=== PATIENT | female | born 1940 | race Caucasian/White ===

== ENCOUNTER 2016-06-10 13:27 | Inpatient (IN) | payer OTHER ==
[~2016-06-10] VITALS: Ht 160 cm; Wt 81.5 kg
[~2016-06-10 13:27] MED LIST: ALBUTEROL; BENAZEPRIL; CALC1TAB80 PO; GABA300C PO; GLYBURIDE; IBUP800T25 PO; LORATADINE; MULT1TAB59 PO; PHEN100C PO; SIMVASTATIN; SITA1TAB7 PO; ZOC10 PO
[2016-06-10 13:30] VITALS: Ht 160 cm; Wt 81.5 kg
--- NOTE | 2016-06-10 16:20 | RADRPT ---
PROCEDURE: XR Ankle. CLINICAL INDICATION: Left ankle pain TECHNIQUE: 3 views of the left ankle were performed. COMPARISON: None. FINDINGS: There is no evidence of acute fracture. There is diffuse soft tissue swelling. There is a plantar calcaneal enthesophyte. There are vascular calcifications. IMPRESSION: No radiographic evidence of acute osseous abnormality noting diffuse soft tissue swelling. RPTAT: [facility] .Gene Mason MD, MD Date Time Electronically viewed and signed by .Gene Mason MD, on 06/10/2016 16:20 .K/
--- NOTE | 2016-06-10 16:23 | RADRPT ---
PROCEDURE: XR right and left feet CLINICAL INDICATION: Bilateral foot pain TECHNIQUE: 3 views of the right foot and 3 views of the left foot were obtained. COMPARISON: No prior studies are available for comparison. FINDINGS: Right foot: There is erosive change of the third distal phalanx concerning for osteomyelitis. There is no evidence of acute fracture. There is a hallux valgus deformity with moderate degenerative ch anges at the first metatarsophalangeal joint and adjacent medial soft tissue swelling with a chronic -appearing capsular/soft tissue ossification. There are mild degenerative changes at the tarsometat arsal joints. There are vascular calcifications. There is a plantar calcaneal enthesophyte. Left foot: There is erosive change of the second distal phalanx concerning for osteomyelitis. There is no evidence of acute fracture. There is a hallux valgus deformity with moderate degenerative bobbi nges at the first metatarsophalangeal joint. There are mild degenerative changes at the tarsometata rsal joints. There are vascular calcifications. There is a plantar calcaneal enthesophyte. IMPRESSION: 1. Erosive changes are seen involving the right third distal phalanx and the left second distal phal anx, concerning for osteomyelitis, to be correlated clinically. If clinically indicated MRI may pro vide additional detail. 2. Hallux valgus deformities with moderate degenerative changes at the metatarsophalangeal joints bi laterally noting adjacent soft tissue swelling. 3. Diffuse soft tissue swelling and vascular calcifications bilaterally. RPTAT: [facility] .Gene Mason MD, Date Time Electronically viewed and signed by .Gene Mason MD, on 06/10/2016 16:23 .K/
[2016-06-10] MEDS ORDERED: ACETAMINOPHEN 325 MG TAB PO ONE (17:00)
[2016-06-10] MEDS ORDERED: IBUPROFEN 200 MG TAB PO ONE (17:00)
--- NOTE | 2016-06-10 17:02 | ERD ---
ER Documentation Chief Complaint Date/Time DATE: 06/10/16 TIME: 16:59 Chief Complaint BILATERAL TOE NON HEALING WOUND.Pt DIABETIC HPI This pleasant 75-year-old [place]bourgish-speaking female presented to emergency department today with draining left foot third phalanx ulcer/hammertoe. Right foot presents with nondraining ulcer, hammertoe, second phalanx, patient is a diabetic, history of foot ulcers in the past. Patient is brought in by her daughter who is upset, states that she works 7 days a week to make sure patient has all medication. 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 Patient is able to ambulate but reports pain. Currently has purulent discharge draining from the left toe ulcer. Right toe ulcer is dry. Chart reviewed demonstrates that patient has had a history of cellulitis in 2013. She has history of dementia, does not like hospitals, admits that foot wound has been present for approximately 6 months. She has borderline tachycardia and is afebrile at this time. Septic workup initiated. ROS All systems reviewed and are negative except as per history of present illness. Medications Home Meds Reported Medications Ibuprofen* (Ibuprofen*) 800 Mg Tablet, 800 MG PO Q8 Y 09/06/10 Sitagliptin Phos-Metformin Hcl (Janumet) 1 Tab Tablet, 2 TAB PO DAILY 09/06/10 Calcium Carbonate/Vitamin D3 (Oysco 500+D Tablet) 1 Tab Tablet, 2 TAB PO BID 09/06/10 Simvastatin (Simvastatin) 10 Mg Tablet, 10 MG PO HS 09/06/10 Gabapentin* (Neurontin*) 300 Mg Capsule, 300 MG PO TID 09/05/10 Multivitamins* (Multivitamins*) 1 Tab Tablet, 1 TAB PO DAILY 09/05/10 Phenytoin* Sodium Extended (Dilantin*) 100 Mg Capsule, 100 MG PO HS 09/05/10 [Albuterol] No Conflict Check 02/13/09 [Loratadine] No Conflict Check 02/13/09 [Benazepril] No Conflict Check 02/13/09 [Simvastatin] No Conflict Check 02/13/09 [Glyburide] No Conflict Check 02/13/09 Allergies Allergies: Coded Allergies: No Known Drug Allergies (Verified Allergy, Mild, 06/10/16) No Known Drug Allergy (Verified Allergy, Mild, 06/10/16) PMhx/Soc History of Surgery: Yes (BACK SURGERY) Anesthesia Reaction: No Hx Neurological Disorder: Yes (EPILEPSY) Hx Respiratory Disorders: No Hx Cardiac Disorders: Yes (HIGH CHOL) Hx Psychiatric Problems: No Hx Miscellaneous Medical Probl: Yes (DM , DEMENTIA ) Hx Alcohol Use: No Hx Substance Use: No Hx Tobacco Use: No Smoking Status: Never smoker Physical Exam Vitals Vital Signs Date Time Temp Pulse Resp B/P Pulse Ox O2 Delivery O2 Flow Rate FiO2 06/10/16 13:30 99.3 101 18 137/71 98 Tachycardic at 101. Afebrile at 99.3 Physical Exam Const: No acute distress Head: Atraumatic Eyes: Normal Conjunctiva, PERRLA, EOMI ENT: Normal External Ears, Nose and Mouth, mucous membranes moist Neck: Full range of motion..~ No meningismus. Resp: Chest rise and fall symmetrically, diminished posterior bases, no rales wheezes or rhonchi Cardio: Tachycardia regular, no murmurs Abd: Soft, non tender, non distended. Normal bowel sounds Skin: Nonhealing draining ulcer on left foot third phalanx, nonhealing nondraining ulcer on right foot second phalanx Back: No midline or flank tenderness Ext: Lower Extremity - bilateral: Skin: Nonhealing ulcer, draining purulent discharge noted to left foot third phalanx hammertoe, nonhealing dry ulcer right foot second phalanx hammertoe Compartments: Soft Motor: Stiff joint movement. Patient able to flex and extend ankles. Able to ambulate Sensation: Diminished sensation to feet, diabetic neuropathy Bones: Left foot presents with bunion, deformed toes, ulcers draining from third phalanx, hammertoes noted, right foot degenerative changes noted, dry scabbed ulcer at tip of hammertoe second phalanx Joints: No effusion or laxity Pulses/Perfusion: 2+ DP Neur: Awake and alert Psych: Normal Mood and Affect Result Diagram: 06/10/16 1655 06/10/161654 Results 24 hrs Laboratory Tests Test 06/10/16 16:45 06/10/16 16:55 06/10/16 17:00 06/10/16 17:45 Erythrocyte Sedimentation Rate 40mm/Hr Urine Color LT. YELLOW Urine Clarity CLOUDY Urine pH 6.0 Urine Specific [place] 1.010 Urine Ketones NEGATIVE Urine Nitrite POSITIVE Urine Bilirubin NEGATIVE Urine Urobilinogen 0.2 E.U./dL Urine Leukocyte Esterase 1+ Urine Microscopic RBC 2-5/HPF Urine Microscopic WBC 25-50/HPF Urine Squamous Epithelial Cells FEW Urine Bacteria MANY Urine Hemoglobin 2+ Urine Glucose >=1000% Urine Total Protein NEGATIVE White Blood Count 4.710^3/ul Red Blood Count 4.1610^6/ul Hemoglobin 12.8g/dl Hematocrit 37.3% Mean Corpuscular Volume 89.7fl Mean Corpuscular Hemoglobin 30.8pg Mean Corpuscular Hemoglobin Concent 34.3g/dl Red Cell Distribution Width 12.2% Platelet Count 64154^3/UL Mean Platelet Volume 9.9fl Neutrophils % 53.8% Lymphocytes % 37.3% Monocytes % 6.6% Eosinophils % 1.7% Basophils % 0.4% Nucleated Red Blood Cells % 0.0/100WBC Neutrophils # 2.510^3/ul Lymphocytes # 1.810^3/ul Monocytes # 0.310^3/ul Eosinophils # 0.110^3/ul Basophils # 0.010^3/ul Nucleated Red Blood Cells # 0.010^3/ul Prothrombin Time 11.9Sec Prothrombin Time Ratio 0.9 INR International Normalized Ratio 0.88 Activated Partial Thromboplast Time 27.2Sec Sodium Level 137mmol/L Potassium Level 4.7mmol/L Chloride Level 102mmol/L Carbon Dioxide Level 27mmol/L Anion Gap 13 Blood Urea Nitrogen 15mg/dl Creatinine 0.82mg/dl Glucose Level 367mg/dl Calcium Level 9.4mg/dl Total Bilirubin 0.0mg/dl Direct Bilirubin 0.00mg/dl Indirect Bilirubin 0.0mg/dl Aspartate Amino Transf (AST/SGOT) 21IU/L Alanine Aminotransferase (ALT/SGPT) 24IU/L Alkaline Phosphatase 146IU/L Total Protein 8.0g/dl Albumin 4.3g/dl Globulin 3.70g/dl Albumin/Globulin Ratio 1.16 Troponin I < 0.012ng/ml Lactic Acid Level 2.0mmol/L Test 06/10/16 19:45 Lactic Acid Level 2.9mmol/L Current Medications Medications (Trade) Dose Ordered Sig/Shavon Route PRN Reason Start Time Stop Time Status Last Admin Dose Admin Acetaminophen (Tylenol Tab) 650 mg ONCE ONCE PO 06/10/16 17:00 06/10/16 17:00 DC Ibuprofen 400 mg 400 mg ONCE ONCE PO 06/10/16 17:00 06/10/16 17:08 DC 06/10/16 17:16 Vancomycin HCl 250 ml @ 125 mls/hr ONCE ONCE IVPB 06/10/16 19:00 06/10/16 20:59 DC 06/10/16 19:25 Piperacillin Sod/ Tazobactam Sod 100 ml @ 200 mls/hr ONCE STAT IVPB 06/10/16 18:58 06/10/16 19:27 DC 06/10/16 19:10 Sodium Chloride 1,000 ml @ 1,000 mls/hr Q1H ONCE IV 06/10/16 20:00 06/10/16 20:59 DC 06/10/16 20:06 Vancomycin HCl (Vancocin) 250 ml @ 125 mls/hr ONCE IVPB 06/10/16 20:00 06/10/16 21:59 Ondansetron HCl (Zofran Inj) 4 mg BRIDGE ORDER PRN IV NAUSEA AND/OR VOMITING 06/10/16 20:30 06/11/16 20:29 Acetaminophen (Tylenol Tab) 650 mg ER BRIDGE PRN PO MILD PAIN/FEVER 06/10/16 20:30 06/11/16 20:29 Interpretation text CBC shows no evidence of hemorrhage or infection Chemistry shows no evidence of significant electrolyte abnormalities or renal insufficiency Liver function tests shows no evidence of acute biliary or hepatic dysfunction Coagulation study showed no concerning coagulpathy Lipase shows no evidence of acute pancreatitis Cardiac biomarkers show no evidence of acute myocardial injury or coronary ischemia Lactic acid 2.0 first draw Urinalysis positive for nitrates, bacteria, microscopic hematuria, findings consistent with urinary tract infection Departure Diagnosis: Primary Impression: Acute osteomyelitis of phalanx of foot Laterality: left Qualified Code: M86.172 - Acute osteomyelitis of phalanx of foot, left Additional Impressions: Poorly controlled diabetes mellitus Urinary tract infection Condition: Fair Comments As discussed with Dr. Cross, patient will be admitted for antibiotic treatment of osteomyelitis. There is practitioner orders 1 L of normal saline and 1 g of Vanco prior to going to floor. Patient discharged from emergency care, transferred to floor care. MOISES PALOMINO Jun 10, 2016 17:02
[2016-06-10 17:15] LABS: ADD SCAN DIFF NO
[2016-06-10 17:17] LABS: BASOPHILS % 0.4 % (0.0-2.0); EOSINOPHILS # 0.1 10^3/ul (0.0-0.5); EOSINOPHILS % 1.7 % (0.0-7.0); HEMATOCRIT 37.3 % (37.0-47.0); HEMOGLOBIN 12.8 g/dl (12.0-16.0); LYMPHOCYTES # 1.8 10^3/ul (0.8-2.9); LYMPHOCYTES % 37.3 % (15.0-51.0); MEAN CORPUSCULAR HEMOGLOBIN 30.8 pg (29.0-33.0); MEAN CORPUSCULAR HGB CONC 34.3 g/dl (32.0-37.0); MEAN CORPUSCULAR VOLUME 89.7 fl (82.0-101.0); MEAN PLATELET VOLUME 9.9 fl (7.4-10.4); MONOCYTE # 0.3 10^3/ul (0.3-0.9); MONOCYTES % 6.6 % (0.0-11.0); NEUTROPHIL # 2.5 10^3/ul (1.6-7.5); NEUTROPHILS % 53.8 % (39.0-77.0); PLATELET COUNT 229 10^3/UL (140-415); RED BLOOD COUNT 4.16 10^6/ul (4.20-5.40); RED CELL DISTRIBUTION WIDTH 12.2 % (11.5-14.5); WHITE BLOOD COUNT 4.7 10^3/ul (4.8-10.8)
[2016-06-10 17:30] LABS: ALBUMIN 4.3 g/dl (3.3-4.9); ALBUMIN/GLOBULIN RATIO 1.16; CALCIUM 9.4 mg/dl (8.4-10.2); CREATININE 0.82 mg/dl (0.44-1.00); POTASSIUM 4.7 mmol/L (3.5-5.1)
[2016-06-10 17:31] LABS: INR 0.88; PROTIME 11.9 Sec (12.2-14.2); PT RATIO 0.9
[2016-06-10 17:42] LABS: ADD UMIC YES; URINE BILIRUBIN (Dip) NEGATIVE (NEGATIVE); URINE BLOOD (Dip) 2+ (NEGATIVE); URINE COLOR LT. YELLOW (YELLOW); URINE GLUCOSE (Dip) >=1000 % (NEGATIVE); URINE KETONES (Dip) NEGATIVE (NEGATIVE); URINE LEUKOCYTE ESTERASE (Dip) 1+ (NEGATIVE); URINE NITRITE (Dip) POSITIVE (NEGATIVE); URINE TOTAL PROTEIN (Dip) NEGATIVE (NEGATIVE); URINE UROBILINOGEN (Dip) 0.2 E.U./dL (0.1-1.0)
[2016-06-10 18:08] LABS: PARTIAL THROMBOPLASTIN TIME 27.2 Sec (25.0-35.0)
[2016-06-10 18:12] LABS: BACTERIA,URINE MANY; SQUAMOUS EPITHELIAL CELL,UR FEW
[2016-06-10] MEDS ORDERED: PIPER-TAZO 3.375 GM IV (PMX) 100 ML IVPB STA (18:58)
[2016-06-10] MEDS ORDERED: VANCOMYCIN 1 GM (PMX) 250 ML IVPB ONE (19:00)
[2016-06-10] MEDS ORDERED: VANCOMYCIN 1 GM (PMX) 250 ML IVPB SCH (20:00)
[2016-06-10] MEDS ORDERED: SOD CHLORIDE 0.9% 1,000 ML IV ONE (20:00)
[2016-06-10] MEDS ORDERED: ONDANSETRON 4 MG INJ IV PRN ×2 (20:30→23:00)
[2016-06-10] MEDS ORDERED: ACETAMINOPHEN 325 MG TAB PO PRN ×2 (20:30→23:00)
[2016-06-10 21:30] VITALS: BP 183/73; RESP 16
[2016-06-10] MEDS ORDERED: VANCOMYCIN IV PER PHARMACY XX SCH (23:00)
[2016-06-10] MEDS ORDERED: morphine 4 MG/ML VIAL IV PRN (23:00)
[2016-06-10] MEDS ORDERED: hydrALAzine 20 MG INJ IV PRN (23:00)
[2016-06-10] MEDS ORDERED: GLUCAGON 1 MG INJ IM PRN (23:30)
[2016-06-10] MEDS ORDERED: GLUCOSE GEL 15 GRAM TUBE BUCCAL PRN (23:30)
[2016-06-10] MEDS ORDERED: GLUCOSE GEL 15 GRAM TUBE PO PRN ×2 (23:30)
[2016-06-10] MEDS ORDERED: DEXTROSE 50% 50 ML SYRINGE IV PRN ×2 (23:30)
[2016-06-11 01:01] VITALS: BP 132/60; RESP 16
[2016-06-11] MEDS ORDERED: INSULIN GLARGINE [LANtus] 3 ML PEN SC STA (02:31)
[2016-06-11] MEDS ORDERED: INSULIN ASPART [NOVOLOG] 3 ML PEN SC STA (02:31)
[2016-06-11] MEDS: ACCU-CHEK XX SCH (02:31)
[2016-06-11 05:00] LABS: ADD SCAN DIFF NO
[2016-06-11 05:24] LABS: ALBUMIN 3.1 g/dl (3.3-4.9); CALCIUM 8.1 mg/dl (8.4-10.2); CREATININE 0.6 mg/dl (0.44-1.00); MAGNESIUM 1.6 mg/dl (1.7-2.5); PHOSPHORUS 3.5 mg/dl (2.5-4.9); POTASSIUM 4.1 mmol/L (3.5-5.1); TOTAL PROTEIN 6.2 g/dl (6.1-8.1)
[2016-06-11 07:15] LABS: BASOPHILS % 0.5 % (0.0-2.0); EOSINOPHILS # 0.1 10^3/ul (0.0-0.5); EOSINOPHILS % 1.7 % (0.0-7.0); HEMATOCRIT 32.8 % (37.0-47.0); HEMOGLOBIN 11.3 g/dl (12.0-16.0); LYMPHOCYTES # 1.5 10^3/ul (0.8-2.9); LYMPHOCYTES % 36.4 % (15.0-51.0); MEAN CORPUSCULAR HEMOGLOBIN 30.8 pg (29.0-33.0); MEAN CORPUSCULAR HGB CONC 34.5 g/dl (32.0-37.0); MEAN CORPUSCULAR VOLUME 89.4 fl (82.0-101.0); MEAN PLATELET VOLUME 9.4 fl (7.4-10.4); MONOCYTE # 0.3 10^3/ul (0.3-0.9); MONOCYTES % 7.9 % (0.0-11.0); NEUTROPHIL # 2.2 10^3/ul (1.6-7.5); NEUTROPHILS % 53.5 % (39.0-77.0); PLATELET COUNT 201 10^3/UL (140-415); RED BLOOD COUNT 3.67 10^6/ul (4.20-5.40)
[2016-06-11 07:22] VITALS: BP 138/65; RESP 18
[2016-06-11] MEDS ORDERED: INSULIN GLARGINE [LANtus] 3 ML PEN SC SCH ×2 (08:00→21:00)
[2016-06-11] MEDS: CEFEPIME 1GM/50 ML (PMX) 50 ML IVPB SCH ×2 (08:21→21:05)
[2016-06-11] MEDS: GABAPENTIN 300 MG CAP PO SCH ×3 (08:21→21:05)
--- NOTE | 2016-06-11 08:22 | HP ---
DATE OF ADMISSION: 06/10/2016 TIME SEEN: 2300 CHIEF COMPLAINT: Right and left foot toe swelling and ongoing infection. HISTORY OF PRESENT ILLNESS: The patient is a 75-year-old female with a history of diabetes, dementi a, seizure, and dyslipidemia who was brought to the ER with her daughter for worsening bilateral toe wound and swelling. The patient had been having this problem for a long time now, and daughter sta rich recently it has gotten worse and that she is upset that the caretakers have not been notifying h er about the worsening condition of the wound. When she presented to the ER, the patient had purule nt discharge draining from the left 3rd toe, but her other ulcer/swelling on her right second toe whatley s been dry. She had a foot x-ray and it was read as erosive change involving the right 3rd distal p halanx and the left 2nd distal phalanx concerning for osteomyelitis. Also noted was diffuse soft ti ssue swelling and vascular calcification bilaterally. She initially presented with a blood pressure of 137/71, heart rate 101, respiratory rate 18, temperature 99.3, oxygen saturation 98% on room air . Blood pressure has been as high as 183/73 while she was in the ER. Laboratory values show a WBC of 4.7, initial blood glucose of 367, alkaline phosphatase 146. Otherwise, CBC and CMP are within a cceptable range. The patient was started on vancomycin and Zosyn while she was in the ER. REVIEW OF SYSTEMS: A 12-point review of systems was performed, negative except as mentioned in the HPI. PAST MEDICAL HISTORY: As per HPI. PAST SURGICAL HISTORY: , hysterectomy and back surgery. SOCIAL HISTORY: No history of tobacco, alcohol or illicit drug use. ALLERGIES: NO KNOWN DRUG ALLERGIES. HOME MEDICATIONS: 1. Zocor. 2. Gabapentin. 3. Ibuprofen. 4. Dilantin. 5. Calcium. 6. Vitamin D. 7. Janumet. 8. Multivitamin. PHYSICAL EXAMINATION: VITAL SIGNS: Blood pressure 132/60, heart rate 82, respiratory rate 16, temperature 98.2, oxygen sa turation 97%. GENERAL: The patient lying in bed, no acute distress, not fully oriented. She was sleepy, arousabl e with verbal commands. HEENT: No obvious head deformity. Pupils are reactive to light. Extraocular muscles intact. CARDIOVASCULAR: Regular rate and rhythm with no extra sounds. LUNGS: Clear anteriorly. ABDOMEN: Soft, nontender, nondistended. No grimaces noted on palpation. There are positive bowel sounds. EXTREMITIES: There is a ____ draining ulcer on the left 3rd toe/phalanx and also another ulcer on t he right 2nd phalanx/toe. LABORATORY DATA: Pertinent positives as mentioned in HPI. IMAGING: Foot x-ray with results as mentioned in the HPI. IMPRESSION: 1. Right 3rd phalanx and left 2nd phalanx osteomyelitis. 2. Diabetes with hyperglycemia. 3. Lactic acidosis. 4. History of hypertension. 5. History of seizure disorder. 6. History of dyslipidemia. 7. Dementia. PLAN: She will be placed on broad-spectrum antibiotic. We will follow up on the culture results. We will place an ID consult. ER already consulted Dr. Yanez, the orthopedic surgeon, and we will foll ow up his recommendations. We will provide pain medication as needed. She will be on insulin with adjustment as needed for her diabetes/hyperglycemia. Further workup and management per clinical course. Dictated By: YANNICK COTTRELL/LEI Conf#: [id number] DID#: [id number]
[2016-06-11] MEDS: HEPARIN 5,000 UNIT/0.5 ML VIAL SC SCH ×2 (08:29→21:42)
[2016-06-11] MEDS: INSULIN ASPART [NOVOLOG] 3 ML PEN SC SCH ×4 (08:29→21:43)
[2016-06-11] MEDS ORDERED: MULTIVITAMINS THERAPEUTIC TAB PO SCH (09:00)
[2016-06-11] MEDS ORDERED: CALCIUM/VITAMIN D (500/200) TAB PO SCH (09:00)
[2016-06-11] MEDS: VANCOMYCIN 1.5 GM in SOD CHLORIDE 0.9% 250 ML IVPB SCH (09:04)
[2016-06-11] MEDS: SOD CHLORIDE 0.45% 1,000 ML IV SCH (16:47)
[2016-06-11] MEDS ORDERED: MAGNESIUM SULFATE 2 GM/50 ML 50 ML IVPB ONE (17:00)
[2016-06-11 17:09] LABS: CHOL/HDL RATIO 3.8 RATIO
--- NOTE | 2016-06-11 19:50 | CONS ---
DATE OF ADMISSION: 06/10/2016 DATE OF CONSULTATION: 06/11/2016 TYPE OF CONSULTATION: Orthopedic surgery. HISTORY OF PRESENT ILLNESS: The patient is a 75-year-old female with a known history of diabetes, s eizure disorder and dementia and dyslipidemia who was admitted on 06/10/2016 when she was brought in to the emergency room complaining of chronic ulceration involving left 2nd toe and right 3rd toe. A ccording to the available history, this ulceration has been present for some time and has been cover ed with scab. However, the family member discovered some drainage from under the scab over the tip of the left 2nd toe, and the patient was admitted. At the time of the admission, she was showing a low-grade temperature of 99.3. However, there was n o leukocytosis with a WBC count of 4.7. My examination revealed a 75-year-old female who was not in any acute distress. The tip of the righ t 3rd toe was covered with dry scab without any visible ulceration at this time, and there was no di scharge. The tip of the left 2nd toe was also covered with scab. However, I was not able to detect any active drainage at the time of my examination. There were no signs of acute cellulitis or ongo ing acute pyogenic process. There were no signs of any ischemia involving both lower extremities at this time. The tibialis posterior was palpable frankly over both lower extremities, and popliteal artery was palpable bilaterally. X-rays of both feet were available for my review, and they show partial destruction of the distal ti p of distal phalanx of the right 3rd toe and left 2nd toe. MRI scan has been ordered, but the outco me is not available for my review yet. DIAGNOSTIC IMPRESSION: Chronic ulceration over the tip of the 3rd toe of the right foot and the tip of the 2nd toe of the left foot with possible osteomyelitis of the distal phalanx of the involved e ach toe. RECOMMENDATIONS FOR MANAGEMENT: Consult Podiatry for further followup including possible followup a s an outpatient in [facility]. Dictated By: OSCAR BURNETT/LEI Conf#: [id number] DID#: [id number]
[2016-06-11 20:00] VITALS: BP 147/67; RESP 20
[2016-06-11] MEDS ORDERED: NON-FORMULARY/PATIENT OWN MED (Simvastatin 10 MG) PO SCH (21:00)
[2016-06-11] MEDS ORDERED: PHENYTOIN 100 MG CAP PO SCH (21:00)
[2016-06-11] MEDS: CALCIUM/VITAMIN D (500/200) TAB PO SCH (21:06)
[2016-06-11] MEDS: PHENYTOIN 100 MG CAP PO SCH (21:06)
[2016-06-11] MEDS: ATORVASTATIN 10 MG TAB PO SCH (21:06)
[2016-06-12] MEDS: ACCU-CHEK XX SCH (02:28)
--- NOTE | 2016-06-12 02:37 | RADRPT ---
PROCEDURE: MR Foot. CLINICAL INDICATION: Left second toe and second metatarsal pain. TECHNIQUE: Noncontrast MRI of the left midfoot to forefoot, with axial, sagittal and coronal image s. T1-weighted, STIR sequences were employed. COMPARISON: Foot x-ray dated 06/10/2016 is not available for comparison at the time of this interpr etation. FINDINGS: There are no fractures or dislocations. There are no stress fractures. Hallux valgus and bunion wi th degenerative changes of the first metatarsal phalangeal joint. Bipartite tibial sesamoid. The r emaining articular surfaces are unremarkable. The visualized portions of the midfoot are normal. Question soft tissue defect at the plantar aspect of the left second toe with decrease T1-weighted s ignal in the distal phalanx, which can be seen in association with osteomyelitis. Differential consi derations include magnetic susceptibility artifact in the distal toe. The Lisfranc ligament is identified and is unremarkable. The remaining visualized ligamentous struc tures are unremarkable. All visualized flexor and extensor mechanism tendons are normal. There is no muscular atrophy. There are no abnormal fluid collections. IMPRESSION: 1. Question osteomyelitis of the distal phalanx of the left second toe. 2. Question soft tissue defect at the plantar aspect of the left second toe. 3. No acute process identified in the second metatarsal. 4. Hallux valgus and bunion. 5. Otherwise, no acute process identified in the left forefoot. RPTAT: [facility] Physician Janay Date Time Electronically viewed and signed by Physician Janay on 06/12/2016 02:37 RS/
--- NOTE | 2016-06-12 02:53 | RADRPT ---
PROCEDURE: MR Foot. CLINICAL INDICATION: Right third toe pain TECHNIQUE: Noncontrast MRI of the right midfoot to forefoot, with axial, sagittal and coronal images . T1-weighted, STIR sequences were employed. COMPARISON: Foot x-ray dated 06/10/2016. FINDINGS: There are no fractures or dislocations. There are no stress fractures. Hallux valgus and bunion with degenerative changes of the first metatarsal phalangeal joint. The remaining articular surfaces are unremarkable. The visualized portions of the midfoot are normal. Question soft tissue defect at the plantar aspect of the right third toe with decreased T1-weighted signal in the distal phalanx, which can be seen in association with osteomyelitis. Differential cons iderations include magnetic susceptibility artifact in the distal toe. The Lisfranc ligament is identified and is unremarkable. The remaining visualized ligamentous struct ures are unremarkable. All visualized flexor and extensor mechanism tendons are normal. There is no muscular atrophy. There are no abnormal fluid collections. IMPRESSION: 1. Question osteomyelitis of the distal phalanx of the right third toe. 2. Question soft tissue defect at the plantar aspect of the right third toe. 3. Hallux valgus and bunion. 4. Otherwise, no acute process identified in the right forefoot. RPTAT: [facility] Physician Janay Date Time Electronically viewed and signed by Physician Janay on 06/12/2016 02:53 RS/
[2016-06-12] MEDS: SOD CHLORIDE 0.45% 1,000 ML IV SCH ×2 (05:20→17:25)
[2016-06-12] MEDS: PANTOPRAZOLE (EC) 40 MG TAB PO SCH (05:26)
[2016-06-12 06:04] LABS: ADD SCAN DIFF NO
[2016-06-12 06:13] LABS: BASOPHILS % 0.2 % (0.0-2.0); EOSINOPHILS # 0.1 10^3/ul (0.0-0.5); EOSINOPHILS % 1.9 % (0.0-7.0); HEMATOCRIT 35.8 % (37.0-47.0); HEMOGLOBIN 11.9 g/dl (12.0-16.0); LYMPHOCYTES # 1.7 10^3/ul (0.8-2.9); LYMPHOCYTES % 40.4 % (15.0-51.0); MEAN CORPUSCULAR HEMOGLOBIN 29.6 pg (29.0-33.0); MEAN CORPUSCULAR HGB CONC 33.2 g/dl (32.0-37.0); MEAN CORPUSCULAR VOLUME 89.1 fl (82.0-101.0); MEAN PLATELET VOLUME 9.7 fl (7.4-10.4); MONOCYTE # 0.4 10^3/ul (0.3-0.9); MONOCYTES % 8.9 % (0.0-11.0); NEUTROPHILS % 48.4 % (39.0-77.0); PLATELET COUNT 206 10^3/UL (140-415); RED BLOOD COUNT 4.02 10^6/ul (4.20-5.40); RED CELL DISTRIBUTION WIDTH 12.1 % (11.5-14.5); WHITE BLOOD COUNT 4.2 10^3/ul (4.8-10.8)
[2016-06-12 06:22] LABS: POTASSIUM 4.3 mmol/L (3.5-5.1)
[2016-06-12 06:24] LABS: CREATININE 0.62 mg/dl (0.44-1.00)
[2016-06-12 07:19] VITALS: BP 128/61; RESP 18
--- NOTE | 2016-06-12 08:05 | PN ---
DATE: 06/11/2016 SUBJECTIVE: No acute events overnight. The patient presently off the floor at MRI scan. OBJECTIVE VITAL SIGNS: Stable. Physical exam unable to be performed presently because the patient is off the floor at MRI scan right now. LABORATORY DATA: CBC is normal. Hemoglobin A1c is 11.0. Basic metabolic panel was normal except s ugar is 318 on BMP, magnesium is 1.6, phosphorus 3.5. LFTs are normal. UA shows 1+ leukocyte jonathan ase positive. The urine culture shows gram-negative rods greater than 100,000. There is no bug iden tified yet. The ankle and foot x-rays have been mentioned before. ASSESSMENT AND PLAN: A 75-year-old female coming in with right 3rd phalanx and 2nd left phalanx ost eomyelitis as well as history of diabetes and also some lactic acidosis which is resolving, history of hypertension, seizures. 1. Osteomyelitis of the right 3rd phalanx and left 2nd phalanx of the feet, so we will go ahead and put the patient on broad spectrum antibiotics, get podiatry orthopedic surgery consult. Apparently Dr. Yanez was paged in the ER to come see the patient. Also get a podiatry consult as well. We will follow up MRI results of both feet to see the extent of the osteomyelitis in the toes that are menti oned. Check TSH, A1c, lipid panel, IV fluids, pain control medications as well. Check CBC and basic metabolic panel in the morning as well. 2. History of type 2 diabetes. Again, put her on sliding scale insulin, also the Lantus insulin as well and monitor sugars very carefully. 3. Essential hypertension. Blood pressure is presently stable. Continue hydralazine p.r.n. systol ic greater than 160. 4. History of seizure activity. Again no signs of any seizures. Continue Dilantin. 5. High cholesterol, follow up lipid panel. Continue Lipitor. 6. Gastrointestinal prophylaxis, PPI. 7. Deep venous thrombosis prophylaxis. Heparin subcutaneously. Consider PT consult as well. Dictated By: REBECA URBANO/LEI Conf#: [id number] DID#: [id number]
[2016-06-12] MEDS: INSULIN ASPART [NOVOLOG] 3 ML PEN SC SCH ×6 (08:17→21:12)
[2016-06-12] MEDS: HEPARIN 5,000 UNIT/0.5 ML VIAL SC SCH ×2 (08:19→21:12)
[2016-06-12] MEDS: CEFEPIME 1GM/50 ML (PMX) 50 ML IVPB SCH ×2 (08:21→20:50)
[2016-06-12] MEDS: CALCIUM/VITAMIN D (500/200) TAB PO SCH ×2 (08:21→20:49)
[2016-06-12] MEDS: VANCOMYCIN 1.5 GM in SOD CHLORIDE 0.9% 250 ML IVPB SCH (08:21)
[2016-06-12] MEDS: GABAPENTIN 300 MG CAP PO SCH ×3 (08:21→20:49)
[2016-06-12] MEDS: MULTIVITAMINS THERAPEUTIC TAB PO SCH (08:21)
--- NOTE | 2016-06-12 14:30 | PN ---
Date/Time of Note Date/Time of Note DATE: 06/12/16 TIME: 14:17 Assessment/Plan VTE Prophylaxis VTE Prophylaxis Intervention: heparin Lines/Catheters IV Catheter Type (from Nrsg): Peripheral IV Assessment/Plan Assessment/Plan 75-year-old female coming in with right 3rd phalanx and 2nd left phalanx osteomyelitis as well as history of diabetes and also some lactic acidosis which is resolving, history of hypertension, seizures. 1. Osteomyelitis of the right 3rd phalanx and left 2nd phalanx of the feet, 2. Type 2 diabetes A1C 11.0: Suboptimal inhouse control 3. Essential hypertension: fairly good control 4. Chronic Seizure d/o 5. Dyslipidemia 6. Ecoli UTI PLAN: * Continue current abx * Podiatry and ID consult * Titrate insulin for better control * resume home NOAH i * Gastrointestinal prophylaxis, PPI. * Deep venous thrombosis prophylaxis. Heparin subcutaneously * PRN pain control/ antiemetics/ antipyretics/ supportive care Exam/Review of Systems Vital Signs Vitals Vital Signs Date Time Temp Pulse Resp B/P Pulse Ox O2 Delivery O2 Flow Rate FiO2 06/12/16 07:19 98.5 75 18 128/61 98 Intake and Output 06/11/16 06/11/16 06/12/16 15:00 23:00 07:00 Intake Total 250 ml 1250 ml 900 ml Output Total 4 ml Balance 250 ml 1246 ml 900 ml Results Result Diagram: 06/12/16 0500 06/12/16 0500 Results 24 hrs Laboratory Tests Test 06/11/16 16:49 06/11/16 16:50 06/11/16 21:09 06/12/16 02:25 Bedside Glucose 197 267 H 212 Triglycerides Level 231 H Cholesterol Level 187 LDL Cholesterol, Calculated 93 HDL Cholesterol 48 Cholesterol/HDL Ratio 3.8 Test 06/12/16 05:00 06/12/16 07:39 06/12/16 11:42 White Blood Count 4.2 L Red Blood Count 4.02 L Hemoglobin 11.9 L Hematocrit 35.8 L Mean Corpuscular Volume 89.1 Mean Corpuscular Hemoglobin 29.6 Mean Corpuscular Hemoglobin Concent 33.2 Red Cell Distribution Width 12.1 Platelet Count 206 Mean Platelet Volume 9.7 Neutrophils % 48.4 Lymphocytes % 40.4 Monocytes % 8.9 Eosinophils % 1.9 Basophils % 0.2 Nucleated Red Blood Cells % 0.0 Neutrophils # 2.0 Lymphocytes # 1.7 Monocytes # 0.4 Eosinophils # 0.1 Basophils # 0.0 Nucleated Red Blood Cells # 0.0 Sodium Level 137 Potassium Level 4.3 Chloride Level 101 Carbon Dioxide Level 28 Anion Gap 12 Blood Urea Nitrogen 14 Creatinine 0.62 Glucose Level 247 H Calcium Level 10.0 Bedside Glucose 234 H 256 H Medications Medications Current Medications Hydralazine HCl (Apresoline) 10 mg Q4H PRN IV ELEVATED BLOOD PRESSURE; Start at 23:00 Morphine Sulfate (morphine) 3 mg Q4H PRN IV PAIN; Start 06/10/16 at 23:00 Acetaminophen (Tylenol Tab) 650 mg Q6H PRN PO PAIN AND OR ELEVATED TEMP; Start 06/10/16 at 23:00 Ondansetron HCl (Zofran Inj) 4 mg Q6H PRN IV NAUSEA AND/OR VOMITING; Start at 23:00 Heparin Sodium (Porcine) 5000 unit 5,000 unit Q12 SC Last administered on 08:19; Admin Dose 5,000 UNIT; Start 06/11/16 at 09:00 Cefepime HCl (Maxipime 1gm/50 ml (Pmx)) 50 ml @ 100 mls/hr Q12 IVPB Last administered on 06/12/16 08:21; Admin Dose 100 MLS/HR; Start 06/11/16 at 09:00 Atorvastatin Calcium (Lipitor) 10 mg HS PO Last administered on 06/11/16 21:06 ; Admin Dose 10 MG; Start 06/11/16 at 21:00 Diagnostic Test (Pha) (Accu-Chek) 1 ea 02 XX Last administered on 06/12/16 02: 28; Admin Dose 1 EA; Start 06/11/16 at 02:00 Miscellaneous Information 1 ea NOTE XX ; Start 06/10/16 at 23:30 Glucose (Glutose) 15 gm Q15M PRN PO DECREASED GLUCOSE; Start 06/10/16 at 23:30 Glucose (Glutose) 22.5 gm Q15M PRN PO DECREASED GLUCOSE; Start 06/10/16 at 23: 30 Dextrose (D50w Syringe) 25 ml Q15M PRN IV DECREASED GLUCOSE; Start 06/10/16 at 23:30 Dextrose (D50w Syringe) 50 ml Q15M PRN IV DECREASED GLUCOSE; Start 06/10/16 at 23:30 Glucagon (Glucagen) 1 mg Q15M PRN IM DECREASED GLUCOSE; Start 06/10/16 at 23:30 Glucose 15 gm 15 gm Q15M PRN BUCCAL DECREASED GLUCOSE; Start 06/10/16 at 23:30 Vancomycin HCl/ Sodium Chloride (Vancocin/NS) 250 ml @ 83.333 mls/ hr Q24H IVPB Last administered on 06/12/16 08:21; Admin Dose 83.333 MLS/HR; Start at 08:00 Insulin Glargine (Lantus) 15 unit QHS SC Last administered on 06/11/16 21:43; Admin Dose 15 UNIT; Start 06/11/16 at 21:00 Calcium/Vitamin D (Oyster Shell/ Vit-D (500/200)) 2 tab BID PO Last administered on 06/12/16 08:21; Admin Dose 2 TAB; Start 06/11/16 at 21:00 Gabapentin (Neurontin) 300 mg TID PO Last administered on 06/12/16 12:18; Admin Dose 300 MG; Start 06/11/16 at 21:00 Multivitamins Therapeutic (Theragran) 1 tab DAILY PO Last administered on 08:21; Admin Dose 1 TAB; Start 06/12/16 at 09:00 Phenytoin 100 mg 100 mg HS PO Last administered on 06/11/16 21:06; Admin Dose 100 MG; Start 06/11/16 at 21:00 Sodium Chloride (1/2 NS) 1,000 ml @ 75 mls/hr [id number] IV Last administered on 06/11/16 16:47; Admin Dose 75 MLS/HR; Start 06/11/16 at 16:00 Pantoprazole (Protonix Tab) 40 mg DAILY@06 PO Last administered on 06/12/16 05 :26; Admin Dose 40 MG; Start 06/12/16 at 06:00 Procedures Procedures PROCEDURE: MR Foot. CLINICAL INDICATION: Right third toe pain TECHNIQUE: Noncontrast MRI of the right midfoot to forefoot, with axial, sagittal and coronal images. T1-weighted, STIR sequences were employed. COMPARISON: Foot x-ray dated 06/10/2016. FINDINGS: There are no fractures or dislocations. There are no stress fractures. Hallux valgus and bunion with degenerative changes of the first metatarsal phalangeal joint. The remaining articular surfaces are unremarkable. The visualized portions of the midfoot are normal. Question soft tissue defect at the plantar aspect of the right third toe with decreased T1-weighted signal in the distal phalanx, which can be seen in association with osteomyelitis. Differential considerations include magnetic susceptibility artifact in the distal toe. The Lisfranc ligament is identified and is unremarkable. The remaining visualized ligamentous structures are unremarkable. All visualized flexor and extensor mechanism tendons are normal. There is no muscular atrophy. There are no abnormal fluid collections. IMPRESSION: 1. Question osteomyelitis of the distal phalanx of the right third toe. 2. Question soft tissue defect at the plantar aspect of the right third toe. 3. Hallux valgus and bunion. 4. Otherwise, no acute process identified in the right forefoot. RPTAT: [facility] Physician Janay Date Time Electronically viewed and signed by Physician Janay on 06/12/2016 02:53 RS/ CC: YANNICK WINSTON MD PROCEDURE: MR Foot. CLINICAL INDICATION: Left second toe and second metatarsal pain. TECHNIQUE: Noncontrast MRI of the left midfoot to forefoot, with axial, sagittal and coronal images. T1-weighted, STIR sequences were employed. COMPARISON: Foot x-ray dated 06/10/2016 is not available for comparison at the time of this interpretation. FINDINGS: There are no fractures or dislocations. There are no stress fractures. Hallux valgus and bunion with degenerative changes of the first metatarsal phalangeal joint. Bipartite tibial sesamoid. The remaining articular surfaces are unremarkable. The visualized portions of the midfoot are normal. Question soft tissue defect at the plantar aspect of the left second toe with decrease T1-weighted signal in the distal phalanx, which can be seen in association with osteomyelitis. Differential considerations include magnetic susceptibility artifact in the distal toe. The Lisfranc ligament is identified and is unremarkable. The remaining visualized ligamentous structures are unremarkable. All visualized flexor and extensor mechanism tendons are normal. There is no muscular atrophy. There are no abnormal fluid collections. IMPRESSION: 1. Question osteomyelitis of the distal phalanx of the left second toe. 2. Question soft tissue defect at the plantar aspect of the left second toe. 3. No acute process identified in the second metatarsal. 4. Hallux valgus and bunion. 5. Otherwise, no acute process identified in the left forefoot. RPTAT: [facility] Physician Janay Date Time Electronically viewed and signed by Physician Janay on 06/12/2016 02:37 RS/ CC: YANNICK WINSTON MD, BOLATITO M. Jun 12, 2016 14:29
[2016-06-12] MEDS ORDERED: DIPHENHYDRAMINE 50 MG INJ IV PRN (17:00)
[2016-06-12] MEDS ORDERED: SILVER SULFADIAZINE 1% 25 GM CR TOP ONE (17:00)
[2016-06-12] MEDS ORDERED: VANCOMYCIN IV PER PHARMACY XX SCH (18:30)
[2016-06-12] MEDS: DIPHENHYDRAMINE 25 MG CAP PO PRN (18:47)
--- NOTE | 2016-06-12 19:17 | CONS ---
DATE OF ADMISSION: 06/10/2016 DATE OF CONSULTATION: 06/12/2016 REFERRING PHYSICIAN: Dr. Kevan Penn REASON FOR CONSULTATION: Bilateral foot ulcerations. HISTORY OF PRESENT ILLNESS: This is a 75-year-old female with diabetes, nonhealing wounds to bilate ral feet. Had been on oral antibiotic with no significant improvement. The patient admitted and fu rther workup including foot x-ray as well as MRI concerning for osteomyelitis. The patient was init iated on IV antibiotics. PAST MEDICAL HISTORY: Diabetes, dementia, history of seizure disorder, diabetes type 2. PAST SURGICAL HISTORY: 1. . 2. Hysterectomy. 3. Back surgery. SOCIAL HISTORY: Denies any tobacco, alcohol use. ALLERGIES: NONE. MEDICATIONS: 1. Zocor. 2. Gabapentin. 3. Ibuprofen. 4. Dilantin. 5. Calcium. 6. Vitamin D. 7. Janumet. 6. Multivitamin. PHYSICAL EXAMINATION: VITAL SIGNS: Temperature 98.5, pulse is 75, respiratory rate 18, blood pressure is 128/61, pulse ox is 98%. GENERAL: The patient is alert, oriented, in no acute distress. HEENT: Head is normocephalic, atraumatic. NECK: Trachea is midline. EXTREMITIES: The patient with bilateral feet hallux valgus deformity, hammertoe deformity. There i s ulceration with an unstageable eschar to the left second toe. Pain with palpation. Right third t oe, ulceration distal aspect with seropurulent drainage. Skin is dry. No palpable pedal pulses. T here is a 2+ popliteal pulse bilaterally. SKIN: Warm. NEUROLOGIC: 5/5 dorsiflexion, plantarflexion bilateral ankles. LABORATORIES: WBC 4.2, hemoglobin 11.9, hematocrit 35.8, platelets 206. Sodium 137, potassium 4.3, chloride 101, BUN 14, creatinine 0.62, glucose 247. Blood cultures no growth. Urine culture E. co li. Arterial tests pending. MRI left foot, questionable osteomyelitis, distal phalanx, left second toe, and questionable osteomyelitis of distal phalanx of the right third toe. Foot x-ray reveals e rosive changes of the right third distal phalanx and left second distal phalanx. ASSESSMENT: 1. Diabetic foot ulceration, left second toe, right third toe. 2. Cellulitis. 3. Osteomyelitis. 4. Diabetes type 2. 5. Peripheral arterial disease. PLAN: The patient seen and evaluated. Culture was not obtained due to eschars being dry. Recommen d debridement. Consent obtained. Performed at bedside. Excisional debridement of skin, subcutaneo us tissue, left second toe and right third toe. Obtained cultures of both. Both were irrigated and recommend daily application of Silvadene. Recommend vascular consultation. Dr. San consulted. A rterial noninvasive exam ordered and await his recommendations. The patient likely to require parti al amputation of toes if no improvement with infection. Recommend tight glycemic control. Dictated By: JOVANNA SIMMONS/LEI Conf#: [id number] DID#: [id number]
--- NOTE | 2016-06-12 20:07 | CONS ---
DATE OF ADMISSION: 06/10/2016 DATE OF CONSULTATION: 06/12/2016 TYPE OF CONSULTATION: Infectious disease. REASON FOR CONSULTATION: Antibiotic management. HISTORY OF PRESENT ILLNESS: Louise Pacheco is a 75-year-old female who comes in with right and left foot toe swelling and infection. Her past problems include: 1. Adult-onset diabetes mellitus. 2. Senile dementia. 3. Seizures. 4. Dyslipidemia. 5. Status post . 6. Status post hysterectomy. 7. History of back surgery. Acutely, the patient comes in with worsening bilateral toe wounds and swelling. The patient had pur ulent discharge in the emergency room draining from the left third toe, but her other ulcer on the r ight second toe has been dry. An x-ray of the foot showed erosive changes involving the right third distal phalanx and the left second distal phalanx "concerning" for osteomyelitis. Also noted was d iffuse soft tissue swelling and vascular calcifications bilaterally. She initially presented with a blood pressure 137/71. Blood pressure has been as high as 183/73 in the ER. On admission, her whi te count was 4.7, H and H 12.8 and 37.3, platelet count 229,000. On the , white count was 4.2 a nd her BUN and creatinine 14/0.62. Urine is positive for nitrite, 1+ leukocyte esterase, 2+ hemoglo bin, also she had 25 to 50 white cells per high-power field. An MRI of the right foot, questionable osteomyelitis of the distal phalanx of the right third toe, questionable soft tissue defect on the plantar aspect of the right third toe. On the left foot, questionable osteomyelitis of the distal p halanx of the left second toe and questionable soft tissue defect at the plantar aspect of the left second toe. No acute process identified in the second metatarsal. Otherwise no acute process ident ified in the left forefoot. Her ankle x-ray: No radiographic evidence of acute osseous abnormality , noting diffuse soft tissue swelling. MICROBIOLOGY: Her urine is growing E. coli sensitive to cefazolin and cefotaxime. She is currently on vancomycin and cefepime, so she is well covered. She may need a PICC line and 6 weeks of antibiotic therapy. Wound cultures were done by Dr. Lee. I will dictate my findings to the hospitalist and to Dr. Lee. Dictated By: KT BROWNING MD, JD/LEI Conf#: [id number] DID#: [id number] CC: YANNICK WINSTON MD;*End*
[2016-06-12] MEDS: PHENYTOIN 100 MG CAP PO SCH (20:49)
[2016-06-12] MEDS: ATORVASTATIN 10 MG TAB PO SCH (20:49)
[2016-06-12] MEDS ORDERED: CEFEPIME 1GM/50 ML (PMX) 50 ML IVPB SCH (21:00)
[2016-06-12] MEDS ORDERED: INSULIN GLARGINE [LANtus] 3 ML PEN SC SCH (21:00)
[2016-06-12 21:02] VITALS: BP 137/60; RESP 19
[2016-06-12] MEDS ORDERED: INSULIN ASPART [NOVOLOG] 3 ML PEN SC ONE (21:30)
--- NOTE | 2016-06-12 23:51 | CONS ---
Date/Time of Note Date/Time of Note DATE: 06/12/16 TIME: 23:51 Assessment/Plan Assessment/Plan Problems: (1) Non-pressure chronic ulcer of other part of right foot limited to breakdown of skin (2) Non-pressure chronic ulcer of other part of left foot with fat layer exposed (3) Peripheral vascular disease (4) Poorly controlled diabetes mellitus Status: Acute (5) Acute osteomyelitis of phalanx of foot Status: Acute Qualifiers: Qualified Code: M86.172 - Acute osteomyelitis of phalanx of foot, left (6) PAD (peripheral artery disease) Additional Assessment/Plan Patient has been seen by another internal control specialist who has done cultures at bedside. Pending culture results. Continue IV antibiotics. Patient will be seen in house. Consultation Date/Type/Reason Admit Date/Time Jun 10, 2016 at 20:31 Date of Consultation: Jun 12, 2016 Type of Consultation: Foot and ankle surgery Reason for Consultation Evaluation of open wound of left third and right second toes. Hx of Present Illness Thank you very much for involving me in the care of this patient. As you very well know this is a 75-year-old female with a history of diabetes and dementia, dementia, seizure disorder, dyslipidemia who was brought into the emergency room with her daughter for worsening bilateral toe open wound and swelling. Patient reports significant pain. Patient apparently has caretakers who have not taking care of this situation sooner. Apparently, when patient presented to the emergency room, she had purulent drainage from the left third toe. Patient reports no fever, chills, nausea or vomiting. Constitutional: improved, no complaints Eyes: no complaints ENT: no complaints Respiratory: no complaints Cardiovascular: no complaints Gastrointestinal: no complaints Genitourinary: no complaints Past Medical History Medical History: diabetes, high cholesterol, hypertension Past Surgical History Past Surgical Hx: noncontributory Family History Significant Family History: no pertinent family hx Social History Alcohol Use: none Smoking Status: Never smoker Drug Use: none Exam/Review of Systems Vital Signs Vitals Vital Signs Date Time Temp Pulse Resp B/P Pulse Ox O2 Delivery O2 Flow Rate FiO2 06/12/16 21:02 98.2 84 19 137/60 97 Intake and Output 06/11/16 06/11/16 06/12/16 15:00 23:00 07:00 Intake Total 250 ml 1250 ml 900 ml Output Total 4 ml Balance 250 ml 1246 ml 900 ml Exam Patient is in no acute distress laying supine in bed. Left third toe ulcer present on the distal aspect; tender to palpation. Edema present with mild erythema. Right second toe is similar ulceration at the distal aspect. Edema present and tender to palpation. Palpable pulses but weak bilaterally. Sensation is decreased to sharp dull vibratory and temperature stimuli. Labs and imaging reviewed. Results Result Diagram: 06/12/16 0500 06/12/16 2130 Results 24 hrs Laboratory Tests Test 06/12/16 02:25 06/12/16 05:00 06/12/16 07:39 06/12/16 11:42 Bedside Glucose 212 234 H 256 H White Blood Count 4.2 L Red Blood Count 4.02 L Hemoglobin 11.9 L Hematocrit 35.8 L Mean Corpuscular Volume 89.1 Mean Corpuscular Hemoglobin 29.6 Mean Corpuscular Hemoglobin Concent 33.2 Red Cell Distribution Width 12.1 Platelet Count 206 Mean Platelet Volume 9.7 Neutrophils % 48.4 Lymphocytes % 40.4 Monocytes % 8.9 Eosinophils % 1.9 Basophils % 0.2 Nucleated Red Blood Cells % 0.0 Neutrophils # 2.0 Lymphocytes # 1.7 Monocytes # 0.4 Eosinophils # 0.1 Basophils # 0.0 Nucleated Red Blood Cells # 0.0 Sodium Level 137 Potassium Level 4.3 Chloride Level 101 Carbon Dioxide Level 28 Anion Gap 12 Blood Urea Nitrogen 14 Creatinine 0.62 Glucose Level 247 H Calcium Level 10.0 Test 06/12/16 16:49 06/12/16 20:52 06/12/16 21:30 06/12/16 21:41 Bedside Glucose 243 H 402 *H 306 H Glucose Level 311 H Medications Medications Current Medications Hydralazine HCl (Apresoline) 10 mg Q4H PRN IV ELEVATED BLOOD PRESSURE; Start at 23:00 Morphine Sulfate (morphine) 3 mg Q4H PRN IV PAIN; Start 06/10/16 at 23:00 Acetaminophen (Tylenol Tab) 650 mg Q6H PRN PO PAIN AND OR ELEVATED TEMP; Start 06/10/16 at 23:00 Ondansetron HCl (Zofran Inj) 4 mg Q6H PRN IV NAUSEA AND/OR VOMITING; Start at 23:00 Heparin Sodium (Porcine) 5000 unit 5,000 unit Q12 SC Last administered on 21:12; Admin Dose 5,000 UNIT; Start 06/11/16 at 09:00 Cefepime HCl (Maxipime 1gm/50 ml (Pmx)) 50 ml @ 100 mls/hr Q12 IVPB Last administered on 06/12/16 20:50; Admin Dose 100 MLS/HR; Start 06/11/16 at 09:00 Atorvastatin Calcium (Lipitor) 10 mg HS PO Last administered on 06/12/16 20:49 ; Admin Dose 10 MG; Start 06/11/16 at 21:00 Diagnostic Test (Pha) (Accu-Chek) 1 ea 02 XX Last administered on 06/12/16 02: 28; Admin Dose 1 EA; Start 06/11/16 at 02:00 Miscellaneous Information 1 ea NOTE XX ; Start 06/10/16 at 23:30 Glucose (Glutose) 15 gm Q15M PRN PO DECREASED GLUCOSE; Start 06/10/16 at 23:30 Glucose (Glutose) 22.5 gm Q15M PRN PO DECREASED GLUCOSE; Start 06/10/16 at 23: 30 Dextrose (D50w Syringe) 25 ml Q15M PRN IV DECREASED GLUCOSE; Start 06/10/16 at 23:30 Dextrose (D50w Syringe) 50 ml Q15M PRN IV DECREASED GLUCOSE; Start 06/10/16 at 23:30 Glucagon (Glucagen) 1 mg Q15M PRN IM DECREASED GLUCOSE; Start 06/10/16 at 23:30 Glucose 15 gm 15 gm Q15M PRN BUCCAL DECREASED GLUCOSE; Start 06/10/16 at 23:30 Vancomycin HCl/ Sodium Chloride (Vancocin/NS) 250 ml @ 83.333 mls/ hr Q24H IVPB Last administered on 06/12/16 08:21; Admin Dose 83.333 MLS/HR; Start at 08:00 Calcium/Vitamin D (Oyster Shell/ Vit-D (500/200)) 2 tab BID PO Last administered on 06/12/16 20:49; Admin Dose 2 TAB; Start 06/11/16 at 21:00 Gabapentin (Neurontin) 300 mg TID PO Last administered on 06/12/16 20:49; Admin Dose 300 MG; Start 06/11/16 at 21:00 Multivitamins Therapeutic (Theragran) 1 tab DAILY PO Last administered on 08:21; Admin Dose 1 TAB; Start 06/12/16 at 09:00 Phenytoin 100 mg 100 mg HS PO Last administered on 06/12/16 20:49; Admin Dose 100 MG; Start 06/11/16 at 21:00 Sodium Chloride (1/2 NS) 1,000 ml @ 75 mls/hr [id number] IV Last administered on 06/12/16 17:25; Admin Dose 75 MLS/HR; Start 06/11/16 at 16:00 Pantoprazole (Protonix Tab) 40 mg DAILY@06 PO Last administered on 06/12/16 05 :26; Admin Dose 40 MG; Start 06/12/16 at 06:00 Insulin Glargine (Lantus) 20 unit QHS SC Last administered on 06/12/16 21:50; Admin Dose 20 UNIT; Start 06/12/16 at 21:00 Benazepril HCl (Lotensin) 20 mg DAILY PO ; Start 06/13/16 at 09:00 Diphenhydramine HCl (Benadryl) 25 mg Q6H PRN PO ITCHING Last administered on 18:47; Admin Dose 25 MG; Start 06/12/16 at 17:30 Acetaminophen (Tylenol Tab) 650 mg DAILY PO ; Start 06/13/16 at 09:00 Diphenhydramine HCl (Benadryl) 25 mg DAILY PO ; Start 06/13/16 at 09:00 Tramadol HCl (Ultram) 50 mg Q6H PRN PO PAIN LEVEL 1-5; Start 06/12/16 at 18:30 HARI CHERRY DPM Jun 12, 2016 23:51
[2016-06-13] MEDS ORDERED: ACCU-CHEK XX SCH (02:00)
[2016-06-13] MEDS: ACCU-CHEK XX SCH (02:28)
[2016-06-13 05:57] LABS: ADD SCAN DIFF NO
[2016-06-13] MEDS: PANTOPRAZOLE (EC) 40 MG TAB PO SCH (05:57)
[2016-06-13 06:33] LABS: BASOPHILS % 0.2 % (0.0-2.0); EOSINOPHILS % 0.3 % (0.0-7.0); HEMOGLOBIN 12.2 g/dl (12.0-16.0); LYMPHOCYTES # 1.2 10^3/ul (0.8-2.9); LYMPHOCYTES % 19.8 % (15.0-51.0); MEAN CORPUSCULAR HEMOGLOBIN 30.2 pg (29.0-33.0); MEAN CORPUSCULAR HGB CONC 33.9 g/dl (32.0-37.0); MEAN CORPUSCULAR VOLUME 89.1 fl (82.0-101.0); MEAN PLATELET VOLUME 9.5 fl (7.4-10.4); MONOCYTE # 0.4 10^3/ul (0.3-0.9); MONOCYTES % 5.9 % (0.0-11.0); NEUTROPHIL # 4.5 10^3/ul (1.6-7.5); NEUTROPHILS % 73.6 % (39.0-77.0); PLATELET COUNT 215 10^3/UL (140-415); RED BLOOD COUNT 4.04 10^6/ul (4.20-5.40); WHITE BLOOD COUNT 6.1 10^3/ul (4.8-10.8)
[2016-06-13 06:46] LABS: CALCIUM 9.7 mg/dl (8.4-10.2); CREATININE 0.62 mg/dl (0.44-1.00); POTASSIUM 4.5 mmol/L (3.5-5.1)
[2016-06-13] MEDS: SOD CHLORIDE 0.45% 1,000 ML IV SCH ×2 (08:00→17:54)
[2016-06-13] MEDS: INSULIN ASPART [NOVOLOG] 3 ML PEN SC SCH ×8 (08:14→21:32)
--- NOTE | 2016-06-13 08:20 | CONS ---
Date/Time of Note Date/Time of Note DATE: 06/13/16 TIME: 08:16 Assessment/Plan Assessment/Plan Problems: (1) PAD (peripheral artery disease) (2) Urinary tract infection Status: Acute (3) Poorly controlled diabetes mellitus Status: Acute (4) Acute osteomyelitis of phalanx of foot Status: Acute Qualifiers: Qualified Code: M86.172 - Acute osteomyelitis of phalanx of foot, left Additional Assessment/Plan PAD CLI with ulcer in limb patient has dry wound at this time r/o osteo Abx pt will need leg angiogram during her treatment. Will need revascularization. will be arranged out pt. d/w patient in detail her daughter is giving and she wants to be home. If Podiatry is fine and pt has no osteo on MRI can be d/c with abx and plan for angio out pt will be arranged by my office. Consultation Date/Type/Reason Admit Date/Time Jun 10, 2016 at 20:31 Date of Consultation: Jun 13, 2016 Type of Consultation: Endovascular Interventionalist Reason for Consultation PAD Hx of Present Illness Patient is 75 year old F with PMH of HTN, HLD, DM, CAD, Arthristis, who came in to ER brought in by araseli with left second toe ulcer. dry, painful. r/o osteo on abx Constitutional: no complaints Eyes: no complaints Past Medical History Medical History: angina, coronary artery disease Social History Smoking Status: Never smoker Exam/Review of Systems Vital Signs Vitals Vital Signs Date Time Temp Pulse Resp B/P Pulse Ox O2 Delivery O2 Flow Rate FiO2 06/12/16 21:02 98.2 84 19 137/60 97 Intake and Output 06/12/16 06/12/16 06/13/16 15:00 23:00 07:00 Intake Total 300 ml 830 ml 675 ml Balance 300 ml 830 ml 675 ml Exam Constitutional: alert, oriented, well developed Head: normocephalic Eyes: nl conjunctiva ENMT: nl external ears & nose Neck: non-tender, supple Respiratory: clear to auscultation Cardiovascular: regular rate and rhythm Results Result Diagram: 06/13/16 0510 06/13/16 0540 Results 24 hrs Laboratory Tests Test 06/12/16 11:42 06/12/16 16:49 06/12/16 20:52 06/12/16 21:30 Bedside Glucose 256 H 243 H 402 *H Glucose Level 311 H Test 06/12/16 21:41 06/13/16 02:10 06/13/16 05:10 06/13/16 05:40 Bedside Glucose 306 H 139 White Blood Count 6.1 # Red Blood Count 4.04 L Hemoglobin 12.2 Hematocrit 36.0 L Mean Corpuscular Volume 89.1 Mean Corpuscular Hemoglobin 30.2 Mean Corpuscular Hemoglobin Concent 33.9 Red Cell Distribution Width 12.0 Platelet Count 215 Mean Platelet Volume 9.5 Neutrophils % 73.6 Lymphocytes % 19.8 Monocytes % 5.9 Eosinophils % 0.3 Basophils % 0.2 Nucleated Red Blood Cells % 0.0 Neutrophils # 4.5 Lymphocytes # 1.2 Monocytes # 0.4 Eosinophils # 0.0 Basophils # 0.0 Nucleated Red Blood Cells # 0.0 Sodium Level 139 Potassium Level 4.5 Chloride Level 101 Carbon Dioxide Level 29 Anion Gap 14 Blood Urea Nitrogen 15 Creatinine 0.62 Glucose Level 169 # Calcium Level 9.7 Test 06/13/16 07:43 Bedside Glucose 257 H Medications Medications Current Medications Hydralazine HCl (Apresoline) 10 mg Q4H PRN IV ELEVATED BLOOD PRESSURE; Start at 23:00 Morphine Sulfate (morphine) 3 mg Q4H PRN IV PAIN; Start 06/10/16 at 23:00 Acetaminophen (Tylenol Tab) 650 mg Q6H PRN PO PAIN AND OR ELEVATED TEMP; Start 06/10/16 at 23:00 Ondansetron HCl (Zofran Inj) 4 mg Q6H PRN IV NAUSEA AND/OR VOMITING; Start at 23:00 Heparin Sodium (Porcine) 5000 unit 5,000 unit Q12 SC Last administered on 21:12; Admin Dose 5,000 UNIT; Start 06/11/16 at 09:00 Cefepime HCl (Maxipime 1gm/50 ml (Pmx)) 50 ml @ 100 mls/hr Q12 IVPB Last administered on 06/12/16 20:50; Admin Dose 100 MLS/HR; Start 06/11/16 at 09:00 Atorvastatin Calcium (Lipitor) 10 mg HS PO Last administered on 06/12/16 20:49 ; Admin Dose 10 MG; Start 06/11/16 at 21:00 Diagnostic Test (Pha) (Accu-Chek) 1 ea 02 XX Last administered on 06/13/16 02: 28; Admin Dose 1 EA; Start 06/11/16 at 02:00 Miscellaneous Information 1 ea NOTE XX ; Start 06/10/16 at 23:30 Glucose (Glutose) 15 gm Q15M PRN PO DECREASED GLUCOSE; Start 06/10/16 at 23:30 Glucose (Glutose) 22.5 gm Q15M PRN PO DECREASED GLUCOSE; Start 06/10/16 at 23: 30 Dextrose (D50w Syringe) 25 ml Q15M PRN IV DECREASED GLUCOSE; Start 06/10/16 at 23:30 Dextrose (D50w Syringe) 50 ml Q15M PRN IV DECREASED GLUCOSE; Start 06/10/16 at 23:30 Glucagon (Glucagen) 1 mg Q15M PRN IM DECREASED GLUCOSE; Start 06/10/16 at 23:30 Glucose 15 gm 15 gm Q15M PRN BUCCAL DECREASED GLUCOSE; Start 06/10/16 at 23:30 Vancomycin HCl/ Sodium Chloride (Vancocin/NS) 250 ml @ 83.333 mls/ hr Q24H IVPB Last administered on 06/12/16 08:21; Admin Dose 83.333 MLS/HR; Start at 08:00 Calcium/Vitamin D (Oyster Shell/ Vit-D (500/200)) 2 tab BID PO Last administered on 06/12/16 20:49; Admin Dose 2 TAB; Start 06/11/16 at 21:00 Gabapentin (Neurontin) 300 mg TID PO Last administered on 06/12/16 20:49; Admin Dose 300 MG; Start 06/11/16 at 21:00 Multivitamins Therapeutic (Theragran) 1 tab DAILY PO Last administered on 08:21; Admin Dose 1 TAB; Start 06/12/16 at 09:00 Phenytoin 100 mg 100 mg HS PO Last administered on 06/12/16 20:49; Admin Dose 100 MG; Start 06/11/16 at 21:00 Sodium Chloride (1/2 NS) 1,000 ml @ 75 mls/hr [id number] IV Last administered on 06/12/16 17:25; Admin Dose 75 MLS/HR; Start 06/11/16 at 16:00 Pantoprazole (Protonix Tab) 40 mg DAILY@06 PO Last administered on 06/13/16 05 :57; Admin Dose 40 MG; Start 06/12/16 at 06:00 Benazepril HCl (Lotensin) 20 mg DAILY PO ; Start 06/13/16 at 09:00 Diphenhydramine HCl (Benadryl) 25 mg Q6H PRN PO ITCHING Last administered on 18:47; Admin Dose 25 MG; Start 06/12/16 at 17:30 Acetaminophen (Tylenol Tab) 650 mg DAILY PO ; Start 06/13/16 at 09:00 Diphenhydramine HCl (Benadryl) 25 mg DAILY PO ; Start 06/13/16 at 09:00 Tramadol HCl (Ultram) 50 mg Q6H PRN PO PAIN LEVEL 1-5; Start 06/12/16 at 18:30 Insulin Glargine (Lantus) 25 unit QHS SC ; Start 06/13/16 at 21:00 FLORINDA GOMEZ MD Jun 13, 2016 08:20
[2016-06-13] MEDS: DIPHENHYDRAMINE 25 MG CAP PO SCH (08:22)
[2016-06-13 08:23] VITALS: BP 121/56; RESP 16
[2016-06-13] MEDS: CALCIUM/VITAMIN D (500/200) TAB PO SCH ×2 (08:23→21:17)
[2016-06-13] MEDS: GABAPENTIN 300 MG CAP PO SCH ×3 (08:23→21:17)
[2016-06-13] MEDS: BENAZEPRIL 20 MG TAB PO SCH (08:24)
[2016-06-13] MEDS: MULTIVITAMINS THERAPEUTIC TAB PO SCH (08:25)
[2016-06-13] MEDS: CEFEPIME 1GM/50 ML (PMX) 50 ML IVPB SCH (08:25)
[2016-06-13] MEDS: VANCOMYCIN 1.5 GM in SOD CHLORIDE 0.9% 250 ML IVPB SCH (08:25)
[2016-06-13] MEDS: ACETAMINOPHEN 325 MG TAB PO SCH (08:25)
[2016-06-13] MEDS: HEPARIN 5,000 UNIT/0.5 ML VIAL SC SCH ×2 (08:34→21:29)
--- NOTE | 2016-06-13 09:49 | RADRPT ---
PROCEDURE: Bilateral lower extremity arterial ultrasound CLINICAL INDICATION: Lower extremity pain and claudication TECHNIQUE: Brody-scale and color images with doppler of the lower extremities were obtained COMPARISON: None available FINDINGS: Antegrade flow is noted in all visulaized arteries of the lower extremities. Monophasic wave forms a re identified in the bilateral posterior tibial and dorsalis pedis arteries. Biphasic and triphasic waveforms are seen in the remainder of the visualized arteries. Scattered calcified atherosclerosis is seen throughout both lower extremities. Rt POCKET CLOSER 71 cm/s Rt Profunda 81 cm/s Rt Prox SFA 64 cm/s Rt Mid SFA 77 cm/s Rt Dist SFA 50 cm/s Rt Aric 62 cm/s Rt Post Tibial 83 cm/s Rt Dorsalis Pedis 38 cm/s Rt BETHANIE not performed Lt POCKET CLOSER 82 cm/s Lt Profunda 75 cm/s Lt Prox SFA 85 cm/s Lt Mid SFA 81 cm/s Lt Dist SFA 53 cm/s Lt Aric 56 cm/s Lt Post Tibial 24 cm/s Lt Dorsalis Pedis 40 cm/s Lt BETHANIE not performed IMPRESSION: Monophasic waveforms in the bilateral posterior tibial and dorsalis pedis arteries, possibly indicat ing inflow disease into the lower legs. Scattered calcified atherosclerosis throughout both lower extremities. If further characterization of the arterial vasculature is needed CTA should be considered. RPTAT: AA .Johnny Reece MD, Date Time Electronically viewed and signed by .Johnny Reece MD, MD on 06/13/2016 09:48 .P/
--- NOTE | 2016-06-13 17:33 | PN ---
DATE: 06/13/2016 SUBJECTIVE: No acute changes. The patient is alert, sitting comfortably in bed. No fevers. WBC 6.1, no shift, no bands. BUN 15, creatinine 0.62. MICROBIOLOGY: Urine culture on admission grew E. coli. Left and right foot wound cultures growing preliminary Staphylococcus aureus. ANTIMICROBIALS: The patient is on: 1. IV vancomycin. 2. Cefepime. PHYSICAL EXAMINATION: GENERAL: Well-developed elderly woman who is alert, in no distress. HEENT: Head atraumatic, normocephalic. Sclerae anicteric. Buccal mucosa pink. NECK: Supple. Trachea midline. CHEST: Rise symmetrical. Breath sounds diminished to bases. HEART: S1, S2. ABDOMEN: Soft. Bowel tones present. EXTREMITIES: No cyanosis. The patient has necrotic wounds on her toes bilaterally. ASSESSMENT: 1. Bilateral foot cellulitis with questionable osteomyelitis of the left 2nd toe and right 3rd toe with wound cultures growing Staphylococcus aureus preliminary. 2. Urinary tract infection. 3. Diabetes. 4. Peripheral arterial disease. PLAN: The patient remains stable. She is being followed by Podiatry. Final cultures are pending. We are going to change cefepime to Rocephin. Continue vancomycin for now. Will discuss with Podia try if patient needs to be on long-term antibiotics for osteomyelitis. Dictated By: JOSELITO AGARWAL OYSTER CULTIVATOR for [facility] Conf#: [id number] DID#: [id number]
[2016-06-13] MEDS: CEFTRIAXONE 1 GM/50 ML (PMX) 50 ML IVPB SCH (17:55)
--- NOTE | 2016-06-13 18:35 | PN ---
Date/Time of Note Date/Time of Note DATE: 06/13/16 TIME: 18:25 Assessment/Plan VTE Prophylaxis VTE Prophylaxis Intervention: heparin Lines/Catheters [facility] Peripheral IV Urinary Cath still in place: No Assessment/Plan Chief Complaint/Hosp Course 1. Osteomyelitis of the right 3rd phalanx and left 2nd phalanx of the feet. cont on abx 2. Type 2 diabetes A1C 11.0: cont on insulin regimen and adjust as needed 3. Essential hypertension: provide with antihypertensives and adjust as needed 4. Chronic Seizure d/o. cont on dilantin 5. Dyslipidemia. on antihypertensives and adjust as needed 6. Ecoli UTI. cont on abx DISPO/PLAN: cont abx. Await podiatry input should need for further surgical intervention and for abx course. Discussed plan of care with Dr. Penn Problems: Subjective 24 Hr Interval Summary Free Text/Dictation comfortable at present. no s/s of distress Exam/Review of Systems Vital Signs Vitals Vital Signs Date Time Temp Pulse Resp B/P Pulse Ox O2 Delivery O2 Flow Rate FiO2 06/13/16 08:23 95.8 80 16 121/56 97 Intake and Output 06/12/16 06/12/16 06/13/16 15:00 23:00 07:00 Intake Total 300 ml 830 ml 675 ml Balance 300 ml 830 ml 675 ml Exam Constitutional: alert, oriented Psych: nl mood/affect Head: normocephalic Neck: non-tender, supple, No jvd Respiratory: clear to auscultation, normal air movement Cardiovascular: regular rate and rhythm Gastrointestinal: non-tender, soft Neurological: TRACING LATHE SET UP OPERATOR II-XII intact, nl mental status, nl speech Skin: other (wound RLE and LLE) Results Result Diagram: 06/13/16 0510 06/13/16 0540 Results 24 hrs Laboratory Tests Test 06/12/16 20:52 06/12/16 21:30 06/12/16 21:41 06/13/16 02:10 Bedside Glucose 402 *H 306 H 139 Glucose Level 311 H Test 06/13/16 05:10 06/13/16 05:40 06/13/16 07:43 06/13/16 12:08 White Blood Count 6.1 # Red Blood Count 4.04 L Hemoglobin 12.2 Hematocrit 36.0 L Mean Corpuscular Volume 89.1 Mean Corpuscular Hemoglobin 30.2 Mean Corpuscular Hemoglobin Concent 33.9 Red Cell Distribution Width 12.0 Platelet Count 215 Mean Platelet Volume 9.5 Neutrophils % 73.6 Lymphocytes % 19.8 Monocytes % 5.9 Eosinophils % 0.3 Basophils % 0.2 Nucleated Red Blood Cells % 0.0 Neutrophils # 4.5 Lymphocytes # 1.2 Monocytes # 0.4 Eosinophils # 0.0 Basophils # 0.0 Nucleated Red Blood Cells # 0.0 Sodium Level 139 Potassium Level 4.5 Chloride Level 101 Carbon Dioxide Level 29 Anion Gap 14 Blood Urea Nitrogen 15 Creatinine 0.62 Glucose Level 169 # Calcium Level 9.7 Bedside Glucose 257 H 266 H Test 06/13/16 17:31 Bedside Glucose 252 H Medications Medications Current Medications Hydralazine HCl (Apresoline) 10 mg Q4H PRN IV ELEVATED BLOOD PRESSURE; Start at 23:00 Morphine Sulfate (morphine) 3 mg Q4H PRN IV PAIN; Start 06/10/16 at 23:00 Acetaminophen (Tylenol Tab) 650 mg Q6H PRN PO PAIN AND OR ELEVATED TEMP; Start 06/10/16 at 23:00 Ondansetron HCl (Zofran Inj) 4 mg Q6H PRN IV NAUSEA AND/OR VOMITING; Start at 23:00 Heparin Sodium (Porcine) (Heparin (5000 Units/0.5 ml)) 5,000 unit Q12 SC Last administered on 06/13/16 08:34; Admin Dose 5,000 UNIT; Start 06/11/16 at 09:00 Atorvastatin Calcium (Lipitor) 10 mg HS PO Last administered on 06/12/16 20:49 ; Admin Dose 10 MG; Start 06/11/16 at 21:00 Diagnostic Test (Pha) (Accu-Chek) 1 ea 02 XX Last administered on 06/13/16 02: 28; Admin Dose 1 EA; Start 06/11/16 at 02:00 Miscellaneous Information 1 ea NOTE XX ; Start 06/10/16 at 23:30 Glucose (Glutose) 15 gm Q15M PRN PO DECREASED GLUCOSE; Start 06/10/16 at 23:30 Glucose (Glutose) 22.5 gm Q15M PRN PO DECREASED GLUCOSE; Start 06/10/16 at 23: 30 Dextrose (D50w Syringe) 25 ml Q15M PRN IV DECREASED GLUCOSE; Start 06/10/16 at 23:30 Dextrose (D50w Syringe) 50 ml Q15M PRN IV DECREASED GLUCOSE; Start 06/10/16 at 23:30 Glucagon (Glucagen) 1 mg Q15M PRN IM DECREASED GLUCOSE; Start 06/10/16 at 23:30 Glucose 15 gm 15 gm Q15M PRN BUCCAL DECREASED GLUCOSE; Start 06/10/16 at 23:30 Vancomycin HCl/ Sodium Chloride (Vancocin/NS) 250 ml @ 83.333 mls/ hr Q24H IVPB Last administered on 06/13/16 08:25; Admin Dose 83.333 MLS/HR; Start at 08:00 Calcium/Vitamin D (Oyster Shell/ Vit-D (500/200)) 2 tab BID PO Last administered on 06/13/16 08:23; Admin Dose 2 TAB; Start 06/11/16 at 21:00 Gabapentin (Neurontin) 300 mg TID PO Last administered on 06/13/16 12:11; Admin Dose 300 MG; Start 06/11/16 at 21:00 Multivitamins Therapeutic (Theragran) 1 tab DAILY PO Last administered on 08:25; Admin Dose 1 TAB; Start 06/12/16 at 09:00 Phenytoin 100 mg 100 mg HS PO Last administered on 06/12/16 20:49; Admin Dose 100 MG; Start 06/11/16 at 21:00 Sodium Chloride (1/2 NS) 1,000 ml @ 75 mls/hr [id number] IV Last administered on 06/13/16 17:54; Admin Dose 75 MLS/HR; Start 06/11/16 at 16:00 Pantoprazole (Protonix Tab) 40 mg DAILY@06 PO Last administered on 06/13/16 05 :57; Admin Dose 40 MG; Start 06/12/16 at 06:00 Benazepril HCl (Lotensin) 20 mg DAILY PO Last administered on 06/13/16 08:24; Admin Dose 20 MG; Start 06/13/16 at 09:00 Diphenhydramine HCl (Benadryl) 25 mg Q6H PRN PO ITCHING Last administered on 18:47; Admin Dose 25 MG; Start 06/12/16 at 17:30 Acetaminophen (Tylenol Tab) 650 mg DAILY PO Last administered on 06/13/16 08: 25; Admin Dose 650 MG; Start 06/13/16 at 09:00 Diphenhydramine HCl (Benadryl) 25 mg DAILY PO Last administered on 06/13/16 08 :22; Admin Dose 25 MG; Start 06/13/16 at 09:00 Tramadol HCl (Ultram) 50 mg Q6H PRN PO PAIN LEVEL 1-5; Start 06/12/16 at 18:30 Insulin Glargine (Lantus) 25 unit QHS SC ; Start 06/13/16 at 21:00 Miscellaneous Information VANCO TROUGH @ 0,700 ON... ONCE ONCE XX ; Start at 07:00; Stop 06/14/16 at 07:01 Ceftriaxone Sodium (Rocephin) 50 ml @ 100 mls/hr Q24H IVPB Last administered on 06/13/16 17:55; Admin Dose 100 MLS/HR; Start 06/13/16 at 17:30 ARCENIO SHELBY Jun 13, 2016 18:34
[2016-06-13 19:35] VITALS: BP 132/60; RESP 16
--- NOTE | 2016-06-13 20:54 | RADRPT ---
Echocardiogram Report Patient Name: CORNELIUS JONAS Gender: Female Date: 1940 Study Date: 13-Jun-2016 Licensed Pharmacist: Anila Grove [facility] Location: 623 Ref. Physician: MAXIMINO SAN Quality: Good Procedures: Transthoracic echocardiogram with complete 2D, M-Mode, and doppler examination. Indications: Pre-op. 2D/M Mode Doppler Measurement Value Normal Ranges Measurement Value Normal Ranges LVIDd 2D 3.8 3.5 - 5.6 cm AV Peak Carter 1.3 m/sec LVIDs 2D 1.9 2.1 - 4.1 cm AV Peak PG 7.0 mmHg FS 2D 49.6 % LVOT Peak Carter 0.9 m/sec LVPWd 2D 0.9 0.6 - 1.1 cm LVOT Peak PG 3.0 mmHg IVSd 2D 0.8 0.6 - 1.1 cm MV E Peak Carter 0.5 m/sec IVS/LVPW 2D 0.9 MV A Peak Carter 0.9 m/sec AoR Diam 2D 2.9 2.0 - 3.7 cm MV E/A 0.6 LA/Ao 2D 1 0 - 1 MV Decel Time 130 msec EDV 2D 57.1 cm3 MV E/A 0.6 ESV 2D 7.3 cm3 LA Dimen 2D 4.0 2.3 - 4.0 cm Findings Left Ventricle: Normal left ventricular systolic function. Normal left ventricular cavity size. Ejection fraction is visually estimated at 65 %. Tissue Doppler/Mitral Doppler indices are consistent with impaired relaxation (Stage I diastolic dysfunction). Right Ventricle: Normal right ventricular size. Normal right ventricular systolic function. Left Atrium: There is mild enlargement of left atrium. Right Atrium: The right atrium is normal in size. Mitral Valve: Normal appearance and function of the mitral valve with trace physiologic regurgitation. Aortic Valve: Normal appearance of the aortic valve. No significant aortic stenosis or insufficiency. Tricuspid Valve: Normal appearance of the tricuspid valve. Unable to obtain RVSP due to minimal presence of tricuspid regurgitation. Pulmonic Valve: Normal pulmonic valve appearance. No evidence of pulmonic regurgitation. Pericardium: Normal pericardium with no significant pericardial effusion. Aorta: Normal aortic root. IVC: Normal size and normal respiratory collapse consistent with normal right atrial pressure. Conclusions Normal left ventricular systolic function. Normal left ventricular cavity size. Ejection fraction is visually estimated at 65 %. Tissue Doppler/Mitral Doppler indices are consistent with impaired relaxation (Stage I diastolic dysfunction). Normal appearance and function of the mitral valve with trace physiologic regurgitation. Normal appearance of the aortic valve. No significant aortic stenosis or insufficiency. Normal appearance of the tricuspid valve. Unable to obtain RVSP due to minimal presence of tricuspid regurgitation. Electronically Signed By: Maximino San 13-Jun-2016 20:53:54 -0700 Patient Name: CORNELIUS JONAS Study Date: 13-Jun-[id number]
[2016-06-13] MEDS: PHENYTOIN 100 MG CAP PO SCH (21:17)
[2016-06-13] MEDS: ATORVASTATIN 10 MG TAB PO SCH (21:17)
[2016-06-13] MEDS: INSULIN GLARGINE [LANtus] 3 ML PEN SC SCH (21:21)
[2016-06-14] MEDS: ACCU-CHEK XX SCH (02:58)
[2016-06-14] MEDS: PANTOPRAZOLE (EC) 40 MG TAB PO SCH (05:41)
[2016-06-14] MEDS: traMADol 50 MG TAB PO PRN ×2 (05:41→20:57)
[2016-06-14 07:27] LABS: ADD SCAN DIFF NO
[2016-06-14 07:37] LABS: BASOPHILS % 0.2 % (0.0-2.0); EOSINOPHILS # 0.1 10^3/ul (0.0-0.5); EOSINOPHILS % 1.8 % (0.0-7.0); HEMATOCRIT 32.5 % (37.0-47.0); HEMOGLOBIN 11.1 g/dl (12.0-16.0); LYMPHOCYTES # 1.8 10^3/ul (0.8-2.9); LYMPHOCYTES % 40.3 % (15.0-51.0); MEAN CORPUSCULAR HEMOGLOBIN 30.7 pg (29.0-33.0); MEAN CORPUSCULAR HGB CONC 34.2 g/dl (32.0-37.0); MEAN CORPUSCULAR VOLUME 89.8 fl (82.0-101.0); MEAN PLATELET VOLUME 9.7 fl (7.4-10.4); MONOCYTE # 0.4 10^3/ul (0.3-0.9); MONOCYTES % 8.5 % (0.0-11.0); NEUTROPHIL # 2.1 10^3/ul (1.6-7.5); NEUTROPHILS % 48.7 % (39.0-77.0); PLATELET COUNT 202 10^3/UL (140-415); RED BLOOD COUNT 3.62 10^6/ul (4.20-5.40); RED CELL DISTRIBUTION WIDTH 12.1 % (11.5-14.5); WHITE BLOOD COUNT 4.4 10^3/ul (4.8-10.8)
[2016-06-14 07:39] VITALS: BP 133/60; RESP 19
[2016-06-14] MEDS: INSULIN ASPART [NOVOLOG] 3 ML PEN SC SCH ×8 (07:48→21:07)
[2016-06-14 07:49] LABS: POTASSIUM 4.1 mmol/L (3.5-5.1)
[2016-06-14 07:52] LABS: CREATININE 0.63 mg/dl (0.44-1.00)
[2016-06-14 07:53] LABS: CALCIUM 9.4 mg/dl (8.4-10.2)
[2016-06-14] MEDS: VANCOMYCIN 1.5 GM in SOD CHLORIDE 0.9% 250 ML IVPB SCH ×2 (08:00→10:00)
[2016-06-14] MEDS: GABAPENTIN 300 MG CAP PO SCH ×3 (09:03→20:57)
[2016-06-14] MEDS: ACETAMINOPHEN 325 MG TAB PO SCH (09:03)
[2016-06-14] MEDS: DIPHENHYDRAMINE 25 MG CAP PO SCH (09:03)
[2016-06-14] MEDS: MULTIVITAMINS THERAPEUTIC TAB PO SCH (09:03)
[2016-06-14] MEDS: SOD CHLORIDE 0.45% 1,000 ML IV SCH (09:04)
[2016-06-14] MEDS: CALCIUM/VITAMIN D (500/200) TAB PO SCH ×2 (09:04→20:57)
[2016-06-14] MEDS: BENAZEPRIL 20 MG TAB PO SCH (09:04)
[2016-06-14] MEDS: HEPARIN 5,000 UNIT/0.5 ML VIAL SC SCH ×2 (09:08→21:01)
--- NOTE | 2016-06-14 14:31 | PN ---
Date/Time of Note Date/Time of Note DATE: 06/14/16 TIME: 14:29 Assessment/Plan VTE Prophylaxis VTE Prophylaxis Intervention: heparin Lines/Catheters IV [facility]from [facility] Peripheral IV Urinary Cath still in place: No Assessment/Plan Assessment/Plan 1. Osteomyelitis of the right 3rd phalanx and left 2nd phalanx of the feet. cont on abx 2. Type 2 diabetes A1C 11.0: cont on insulin regimen and adjust as needed 3. Essential hypertension: provide with antihypertensives and adjust as needed 4. Chronic Seizure d/o. cont on dilantin 5. Dyslipidemia. on antihypertensives and adjust as needed 6. Ecoli UTI. cont on abx DISPO/PLAN: cont abx. Await podiatry input should need for further surgical intervention and for abx course. Subjective 24 Hr Interval Summary Free Text/Dictation c/o minimal pain on her toes with ulcer Exam/Review of Systems Vital Signs Vitals Vital Signs Date Time Temp Pulse Resp B/P Pulse Ox O2 Delivery O2 Flow Rate FiO2 06/14/16 07:39 98.1 77 19 133/60 96 Intake and Output 06/13/16 06/13/16 06/14/16 15:00 23:00 07:00 Intake Total 350 ml 1585 ml 1025 ml Balance 350 ml 1585 ml 1025 ml Exam GENERAL: The patient lying in bed, no acute distress, not fully oriented. She was sleepy, arousable with verbal commands. HEENT: No obvious head deformity. Pupils are reactive to light. Extraocular muscles intact. CARDIOVASCULAR: Regular rate and rhythm with no extra sounds. LUNGS: Clear anteriorly. ABDOMEN: Soft, nontender, nondistended. No grimaces noted on palpation. There are positive bowel sounds. EXTREMITIES: ulcer on the left 3rd toe/phalanx and also another ulcer on the right 2nd phalanx/toe. Results Result Diagram: 06/14/16 0645 06/14/16 0645 Results 24 hrs Laboratory Tests Test 06/13/16 17:31 06/13/16 21:16 06/14/16 02:11 06/14/16 06:45 Bedside Glucose 252 H 131 178 White Blood Count 4.4 #L Red Blood Count 3.62 L Hemoglobin 11.1 L Hematocrit 32.5 L Mean Corpuscular Volume 89.8 Mean Corpuscular Hemoglobin 30.7 Mean Corpuscular Hemoglobin Concent 34.2 Red Cell Distribution Width 12.1 Platelet Count 202 Mean Platelet Volume 9.7 Neutrophils % 48.7 Lymphocytes % 40.3 Monocytes % 8.5 Eosinophils % 1.8 Basophils % 0.2 Nucleated Red Blood Cells % 0.0 Neutrophils # 2.1 Lymphocytes # 1.8 Monocytes # 0.4 Eosinophils # 0.1 Basophils # 0.0 Nucleated Red Blood Cells # 0.0 Sodium Level 137 Potassium Level 4.1 Chloride Level 101 Carbon Dioxide Level 27 Anion Gap 13 Blood Urea Nitrogen 17 Creatinine 0.63 Glucose Level 199 Calcium Level 9.4 Vancomycin Level Trough 9.1 L Test 06/14/16 07:42 06/14/16 12:13 Bedside Glucose 182 272 H Medications Medications Current Medications Hydralazine HCl (Apresoline) 10 mg Q4H PRN IV ELEVATED BLOOD PRESSURE; Start at 23:00 Morphine Sulfate (morphine) 3 mg Q4H PRN IV PAIN; Start 06/10/16 at 23:00 Acetaminophen (Tylenol Tab) 650 mg Q6H PRN PO PAIN AND OR ELEVATED TEMP; Start 06/10/16 at 23:00 Ondansetron HCl (Zofran Inj) 4 mg Q6H PRN IV NAUSEA AND/OR VOMITING; Start at 23:00 Heparin Sodium (Porcine) (Heparin (5000 Units/0.5 ml)) 5,000 unit Q12 SC Last administered on 06/14/16 09:08; Admin Dose 5,000 UNIT; Start 06/11/16 at 09:00 Atorvastatin Calcium (Lipitor) 10 mg HS PO Last administered on 06/13/16 21:17 ; Admin Dose 10 MG; Start 06/11/16 at 21:00 Diagnostic Test (Pha) (Accu-Chek) 1 ea 02 XX Last administered on 06/14/16 02: 58; Admin Dose 1 EA; Start 06/11/16 at 02:00 Miscellaneous Information 1 ea NOTE XX ; Start 06/10/16 at 23:30 Glucose (Glutose) 15 gm Q15M PRN PO DECREASED GLUCOSE; Start 06/10/16 at 23:30 Glucose (Glutose) 22.5 gm Q15M PRN PO DECREASED GLUCOSE; Start 06/10/16 at 23: 30 Dextrose (D50w Syringe) 25 ml Q15M PRN IV DECREASED GLUCOSE; Start 06/10/16 at 23:30 Dextrose (D50w Syringe) 50 ml Q15M PRN IV DECREASED GLUCOSE; Start 06/10/16 at 23:30 Glucagon (Glucagen) 1 mg Q15M PRN IM DECREASED GLUCOSE; Start 06/10/16 at 23:30 Glucose (Glutose) 15 gm Q15M PRN BUCCAL DECREASED GLUCOSE; Start 06/10/16 at 23 :30 Calcium/Vitamin D (Oyster Shell/ Vit-D (500/200)) 2 tab BID PO Last administered on 06/14/16 09:04; Admin Dose 2 TAB; Start 06/11/16 at 21:00 Gabapentin (Neurontin) 300 mg TID PO Last administered on 06/14/16 12:29; Admin Dose 300 MG; Start 06/11/16 at 21:00 Multivitamins Therapeutic (Theragran) 1 tab DAILY PO Last administered on 09:03; Admin Dose 1 TAB; Start 06/12/16 at 09:00 Phenytoin 100 mg 100 mg HS PO Last administered on 06/13/16 21:17; Admin Dose 100 MG; Start 06/11/16 at 21:00 Sodium Chloride (1/2 NS) 1,000 ml @ 75 mls/hr [id number] IV Last administered on 06/14/16 09:04; Admin Dose 75 MLS/HR; Start 06/11/16 at 16:00 Pantoprazole (Protonix Tab) 40 mg DAILY@06 PO Last administered on 06/14/16 05 :41; Admin Dose 40 MG; Start 06/12/16 at 06:00 Benazepril HCl (Lotensin) 20 mg DAILY PO Last administered on 06/14/16 09:04; Admin Dose 20 MG; Start 06/13/16 at 09:00 Diphenhydramine HCl (Benadryl) 25 mg Q6H PRN PO ITCHING Last administered on 18:47; Admin Dose 25 MG; Start 06/12/16 at 17:30 Acetaminophen (Tylenol Tab) 650 mg DAILY PO Last administered on 06/14/16 09: 03; Admin Dose 650 MG; Start 06/13/16 at 09:00 Diphenhydramine HCl (Benadryl) 25 mg DAILY PO Last administered on 06/14/16 09 :03; Admin Dose 25 MG; Start 06/13/16 at 09:00 Tramadol HCl (Ultram) 50 mg Q6H PRN PO PAIN LEVEL 1-5 Last administered on 06/14 05:41; Admin Dose 50 MG; Start 06/12/16 at 18:30 Insulin Glargine 25 unit 25 unit QHS SC Last administered on 06/13/16 21:21; Admin Dose 25 UNIT; Start 06/13/16 at 21:00 Ceftriaxone Sodium 50 ml @ 100 mls/hr Q24H IVPB Last administered on 17:55; Admin Dose 100 MLS/HR; Start 06/13/16 at 17:30 Vancomycin HCl (Vancocin) 250 ml @ 125 mls/hr Q12H IVPB ; Start 06/15/16 at 02: 00 YANNICK WINSTON MD Jun 14, 2016 14:31
--- NOTE | 2016-06-14 15:08 | CONS ---
Date/Time of Note Date/Time of Note DATE: 06/14/16 TIME: 15:05 Assessment/Plan Assessment/Plan Chief Complaint/Hosp Course SUBJECTIVE: No acute changes. The patient is alert, no fevers. MICROBIOLOGY: Urine culture on admission grew E. coli. Left and right foot wound cultures growing MRSA. ANTIMICROBIALS: The patient is on: 1. IV vancomycin. 2. Rocephin PHYSICAL EXAMINATION: GENERAL: Well-developed elderly woman who is alert, in no distress. HEENT: Head atraumatic, normocephalic. Sclerae anicteric. Buccal mucosa pink. NECK: Supple. Trachea midline. CHEST: Rise symmetrical. Breath sounds diminished to bases. HEART: S1, S2. ABDOMEN: Soft. Bowel tones present. EXTREMITIES: No cyanosis. The patient has necrotic wounds on her toes bilaterally. ASSESSMENT: 1. Bilateral foot cellulitis with questionable osteomyelitis of the left 2nd toe and right 3rd toe with wound cultures growing Staphylococcus aureus preliminary. 2. Urinary tract infection. 3. Diabetes. 4. Peripheral arterial disease. PLAN: The patient remains stable. Continue abx, f/u vascular/podiatry rec-s. Patient will to be on long-term antibiotics if she has osteomyelitis. MARLEE RN Problems: Consultation Date/Type/Reason Admit Date/Time Jun 10, 2016 at 20:31 Initial Consult Date 06/13/16 Type of Consultation: id Exam/Review of Systems Vital Signs Vitals Vital Signs Date Time Temp Pulse Resp B/P Pulse Ox O2 Delivery O2 Flow Rate FiO2 06/14/16 07:39 98.1 77 19 133/60 96 Intake and Output 06/13/16 06/13/16 06/14/16 15:00 23:00 07:00 Intake Total 350 ml 1585 ml 1025 ml Balance 350 ml 1585 ml 1025 ml Results Result Diagram: 06/14/16 0645 06/14/16 0645 Results 24 hrs Laboratory Tests Test 06/13/16 17:31 06/13/16 21:16 06/14/16 02:11 06/14/16 06:45 Bedside Glucose 252 H 131 178 White Blood Count 4.4 #L Red Blood Count 3.62 L Hemoglobin 11.1 L Hematocrit 32.5 L Mean Corpuscular Volume 89.8 Mean Corpuscular Hemoglobin 30.7 Mean Corpuscular Hemoglobin Concent 34.2 Red Cell Distribution Width 12.1 Platelet Count 202 Mean Platelet Volume 9.7 Neutrophils % 48.7 Lymphocytes % 40.3 Monocytes % 8.5 Eosinophils % 1.8 Basophils % 0.2 Nucleated Red Blood Cells % 0.0 Neutrophils # 2.1 Lymphocytes # 1.8 Monocytes # 0.4 Eosinophils # 0.1 Basophils # 0.0 Nucleated Red Blood Cells # 0.0 Sodium Level 137 Potassium Level 4.1 Chloride Level 101 Carbon Dioxide Level 27 Anion Gap 13 Blood Urea Nitrogen 17 Creatinine 0.63 Glucose Level 199 Calcium Level 9.4 Vancomycin Level Trough 9.1 L Test 06/14/16 07:42 06/14/16 12:13 Bedside Glucose 182 272 H Medications Medications Current Medications Hydralazine HCl (Apresoline) 10 mg Q4H PRN IV ELEVATED BLOOD PRESSURE; Start at 23:00 Morphine Sulfate (morphine) 3 mg Q4H PRN IV PAIN; Start 06/10/16 at 23:00 Acetaminophen (Tylenol Tab) 650 mg Q6H PRN PO PAIN AND OR ELEVATED TEMP; Start 06/10/16 at 23:00 Ondansetron HCl (Zofran Inj) 4 mg Q6H PRN IV NAUSEA AND/OR VOMITING; Start at 23:00 Heparin Sodium (Porcine) (Heparin (5000 Units/0.5 ml)) 5,000 unit Q12 SC Last administered on 06/14/16 09:08; Admin Dose 5,000 UNIT; Start 06/11/16 at 09:00 Atorvastatin Calcium (Lipitor) 10 mg HS PO Last administered on 06/13/16 21:17 ; Admin Dose 10 MG; Start 06/11/16 at 21:00 Diagnostic Test (Pha) (Accu-Chek) 1 ea 02 XX Last administered on 06/14/16 02: 58; Admin Dose 1 EA; Start 06/11/16 at 02:00 Miscellaneous Information 1 ea NOTE XX ; Start 06/10/16 at 23:30 Glucose (Glutose) 15 gm Q15M PRN PO DECREASED GLUCOSE; Start 06/10/16 at 23:30 Glucose (Glutose) 22.5 gm Q15M PRN PO DECREASED GLUCOSE; Start 06/10/16 at 23: 30 Dextrose (D50w Syringe) 25 ml Q15M PRN IV DECREASED GLUCOSE; Start 06/10/16 at 23:30 Dextrose (D50w Syringe) 50 ml Q15M PRN IV DECREASED GLUCOSE; Start 06/10/16 at 23:30 Glucagon (Glucagen) 1 mg Q15M PRN IM DECREASED GLUCOSE; Start 06/10/16 at 23:30 Glucose (Glutose) 15 gm Q15M PRN BUCCAL DECREASED GLUCOSE; Start 06/10/16 at 23 :30 Calcium/Vitamin D (Oyster Shell/ Vit-D (500/200)) 2 tab BID PO Last administered on 06/14/16 09:04; Admin Dose 2 TAB; Start 06/11/16 at 21:00 Gabapentin (Neurontin) 300 mg TID PO Last administered on 06/14/16 12:29; Admin Dose 300 MG; Start 06/11/16 at 21:00 Multivitamins Therapeutic (Theragran) 1 tab DAILY PO Last administered on 09:03; Admin Dose 1 TAB; Start 06/12/16 at 09:00 Phenytoin 100 mg 100 mg HS PO Last administered on 06/13/16 21:17; Admin Dose 100 MG; Start 06/11/16 at 21:00 Sodium Chloride (1/2 NS) 1,000 ml @ 75 mls/hr [id number] IV Last administered on 06/14/16 09:04; Admin Dose 75 MLS/HR; Start 06/11/16 at 16:00 Pantoprazole (Protonix Tab) 40 mg DAILY@06 PO Last administered on 06/14/16 05 :41; Admin Dose 40 MG; Start 06/12/16 at 06:00 Benazepril HCl (Lotensin) 20 mg DAILY PO Last administered on 06/14/16 09:04; Admin Dose 20 MG; Start 06/13/16 at 09:00 Diphenhydramine HCl (Benadryl) 25 mg Q6H PRN PO ITCHING Last administered on 18:47; Admin Dose 25 MG; Start 06/12/16 at 17:30 Acetaminophen (Tylenol Tab) 650 mg DAILY PO Last administered on 06/14/16 09: 03; Admin Dose 650 MG; Start 06/13/16 at 09:00 Diphenhydramine HCl (Benadryl) 25 mg DAILY PO Last administered on 06/14/16 09 :03; Admin Dose 25 MG; Start 06/13/16 at 09:00 Tramadol HCl (Ultram) 50 mg Q6H PRN PO PAIN LEVEL 1-5 Last administered on 06/14 05:41; Admin Dose 50 MG; Start 06/12/16 at 18:30 Insulin Glargine 25 unit 25 unit QHS SC Last administered on 06/13/16 21:21; Admin Dose 25 UNIT; Start 06/13/16 at 21:00 Ceftriaxone Sodium 50 ml @ 100 mls/hr Q24H IVPB Last administered on 17:55; Admin Dose 100 MLS/HR; Start 06/13/16 at 17:30 Vancomycin HCl (Vancocin) 250 ml @ 125 mls/hr Q12H IVPB ; Start 06/15/16 at 02: 00 JOSELITO AGARWAL NP Jun 14, 2016 15:08
[2016-06-14] MEDS: CEFTRIAXONE 1 GM/50 ML (PMX) 50 ML IVPB SCH (17:40)
[2016-06-14 19:41] VITALS: BP 129/60; RESP 20
--- NOTE | 2016-06-14 20:22 | CONS ---
Date/Time of Note Date/Time of Note DATE: 06/14/16 TIME: 20:21 Consult Date/Type/Reason Admit Date/Time Jun 10, 2016 at 20:31 Initial Consult Date 06/13/16 Type of Consultation: Endovascular Intervention Objective Vital Signs Date Time Temp Pulse Resp B/P Pulse Ox O2 Delivery O2 Flow Rate FiO2 06/14/16 19:41 98.2 80 20 129/60 99 Intake and Output 06/13/16 06/13/16 06/14/16 15:00 23:00 07:00 Intake Total 350 ml 1585 ml 1025 ml Balance 350 ml 1585 ml 1025 ml Results/Medications Result Diagram: 06/14/16 0645 06/14/16 0645 Results 24 hrs Laboratory Tests Test 06/13/16 21:16 06/14/16 02:11 06/14/16 06:45 06/14/16 07:42 Bedside Glucose 131 178 182 White Blood Count 4.4 #L Red Blood Count 3.62 L Hemoglobin 11.1 L Hematocrit 32.5 L Mean Corpuscular Volume 89.8 Mean Corpuscular Hemoglobin 30.7 Mean Corpuscular Hemoglobin Concent 34.2 Red Cell Distribution Width 12.1 Platelet Count 202 Mean Platelet Volume 9.7 Neutrophils % 48.7 Lymphocytes % 40.3 Monocytes % 8.5 Eosinophils % 1.8 Basophils % 0.2 Nucleated Red Blood Cells % 0.0 Neutrophils # 2.1 Lymphocytes # 1.8 Monocytes # 0.4 Eosinophils # 0.1 Basophils # 0.0 Nucleated Red Blood Cells # 0.0 Sodium Level 137 Potassium Level 4.1 Chloride Level 101 Carbon Dioxide Level 27 Anion Gap 13 Blood Urea Nitrogen 17 Creatinine 0.63 Glucose Level 199 Calcium Level 9.4 Vancomycin Level Trough 9.1 L Test 06/14/16 12:13 06/14/16 17:31 Bedside Glucose 272 H 102 Medications Current Medications Hydralazine HCl (Apresoline) 10 mg Q4H PRN IV ELEVATED BLOOD PRESSURE; Start at 23:00 Morphine Sulfate (morphine) 3 mg Q4H PRN IV PAIN; Start 06/10/16 at 23:00 Acetaminophen (Tylenol Tab) 650 mg Q6H PRN PO PAIN AND OR ELEVATED TEMP; Start 06/10/16 at 23:00 Ondansetron HCl (Zofran Inj) 4 mg Q6H PRN IV NAUSEA AND/OR VOMITING; Start at 23:00 Heparin Sodium (Porcine) (Heparin (5000 Units/0.5 ml)) 5,000 unit Q12 SC Last administered on 06/14/16 09:08; Admin Dose 5,000 UNIT; Start 06/11/16 at 09:00 Atorvastatin Calcium (Lipitor) 10 mg HS PO Last administered on 06/13/16 21:17 ; Admin Dose 10 MG; Start 06/11/16 at 21:00 Diagnostic Test (Pha) (Accu-Chek) 1 ea 02 XX Last administered on 06/14/16 02: 58; Admin Dose 1 EA; Start 06/11/16 at 02:00 Miscellaneous Information 1 ea NOTE XX ; Start 06/10/16 at 23:30 Glucose (Glutose) 15 gm Q15M PRN PO DECREASED GLUCOSE; Start 06/10/16 at 23:30 Glucose (Glutose) 22.5 gm Q15M PRN PO DECREASED GLUCOSE; Start 06/10/16 at 23: 30 Dextrose (D50w Syringe) 25 ml Q15M PRN IV DECREASED GLUCOSE; Start 06/10/16 at 23:30 Dextrose (D50w Syringe) 50 ml Q15M PRN IV DECREASED GLUCOSE; Start 06/10/16 at 23:30 Glucagon (Glucagen) 1 mg Q15M PRN IM DECREASED GLUCOSE; Start 06/10/16 at 23:30 Glucose (Glutose) 15 gm Q15M PRN BUCCAL DECREASED GLUCOSE; Start 06/10/16 at 23 :30 Calcium/Vitamin D (Oyster Shell/ Vit-D (500/200)) 2 tab BID PO Last administered on 06/14/16 09:04; Admin Dose 2 TAB; Start 06/11/16 at 21:00 Gabapentin (Neurontin) 300 mg TID PO Last administered on 06/14/16 12:29; Admin Dose 300 MG; Start 06/11/16 at 21:00 Multivitamins Therapeutic (Theragran) 1 tab DAILY PO Last administered on 09:03; Admin Dose 1 TAB; Start 06/12/16 at 09:00 Phenytoin 100 mg 100 mg HS PO Last administered on 06/13/16 21:17; Admin Dose 100 MG; Start 06/11/16 at 21:00 Sodium Chloride (1/2 NS) 1,000 ml @ 75 mls/hr [id number] IV Last administered on 06/14/16 09:04; Admin Dose 75 MLS/HR; Start 06/11/16 at 16:00 Pantoprazole (Protonix Tab) 40 mg DAILY@06 PO Last administered on 06/14/16 05 :41; Admin Dose 40 MG; Start 06/12/16 at 06:00 Benazepril HCl (Lotensin) 20 mg DAILY PO Last administered on 06/14/16 09:04; Admin Dose 20 MG; Start 06/13/16 at 09:00 Diphenhydramine HCl (Benadryl) 25 mg Q6H PRN PO ITCHING Last administered on 18:47; Admin Dose 25 MG; Start 06/12/16 at 17:30 Acetaminophen (Tylenol Tab) 650 mg DAILY PO Last administered on 06/14/16 09: 03; Admin Dose 650 MG; Start 06/13/16 at 09:00 Diphenhydramine HCl (Benadryl) 25 mg DAILY PO Last administered on 06/14/16 09 :03; Admin Dose 25 MG; Start 06/13/16 at 09:00 Tramadol HCl (Ultram) 50 mg Q6H PRN PO PAIN LEVEL 1-5 Last administered on 06/14 05:41; Admin Dose 50 MG; Start 06/12/16 at 18:30 Insulin Glargine 25 unit 25 unit QHS SC Last administered on 06/13/16 21:21; Admin Dose 25 UNIT; Start 06/13/16 at 21:00 Ceftriaxone Sodium 50 ml @ 100 mls/hr Q24H IVPB Last administered on 17:40; Admin Dose 100 MLS/HR; Start 06/13/16 at 17:30 Vancomycin HCl (Vancocin) 250 ml @ 125 mls/hr Q12H IVPB ; Start 06/15/16 at 02: 00 Assessment/Plan Chief Complaint/Hosp Course Patient is 75 year old F with PMH of HTN, HLD, DM, CAD, Arthristis, who came in to ER brought in by araseli with left second toe ulcer. dry, painful. r/o osteo on abx Problems: Additional Assessment/Plan Pt with PAD osteo abx plan for out pt angiogram of her leg. d/w family will /fu d/w podiatry FLORINDA GOMEZ MD Jun 14, 2016 20:22
[2016-06-14] MEDS: PHENYTOIN 100 MG CAP PO SCH (20:57)
[2016-06-14] MEDS: ATORVASTATIN 10 MG TAB PO SCH (20:57)
[2016-06-14] MEDS: INSULIN GLARGINE [LANtus] 3 ML PEN SC SCH (21:01)
[2016-06-15] MEDS: ACCU-CHEK XX SCH (02:10)
[2016-06-15] MEDS: VANCOMYCIN 1 GM in NS 250 ML IVPB SCH ×2 (02:12→14:56)
[2016-06-15] MEDS: PANTOPRAZOLE (EC) 40 MG TAB PO SCH (05:41)
[2016-06-15 06:23] LABS: ADD SCAN DIFF NO
[2016-06-15 06:38] LABS: CALCIUM 9.8 mg/dl (8.4-10.2); CREATININE 0.57 mg/dl (0.44-1.00); POTASSIUM 4.3 mmol/L (3.5-5.1)
[2016-06-15 06:41] LABS: BASOPHILS % 0.8 % (0.0-2.0); EOSINOPHILS # 0.1 10^3/ul (0.0-0.5); EOSINOPHILS % 1.8 % (0.0-7.0); HEMATOCRIT 35.8 % (37.0-47.0); HEMOGLOBIN 11.8 g/dl (12.0-16.0); MEAN CORPUSCULAR HEMOGLOBIN 29.9 pg (29.0-33.0); MEAN CORPUSCULAR VOLUME 90.6 fl (82.0-101.0); MEAN PLATELET VOLUME 9.5 fl (7.4-10.4); MONOCYTE # 0.3 10^3/ul (0.3-0.9); MONOCYTES % 7.5 % (0.0-11.0); NEUTROPHIL # 1.6 10^3/ul (1.6-7.5); NEUTROPHILS % 40.6 % (39.0-77.0); PLATELET COUNT 198 10^3/UL (140-415); RED BLOOD COUNT 3.95 10^6/ul (4.20-5.40); RED CELL DISTRIBUTION WIDTH 12.4 % (11.5-14.5)
[2016-06-15] MEDS: SOD CHLORIDE 0.45% 1,000 ML IV SCH ×3 (06:59→13:20)
[2016-06-15 07:38] VITALS: BP 126/58; RESP 16
[2016-06-15] MEDS: INSULIN ASPART [NOVOLOG] 3 ML PEN SC SCH ×8 (08:15→21:36)
[2016-06-15] MEDS: GABAPENTIN 300 MG CAP PO SCH ×3 (08:30→20:56)
[2016-06-15] MEDS: DIPHENHYDRAMINE 25 MG CAP PO SCH (08:30)
[2016-06-15] MEDS: MULTIVITAMINS THERAPEUTIC TAB PO SCH (08:30)
[2016-06-15] MEDS: CALCIUM/VITAMIN D (500/200) TAB PO SCH ×2 (08:30→20:56)
[2016-06-15] MEDS: ACETAMINOPHEN 325 MG TAB PO SCH (08:30)
[2016-06-15] MEDS: BENAZEPRIL 20 MG TAB PO SCH (08:30)
[2016-06-15] MEDS: HEPARIN 5,000 UNIT/0.5 ML VIAL SC SCH ×2 (08:38→20:58)
--- NOTE | 2016-06-15 13:40 | PN ---
Date/Time of Note Date/Time of Note DATE: 06/15/16 TIME: 13:38 Assessment/Plan VTE Prophylaxis VTE Prophylaxis Intervention: heparin Lines/Catheters IV C[facility]ter Type [facility]from [facility] Peripheral IV Urinary Cath still in place: No Assessment/Plan Chief Complaint/Hosp Course Assessment/Plan 1. Osteomyelitis of the right 3rd phalanx and left 2nd phalanx of the feet. cont on abx IV, f/u ID and podiatry rec's. 2. Type 2 diabetes A1C 11.0: cont on insulin regimen and adjust as needed 3. Essential hypertension: provide with antihypertensives and adjust as needed 4. Chronic Seizure d/o. cont on dilantin 5. Dyslipidemia. on antihypertensives and adjust as needed 6. Ecoli UTI. cont on abx DISPO/PLAN: cont abx. Await podiatry input should need for further surgical intervention and for abx course. Problems: Subjective 24 Hr Interval Summary Free Text/Dictation No acute events overnight. Per nursing, able to ambulate today. Exam/Review of Systems Vital Signs Vitals Vital Signs Date Time Temp Pulse Resp B/P Pulse Ox O2 Delivery O2 Flow Rate FiO2 06/15/16 07:38 98.0 71 16 126/58 97 Intake and Output 06/14/16 06/14/16 06/15/16 15:00 23:00 07:00 Intake Total 1010 ml 1315 ml Balance 1010 ml 1315 ml Exam GENERAL: The patient lying in bed, no acute distress, not fully oriented. She was sleepy, arousable with verbal commands. HEENT: No obvious head deformity. Pupils are reactive to light. Extraocular muscles intact. CARDIOVASCULAR: Regular rate and rhythm with no extra sounds. LUNGS: Clear anteriorly. ABDOMEN: Soft, nontender, nondistended. No grimaces noted on palpation. There are positive bowel sounds. EXTREMITIES: ulcer on the left 3rd toe/phalanx and also another ulcer on the right 2nd phalanx/toe. Results Result Diagram: 06/15/16 0601 06/15/16 0611 Results 24 hrs Laboratory Tests Test 06/14/16 17:31 06/14/16 20:55 06/15/16 02:10 06/15/16 06:01 Bedside Glucose 102 166 130 White Blood Count 4.0 L Red Blood Count 3.95 L Hemoglobin 11.8 L Hematocrit 35.8 L Mean Corpuscular Volume 90.6 Mean Corpuscular Hemoglobin 29.9 Mean Corpuscular Hemoglobin Concent 33.0 Red Cell Distribution Width 12.4 Platelet Count 198 Mean Platelet Volume 9.5 Neutrophils % 40.6 Lymphocytes % 49.0 Monocytes % 7.5 Eosinophils % 1.8 Basophils % 0.8 Nucleated Red Blood Cells % 0.0 Neutrophils # 1.6 Lymphocytes # 2.0 Monocytes # 0.3 Eosinophils # 0.1 Basophils # 0.0 Nucleated Red Blood Cells # 0.0 Test 06/15/16 06:11 06/15/16 08:12 06/15/16 12:10 Sodium Level 137 Potassium Level 4.3 Chloride Level 104 Carbon Dioxide Level 28 Anion Gap 9 Blood Urea Nitrogen 17 Creatinine 0.57 Glucose Level 129 # Calcium Level 9.8 Bedside Glucose 134 202 Medications Medications Current Medications Hydralazine HCl (Apresoline) 10 mg Q4H PRN IV ELEVATED BLOOD PRESSURE; Start at 23:00 Morphine Sulfate (morphine) 3 mg Q4H PRN IV PAIN; Start 06/10/16 at 23:00 Acetaminophen (Tylenol Tab) 650 mg Q6H PRN PO PAIN AND OR ELEVATED TEMP; Start 06/10/16 at 23:00 Ondansetron HCl (Zofran Inj) 4 mg Q6H PRN IV NAUSEA AND/OR VOMITING; Start at 23:00 Heparin Sodium (Porcine) (Heparin (5000 Units/0.5 ml)) 5,000 unit Q12 SC Last administered on 06/15/16 08:38; Admin Dose 5,000 UNIT; Start 06/11/16 at 09:00 Atorvastatin Calcium (Lipitor) 10 mg HS PO Last administered on 06/14/16 20:57 ; Admin Dose 10 MG; Start 06/11/16 at 21:00 Diagnostic Test (Pha) (Accu-Chek) 1 ea 02 XX Last administered on 06/15/16 02: 10; Admin Dose 1 EA; Start 06/11/16 at 02:00 Miscellaneous Information 1 ea NOTE XX ; Start 06/10/16 at 23:30 Glucose (Glutose) 15 gm Q15M PRN PO DECREASED GLUCOSE; Start 06/10/16 at 23:30 Glucose (Glutose) 22.5 gm Q15M PRN PO DECREASED GLUCOSE; Start 06/10/16 at 23: 30 Dextrose (D50w Syringe) 25 ml Q15M PRN IV DECREASED GLUCOSE; Start 06/10/16 at 23:30 Dextrose (D50w Syringe) 50 ml Q15M PRN IV DECREASED GLUCOSE; Start 06/10/16 at 23:30 Glucagon (Glucagen) 1 mg Q15M PRN IM DECREASED GLUCOSE; Start 06/10/16 at 23:30 Glucose (Glutose) 15 gm Q15M PRN BUCCAL DECREASED GLUCOSE; Start 06/10/16 at 23 :30 Calcium/Vitamin D (Oyster Shell/ Vit-D (500/200)) 2 tab BID PO Last administered on 06/15/16 08:30; Admin Dose 2 TAB; Start 06/11/16 at 21:00 Gabapentin (Neurontin) 300 mg TID PO Last administered on 06/15/16 08:30; Admin Dose 300 MG; Start 06/11/16 at 21:00 Multivitamins Therapeutic (Theragran) 1 tab DAILY PO Last administered on 08:30; Admin Dose 1 TAB; Start 06/12/16 at 09:00 Phenytoin 100 mg 100 mg HS PO Last administered on 06/14/16 20:57; Admin Dose 100 MG; Start 06/11/16 at 21:00 Sodium Chloride (1/2 NS) 1,000 ml @ 75 mls/hr [id number] IV Last administered on 06/15/16 06:59; Admin Dose 75 MLS/HR; Start 06/11/16 at 16:00 Pantoprazole (Protonix Tab) 40 mg DAILY@06 PO Last administered on 06/15/16 05 :41; Admin Dose 40 MG; Start 06/12/16 at 06:00 Benazepril HCl (Lotensin) 20 mg DAILY PO Last administered on 06/15/16 08:30; Admin Dose 20 MG; Start 06/13/16 at 09:00 Diphenhydramine HCl (Benadryl) 25 mg Q6H PRN PO ITCHING Last administered on 18:47; Admin Dose 25 MG; Start 06/12/16 at 17:30 Acetaminophen (Tylenol Tab) 650 mg DAILY PO Last administered on 06/15/16 08: 30; Admin Dose 650 MG; Start 06/13/16 at 09:00 Diphenhydramine HCl (Benadryl) 25 mg DAILY PO Last administered on 06/15/16 08 :30; Admin Dose 25 MG; Start 06/13/16 at 09:00 Tramadol HCl (Ultram) 50 mg Q6H PRN PO PAIN LEVEL 1-5 Last administered on 06/14 20:57; Admin Dose 50 MG; Start 06/12/16 at 18:30 Insulin Glargine 25 unit 25 unit QHS SC Last administered on 06/14/16 21:01; Admin Dose 25 UNIT; Start 06/13/16 at 21:00 Ceftriaxone Sodium 50 ml @ 100 mls/hr Q24H IVPB Last administered on 17:40; Admin Dose 100 MLS/HR; Start 06/13/16 at 17:30 Vancomycin HCl (Vancocin) 250 ml @ 125 mls/hr Q12H IVPB Last administered on 02:12; Admin Dose 125 MLS/HR; Start 06/15/16 at 02:00 Miscellaneous Information (*Rx Drug Level Order Reminder*) VANCOMYCIN TROUGH LEVEL... ONCE ONCE XX ; Start 06/16/16 at 13:00; Stop 06/16/16 at 13:01 REBECA FARLEY Jun 15, 2016 13:40
--- NOTE | 2016-06-15 15:12 | PN ---
DATE: 06/15/2016 INFECTIOUS DISEASE PROGRESS NOTE SUBJECTIVE: No events overnight. The patient is awake, looks comfortable, denies pain, no fevers. WBC 4, no shift, no bands. BUN 17, creatinine 0.57. MICROBIOLOGY: Wound culture growing MRSA. ANTIMICROBIALS: The patient is on: 1. Vancomycin. 2. Rocephin. PHYSICAL EXAMINATION: GENERAL: Well-developed, elderly woman who is alert, in no distress. HEENT: Head atraumatic, normocephalic. Sclerae anicteric. Buccal mucosa pink. NECK: Supple. CHEST: Rise symmetrical. Breath sounds diminished to bases. HEART: S1, S2. ABDOMEN: Soft, bowel tones present. EXTREMITIES: Bilateral gangrenous toes. ASSESSMENT: 1. Bilateral foot cellulitis with questionable osteomyelitis of left 2nd and right third toe, wound cultures growing methicillin-resistant Staphylococcus aureus. 2. Status post urinary tract infection. 3. Peripheral vascular disease. 4. Diabetes. PLAN: The patient remains stable. We are going to continue her on current antimicrobials. Possibl e angiogram per vascular team. Follow podiatry recommendations. If the patient has osteomyelitis s he will need to be on IV vancomycin for 6 weeks. Dictated By: JOSELITO AGARWAL [employer] O[employer]ATOR for [employer] Conf#: [id number] DID#: [id number]
[2016-06-15] MEDS: CEFTRIAXONE 1 GM/50 ML (PMX) 50 ML IVPB SCH (17:33)
--- NOTE | 2016-06-15 18:53 | CONS ---
Date/Time of Note Date/Time of Note DATE: 06/15/16 TIME: 18:51 Consult Date/Type/Reason Admit Date/Time Jun 10, 2016 at 20:31 Initial Consult Date 06/13/16 Type of Consultation: Endovascular Intervention Objective Vital Signs Date Time Temp Pulse Resp B/P Pulse Ox O2 Delivery O2 Flow Rate FiO2 06/15/16 07:38 98.0 71 16 126/58 97 Intake and Output 06/14/16 06/14/16 06/15/16 15:00 23:00 07:00 Intake Total 1010 ml 1315 ml Balance 1010 ml 1315 ml Results/Medications Result Diagram: 06/15/16 0601 06/15/16 0611 Results 24 hrs Laboratory Tests Test 06/14/16 20:55 06/15/16 02:10 06/15/16 06:01 06/15/16 06:11 Bedside Glucose 166 130 White Blood Count 4.0 L Red Blood Count 3.95 L Hemoglobin 11.8 L Hematocrit 35.8 L Mean Corpuscular Volume 90.6 Mean Corpuscular Hemoglobin 29.9 Mean Corpuscular Hemoglobin Concent 33.0 Red Cell Distribution Width 12.4 Platelet Count 198 Mean Platelet Volume 9.5 Neutrophils % 40.6 Lymphocytes % 49.0 Monocytes % 7.5 Eosinophils % 1.8 Basophils % 0.8 Nucleated Red Blood Cells % 0.0 Neutrophils # 1.6 Lymphocytes # 2.0 Monocytes # 0.3 Eosinophils # 0.1 Basophils # 0.0 Nucleated Red Blood Cells # 0.0 Sodium Level 137 Potassium Level 4.3 Chloride Level 104 Carbon Dioxide Level 28 Anion Gap 9 Blood Urea Nitrogen 17 Creatinine 0.57 Glucose Level 129 # Calcium Level 9.8 Test 06/15/16 08:12 06/15/16 12:10 06/15/16 17:11 Bedside Glucose 134 202 136 Medications Current Medications Hydralazine HCl (Apresoline) 10 mg Q4H PRN IV ELEVATED BLOOD PRESSURE; Start at 23:00 Morphine Sulfate (morphine) 3 mg Q4H PRN IV PAIN; Start 06/10/16 at 23:00 Acetaminophen (Tylenol Tab) 650 mg Q6H PRN PO PAIN AND OR ELEVATED TEMP; Start 06/10/16 at 23:00 Ondansetron HCl (Zofran Inj) 4 mg Q6H PRN IV NAUSEA AND/OR VOMITING; Start at 23:00 Heparin Sodium (Porcine) (Heparin (5000 Units/0.5 ml)) 5,000 unit Q12 SC Last administered on 06/15/16 08:38; Admin Dose 5,000 UNIT; Start 06/11/16 at 09:00 Atorvastatin Calcium (Lipitor) 10 mg HS PO Last administered on 06/14/16 20:57 ; Admin Dose 10 MG; Start 06/11/16 at 21:00 Diagnostic Test (Pha) (Accu-Chek) 1 ea 02 XX Last administered on 06/15/16 02: 10; Admin Dose 1 EA; Start 06/11/16 at 02:00 Miscellaneous Information 1 ea NOTE XX ; Start 06/10/16 at 23:30 Glucose (Glutose) 15 gm Q15M PRN PO DECREASED GLUCOSE; Start 06/10/16 at 23:30 Glucose (Glutose) 22.5 gm Q15M PRN PO DECREASED GLUCOSE; Start 06/10/16 at 23: 30 Dextrose (D50w Syringe) 25 ml Q15M PRN IV DECREASED GLUCOSE; Start 06/10/16 at 23:30 Dextrose (D50w Syringe) 50 ml Q15M PRN IV DECREASED GLUCOSE; Start 06/10/16 at 23:30 Glucagon (Glucagen) 1 mg Q15M PRN IM DECREASED GLUCOSE; Start 06/10/16 at 23:30 Glucose (Glutose) 15 gm Q15M PRN BUCCAL DECREASED GLUCOSE; Start 06/10/16 at 23 :30 Calcium/Vitamin D (Oyster Shell/ Vit-D (500/200)) 2 tab BID PO Last administered on 06/15/16 08:30; Admin Dose 2 TAB; Start 06/11/16 at 21:00 Gabapentin (Neurontin) 300 mg TID PO Last administered on 06/15/16 14:56; Admin Dose 300 MG; Start 06/11/16 at 21:00 Multivitamins Therapeutic (Theragran) 1 tab DAILY PO Last administered on 08:30; Admin Dose 1 TAB; Start 06/12/16 at 09:00 Phenytoin 100 mg 100 mg HS PO Last administered on 06/14/16 20:57; Admin Dose 100 MG; Start 06/11/16 at 21:00 Sodium Chloride (1/2 NS) 1,000 ml @ 75 mls/hr [id number] IV Last administered on 06/15/16 06:59; Admin Dose 75 MLS/HR; Start 06/11/16 at 16:00 Pantoprazole (Protonix Tab) 40 mg DAILY@06 PO Last administered on 06/15/16 05 :41; Admin Dose 40 MG; Start 06/12/16 at 06:00 Benazepril HCl (Lotensin) 20 mg DAILY PO Last administered on 06/15/16 08:30; Admin Dose 20 MG; Start 06/13/16 at 09:00 Diphenhydramine HCl (Benadryl) 25 mg Q6H PRN PO ITCHING Last administered on 18:47; Admin Dose 25 MG; Start 06/12/16 at 17:30 Acetaminophen (Tylenol Tab) 650 mg DAILY PO Last administered on 06/15/16 08: 30; Admin Dose 650 MG; Start 06/13/16 at 09:00 Diphenhydramine HCl (Benadryl) 25 mg DAILY PO Last administered on 06/15/16 08 :30; Admin Dose 25 MG; Start 06/13/16 at 09:00 Tramadol HCl (Ultram) 50 mg Q6H PRN PO PAIN LEVEL 1-5 Last administered on 06/14 20:57; Admin Dose 50 MG; Start 06/12/16 at 18:30 Insulin Glargine 25 unit 25 unit QHS SC Last administered on 06/14/16 21:01; Admin Dose 25 UNIT; Start 06/13/16 at 21:00 Ceftriaxone Sodium 50 ml @ 100 mls/hr Q24H IVPB Last administered on 17:33; Admin Dose 100 MLS/HR; Start 06/13/16 at 17:30 Vancomycin HCl (Vancocin) 250 ml @ 125 mls/hr Q12H IVPB Last administered on 14:56; Admin Dose 125 MLS/HR; Start 06/15/16 at 02:00 Miscellaneous Information (*Rx Drug Level Order Reminder*) VANCOMYCIN TROUGH LEVEL... ONCE ONCE XX ; Start 06/16/16 at 13:00; Stop 06/16/16 at 13:01 Assessment/Plan Chief Complaint/Hosp Course Patient is 75 year old F with PMH of HTN, HLD, DM, CAD, Arthristis, who came in to ER brought in by araseli with left second toe ulcer. dry, painful. r/o osteo on abx Problems: Additional Assessment/Plan PAD Likely osteo but pt clinically looks fine pt will need abx out pt leg angio will be scheduled pt can be d/c home unless there is a procedure schedule by podiatry. will /.FLORINDA Krause MD Jun 15, 2016 18:53
[2016-06-15 19:43] VITALS: BP 139/89; RESP 20
[2016-06-15] MEDS: PHENYTOIN 100 MG CAP PO SCH (20:56)
[2016-06-15] MEDS: ATORVASTATIN 10 MG TAB PO SCH (20:56)
[2016-06-15] MEDS: INSULIN GLARGINE [LANtus] 3 ML PEN SC SCH (20:59)
[2016-06-16] MEDS: VANCOMYCIN 1 GM in NS 250 ML IVPB SCH ×2 (01:59→15:35)
[2016-06-16] MEDS: ACCU-CHEK XX SCH (02:01)
[2016-06-16] MEDS: SOD CHLORIDE 0.45% 1,000 ML IV SCH ×3 (03:38→20:52)
[2016-06-16 05:24] LABS: ADD SCAN DIFF NO
[2016-06-16 05:35] LABS: BASOPHILS % 0.5 % (0.0-2.0); EOSINOPHILS # 0.1 10^3/ul (0.0-0.5); EOSINOPHILS % 2.2 % (0.0-7.0); HEMATOCRIT 33.4 % (37.0-47.0); HEMOGLOBIN 11.2 g/dl (12.0-16.0); LYMPHOCYTES # 1.6 10^3/ul (0.8-2.9); LYMPHOCYTES % 43.5 % (15.0-51.0); MEAN CORPUSCULAR HEMOGLOBIN 30.2 pg (29.0-33.0); MEAN CORPUSCULAR HGB CONC 33.5 g/dl (32.0-37.0); MEAN PLATELET VOLUME 9.7 fl (7.4-10.4); MONOCYTE # 0.3 10^3/ul (0.3-0.9); MONOCYTES % 9.2 % (0.0-11.0); NEUTROPHIL # 1.6 10^3/ul (1.6-7.5); NEUTROPHILS % 44.1 % (39.0-77.0); PLATELET COUNT 186 10^3/UL (140-415); RED BLOOD COUNT 3.71 10^6/ul (4.20-5.40); RED CELL DISTRIBUTION WIDTH 12.2 % (11.5-14.5); WHITE BLOOD COUNT 3.7 10^3/ul (4.8-10.8)
[2016-06-16 05:42] LABS: POTASSIUM 4.1 mmol/L (3.5-5.1)
[2016-06-16 05:44] LABS: CREATININE 0.64 mg/dl (0.44-1.00)
[2016-06-16 05:45] LABS: CALCIUM 9.1 mg/dl (8.4-10.2)
[2016-06-16] MEDS: PANTOPRAZOLE (EC) 40 MG TAB PO SCH (06:06)
[2016-06-16] MEDS: traMADol 50 MG TAB PO PRN (06:06)
[2016-06-16] MEDS: MULTIVITAMINS THERAPEUTIC TAB PO SCH (08:11)
[2016-06-16] MEDS: CALCIUM/VITAMIN D (500/200) TAB PO SCH ×2 (08:11→20:53)
[2016-06-16] MEDS: GABAPENTIN 300 MG CAP PO SCH ×3 (08:12→20:53)
[2016-06-16] MEDS: BENAZEPRIL 20 MG TAB PO SCH (08:13)
[2016-06-16] MEDS: HEPARIN 5,000 UNIT/0.5 ML VIAL SC SCH ×2 (08:20→20:59)
[2016-06-16] MEDS: INSULIN ASPART [NOVOLOG] 3 ML PEN SC SCH ×8 (08:21→21:01)
--- NOTE | 2016-06-16 08:41 | PN ---
Date/Time of Note Date/Time of Note DATE: 06/16/16 TIME: 08:39 Assessment/Plan VTE Prophylaxis VTE Prophylaxis Intervention: heparin Lines/Catheters IV [facility] Type (from [facility] Peripheral IV Urinary Cath still in place: No Assessment/Plan Chief Complaint/Hosp Course Assessment/Plan 1. Osteomyelitis of the right 3rd phalanx and left 2nd phalanx of the feet. cont on abx IV, f/u ID and podiatry rec's - trying to determine the length of tx and if any debridement needs to be performed during this admission. Podiatry stated they will re-evaluate today to help determine this. 2. Type 2 diabetes A1C 11.0: cont on insulin regimen and adjust as needed 3. Essential hypertension: provide with antihypertensives and adjust as needed 4. Chronic Seizure d/o. cont on dilantin 5. Dyslipidemia. on antihypertensives and adjust as needed 6. Ecoli UTI. cont on abx DISPO/PLAN: cont abx. Await podiatry input should need for further surgical intervention and for abx course. Will likely need outpt angiogram per vascular surgery team. Problems: Subjective 24 Hr Interval Summary Free Text/Dictation No acute events overnight. Exam/Review of Systems Vital Signs Vitals Vital Signs Date Time Temp Pulse Resp B/P Pulse Ox O2 Delivery O2 Flow Rate FiO2 06/15/16 19:43 98.5 90 20 139/89 97 Intake and Output 06/15/16 06/15/16 06/16/16 15:00 23:00 07:00 Intake Total 2530 ml 890 ml Balance 2530 ml 890 ml Exam GENERAL: The patient lying in bed, no acute distress HEENT: No obvious head deformity. Pupils are reactive to light. Extraocular muscles intact. CARDIOVASCULAR: Regular rate and rhythm with no extra sounds. LUNGS: Clear anteriorly. ABDOMEN: Soft, nontender, nondistended. No grimaces noted on palpation. There are positive bowel sounds. EXTREMITIES: ulcer on the left 3rd toe/phalanx and also another ulcer on the right 2nd phalanx/toe. Results Result Diagram: 06/16/16 0445 06/16/16 0445 Results 24 hrs Laboratory Tests Test 06/15/16 12:10 06/15/16 17:11 06/15/16 20:54 06/16/16 02:01 Bedside Glucose 202 136 277 H 129 Test 06/16/16 04:45 06/16/16 08:07 White Blood Count 3.7 L Red Blood Count 3.71 L Hemoglobin 11.2 L Hematocrit 33.4 L Mean Corpuscular Volume 90.0 Mean Corpuscular Hemoglobin 30.2 Mean Corpuscular Hemoglobin Concent 33.5 Red Cell Distribution Width 12.2 Platelet Count 186 Mean Platelet Volume 9.7 Neutrophils % 44.1 Lymphocytes % 43.5 Monocytes % 9.2 Eosinophils % 2.2 Basophils % 0.5 Nucleated Red Blood Cells % 0.0 Neutrophils # 1.6 Lymphocytes # 1.6 Monocytes # 0.3 Eosinophils # 0.1 Basophils # 0.0 Nucleated Red Blood Cells # 0.0 Sodium Level 141 Potassium Level 4.1 Chloride Level 106 Carbon Dioxide Level 29 Anion Gap 10 Blood Urea Nitrogen 17 Creatinine 0.64 Glucose Level 80 # Calcium Level 9.1 Bedside Glucose 155 Medications Medications Current Medications Hydralazine HCl (Apresoline) 10 mg Q4H PRN IV ELEVATED BLOOD PRESSURE; Start at 23:00 Morphine Sulfate (morphine) 3 mg Q4H PRN IV PAIN; Start 06/10/16 at 23:00 Acetaminophen (Tylenol Tab) 650 mg Q6H PRN PO PAIN AND OR ELEVATED TEMP; Start 06/10/16 at 23:00 Ondansetron HCl (Zofran Inj) 4 mg Q6H PRN IV NAUSEA AND/OR VOMITING; Start at 23:00 Heparin Sodium (Porcine) (Heparin (5000 Units/0.5 ml)) 5,000 unit Q12 SC Last administered on 06/16/16 08:20; Admin Dose 5,000 UNIT; Start 06/11/16 at 09:00 Atorvastatin Calcium (Lipitor) 10 mg HS PO Last administered on 06/15/16 20:56 ; Admin Dose 10 MG; Start 06/11/16 at 21:00 Diagnostic Test (Pha) (Accu-Chek) 1 ea 02 XX Last administered on 06/16/16 02: 01; Admin Dose 1 EA; Start 06/11/16 at 02:00 Miscellaneous Information 1 ea NOTE XX ; Start 06/10/16 at 23:30 Glucose (Glutose) 15 gm Q15M PRN PO DECREASED GLUCOSE; Start 06/10/16 at 23:30 Glucose (Glutose) 22.5 gm Q15M PRN PO DECREASED GLUCOSE; Start 06/10/16 at 23: 30 Dextrose (D50w Syringe) 25 ml Q15M PRN IV DECREASED GLUCOSE; Start 06/10/16 at 23:30 Dextrose (D50w Syringe) 50 ml Q15M PRN IV DECREASED GLUCOSE; Start 06/10/16 at 23:30 Glucagon (Glucagen) 1 mg Q15M PRN IM DECREASED GLUCOSE; Start 06/10/16 at 23:30 Glucose (Glutose) 15 gm Q15M PRN BUCCAL DECREASED GLUCOSE; Start 06/10/16 at 23 :30 Calcium/Vitamin D (Oyster Shell/ Vit-D (500/200)) 2 tab BID PO Last administered on 06/16/16 08:11; Admin Dose 2 TAB; Start 06/11/16 at 21:00 Gabapentin (Neurontin) 300 mg TID PO Last administered on 06/16/16 08:12; Admin Dose 300 MG; Start 06/11/16 at 21:00 Multivitamins Therapeutic (Theragran) 1 tab DAILY PO Last administered on 08:11; Admin Dose 1 TAB; Start 06/12/16 at 09:00 Phenytoin 100 mg 100 mg HS PO Last administered on 06/15/16 20:56; Admin Dose 100 MG; Start 06/11/16 at 21:00 Sodium Chloride (1/2 NS) 1,000 ml @ 75 mls/hr [id number] IV Last administered on 06/16/16 03:38; Admin Dose 75 MLS/HR; Start 06/11/16 at 16:00 Pantoprazole (Protonix Tab) 40 mg DAILY@06 PO Last administered on 06/16/16 06 :06; Admin Dose 40 MG; Start 06/12/16 at 06:00 Benazepril HCl (Lotensin) 20 mg DAILY PO Last administered on 06/16/16 08:13; Admin Dose 20 MG; Start 06/13/16 at 09:00 Diphenhydramine HCl (Benadryl) 25 mg Q6H PRN PO ITCHING Last administered on 18:47; Admin Dose 25 MG; Start 06/12/16 at 17:30 Acetaminophen (Tylenol Tab) 650 mg DAILY PO Last administered on 06/15/16 08: 30; Admin Dose 650 MG; Start 06/13/16 at 09:00 Diphenhydramine HCl (Benadryl) 25 mg DAILY PO Last administered on 06/15/16 08 :30; Admin Dose 25 MG; Start 06/13/16 at 09:00 Tramadol HCl (Ultram) 50 mg Q6H PRN PO PAIN LEVEL 1-5 Last administered on 06/16 06:06; Admin Dose 50 MG; Start 06/12/16 at 18:30 Insulin Glargine 25 unit 25 unit QHS SC Last administered on 06/15/16 20:59; Admin Dose 25 UNIT; Start 06/13/16 at 21:00 Ceftriaxone Sodium 50 ml @ 100 mls/hr Q24H IVPB Last administered on 17:33; Admin Dose 100 MLS/HR; Start 06/13/16 at 17:30 Vancomycin HCl (Vancocin) 250 ml @ 125 mls/hr Q12H IVPB Last administered on 01:59; Admin Dose 125 MLS/HR; Start 06/15/16 at 02:00 Miscellaneous Information (*Rx Drug Level Order Reminder*) VANCOMYCIN TROUGH LEVEL... ONCE ONCE XX ; Start 06/16/16 at 13:00; Stop 06/16/16 at 13:01 REBECA FARLEY Jun 16, 2016 08:41
[2016-06-16 08:52] VITALS: BP 147/67; RESP 18
--- NOTE | 2016-06-16 11:39 | PN ---
Date/Time of Note Date/Time of Note DATE: 06/16/16 TIME: 11:35 Assessment/Plan Lines/Catheters IV Catheter Type (from [facility]): Peripheral IV Ortega in Place (from Nrs): No Assessment/Plan Problems: (1) Urinary tract infection Status: Acute (2) Poorly controlled diabetes mellitus Status: Acute (3) Acute osteomyelitis of phalanx of foot Status: Acute Qualifiers: Laterality: left Qualified Code: M86.172 - Acute osteomyelitis of phalanx of foot, left (4) PAD (peripheral artery disease) (5) Peripheral vascular disease (6) Non-pressure chronic ulcer of other part of right foot limited to breakdown of skin (7) Non-pressure chronic ulcer of other part of left foot with fat layer exposed Assessment/Plan Patient will most likely require lower extremity arterial intervention to increase blood flow to both feet prior to any surgical management. Surgery for the foot will be delayed until arterial revascularization is achieved. Patient will require IV antibiotics for the next 6-12 weeks under infectious disease specialist. Patient can be followed up at the amputation prevention center as an outpatient basis. Patient may be discharged and followed up at the [facility]. Dressing change daily to both feet with silver Silvadene ointment to the wounds. Postop shoe can be dispensed. Weightbearing to tolerance is allowed. Subjective 24 Hr Interval Summary Patient was seen at bedside. Patient is in no acute distress. Patient reports no new adverse events. Patient denies fever, chills, nausea or vomiting. Patient denies pain. Patient denies recent trauma. Patient reports bandages are being changed as directed. Patient does not report any new problems. Constitutional: no complaints Pain Control: well controlled Exam/Review of Systems Vital Signs Vitals Vital Signs Date Time Temp Pulse Resp B/P Pulse Ox O2 Delivery O2 Flow Rate FiO2 06/16/16 08:52 97.9 59 18 147/67 97 Intake and Output 06/15/16 06/15/16 06/16/16 15:00 23:00 07:00 Intake Total 2530 ml 890 ml Balance 2530 ml 890 ml Exam Free Text/Dictation The patient is laying supine in bed in no acute distress. Bandages are C/D/I; removed for examination. Open wound present left third toe and right second toes. Distal wounds are dry with no active drainage of pus or bleeding. Wound appears to have improved. There is no erythema present. Tenderness to palpation noted. Pedal pulses weakly palpable bilaterally. Edema is reduced since last visit. Protective sensation is diminished to sharp, dull, vibratory and temperature stimuli. Deep tendon reflexes are normal bilaterally. Muscle power is 5/5 bilateral lower extremity. No calf atrophy noted on exam. Labs reviewed: MRSA from bilateral wound cultures. MRI is positive for high intensity signal at the distal aspect of the corresponding toes. Results Result Diagram: 06/16/16 0445 06/16/16 0445 HARI CHERRY DPM Jun 16, 2016 11:39
[2016-06-16] MEDS: ACETAMINOPHEN 325 MG TAB PO SCH (15:01)
[2016-06-16] MEDS: DIPHENHYDRAMINE 25 MG CAP PO SCH (15:09)
--- NOTE | 2016-06-16 15:29 | CONS ---
Date/Time of Note Date/Time of Note DATE: 06/16/16 TIME: 15:27 Assessment/Plan Assessment/Plan Chief Complaint/Hosp Course SUBJECTIVE: No acute changes, no fevers. MICROBIOLOGY: Urine culture on admission grew E. coli. Left and right foot wound cultures growing MRSA. ANTIMICROBIALS: The patient is on: 1. IV vancomycin. 2. Rocephin PHYSICAL EXAMINATION: GENERAL: Well-developed elderly woman who is alert, in no distress. HEENT: Head atraumatic, normocephalic. Sclerae anicteric. Buccal mucosa pink. NECK: Supple. Trachea midline. CHEST: Rise symmetrical. Breath sounds diminished to bases. HEART: S1, S2. ABDOMEN: Soft. Bowel tones present. EXTREMITIES: No cyanosis. The patient has necrotic wounds on her toes bilaterally. ASSESSMENT: 1. Bilateral foot cellulitis with osteomyelitis of the left 2nd toe and right 3rd toe with wound cultures growing Staphylococcus aureus preliminary. 2. Urinary tract infection. 3. Diabetes. 4. Peripheral arterial disease. PLAN: The patient remains stable. Needs 6-8 weeks IV Vancomycin as per podiatry rec-s, consider PICC, dc Cally WHALEN RN Problems: Consultation Date/Type/Reason Admit Date/Time Jun 10, 2016 at 20:31 Initial Consult Date 06/13/16 Type of Consultation: ID Exam/Review of Systems Vital Signs Vitals Vital Signs Date Time Temp Pulse Resp B/P Pulse Ox O2 Delivery O2 Flow Rate FiO2 06/16/16 08:52 97.9 59 18 147/67 97 Intake and Output 06/15/16 06/15/16 06/16/16 15:00 23:00 07:00 Intake Total 2530 ml 890 ml Balance 2530 ml 890 ml Results Result Diagram: 06/16/16 0445 06/16/16 0445 Results 24 hrs Laboratory Tests Test 06/15/16 17:11 06/15/16 20:54 06/16/16 02:01 06/16/16 04:45 Bedside Glucose 136 277 H 129 White Blood Count 3.7 L Red Blood Count 3.71 L Hemoglobin 11.2 L Hematocrit 33.4 L Mean Corpuscular Volume 90.0 Mean Corpuscular Hemoglobin 30.2 Mean Corpuscular Hemoglobin Concent 33.5 Red Cell Distribution Width 12.2 Platelet Count 186 Mean Platelet Volume 9.7 Neutrophils % 44.1 Lymphocytes % 43.5 Monocytes % 9.2 Eosinophils % 2.2 Basophils % 0.5 Nucleated Red Blood Cells % 0.0 Neutrophils # 1.6 Lymphocytes # 1.6 Monocytes # 0.3 Eosinophils # 0.1 Basophils # 0.0 Nucleated Red Blood Cells # 0.0 Sodium Level 141 Potassium Level 4.1 Chloride Level 106 Carbon Dioxide Level 29 Anion Gap 10 Blood Urea Nitrogen 17 Creatinine 0.64 Glucose Level 80 # Calcium Level 9.1 Test 06/16/16 08:07 06/16/16 12:01 06/16/16 13:20 Bedside Glucose 155 231 H Vancomycin Level Trough 10.6 Medications Medications Current Medications Hydralazine HCl (Apresoline) 10 mg Q4H PRN IV ELEVATED BLOOD PRESSURE; Start at 23:00 Morphine Sulfate (morphine) 3 mg Q4H PRN IV PAIN; Start 06/10/16 at 23:00 Acetaminophen (Tylenol Tab) 650 mg Q6H PRN PO PAIN AND OR ELEVATED TEMP; Start 06/10/16 at 23:00 Ondansetron HCl (Zofran Inj) 4 mg Q6H PRN IV NAUSEA AND/OR VOMITING; Start at 23:00 Heparin Sodium (Porcine) (Heparin (5000 Units/0.5 ml)) 5,000 unit Q12 SC Last administered on 06/16/16 08:20; Admin Dose 5,000 UNIT; Start 06/11/16 at 09:00 Atorvastatin Calcium (Lipitor) 10 mg HS PO Last administered on 06/15/16 20:56 ; Admin Dose 10 MG; Start 06/11/16 at 21:00 Diagnostic Test (Pha) (Accu-Chek) 1 ea 02 XX Last administered on 06/16/16 02: 01; Admin Dose 1 EA; Start 06/11/16 at 02:00 Miscellaneous Information 1 ea NOTE XX ; Start 06/10/16 at 23:30 Glucose (Glutose) 15 gm Q15M PRN PO DECREASED GLUCOSE; Start 06/10/16 at 23:30 Glucose (Glutose) 22.5 gm Q15M PRN PO DECREASED GLUCOSE; Start 06/10/16 at 23: 30 Dextrose (D50w Syringe) 25 ml Q15M PRN IV DECREASED GLUCOSE; Start 06/10/16 at 23:30 Dextrose (D50w Syringe) 50 ml Q15M PRN IV DECREASED GLUCOSE; Start 06/10/16 at 23:30 Glucagon (Glucagen) 1 mg Q15M PRN IM DECREASED GLUCOSE; Start 06/10/16 at 23:30 Glucose (Glutose) 15 gm Q15M PRN BUCCAL DECREASED GLUCOSE; Start 06/10/16 at 23 :30 Calcium/Vitamin D (Oyster Shell/ Vit-D (500/200)) 2 tab BID PO Last administered on 06/16/16 08:11; Admin Dose 2 TAB; Start 06/11/16 at 21:00 Gabapentin (Neurontin) 300 mg TID PO Last administered on 06/16/16 15:09; Admin Dose 300 MG; Start 06/11/16 at 21:00 Multivitamins Therapeutic (Theragran) 1 tab DAILY PO Last administered on 08:11; Admin Dose 1 TAB; Start 06/12/16 at 09:00 Phenytoin 100 mg 100 mg HS PO Last administered on 06/15/16 20:56; Admin Dose 100 MG; Start 06/11/16 at 21:00 Sodium Chloride (1/2 NS) 1,000 ml @ 75 mls/hr [id number] IV Last administered on 06/16/16 03:38; Admin Dose 75 MLS/HR; Start 06/11/16 at 16:00 Pantoprazole (Protonix Tab) 40 mg DAILY@06 PO Last administered on 06/16/16 06 :06; Admin Dose 40 MG; Start 06/12/16 at 06:00 Benazepril HCl (Lotensin) 20 mg DAILY PO Last administered on 06/16/16 08:13; Admin Dose 20 MG; Start 06/13/16 at 09:00 Diphenhydramine HCl (Benadryl) 25 mg Q6H PRN PO ITCHING Last administered on 18:47; Admin Dose 25 MG; Start 06/12/16 at 17:30 Acetaminophen (Tylenol Tab) 650 mg DAILY PO Last administered on 06/15/16 08: 30; Admin Dose 650 MG; Start 06/13/16 at 09:00 Diphenhydramine HCl (Benadryl) 25 mg DAILY PO Last administered on 06/16/16 15 :09; Admin Dose 25 MG; Start 06/13/16 at 09:00 Tramadol HCl (Ultram) 50 mg Q6H PRN PO PAIN LEVEL 1-5 Last administered on 06/16 06:06; Admin Dose 50 MG; Start 06/12/16 at 18:30 Insulin Glargine 25 unit 25 unit QHS SC Last administered on 06/15/16 20:59; Admin Dose 25 UNIT; Start 06/13/16 at 21:00 Ceftriaxone Sodium 50 ml @ 100 mls/hr Q24H IVPB Last administered on 17:33; Admin Dose 100 MLS/HR; Start 06/13/16 at 17:30 Vancomycin HCl (Vancocin) 250 ml @ 125 mls/hr Q12H IVPB Last administered on 01:59; Admin Dose 125 MLS/HR; Start 06/15/16 at 02:00 JOSELITO AGARWAL NP Jun 16, 2016 15:29
[2016-06-16] MEDS: CEFTRIAXONE 1 GM/50 ML (PMX) 50 ML IVPB SCH (17:52)
[2016-06-16 20:53] VITALS: BP 134/62; RESP 20
[2016-06-16] MEDS: PHENYTOIN 100 MG CAP PO SCH (20:54)
[2016-06-16] MEDS: ATORVASTATIN 10 MG TAB PO SCH (20:54)
[2016-06-16] MEDS: INSULIN GLARGINE [LANtus] 3 ML PEN SC SCH (21:00)
[2016-06-17] MEDS: VANCOMYCIN 1 GM in NS 250 ML IVPB SCH (02:22)
[2016-06-17] MEDS: ACCU-CHEK XX SCH (02:25)
[2016-06-17] MEDS: SOD CHLORIDE 0.45% 1,000 ML IV SCH ×3 (05:20→19:00)
[2016-06-17] MEDS: PANTOPRAZOLE (EC) 40 MG TAB PO SCH (06:21)
[2016-06-17 06:27] LABS: ADD SCAN DIFF NO
[2016-06-17 06:32] LABS: BASOPHILS % 0.3 % (0.0-2.0); EOSINOPHILS # 0.1 10^3/ul (0.0-0.5); EOSINOPHILS % 2.7 % (0.0-7.0); HEMATOCRIT 32.3 % (37.0-47.0); HEMOGLOBIN 11.1 g/dl (12.0-16.0); LYMPHOCYTES # 1.5 10^3/ul (0.8-2.9); LYMPHOCYTES % 40.8 % (15.0-51.0); MEAN CORPUSCULAR HEMOGLOBIN 31.1 pg (29.0-33.0); MEAN CORPUSCULAR HGB CONC 34.4 g/dl (32.0-37.0); MEAN CORPUSCULAR VOLUME 90.5 fl (82.0-101.0); MEAN PLATELET VOLUME 9.8 fl (7.4-10.4); MONOCYTE # 0.4 10^3/ul (0.3-0.9); MONOCYTES % 11.6 % (0.0-11.0); NEUTROPHIL # 1.6 10^3/ul (1.6-7.5); NEUTROPHILS % 44.3 % (39.0-77.0); PLATELET COUNT 187 10^3/UL (140-415); RED BLOOD COUNT 3.57 10^6/ul (4.20-5.40); RED CELL DISTRIBUTION WIDTH 12.2 % (11.5-14.5); WHITE BLOOD COUNT 3.7 10^3/ul (4.8-10.8)
[2016-06-17 07:00] LABS: CALCIUM 8.9 mg/dl (8.4-10.2); CREATININE 0.63 mg/dl (0.44-1.00)
[2016-06-17 07:35] VITALS: BP 111/59; RESP 18
[2016-06-17] MEDS: INSULIN ASPART [NOVOLOG] 3 ML PEN SC SCH ×8 (08:15→21:09)
[2016-06-17] MEDS: GABAPENTIN 300 MG CAP PO SCH ×3 (08:29→20:51)
[2016-06-17] MEDS: CALCIUM/VITAMIN D (500/200) TAB PO SCH ×2 (08:30→22:34)
[2016-06-17] MEDS: MULTIVITAMINS THERAPEUTIC TAB PO SCH (08:30)
[2016-06-17] MEDS: BENAZEPRIL 20 MG TAB PO SCH (08:30)
[2016-06-17] MEDS: HEPARIN 5,000 UNIT/0.5 ML VIAL SC SCH ×2 (08:40→21:01)
[2016-06-17] MEDS: ACETAMINOPHEN 325 MG TAB PO SCH (09:00)
--- NOTE | 2016-06-17 11:06 | CONS ---
DATE OF ADMISSION: 06/10/2016 DATE OF CONSULTATION: 06/17/2016 TYPE OF CONSULTATION: Vascular surgery Dear Doctors: Ms. Pacheco is a 75-year-old female with history of diabetes who presented to [facility] with bilateral lower extremity gangrene of the left second toe and right third toe. The tomas ent had originally presented with swelling and drainage from her left third toe, which has been micah ged with antibiotics. At the moment, the patient's daughter is at the bedside and she mentions that she denies any shortness of breath, chest pain, nausea, vomiting, fever or chills. The patient gaffney s have tenderness in the areas of the toe gangrene and has had this for some time. Unfortunately, t he patient does have some a component of dementia and her daughter is mainly her decision maker and answering the questions. REVIEW OF SYSTEMS: A 12-point review performed and negative except what was mentioned in the HPI. PAST MEDICAL HISTORY: Entails diabetes, hypertension, dementia, seizures, dyslipidemia, bilateral l ower extremity atherosclerosis and previous diabetic foot ulcers. PAST SURGICAL HISTORY: , hysterectomy and back surgery. SOCIAL HISTORY: Denies tobacco, alcohol or illicit drug use. ALLERGIES: NO KNOWN DRUG ALLERGIES. PHYSICAL EXAMINATION: GENERAL: Alert, oriented x2, no apparent distress. HEENT: Normocephalic, atraumatic. EOMI. Mucosa moist. NECK: Supple. No carotid bruit. PULMONARY: Clear to auscultation bilaterally. No crackles. CARDIOVASCULAR: S1, S2 present. No murmurs. ABDOMEN: Soft, nontender, nondistended. Bowel sounds positive. Truncal obesity. EXTREMITIES: Right lower extremity palpable femoral pulse, nonpalpable pedal pulse. Motor, sensory intact. Capillary refill 3 seconds. There is third toe gangrene at the tip. Tender upon palpatio n and dependent rubor. Left lower extremity palpable femoral pulse, nonpalpable pedal pulse. Motor, sensory intact. Capil maia refill 3 seconds. There is left second toe gangrene. No drainage; however, tender upon palpat ion and dependent rubor. ASSESSMENT AND PLAN: Bilateral lower extremity atherosclerosis and gangrene: It seems the patient has significant tissue loss and suggestion of osteomyelitis. At the moment, the patient did have no ninvasive vascular studies that identified patient having monophasic flow, which significance of inf rapopliteal disease is there. Would recommend for the patient to undergo angiogram and likely inter vention. We will plan to obtain bilateral lower extremity vein mapping in order to evaluate her pos sible options if needed. Optimize vascular status (BP meds, diet, nutrition, exercise, sugar control, antiplatelets). Discussed the findings, plan and management with the patient and the patient's daughter and will farhat n to have the patient place a PICC line for treatment of the osteomyelitis. However, the patient wi ll require further increased perfusion to the lower extremities. We will plan to schedule the patie nt for angio coming up this week. Thank you for allowing us to partake in the care of your patient. Please call with any questions. Dictated By: NANCI RANDOLPH/LEI Conf#: [id number] DID#: [id number]
--- NOTE | 2016-06-17 12:24 | PN ---
Date/Time of Note Date/Time of Note DATE: 06/17/16 TIME: 12:22 Assessment/Plan VTE Prophylaxis VTE Prophylaxis Intervention: LMWH Lines/Catheters IV [facility]ter Type (from [facility]): Peripheral IV Central line still needed: Yes Urinary Cath still in place: No Assessment/Plan Problems: (1) Poorly controlled diabetes mellitus Status: Acute Comment: In a controlled setting with a controlled diet controlled administration medications her blood sugar control is excellent. This does not match the outpatient A1c of 11.0 (2) Acute osteomyelitis of phalanx of foot Status: Acute Comment: She is going need a PICC line for IV antibiotic therapy. Once she has had a couple weeks of antibiotic therapy into help calm down the osteomyelitis and she can undergo the peripheral arterial evaluation by the appropriate practitioner Qualifiers: Laterality: left Qualified Code: M86.172 - Acute osteomyelitis of phalanx of foot, left (3) PAD (peripheral artery disease) Status: Chronic Comment: Noted this will need to be interfered with (4) E. coli UTI Status: Acute Comment: She is on appropriate antibiotics and clearing nicely. Discharge planning should be underway Subjective 24 Hr Interval Summary Free Text/Dictation Charming loading woman sitting up in bed. Reports doing better Constitutional: no complaints (Denies fever chills or sweats) Respiratory: no complaints Cardiovascular: no complaints Gastrointestinal: no complaints Genitourinary: no complaints Exam/Review of Systems Vital Signs Vitals Vital Signs Date Time Temp Pulse Resp B/P Pulse Ox O2 Delivery O2 Flow Rate FiO2 06/17/16 07:35 98.5 89 18 111/59 96 Intake and Output 06/16/16 06/16/16 06/17/16 15:00 23:00 07:00 Intake Total 2150 ml 1060 ml Output Total 3 ml Balance 2150 ml 1057 ml Exam Constitutional: alert, oriented Neck: non-tender, supple Respiratory: clear to auscultation, normal air movement Cardiovascular: nl pulses, regular rate and rhythm Results Result Diagram: 06/17/16 0514 06/17/16 0514 Results 24 hrs Laboratory Tests Test 06/16/16 13:20 06/16/16 16:58 06/16/16 20:56 06/17/16 02:24 Vancomycin Level Trough 10.6 Bedside Glucose 140 211 100 Test 06/17/16 05:14 06/17/16 08:23 White Blood Count 3.7 L Red Blood Count 3.57 L Hemoglobin 11.1 L Hematocrit 32.3 L Mean Corpuscular Volume 90.5 Mean Corpuscular Hemoglobin 31.1 Mean Corpuscular Hemoglobin Concent 34.4 Red Cell Distribution Width 12.2 Platelet Count 187 Mean Platelet Volume 9.8 Neutrophils % 44.3 Lymphocytes % 40.8 Monocytes % 11.6 H Eosinophils % 2.7 Basophils % 0.3 Nucleated Red Blood Cells % 0.0 Neutrophils # 1.6 Lymphocytes # 1.5 Monocytes # 0.4 Eosinophils # 0.1 Basophils # 0.0 Nucleated Red Blood Cells # 0.0 Sodium Level 140 Potassium Level 4.0 Chloride Level 108 Carbon Dioxide Level 28 Anion Gap 8 Blood Urea Nitrogen 12 Creatinine 0.63 Glucose Level 100 Calcium Level 8.9 Bedside Glucose 99 Medications Medications Current Medications Hydralazine HCl (Apresoline) 10 mg Q4H PRN IV ELEVATED BLOOD PRESSURE; Start at 23:00 Morphine Sulfate (morphine) 3 mg Q4H PRN IV PAIN; Start 06/10/16 at 23:00 Acetaminophen (Tylenol Tab) 650 mg Q6H PRN PO PAIN AND OR ELEVATED TEMP; Start 06/10/16 at 23:00 Ondansetron HCl (Zofran Inj) 4 mg Q6H PRN IV NAUSEA AND/OR VOMITING; Start at 23:00 Heparin Sodium (Porcine) (Heparin (5000 Units/0.5 ml)) 5,000 unit Q12 SC Last administered on 06/17/16 08:40; Admin Dose 5,000 UNIT; Start 06/11/16 at 09:00 Atorvastatin Calcium (Lipitor) 10 mg HS PO Last administered on 06/16/16 20:54 ; Admin Dose 10 MG; Start 06/11/16 at 21:00 Diagnostic Test (Pha) (Accu-Chek) 1 ea 02 XX Last administered on 06/17/16 02: 25; Admin Dose 1 EA; Start 06/11/16 at 02:00 Miscellaneous Information 1 ea NOTE XX ; Start 06/10/16 at 23:30 Glucose (Glutose) 15 gm Q15M PRN PO DECREASED GLUCOSE; Start 06/10/16 at 23:30 Glucose (Glutose) 22.5 gm Q15M PRN PO DECREASED GLUCOSE; Start 06/10/16 at 23: 30 Dextrose (D50w Syringe) 25 ml Q15M PRN IV DECREASED GLUCOSE; Start 06/10/16 at 23:30 Dextrose (D50w Syringe) 50 ml Q15M PRN IV DECREASED GLUCOSE; Start 06/10/16 at 23:30 Glucagon (Glucagen) 1 mg Q15M PRN IM DECREASED GLUCOSE; Start 06/10/16 at 23:30 Glucose (Glutose) 15 gm Q15M PRN BUCCAL DECREASED GLUCOSE; Start 06/10/16 at 23 :30 Calcium/Vitamin D (Oyster Shell/ Vit-D (500/200)) 2 tab BID PO Last administered on 06/17/16 08:30; Admin Dose 2 TAB; Start 06/11/16 at 21:00 Gabapentin (Neurontin) 300 mg TID PO Last administered on 06/17/16 08:29; Admin Dose 300 MG; Start 06/11/16 at 21:00 Multivitamins Therapeutic (Theragran) 1 tab DAILY PO Last administered on 08:30; Admin Dose 1 TAB; Start 06/12/16 at 09:00 Phenytoin 100 mg 100 mg HS PO Last administered on 06/16/16 20:54; Admin Dose 100 MG; Start 06/11/16 at 21:00 Sodium Chloride (1/2 NS) 1,000 ml @ 75 mls/hr [id number] IV Last administered on 06/16/16 20:52; Admin Dose 75 MLS/HR; Start 06/11/16 at 16:00 Pantoprazole (Protonix Tab) 40 mg DAILY@06 PO Last administered on 06/17/16 06 :21; Admin Dose 40 MG; Start 06/12/16 at 06:00 Benazepril HCl (Lotensin) 20 mg DAILY PO Last administered on 06/17/16 08:30; Admin Dose 20 MG; Start 06/13/16 at 09:00 Diphenhydramine HCl (Benadryl) 25 mg Q6H PRN PO ITCHING Last administered on 18:47; Admin Dose 25 MG; Start 06/12/16 at 17:30 Acetaminophen (Tylenol Tab) 650 mg DAILY PO Last administered on 06/15/16 08: 30; Admin Dose 650 MG; Start 06/13/16 at 09:00 Diphenhydramine HCl (Benadryl) 25 mg DAILY PO Last administered on 06/16/16 15 :09; Admin Dose 25 MG; Start 06/13/16 at 09:00 Tramadol HCl (Ultram) 50 mg Q6H PRN PO PAIN LEVEL 1-5 Last administered on 06/16 06:06; Admin Dose 50 MG; Start 06/12/16 at 18:30 Insulin Glargine 25 unit 25 unit QHS SC Last administered on 06/16/16 21:00; Admin Dose 25 UNIT; Start 06/13/16 at 21:00 Vancomycin HCl (Vancocin) 250 ml @ 125 mls/hr Q12H IVPB Last administered on 02:22; Admin Dose 125 MLS/HR; Start 06/15/16 at 02:00 JOSH CUNNINGHAM MD Jun 17, 2016 12:24
[2016-06-17] MEDS ORDERED: LIDOCAINE 1% (MPF) 5 ML VIAL SC ONE ×2 (12:30→14:30)
--- NOTE | 2016-06-17 15:57 | RADRPT ---
PROCEDURE: XR Chest. CLINICAL INDICATION: PICC placement. TECHNIQUE: Single frontal chest x-ray. COMPARISON: Exam dated 04/15/2009. FINDINGS: There has been interval placement of a well-positioned left-sided PICC with its tip overlying the fraga perior cavoatrial junction. The cardiomediastinal silhouette is within normal limits. There is elev ation of the left hemidiaphragm and left basilar subsegmental atelectasis, similar when compared the prior. The right lung is clear. There is no pneumothorax. There are no acute osseous abnormaliti es. IMPRESSION: 1. Interval placement of a well-positioned left-sided PICC with its tip overlying the superior cavo atrial junction. 2. No acute cardiopulmonary abnormality. RPTAT: QQ .Renny Oliva MD, Date Time Electronically viewed and signed by .Renny Oliva MD, on 06/17/2016 15:57 .P/
--- NOTE | 2016-06-17 16:50 | CONS ---
Date/Time of Note Date/Time of Note DATE: 06/17/16 TIME: 16:49 Assessment/Plan Assessment/Plan Chief Complaint/Hosp Course ID PROGRESS NOTE TOTAL ABX DAY # =>Vanco IV s/p Ceftriaxone 24H INTERVAL SUMMARY * A/A/O -- sitting up edge of bed, no complaints -- New PICC today * MICROBIOLOGY: Urine culture on admission grew E. coli. Left and right foot wound cultures growing MRSA. PHYSICAL EXAMINATION: GENERAL: VSS,NAD, no fevers HEENT: Unremarkable NECK: Supple, trach-> midline CHEST: Equal chest rise bilaterally, without dyspnea on observation HEART: Pulse RRR ABDOMEN: Soft, benign EXTREMITIES: Warm, necrotic wounds on her toes bilaterally. SKIN: Warm, dry ID ASSESSMENT: 75 yo F w/PMHx Obesity admitted with: 1. Bilateral foot cellulitis with osteomyelitis of the left 2nd toe and right 3rd toe =>(+)MRSA 2. Urinary tract infection=> s/p Ceftriaxone 3. Diabetes w/ suspected complications of DM Poly/Peripheral neuropathy 4. Peripheral arterial disease. (-)MRSA NARES INVASIVES: * PIV ABX ALLERGIES: KNDA CURRENT ABX: DAY # Vanco IV s/p Ceftriaxone ID RECOMMENDATIONS: 1. When cleared by primary provider -> DC home with HH RN Vanco IV x 7 weeks for total 8 weeks per IDSA Guidelines MRSA Osteomyelitis CASE MANAGEMENT DC ABX ORDER PLACED TODAY Indication: Bilateral foot cellulitis with osteomyelitis of the left 2nd toe and right 3rd toe =>(+)MRSA BASELINE STATS: WT: 81.5 kg, S.Creatinine 0.63 TOTAL ABX COURSE: 56 Days => Last day 08/06/16 VANCO IV HX: Vanco IV 1st dose initiated 06/10/16 PM, Vanco Trough 06/14/16 0645 =9.1, Vanco Trough 06/16/16 1320 =10.6 Vanco dose increased to: Vanco IV 1.25GM Q12H on 1700 dose * HH RN to draw BUN/S.Creatinine approximately 1330- 1430 prior to 06/18/16 1700 dose, with results called to OP Pharmacist for continued OP Vanco IV dosing Problems: Consultation Date/Type/Reason Admit Date/Time Jun 10, 2016 at 20:31 Initial Consult Date 06/12/16 Type of Consultation: ID Exam/Review of Systems Vital Signs Vitals Vital Signs Date Time Temp Pulse Resp B/P Pulse Ox O2 Delivery O2 Flow Rate FiO2 06/17/16 07:35 98.5 89 18 111/59 96 Intake and Output 06/16/16 06/16/16 06/17/16 15:00 23:00 07:00 Intake Total 2150 ml 1060 ml Output Total 3 ml Balance 2150 ml 1057 ml Results Result Diagram: 06/17/16 0514 06/17/16 0514 Results 24 hrs Laboratory Tests Test 06/16/16 16:58 06/16/16 20:56 06/17/16 02:24 06/17/16 05:14 Bedside Glucose 140 211 100 White Blood Count 3.7 L Red Blood Count 3.57 L Hemoglobin 11.1 L Hematocrit 32.3 L Mean Corpuscular Volume 90.5 Mean Corpuscular Hemoglobin 31.1 Mean Corpuscular Hemoglobin Concent 34.4 Red Cell Distribution Width 12.2 Platelet Count 187 Mean Platelet Volume 9.8 Neutrophils % 44.3 Lymphocytes % 40.8 Monocytes % 11.6 H Eosinophils % 2.7 Basophils % 0.3 Nucleated Red Blood Cells % 0.0 Neutrophils # 1.6 Lymphocytes # 1.5 Monocytes # 0.4 Eosinophils # 0.1 Basophils # 0.0 Nucleated Red Blood Cells # 0.0 Sodium Level 140 Potassium Level 4.0 Chloride Level 108 Carbon Dioxide Level 28 Anion Gap 8 Blood Urea Nitrogen 12 Creatinine 0.63 Glucose Level 100 Calcium Level 8.9 Test 06/17/16 08:23 06/17/16 12:13 Bedside Glucose 99 157 Medications Medications Current Medications Hydralazine HCl (Apresoline) 10 mg Q4H PRN IV ELEVATED BLOOD PRESSURE; Start at 23:00 Morphine Sulfate (morphine) 3 mg Q4H PRN IV PAIN; Start 06/10/16 at 23:00 Acetaminophen (Tylenol Tab) 650 mg Q6H PRN PO PAIN AND OR ELEVATED TEMP; Start 06/10/16 at 23:00 Ondansetron HCl (Zofran Inj) 4 mg Q6H PRN IV NAUSEA AND/OR VOMITING; Start at 23:00 Heparin Sodium (Porcine) (Heparin (5000 Units/0.5 ml)) 5,000 unit Q12 SC Last administered on 06/17/16t 08:40; Admin Dose 5,000 UNIT; Start 06/11/16 at 09:00 Diagnostic Test (Pha) (Accu-Chek) 1 ea 02 XX Last administered on 06/17/16 02: 25; Admin Dose 1 EA; Start 06/11/16 at 02:00 Miscellaneous Information 1 ea NOTE XX ; Start 06/10/16 at 23:30 Glucose (Glutose) 15 gm Q15M PRN PO DECREASED GLUCOSE; Start 06/10/16 at 23:30 Glucose (Glutose) 22.5 gm Q15M PRN PO DECREASED GLUCOSE; Start 06/10/16 at 23: 30 Dextrose (D50w Syringe) 25 ml Q15M PRN IV DECREASED GLUCOSE; Start 06/10/16 at 23:30 Dextrose (D50w Syringe) 50 ml Q15M PRN IV DECREASED GLUCOSE; Start 06/10/16 at 23:30 Glucagon (Glucagen) 1 mg Q15M PRN IM DECREASED GLUCOSE; Start 06/10/16 at 23:30 Glucose (Glutose) 15 gm Q15M PRN BUCCAL DECREASED GLUCOSE; Start 06/10/16 at 23 :30 Calcium/Vitamin D (Oyster Shell/ Vit-D (500/200)) 2 tab BID PO Last administered on 06/17/16 08:30; Admin Dose 2 TAB; Start 06/11/16 at 21:00 Gabapentin (Neurontin) 300 mg TID PO Last administered on 06/17/16 08:29; Admin Dose 300 MG; Start 06/11/16 at 21:00 Multivitamins Therapeutic (Theragran) 1 tab DAILY PO Last administered on 08:30; Admin Dose 1 TAB; Start 06/12/16 at 09:00 Phenytoin 100 mg 100 mg HS PO Last administered on 06/16/16 20:54; Admin Dose 100 MG; Start 06/11/16 at 21:00 Sodium Chloride (1/2 NS) 1,000 ml @ 75 mls/hr [id number] IV Last administered on 06/17/16 12:24; Admin Dose 75 MLS/HR; Start 06/11/16 at 16:00 Pantoprazole (Protonix Tab) 40 mg DAILY@06 PO Last administered on 06/17/16 06 :21; Admin Dose 40 MG; Start 06/12/16 at 06:00 Benazepril HCl (Lotensin) 20 mg DAILY PO Last administered on 06/17/16 08:30; Admin Dose 20 MG; Start 06/13/16 at 09:00 Diphenhydramine HCl (Benadryl) 25 mg Q6H PRN PO ITCHING Last administered on 18:47; Admin Dose 25 MG; Start 06/12/16 at 17:30 Acetaminophen (Tylenol Tab) 650 mg DAILY PO Last administered on 06/15/16 08: 30; Admin Dose 650 MG; Start 06/13/16 at 09:00 Diphenhydramine HCl (Benadryl) 25 mg DAILY PO Last administered on 06/16/16 15 :09; Admin Dose 25 MG; Start 06/13/16 at 09:00 Tramadol HCl (Ultram) 50 mg Q6H PRN PO PAIN LEVEL 1-5 Last administered on 06/16 06:06; Admin Dose 50 MG; Start 06/12/16 at 18:30 Insulin Glargine (Lantus) 25 unit QHS SC Last administered on 06/16/16 21:00; Admin Dose 25 UNIT; Start 06/13/16 at 21:00 Atorvastatin Calcium 40 mg 40 mg HS PO ; Start 06/17/16 at 21:00 Vancomycin HCl/ Sodium Chloride (Vancocin/NS) 250 ml @ 83.333 mls/ hr Q12H IVPB ; Start 06/17/16 at 17:00 IV Flush (NS 10 ml) 10 ml PRN PRN IV FLUSH LINE; Start 06/17/16 at 16:30; Status VINYAAK MICHELLE [employer] Jun 17, 2016 16:50
[2016-06-17] MEDS: VANCOMYCIN 1.25 GM in SOD CHLORIDE 0.9% 250 ML IVPB SCH (17:13)
[2016-06-17] MEDS: DIPHENHYDRAMINE 25 MG CAP PO SCH (17:16)
--- NOTE | 2016-06-17 18:04 | RADRPT ---
PROCEDURE: US guidance for PICC line CLINICAL INDICATION: PICC line placement TECHNIQUE: Multiple real-time images were acquired of the patient's arm utilizing a high resolutio n transducer. This was performed by the PICC line nurse for venous access. COMPARISON: None FINDINGS: Ultrasound guidance for PICC line placement. IMPRESSION: Ultrasound guidance for PICC line placement. RPTAT: AA .Audie Diggs MD, MD Date Time Electronically viewed and signed by .Audie Diggs MD, on 06/17/2016 18:04 .S/
[2016-06-17 20:00] VITALS: BP 129/63; PULSE 85; RESP 20
[2016-06-17] MEDS: PHENYTOIN 100 MG CAP PO SCH (20:51)
[2016-06-17] MEDS: ATORVASTATIN 40 MG TAB PO SCH (20:51)
[2016-06-17] MEDS: INSULIN GLARGINE [LANtus] 3 ML PEN SC SCH (21:02)
[2016-06-18] MEDS: ACCU-CHEK XX SCH (01:58)
[2016-06-18] MEDS: DIPHENHYDRAMINE 25 MG CAP PO PRN (05:13)
[2016-06-18] MEDS: PANTOPRAZOLE (EC) 40 MG TAB PO SCH (05:13)
[2016-06-18] MEDS: VANCOMYCIN 1.25 GM in SOD CHLORIDE 0.9% 250 ML IVPB SCH ×2 (05:14→16:41)
[2016-06-18 05:47] LABS: ADD SCAN DIFF NO
[2016-06-18 05:59] LABS: BASOPHILS % 0.2 % (0.0-2.0); EOSINOPHILS # 0.1 10^3/ul (0.0-0.5); EOSINOPHILS % 2.4 % (0.0-7.0); HEMATOCRIT 29.7 % (37.0-47.0); HEMOGLOBIN 10.3 g/dl (12.0-16.0); LYMPHOCYTES # 1.6 10^3/ul (0.8-2.9); LYMPHOCYTES % 38.8 % (15.0-51.0); MEAN CORPUSCULAR HEMOGLOBIN 31.1 pg (29.0-33.0); MEAN CORPUSCULAR HGB CONC 34.7 g/dl (32.0-37.0); MEAN CORPUSCULAR VOLUME 89.7 fl (82.0-101.0); MEAN PLATELET VOLUME 10.1 fl (7.4-10.4); MONOCYTE # 0.4 10^3/ul (0.3-0.9); MONOCYTES % 9.1 % (0.0-11.0); NEUTROPHIL # 2.1 10^3/ul (1.6-7.5); NEUTROPHILS % 49.3 % (39.0-77.0); PLATELET COUNT 159 10^3/UL (140-415); RED BLOOD COUNT 3.31 10^6/ul (4.20-5.40); RED CELL DISTRIBUTION WIDTH 12.1 % (11.5-14.5); WHITE BLOOD COUNT 4.2 10^3/ul (4.8-10.8)
[2016-06-18 06:10] LABS: CALCIUM 8.2 mg/dl (8.4-10.2); CREATININE 0.59 mg/dl (0.44-1.00); POTASSIUM 3.9 mmol/L (3.5-5.1)
[2016-06-18 07:55] VITALS: BP 134/62; RESP 18
[2016-06-18] MEDS: SOD CHLORIDE 0.45% 1,000 ML IV SCH ×3 (08:00→21:20)
[2016-06-18] MEDS: CALCIUM/VITAMIN D (500/200) TAB PO SCH ×2 (08:20→21:14)
[2016-06-18] MEDS: GABAPENTIN 300 MG CAP PO SCH ×3 (08:20→21:14)
[2016-06-18] MEDS: MULTIVITAMINS THERAPEUTIC TAB PO SCH (08:20)
[2016-06-18] MEDS: BENAZEPRIL 20 MG TAB PO SCH (08:20)
[2016-06-18] MEDS: INSULIN ASPART [NOVOLOG] 3 ML PEN SC SCH ×8 (08:26→21:20)
[2016-06-18] MEDS: HEPARIN 5,000 UNIT/0.5 ML VIAL SC SCH ×2 (08:27→21:17)
[2016-06-18] MEDS: ACETAMINOPHEN 325 MG TAB PO SCH (09:00)
--- NOTE | 2016-06-18 13:43 | PN ---
Date/Time of Note Date/Time of Note DATE: 06/18/16 TIME: 13:41 Assessment/Plan VTE Prophylaxis VTE Prophylaxis Intervention: LMWH Lines/Catheters [facility] Central Line Central line still needed: Yes Urinary Cath still in place: No Assessment/Plan Problems: (1) Osteomyelitis due to type 2 diabetes mellitus Status: Chronic Comment: Patient has a PICC line and will be able to receive antibiotics. Will make arrangements for home treatment discharge her in the morning as this is well we can get it all organized (2) E. coli UTI Status: Acute Comment: Has completed appropriate antibiotic treatment duration (3) Poorly controlled diabetes mellitus Status: Acute Comment: Much better controlled in a controlled environment on the study medication regimen (4) Urinary tract infection Status: Acute Comment: Treated Qualifiers: Urinary tract infection type: acute cystitis Hematuria presence: without hematuria Qualified Code: N30.00 - Acute cystitis without hematuria (5) PAD (peripheral artery disease) Status: Chronic Comment: Outpatient evaluation and intervention Subjective 24 Hr Interval Summary Free Text/Dictation Patient offers no new complaints Constitutional: no complaints (No fevers chills or sweats) Respiratory: no complaints Cardiovascular: no complaints Gastrointestinal: no complaints Exam/Review of Systems Vital Signs Vitals Vital Signs Date Time Temp Pulse Resp B/P Pulse Ox O2 Delivery O2 Flow Rate FiO2 06/18/16 07:55 97.9 56 18 134/62 98 06/17/16 20:00 Room Air Intake and Output 06/17/16 06/17/16 06/18/16 15:00 23:00 07:00 Intake Total 675 ml 1370 ml 1030 ml Output Total 3 ml Balance 675 ml 1370 ml 1027 ml Exam Constitutional: alert Neck: non-tender, supple Respiratory: clear to auscultation, normal air movement Cardiovascular: nl pulses, regular rate and rhythm Extremities: other (Gangrene without change) Results Result Diagram: 06/18/16 0511 06/18/16 0511 Results 24 hrs Laboratory Tests Test 06/17/16 17:11 06/17/16 21:00 06/18/16 01:52 06/18/16 05:11 Bedside Glucose 187 240 H 193 White Blood Count 4.2 L Red Blood Count 3.31 L Hemoglobin 10.3 L Hematocrit 29.7 L Mean Corpuscular Volume 89.7 Mean Corpuscular Hemoglobin 31.1 Mean Corpuscular Hemoglobin Concent 34.7 Red Cell Distribution Width 12.1 Platelet Count 159 Mean Platelet Volume 10.1 Neutrophils % 49.3 Lymphocytes % 38.8 Monocytes % 9.1 Eosinophils % 2.4 Basophils % 0.2 Nucleated Red Blood Cells % 0.0 Neutrophils # 2.1 Lymphocytes # 1.6 Monocytes # 0.4 Eosinophils # 0.1 Basophils # 0.0 Nucleated Red Blood Cells # 0.0 Sodium Level 137 Potassium Level 3.9 Chloride Level 110 Carbon Dioxide Level 24 Anion Gap 7 L Blood Urea Nitrogen 15 Creatinine 0.59 Glucose Level 198 Calcium Level 8.2 L Test 06/18/16 08:19 06/18/16 11:56 Bedside Glucose 202 201 Medications Medications Current Medications Hydralazine HCl (Apresoline) 10 mg Q4H PRN IV ELEVATED BLOOD PRESSURE; Start at 23:00 Morphine Sulfate (morphine) 3 mg Q4H PRN IV PAIN; Start 06/10/16 at 23:00 Acetaminophen (Tylenol Tab) 650 mg Q6H PRN PO PAIN AND OR ELEVATED TEMP; Start 06/10/16 at 23:00 Ondansetron HCl (Zofran Inj) 4 mg Q6H PRN IV NAUSEA AND/OR VOMITING; Start at 23:00 Heparin Sodium (Porcine) (Heparin (5000 Units/0.5 ml)) 5,000 unit Q12 SC Last administered on 06/18/16 08:27; Admin Dose 5,000 UNIT; Start 06/11/16 at 09:00 Diagnostic Test (Pha) (Accu-Chek) 1 ea 02 XX Last administered on 06/17/16 02: 25; Admin Dose 1 EA; Start 06/11/16 at 02:00 Miscellaneous Information 1 ea NOTE XX ; Start 06/10/16 at 23:30 Glucose (Glutose) 15 gm Q15M PRN PO DECREASED GLUCOSE; Start 06/10/16 at 23:30 Glucose (Glutose) 22.5 gm Q15M PRN PO DECREASED GLUCOSE; Start 06/10/16 at 23: 30 Dextrose (D50w Syringe) 25 ml Q15M PRN IV DECREASED GLUCOSE; Start 06/10/16 at 23:30 Dextrose (D50w Syringe) 50 ml Q15M PRN IV DECREASED GLUCOSE; Start 06/10/16 at 23:30 Glucagon (Glucagen) 1 mg Q15M PRN IM DECREASED GLUCOSE; Start 06/10/16 at 23:30 Glucose (Glutose) 15 gm Q15M PRN BUCCAL DECREASED GLUCOSE; Start 06/10/16 at 23 :30 Calcium/Vitamin D (Oyster Shell/ Vit-D (500/200)) 2 tab BID PO Last administered on 06/18/16 08:20; Admin Dose 2 TAB; Start 06/11/16 at 21:00 Gabapentin (Neurontin) 300 mg TID PO Last administered on 06/18/16 08:20; Admin Dose 300 MG; Start 06/11/16 at 21:00 Multivitamins Therapeutic (Theragran) 1 tab DAILY PO Last administered on 08:20; Admin Dose 1 TAB; Start 06/12/16 at 09:00 Phenytoin 100 mg 100 mg HS PO Last administered on 06/17/16 20:51; Admin Dose 100 MG; Start 06/11/16 at 21:00 Sodium Chloride (1/2 NS) 1,000 ml @ 75 mls/hr [id number] IV Last administered on 06/18/16 12:03; Admin Dose 75 MLS/HR; Start 06/11/16 at 16:00 Pantoprazole (Protonix Tab) 40 mg DAILY@06 PO Last administered on 06/18/16 05 :13; Admin Dose 40 MG; Start 06/12/16 at 06:00 Benazepril HCl (Lotensin) 20 mg DAILY PO Last administered on 06/18/16 08:20; Admin Dose 20 MG; Start 06/13/16 at 09:00 Diphenhydramine HCl (Benadryl) 25 mg Q6H PRN PO ITCHING Last administered on 05:13; Admin Dose 25 MG; Start 06/12/16 at 17:30 Acetaminophen (Tylenol Tab) 650 mg DAILY PO Last administered on 06/15/16 08: 30; Admin Dose 650 MG; Start 06/13/16 at 09:00 Diphenhydramine HCl (Benadryl) 25 mg DAILY PO Last administered on 06/17/16 17 :16; Admin Dose 25 MG; Start 06/13/16 at 09:00 Tramadol HCl (Ultram) 50 mg Q6H PRN PO PAIN LEVEL 1-5 Last administered on 06/16 06:06; Admin Dose 50 MG; Start 06/12/16 at 18:30 Insulin Glargine (Lantus) 25 unit QHS SC Last administered on 06/17/16 21:02; Admin Dose 25 UNIT; Start 06/13/16 at 21:00 Atorvastatin Calcium 40 mg 40 mg HS PO Last administered on 06/17/16 20:51; Admin Dose 40 MG; Start 06/17/16 at 21:00 Vancomycin HCl/ Sodium Chloride (Vancocin/NS) 250 ml @ 83.333 mls/ hr Q12H IVPB Last administered on 06/18/16 05:14; Admin Dose 83.333 MLS/HR; Start at 17:00 IV Flush (NS 10 ml) 10 ml PRN PRN IV FLUSH LINE; Start 06/17/16 at 16:30 JOSH CUNNINGHAM MD Jun 18, 2016 13:43
[2016-06-18] MEDS: DIPHENHYDRAMINE 25 MG CAP PO SCH (16:42)
[2016-06-18 19:40] VITALS: BP 117/56; RESP 16
[2016-06-18] MEDS: ATORVASTATIN 40 MG TAB PO SCH (21:14)
[2016-06-18] MEDS: PHENYTOIN 100 MG CAP PO SCH (21:14)
[2016-06-18] MEDS: INSULIN GLARGINE [LANtus] 3 ML PEN SC SCH (21:17)
--- NOTE | 2016-06-18 21:44 | CONS ---
Date/Time of Note Date/Time of Note DATE: 06/18/16 TIME: 21:42 Assessment/Plan Assessment/Plan Chief Complaint/Hosp Course ID PROGRESS NOTE TOTAL ABX DAY # =>Vanco IV s/p Ceftriaxone 24H INTERVAL SUMMARY * Rounding late, patient is resting comfortably with eyes closed -- VSS, no fevers * DC Planning in process -- PICC in place PHYSICAL EXAMINATION: GENERAL: VSS,NAD, no fevers HEENT: Unremarkable NECK: Supple, trach-> midline CHEST: Equal chest rise bilaterally, without dyspnea on observation HEART: Pulse RRR ABDOMEN: Soft, benign EXTREMITIES: Warm, necrotic wounds on her toes bilaterally. SKIN: Warm, dry ID ASSESSMENT: 75 yo F w/PMHx Obesity admitted with: 1. Bilateral foot cellulitis with osteomyelitis of the left 2nd toe and right 3rd toe =>(+)MRSA 2. Urinary tract infection=> s/p Ceftriaxone 3. Diabetes w/ suspected complications of DM Poly/Peripheral neuropathy 4. Peripheral arterial disease. (-)MRSA NARES INVASIVES: * PIV ABX ALLERGIES: KNDA CURRENT ABX: DAY # Vanco IV s/p Ceftriaxone ID RECOMMENDATIONS: 1. When cleared by primary provider -> DC home with HH RN Vanco IV x 7 weeks for total 8 weeks per IDSA Guidelines MRSA Osteomyelitis CASE MANAGEMENT DC ABX HH ORDER PLACED Indication: Bilateral foot cellulitis with osteomyelitis of the left 2nd toe and right 3rd toe =>(+)MRSA BASELINE STATS: WT: 81.5 kg, S.Creatinine 0.63 TOTAL ABX COURSE: 56 Days => Last day 08/06/16 VANCO IV HX: Vanco IV 1st dose initiated 06/10/16 PM, Vanco Trough 06/14/16 0645 =9.1, Vanco Trough 06/16/16 1320 =10.6 Vanco dose increased to: Vanco IV 1.25GM Q12H on 1700 dose * HH RN to draw BUN/S.Creatinine approximately 1330- 1430 prior to 06/18/16 1700 dose, with results called to OP Pharmacist for continued OP Vanco IV dosing Problems: Consultation Date/Type/Reason Admit Date/Time Jun 10, 2016 at 20:31 Initial Consult Date 06/12/16 Type of Consultation: ID Exam/Review of Systems Vital Signs Vitals Vital Signs Date Time Temp Pulse Resp B/P Pulse Ox O2 Delivery O2 Flow Rate FiO2 06/18/16 19:40 98.0 89 16 117/56 99 06/17/16 20:00 Room Air Intake and Output 06/17/16 06/17/16 06/18/16 15:00 23:00 07:00 Intake Total 675 ml 1370 ml 1030 ml Output Total 3 ml Balance 675 ml 1370 ml 1027 ml Results Result Diagram: 06/18/16 0511 06/18/16 0511 Results 24 hrs Laboratory Tests Test 06/18/16 01:52 06/18/16 05:11 06/18/16 08:19 06/18/16 11:56 Bedside Glucose 193 202 201 White Blood Count 4.2 L Red Blood Count 3.31 L Hemoglobin 10.3 L Hematocrit 29.7 L Mean Corpuscular Volume 89.7 Mean Corpuscular Hemoglobin 31.1 Mean Corpuscular Hemoglobin Concent 34.7 Red Cell Distribution Width 12.1 Platelet Count 159 Mean Platelet Volume 10.1 Neutrophils % 49.3 Lymphocytes % 38.8 Monocytes % 9.1 Eosinophils % 2.4 Basophils % 0.2 Nucleated Red Blood Cells % 0.0 Neutrophils # 2.1 Lymphocytes # 1.6 Monocytes # 0.4 Eosinophils # 0.1 Basophils # 0.0 Nucleated Red Blood Cells # 0.0 Sodium Level 137 Potassium Level 3.9 Chloride Level 110 Carbon Dioxide Level 24 Anion Gap 7 L Blood Urea Nitrogen 15 Creatinine 0.59 Glucose Level 198 Calcium Level 8.2 L Test 06/18/16 17:59 06/18/16 21:13 Bedside Glucose 169 222 H Medications Medications Current Medications Hydralazine HCl (Apresoline) 10 mg Q4H PRN IV ELEVATED BLOOD PRESSURE; Start at 23:00 Morphine Sulfate (morphine) 3 mg Q4H PRN IV PAIN; Start 06/10/16 at 23:00 Acetaminophen (Tylenol Tab) 650 mg Q6H PRN PO PAIN AND OR ELEVATED TEMP; Start 06/10/16 at 23:00 Ondansetron HCl (Zofran Inj) 4 mg Q6H PRN IV NAUSEA AND/OR VOMITING; Start at 23:00 Heparin Sodium (Porcine) (Heparin (5000 Units/0.5 ml)) 5,000 unit Q12 SC Last administered on 06/18/16 21:17; Admin Dose 5,000 UNIT; Start 06/11/16 at 09:00 Diagnostic Test (Pha) (Accu-Chek) 1 ea 02 XX Last administered on 06/17/16 02: 25; Admin Dose 1 EA; Start 06/11/16 at 02:00 Miscellaneous Information 1 ea NOTE XX ; Start 06/10/16 at 23:30 Glucose (Glutose) 15 gm Q15M PRN PO DECREASED GLUCOSE; Start 06/10/16 at 23:30 Glucose (Glutose) 22.5 gm Q15M PRN PO DECREASED GLUCOSE; Start 06/10/16 at 23: 30 Dextrose (D50w Syringe) 25 ml Q15M PRN IV DECREASED GLUCOSE; Start 06/10/16 at 23:30 Dextrose (D50w Syringe) 50 ml Q15M PRN IV DECREASED GLUCOSE; Start 06/10/16 at 23:30 Glucagon (Glucagen) 1 mg Q15M PRN IM DECREASED GLUCOSE; Start 06/10/16 at 23:30 Glucose (Glutose) 15 gm Q15M PRN BUCCAL DECREASED GLUCOSE; Start 06/10/16 at 23 :30 Calcium/Vitamin D (Oyster Shell/ Vit-D (500/200)) 2 tab BID PO Last administered on 06/18/16 21:14; Admin Dose 2 TAB; Start 06/11/16 at 21:00 Gabapentin (Neurontin) 300 mg TID PO Last administered on 06/18/16 21:14; Admin Dose 300 MG; Start 06/11/16 at 21:00 Multivitamins Therapeutic (Theragran) 1 tab DAILY PO Last administered on 08:20; Admin Dose 1 TAB; Start 06/12/16 at 09:00 Phenytoin 100 mg 100 mg HS PO Last administered on 06/18/16 21:14; Admin Dose 100 MG; Start 06/11/16 at 21:00 Sodium Chloride (1/2 NS) 1,000 ml @ 75 mls/hr [id number] IV Last administered on 06/18/16 12:03; Admin Dose 75 MLS/HR; Start 06/11/16 at 16:00 Pantoprazole (Protonix Tab) 40 mg DAILY@06 PO Last administered on 06/18/16 05 :13; Admin Dose 40 MG; Start 06/12/16 at 06:00 Benazepril HCl (Lotensin) 20 mg DAILY PO Last administered on 06/18/16 08:20; Admin Dose 20 MG; Start 06/13/16 at 09:00 Diphenhydramine HCl (Benadryl) 25 mg Q6H PRN PO ITCHING Last administered on 05:13; Admin Dose 25 MG; Start 06/12/16 at 17:30 Acetaminophen (Tylenol Tab) 650 mg DAILY PO Last administered on 06/15/16 08: 30; Admin Dose 650 MG; Start 06/13/16 at 09:00 Diphenhydramine HCl (Benadryl) 25 mg DAILY PO Last administered on 06/18/16 16 :42; Admin Dose 25 MG; Start 06/13/16 at 09:00 Tramadol HCl (Ultram) 50 mg Q6H PRN PO PAIN LEVEL 1-5 Last administered on 06/16 06:06; Admin Dose 50 MG; Start 06/12/16 at 18:30 Insulin Glargine (Lantus) 25 unit QHS SC Last administered on 06/18/16 21:17; Admin Dose 25 UNIT; Start 06/13/16 at 21:00 Atorvastatin Calcium 40 mg 40 mg HS PO Last administered on 06/18/16 21:14; Admin Dose 40 MG; Start 06/17/16 at 21:00 Vancomycin HCl/ Sodium Chloride (Vancocin/NS) 250 ml @ 83.333 mls/ hr Q12H IVPB Last administered on 06/18/16 16:41; Admin Dose 83.333 MLS/HR; Start at 17:00 IV Flush (NS 10 ml) 10 ml PRN PRN IV FLUSH LINE; Start 06/17/16 at 16:30 Miscellaneous Information (*Rx Drug Level Order Reminder*) VANCOMYCIN TROUGH AT 0400 ONCE ONCE XX ; Start 06/19/16 at 04:00; Stop 06/19/16 at 04:01 VINAYAK PRESTON NP Jun 18, 2016 21:44
[2016-06-19] MEDS: ACCU-CHEK XX SCH (02:32)
[2016-06-19 04:12] LABS: ADD SCAN DIFF NO
[2016-06-19 04:17] LABS: BASOPHILS % 0.6 % (0.0-2.0); EOSINOPHILS # 0.1 10^3/ul (0.0-0.5); EOSINOPHILS % 2.4 % (0.0-7.0); HEMATOCRIT 34.5 % (37.0-47.0); HEMOGLOBIN 11.8 g/dl (12.0-16.0); LYMPHOCYTES # 1.9 10^3/ul (0.8-2.9); LYMPHOCYTES % 40.3 % (15.0-51.0); MEAN CORPUSCULAR HEMOGLOBIN 30.8 pg (29.0-33.0); MEAN CORPUSCULAR HGB CONC 34.2 g/dl (32.0-37.0); MEAN CORPUSCULAR VOLUME 90.1 fl (82.0-101.0); MEAN PLATELET VOLUME 9.7 fl (7.4-10.4); MONOCYTE # 0.4 10^3/ul (0.3-0.9); MONOCYTES % 8.4 % (0.0-11.0); NEUTROPHIL # 2.2 10^3/ul (1.6-7.5); NEUTROPHILS % 47.9 % (39.0-77.0); PLATELET COUNT 173 10^3/UL (140-415); RED BLOOD COUNT 3.83 10^6/ul (4.20-5.40); RED CELL DISTRIBUTION WIDTH 12.2 % (11.5-14.5); WHITE BLOOD COUNT 4.7 10^3/ul (4.8-10.8)
[2016-06-19 04:33] LABS: CALCIUM 9.3 mg/dl (8.4-10.2); CREATININE 0.61 mg/dl (0.44-1.00); POTASSIUM 4.1 mmol/L (3.5-5.1)
[2016-06-19] MEDS: PANTOPRAZOLE (EC) 40 MG TAB PO SCH (05:16)
[2016-06-19] MEDS: VANCOMYCIN 1.25 GM in SOD CHLORIDE 0.9% 250 ML IVPB SCH ×2 (05:16→17:12)
[2016-06-19 07:28] VITALS: BP 119/72; RESP 16
[2016-06-19] MEDS: MULTIVITAMINS THERAPEUTIC TAB PO SCH (08:26)
[2016-06-19] MEDS: DIPHENHYDRAMINE 25 MG CAP PO SCH (08:26)
[2016-06-19] MEDS: CALCIUM/VITAMIN D (500/200) TAB PO SCH ×2 (08:26→20:47)
[2016-06-19] MEDS: GABAPENTIN 300 MG CAP PO SCH ×3 (08:26→20:47)
[2016-06-19] MEDS: BENAZEPRIL 20 MG TAB PO SCH (08:27)
[2016-06-19] MEDS: ACETAMINOPHEN 325 MG TAB PO SCH (08:27)
[2016-06-19] MEDS: HEPARIN 5,000 UNIT/0.5 ML VIAL SC SCH ×2 (08:28→20:56)
[2016-06-19] MEDS: INSULIN ASPART [NOVOLOG] 3 ML PEN SC SCH ×8 (08:29→21:38)
[2016-06-19] MEDS: SOD CHLORIDE 0.45% 1,000 ML IV SCH (09:05)
[2016-06-19] MEDS ORDERED: COLLAGENASE 30 GM TUBE TOP SCH (11:00)
--- NOTE | 2016-06-19 13:17 | RADRPT ---
PROCEDURE: US Lower extremity Venous. CLINICAL INDICATION: Vein mapping, pain, gangrene TECHNIQUE: Multiple sonographic images of the bilateral lower extremity superficial venous system was obtained utilizing grayscale, color-flow, compressive sonography and doppler imaging with augmen tation. The images were reviewed on a PACS workstation. COMPARISON: None. FINDINGS: Measurements from the great saphenous veins were obtained. Right great saphenous vein was divided into 8 segments with the first segment being more proximal in the 9th segment more distal. Measurements were obtained as below in mm. 1. 4.7 mm 2. 3.6 mm 3. 3.1 mm 4. 2.3 mm 5. 1.7 mm 6. 1.0 mm 7. 0.9 mm 8. 0.8 mm Left great saphenous vein was divided into 8 segments with the first segment being more proximal in the 9th segment more distal. Measurements were obtained as below in mm. 1. 3.1 mm 2. 1.7 mm 3. 1.4 mm 4. 1.0 mm 5. 0.9 mm 6. 2.3 mm 7. 1.8 mm 8. 1.6 mm . IMPRESSION: Bilateral greater saphenous vein mapping as described.. RPTAT: AA Physician Neil Date Time Electronically viewed and signed by Physician Neil on 06/19/2016 13:17 /
--- NOTE | 2016-06-19 14:03 | PDOCDIS ---
Discharge Instructions CONDITION Patient Condition: Good HOME CARE INSTRUCTIONS: Special Diet: 1800 ada ACTIVITY: Activity Restrictions: Slowly Increase Activity Rest between Activity Avoid heavy lifting Avoid Heavy Housework Keep Limb Elevated FOLLOW UP/APPOINTMENTS Appointments Follow up with PCP in 1-2 weeks Follow up with ID in 2-3 weeks REFERRALS Agency Name and Phone Number: [facility] RICCARDO GARY MD Jun 19, 2016 14:03
[2016-06-19] MEDS ORDERED: TRAM50TA2 PO (14:12)
[2016-06-19] MEDS ORDERED: Vancomycin Iv Per Pharmacy XX (14:12)
[2016-06-19] MEDS ORDERED: ATOR40TA68 PO (14:12)
[2016-06-19] MEDS ORDERED: PANT40TA4 PO (14:12)
[2016-06-19] MEDS ORDERED: BENA20TA48 PO (14:12)
[2016-06-19] MEDS ORDERED: LANT3I SC (14:12)
[2016-06-19] MEDS ORDERED: SITA1TAB5 PO (14:12)
--- NOTE | 2016-06-19 14:23 | PN ---
Date/Time of Note Date/Time of Note DATE: 06/19/16 TIME: 14:20 Assessment/Plan Lines/Catheters IV Catheter Type (from [facility]): PICC Line Ortega in Place (from [facility]): No Assessment/Plan Chief Complaint/Hosp Course -Bilateral lower extremity atherosclerosis and gangrene: It seems the patient has significant tissue loss and suggestion of osteomyelitis. At the moment, the patient did have noninvasive vascular studies that identified patient having monophasic flow, which significance of infrapopliteal disease is there. Would recommend for the patient to undergo angiogram and likely intervention this upcoming week as an outpatient -Optimize vascular status (BP meds, diet, nutrition, exercise, sugar control, antiplatelets). -Discussed the findings, plan and management with the patient and the patient's daughter and will plan to have the patient place a PICC line for treatment of the osteomyelitis. However, the patient will require further increased perfusion to the lower extremities. We will plan to schedule the patient for angio coming up this week. -Thank you for allowing us to partake in the care of your patient. Please call with any questions. Problems: Subjective 24 Hr Interval Summary no new vascular events overnight Exam/Review of Systems Vital Signs Vitals Vital Signs Date Time Temp Pulse Resp B/P Pulse Ox O2 Delivery O2 Flow Rate FiO2 06/19/16 07:28 98.3 87 16 119/72 100 06/17/16 20:00 Room Air Intake and Output 06/18/16 06/18/16 06/19/16 15:00 23:00 07:00 Intake Total 475 ml 1010 ml 1180 ml Balance 475 ml 1010 ml 1180 ml Exam Free Text/Dictation GENERAL: Alert, oriented x2, PULMONARY: Clear to auscultation bilaterally. CARDIOVASCULAR: S1, S2 present. s. ABDOMEN: Soft, nontender, nondistended. Bowel sounds positive. Truncal obesity. EXTREMITIES: Right lower extremity palpable femoral pulse, nonpalpable pedal pulse. Motor, sensory intact. Capillary refill 3 seconds. Third toe dry gangrene at the tip. Tender upon palpation and dependent rubor. Left lower extremity palpable femoral pulse, nonpalpable pedal pulse. Motor, sensory intact. Capillary refill 3 seconds. Left second toe gangrene. No drainage; however, tender upon palpation and dependent rubor. LUE: PICCintact Results Result Diagram: 06/19/16 0404 06/19/16 0404 NANCI AGUILAR MD Jun 19, 2016 14:23
[2016-06-19 19:34] VITALS: BP 120/61; RESP 20
[2016-06-19] MEDS: ATORVASTATIN 40 MG TAB PO SCH (20:46)
[2016-06-19] MEDS: PHENYTOIN 100 MG CAP PO SCH (20:46)
[2016-06-19] MEDS: INSULIN GLARGINE [LANtus] 3 ML PEN SC SCH (21:37)
[2016-06-20] MEDS: SOD CHLORIDE 0.45% 1,000 ML IV SCH ×2 (00:37→13:20)
[2016-06-20] MEDS: ACCU-CHEK XX SCH (02:00)
[2016-06-20] MEDS: PANTOPRAZOLE (EC) 40 MG TAB PO SCH (05:35)
[2016-06-20] MEDS: VANCOMYCIN 1.25 GM in SOD CHLORIDE 0.9% 250 ML IVPB SCH ×2 (05:35→17:18)
[2016-06-20 06:09] LABS: ADD SCAN DIFF NO
[2016-06-20 06:25] LABS: CALCIUM 9.2 mg/dl (8.4-10.2); CREATININE 0.66 mg/dl (0.44-1.00)
[2016-06-20 06:36] LABS: BASOPHILS % 0.6 % (0.0-2.0); EOSINOPHILS # 0.1 10^3/ul (0.0-0.5); EOSINOPHILS % 2.4 % (0.0-7.0); HEMATOCRIT 34.4 % (37.0-47.0); HEMOGLOBIN 11.5 g/dl (12.0-16.0); LYMPHOCYTES # 2.2 10^3/ul (0.8-2.9); LYMPHOCYTES % 42.7 % (15.0-51.0); MEAN CORPUSCULAR HEMOGLOBIN 30.3 pg (29.0-33.0); MEAN CORPUSCULAR HGB CONC 33.4 g/dl (32.0-37.0); MEAN CORPUSCULAR VOLUME 90.5 fl (82.0-101.0); MEAN PLATELET VOLUME 10.1 fl (7.4-10.4); MONOCYTE # 0.4 10^3/ul (0.3-0.9); MONOCYTES % 7.3 % (0.0-11.0); NEUTROPHIL # 2.4 10^3/ul (1.6-7.5); NEUTROPHILS % 46.6 % (39.0-77.0); PLATELET COUNT 163 10^3/UL (140-415); RED CELL DISTRIBUTION WIDTH 12.6 % (11.5-14.5); WHITE BLOOD COUNT 5.1 10^3/ul (4.8-10.8)
--- NOTE | 2016-06-20 07:13 | DS ---
DATE OF ADMISSION: 06/10/2016 DATE OF DISCHARGE: 06/19/2016 CONSULTANTS: 1. Dr. Maya Yanez 2. Dr. Gregg Lee 3. Dr. Ryan De Jesus 4. Dr. Juan A Hardin 5. Dr. Maximino San 6. Dr. Trace Almeida 7. Dr. Tyrell Del Cid DIAGNOSES: 1. 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 2. Escherichia coli urinary tract infection. 3. Poorly controlled diabetes mellitus. 4. Urinary tract infection. 5. Peripheral arterial disease. 6. Essential hypertension. 7. Diabetic neuropathy. 8. GERD. 9. Seizure disorder. 10. Dyslipidemia. MEDICATIONS: 1. Lipitor 40 mg. 2. Benazepril 20 mg. 3. Lantus 25 units. 4. Protonix 40 mg. 5. ____ 06/999. 6. Tramadol. 7. Vancomycin x7 weeks. 8. Calcium carbonate. 9. Gabapentin. 10. Multivitamin. 11. Phenytoin. ALLERGIES: NO KNOWN DRUG ALLERGIES. LABORATORY: WBC 4.7, hemoglobin 11.8, hematocrit 34.5, platelets 173. Sodium 138, potassium 4.1, c hloride 108, bicarbonate 27, BUN 17, creatinine 0.61, glucose 140, calcium 9.3. Triglycerides ____ total cholesterol 175, LDL 99, HDL 43. Hemoglobin A1c 11. HOSPITAL COURSE: This is a pleasant 75-year-old female with past medical history of dyslipidemia, d iabetes mellitus, diabetic neuropathy, diabetic peripheral vascular disease, seizure disorder, demen tia, peripheral arterial disease who was brought into emergency room by her daughter for worsening b ilateral toe wounds and swelling. The patient has been having problem for a while. The daughter st ated that recently had gotten worse, and she is upset that warehouse order puller has not been able to notify the primary care physician. The patient presented to the ER. The foot had purulent discharge draining from the left toe but had ulcer, swelling in the right 2nd toe which has been dry. The foot x-ray was done and read erosive changing of the right 3rd distal phalanx and the left 2nd distal phalanx c oncerning for osteomyelitis, and infectious disease doctor, orthopedic surgeon and Podiatry were con sulted. The patient was placed on broad spectrum IV antibiotic. WBC was found to be 4.7. We sent a urine culture, was found to be E. coli. The wound culture showed MRSA sensitive to vancomycin. B lood culture was found to be negative. The patient, as stated above, was seen and evaluated by Get [facility]uilar. MRI of the foot was obtained which showed questionable osteomyelitis of the distal phalanx of the right 3rd toe, soft-tissue defect at plantar aspect of the right 3rd toe, hallux valgus of the bunion, otherwise no acute process. The patient was continued on aggressive medical management. Ex tremity arterial showed monophasic waveforms bilaterally at posterior tibial, dorsal pedis arterial ____ indicating inflow disease in the lower leg, scattered calcified atherosclerosis throughout both lower extremities. The patient was placed on aggressive medical management, aspirin, statin. The blood pressure has been better controlled on medical management. 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 Her glipizide was placed on hold during the course of ho spitalization. Hemoglobin A1c was found to be 11. With Lantus of 25 units, the patient's blood glu cose has been better controlled. The patient also at this time has been placed on metformin and Jed uvia. The patient at this time has been able to tolerate p.o. intake, has been able to ambulate mod erately. Also ____ she will need a wheelchair for the next 6 to 8 weeks since patient will be on IV antibiotic as indicated and recommended by Infectious Disease. At this time, patient is medically stable to be discharged home with home health via IV antibiotic. CONDITION ON DISCHARGE: Stable. Dictated By: RICCARDO GARY MD PN/NTS Conf#: [id number] DID#: [id number]
[2016-06-20 07:29] VITALS: BP 108/59; RESP 18
[2016-06-20] MEDS: INSULIN ASPART [NOVOLOG] 3 ML PEN SC SCH ×8 (07:40→21:00)
[2016-06-20] MEDS: GABAPENTIN 300 MG CAP PO SCH ×3 (08:07→21:24)
[2016-06-20] MEDS: MULTIVITAMINS THERAPEUTIC TAB PO SCH (08:07)
[2016-06-20] MEDS: ACETAMINOPHEN 325 MG TAB PO SCH ×2 (08:07→18:15)
[2016-06-20] MEDS: CALCIUM/VITAMIN D (500/200) TAB PO SCH ×2 (08:07→21:24)
[2016-06-20] MEDS: DIPHENHYDRAMINE 25 MG CAP PO SCH (08:07)
[2016-06-20] MEDS: BENAZEPRIL 20 MG TAB PO SCH (08:08)
[2016-06-20] MEDS: HEPARIN 5,000 UNIT/0.5 ML VIAL SC SCH ×2 (08:11→21:29)
--- NOTE | 2016-06-20 14:13 | PN ---
Date/Time of Note Date/Time of Note DATE: 06/20/16 TIME: 14:10 Assessment/Plan VTE Prophylaxis VTE Prophylaxis Intervention: other Lines/Catheters IV Catheter Type (from Nrs): PICC Line Central line still needed: Yes Urinary Cath still in place: No Assessment/Plan Chief Complaint/Hosp Course Assessment and plan 1. 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 Continue vancomycin 2. Escherichia coli urinary tract infection. Status post IV antibiotics 3. Poorly controlled diabetes mellitus. Better controlled on lantus and ISS , Continue low carb diet 4. Dyslipidemia. Continue Statin 5. Peripheral arterial disease. Continue medical management 6. Essential hypertension. Well-controlled on medical management 7. Diabetic neuropathy. 8. GERD. 9. Seizure disorder. No new episodes, continue medical management We will continue monitor patient closely for recommendation of management in 3 months medical course Disposition: Discharge home with home health set up Problems: Subjective 24 Hr Interval Summary Free Text/Dictation Patient was planned to be discharged home with home health and IV antibiotics although unfortunately there was a change in her insurance status Patient denies of any chest pain or shortness of breath Minimal abdominal discomfort Tolerating oral intake without any difficulty Exam/Review of Systems Vital Signs Vitals Vital Signs Date Time Temp Pulse Resp B/P Pulse Ox O2 Delivery O2 Flow Rate FiO2 06/20/16 07:29 98.5 98 18 108/59 98 06/17/16 20:00 Room Air Intake and Output 06/19/16 06/19/16 06/20/16 15:00 23:00 07:00 Intake Total 350 ml 2260 ml 800 ml Balance 350 ml 2260 ml 800 ml Exam General: The patient is well-developed, Not in acute distress. HEENT: Atraumatic, normocephalic. The pupils are equal and round . Neck: Supple with full range of motion. Chest: Normal expansion of the thorax during inspiration Lungs: Clear to auscultation bilaterally Heart: Normal S1-S2, Regular rhythm and rate. Abdomen: Soft , nontender, nondistended , bowel sounds are present. Extremities: Bilateral foot deformities/Charcot foot, no edema no cyanosis, erythema and diabetic ulcer on the irizarry Neurologic: Normal mental status,The patient is awake, alert and oriented . Results Result Diagram: 06/20/16 0540 06/20/16 0540 Results 24 hrs Laboratory Tests Test 06/19/16 16:59 06/19/16 21:34 06/20/16 05:40 06/20/16 07:39 Bedside Glucose 184 136 130 White Blood Count 5.1 Red Blood Count 3.80 L Hemoglobin 11.5 L Hematocrit 34.4 L Mean Corpuscular Volume 90.5 Mean Corpuscular Hemoglobin 30.3 Mean Corpuscular Hemoglobin Concent 33.4 Red Cell Distribution Width 12.6 Platelet Count 163 Mean Platelet Volume 10.1 Neutrophils % 46.6 Lymphocytes % 42.7 Monocytes % 7.3 Eosinophils % 2.4 Basophils % 0.6 Nucleated Red Blood Cells % 0.0 Neutrophils # 2.4 Lymphocytes # 2.2 Monocytes # 0.4 Eosinophils # 0.1 Basophils # 0.0 Nucleated Red Blood Cells # 0.0 Sodium Level 140 Potassium Level 4.0 Chloride Level 109 Carbon Dioxide Level 25 Anion Gap 10 Blood Urea Nitrogen 17 Creatinine 0.66 Glucose Level 132 Calcium Level 9.2 Test 06/20/16 11:43 Bedside Glucose 200 Medications Medications Current Medications Hydralazine HCl (Apresoline) 10 mg Q4H PRN IV ELEVATED BLOOD PRESSURE; Start at 23:00 Morphine Sulfate (morphine) 3 mg Q4H PRN IV PAIN; Start 06/10/16 at 23:00 Acetaminophen (Tylenol Tab) 650 mg Q6H PRN PO PAIN AND OR ELEVATED TEMP; Start 06/10/16 at 23:00 Ondansetron HCl (Zofran Inj) 4 mg Q6H PRN IV NAUSEA AND/OR VOMITING; Start at 23:00 Heparin Sodium (Porcine) (Heparin (5000 Units/0.5 ml)) 5,000 unit Q12 SC Last administered on 06/20/16 08:11; Admin Dose 5,000 UNIT; Start 06/11/16 at 09:00 Diagnostic Test (Pha) (Accu-Chek) 1 ea 02 XX Last administered on 06/19/16 02: 32; Admin Dose 1 EA; Start 06/11/16 at 02:00 Miscellaneous Information 1 ea NOTE XX ; Start 06/10/16 at 23:30 Glucose (Glutose) 15 gm Q15M PRN PO DECREASED GLUCOSE; Start 06/10/16 at 23:30 Glucose (Glutose) 22.5 gm Q15M PRN PO DECREASED GLUCOSE; Start 06/10/16 at 23: 30 Dextrose (D50w Syringe) 25 ml Q15M PRN IV DECREASED GLUCOSE; Start 06/10/16 at 23:30 Dextrose (D50w Syringe) 50 ml Q15M PRN IV DECREASED GLUCOSE; Start 06/10/16 at 23:30 Glucagon (Glucagen) 1 mg Q15M PRN IM DECREASED GLUCOSE; Start 06/10/16 at 23:30 Glucose (Glutose) 15 gm Q15M PRN BUCCAL DECREASED GLUCOSE; Start 06/10/16 at 23 :30 Calcium/Vitamin D (Oyster Shell/ Vit-D (500/200)) 2 tab BID PO Last administered on 06/20/16 08:07; Admin Dose 2 TAB; Start 06/11/16 at 21:00 Gabapentin (Neurontin) 300 mg TID PO Last administered on 06/20/16 11:41; Admin Dose 300 MG; Start 06/11/16 at 21:00 Multivitamins Therapeutic (Theragran) 1 tab DAILY PO Last administered on 08:07; Admin Dose 1 TAB; Start 06/12/16 at 09:00 Phenytoin 100 mg 100 mg HS PO Last administered on 06/19/16 20:46; Admin Dose 100 MG; Start 06/11/16 at 21:00 Sodium Chloride (1/2 NS) 1,000 ml @ 75 mls/hr [id number] IV Last administered on 06/20/16 00:37; Admin Dose 75 MLS/HR; Start 06/11/16 at 16:00 Pantoprazole (Protonix Tab) 40 mg DAILY@06 PO Last administered on 06/20/16 05 :35; Admin Dose 40 MG; Start 06/12/16 at 06:00 Benazepril HCl (Lotensin) 20 mg DAILY PO Last administered on 06/19/16 08:27; Admin Dose 20 MG; Start 06/13/16 at 09:00 Diphenhydramine HCl (Benadryl) 25 mg Q6H PRN PO ITCHING Last administered on 05:13; Admin Dose 25 MG; Start 06/12/16 at 17:30 Acetaminophen (Tylenol Tab) 650 mg DAILY PO Last administered on 06/20/16 08: 07; Admin Dose 650 MG; Start 06/13/16 at 09:00 Diphenhydramine HCl (Benadryl) 25 mg DAILY PO Last administered on 06/20/16 08 :07; Admin Dose 25 MG; Start 06/13/16 at 09:00 Tramadol HCl (Ultram) 50 mg Q6H PRN PO PAIN LEVEL 1-5 Last administered on 06/16 06:06; Admin Dose 50 MG; Start 06/12/16 at 18:30 Insulin Glargine (Lantus) 25 unit QHS SC Last administered on 06/19/16 21:37; Admin Dose 25 UNIT; Start 06/13/16 at 21:00 Atorvastatin Calcium 40 mg 40 mg HS PO Last administered on 06/19/16 20:46; Admin Dose 40 MG; Start 06/17/16 at 21:00 Vancomycin HCl/ Sodium Chloride (Vancocin/NS) 250 ml @ 83.333 mls/ hr Q12H IVPB Last administered on 06/20/16 05:35; Admin Dose 83.333 MLS/HR; Start at 17:00 IV Flush (NS 10 ml) 10 ml PRN PRN IV FLUSH LINE; Start 06/17/16 at 16:30 RICCARDO GARY MD Jun 20, 2016 14:13
--- NOTE | 2016-06-20 18:20 | CONS ---
Date/Time of Note Date/Time of Note DATE: 06/20/16 TIME: 18:18 Consult Date/Type/Reason Admit Date/Time Jun 10, 2016 at 20:31 Initial Consult Date 06/13/16 Type of Consultation: Endovascular Intervention Objective Vital Signs Date Time Temp Pulse Resp B/P Pulse Ox O2 Delivery O2 Flow Rate FiO2 06/20/16 07:29 98.5 98 18 108/59 98 06/17/16 20:00 Room Air Intake and Output 06/19/16 06/19/16 06/20/16 15:00 23:00 07:00 Intake Total 350 ml 2260 ml 800 ml Balance 350 ml 2260 ml 800 ml Results/Medications Result Diagram: 06/20/16 0540 06/20/16 0540 Results 24 hrs Laboratory Tests Test 06/19/16 21:34 06/20/16 05:40 06/20/16 07:39 06/20/16 11:43 Bedside Glucose 136 130 200 White Blood Count 5.1 Red Blood Count 3.80 L Hemoglobin 11.5 L Hematocrit 34.4 L Mean Corpuscular Volume 90.5 Mean Corpuscular Hemoglobin 30.3 Mean Corpuscular Hemoglobin Concent 33.4 Red Cell Distribution Width 12.6 Platelet Count 163 Mean Platelet Volume 10.1 Neutrophils % 46.6 Lymphocytes % 42.7 Monocytes % 7.3 Eosinophils % 2.4 Basophils % 0.6 Nucleated Red Blood Cells % 0.0 Neutrophils # 2.4 Lymphocytes # 2.2 Monocytes # 0.4 Eosinophils # 0.1 Basophils # 0.0 Nucleated Red Blood Cells # 0.0 Sodium Level 140 Potassium Level 4.0 Chloride Level 109 Carbon Dioxide Level 25 Anion Gap 10 Blood Urea Nitrogen 17 Creatinine 0.66 Glucose Level 132 Calcium Level 9.2 Test 06/20/16 17:20 Bedside Glucose 144 Medications Current Medications Hydralazine HCl (Apresoline) 10 mg Q4H PRN IV ELEVATED BLOOD PRESSURE; Start at 23:00 Morphine Sulfate (morphine) 3 mg Q4H PRN IV PAIN; Start 06/10/16 at 23:00 Acetaminophen (Tylenol Tab) 650 mg Q6H PRN PO PAIN AND OR ELEVATED TEMP; Start 06/10/16 at 23:00 Ondansetron HCl (Zofran Inj) 4 mg Q6H PRN IV NAUSEA AND/OR VOMITING; Start at 23:00 Heparin Sodium (Porcine) (Heparin (5000 Units/0.5 ml)) 5,000 unit Q12 SC Last administered on 06/20/16 08:11; Admin Dose 5,000 UNIT; Start 06/11/16 at 09:00 Diagnostic Test (Pha) (Accu-Chek) 1 ea 02 XX Last administered on 06/19/16 02: 32; Admin Dose 1 EA; Start 06/11/16 at 02:00 Miscellaneous Information 1 ea NOTE XX ; Start 06/10/16 at 23:30 Glucose (Glutose) 15 gm Q15M PRN PO DECREASED GLUCOSE; Start 06/10/16 at 23:30 Glucose (Glutose) 22.5 gm Q15M PRN PO DECREASED GLUCOSE; Start 06/10/16 at 23: 30 Dextrose (D50w Syringe) 25 ml Q15M PRN IV DECREASED GLUCOSE; Start 06/10/16 at 23:30 Dextrose (D50w Syringe) 50 ml Q15M PRN IV DECREASED GLUCOSE; Start 06/10/16 at 23:30 Glucagon (Glucagen) 1 mg Q15M PRN IM DECREASED GLUCOSE; Start 06/10/16 at 23:30 Glucose (Glutose) 15 gm Q15M PRN BUCCAL DECREASED GLUCOSE; Start 06/10/16 at 23 :30 Calcium/Vitamin D (Oyster Shell/ Vit-D (500/200)) 2 tab BID PO Last administered on 06/20/16 08:07; Admin Dose 2 TAB; Start 06/11/16 at 21:00 Gabapentin (Neurontin) 300 mg TID PO Last administered on 06/20/16 11:41; Admin Dose 300 MG; Start 06/11/16 at 21:00 Multivitamins Therapeutic (Theragran) 1 tab DAILY PO Last administered on 08:07; Admin Dose 1 TAB; Start 06/12/16 at 09:00 Phenytoin 100 mg 100 mg HS PO Last administered on 06/19/16 20:46; Admin Dose 100 MG; Start 06/11/16 at 21:00 Sodium Chloride (1/2 NS) 1,000 ml @ 75 mls/hr [id number] IV Last administered on 06/20/16 00:37; Admin Dose 75 MLS/HR; Start 06/11/16 at 16:00 Pantoprazole (Protonix Tab) 40 mg DAILY@06 PO Last administered on 06/20/16 05 :35; Admin Dose 40 MG; Start 06/12/16 at 06:00 Benazepril HCl (Lotensin) 20 mg DAILY PO Last administered on 06/19/16 08:27; Admin Dose 20 MG; Start 06/13/16 at 09:00 Diphenhydramine HCl (Benadryl) 25 mg Q6H PRN PO ITCHING Last administered on 05:13; Admin Dose 25 MG; Start 06/12/16 at 17:30 Acetaminophen (Tylenol Tab) 650 mg DAILY PO Last administered on 06/20/16 18: 15; Admin Dose 650 MG; Start 06/13/16 at 09:00 Diphenhydramine HCl (Benadryl) 25 mg DAILY PO Last administered on 06/20/16 08 :07; Admin Dose 25 MG; Start 06/13/16 at 09:00 Tramadol HCl (Ultram) 50 mg Q6H PRN PO PAIN LEVEL 1-5 Last administered on 06/16 06:06; Admin Dose 50 MG; Start 06/12/16 at 18:30 Insulin Glargine (Lantus) 25 unit QHS SC Last administered on 06/19/16 21:37; Admin Dose 25 UNIT; Start 06/13/16 at 21:00 Atorvastatin Calcium 40 mg 40 mg HS PO Last administered on 06/19/16 20:46; Admin Dose 40 MG; Start 06/17/16 at 21:00 Vancomycin HCl/ Sodium Chloride (Vancocin/NS) 250 ml @ 83.333 mls/ hr Q12H IVPB Last administered on 06/20/16 17:18; Admin Dose 83.333 MLS/HR; Start at 17:00 IV Flush (NS 10 ml) 10 ml PRN PRN IV FLUSH LINE; Start 06/17/16 at 16:30 Miscellaneous Information (*Rx Drug Level Order Reminder*) VANCO TROUGH @ 0, 400 ON... ONCE ONCE XX ; Start 06/21/16 at 04:00; Stop 06/21/16 at 04:01 Assessment/Plan Chief Complaint/Hosp Course Patient is 75 year old F with PMH of HTN, HLD, DM, CAD, Arthristis, who came in to ER brought in by araseli with left second toe ulcer. dry, painful. r/o osteo on abx Problems: Additional Assessment/Plan PAD with dry gangrene and otesomyelitis pt will need possible amputaiton. abx Has below the knee disease and I will plan to have angiogram done before amputation as out pt. Dr Govind Miller is vascular surgery on case if needed for bypass surgery I will consult him. D/W primary chemical research engineer as well. zia /FLORINDA Krause MD Jun 20, 2016 18:20
[2016-06-20] MEDS: traMADol 50 MG TAB PO PRN (18:48)
[2016-06-20 19:51] VITALS: BP 134/61; RESP 18
--- NOTE | 2016-06-20 20:06 | CONS ---
Date/Time of Note Date/Time of Note DATE: 06/20/16 TIME: 20:03 Assessment/Plan Assessment/Plan Chief Complaint/Hosp Course ID PROGRESS NOTE TOTAL ABX DAY # =>Vanco IV s/p Ceftriaxone 24H INTERVAL SUMMARY * A/A/O -- ready to DC home tonight -- she is completing current IV Vanco dose administration then will be returning home with IV ABX set up * No questions, feels well, no new issues, she is smiling, coping well, agrees with plan of care PHYSICAL EXAMINATION: GENERAL: VSS,NAD, no fevers HEENT: Unremarkable NECK: Supple, trach-> midline CHEST: Equal chest rise bilaterally, without dyspnea on observation HEART: Pulse RRR ABDOMEN: Soft, benign EXTREMITIES: Warm, necrotic wounds on her toes bilaterally. SKIN: Warm, dry ID ASSESSMENT: 75 yo F w/PMHx Obesity admitted with: 1. Bilateral foot cellulitis with osteomyelitis of the left 2nd toe and right 3rd toe =>(+)MRSA 2. Urinary tract infection=> s/p Ceftriaxone 3. Diabetes w/ suspected complications of DM Poly/Peripheral neuropathy 4. Peripheral arterial disease. (-)MRSA NARES INVASIVES: * PIV ABX ALLERGIES: KNDA CURRENT ABX: DAY # Vanco IV s/p Ceftriaxone ID RECOMMENDATIONS: 1. When cleared by primary provider -> DC home with HH RN Vanco IV x 7 weeks for total 8 weeks per IDSA Guidelines MRSA Osteomyelitis CASE MANAGEMENT DC ABX ORDER PLACED Indication: Bilateral foot cellulitis with osteomyelitis of the left 2nd toe and right 3rd toe =>(+)MRSA BASELINE STATS: WT: 81.5 kg, S.Creatinine 0.63 TOTAL ABX COURSE: 56 Days => Last day 08/06/16 VANCO IV HX: Vanco IV 1st dose initiated 06/10/16 PM, Vanco Trough 06/14/16 0645 =9.1, Vanco Trough 06/16/16 1320 =10.6 Vanco dose increased to: Vanco IV 1.25GM Q12H on 1700 dose * HH RN to draw BUN/S.Creatinine approximately 1330- 1430 prior to 06/18/16 1700 dose, with results called to OP Pharmacist for continued OP Vanco IV dosing Problems: Consultation Date/Type/Reason Admit Date/Time Jun 10, 2016 at 20:31 Initial Consult Date 06/12/16 Type of Consultation: ID Exam/Review of Systems Vital Signs Vitals Vital Signs Date Time Temp Pulse Resp B/P Pulse Ox O2 Delivery O2 Flow Rate FiO2 06/20/16 19:51 98.0 85 18 134/61 98 06/17/16 20:00 Room Air Intake and Output 06/19/16 06/19/16 06/20/16 15:00 23:00 07:00 Intake Total 350 ml 2260 ml 800 ml Balance 350 ml 2260 ml 800 ml Results Result Diagram: 06/20/16 0540 06/20/16 0540 Results 24 hrs Laboratory Tests Test 06/19/16 21:34 06/20/16 05:40 06/20/16 07:39 06/20/16 11:43 Bedside Glucose 136 130 200 White Blood Count 5.1 Red Blood Count 3.80 L Hemoglobin 11.5 L Hematocrit 34.4 L Mean Corpuscular Volume 90.5 Mean Corpuscular Hemoglobin 30.3 Mean Corpuscular Hemoglobin Concent 33.4 Red Cell Distribution Width 12.6 Platelet Count 163 Mean Platelet Volume 10.1 Neutrophils % 46.6 Lymphocytes % 42.7 Monocytes % 7.3 Eosinophils % 2.4 Basophils % 0.6 Nucleated Red Blood Cells % 0.0 Neutrophils # 2.4 Lymphocytes # 2.2 Monocytes # 0.4 Eosinophils # 0.1 Basophils # 0.0 Nucleated Red Blood Cells # 0.0 Sodium Level 140 Potassium Level 4.0 Chloride Level 109 Carbon Dioxide Level 25 Anion Gap 10 Blood Urea Nitrogen 17 Creatinine 0.66 Glucose Level 132 Calcium Level 9.2 Test 06/20/16 17:20 Bedside Glucose 144 Medications Medications Current Medications Hydralazine HCl (Apresoline) 10 mg Q4H PRN IV ELEVATED BLOOD PRESSURE; Start at 23:00 Morphine Sulfate (morphine) 3 mg Q4H PRN IV PAIN; Start 06/10/16 at 23:00 Acetaminophen (Tylenol Tab) 650 mg Q6H PRN PO PAIN AND OR ELEVATED TEMP; Start 06/10/16 at 23:00 Ondansetron HCl (Zofran Inj) 4 mg Q6H PRN IV NAUSEA AND/OR VOMITING; Start at 23:00 Heparin Sodium (Porcine) (Heparin (5000 Units/0.5 ml)) 5,000 unit Q12 SC Last administered on 06/20/16 08:11; Admin Dose 5,000 UNIT; Start 06/11/16 at 09:00 Diagnostic Test (Pha) (Accu-Chek) 1 ea 02 XX Last administered on 06/19/16 02: 32; Admin Dose 1 EA; Start 06/11/16 at 02:00 Miscellaneous Information 1 ea NOTE XX ; Start 06/10/16 at 23:30 Glucose (Glutose) 15 gm Q15M PRN PO DECREASED GLUCOSE; Start 06/10/16 at 23:30 Glucose (Glutose) 22.5 gm Q15M PRN PO DECREASED GLUCOSE; Start 06/10/16 at 23: 30 Dextrose (D50w Syringe) 25 ml Q15M PRN IV DECREASED GLUCOSE; Start 06/10/16 at 23:30 Dextrose (D50w Syringe) 50 ml Q15M PRN IV DECREASED GLUCOSE; Start 06/10/16 at 23:30 Glucagon (Glucagen) 1 mg Q15M PRN IM DECREASED GLUCOSE; Start 06/10/16 at 23:30 Glucose (Glutose) 15 gm Q15M PRN BUCCAL DECREASED GLUCOSE; Start 06/10/16 at 23 :30 Calcium/Vitamin D (Oyster Shell/ Vit-D (500/200)) 2 tab BID PO Last administered on 06/20/16 08:07; Admin Dose 2 TAB; Start 06/11/16 at 21:00 Gabapentin (Neurontin) 300 mg TID PO Last administered on 06/20/16 11:41; Admin Dose 300 MG; Start 06/11/16 at 21:00 Multivitamins Therapeutic (Theragran) 1 tab DAILY PO Last administered on 08:07; Admin Dose 1 TAB; Start 06/12/16 at 09:00 Phenytoin 100 mg 100 mg HS PO Last administered on 06/19/16 20:46; Admin Dose 100 MG; Start 06/11/16 at 21:00 Sodium Chloride (1/2 NS) 1,000 ml @ 75 mls/hr [id number] IV Last administered on 06/20/16 00:37; Admin Dose 75 MLS/HR; Start 06/11/16 at 16:00 Pantoprazole (Protonix Tab) 40 mg DAILY@06 PO Last administered on 06/20/16 05 :35; Admin Dose 40 MG; Start 06/12/16 at 06:00 Benazepril HCl (Lotensin) 20 mg DAILY PO Last administered on 06/19/16 08:27; Admin Dose 20 MG; Start 06/13/16 at 09:00 Diphenhydramine HCl (Benadryl) 25 mg Q6H PRN PO ITCHING Last administered on 05:13; Admin Dose 25 MG; Start 06/12/16 at 17:30 Acetaminophen (Tylenol Tab) 650 mg DAILY PO Last administered on 06/20/16 18: 15; Admin Dose 650 MG; Start 06/13/16 at 09:00 Diphenhydramine HCl (Benadryl) 25 mg DAILY PO Last administered on 06/20/16 08 :07; Admin Dose 25 MG; Start 06/13/16 at 09:00 Tramadol HCl (Ultram) 50 mg Q6H PRN PO PAIN LEVEL 1-5 Last administered on 06/20 18:48; Admin Dose 50 MG; Start 06/12/16 at 18:30 Insulin Glargine (Lantus) 25 unit QHS SC Last administered on 06/19/16 21:37; Admin Dose 25 UNIT; Start 06/13/16 at 21:00 Atorvastatin Calcium 40 mg 40 mg HS PO Last administered on 06/19/16 20:46; Admin Dose 40 MG; Start 06/17/16 at 21:00 Vancomycin HCl/ Sodium Chloride (Vancocin/NS) 250 ml @ 83.333 mls/ hr Q12H IVPB Last administered on 06/20/16 17:18; Admin Dose 83.333 MLS/HR; Start at 17:00 IV Flush (NS 10 ml) 10 ml PRN PRN IV FLUSH LINE; Start 06/17/16 at 16:30 Miscellaneous Information (*Rx Drug Level Order Reminder*) VANCO TROUGH @ 0, 400 ON... ONCE ONCE XX ; Start 06/21/16 at 04:00; Stop 06/21/16 at 04:01 VINAYAK PRESTON NP Jun 20, 2016 20:06
[2016-06-20] MEDS: PHENYTOIN 100 MG CAP PO SCH (21:24)
[2016-06-20] MEDS: ATORVASTATIN 40 MG TAB PO SCH (21:24)
[2016-06-20] MEDS ORDERED: INSULIN ASPART [NOVOLOG] 3 ML PEN SC ONE (22:00)
[2016-06-20] MEDS: INSULIN GLARGINE [LANtus] 3 ML PEN SC SCH (22:14)
[2016-06-20] MEDS ORDERED: COLLAGENASE 30 GM TUBE TOP SCH (22:30)
--- NOTE | 2016-06-21 06:38 | CONS ---
DATE OF ADMISSION: 06/10/2016 DATE OF CONSULTATION: SUBJECTIVE FINDINGS: The patient is being followed for bilateral foot ulcerations. PICC line place d and recommended IV antibiotics for osteomyelitis. The patient had debridement with cultures obtai endy and positive for MRSA. The patient recommended outpatient followup with Dr. San. The patient is pending discharge to home. OBJECTIVE FINDINGS: VITAL SIGNS: Temperature 98, pulse is 85, respiratory 18, blood pressure 134/61, pulse ox is 98%. GENERAL: The patient is alert, oriented, in no acute distress, lying supine. HEENT: Head is normocephalic, atraumatic. Trachea is midline. PULMONARY: Regular respiration. EXTREMITIES: Patient with warm extremities. SKIN: Dry. No signs of decubitus ulceration, dystrophic nails. There is improved appearance to th e right third toe. Left second toe with persistent eschar, pain with palpation. The eschar is dry. No visible cellulitis, lymphangitis. No tender popliteal lymph nodes. DIAGNOSTIC DATA: Cultures are positive for MRSA, both feet. Vein mapping performed which reveals r ight greater saphenous vein 4.7 mm mm in diameter; left greater saphenous vein from 3.1 mm to 1.6 mm. Arterial ultrasound, monophasic waveforms, bilateral posterior tibial and dorsalis pedis ar teries, scattered calcified atherosclerosis throughout both lower extremities. ABIs not performed. Labs: WBC 5.1, hemoglobin 11.5, hematocrit 34.4, platelets 163. Sodium 140, potassium 4, chloride 109, CO2 25, BUN 17, creatinine 0.66. ASSESSMENT: 1. Bilateral feet cellulitis with osteomyelitis, left second toe, left third toe with positive Meth icillin-resistant Staphylococcus aureus. 2. Urinary tract infection. 3. Diabetes type 2. 4. Peripheral arterial disease. PLAN: The patient is pending discharge. PICC line placed. IV antibiotic recommended 6 to 8 weeks. The patient is status post debridement and improved appearance, at risk for amputation. We will f ollow up as an outpatient and patient also has scheduled outpatient appointment with Dr. San. Haily ent at risk for amputation. The patient refusing amputation at this time. The patient has a postop erative shoe, recommend use to offload the ulcerations. Also recommend initiating use of Santyl for enzymatic debridement of the eschars. Dictated By: JOVANNA VILCHIS DPM RB/NTS Conf#: [id number] DID#: [id number] CC: YANNICK WINSTON MD;*End*
== END 2016-06-20 23:20 | disposition home health service (06) | DRG 623 ==
LOC: FTE 13:27 → MS2 20:31
PROVIDERS: ADMIT Internal Medicine; ATTEND Internal Medicine
PROC: 0JBR0ZZ Excision of Left Foot Subcutaneous Tissue and Fascia, Open Approach (ICD-10-PCS; principal; 2016-06-12)
PROC: 0JBQ0ZZ Excision of Right Foot Subcutaneous Tissue and Fascia, Open Approach (ICD-10-PCS; 2016-06-12)
PROC: 02HV33Z Insertion of Infusion Device into Superior Vena Cava, Percutaneous Approach (ICD-10-PCS; 2016-06-17)
PROC: B548ZZA Ultrasonography of Superior Vena Cava, Guidance (ICD-10-PCS; 2016-06-17)
DX: E11.69 Type 2 diabetes mellitus with other specified complication (principal); M86.171 Other acute osteomyelitis, right ankle and foot; M86.172 Other acute osteomyelitis, left ankle and foot; E87.2 Acidosis; E11.52 Type 2 diabetes mellitus with diabetic peripheral angiopathy with gangrene; E11.621 Type 2 diabetes mellitus with foot ulcer; F03.90 Unspecified dementia, unspecified severity, without behavioral disturbance, psychotic disturbance, mood disturbance, and anxiety; L03.115 Cellulitis of right lower limb; E11.40 Type 2 diabetes mellitus with diabetic neuropathy, unspecified; N39.0 Urinary tract infection, site not specified; L03.116 Cellulitis of left lower limb; B96.20 Unspecified Escherichia coli [E. coli] as the cause of diseases classified elsewhere; E78.5 Hyperlipidemia, unspecified; E11.65 Type 2 diabetes mellitus with hyperglycemia; G40.909 Epilepsy, unspecified, not intractable, without status epilepticus; I10 Essential (primary) hypertension; E78.00 Pure hypercholesterolemia, unspecified; L97.522 Non-pressure chronic ulcer of other part of left foot with fat layer exposed; L97.511 Non-pressure chronic ulcer of other part of right foot limited to breakdown of skin; K21.9 Gastro-esophageal reflux disease without esophagitis; B95.62 Methicillin resistant Staphylococcus aureus infection as the cause of diseases classified elsewhere; I25.10 Atherosclerotic heart disease of native coronary artery without angina pectoris
CPT/HCPCS: 36415; 36569; 71010; 73610; 73718; 76937; 80048; 80053; 80061; 80202; 81001; 81003; 82947; 82962; 83036; 83605; 83735; 84100; 84484; 85025; 85610; 85651; 85730; 87040; 87070; 87081; 87086; 93005; 93306; 93922; 93970; 96365; 96366; 96375; 97162; C1769; J0692; J0696; J1644; J1815; J2270; J2543; J3370; J3475; J7030; J7050

== ENCOUNTER 2016-06-28 12:52 | Emergency (ER) | payer MEDICARE, MEDICAID ==
[~2016-06-28] VITALS: Ht 162.6 cm; Wt 85.0 kg
[~2016-06-28 12:52] MED LIST changes: -ALBUTEROL; +ATOR40TA68 PO; +BENA20TA48 PO; -BENAZEPRIL; -GLYBURIDE; -IBUP800T25 PO; +LANT3I SC; -LORATADINE; +PANT40TA4 PO; -SIMVASTATIN; +SITA1TAB5 PO; -SITA1TAB7 PO; +TRAM50TA2 PO; +Vancomycin Iv Per Pharmacy XX; -ZOC10 PO
[2016-06-28 12:55] VITALS: Ht 162.6 cm; Wt 85.0 kg
[2016-06-28] MEDS ORDERED: ALTEPLASE (CATHFLO) 2 MG INJ CATHETER PRN (15:00)
--- NOTE | 2016-06-28 15:10 | ERD ---
ER Documentation Chief Complaint Date/Time DATE: 06/28/16 TIME: 15:09 Chief Complaint picc line not working HPI This is a 75-year-old female who is sent here for a clotted PICC line. The patient is a left upper extremity PICC line has been placed for antibiotic use. The patient has not had the PICC line use yet. She states that she has infection but she does know where. Says she has not been febrile. She went to her doctor's office to start antibiotics today but they were unable to use the PICC line and they could not flush it.. No swelling no redness ROS All systems reviewed and are negative except as per history of present illness. Medications Home Meds Active Scripts Sitagliptin Phos/Metformin HCl (Janumet 50-1,000 mg Tablet) 1 Each Tablet, 1 EACH PO BID, #60 TAB Prov:RICCARDO GARY MD 06/19/16 Insulin Glargine* (Lantus*) 100 Unit/Ml Soln, 25 UNIT SC QHS for 30 Days Prov:RICCARDO GARY MD 06/19/16 Pantoprazole* (Pantoprazole*) 40 Mg Tablet.dr, 40 MG PO DAILY@06 for 30 Days Prov:RICCARDO GARY MD 06/19/16 Tramadol HCl (Tramadol HCl) 50 Mg Tablet, 50 MG PO Q6H Y for PAIN LEVEL 1-5, #1 TAB Prov:RICCARDO GARY MD 06/19/16 Benazepril Hcl* (Benazepril Hcl*) 20 Mg Tablet, 20 MG PO DAILY for 30 Days, TAB Prov:RICCARDO GARY MD 06/19/16 Atorvastatin* (Atorvastatin*) 40 Mg Tablet, 40 MG PO HS, #30 TAB Prov:RICCARDO GARY MD 06/19/16 [Vancomycin Iv Per Pharmacy] 1 EA EACH No Conflict Check, 0 EA XX .PER PROTOCOL for 50 Days Prov:RICCARDO GARY MD 06/19/16 Reported Medications Calcium Carbonate/Vitamin D3 (Oysco 500+D Tablet) 1 Tab Tablet, 2 TAB PO BID 09/06/10 Gabapentin* (Neurontin*) 300 Mg Capsule, 300 MG PO TID 09/05/10 Multivitamins* (Multivitamins*) 1 Tab Tablet, 1 TAB PO DAILY 09/05/10 Phenytoin* Sodium Extended (Dilantin*) 100 Mg Capsule, 100 MG PO HS 09/05/10 Allergies Allergies: Coded Allergies: No Known Drug Allergies (Verified Allergy, Mild, 06/10/16) No Known Drug Allergy (Verified Allergy, Mild, 06/10/16) PMhx/Soc History of Surgery: No (back surgery, , hysterectomy) Anesthesia Reaction: No Hx Neurological Disorder: Yes Hx Respiratory Disorders: No Hx Cardiac Disorders: No Hx Psychiatric Problems: Yes (DEMENTIA) Hx Miscellaneous Medical Probl: Yes (DM, dementia, seizure, back surgery) Hx Alcohol Use: No Hx Substance Use: No Hx Tobacco Use: No FmHx Family History: No coronary disease Physical Exam Vitals Vital Signs Date Time Temp Pulse Resp B/P Pulse Ox O2 Delivery O2 Flow Rate FiO2 06/28/16 12:55 98.2 82 18 131/70 99 Physical Exam Const: Well-developed, well-nourished Head: Atraumatic, normocephalic Eyes: Normal Conjunctiva, PERRLA, EOMI, normal sclera, no nystagmus ENT: Normal External Ears, Nose and Mouth, moist mucus membranes. Neck: Full range of motion. No meningismus, no lymphadenopathy. Resp: Clear to auscultation bilaterally, no wheezing, rhonchi, rales Cardio: Regular rate and rhythm, no murmurs, S1 S2 present Abd: Soft, non tender x 4, non distended. Normal bowel sounds, no guarding or rebound, no pulsitile abdominal masses or bruits Skin: No petechiae or rashes, no ecchymosis , no maculopapular rash Back: No midline or flank tenderness Ext: No cyanosis, or edema, FROM x 4, normal inspection, neurovascularly intact x 4, left upper extremity PICC line is in place with no erythema no swelling of the hand. Neur: Awake and alert, STR 5/5 x 4, sensation intact x 4, no focal findings, cerebellum intact Psych: Normal Mood and Affect Results 24 hrs Current Medications Medications (Trade) Dose Ordered Sig/Shavon Route PRN Reason Start Time Stop Time Status Last Admin Dose Admin Alteplase, Recombinant (Cathflo (Activase)) 2 mg MAY REPEAT X1 PRN CATHETER IF CATHETER REMAINS OCCULUDED 06/28/16 15:00 06/28/16 14:58 Procedures/MDM The ports of the PICC line were flushed successfully with alteplase PICC line is working on discharge Departure Diagnosis: Primary Impression: Occluded PICC line Encounter type: initial encounter Qualified Code: T82.898A - Occluded PICC line, initial encounter Condition: Stable Patient Instructions: Picc Line Care CAR UMANZOR DO June 28, 2016 15:10
[2016-06-28 15:21] VITALS: BP 136/67; PULSE 81; RESP 20; TEMP 98
== END 2016-06-28 15:22 | disposition home or self-care (01) ==
LOC: E/R 12:52
DX: T82.898A Other specified complication of vascular prosthetic devices, implants and grafts, initial encounter (principal); E11.9 Type 2 diabetes mellitus without complications; Y82.8 Other medical devices associated with adverse incidents; Z79.4 Long term (current) use of insulin; Z79.84 Long term (current) use of oral hypoglycemic drugs
CPT/HCPCS: 99282

== ENCOUNTER 2016-07-06 16:20 | Inpatient (IN) | payer MEDICARE, MEDICAID ==
[~2016-07-06] VITALS: Ht 154.9 cm; Wt 79.8 kg
[2016-07-06] MEDS ORDERED: VANCOMYCIN 1 GM (PMX) 250 ML IVPB STA (17:33)
[2016-07-06] MEDS ORDERED: PIPER-TAZO 3.375 GM IV (PMX) 100 ML IVPB STA (17:33)
[2016-07-06] MEDS ORDERED: SODIUM CHLORIDE 0.9% 1L BAG IV* STA (17:33)
[2016-07-06] MEDS ORDERED: ACETAMINOPHEN 325 MG TAB PO PRN ×2 (18:00→20:30)
[2016-07-06] MEDS ORDERED: ONDANSETRON 4 MG INJ IV PRN ×2 (18:00→20:30)
[2016-07-06 18:09] LABS: ADD SCAN DIFF NO
[2016-07-06 18:12] LABS: BASOPHILS % 0.4 % (0.0-2.0); EOSINOPHILS # 0.1 10^3/ul (0.0-0.5); EOSINOPHILS % 2.2 % (0.0-7.0); HEMATOCRIT 36.6 % (37.0-47.0); HEMOGLOBIN 12.5 g/dl (12.0-16.0); LYMPHOCYTES # 1.9 10^3/ul (0.8-2.9); LYMPHOCYTES % 34.8 % (15.0-51.0); MEAN CORPUSCULAR HEMOGLOBIN 30.2 pg (29.0-33.0); MEAN CORPUSCULAR HGB CONC 34.2 g/dl (32.0-37.0); MEAN CORPUSCULAR VOLUME 88.4 fl (82.0-101.0); MEAN PLATELET VOLUME 9.8 fl (7.4-10.4); MONOCYTE # 0.4 10^3/ul (0.3-0.9); MONOCYTES % 7.8 % (0.0-11.0); NEUTROPHIL # 2.9 10^3/ul (1.6-7.5); NEUTROPHILS % 54.4 % (39.0-77.0); PLATELET COUNT 210 10^3/UL (140-415); RED BLOOD COUNT 4.14 10^6/ul (4.20-5.40); RED CELL DISTRIBUTION WIDTH 12.3 % (11.5-14.5); WHITE BLOOD COUNT 5.4 10^3/ul (4.8-10.8)
[2016-07-06 18:28] LABS: ALBUMIN 4.6 g/dl (3.3-4.9); INR 0.97; PROTIME 12.9 Sec (12.2-14.2)
[2016-07-06 18:29] LABS: CHLORIDE 97 mmol/L (97-110); PARTIAL THROMBOPLASTIN TIME 27.8 Sec (25.0-35.0); POTASSIUM 3.9 mmol/L (3.5-5.1); SODIUM 136 mmol/L (135-144)
[2016-07-06 18:31] LABS: ALKALINE PHOSPHATASE 101 IU/L (42-121); ANION GAP 21 (8-16); ASPARTATE AMINO TRANSFERASE 22 IU/L (15-46); BILIRUBIN,INDIRECT 0.2 mg/dl (0-1.1); BILIRUBIN,TOTAL 0.2 mg/dl (0.2-1.3); CARBON DIOXIDE 22 mmol/L (21-31); CREATININE 0.66 mg/dl (0.44-1.00); TOTAL PROTEIN 8.5 g/dl (6.1-8.1)
[2016-07-06 18:32] LABS: ALANINE AMINOTRANSFERASE 25 IU/L (13-69); BLOOD UREA NITROGEN 11 mg/dl (7-20); CALCIUM 9.7 mg/dl (8.4-10.2); GLUCOSE 307 mg/dl (70-220)
[2016-07-06 18:37] LABS: ALBUMIN/GLOBULIN RATIO 1.17
[2016-07-06 18:44] LABS: TROPONIN-I < 0.012 ng/ml (0.00-0.12)
--- NOTE | 2016-07-06 18:45 | RADRPT ---
PROCEDURE: XR Chest. CLINICAL INDICATION: Possible sepsis. TECHNIQUE: Single frontal view of the chest. COMPARISON: 04/15/2009. FINDINGS: Left central venous line in place with tip in superior vena cava. Cardiomegaly and atherosclerotic calcifications in the thoracic aorta. Elevated left hemidiaphragm with atelectasis and possible sup erimposed airspace disease at left lung base. Right lung is clear. No signs of pleural fluid or pne umothorax are seen. The osseous structures and soft tissues are unremarkable. IMPRESSION: Atelectasis with possible superimposed airspace disease at the left lung base. RPTAT: [facility]U Physician Janay Date Time Electronically viewed and signed by Physician Janay on 07/06/2016 18:45 RS/
--- NOTE | 2016-07-06 18:48 | RADRPT ---
PROCEDURE: X-ray left foot CLINICAL INDICATION: Left foot pain. Possible sepsis. TECHNIQUE: 3 views left foot. COMPARISON: MRI left foot dated 06/11/2016. FINDINGS: Demineralization limits evaluation of fine osseous detail. Prominent hallux valgus and bunion. No evident acute fracture dislocation. Soft tissues unremarkable. Previously identified osteomyelitis of the distal phalanx of the third left toe cannot be evaluated on this plain film series. IMPRESSION: 1. Previously identified osteomyelitis of the distal phalanx of the third left toe cannot be evalua christina on this plain film series. 2. Demineralization, with prompt hallux valgus and bunion. RPTAT: UU Physician Janay Date Time Electronically viewed and signed by Physician Janay on 07/06/2016 18:48 RS/
[2016-07-06 19:18] VITALS: TEMP 97.9
--- NOTE | 2016-07-06 19:21 | ERA ---
ER Documentation Chief Complaint Date/Time DATE: 07/06/16 TIME: 19:18 Chief Complaint SENT BY FOR ADMISSION, SWEELING AND PAIN TO LEFT LEG HPI Patient is a 68-year-old female who presents for admission. The patient was sent by Dr. Osmany Palacios for admission. The patient has left leg swelling and osteomyelitis. The patient has failed outpatient treatment. She has been dealing with this for about 1 month. She has left second toe pain and swelling. She has had no antibiotics for the past few days. ROS All systems reviewed and are negative except as per history of present illness. Medications Home Meds Active Scripts Sitagliptin Phos/Metformin HCl (Janumet 50-1,000 mg Tablet) 1 Each Tablet, 1 EACH PO BID, #60 TAB Prov:RICCARDO GARY MD 06/19/16 Insulin Glargine* (Lantus*) 100 Unit/Ml Soln, 25 UNIT SC QHS for 30 Days Prov:RICCARDO GARY MD 06/19/16 Pantoprazole* (Pantoprazole*) 40 Mg Tablet.dr, 40 MG PO DAILY@06 for 30 Days Prov:RICCARDO GARY MD 06/19/16 Tramadol HCl (Tramadol HCl) 50 Mg Tablet, 50 MG PO Q6H Y for PAIN LEVEL 1-5, #1 TAB Prov:RICCARDO GARY MD 06/19/16 Benazepril Hcl* (Benazepril Hcl*) 20 Mg Tablet, 20 MG PO DAILY for 30 Days, TAB Prov:RICCARDO GARY MD 06/19/16 Atorvastatin* (Atorvastatin*) 40 Mg Tablet, 40 MG PO HS, #30 TAB Prov:RICCARDO GARY MD 06/19/16 [Vancomycin Iv Per Pharmacy] 1 EA EACH No Conflict Check, 0 EA XX .PER PROTOCOL for 50 Days Prov:RICCARDO GARY MD 06/19/16 Discontinued Reported Medications Calcium Carbonate/Vitamin D3 (Oysco 500+D Tablet) 1 Tab Tablet, 2 TAB PO BID 09/06/10 Gabapentin* (Neurontin*) 300 Mg Capsule, 300 MG PO TID 09/05/10 Multivitamins* (Multivitamins*) 1 Tab Tablet, 1 TAB PO DAILY 09/05/10 Phenytoin* Sodium Extended (Dilantin*) 100 Mg Capsule, 100 MG PO HS 09/05/10 Allergies Allergies: Coded Allergies: No Known Drug Allergy (Verified Allergy, Mild, 07/06/16) PMhx/Soc History of Surgery: No (back surgery, , hysterectomy) Anesthesia Reaction: No Hx Neurological Disorder: Yes Hx Respiratory Disorders: No Hx Cardiac Disorders: No Hx Psychiatric Problems: Yes (DEMENTIA) Hx Miscellaneous Medical Probl: Yes (DM, dementia, seizure, back surgery) Hx Alcohol Use: No Hx Substance Use: No Hx Tobacco Use: No Smoking Status: Never smoker FmHx Family History: No diabetes Physical Exam Vitals Vital Signs Date Time Temp Pulse Resp B/P Pulse Ox O2 Delivery O2 Flow Rate FiO2 07/06/16 18:25 97.9 88 18 139/65 100 Room Air 07/06/16 18:00 Nasal Cannula 2 07/06/16 16:24 97.9 85 18 144/73 99 Physical Exam Const: No acute distress Head: Atraumatic Eyes: Normal Conjunctiva ENT: Normal External Ears, Nose and Mouth. Neck: Full range of motion..~ No meningismus. Resp: Clear to auscultation bilaterally Cardio: Regular rate and rhythm, no murmurs Abd: Soft, non tender, non distended. Normal bowel sounds Skin: Skin destruction of the base of the left second toe, surrounding erythema and redness Back: No midline or flank tenderness Ext: No cyanosis, or edema Neur: Awake and alert Psych: Normal Mood and Affect Result Diagram: 07/06/16 1750 07/06/16 1750 Results 24 hrs Laboratory Tests Test 07/06/16 17:50 White Blood Count 5.410^3/ul Red Blood Count 4.1410^6/ul Hemoglobin 12.5g/dl Hematocrit 36.6% Mean Corpuscular Volume 88.4fl Mean Corpuscular Hemoglobin 30.2pg Mean Corpuscular Hemoglobin Concent 34.2g/dl Red Cell Distribution Width 12.3% Platelet Count 61787^3/UL Mean Platelet Volume 9.8fl Neutrophils % 54.4% Lymphocytes % 34.8% Monocytes % 7.8% Eosinophils % 2.2% Basophils % 0.4% Nucleated Red Blood Cells % 0.0/100WBC Neutrophils # 2.910^3/ul Lymphocytes # 1.910^3/ul Monocytes # 0.410^3/ul Eosinophils # 0.110^3/ul Basophils # 0.010^3/ul Nucleated Red Blood Cells # 0.010^3/ul Prothrombin Time 12.9Sec Prothrombin Time Ratio 1.0 INR International Normalized Ratio 0.97 Activated Partial Thromboplast Time 27.8Sec Sodium Level 136mmol/L Potassium Level 3.9mmol/L Chloride Level 97mmol/L Carbon Dioxide Level 22mmol/L Anion Gap 21 Blood Urea Nitrogen 11mg/dl Creatinine 0.66mg/dl Glucose Level 307mg/dl Lactic Acid Level 4.8mmol/L Calcium Level 9.7mg/dl Total Bilirubin 0.2mg/dl Direct Bilirubin 0.00mg/dl Indirect Bilirubin 0.2mg/dl Aspartate Amino Transf (AST/SGOT) 22IU/L Alanine Aminotransferase (ALT/SGPT) 25IU/L Alkaline Phosphatase 101IU/L Troponin I < 0.012ng/ml Total Protein 8.5g/dl Albumin 4.6g/dl Globulin 3.90g/dl Albumin/Globulin Ratio 1.17 Current Medications Medications (Trade) Dose Ordered Sig/Shavon Route PRN Reason Start Time Stop Time Status Last Admin Dose Admin Sodium Chloride 2460 ml 2,460 ml BOLUS OVER 2 HOURS STAT IV* 07/06/16 17:33 07/06/16 17:36 DC 07/06/16 18:08 Vancomycin HCl 250 ml @ 125 mls/hr ONCE STAT IVPB 07/06/16 17:33 07/06/16 19:32 Piperacillin Sod/ Tazobactam Sod (Zosyn 3.375gm/ 100 ml (Pmx)) 100 ml @ 200 mls/hr ONCE STAT IVPB 07/06/16 17:33 07/06/16 18:02 DC 07/06/16 18:33 Ondansetron HCl (Zofran Inj) 4 mg BRIDGE ORDER PRN IV NAUSEA AND/OR VOMITING 07/06/16 18:00 07/07/16 17:59 Acetaminophen (Tylenol Tab) 650 mg ER BRIDGE PRN PO MILD PAIN/FEVER 07/06/16 18:00 07/07/16 17:59 Procedures/MDM PROCEDURE: X-ray left foot CLINICAL INDICATION: Left foot pain. Possible sepsis. TECHNIQUE: 3 views left foot. COMPARISON: MRI left foot dated 06/11/2016. FINDINGS: Demineralization limits evaluation of fine osseous detail. Prominent hallux valgus and bunion. No evident acute fracture dislocation. Soft tissues unremarkable. Previously identified osteomyelitis of the distal phalanx of the third left toe cannot be evaluated on this plain film series. IMPRESSION: 1. Previously identified osteomyelitis of the distal phalanx of the third left toe cannot be evaluated on this plain film series. 2. Demineralization, with prompt hallux valgus and bunion. RPTAT: UU Physician Janay Date Time Electronically viewed and signed by Physician Janay on 07/06/2016 18:48 PROCEDURE: XR Chest. CLINICAL INDICATION: Possible sepsis. TECHNIQUE: Single frontal view of the chest. COMPARISON: 04/15/2009. FINDINGS: Left central venous line in place with tip in superior vena cava. Cardiomegaly and atherosclerotic calcifications in the thoracic aorta. Elevated left hemidiaphragm with atelectasis and possible superimposed airspace disease at left lung base. Right lung is clear. No signs of pleural fluid or pneumothorax are seen. The osseous structures and soft tissues are unremarkable. IMPRESSION: Atelectasis with possible superimposed airspace disease at the left lung base. RPTAT: UU Physician Janay Date Time Electronically viewed and signed by Physician Janay on 07/06/2016 18:45 EKG read by me: Rate/Rhythm: Regular rate and rhythm at a normal rate Intervals: Normal Impression: No evidence of ischemia or arrhythmia Admit MDM: Patient's infectious symptoms have not stabilized and the patient is at risk of rapid decompensation. The patient will be admitted for careful hydration, antibiotic therapy, and infectious source control. Severe Sepsis criteria: Infectious source: Osteomyelitis End organ damage indicated by: Lactate greater than 2 Sepsis Management: Time of recognition of sepsis: 1750 Within 3 hours of recognition: Blood cultures x 2 before broad-spectrum antibiotics: Yes 30 ml/kg NS bolus Completed Initial lactate 4.8 Repeat lactate pending Time of recognition of septic shock: 1750 Septic Shock Assessment: Any lactic acid > 4.0 yes Persistent hypotension (SBP < 90 or 40 mmHg drop, MAP < 65) despite 30 mL/kg IV fluid bolus No Volume Re-assessment for Septic Shock (post 30 ml/kg bolus): Temp 97.9, BP 139/65, HR 88, RR 18, Pox 100% on room air Heart Regular rate & rhythm Lungs No crackles Skin Warm & dry Cap Refill Less than 2 seconds Peripheral pulses Radially present Persistent Hypotension Treatment: Comfort care No Central line Not Required Vasopressor started Not required I considered further perfusion assessment with CVP measurement, SCVO2, bedside ultrasound volume assessment, passive leg raise, trial of further fluid bolus. And proceeded with 30 ml/kg fluid bolus of NSS, broad spectrum antibiotics, and admission. Accepting Care Team Current data and ongoing care discussed. Admitting Physician: Dr. Palacios who sent the patient to the hospital Supervisor Composing Room(s): None Outstanding Data: Culture results and repeat lactic acid Critical Care: Critical care time 35 minutes excluding all billable procedures Emergent fluid management while maintaining close respiratory support. Provision of immediate and broad-spectrum antibiotic therapy. Simultaneous assessment for possible sources in order to direct targeted therapy. Consideration for invasive and chemical support to prevent cardiopulmonary collapse. Departure Diagnosis: Primary Impression: Septic shock Additional Impressions: Swelling Osteomyelitis due to type 2 diabetes mellitus Condition: CHEN Aponte MD July 06, 2016 19:21
[2016-07-06 20:00] VITALS: BP 149/69; PULSE 78; RESP 18
[2016-07-06 20:14] VITALS: Ht 154.9 cm; Wt 79.8 kg
[2016-07-06 20:15] VITALS: BP 149/69; RESP 19
[2016-07-06] MEDS ORDERED: VANCOMYCIN IV PER PHARMACY XX SCH (20:30)
[2016-07-06] MEDS ORDERED: BISACODYL 10 MG SUPP PR PRN (20:30)
[2016-07-06] MEDS ORDERED: ZOLPIDEM 5 MG TAB PO PRN (20:30)
[2016-07-06] MEDS ORDERED: BISACODYL (EC) 5 MG TAB PO PRN (20:30)
[2016-07-06] MEDS ORDERED: NA PHOSPHATE/BIPHOS 133 ML ENEMA PR PRN (20:30)
[2016-07-06] MEDS ORDERED: DOCUSATE SODIUM 100 MG CAP PO PRN (20:30)
[2016-07-06] MEDS ORDERED: MAGNESIUM HYDROXIDE 30ML CUP PO PRN (20:30)
[2016-07-06] MEDS ORDERED: NACL 0.9% 3 ML SYG IV SCH (20:30)
[2016-07-06] MEDS ORDERED: ALBUTEROL/IPRATROPIUM (NEB) 3 ML AMP HHN PRN (20:30)
[2016-07-06] MEDS ORDERED: morphine 2 MG INJ IV PRN (20:30)
[2016-07-06] MEDS ORDERED: DEXTROSE 50% 50 ML SYRINGE IV PRN ×2 (21:00)
[2016-07-06] MEDS ORDERED: GLUCAGON 1 MG INJ IM PRN (21:00)
[2016-07-06] MEDS ORDERED: GLUCOSE GEL 15 GRAM TUBE BUCCAL PRN (21:00)
[2016-07-06] MEDS ORDERED: GLUCOSE GEL 15 GRAM TUBE PO PRN ×2 (21:00)
[2016-07-06] MEDS ORDERED: SILVER SULFADIAZINE 1% 50 GM CR TOP SCH (21:30)
[2016-07-06] MEDS: INSULIN ASPART [NOVOLOG] 3 ML PEN SC SCH (21:30)
[2016-07-06] MEDS ORDERED: VANCOMYCIN 500MG/NS (PMX) 100 ML IVPB SCH (22:30)
[2016-07-06] MEDS: INSULIN GLARGINE [LANtus] 3 ML PEN SC SCH (23:01)
[2016-07-06] MEDS: HEPARIN 5,000 UNIT/0.5 ML VIAL SC SCH (23:01)
[2016-07-06] MEDS: SILVER SULFADIAZINE 1% 25 GM CR TOP SCH (23:02)
[2016-07-06] MEDS: ATORVASTATIN 40 MG TAB PO SCH (23:02)
--- NOTE | 2016-07-06 23:39 | HP ---
DATE OF ADMISSION: 07/06/2016 CHIEF COMPLAINT: Left foot pain, worsening edema of left foot osteomyelitis. HISTORY OF PRESENT ILLNESS: This is a 76-year-old female who has a past medical history of diabetes mellitus type 2, hypertension, hyperlipidemia, history of recent admission to [facility] from 06/10/2016 to 06/23/2016 for left foot pain, swelling, and wound. At that time she was evaluated by her pipeline controller, Dr. Maximino San, and the patient had endovascular intervention d one by him. The patient was evaluated by infectious disease service and was recommended to have 8 w eeks of IV antibiotics for MRSA osteomyelitis. The patient was discharged on 06/20/2016. She was f ollowed up by home health nurse for IV antibiotics, and she was getting vancomycin at home. Today, the patient went to follow up with vascular surgeon, Dr. Maximino San, as outpatient. She gives a history of a home health nurse not following at home due to the insurance change, and her l eft foot wound has not been healing very well. It is getting worse. She was also complaining of wo rsening of pain on the left foot pain. The patient's primary automotive porter is Dr. Gregg Lee, who recommended the patient to have IV antibiotics for osteomyelitis. The patient had a debridement, an d the cultures obtained are positive for MRSA. She was recommended to have a followup with podiatry and also with vascular, Dr. Maximino San. In the emergency room, the patient is noted to have a WBC count normal. She was afebrile, but the p atient had elevated lactic acid of 4.8 on admission. She was slightly tachycardic due to pain. She was afebrile, blood pressure was stable and she was satting 99 to 100% on 2 liter nasal cannula. S he is getting admitted to the med/surg floor for further workup of osteomyelitis and IV antibiotics. REVIEW OF SYSTEMS: Left foot pain, swelling, erythema, and wound. Other review of systems has been obtained and is negative except what is mentioned in the history of present illness. PAST MEDICAL HISTORY: Hypertension, hyperlipidemia, history of diabetes mellitus type 2, severe per ipheral vascular disease, status post endovascular intervention by Dr. Maximino San. PAST SURGICAL HISTORY: History of recent admission in May 2016, and the patient had endovascular intervention done at that time. The patient had echocardiogram done, which revealed an ejection fra ction 65% with stage I diastolic dysfunction. SOCIAL HISTORY: Lives with the family. No smoking, alcohol, or recreational drug use. FAMILY HISTORY: Not available. PHYSICAL EXAMINATION: VITAL SIGNS: Temperature 97.5, heart rate is 78 to 85, respiration 18 to 20, blood pressure is 139 to 144 over 61 to 73, saturation is 90% to 100% on room air. GENERAL: Awake, alert. Mild distress due to the pain. HEENT: Normal. Oropharynx clear. Pupils equal, round, reactive to light and accommodation. Extra ocular muscles are intact. NECK: Supple, no JVD, no lymphadenopathy. LUNGS: Clear to auscultation. No crackles, no wheezes. HEART: S1, S2, with regular rhythm, no murmur. ABDOMEN: Soft, nontender, nondistended. Bowel sounds are present. EXTREMITIES: The patient has necrotic wounds on her left toes bilaterally. LABORATORY DATA/DIAGNOSTIC IMAGIN. WBC 5.4, hemoglobin 12.5, platelet count 210. Sodium 136, potassium 3.9, chloride 97, bicarbona te 22, BUN 11, creatinine 0.6, glucose 307. Lactic acid 4.8, albumin 4.6. LFTs are normal. Protim e 12.9, PTT 27.8, INR 0.97. 2. WBC 5.4, hemoglobin 12.5, platelet count 210. 3. Left foot x-ray shows the previously identified osteomyelitis of the distal phalanx of the third left toe cannot be evaluated on this film series. Demineralization with prompt hallux valgus and bunion. 4. Chest x-ray: Atelectasis with possible superimposed airspace disease at the left lung base. IMPRESSION: This is a 76-year-old female with: 1. Left foot third toe osteomyelitis with bilateral foot cellulitis, not healing very well. 2. Severe peripheral arterial disease, status post endovascular repair by Dr. Sna. 3. History of diabetes mellitus type 2 complicated by diabetic neuropathy. 4. History of hypertension. 5. History of hyperlipidemia. 6. History of recent admission at [facility] from 06/10/2016 to 06/20/2016 for a left foot osteomyelitis and had a PICC line placement. She was discharged home with IV antibiotics, vancomycin, for methicillin resistant Staphylococcus aureus osteomyelitis. 7. Severe sepsis with lactic acid 4.8 on admission secondary to left foot osteomyelitis. PLAN: 1. Admission to the med/surg floor. IV antibiotics, vancomycin, per pharmacy to dose. The patient received Zosyn in the emergency room. I will continue the patient on Zosyn 3.375 gram IV q.8h. 2. Pain control with Tylenol, [place], tramadol, and IV morphine. 3. Protonix for GI prophylaxis, heparin for DVT prophylaxis. 4. Continue the Lantus 25 units subcutaneous at bedtime with NovoLog insulin sliding scale, moderat e algorithm. 5. Podiatry consult, Dr. Gregg Lee to see patient. 6. The patient is currently seen in the emergency room and she will be getting admitted to the med/ surg floor for further workup of left first toe osteomyelitis and podiatry evaluation. She will be continued on 2 antibiotics, including IV Zosyn and IV vancomycin. Total time spent in this patient's evaluation making assessment and plan for history and physical, c ommunicating with the patient at bedside, and communicating with the nursing staff took more than 90 minutes. Dictated By: MARIAN BURNS MD, KP/LEI Conf#: [id number] DID#: [id number]
[2016-07-07] MEDS: ACCU-CHEK XX SCH (02:00)
--- NOTE | 2016-07-07 03:12 | CONS ---
DATE OF ADMISSION: 07/06/2016 DATE OF CONSULTATION: 07/06/2016 CHIEF COMPLAINT: 1. Bilateral feet ulceration. 2. Osteomyelitis. 3. Failed outpatient treatment. HISTORY OF PRESENT ILLNESS: This is a 76-year-old female with diabetes, nonhealing wounds, had been on oral and IV antibiotics, has a left second toe and right third toe ulceration and peripheral arterial disease with dry gangrene and underlying osteomyelitis. The patient relates persistent pain. She has a history of MRSA. PAST MEDICAL HISTORY: 1. Type 2 diabetes. 2. Type 2 diabetes with angiopathy. 3. History of MRSA infection. 4. Peripheral arterial disease. 5. Dementia. 6. Back pain. ALLERGIES: NONE. PAST SURGICAL HISTORY: Back surgery, , hysterectomy. SOCIAL HISTORY: Denies any tobacco or alcohol use. PHYSICAL EXAMINATION: VITAL SIGNS: Temperature 97.5, pulse 78, respiratory rate 18, blood pressure 149/69, pulse ox is 98 on room air. GENERAL: The patient alert, oriented, no acute distress. HEAD: Normocephalic, atraumatic. LUNGS: Regular respirations. EXTREMITIES: The patient with dry skin. Dystrophic nails. There is a hyperkeratotic lesion to the right third toe and distal aspect of left second toe with ulceration measuring approximately 2 x 3 mm with dry gangrene and bone exposure, severe dystrophic nails. No evidence of cyanosis or edema. Pedal pulses are diminished. The patient with a 2+ popliteal pulse bilaterally. No lymphangitis. Mild erythema to the left third toe. The patient has pain with palpation of the left third toe. X-RAYS: Demineralization of previously identified osteomyelitis, distal phalanx. Unable to visualize on this plain film series. Hallux valgus deformity. Chest x-ray with atelectasis with possible superimposed airspace disease at left lung base. LABORATORIES: WBC 5.4, hemoglobin 12.5, hematocrit 36.6, platelets 210. Sodium 136, potassium 3.9, chloride 97, CO2 22, BUN 11, creatinine 0.66, glucose is 307. ASSESSMENT: 1. Gangrene. 2. Nonhealing diabetic foot ulceration. 3. Osteomyelitis, left third toe. 4. Diabetic foot ulceration, left second toe and right third toe. 5. Diabetes type 2, poorly controlled. 6. History of methicillin resistant Staphylococcus aureus. PLAN: Nursing recommendations given, applied Silvadene. Recommend operative intervention for debridement of ulceration, possible biopsy of bone and wound closure if possible. The patient at risk for amputation of the toe. We will coordinate with the surgical team and schedule at a mutually agreeable time. Recommend optimizing nutritional status and glycemic control perioperatively. The patient initiated on vancomycin and Zosyn. We will add fluconazole and ID consulted. Discussed plan with the patient and she is amenable for operative intervention. Dictated By: JOVANNA VILCHIS DPM RB/LEI Conf#: [id number] DID#: [id number] CC: JOVANNA VILCHIS DPM; MARIAN BURNS MD;*EndCC* MTDD
[2016-07-07 05:10] LABS: ADD SCAN DIFF NO
[2016-07-07 05:17] LABS: BASOPHILS % 0.2 % (0.0-2.0); EOSINOPHILS # 0.1 10^3/ul (0.0-0.5); EOSINOPHILS % 2.5 % (0.0-7.0); HEMATOCRIT 32.1 % (37.0-47.0); LYMPHOCYTES # 1.6 10^3/ul (0.8-2.9); LYMPHOCYTES % 35.2 % (15.0-51.0); MEAN CORPUSCULAR HEMOGLOBIN 30.6 pg (29.0-33.0); MEAN CORPUSCULAR HGB CONC 34.3 g/dl (32.0-37.0); MEAN CORPUSCULAR VOLUME 89.2 fl (82.0-101.0); MEAN PLATELET VOLUME 9.8 fl (7.4-10.4); MONOCYTE # 0.4 10^3/ul (0.3-0.9); MONOCYTES % 8.5 % (0.0-11.0); NEUTROPHIL # 2.4 10^3/ul (1.6-7.5); NEUTROPHILS % 53.4 % (39.0-77.0); PLATELET COUNT 183 10^3/UL (140-415); RED CELL DISTRIBUTION WIDTH 12.4 % (11.5-14.5); WHITE BLOOD COUNT 4.5 10^3/ul (4.8-10.8)
[2016-07-07 05:42] LABS: ALBUMIN 3.3 g/dl (3.3-4.9); POTASSIUM 4.1 mmol/L (3.5-5.1)
[2016-07-07 05:44] LABS: BILIRUBIN,INDIRECT 0.2 mg/dl (0-1.1); BILIRUBIN,TOTAL 0.2 mg/dl (0.2-1.3); CREATININE 0.69 mg/dl (0.44-1.00)
[2016-07-07 05:45] LABS: ALBUMIN/GLOBULIN RATIO 1.1; CALCIUM 8.9 mg/dl (8.4-10.2); TOTAL PROTEIN 6.3 g/dl (6.1-8.1)
[2016-07-07] MEDS: PANTOPRAZOLE (EC) 40 MG TAB PO SCH (05:55)
[2016-07-07 07:10] VITALS: BP 151/75; RESP 16
[2016-07-07] MEDS: BENAZEPRIL 20 MG TAB PO SCH (08:26)
[2016-07-07] MEDS: SILVER SULFADIAZINE 1% 25 GM CR TOP SCH ×2 (08:26→21:03)
[2016-07-07] MEDS: INSULIN ASPART [NOVOLOG] 3 ML PEN SC SCH ×4 (08:28→21:01)
[2016-07-07] MEDS: HEPARIN 5,000 UNIT/0.5 ML VIAL SC SCH ×2 (08:35→21:00)
--- NOTE | 2016-07-07 11:31 | PN ---
Date/Time of Note Date/Time of Note DATE: 07/07/16 TIME: 11:28 Assessment/Plan VTE Prophylaxis VTE Prophylaxis Intervention: SCD's, other Lines/Catheters IV Catheter Type (from Nrsg): PICC Line Central line still needed: Yes (IV abx for osteomyelitis ) Assessment/Plan Assessment/Plan 1. Left foot third toe osteomyelitis with bilateral foot cellulitis, not healing very well. 2. Severe peripheral arterial disease, status post endovascular repair by Dr. San. 3. History of diabetes mellitus type 2 complicated by diabetic neuropathy. 4. History of hypertension. 5. History of hyperlipidemia. 6. History of recent admission at [facility] from 06/10/2016 to 06/20/2016 for a left foot osteomyelitis and had a PICC line placement. She was discharged home with IV antibiotics, vancomycin, for methicillin resistant Staphylococcus aureus osteomyelitis. 7. Severe sepsis with lactic acid 4.8 on admission secondary to left foot osteomyelitis. PLAN: Continue IV abx zosyn and vancomycin CRP still high BP stable case management to set up another home health for IV abx at home, PICC line S/p Podiatry consult, appreciate help Pt lives alone at home, her daughter works regional sales leader and not available for help athome she needs Home health for IV abx for left second toe and right third toe ulceration and peripheral arterial disease with dry gangrene and underlying osteomyelitis. IV vancomycin 1.25gram IV BID x 6 weeks till08/18/2016, PICC line, Left foot care , physical therapy date of encounter: 07/07/2016 Case management consutl requested for it. Subjective 24 Hr Interval Summary Free Text/Dictation pt lost her previous home health, no one followed up on p atient since 06/26/16 due to insurance change,BP stable, lactic acid improved, CRP still high Exam/Review of Systems Vital Signs Vitals Vital Signs Date Time Temp Pulse Resp B/P Pulse Ox O2 Delivery O2 Flow Rate FiO2 07/07/16 07:10 97.9 78 16 151/75 99 07/07/16 02:51 2.0 07/06/16 20:00 Room Air Intake and Output 07/06/16 07/06/16 07/07/16 15:00 23:00 07:00 Intake Total 250 ml 560 ml Balance 250 ml 560 ml Exam GENERAL: Awake, alert. Mild distress due to the pain. HEENT: Normal. Oropharynx clear. Pupils equal, round, reactive to light and accommodation. Extraocular muscles are intact. NECK: Supple, no JVD, no lymphadenopathy. LUNGS: Clear to auscultation. No crackles, no wheezes. HEART: S1, S2, with regular rhythm, no murmur. ABDOMEN: Soft, nontender, nondistended. Bowel sounds are present. EXTREMITIES: The patient has necrotic wounds on her left toes bilaterally. Results Result Diagram: 07/07/16 0433 07/07/16 0433 Results 24 hrs Laboratory Tests Test 07/06/16 17:50 07/06/16 20:03 07/06/16 20:16 07/06/16 21:50 White Blood Count 5.4 Red Blood Count 4.14 L Hemoglobin 12.5 Hematocrit 36.6 L Mean Corpuscular Volume 88.4 Mean Corpuscular Hemoglobin 30.2 Mean Corpuscular Hemoglobin Concent 34.2 Red Cell Distribution Width 12.3 Platelet Count 210 # Mean Platelet Volume 9.8 Neutrophils % 54.4 Lymphocytes % 34.8 Monocytes % 7.8 Eosinophils % 2.2 Basophils % 0.4 Nucleated Red Blood Cells % 0.0 Neutrophils # 2.9 Lymphocytes # 1.9 Monocytes # 0.4 Eosinophils # 0.1 Basophils # 0.0 Nucleated Red Blood Cells # 0.0 Prothrombin Time 12.9 Prothrombin Time Ratio 1.0 INR International Normalized Ratio 0.97 Activated Partial Thromboplast Time 27.8 Sodium Level 136 Potassium Level 3.9 Chloride Level 97 Carbon Dioxide Level 22 Anion Gap 21 H Blood Urea Nitrogen 11 Creatinine 0.66 Glucose Level 307 H Lactic Acid Level 4.8 *H 1.7 1.3 Calcium Level 9.7 Total Bilirubin 0.2 Direct Bilirubin 0.00 Indirect Bilirubin 0.2 Aspartate Amino Transf (AST/SGOT) 22 Alanine Aminotransferase (ALT/SGPT) 25 Alkaline Phosphatase 101 Troponin I < 0.012 Total Protein 8.5 H Albumin 4.6 Globulin 3.90 H Albumin/Globulin Ratio 1.17 Bedside Glucose 221 H Test 07/06/16 22:58 07/07/16 04:33 07/07/16 08:08 Bedside Glucose 150 163 White Blood Count 4.5 L Red Blood Count 3.60 L Hemoglobin 11.0 L Hematocrit 32.1 L Mean Corpuscular Volume 89.2 Mean Corpuscular Hemoglobin 30.6 Mean Corpuscular Hemoglobin Concent 34.3 Red Cell Distribution Width 12.4 Platelet Count 183 Mean Platelet Volume 9.8 Neutrophils % 53.4 Lymphocytes % 35.2 Monocytes % 8.5 Eosinophils % 2.5 Basophils % 0.2 Nucleated Red Blood Cells % 0.0 Neutrophils # 2.4 Lymphocytes # 1.6 Monocytes # 0.4 Eosinophils # 0.1 Basophils # 0.0 Nucleated Red Blood Cells # 0.0 Erythrocyte Sedimentation Rate 27 Sodium Level 140 Potassium Level 4.1 Chloride Level 105 Carbon Dioxide Level 26 Anion Gap 13 # Blood Urea Nitrogen 10 Creatinine 0.69 Glucose Level 212 Lactic Acid Level 2.0 Calcium Level 8.9 Total Bilirubin 0.2 Direct Bilirubin 0.00 Indirect Bilirubin 0.2 Aspartate Amino Transf (AST/SGOT) 18 Alanine Aminotransferase (ALT/SGPT) 25 Alkaline Phosphatase 73 C-Reactive Protein 1.5 H Total Protein 6.3 # Albumin 3.3 # Globulin 3.00 Albumin/Globulin Ratio 1.10 Medications Medications Current Medications Atorvastatin Calcium (Lipitor) 40 mg HS PO Last administered on 07/06/16 23:02 ; Admin Dose 40 MG; Start 07/06/16 at 21:00 Benazepril HCl (Lotensin) 20 mg DAILY PO Last administered on 07/07/16 08:26; Admin Dose 20 MG; Start 07/07/16 at 09:00 Insulin Glargine (Lantus) 25 unit QHS SC Last administered on 07/06/16 23:01; Admin Dose 25 UNIT; Start 07/06/16 at 21:30 Pantoprazole (Protonix Tab) 40 mg DAILY@06 PO Last administered on 07/07/16 05 :55; Admin Dose 40 MG; Start 07/07/16 at 06:00 Tramadol HCl (Ultram) 50 mg Q6H PRN PO PAIN LEVEL 1-5; Start 07/06/16 at 20:30 Ondansetron HCl (Zofran Inj) 4 mg Q4H PRN IV NAUSEA AND/OR VOMITING; Start 01/12 at 20:30 Acetaminophen (Tylenol Tab) 650 mg Q6H PRN PO PAIN LEVEL 1-3 OR FEVER; Start at 20:30 Acetaminophen/ Hydrocodone Bitart ([place] (5/325)) 1 tab Q6H PRN PO MODERATE PAIN LEVEL 4-6; Start 07/06/16 at 20:30 Morphine Sulfate (morphine) 1 mg Q4H PRN IV SEVERE PAIN LEVEL 7-10; Start 07/06 at 20:30 Docusate Sodium (Colace) 100 mg Q12H PRN PO CONSTIPATION; Start 07/06/16 at 20: 30 Magnesium Hydroxide (Milk Of Mag) 30 ml DAILY PRN PO CONSTIPATION; Start at 20:30 Bisacodyl (Dulcolax) 5 mg DAILY PRN PO CONSTIPATION; Start 07/06/16 at 20:30 Bisacodyl (Dulcolax Supp) 10 mg DAILY PRN MO CONSTIPATION; Start 07/06/16 at 20 :30 Sodium Biphosphate/ Sodium Phosphate (Fleet Enema) 133 ml DAILY PRN MO CONSTIPATION; Start 07/06/16 at 20:30 Zolpidem Tartrate (Ambien) 5 mg QHS PRN PO SLEEP; Start 07/06/16 at 20:30 Heparin Sodium (Porcine) (Heparin (5000 Units/0.5 ml)) 5,000 unit Q12 SC Last administered on 07/07/16t 08:35; Admin Dose 5,000 UNIT; Start 07/06/16 at 21:00 Diagnostic Test (Pha) (Accu-Chek) 1 ea 02 XX ; Start 07/07/16 at 02:00 Sodium Hypochlorite (Dakin'S (Dilute 1/40%)) 1 applic DAILY IRR ; Start at 09:00 Miscellaneous Information 1 ea NOTE XX ; Start 07/06/16 at 21:00 Glucose (Glutose) 15 gm Q15M PRN PO DECREASED GLUCOSE; Start 07/06/16 at 21:00 Glucose (Glutose) 22.5 gm Q15M PRN PO DECREASED GLUCOSE; Start 07/06/16 at 21: 00 Dextrose (D50w Syringe) 25 ml Q15M PRN IV DECREASED GLUCOSE; Start 07/06/16 at 21:00 Dextrose (D50w Syringe) 50 ml Q15M PRN IV DECREASED GLUCOSE; Start 07/06/16 at 21:00 Glucagon (Glucagen) 1 mg Q15M PRN IM DECREASED GLUCOSE; Start 07/06/16 at 21:00 Glucose (Glutose) 15 gm Q15M PRN BUCCAL DECREASED GLUCOSE; Start 07/06/16 at 21 :00 Silver Sulfadiazine 1 applic 1 applic BID TOP Last administered on 07/07/16t 08 :26; Admin Dose 1 APPLIC; Start 07/06/16 at 21:30 Vancomycin HCl/ Sodium Chloride (Vancocin/NS) 250 ml @ 83.333 mls/ hr Q12H IVPB ; Start 07/07/16 at 12:30 Miscellaneous Information (*Rx Drug Level Order Reminder*) 1 ONCE ONCE XX ; Start 07/08/16 at 11:30; Stop 07/08/16 at 11:31 MARIAN BURNS MD July 07, 2016 11:31
--- NOTE | 2016-07-07 13:46 | CONS ---
DATE OF ADMISSION: 07/06/2016 DATE OF CONSULTATION: 07/07/2016 TYPE OF CONSULTATION: Infectious disease. REASON FOR CONSULTATION: Antibiotic management. HISTORY OF PRESENT ILLNESS: Louise Pacheco is a 76-year-old female who comes in with left foot pain and left foot osteomyelitis. Her past problems include: 1. Hypertension. 2. Adult-onset diabetes mellitus. 3. Hyperlipidemia. 4. Severe peripheral vascular disease. 5. Status post endovascular intervention by Dr. San. The patient was recently admitted to [facility] 06/10/2016 to 06/20/2016 for leg pain, swel ling and wound. She was evaluated by her seafood fisherman, Dr. San, and she had endovascular intervent ion done by him. We recommended her to have 8 weeks of IV antibiotics for MRSA osteomyelitis and th e patient was discharged on 06/20/2016. Today, the patient went to follow up with vascular surgeon. She gave a history that the home health nurse did not follow up with her secondary to insurance re asons. She was seen by Dr. Vilchis, podiatry, who recommended IV antibiotics for osteomyelitis. Sh e had a debridement and cultures came back positive for MRSA. She was recommended to have a followu p with podiatry and also with vascular surgery. In the emergency room, she was afebrile. Lactic ac id was 4.8. She was slightly tachycardic due to the pain. She is now being admitted for workup of the osteomyelitis and for IV antibiotics. PAST MEDICAL HISTORY: Operations as outlined. She had an echocardiogram with an ejection fraction of 65% with stage I diastolic dysfunction. ALLERGIES: NONE TO PENICILLIN, SULFA OR FOODS. MEDICATIONS: Per chart. REVIEW OF SYSTEMS: As per HPI. PHYSICAL EXAMINATION: GENERAL: The patient is a well-developed, well-nourished female who is alert, responsive, in no acu te distress. VITAL SIGNS: Stable. She is afebrile. SKIN: Without generalized rash. HEENT: Within normal limits. NECK: Supple. LYMPH NODES: None palpable. CHEST: Decreased breath sounds at the bases. HEART: Without murmur or gallop. ABDOMEN: Soft, nontender, without organosplenomegaly or masses. EXTREMITIES: Without cyanosis, clubbing, or edema. RECTAL/GENITAL: Exam is deferred. EXTREMITIES: She has some necrotic wounds on her left toes bilaterally. NEUROLOGIC: Within normal limits, no focal neurological abnormality. LABORATORY DATA: White count was 5.4, hemoglobin 12.5 and platelet count 210,000. BUN and creatini ne 11/0.6. Glucose 307. Lactic acid 4.8. Albumin 4.6. LFTs are within normal limits. Left foot shows previously identified osteomyelitis of the distal phalanx of the left third toe, dem ineralization with prominent hallux valgus and bunion. Chest x-ray shows atelectasis with possible superimposed airspace disease. IMPRESSION: 1. Left toe osteomyelitis with bilateral foot cellulitis not healing well. 2. Severe peripheral vascular disease. 3. Diabetes mellitus. PLAN: The patient was started on, I believe, vancomycin and Zosyn. We will continue her on current therapy. I will dictate my findings to Dr. Marian Palacios and Dr. Phillip Vilchis. Dr. Vilchis felt sh e had bilateral foot ulcerations, osteomyelitis and he recommends operative intervention for debride ment of the ulcerations, possibly a biopsy of bone and wound closure if possible. Also going to add fluconazole to the regimen. Dictated By: KT BROWNING MD, JD/LEI Conf#: [id number] DID#: [id number] CC: JOVANNA VILCHIS DPM; MARIAN PALACIOS MD;*End*
[2016-07-07] MEDS ORDERED: DEXTROSE 5%-0.45% NACL 1,000 ML IV ONE (14:00)
[2016-07-07] MEDS: VANCOMYCIN 1.25 GM in SOD CHLORIDE 0.9% 250 ML IVPB SCH (14:40)
[2016-07-07] MEDS: SODIUM HYPOCHLORITE 1/40% 1L IRRIG IRR SCH (16:54)
--- NOTE | 2016-07-07 19:23 | CONS ---
Date/Time of Note Date/Time of Note DATE: 07/07/16 TIME: 19:21 Assessment/Plan Assessment/Plan Problems: (1) Peripheral vascular disease (2) Non-pressure chronic ulcer of other part of right foot limited to breakdown of skin (3) Non-pressure chronic ulcer of other part of left foot with fat layer exposed (4) PAD (peripheral artery disease) Status: Chronic (5) Swelling Status: Acute (6) Sepsis Status: Acute (7) Septic shock Status: Acute (8) E. 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 Good revascularization Came in for IV abx for osteo Constitutional: no complaints Past Medical History Medical History: coronary artery disease Past Surgical History Past Surgical Hx: noncontributory Social History Smoking Status: Never smoker Exam/Review of Systems Vital Signs Vitals Vital Signs Date Time Temp Pulse Resp B/P Pulse Ox O2 Delivery O2 Flow Rate FiO2 07/07/16 07:10 97.9 78 16 151/75 99 07/07/16 02:51 2.0 07/06/16 20:00 Room Air Intake and Output 07/06/16 07/06/16 07/07/16 15:00 23:00 07:00 Intake Total 250 ml 560 ml Balance 250 ml 560 ml Exam Constitutional: alert, oriented Psych: no complaints Head: normocephalic Eyes: nl conjunctiva ENMT: nl external ears & nose Neck: supple Respiratory: clear to auscultation Cardiovascular: regular rate and rhythm Gastrointestinal: soft Results Result Diagram: 07/07/16 0433 07/07/16 0433 Results 24 hrs Laboratory Tests Test 07/06/16 20:03 07/06/16 20:16 07/06/16 21:50 07/06/16 22:58 Bedside Glucose 221 H 150 Lactic Acid Level 1.7 1.3 Test 07/07/16 04:33 07/07/16 08:08 07/07/16 11:53 07/07/16 17:03 White Blood Count 4.5 L Red Blood Count 3.60 L Hemoglobin 11.0 L Hematocrit 32.1 L Mean Corpuscular Volume 89.2 Mean Corpuscular Hemoglobin 30.6 Mean Corpuscular Hemoglobin Concent 34.3 Red Cell Distribution Width 12.4 Platelet Count 183 Mean Platelet Volume 9.8 Neutrophils % 53.4 Lymphocytes % 35.2 Monocytes % 8.5 Eosinophils % 2.5 Basophils % 0.2 Nucleated Red Blood Cells % 0.0 Neutrophils # 2.4 Lymphocytes # 1.6 Monocytes # 0.4 Eosinophils # 0.1 Basophils # 0.0 Nucleated Red Blood Cells # 0.0 Erythrocyte Sedimentation Rate 27 Sodium Level 140 Potassium Level 4.1 Chloride Level 105 Carbon Dioxide Level 26 Anion Gap 13 # Blood Urea Nitrogen 10 Creatinine 0.69 Glucose Level 212 Lactic Acid Level 2.0 Calcium Level 8.9 Total Bilirubin 0.2 Direct Bilirubin 0.00 Indirect Bilirubin 0.2 Aspartate Amino Transf (AST/SGOT) 18 Alanine Aminotransferase (ALT/SGPT) 25 Alkaline Phosphatase 73 C-Reactive Protein 1.5 H Total Protein 6.3 # Albumin 3.3 # Globulin 3.00 Albumin/Globulin Ratio 1.10 Bedside Glucose 163 283 H 162 Medications Medications Current Medications Atorvastatin Calcium (Lipitor) 40 mg HS PO Last administered on 07/06/16 23:02 ; Admin Dose 40 MG; Start 07/06/16 at 21:00 Benazepril HCl (Lotensin) 20 mg DAILY PO Last administered on 07/07/16 08:26; Admin Dose 20 MG; Start 07/07/16 at 09:00 Insulin Glargine (Lantus) 25 unit QHS SC Last administered on 07/06/16 23:01; Admin Dose 25 UNIT; Start 07/06/16 at 21:30 Pantoprazole (Protonix Tab) 40 mg DAILY@06 PO Last administered on 07/07/16 05 :55; Admin Dose 40 MG; Start 07/07/16 at 06:00 Tramadol HCl (Ultram) 50 mg Q6H PRN PO PAIN LEVEL 1-5; Start 07/06/16 at 20:30 Ondansetron HCl (Zofran Inj) 4 mg Q4H PRN IV NAUSEA AND/OR VOMITING; Start 01/12 at 20:30 Acetaminophen (Tylenol Tab) 650 mg Q6H PRN PO PAIN LEVEL 1-3 OR FEVER; Start at 20:30 Acetaminophen/ Hydrocodone Bitart ([place] (5/325)) 1 tab Q6H PRN PO MODERATE PAIN LEVEL 4-6; Start 07/06/16 at 20:30 Morphine Sulfate (morphine) 1 mg Q4H PRN IV SEVERE PAIN LEVEL 7-10; Start 07/06 at 20:30 Docusate Sodium (Colace) 100 mg Q12H PRN PO CONSTIPATION; Start 07/06/16 at 20: 30 Magnesium Hydroxide (Milk Of Mag) 30 ml DAILY PRN PO CONSTIPATION; Start at 20:30 Bisacodyl (Dulcolax) 5 mg DAILY PRN PO CONSTIPATION; Start 07/06/16 at 20:30 Bisacodyl (Dulcolax Supp) 10 mg DAILY PRN MO CONSTIPATION; Start 07/06/16 at 20 :30 Sodium Biphosphate/ Sodium Phosphate (Fleet Enema) 133 ml DAILY PRN MO CONSTIPATION; Start 07/06/16 at 20:30 Zolpidem Tartrate (Ambien) 5 mg QHS PRN PO SLEEP; Start 07/06/16 at 20:30 Heparin Sodium (Porcine) (Heparin (5000 Units/0.5 ml)) 5,000 unit Q12 SC Last administered on 07/07/16 08:35; Admin Dose 5,000 UNIT; Start 07/06/16 at 21:00 Diagnostic Test (Pha) (Accu-Chek) 1 ea 02 XX ; Start 07/07/16 at 02:00 Sodium Hypochlorite (Dakin'S (Dilute 1/40%)) 1 applic DAILY IRR Last administered on 07/07/16 16:54; Admin Dose 1 APPLIC; Start 07/07/16 at 09:00 Miscellaneous Information 1 ea NOTE XX ; Start 07/06/16 at 21:00 Glucose (Glutose) 15 gm Q15M PRN PO DECREASED GLUCOSE; Start 07/06/16 at 21:00 Glucose (Glutose) 22.5 gm Q15M PRN PO DECREASED GLUCOSE; Start 07/06/16 at 21: 00 Dextrose (D50w Syringe) 25 ml Q15M PRN IV DECREASED GLUCOSE; Start 07/06/16 at 21:00 Dextrose (D50w Syringe) 50 ml Q15M PRN IV DECREASED GLUCOSE; Start 07/06/16 at 21:00 Glucagon (Glucagen) 1 mg Q15M PRN IM DECREASED GLUCOSE; Start 07/06/16 at 21:00 Glucose (Glutose) 15 gm Q15M PRN BUCCAL DECREASED GLUCOSE; Start 07/06/16 at 21 :00 Silver Sulfadiazine 1 applic 1 applic BID TOP Last administered on 07/07/16 08 :26; Admin Dose 1 APPLIC; Start 07/06/16 at 21:30 Vancomycin HCl/ Sodium Chloride (Vancocin/NS) 250 ml @ 83.333 mls/ hr Q12H IVPB Last administered on 07/07/16 14:40; Admin Dose 83.333 MLS/HR; Start 02/11 at 12:30 Miscellaneous Information 1 ONCE ONCE XX ; Start 07/08/16 at 11:30; Stop at 11:31 Dextrose/Sodium Chloride (D5-1/2ns) 1,000 ml @ 50 mls/hr Q20H ONCE IV ; Start 07/07/16 at 14:00; Stop 07/08/16 at 09:59 FLORINDA GOMEZ MD July 07, 2016 19:23
[2016-07-07] MEDS ORDERED: VANCOMYCIN 1 GM in NS 250 ML IVPB SCH (20:00)
[2016-07-07 20:29] VITALS: BP 147/67; RESP 19
[2016-07-07] MEDS: HYDROCODONE/APAP (5/325) TAB PO PRN (20:58)
[2016-07-07] MEDS: ATORVASTATIN 40 MG TAB PO SCH (20:58)
[2016-07-07] MEDS: INSULIN GLARGINE [LANtus] 3 ML PEN SC SCH (21:01)
[2016-07-08] MEDS: VANCOMYCIN 1.25 GM in SOD CHLORIDE 0.9% 250 ML IVPB SCH ×2 (00:39→13:18)
[2016-07-08] MEDS: ACCU-CHEK XX SCH (02:12)
[2016-07-08] MEDS: PANTOPRAZOLE (EC) 40 MG TAB PO SCH (05:34)
[2016-07-08 07:34] VITALS: BP 141/65; RESP 20
[2016-07-08] MEDS: INSULIN ASPART [NOVOLOG] 3 ML PEN SC SCH ×4 (08:00→21:16)
[2016-07-08] MEDS: BENAZEPRIL 20 MG TAB PO SCH (08:47)
[2016-07-08] MEDS: HEPARIN 5,000 UNIT/0.5 ML VIAL SC SCH ×2 (08:48→21:17)
[2016-07-08] MEDS: SODIUM HYPOCHLORITE 1/40% 1L IRRIG IRR SCH (08:49)
[2016-07-08] MEDS: SILVER SULFADIAZINE 1% 25 GM CR TOP SCH ×2 (08:49→21:00)
--- NOTE | 2016-07-08 11:39 | PN ---
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 Left foot third toe osteomyelitis with bilateral foot cellulitis, not healing very well. 2. Severe peripheral arterial disease, status post endovascular repair by Dr. San. 3. History of diabetes mellitus type 2 complicated by diabetic neuropathy. 4. History of hypertension. 5. History of hyperlipidemia. 6. History of recent admission at [facility] from 06/10/2016 to 06/20/2016 for a left foot osteomyelitis and had a PICC line placement. She was discharged home with IV antibiotics, vancomycin, for methicillin resistant Staphylococcus aureus osteomyelitis. 7. Severe sepsis with lactic acid 4.8 on admission secondary to left foot osteomyelitis. PLAN: Continue IV abx zosyn and vancomycin CRP still high BP stable case management to set up another home health for IV abx at home, PICC line ( she lost her previous home health due to insurance reasons) S/p Podiatry consult, appreciate help ,ID also followed up on patient Pt lives alone at home, her daughter works time study technologist and not available for help athome she needs Home health for IV abx for left second toe and right third toe ulceration and peripheral arterial disease with dry gangrene and underlying osteomyelitis. IV vancomycin 1.25gram IV BID x 6 weeks till08/18/2016, PICC line, Left foot care , physical therapy date of encounter: 07/08/2016 Case management consutl requested for it. Subjective 24 Hr Interval Summary Free Text/Dictation c/o left foot pain,CRP still high, ESR improving Exam/Review of Systems Vital Signs Vitals Vital Signs Date Time Temp Pulse Resp B/P Pulse Ox O2 Delivery O2 Flow Rate FiO2 07/08/16 07:34 97.7 79 20 141/65 98 07/08/16 05:42 2.0 07/06/16 20:00 Room Air Intake and Output 07/07/16 07/07/16 07/08/16 15:00 23:00 07:00 Intake Total 250 ml 610 ml Balance 250 ml 610 ml Exam GENERAL: Awake, alert. Mild distress due to the pain. HEENT: Normal. Oropharynx clear. Pupils equal, round, reactive to light and accommodation. Extraocular muscles are intact. NECK: Supple, no JVD, no lymphadenopathy. LUNGS: Clear to auscultation. No crackles, no wheezes. HEART: S1, S2, with regular rhythm, no murmur. ABDOMEN: Soft, nontender, nondistended. Bowel sounds are present. EXTREMITIES: The patient has necrotic wounds on her left toes bilaterally. Results Result Diagram: 07/07/16 0433 07/07/16 0433 Results 24 hrs Laboratory Tests Test 07/07/16 11:53 07/07/16 17:03 07/07/16 20:56 07/08/16 01:35 Bedside Glucose 283 H 162 321 H 152 Test 07/08/16 07:59 Bedside Glucose 139 Medications Medications Current Medications Atorvastatin Calcium (Lipitor) 40 mg HS PO Last administered on 07/07/16 20:58 ; Admin Dose 40 MG; Start 07/06/16 at 21:00 Benazepril HCl (Lotensin) 20 mg DAILY PO Last administered on 07/08/16 08:47; Admin Dose 20 MG; Start 07/07/16 at 09:00 Insulin Glargine (Lantus) 25 unit QHS SC Last administered on 07/07/16 21:01; Admin Dose 25 UNIT; Start 07/06/16 at 21:30 Pantoprazole (Protonix Tab) 40 mg DAILY@06 PO Last administered on 07/08/16 05 :34; Admin Dose 40 MG; Start 07/07/16 at 06:00 Tramadol HCl (Ultram) 50 mg Q6H PRN PO PAIN LEVEL 1-5; Start 07/06/16 at 20:30 Ondansetron HCl (Zofran Inj) 4 mg Q4H PRN IV NAUSEA AND/OR VOMITING; Start 01/12 at 20:30 Acetaminophen (Tylenol Tab) 650 mg Q6H PRN PO PAIN LEVEL 1-3 OR FEVER; Start at 20:30 Acetaminophen/ Hydrocodone Bitart ([place] (5/325)) 1 tab Q6H PRN PO MODERATE PAIN LEVEL 4-6 Last administered on 07/07/16 20:58; Admin Dose 1 TAB; Start 01/12 at 20:30 Morphine Sulfate (morphine) 1 mg Q4H PRN IV SEVERE PAIN LEVEL 7-10; Start 07/06 at 20:30 Docusate Sodium (Colace) 100 mg Q12H PRN PO CONSTIPATION; Start 07/06/16 at 20: 30 Magnesium Hydroxide (Milk Of Mag) 30 ml DAILY PRN PO CONSTIPATION; Start at 20:30 Bisacodyl (Dulcolax) 5 mg DAILY PRN PO CONSTIPATION; Start 07/06/16 at 20:30 Bisacodyl (Dulcolax Supp) 10 mg DAILY PRN [place] CONSTIPATION; Start 07/06/16 at 20 :30 Sodium Biphosphate/ Sodium Phosphate (Fleet Enema) 133 ml DAILY PRN [place] CONSTIPATION; Start 07/06/16 at 20:30 Zolpidem Tartrate (Ambien) 5 mg QHS PRN PO SLEEP; Start 07/06/16 at 20:30 Heparin Sodium (Porcine) (Heparin (5000 Units/0.5 ml)) 5,000 unit Q12 SC Last administered on 07/08/16 08:48; Admin Dose 5,000 UNIT; Start 07/06/16 at 21:00 Diagnostic Test (Pha) (Accu-Chek) 1 ea 02 XX Last administered on 07/08/16 02: 12; Admin Dose 1 EA; Start 07/07/16 at 02:00 Sodium Hypochlorite (Dakin'S (Dilute 1/40%)) 1 applic DAILY IRR Last administered on 07/08/16 08:49; Admin Dose 1 APPLIC; Start 07/07/16 at 09:00 Miscellaneous Information 1 ea NOTE XX ; Start 07/06/16 at 21:00 Glucose (Glutose) 15 gm Q15M PRN PO DECREASED GLUCOSE; Start 07/06/16 at 21:00 Glucose (Glutose) 22.5 gm Q15M PRN PO DECREASED GLUCOSE; Start 07/06/16 at 21: 00 Dextrose (D50w Syringe) 25 ml Q15M PRN IV DECREASED GLUCOSE; Start 07/06/16 at 21:00 Dextrose (D50w Syringe) 50 ml Q15M PRN IV DECREASED GLUCOSE; Start 07/06/16 at 21:00 Glucagon (Glucagen) 1 mg Q15M PRN IM DECREASED GLUCOSE; Start 07/06/16 at 21:00 Glucose (Glutose) 15 gm Q15M PRN BUCCAL DECREASED GLUCOSE; Start 07/06/16 at 21 :00 Silver Sulfadiazine 1 applic 1 applic BID TOP Last administered on 07/08/16 08 :49; Admin Dose 1 APPLIC; Start 07/06/16 at 21:30 Vancomycin HCl/ Sodium Chloride (Vancocin/NS) 250 ml @ 83.333 mls/ hr Q12H IVPB Last administered on 07/08/16 00:39; Admin Dose 83.333 MLS/HR; Start 02/11 at 12:30 MARIAN BURNS MD July 08, 2016 11:39
[2016-07-08] MEDS: HYDROCODONE/APAP (5/325) TAB PO PRN ×2 (12:00→18:06)
--- NOTE | 2016-07-08 18:36 | CONS ---
Date/Time of Note Date/Time of Note DATE: 07/08/16 TIME: 18:32 Assessment/Plan Assessment/Plan Chief Complaint/Hosp Course Rt 3rd toe and distal aspect of Lt 2nd toe with ulceration measuring approximately 2 x 3 mm with dry gangrene and bone exposure. Problems: Cont'd Hospitalization Reason: Planned for Surgical debridement on 07/10/[address] Lee. Consultation Date/Type/Reason Admit Date/Time July 06, 2016 at 17:35 Initial Consult Date 07/07/16 Type of Consultation: Endovac and Int Card Reason for Consultation Coverage for Dr. Lee. Rt 3rd toe and Lt 2nd toe ulceration and gangrene. Scheduled for Sx 07/10/2016. 24 HR Interval Summary Free Text/Dictation Hyperkeratotic lesion to the Rt 3rd toe and distal aspect of Lt 2nd toe with ulceration measuring approximately 2 x 3 mm with dry gangrene and bone exposure. No evidence of cyanosis or edema. Pedal pulses are diminished. The patient with a 2+ popliteal pulse bilaterally. No lymphangitis. Exam/Review of Systems Vital Signs Vitals Vital Signs Date Time Temp Pulse Resp B/P Pulse Ox O2 Delivery O2 Flow Rate FiO2 07/08/16 07:34 97.7 79 20 141/65 98 07/08/16 05:42 2.0 07/06/16 20:00 Room Air Intake and Output 07/07/16 07/07/16 07/08/16 15:00 23:00 07:00 Intake Total 250 ml 610 ml Balance 250 ml 610 ml Results Result Diagram: 07/07/16 0433 07/07/16 0433 Results 24 hrs Laboratory Tests Test 07/07/16 20:56 07/08/16 01:35 07/08/16 07:59 07/08/16 11:30 Bedside Glucose 321 H 152 139 Vancomycin Level Trough 14.1 Test 07/08/16 12:03 07/08/16 16:59 Bedside Glucose 245 H 160 Medications Medications Current Medications Atorvastatin Calcium (Lipitor) 40 mg HS PO Last administered on 07/07/16 20:58 ; Admin Dose 40 MG; Start 07/06/16 at 21:00 Benazepril HCl (Lotensin) 20 mg DAILY PO Last administered on 07/08/16 08:47; Admin Dose 20 MG; Start 07/07/16 at 09:00 Insulin Glargine (Lantus) 25 unit QHS SC Last administered on 07/07/16 21:01; Admin Dose 25 UNIT; Start 07/06/16 at 21:30 Pantoprazole (Protonix Tab) 40 mg DAILY@06 PO Last administered on 07/08/16 05 :34; Admin Dose 40 MG; Start 07/07/16 at 06:00 Tramadol HCl (Ultram) 50 mg Q6H PRN PO PAIN LEVEL 1-5; Start 07/06/16 at 20:30 Ondansetron HCl (Zofran Inj) 4 mg Q4H PRN IV NAUSEA AND/OR VOMITING; Start 01/12 at 20:30 Acetaminophen (Tylenol Tab) 650 mg Q6H PRN PO PAIN LEVEL 1-3 OR FEVER; Start at 20:30 Acetaminophen/ Hydrocodone Bitart ([place] (5/325)) 1 tab Q6H PRN PO MODERATE PAIN LEVEL 4-6 Last administered on 07/08/16 18:06; Admin Dose 1 TAB; Start 01/12 at 20:30 Morphine Sulfate (morphine) 1 mg Q4H PRN IV SEVERE PAIN LEVEL 7-10; Start 07/06 at 20:30 Docusate Sodium (Colace) 100 mg Q12H PRN PO CONSTIPATION; Start 07/06/16 at 20: 30 Magnesium Hydroxide (Milk Of Mag) 30 ml DAILY PRN PO CONSTIPATION; Start at 20:30 Bisacodyl (Dulcolax) 5 mg DAILY PRN PO CONSTIPATION; Start 07/06/16 at 20:30 Bisacodyl (Dulcolax Supp) 10 mg DAILY PRN [place] CONSTIPATION; Start 07/06/16 at 20 :30 Sodium Biphosphate/ Sodium Phosphate (Fleet Enema) 133 ml DAILY PRN [place] CONSTIPATION; Start 07/06/16 at 20:30 Zolpidem Tartrate (Ambien) 5 mg QHS PRN PO SLEEP; Start 07/06/16 at 20:30 Heparin Sodium (Porcine) (Heparin (5000 Units/0.5 ml)) 5,000 unit Q12 SC Last administered on 07/08/16 08:48; Admin Dose 5,000 UNIT; Start 07/06/16 at 21:00 Diagnostic Test (Pha) (Accu-Chek) 1 ea 02 XX Last administered on 07/08/16 02: 12; Admin Dose 1 EA; Start 07/07/16 at 02:00 Sodium Hypochlorite (Dakin'S (Dilute 1/40%)) 1 applic DAILY IRR Last administered on 07/08/16 08:49; Admin Dose 1 APPLIC; Start 07/07/16 at 09:00 Miscellaneous Information 1 ea NOTE XX ; Start 07/06/16 at 21:00 Glucose (Glutose) 15 gm Q15M PRN PO DECREASED GLUCOSE; Start 07/06/16 at 21:00 Glucose (Glutose) 22.5 gm Q15M PRN PO DECREASED GLUCOSE; Start 07/06/16 at 21: 00 Dextrose (D50w Syringe) 25 ml Q15M PRN IV DECREASED GLUCOSE; Start 07/06/16 at 21:00 Dextrose (D50w Syringe) 50 ml Q15M PRN IV DECREASED GLUCOSE; Start 07/06/16 at 21:00 Glucagon (Glucagen) 1 mg Q15M PRN IM DECREASED GLUCOSE; Start 07/06/16 at 21:00 Glucose (Glutose) 15 gm Q15M PRN BUCCAL DECREASED GLUCOSE; Start 07/06/16 at 21 :00 Silver Sulfadiazine 1 applic 1 applic BID TOP Last administered on 07/08/16 08 :49; Admin Dose 1 APPLIC; Start 07/06/16 at 21:30 Vancomycin HCl/ Sodium Chloride (Vancocin/NS) 250 ml @ 83.333 mls/ hr Q12H IVPB Last administered on 07/08/16 13:18; Admin Dose 83.333 MLS/HR; Start 02/11 at 12:30 ANTONY CHAVEZ DPM July 08, 2016 18:36
[2016-07-08 21:13] VITALS: BP 138/61; RESP 17
[2016-07-08] MEDS: INSULIN GLARGINE [LANtus] 3 ML PEN SC SCH (21:16)
[2016-07-08] MEDS: ATORVASTATIN 40 MG TAB PO SCH (21:17)
--- NOTE | 2016-07-08 22:09 | PN ---
DATE: 07/08/2016 SUBJECTIVE: No acute changes overnight. The patient is alert, feels good, looks comfortable, no fe vers. No labs this morning. MICROBIOLOGY: Blood culture, 1 set growing gram-positive cocci in clusters. ANTIMICROBIALS: Patient is on IV vancomycin. PHYSICAL EXAMINATION: GENERAL: Well-nourished, well-developed, elderly woman who is alert, in no distress. HEENT: Head atraumatic, normocephalic. Sclerae anicteric. Buccal mucosa dry. NECK: Supple, trachea midline. CHEST: Rise symmetrical. Breath sounds clear. HEART: S1, S2. ABDOMEN: Soft. Bowel tones present. EXTREMITIES: Left foot toe dressing intact. ASSESSMENT: 1. Gram-positive cocci bacteremia, possibly contaminant. 2. Left second toe and right third toe ulceration with osteomyelitis. 3. Diabetes. 4. Peripheral arterial disease. 5. Dementia. PLAN: The patient remains stable. She is on appropriate antimicrobial. Final cultures pending. P odiatry on case. Dictated By: JOSELITO AGARWAL SOLID PROPELLANT PROCESSOR for [employer]T BRITO/LEI Conf#: [id number] DID#: [id number]
[2016-07-09] MEDS: VANCOMYCIN 1.25 GM in SOD CHLORIDE 0.9% 250 ML IVPB SCH ×2 (01:03→12:48)
[2016-07-09] MEDS: ACCU-CHEK XX SCH (02:00)
[2016-07-09] MEDS: PANTOPRAZOLE (EC) 40 MG TAB PO SCH (05:39)
[2016-07-09] MEDS: HYDROCODONE/APAP (5/325) TAB PO PRN ×2 (05:40→20:05)
[2016-07-09 07:30] VITALS: BP 143/66; RESP 16
[2016-07-09] MEDS: HEPARIN 5,000 UNIT/0.5 ML VIAL SC SCH ×2 (09:11→20:12)
[2016-07-09] MEDS: INSULIN ASPART [NOVOLOG] 3 ML PEN SC SCH ×4 (09:11→20:14)
[2016-07-09] MEDS: BENAZEPRIL 20 MG TAB PO SCH (09:12)
[2016-07-09] MEDS: SILVER SULFADIAZINE 1% 25 GM CR TOP SCH ×2 (09:19→20:22)
[2016-07-09] MEDS: SODIUM HYPOCHLORITE 1/40% 1L IRRIG IRR SCH (09:20)
--- NOTE | 2016-07-09 12:00 | PN ---
Date/Time of Note Date/Time of Note DATE: 07/09/16 TIME: 11:44 Assessment/Plan VTE Prophylaxis VTE Prophylaxis Intervention: other Lines/Catheters [facility] P[facility] Line Central line still needed: Yes Assessment/Plan Assessment/Plan 1. Left foot third toe osteomyelitis with bilateral foot cellulitis, not healing very well. - possible plan for left great toe debridement by Dr Matos 2. Severe peripheral arterial disease, status post endovascular repair by Dr. San. 3. History of diabetes mellitus type 2 complicated by diabetic neuropathy. 4. History of hypertension. 5. History of hyperlipidemia. 6. History of recent admission at [facility] from 06/10/2016 to 06/20/2016 for a left foot osteomyelitis and had a PICC line placement. She was discharged home with IV antibiotics, vancomycin, for methicillin resistant Staphylococcus aureus osteomyelitis. 7. Severe sepsis with lactic acid 4.8 on admission secondary to left foot osteomyelitis. PLAN: - possible plan for left great toe debridement by Dr Matos - Continue IV abx zosyn and vancomycin - CRP still high - BP stable case management to set up another home health for IV abx at home, PICC line ( she lost her previous home health due to insurance reasons) S/p Podiatry consult, appreciate help ,ID also followed up on patient . Plan of care dw Dr Garcia/staff/family- Pt lives alone at home, her daughter works power regulator and not available for help athome she needs Home health for IV abx for left second toe and right third toe ulceration and peripheral arterial disease with dry gangrene and underlying osteomyelitis. IV vancomycin 1.25gram IV BID x 6 weeks till08/18/2016, PICC line, Left foot care , physical therapy date of encounter: 07/08/2016 Case management consutl requested for it. Further recommendations depend upon patient's clinical course. Total time spent is 30 mins in reviewing patients chart/DW Dr Priscilla Westbrook;/staff/patient. Subjective 24 Hr Interval Summary Free Text/Dictation sitting up in bed, afebrile, possible plan for left great toe debridement by Dr Matos, family at bed side- all Qs answered. dw staff- no acute events reported overnight. Eyes: no complaints ENT: no complaints Respiratory: no complaints Cardiovascular: no complaints Gastrointestinal: no complaints Genitourinary: no complaints Musculoskeletal: bone/joint pain Skin: no complaints Neurologic: no complaints Endocrine: no complaints Psychological: nl mood/affect Immunologic: no complaints Exam/Review of Systems Vital Signs Vitals Vital Signs Date Time Temp Pulse Resp B/P Pulse Ox O2 Delivery O2 Flow Rate FiO2 07/09/16 07:30 98.1 74 16 143/66 98 07/08/16 19:00 2.0 07/06/16 20:00 Room Air Intake and Output 07/08/16 07/08/16 07/09/16 15:00 23:00 07:00 Intake Total 850 ml 570 ml Balance 850 ml 570 ml Exam Constitutional: oriented, well developed Head: atraumatic Eyes: EOMI, nl sclera ENMT: nl external ears & nose Neck: non-tender Respiratory: clear to auscultation Cardiovascular: nl pulses Gastrointestinal: non-tender, soft Musculoskeletal: other (ulcer- possible plan for left great toe debridement by Dr Matos) Neurological: nl mental status Skin: other Lymph: nontender Results Result Diagram: 07/07/16 0433 07/07/16 0433 Results 24 hrs Laboratory Tests Test 07/08/16 12:03 07/08/16 16:59 07/08/16 20:26 07/09/16 01:05 Bedside Glucose 245 H 160 242 H 282 H Test 07/09/16 08:32 Bedside Glucose 197 Medications Medications Current Medications Atorvastatin Calcium (Lipitor) 40 mg HS PO Last administered on 07/08/16 21:17 ; Admin Dose 40 MG; Start 07/06/16 at 21:00 Benazepril HCl (Lotensin) 20 mg DAILY PO Last administered on 07/09/16 09:12; Admin Dose 20 MG; Start 07/07/16 at 09:00 Insulin Glargine (Lantus) 25 unit QHS SC Last administered on 07/08/16 21:16; Admin Dose 25 UNIT; Start 07/06/16 at 21:30 Pantoprazole (Protonix Tab) 40 mg DAILY@06 PO Last administered on 07/09/16 05 :39; Admin Dose 40 MG; Start 07/07/16 at 06:00 Tramadol HCl (Ultram) 50 mg Q6H PRN PO PAIN LEVEL 1-5; Start 07/06/16 at 20:30 Ondansetron HCl (Zofran Inj) 4 mg Q4H PRN IV NAUSEA AND/OR VOMITING; Start 01/12 at 20:30 Acetaminophen (Tylenol Tab) 650 mg Q6H PRN PO PAIN LEVEL 1-3 OR FEVER; Start at 20:30 Acetaminophen/ Hydrocodone Bitart ([place] (5/325)) 1 tab Q6H PRN PO MODERATE PAIN LEVEL 4-6 Last administered on 07/09/16 05:40; Admin Dose 1 TAB; Start 01/12 at 20:30 Morphine Sulfate (morphine) 1 mg Q4H PRN IV SEVERE PAIN LEVEL 7-10; Start 07/06 at 20:30 Docusate Sodium (Colace) 100 mg Q12H PRN PO CONSTIPATION; Start 07/06/16 at 20: 30 Magnesium Hydroxide (Milk Of Mag) 30 ml DAILY PRN PO CONSTIPATION; Start at 20:30 Bisacodyl (Dulcolax) 5 mg DAILY PRN PO CONSTIPATION; Start 07/06/16 at 20:30 Bisacodyl (Dulcolax Supp) 10 mg DAILY PRN [place] CONSTIPATION; Start 07/06/16 at 20 :30 Sodium Biphosphate/ Sodium Phosphate (Fleet Enema) 133 ml DAILY PRN [place] CONSTIPATION; Start 07/06/16 at 20:30 Zolpidem Tartrate (Ambien) 5 mg QHS PRN PO SLEEP; Start 07/06/16 at 20:30 Heparin Sodium (Porcine) (Heparin (5000 Units/0.5 ml)) 5,000 unit Q12 SC Last administered on 07/09/16 09:11; Admin Dose 5,000 UNIT; Start 07/06/16 at 21:00 Diagnostic Test (Pha) (Accu-Chek) 1 ea 02 XX Last administered on 07/08/16 02: 12; Admin Dose 1 EA; Start 07/07/16 at 02:00 Sodium Hypochlorite (Dakin'S (Dilute 1/40%)) 1 applic DAILY IRR Last administered on 07/09/16 09:20; Admin Dose 1 APPLIC; Start 07/07/16 at 09:00 Miscellaneous Information 1 ea NOTE XX ; Start 07/06/16 at 21:00 Glucose (Glutose) 15 gm Q15M PRN PO DECREASED GLUCOSE; Start 07/06/16 at 21:00 Glucose (Glutose) 22.5 gm Q15M PRN PO DECREASED GLUCOSE; Start 07/06/16 at 21: 00 Dextrose (D50w Syringe) 25 ml Q15M PRN IV DECREASED GLUCOSE; Start 07/06/16 at 21:00 Dextrose (D50w Syringe) 50 ml Q15M PRN IV DECREASED GLUCOSE; Start 07/06/16 at 21:00 Glucagon (Glucagen) 1 mg Q15M PRN IM DECREASED GLUCOSE; Start 07/06/16 at 21:00 Glucose (Glutose) 15 gm Q15M PRN BUCCAL DECREASED GLUCOSE; Start 07/06/16 at 21 :00 Silver Sulfadiazine 1 applic 1 applic BID TOP Last administered on 07/09/16 09 :19; Admin Dose 1 APPLIC; Start 07/06/16 at 21:30 Vancomycin HCl/ Sodium Chloride (Vancocin/NS) 250 ml @ 83.333 mls/ hr Q12H IVPB Last administered on 07/09/16 01:03; Admin Dose 83.333 MLS/HR; Start 02/11 at 12:30 CALEB REINOSO July 09, 2016 11:54
--- NOTE | 2016-07-09 16:06 | CONS ---
Date/Time of Note Date/Time of Note DATE: 07/09/16 TIME: 16:03 Assessment/Plan Assessment/Plan Chief Complaint/Hosp Course SUBJECTIVE: No acute changes overnight. The patient is alert, feels good, looks comfortable, no fevers. MICROBIOLOGY: Blood culture, 1 set growing Staph. ANTIMICROBIALS: IV vancomycin. PHYSICAL EXAMINATION: GENERAL: Well-nourished, well-developed, elderly woman who is alert, in no distress. HEENT: Head atraumatic, normocephalic. Sclerae anicteric. Buccal mucosa dry. NECK: Supple, trachea midline. CHEST: Rise symmetrical. Breath sounds clear. HEART: S1, S2. ABDOMEN: Soft. Bowel tones present. EXTREMITIES: Left foot toe dressing intact. ASSESSMENT: 1. Gram-positive cocci bacteremia, cw contaminant. 2. Left second toe and right third toe ulceration with osteomyelitis==> previous cx + MRSA. 3. Diabetes. 4. Peripheral arterial disease. 5. Dementia. PLAN: The patient remains stable. Continue abx. F/u Podiatry rec-s. DW staff Problems: Consultation Date/Type/Reason Admit Date/Time July 06, 2016 at 17:35 Initial Consult Date 07/07/16 Type of Consultation: ID Exam/Review of Systems Vital Signs Vitals Vital Signs Date Time Temp Pulse Resp B/P Pulse Ox O2 Delivery O2 Flow Rate FiO2 07/09/16 07:30 98.1 74 16 143/66 98 07/08/16 19:00 2.0 07/06/16 20:00 Room Air Intake and Output 07/08/16 07/08/16 07/09/16 15:00 23:00 07:00 Intake Total 850 ml 570 ml Balance 850 ml 570 ml Results Result Diagram: 07/07/16 0433 07/07/16 0433 Results 24 hrs Laboratory Tests Test 07/08/16 16:59 07/08/16 20:26 07/09/16 01:05 07/09/16 08:32 Bedside Glucose 160 242 H 282 H 197 Test 07/09/16 12:45 Bedside Glucose 309 H Medications Medications Current Medications Atorvastatin Calcium (Lipitor) 40 mg HS PO Last administered on 07/08/16t 21:17 ; Admin Dose 40 MG; Start 07/06/16 at 21:00 Benazepril HCl (Lotensin) 20 mg DAILY PO Last administered on 07/09/16 09:12; Admin Dose 20 MG; Start 07/07/16 at 09:00 Insulin Glargine (Lantus) 25 unit QHS SC Last administered on 07/08/16 21:16; Admin Dose 25 UNIT; Start 07/06/16 at 21:30 Pantoprazole (Protonix Tab) 40 mg DAILY@06 PO Last administered on 07/09/16 05 :39; Admin Dose 40 MG; Start 07/07/16 at 06:00 Tramadol HCl (Ultram) 50 mg Q6H PRN PO PAIN LEVEL 1-5; Start 07/06/16 at 20:30 Ondansetron HCl (Zofran Inj) 4 mg Q4H PRN IV NAUSEA AND/OR VOMITING; Start 01/12 at 20:30 Acetaminophen (Tylenol Tab) 650 mg Q6H PRN PO PAIN LEVEL 1-3 OR FEVER; Start at 20:30 Acetaminophen/ Hydrocodone Bitart ([place] (5/325)) 1 tab Q6H PRN PO MODERATE PAIN LEVEL 4-6 Last administered on 07/09/16 05:40; Admin Dose 1 TAB; Start 01/12 at 20:30 Morphine Sulfate (morphine) 1 mg Q4H PRN IV SEVERE PAIN LEVEL 7-10; Start 07/06 at 20:30 Docusate Sodium (Colace) 100 mg Q12H PRN PO CONSTIPATION; Start 07/06/16 at 20: 30 Magnesium Hydroxide (Milk Of Mag) 30 ml DAILY PRN PO CONSTIPATION; Start at 20:30 Bisacodyl (Dulcolax) 5 mg DAILY PRN PO CONSTIPATION; Start 07/06/16 at 20:30 Bisacodyl (Dulcolax Supp) 10 mg DAILY PRN [place] CONSTIPATION; Start 07/06/16 at 20 :30 Sodium Biphosphate/ Sodium Phosphate (Fleet Enema) 133 ml DAILY PRN [place] CONSTIPATION; Start 07/06/16 at 20:30 Zolpidem Tartrate (Ambien) 5 mg QHS PRN PO SLEEP; Start 07/06/16 at 20:30 Heparin Sodium (Porcine) (Heparin (5000 Units/0.5 ml)) 5,000 unit Q12 SC Last administered on 07/09/16 09:11; Admin Dose 5,000 UNIT; Start 07/06/16 at 21:00 Diagnostic Test (Pha) (Accu-Chek) 1 ea 02 XX Last administered on 07/08/16 02: 12; Admin Dose 1 EA; Start 07/07/16 at 02:00 Sodium Hypochlorite (Dakin'S (Dilute 1/40%)) 1 applic DAILY IRR Last administered on 07/09/16 09:20; Admin Dose 1 APPLIC; Start 07/07/16 at 09:00 Miscellaneous Information 1 ea NOTE XX ; Start 07/06/16 at 21:00 Glucose (Glutose) 15 gm Q15M PRN PO DECREASED GLUCOSE; Start 07/06/16 at 21:00 Glucose (Glutose) 22.5 gm Q15M PRN PO DECREASED GLUCOSE; Start 07/06/16 at 21: 00 Dextrose (D50w Syringe) 25 ml Q15M PRN IV DECREASED GLUCOSE; Start 07/06/16 at 21:00 Dextrose (D50w Syringe) 50 ml Q15M PRN IV DECREASED GLUCOSE; Start 07/06/16 at 21:00 Glucagon (Glucagen) 1 mg Q15M PRN IM DECREASED GLUCOSE; Start 07/06/16 at 21:00 Glucose (Glutose) 15 gm Q15M PRN BUCCAL DECREASED GLUCOSE; Start 07/06/16 at 21 :00 Silver Sulfadiazine 1 applic 1 applic BID TOP Last administered on 07/09/16 09 :19; Admin Dose 1 APPLIC; Start 07/06/16 at 21:30 Vancomycin HCl/ Sodium Chloride (Vancocin/NS) 250 ml @ 83.333 mls/ hr Q12H IVPB Last administered on 07/09/16 12:48; Admin Dose 83.333 MLS/HR; Start 02/11 at 12:30 JOSELITO AGARWAL NP July 09, 2016 16:06
[2016-07-09 19:54] VITALS: BP 167/70; RESP 20
[2016-07-09] MEDS: ATORVASTATIN 40 MG TAB PO SCH (20:10)
[2016-07-09] MEDS: INSULIN GLARGINE [LANtus] 3 ML PEN SC SCH (20:13)
[2016-07-09] MEDS ORDERED: AMLODIPINE 10 MG TAB PO ONE (23:00)
[2016-07-10] VITALS (16 sets, daily range): BP systolic 117–157; BP diastolic 47–86; PULSE 79–91; RESP 14–22
[2016-07-10] MEDS: VANCOMYCIN 1.25 GM in SOD CHLORIDE 0.9% 250 ML IVPB SCH ×2 (00:37→12:17)
[2016-07-10] MEDS: ACCU-CHEK XX SCH (02:08)
[2016-07-10] MEDS: PANTOPRAZOLE (EC) 40 MG TAB PO SCH (05:35)
[2016-07-10 06:42] LABS: ADD SCAN DIFF NO
[2016-07-10 06:47] LABS: BASOPHILS % 0.5 % (0.0-2.0); EOSINOPHILS # 0.1 10^3/ul (0.0-0.5); EOSINOPHILS % 2.6 % (0.0-7.0); HEMATOCRIT 31.9 % (37.0-47.0); HEMOGLOBIN 11.1 g/dl (12.0-16.0); LYMPHOCYTES # 1.8 10^3/ul (0.8-2.9); LYMPHOCYTES % 42.5 % (15.0-51.0); MEAN CORPUSCULAR HEMOGLOBIN 30.2 pg (29.0-33.0); MEAN CORPUSCULAR HGB CONC 34.8 g/dl (32.0-37.0); MEAN CORPUSCULAR VOLUME 86.9 fl (82.0-101.0); MEAN PLATELET VOLUME 9.7 fl (7.4-10.4); MONOCYTE # 0.3 10^3/ul (0.3-0.9); MONOCYTES % 7.7 % (0.0-11.0); NEUTROPHIL # 1.9 10^3/ul (1.6-7.5); NEUTROPHILS % 46.5 % (39.0-77.0); PLATELET COUNT 196 10^3/UL (140-415); RED BLOOD COUNT 3.67 10^6/ul (4.20-5.40); RED CELL DISTRIBUTION WIDTH 11.9 % (11.5-14.5); WHITE BLOOD COUNT 4.2 10^3/ul (4.8-10.8)
[2016-07-10 07:04] LABS: POTASSIUM 3.6 mmol/L (3.5-5.1)
[2016-07-10 07:06] LABS: CREATININE 0.65 mg/dl (0.44-1.00)
[2016-07-10 07:07] LABS: CALCIUM 9.1 mg/dl (8.4-10.2)
[2016-07-10] MEDS: INSULIN ASPART [NOVOLOG] 3 ML PEN SC SCH ×4 (07:52→20:28)
[2016-07-10] MEDS: SODIUM HYPOCHLORITE 1/40% 1L IRRIG IRR SCH (08:26)
[2016-07-10] MEDS: HEPARIN 5,000 UNIT/0.5 ML VIAL SC SCH ×2 (08:29→20:27)
[2016-07-10] MEDS: BENAZEPRIL 20 MG TAB PO SCH (08:29)
[2016-07-10] MEDS: AMLODIPINE 10 MG TAB PO SCH (08:29)
[2016-07-10] MEDS: HYDROCODONE/APAP (5/325) TAB PO PRN ×2 (08:29→20:21)
[2016-07-10] MEDS: SILVER SULFADIAZINE 1% 25 GM CR TOP SCH ×2 (08:30→20:29)
--- NOTE | 2016-07-10 08:55 | CONS ---
Date/Time of Note Date/Time of Note DATE: 07/10/16 TIME: 08:54 Consult Date/Type/Reason Admit Date/Time July 06, 2016 at 17:35 Initial Consult Date 07/07/16 Type of Consultation: Cardiology Objective Vital Signs Date Time Temp Pulse Resp B/P Pulse Ox O2 Delivery O2 Flow Rate FiO2 07/10/16 07:15 98.0 81 16 121/61 96 07/10/16 03:43 2.0 07/06/16 20:00 Room Air Intake and Output 07/09/16 07/09/16 07/10/16 15:00 23:00 07:00 Intake Total 1000 ml 600 ml Balance 1000 ml 600 ml Results/Medications Result Diagram: 07/10/16 0520 07/10/16 0520 Results 24 hrs Laboratory Tests Test 07/09/16 12:45 07/09/16 17:45 07/09/16 20:08 07/10/16 02:06 Bedside Glucose 309 H 187 258 H 177 Test 07/10/16 05:20 07/10/16 07:44 White Blood Count 4.2 L Red Blood Count 3.67 L Hemoglobin 11.1 L Hematocrit 31.9 L Mean Corpuscular Volume 86.9 Mean Corpuscular Hemoglobin 30.2 Mean Corpuscular Hemoglobin Concent 34.8 Red Cell Distribution Width 11.9 Platelet Count 196 Mean Platelet Volume 9.7 Neutrophils % 46.5 Lymphocytes % 42.5 Monocytes % 7.7 Eosinophils % 2.6 Basophils % 0.5 Nucleated Red Blood Cells % 0.0 Neutrophils # 1.9 Lymphocytes # 1.8 Monocytes # 0.3 Eosinophils # 0.1 Basophils # 0.0 Nucleated Red Blood Cells # 0.0 Sodium Level 141 Potassium Level 3.6 Chloride Level 105 Carbon Dioxide Level 25 Anion Gap 15 Blood Urea Nitrogen 15 Creatinine 0.65 Glucose Level 147 Calcium Level 9.1 Bedside Glucose 138 Medications Current Medications Atorvastatin Calcium (Lipitor) 40 mg HS PO Last administered on 07/09/16 20:10 ; Admin Dose 40 MG; Start 07/06/16 at 21:00 Benazepril HCl (Lotensin) 20 mg DAILY PO Last administered on 07/10/16 08:29; Admin Dose 20 MG; Start 07/07/16 at 09:00 Insulin Glargine (Lantus) 25 unit QHS SC Last administered on 07/09/16 20:13; Admin Dose 25 UNIT; Start 07/06/16 at 21:30 Pantoprazole (Protonix Tab) 40 mg DAILY@06 PO Last administered on 07/10/16 05 :35; Admin Dose 40 MG; Start 07/07/16 at 06:00 Tramadol HCl (Ultram) 50 mg Q6H PRN PO PAIN LEVEL 1-5; Start 07/06/16 at 20:30 Ondansetron HCl (Zofran Inj) 4 mg Q4H PRN IV NAUSEA AND/OR VOMITING; Start 01/12 at 20:30 Acetaminophen (Tylenol Tab) 650 mg Q6H PRN PO PAIN LEVEL 1-3 OR FEVER; Start at 20:30 Acetaminophen/ Hydrocodone Bitart ([place] (5/325)) 1 tab Q6H PRN PO MODERATE PAIN LEVEL 4-6 Last administered on 07/10/16 08:29; Admin Dose 1 TAB; Start 01/12 at 20:30 Morphine Sulfate (morphine) 1 mg Q4H PRN IV SEVERE PAIN LEVEL 7-10; Start 07/06 at 20:30 Docusate Sodium (Colace) 100 mg Q12H PRN PO CONSTIPATION; Start 07/06/16 at 20: 30 Magnesium Hydroxide (Milk Of Mag) 30 ml DAILY PRN PO CONSTIPATION; Start at 20:30 Bisacodyl (Dulcolax) 5 mg DAILY PRN PO CONSTIPATION; Start 07/06/16 at 20:30 Bisacodyl (Dulcolax Supp) 10 mg DAILY PRN [place] CONSTIPATION; Start 07/06/16 at 20 :30 Sodium Biphosphate/ Sodium Phosphate (Fleet Enema) 133 ml DAILY PRN [place] CONSTIPATION; Start 07/06/16 at 20:30 Zolpidem Tartrate (Ambien) 5 mg QHS PRN PO SLEEP; Start 07/06/16 at 20:30 Heparin Sodium (Porcine) (Heparin (5000 Units/0.5 ml)) 5,000 unit Q12 SC Last administered on 07/10/16 08:29; Admin Dose 5,000 UNIT; Start 07/06/16 at 21:00 Diagnostic Test (Pha) (Accu-Chek) 1 XX Last administered on 07/10/16 02: 08; Admin Dose 1 EA; Start 07/07/16 at 02:00 Sodium Hypochlorite (Dakin'S (Dilute 1/40%)) 1 applic DAILY IRR Last administered on 07/10/16 08:26; Admin Dose 1 APPLIC; Start 07/07/16 at 09:00 Miscellaneous Information 1 ea NOTE XX ; Start 07/06/16 at 21:00 Glucose (Glutose) 15 gm Q15M PRN PO DECREASED GLUCOSE; Start 07/06/16 at 21:00 Glucose (Glutose) 22.5 gm Q15M PRN PO DECREASED GLUCOSE; Start 07/06/16 at 21: 00 Dextrose (D50w Syringe) 25 ml Q15M PRN IV DECREASED GLUCOSE; Start 07/06/16 at 21:00 Dextrose (D50w Syringe) 50 ml Q15M PRN IV DECREASED GLUCOSE; Start 07/06/16 at 21:00 Glucagon (Glucagen) 1 mg Q15M PRN IM DECREASED GLUCOSE; Start 07/06/16 at 21:00 Glucose (Glutose) 15 gm Q15M PRN BUCCAL DECREASED GLUCOSE; Start 07/06/16 at 21 :00 Silver Sulfadiazine 1 applic 1 applic BID TOP Last administered on 07/10/16 08 :30; Admin Dose 1 APPLIC; Start 07/06/16 at 21:30 Vancomycin HCl/ Sodium Chloride (Vancocin/NS) 250 ml @ 83.333 mls/ hr Q12H IVPB Last administered on 07/10/16 00:37; Admin Dose 83.333 MLS/HR; Start 02/11 at 12:30 Amlodipine Besylate (Norvasc) 10 mg DAILY PO Last administered on 07/10/16 08: 29; Admin Dose 10 MG; Start 07/10/16 at 09:00 Hydralazine HCl (Apresoline) 50 mg Q6 PRN PO ELEVATED BLOOD PRESSURE; Start at 23:00 Miscellaneous Information (*Rx Drug Level Order Reminder*) VANCOMYCIN TROUGH AT 1130 ONCE ONCE XX ; Start 07/11/16 at 11:30; Stop 07/11/16 at 11:31 Assessment/Plan Chief Complaint/Hosp Course Patient is known to me from out pt s/p revascularization of her left leg AT and PT. Good revascularization Came in for IV abx for osteo Problems: Additional Assessment/Plan Pt with PAD osteo stable doing fine plan per socail work and podiatry f/u FLORINDA GOMEZ MD July 10, 2016 08:55
--- NOTE | 2016-07-10 13:33 | PN ---
Date/Time of Note Date/Time of Note DATE: 07/10/16 TIME: 13:31 Assessment/Plan VTE Prophylaxis VTE Prophylaxis Intervention: SCD's Lines/Catheters IV Catheter Type (from Nrsg): PICC Line Central line still needed: Yes (IV abx for osteomyelitis ) Urinary Cath still in place: No Assessment/Plan Assessment/Plan 1. Left foot third toe osteomyelitis with bilateral foot cellulitis, not healing very well. 2. Severe peripheral arterial disease, status post endovascular repair by Dr. San. 3. History of diabetes mellitus type 2 complicated by diabetic neuropathy. 4. History of hypertension. 5. History of hyperlipidemia. 6. History of recent admission at [facility] from 06/10/2016 to 06/20/2016 for a left foot osteomyelitis and had a PICC line placement. She was discharged home with IV antibiotics, vancomycin, for methicillin resistant Staphylococcus aureus osteomyelitis. 7. Severe sepsis with lactic acid 4.8 on admission secondary to left foot osteomyelitis. 8. accelerated Hypertension PLAN: Continue IV abx zosyn and vancomycin BP was high yeterday, started on amlodipine daily and IV hydralazine added case management to set up another home health for IV abx at home, PICC line ( she lost her previous home health due to insurance reasons) S/p Podiatry consult, appreciate help ,ID also followed up on patient Pt lives alone at home, her daughter works multimedia artist and not available for help athome she needs Home health for IV abx for left second toe and right third toe ulceration and peripheral arterial disease with dry gangrene and underlying osteomyelitis. IV vancomycin 1.25gram IV BID x 6 weeks till 08/18/2016, PICC line, Left foot care , physical therapy date of encounter: 07/10/2016 Case management consult requested for it. Subjective 24 Hr Interval Summary Free Text/Dictation BP high , started on amlodipine Exam/Review of Systems Vital Signs Vitals Vital Signs Date Time Temp Pulse Resp B/P Pulse Ox O2 Delivery O2 Flow Rate FiO2 07/10/16 07:15 98.0 81 16 121/61 96 07/10/16 03:43 2.0 07/06/16 20:00 Room Air Intake and Output 07/09/16 07/09/16 07/10/16 15:00 23:00 07:00 Intake Total 1000 ml 600 ml Balance 1000 ml 600 ml Exam GENERAL: Awake, alert. Mild distress due to the pain. HEENT: Normal. Oropharynx clear. Pupils equal, round, reactive to light and accommodation. Extraocular muscles are intact. NECK: Supple, no JVD, no lymphadenopathy. LUNGS: Clear to auscultation. No crackles, no wheezes. HEART: S1, S2, with regular rhythm, no murmur. ABDOMEN: Soft, nontender, nondistended. Bowel sounds are present. EXTREMITIES: The patient has necrotic wounds on her left toes bilaterally. Results Result Diagram: 07/10/1651907/10/16519 Results 24 hrs Laboratory Tests Test 07/09/16 17:45 07/09/16 20:08 07/10/16 02:06 07/10/16 05:20 Bedside Glucose 187 258 H 177 White Blood Count 4.2 L Red Blood Count 3.67 L Hemoglobin 11.1 L Hematocrit 31.9 L Mean Corpuscular Volume 86.9 Mean Corpuscular Hemoglobin 30.2 Mean Corpuscular Hemoglobin Concent 34.8 Red Cell Distribution Width 11.9 Platelet Count 196 Mean Platelet Volume 9.7 Neutrophils % 46.5 Lymphocytes % 42.5 Monocytes % 7.7 Eosinophils % 2.6 Basophils % 0.5 Nucleated Red Blood Cells % 0.0 Neutrophils # 1.9 Lymphocytes # 1.8 Monocytes # 0.3 Eosinophils # 0.1 Basophils # 0.0 Nucleated Red Blood Cells # 0.0 Sodium Level 141 Potassium Level 3.6 Chloride Level 105 Carbon Dioxide Level 25 Anion Gap 15 Blood Urea Nitrogen 15 Creatinine 0.65 Glucose Level 147 Calcium Level 9.1 Test 07/10/16 07:44 07/10/16 11:24 Bedside Glucose 138 247 H Medications Medications Current Medications Atorvastatin Calcium (Lipitor) 40 mg HS PO Last administered on 07/09/16 20:10 ; Admin Dose 40 MG; Start 07/06/16 at 21:00 Benazepril HCl (Lotensin) 20 mg DAILY PO Last administered on 07/10/16 08:29; Admin Dose 20 MG; Start 07/07/16 at 09:00 Insulin Glargine (Lantus) 25 unit QHS SC Last administered on 07/09/16 20:13; Admin Dose 25 UNIT; Start 07/06/16 at 21:30 Pantoprazole (Protonix Tab) 40 mg DAILY@06 PO Last administered on 07/10/16 05 :35; Admin Dose 40 MG; Start 07/07/16 at 06:00 Tramadol HCl (Ultram) 50 mg Q6H PRN PO PAIN LEVEL 1-5; Start 07/06/16 at 20:30 Ondansetron HCl (Zofran Inj) 4 mg Q4H PRN IV NAUSEA AND/OR VOMITING; Start 01/12 at 20:30 Acetaminophen (Tylenol Tab) 650 mg Q6H PRN PO PAIN LEVEL 1-3 OR FEVER; Start at 20:30 Acetaminophen/ Hydrocodone Bitart ([place] (5/325)) 1 tab Q6H PRN PO MODERATE PAIN LEVEL 4-6 Last administered on 07/10/16 08:29; Admin Dose 1 TAB; Start 01/12 at 20:30 Morphine Sulfate (morphine) 1 mg Q4H PRN IV SEVERE PAIN LEVEL 7-10; Start 07/06 at 20:30 Docusate Sodium (Colace) 100 mg Q12H PRN PO CONSTIPATION; Start 07/06/16 at 20: 30 Magnesium Hydroxide (Milk Of Mag) 30 ml DAILY PRN PO CONSTIPATION; Start at 20:30 Bisacodyl (Dulcolax) 5 mg DAILY PRN PO CONSTIPATION; Start 07/06/16 at 20:30 Bisacodyl (Dulcolax Supp) 10 mg DAILY PRN [place] CONSTIPATION; Start 07/06/16 at 20 :30 Sodium Biphosphate/ Sodium Phosphate (Fleet Enema) 133 ml DAILY PRN [place] CONSTIPATION; Start 07/06/16 at 20:30 Zolpidem Tartrate (Ambien) 5 mg QHS PRN PO SLEEP; Start 07/06/16 at 20:30 Heparin Sodium (Porcine) (Heparin (5000 Units/0.5 ml)) 5,000 unit Q12 SC Last administered on 07/10/16 08:29; Admin Dose 5,000 UNIT; Start 07/06/16 at 21:00 Diagnostic Test (Pha) (Accu-Chek) 1 ea 02 XX Last administered on 07/10/16 02: 08; Admin Dose 1 EA; Start 07/07/16 at 02:00 Sodium Hypochlorite (Dakin'S (Dilute 1/40%)) 1 applic DAILY IRR Last administered on 07/10/16 08:26; Admin Dose 1 APPLIC; Start 07/07/16 at 09:00 Miscellaneous Information 1 ea NOTE XX ; Start 07/06/16 at 21:00 Glucose (Glutose) 15 gm Q15M PRN PO DECREASED GLUCOSE; Start 07/06/16 at 21:00 Glucose (Glutose) 22.5 gm Q15M PRN PO DECREASED GLUCOSE; Start 07/06/16 at 21: 00 Dextrose (D50w Syringe) 25 ml Q15M PRN IV DECREASED GLUCOSE; Start 07/06/16 at 21:00 Dextrose (D50w Syringe) 50 ml Q15M PRN IV DECREASED GLUCOSE; Start 07/06/16 at 21:00 Glucagon (Glucagen) 1 mg Q15M PRN IM DECREASED GLUCOSE; Start 07/06/16 at 21:00 Glucose (Glutose) 15 gm Q15M PRN BUCCAL DECREASED GLUCOSE; Start 07/06/16 at 21 :00 Silver Sulfadiazine 1 applic 1 applic BID TOP Last administered on 07/10/16 08 :30; Admin Dose 1 APPLIC; Start 07/06/16 at 21:30 Vancomycin HCl/ Sodium Chloride (Vancocin/NS) 250 ml @ 83.333 mls/ hr Q12H IVPB Last administered on 07/10/16 12:17; Admin Dose 83.333 MLS/HR; Start 02/11 at 12:30 Amlodipine Besylate (Norvasc) 10 mg DAILY PO Last administered on 07/10/16 08: 29; Admin Dose 10 MG; Start 07/10/16 at 09:00 Hydralazine HCl (Apresoline) 50 mg Q6 PRN PO ELEVATED BLOOD PRESSURE; Start at 23:00 Miscellaneous Information (*Rx Drug Level Order Reminder*) VANCOMYCIN TROUGH AT 1130 ONCE ONCE XX ; Start 07/11/16 at 11:30; Stop 07/11/16 at 11:31 MARIAN BURNS MD July 10, 2016 13:33
--- NOTE | 2016-07-10 13:51 | CONS ---
Date/Time of Note Date/Time of Note DATE: 07/10/16 TIME: 13:50 Assessment/Plan Assessment/Plan Chief Complaint/Hosp Course SUBJECTIVE: No acute changes overnight. The patient is alert, s/o LLE pain, looks comfortable, no fevers. MICROBIOLOGY: Blood culture, 1 set growing Staph. ANTIMICROBIALS: IV vancomycin. PHYSICAL EXAMINATION: GENERAL: Well-nourished, well-developed, elderly woman who is alert, in no distress. HEENT: Head atraumatic, normocephalic. Sclerae anicteric. Buccal mucosa dry. NECK: Supple, trachea midline. CHEST: Rise symmetrical. Breath sounds clear. HEART: S1, S2. ABDOMEN: Soft. Bowel tones present. EXTREMITIES: Left foot toe dressing intact. ASSESSMENT: 1. Gram-positive cocci bacteremia, cw contaminant. 2. Left second toe and right third toe ulceration with osteomyelitis==> previous cx + MRSA. 3. Diabetes. 4. Peripheral arterial disease. 5. Dementia. PLAN: The patient remains stable. Continue abx. F/u Podiatry rec-s. DW staff Problems: Consultation Date/Type/Reason Admit Date/Time July 06, 2016 at 17:35 Initial Consult Date 07/07/16 Type of Consultation: ID Exam/Review of Systems Vital Signs Vitals Vital Signs Date Time Temp Pulse Resp B/P Pulse Ox O2 Delivery O2 Flow Rate FiO2 07/10/16 07:15 98.0 81 16 121/61 96 07/10/16 03:43 2.0 07/06/16 20:00 Room Air Intake and Output 07/09/16 07/09/16 07/10/16 15:00 23:00 07:00 Intake Total 1000 ml 600 ml Balance 1000 ml 600 ml Results Result Diagram: 07/10/16 0520 07/10/16 0520 Results 24 hrs Laboratory Tests Test 07/09/16 17:45 07/09/16 20:08 07/10/16 02:06 07/10/16 05:20 Bedside Glucose 187 258 H 177 White Blood Count 4.2 L Red Blood Count 3.67 L Hemoglobin 11.1 L Hematocrit 31.9 L Mean Corpuscular Volume 86.9 Mean Corpuscular Hemoglobin 30.2 Mean Corpuscular Hemoglobin Concent 34.8 Red Cell Distribution Width 11.9 Platelet Count 196 Mean Platelet Volume 9.7 Neutrophils % 46.5 Lymphocytes % 42.5 Monocytes % 7.7 Eosinophils % 2.6 Basophils % 0.5 Nucleated Red Blood Cells % 0.0 Neutrophils # 1.9 Lymphocytes # 1.8 Monocytes # 0.3 Eosinophils # 0.1 Basophils # 0.0 Nucleated Red Blood Cells # 0.0 Sodium Level 141 Potassium Level 3.6 Chloride Level 105 Carbon Dioxide Level 25 Anion Gap 15 Blood Urea Nitrogen 15 Creatinine 0.65 Glucose Level 147 Calcium Level 9.1 Test 07/10/16 07:44 07/10/16 11:24 Bedside Glucose 138 247 H Medications Medications Current Medications Atorvastatin Calcium (Lipitor) 40 mg HS PO Last administered on 07/09/16 20:10 ; Admin Dose 40 MG; Start 07/06/16 at 21:00 Benazepril HCl (Lotensin) 20 mg DAILY PO Last administered on 07/10/16 08:29; Admin Dose 20 MG; Start 07/07/16 at 09:00 Insulin Glargine (Lantus) 25 unit QHS SC Last administered on 07/09/16 20:13; Admin Dose 25 UNIT; Start 07/06/16 at 21:30 Pantoprazole (Protonix Tab) 40 mg DAILY@06 PO Last administered on 07/10/16 05 :35; Admin Dose 40 MG; Start 07/07/16 at 06:00 Tramadol HCl (Ultram) 50 mg Q6H PRN PO PAIN LEVEL 1-5; Start 07/06/16 at 20:30 Ondansetron HCl (Zofran Inj) 4 mg Q4H PRN IV NAUSEA AND/OR VOMITING; Start 01/12 at 20:30 Acetaminophen (Tylenol Tab) 650 mg Q6H PRN PO PAIN LEVEL 1-3 OR FEVER; Start at 20:30 Acetaminophen/ Hydrocodone Bitart ([place] (5/325)) 1 tab Q6H PRN PO MODERATE PAIN LEVEL 4-6 Last administered on 07/10/16 08:29; Admin Dose 1 TAB; Start 01/12 at 20:30 Morphine Sulfate (morphine) 1 mg Q4H PRN IV SEVERE PAIN LEVEL 7-10; Start 07/06 at 20:30 Docusate Sodium (Colace) 100 mg Q12H PRN PO CONSTIPATION; Start 07/06/16 at 20: 30 Magnesium Hydroxide (Milk Of Mag) 30 ml DAILY PRN PO CONSTIPATION; Start at 20:30 Bisacodyl (Dulcolax) 5 mg DAILY PRN PO CONSTIPATION; Start 07/06/16 at 20:30 Bisacodyl (Dulcolax Supp) 10 mg DAILY PRN [place] CONSTIPATION; Start 07/06/16 at 20 :30 Sodium Biphosphate/ Sodium Phosphate (Fleet Enema) 133 ml DAILY PRN [place] CONSTIPATION; Start 07/06/16 at 20:30 Zolpidem Tartrate (Ambien) 5 mg QHS PRN PO SLEEP; Start 07/06/16 at 20:30 Heparin Sodium (Porcine) (Heparin (5000 Units/0.5 ml)) 5,000 unit Q12 SC Last administered on 07/10/16 08:29; Admin Dose 5,000 UNIT; Start 07/06/16 at 21:00 Diagnostic Test (Pha) (Accu-Chek) 1 ea 02 XX Last administered on 07/10/16 02: 08; Admin Dose 1 EA; Start 07/07/16 at 02:00 Sodium Hypochlorite (Dakin'S (Dilute 1/40%)) 1 applic DAILY IRR Last administered on 07/10/16 08:26; Admin Dose 1 APPLIC; Start 07/07/16 at 09:00 Miscellaneous Information 1 ea NOTE XX ; Start 07/06/16 at 21:00 Glucose (Glutose) 15 gm Q15M PRN PO DECREASED GLUCOSE; Start 07/06/16 at 21:00 Glucose (Glutose) 22.5 gm Q15M PRN PO DECREASED GLUCOSE; Start 07/06/16 at 21: 00 Dextrose (D50w Syringe) 25 ml Q15M PRN IV DECREASED GLUCOSE; Start 07/06/16 at 21:00 Dextrose (D50w Syringe) 50 ml Q15M PRN IV DECREASED GLUCOSE; Start 07/06/16 at 21:00 Glucagon (Glucagen) 1 mg Q15M PRN IM DECREASED GLUCOSE; Start 07/06/16 at 21:00 Glucose (Glutose) 15 gm Q15M PRN BUCCAL DECREASED GLUCOSE; Start 07/06/16 at 21 :00 Silver Sulfadiazine 1 applic 1 applic BID TOP Last administered on 07/10/16 08 :30; Admin Dose 1 APPLIC; Start 07/06/16 at 21:30 Vancomycin HCl/ Sodium Chloride (Vancocin/NS) 250 ml @ 83.333 mls/ hr Q12H IVPB Last administered on 07/10/16 12:17; Admin Dose 83.333 MLS/HR; Start 02/11 at 12:30 Amlodipine Besylate (Norvasc) 10 mg DAILY PO Last administered on 07/10/16 08: 29; Admin Dose 10 MG; Start 07/10/16 at 09:00 Hydralazine HCl (Apresoline) 50 mg Q6 PRN PO ELEVATED BLOOD PRESSURE; Start at 23:00 Miscellaneous Information (*Rx Drug Level Order Reminder*) VANCOMYCIN TROUGH AT 1130 ONCE ONCE XX ; Start 07/11/16 at 11:30; Stop 07/11/16 at 11:31 JOSELITO AGARWAL NP July 10, 2016 13:51
--- NOTE | 2016-07-10 17:30 | HPN ---
Date/Time of Note Date/Time of Note DATE: 07/10/16 TIME: 17:30 Interval H&P Admission Note Pt. seen H&P reviewed: No system changes JOVANNA VILCHIS DPM July 10, 2016 17:30
[2016-07-10] MEDS ORDERED: PROPOFOL 20 ML ONE (17:46)
[2016-07-10] MEDS ORDERED: LIDOCAINE 2% (SDV) 5 ML INJ ONE (17:46)
[2016-07-10] MEDS ORDERED: ONDANSETRON 4 MG INJ IV PRN ×2 (18:00→19:00)
[2016-07-10] MEDS ORDERED: FENTAnyl 50 MCG/ML VIAL IV PRN ×2 (18:00)
[2016-07-10] MEDS ORDERED: DIPHENHYDRAMINE 50 MG INJ IV PRN ×2 (18:00→19:00)
[2016-07-10] MEDS ORDERED: morphine (1 MG/ML) 10ML SYRINGE IV PRN ×2 (18:00)
[2016-07-10] MEDS ORDERED: MIDAZOLAM 1 MG/ML 2 ML INJ IV PRN (18:00)
[2016-07-10] MEDS ORDERED: MEPERIDINE 25 MG INJ IV PRN (18:00)
[2016-07-10] MEDS ORDERED: METOCLOPRAMIDE 10 MG INJ IV PRN (18:00)
[2016-07-10] MEDS ORDERED: METOCLOPRAMIDE 10 MG INJ ONE (18:21)
[2016-07-10] MEDS ORDERED: ONDANSETRON 4 MG INJ ONE (18:21)
--- NOTE | 2016-07-10 18:27 | OPR ---
Date/Time of Note Date/Time of Note DATE: 07/10/16 TIME: 18:22 Operative Report Preoperative Diagnosis NONHEALING DIABETIC FOOT ULCERATION LEFT 2ND AND RIGHT 3RD TOE OSTEOMYELITIS PAD Postoperative Diagnosis SAME Operation Performed INCISION AND DRAINAGE WITH BIOPSY BONE LEFT FOOT 2ND DISTAL PHALANX INCISION AND DRAINAGE WITH BIOPSY BONE RIGHT FOOT 3RD DISTAL PHALANX Surgeon: JOVANNA VILCHIS DPM Anesthesia: general, MAC Estimated Blood Loss: none Specimens BONE LEFT FOOT 2ND TOE AND BONE RIGHT FOOT 3RD TOE Tubes/Drains NONE Complications: None Pt Condition Post Procedure: stable Disposition: PACU JOVANNA VILCHIS DPM July 10, 2016 18:27
[2016-07-10] MEDS ORDERED: IBUPROFEN 600 MG TAB PO PRN (19:00)
[2016-07-10] MEDS: ATORVASTATIN 40 MG TAB PO SCH (20:22)
[2016-07-10] MEDS: INSULIN GLARGINE [LANtus] 3 ML PEN SC SCH (20:28)
--- NOTE | 2016-07-11 01:11 | OPR ---
DATE OF OPERATION: 07/10/2016 SURGEON: Jovanna Lee DPM OPERATIONS TECHNICIAN: None. PREOPERATIVE DIAGNOSES: 1. Right foot 3rd toe chronic nonhealing ulceration, diabetic foot ulcer. 2. Left foot 2nd toe ulceration, diabetic foot ulceration. 3. Osteomyelitis, bilateral feet. 4. Failed outpatient treatment. 5. Peripheral artery disease. POSTOPERATIVE DIAGNOSES: 1. Right foot 3rd toe chronic nonhealing ulceration, diabetic foot ulcer. 2. Left foot 2nd toe ulceration, diabetic foot ulceration. 3. Osteomyelitis, bilateral feet. 4. Failed outpatient treatment. 5. Peripheral artery disease. PROCEDURES PERFORMED: 1. Incision and drainage with biopsy of bone, left 2nd toe. 2. Incision and drainage with biopsy of bone, right 3rd toe. PATHOLOGY: Bone for pathology from left 2nd toe and right 3rd toe and bone cultures from left 2nd t oe and right 3rd toe. ANESTHESIA: General. ESTIMATED BLOOD LOSS: Less than 5 mL HEMOSTASIS: Compression. MATERIALS: 3-0 nylon. COMPLICATIONS: None. INDICATION FOR PROCEDURE: This is a 76-year-old female admitted for osteomyelitis, failed outpatien t treatment, had developed wounds without significant improvement. At this time presents for operat domitila intervention due to concern for osteomyelitis. The patient consented. Extremities were marked in the preoperative holding area and had been on IV antibiotics during hospitalization. PROCEDURE IN DETAIL: The patient brought into operating room, placed in the supine position, was pr epped with Betadine scrub and paint and draped in usual sterile fashion. Time-out had been performe d. Attention was directed to the left 2nd toe. The patient had ulceration at distal aspect. The s kin was incised and hematoma drained. Using a rongeur, bone was obtained from the distal phalanx vu th for pathology and for culture. The wound was irrigated, and 3-0 nylon was used with simple inter rupted sutures, closed the ulceration. Attention was directed to right 3rd toe. The patient had he kulwinder callus formation to the distal aspect of the 3rd toe, and skin was incised, removed the callus. Beneath this, there is presence of ulceration with draining serosanguineous drainage. A rongeur wa s used to remove tissue from the wound including bone which was sent for pathology and culture. Wou nd was irrigated with saline and closure obtained with 3-0 nylon simple interrupted sutures. The pa tient had estimated blood loss of 5 mL, tolerated procedure well. Transferred to PACU with vital si gns stable. POSTOPERATIVE PLAN: Suspect osteomyelitis, await culture results. Recommend bed rest. Dictated By: JOVANNA SIMMONS/LEI Conf#: [id number] DID#: [id number]
[2016-07-11] MEDS: VANCOMYCIN 1.25 GM in SOD CHLORIDE 0.9% 250 ML IVPB SCH (01:19)
[2016-07-11] MEDS: HYDROCODONE/APAP (5/325) TAB PO PRN ×3 (01:22→20:58)
[2016-07-11] MEDS: ACCU-CHEK XX SCH (01:38)
[2016-07-11] MEDS: PANTOPRAZOLE (EC) 40 MG TAB PO SCH (06:10)
[2016-07-11 07:51] VITALS: BP 122/58; RESP 18
[2016-07-11] MEDS: SODIUM HYPOCHLORITE 1/40% 1L IRRIG IRR SCH (08:20)
[2016-07-11] MEDS: SILVER SULFADIAZINE 1% 25 GM CR TOP SCH ×2 (08:20→21:08)
[2016-07-11] MEDS: INSULIN ASPART [NOVOLOG] 3 ML PEN SC SCH ×4 (08:30→21:03)
[2016-07-11] MEDS: HEPARIN 5,000 UNIT/0.5 ML VIAL SC SCH ×2 (08:30→21:05)
[2016-07-11] MEDS: AMLODIPINE 10 MG TAB PO SCH (08:31)
[2016-07-11] MEDS: traMADol 50 MG TAB PO PRN ×2 (08:31→18:48)
[2016-07-11] MEDS: BENAZEPRIL 20 MG TAB PO SCH (08:31)
--- NOTE | 2016-07-11 12:51 | PN ---
Date/Time of Note Date/Time of Note DATE: 07/11/16 TIME: 12:48 Assessment/Plan VTE Prophylaxis VTE Prophylaxis Intervention: SCD's Lines/Catheters IV Catheter Type (from Nrsg): PICC Line Central line still needed: Yes (IV abx for OM ) Urinary Cath still in place: No Assessment/Plan Assessment/Plan 1. Left foot third toe osteomyelitis with bilateral foot cellulitis, not healing very well. 2. Severe peripheral arterial disease, status post endovascular repair by Dr. San. 3. History of diabetes mellitus type 2 complicated by diabetic neuropathy. 4. History of hypertension. 5. History of hyperlipidemia. 6. History of recent admission at [facility] from 06/10/2016 to 06/20/2016 for a left foot osteomyelitis and had a PICC line placement. She was discharged home with IV antibiotics, vancomycin, for methicillin resistant Staphylococcus aureus osteomyelitis. 7. Severe sepsis with lactic acid 4.8 on admission secondary to left foot osteomyelitis. 8. accelerated Hypertension PLAN: Continue IV abx zosyn and vancomycin BP was high yeterday, started on amlodipine daily and IV hydralazine added case management to set up another home health for IV abx at home, PICC line ( she lost her previous home health due to insurance reasons) S/p Podiatry consult, appreciate help ,ID also followed up on patient Pt lives alone at home, her daughter works suspect artist and not available for help athome she needs Home health for IV abx for left second toe and right third toe ulceration and peripheral arterial disease with dry gangrene and underlying osteomyelitis. IV vancomycin 1.25gram IV BID x 6 weeks till 08/18/2016, PICC line, Left foot care , physical therapy date of encounter: 07/11/2016 Case management consult requested for it. Subjective 24 Hr Interval Summary Free Text/Dictation no acute events,BP stable Exam/Review of Systems Vital Signs Vitals Vital Signs Date Time Temp Pulse Resp B/P Pulse Ox O2 Delivery O2 Flow Rate FiO2 07/11/16 07:51 98.2 68 18 122/58 99 07/10/16 19:32 Room Air 07/10/16 14:59 21 07/10/16 03:43 2.0 Intake and Output 07/10/16 07/10/16 07/11/16 15:00 23:00 07:00 Intake Total 850 ml 730 ml Output Total 5 ml Balance 845 ml 730 ml Exam GENERAL: Awake, alert. Mild distress due to the pain. HEENT: Normal. Oropharynx clear. Pupils equal, round, reactive to light and accommodation. Extraocular muscles are intact. NECK: Supple, no JVD, no lymphadenopathy. LUNGS: Clear to auscultation. No crackles, no wheezes. HEART: S1, S2, with regular rhythm, no murmur. ABDOMEN: Soft, nontender, nondistended. Bowel sounds are present. EXTREMITIES: The patient has necrotic wounds on her left toes bilaterally. Results Result Diagram: 07/10/16 0520 07/10/16 0520 Results 24 hrs Laboratory Tests Test 07/10/16 16:07/10/16 20:25 07/11/16 01:36 07/11/16 08:16 Bedside Glucose 134 210 158 146 Medications Medications Current Medications Atorvastatin Calcium (Lipitor) 40 mg HS PO Last administered on 07/10/16 20:22 ; Admin Dose 40 MG; Start 07/06/16 at 21:00 Benazepril HCl (Lotensin) 20 mg DAILY PO Last administered on 07/11/16 08:31; Admin Dose 20 MG; Start 07/07/16 at 09:00 Insulin Glargine (Lantus) 25 unit QHS SC Last administered on 07/10/16 20:28; Admin Dose 25 UNIT; Start 07/06/16 at 21:30 Pantoprazole (Protonix Tab) 40 mg DAILY@06 PO Last administered on 07/11/16 06 :10; Admin Dose 40 MG; Start 07/07/16 at 06:00 Tramadol HCl (Ultram) 50 mg Q6H PRN PO PAIN LEVEL 1-5 Last administered on 07/11 08:31; Admin Dose 50 MG; Start 07/06/16 at 20:30 Ondansetron HCl (Zofran Inj) 4 mg Q4H PRN IV NAUSEA AND/OR VOMITING; Start 01/12 at 20:30 Acetaminophen (Tylenol Tab) 650 mg Q6H PRN PO PAIN LEVEL 1-3 OR FEVER; Start at 20:30 Morphine Sulfate (morphine) 1 mg Q4H PRN IV SEVERE PAIN LEVEL 7-10 Last administered on 07/11/16 01:29; Admin Dose 1 MG; Start 07/06/16 at 20:30 Docusate Sodium (Colace) 100 mg Q12H PRN PO CONSTIPATION; Start 07/06/16 at 20: 30 Magnesium Hydroxide (Milk Of Mag) 30 ml DAILY PRN PO CONSTIPATION; Start at 20:30 Bisacodyl (Dulcolax) 5 mg DAILY PRN PO CONSTIPATION; Start 07/06/16 at 20:30 Bisacodyl (Dulcolax Supp) 10 mg DAILY PRN [place] CONSTIPATION; Start 07/06/16 at 20 :30 Sodium Biphosphate/ Sodium Phosphate (Fleet Enema) 133 ml DAILY PRN [place] CONSTIPATION; Start 07/06/16 at 20:30 Zolpidem Tartrate (Ambien) 5 mg QHS PRN PO SLEEP; Start 07/06/16 at 20:30 Heparin Sodium (Porcine) (Heparin (5000 Units/0.5 ml)) 5,000 unit Q12 SC Last administered on 07/11/16 08:30; Admin Dose 5,000 UNIT; Start 07/06/16 at 21:00 Diagnostic Test (Pha) (Accu-Chek) 1 ea 02 XX Last administered on 07/11/16 01: 38; Admin Dose 1 EA; Start 07/07/16 at 02:00 Sodium Hypochlorite (Dakin'S (Dilute 1/40%)) 1 applic DAILY IRR Last administered on 07/10/16 08:26; Admin Dose 1 APPLIC; Start 07/07/16 at 09:00 Miscellaneous Information 1 ea NOTE XX ; Start 07/06/16 at 21:00 Glucose (Glutose) 15 gm Q15M PRN PO DECREASED GLUCOSE; Start 07/06/16 at 21:00 Glucose (Glutose) 22.5 gm Q15M PRN PO DECREASED GLUCOSE; Start 07/06/16 at 21: 00 Dextrose (D50w Syringe) 25 ml Q15M PRN IV DECREASED GLUCOSE; Start 07/06/16 at 21:00 Dextrose (D50w Syringe) 50 ml Q15M PRN IV DECREASED GLUCOSE; Start 07/06/16 at 21:00 Glucagon (Glucagen) 1 mg Q15M PRN IM DECREASED GLUCOSE; Start 07/06/16 at 21:00 Glucose (Glutose) 15 gm Q15M PRN BUCCAL DECREASED GLUCOSE; Start 07/06/16 at 21 :00 Silver Sulfadiazine 1 applic 1 applic BID TOP Last administered on 07/10/16 20 :29; Admin Dose 1 APPLIC; Start 07/06/16 at 21:30 Vancomycin HCl/ Sodium Chloride (Vancocin/NS) 250 ml @ 83.333 mls/ hr Q12H IVPB Last administered on 07/11/16 01:19; Admin Dose 83.333 MLS/HR; Start 02/11 at 12:30 Amlodipine Besylate (Norvasc) 10 mg DAILY PO Last administered on 07/11/16 08: 31; Admin Dose 10 MG; Start 07/10/16 at 09:00 Hydralazine HCl (Apresoline) 50 mg Q6 PRN PO ELEVATED BLOOD PRESSURE; Start at 23:00 Acetaminophen/ Hydrocodone Bitart ([place] (5/325)) 1 tab Q6H PRN PO PAIN LEVEL 6 -10 Last administered on 07/11/16 06:11; Admin Dose 1 TAB; Start 07/10/16 at 19 :00 Ibuprofen (Motrin) 600 mg Q6H PRN PO PAIN LEVEL 1-5; Start 07/10/16 at 19:00 Diphenhydramine HCl (Benadryl) 25 mg Q6H PRN IV ITCHING; Start 07/10/16 at 19: 00 Ondansetron HCl (Zofran Inj) 4 mg Q6H PRN IV NAUSEA AND/OR VOMITING; Start at 19:00 MARIAN BURNS MD July 11, 2016 12:51
--- NOTE | 2016-07-11 13:15 | CONS ---
Date/Time of Note Date/Time of Note DATE: 07/11/16 TIME: 13:13 Assessment/Plan Assessment/Plan Chief Complaint/Hosp Course SUBJECTIVE: No acute changes overnight. The patient is alert, looks comfortable, no fevers. MICROBIOLOGY: Blood culture, 1 set growing Staph. ANTIMICROBIALS: IV vancomycin. PHYSICAL EXAMINATION: GENERAL: Well-nourished, well-developed, elderly woman who is alert, in no distress. HEENT: Head atraumatic, normocephalic. Sclerae anicteric. Buccal mucosa dry. NECK: Supple, trachea midline. CHEST: Rise symmetrical. Breath sounds clear. HEART: S1, S2. ABDOMEN: Soft. Bowel tones present. EXTREMITIES: Left foot toe dressing intact. ASSESSMENT: 1. Gram-positive cocci bacteremia, cw contaminant. 2. Left second toe and right third toe ulceration with osteomyelitis==> previous cx + MRSA. 3. Diabetes. 4. Peripheral arterial disease. 5. B feet OM PLAN: S/p i&d 07/10, pending final cx and pathology, continue abx, pain management, f/u podiatry rec-s. Anticipate treating with 6-8 weeks IV abx DW staff Problems: Consultation Date/Type/Reason Admit Date/Time July 06, 2016 at 17:35 Initial Consult Date 07/07/16 Type of Consultation: ID Exam/Review of Systems Vital Signs Vitals Vital Signs Date Time Temp Pulse Resp B/P Pulse Ox O2 Delivery O2 Flow Rate FiO2 07/11/16 07:51 98.2 68 18 122/58 99 07/10/16 19:32 Room Air 07/10/16 14:59 21 07/10/16 03:43 2.0 Intake and Output 07/10/16 07/10/16 07/11/16 15:00 23:00 07:00 Intake Total 850 ml 730 ml Output Total 5 ml Balance 845 ml 730 ml Results Result Diagram: 07/10/16 0520 07/10/16 0520 Results 24 hrs Laboratory Tests Test 07/10/16 16:17 07/10/16 20:25 07/11/16 01:36 07/11/16 08:16 Bedside Glucose 134 210 158 146 Test 07/11/16 11:45 07/11/16 12:41 Vancomycin Level Trough 19.3 Bedside Glucose 214 Medications Medications Current Medications Atorvastatin Calcium (Lipitor) 40 mg HS PO Last administered on 07/10/16 20:22 ; Admin Dose 40 MG; Start 07/06/16 at 21:00 Benazepril HCl (Lotensin) 20 mg DAILY PO Last administered on 07/11/16 08:31; Admin Dose 20 MG; Start 07/07/16 at 09:00 Insulin Glargine (Lantus) 25 unit QHS SC Last administered on 07/10/16 20:28; Admin Dose 25 UNIT; Start 07/06/16 at 21:30 Pantoprazole (Protonix Tab) 40 mg DAILY@06 PO Last administered on 07/11/16 06 :10; Admin Dose 40 MG; Start 07/07/16 at 06:00 Tramadol HCl (Ultram) 50 mg Q6H PRN PO PAIN LEVEL 1-5 Last administered on 07/11 08:31; Admin Dose 50 MG; Start 07/06/16 at 20:30 Ondansetron HCl (Zofran Inj) 4 mg Q4H PRN IV NAUSEA AND/OR VOMITING; Start 01/12 at 20:30 Acetaminophen (Tylenol Tab) 650 mg Q6H PRN PO PAIN LEVEL 1-3 OR FEVER; Start at 20:30 Morphine Sulfate (morphine) 1 mg Q4H PRN IV SEVERE PAIN LEVEL 7-10 Last administered on 07/11/16 01:29; Admin Dose 1 MG; Start 07/06/16 at 20:30 Docusate Sodium (Colace) 100 mg Q12H PRN PO CONSTIPATION; Start 07/06/16 at 20: 30 Magnesium Hydroxide (Milk Of Mag) 30 ml DAILY PRN PO CONSTIPATION; Start at 20:30 Bisacodyl (Dulcolax) 5 mg DAILY PRN PO CONSTIPATION; Start 07/06/16 at 20:30 Bisacodyl (Dulcolax Supp) 10 mg DAILY PRN [place] CONSTIPATION; Start 07/06/16 at 20 :30 Sodium Biphosphate/ Sodium Phosphate (Fleet Enema) 133 ml DAILY PRN [place] CONSTIPATION; Start 07/06/16 at 20:30 Zolpidem Tartrate (Ambien) 5 mg QHS PRN PO SLEEP; Start 07/06/16 at 20:30 Heparin Sodium (Porcine) (Heparin (5000 Units/0.5 ml)) 5,000 unit Q12 SC Last administered on 07/11/16 08:30; Admin Dose 5,000 UNIT; Start 07/06/16 at 21:00 Diagnostic Test (Pha) (Accu-Chek) 1 ea 02 XX Last administered on 07/11/16 01: 38; Admin Dose 1 EA; Start 07/07/16 at 02:00 Sodium Hypochlorite (Dakin'S (Dilute 1/40%)) 1 applic DAILY IRR Last administered on 07/10/16 08:26; Admin Dose 1 APPLIC; Start 07/07/16 at 09:00 Miscellaneous Information 1 ea NOTE XX ; Start 07/06/16 at 21:00 Glucose (Glutose) 15 gm Q15M PRN PO DECREASED GLUCOSE; Start 07/06/16 at 21:00 Glucose (Glutose) 22.5 gm Q15M PRN PO DECREASED GLUCOSE; Start 07/06/16 at 21: 00 Dextrose (D50w Syringe) 25 ml Q15M PRN IV DECREASED GLUCOSE; Start 07/06/16 at 21:00 Dextrose (D50w Syringe) 50 ml Q15M PRN IV DECREASED GLUCOSE; Start 07/06/16 at 21:00 Glucagon (Glucagen) 1 mg Q15M PRN IM DECREASED GLUCOSE; Start 07/06/16 at 21:00 Glucose (Glutose) 15 gm Q15M PRN BUCCAL DECREASED GLUCOSE; Start 07/06/16 at 21 :00 Silver Sulfadiazine (Thermazene 1% 25 Gm) 1 applic BID TOP Last administered on 07/10/16 20:29; Admin Dose 1 APPLIC; Start 07/06/16 at 21:30 Amlodipine Besylate (Norvasc) 10 mg DAILY PO Last administered on 07/11/16 08: 31; Admin Dose 10 MG; Start 07/10/16 at 09:00 Hydralazine HCl (Apresoline) 50 mg Q6 PRN PO ELEVATED BLOOD PRESSURE; Start at 23:00 Acetaminophen/ Hydrocodone Bitart ([place] (5/325)) 1 tab Q6H PRN PO PAIN LEVEL 6 -10 Last administered on 07/11/16 06:11; Admin Dose 1 TAB; Start 07/10/16 at 19 :00 Ibuprofen (Motrin) 600 mg Q6H PRN PO PAIN LEVEL 1-5; Start 07/10/16 at 19:00 Diphenhydramine HCl (Benadryl) 25 mg Q6H PRN IV ITCHING; Start 07/10/16 at 19: 00 Ondansetron HCl 4 mg 4 mg Q6H PRN IV NAUSEA AND/OR VOMITING; Start 07/10/16 at 19:00 Vancomycin HCl (Vancocin) 250 ml @ 125 mls/hr Q12H IVPB ; Start 07/11/16 at 14: 00 JOSELITO AGARWAL NP July 11, 2016 13:15
[2016-07-11] MEDS: VANCOMYCIN 1 GM in NS 250 ML IVPB SCH (14:06)
--- NOTE | 2016-07-11 15:50 | PN ---
Date/Time of Note Date/Time of Note DATE: 07/11/16 TIME: 15:26 Assessment/Plan VTE Prophylaxis VTE Prophylaxis Intervention: other (Elevate LE.) Lines/Catheters IV Catheter Type (from Nrs): PICC Line Central line still needed: Yes (Defer to PCP/Hospitalist.) Urinary Cath still in place: No Assessment/Plan Chief Complaint/Hosp Course Rt 3rd toe and distal aspect of Lt 2nd toe with ulceration measuring approximately 2 x 3 mm with dry gangrene and bone exposure. Problems: Assessment/Plan Right foot 3rd toe chronic nonhealing ulceration, diabetic foot ulcer. S/P I&D with bone biopsy. Dressing D/C/I. Wound care; Dakins 0.125% cleanse, SSD, Xeroform, DSD, change q24. Left foot 2nd toe ulceration, diabetic foot ulceration. S/P I&D with bone biopsy. Dressing D/C/I. Wound care; Dakins 0.125% cleanse, SSD, Xeroform, DSD , change q24. Follow up as outpatient [facility] with Dr. Lee. D/C as per PCP/Hospitalist. Subjective 24 Hr Interval Summary Free Text/Dictation Right foot 3rd toe chronic nonhealing ulceration, diabetic foot ulcer. S/P I&D with bone biopsy. Left foot 2nd toe ulceration, diabetic foot ulceration. S/P I&D with bone biopsy. Osteomyelitis, bilateral feet. Failed outpatient treatment. Peripheral artery disease. Exam/Review of Systems Vital Signs Vitals Vital Signs Date Time Temp Pulse Resp B/P Pulse Ox O2 Delivery O2 Flow Rate FiO2 07/11/16 07:51 98.2 68 18 122/58 99 07/10/16 19:32 Room Air 07/10/16 14:59 21 07/10/16 03:43 2.0 Intake and Output 07/10/16 07/10/16 07/11/16 15:00 23:00 07:00 Intake Total 850 ml 730 ml Output Total 5 ml Balance 845 ml 730 ml Exam Right foot 3rd toe chronic nonhealing ulceration, diabetic foot ulcer. S/P I&D with bone biopsy. Dressing D/C/I. Left foot 2nd toe ulceration, diabetic foot ulceration. S/P I&D with bone biopsy. Dressing D/C/I. Osteomyelitis, bilateral feet. Peripheral artery disease. Results Result Diagram: 07/10/16 0520 07/10/16 0520 Results 24 hrs Laboratory Tests Test 07/10/16 16:17 07/10/16 20:25 07/11/16 01:36 07/11/16 08:16 Bedside Glucose 134 210 158 146 Test 07/11/16 11:45 07/11/16 12:41 Vancomycin Level Trough 19.3 Bedside Glucose 214 Medications Medications Current Medications Atorvastatin Calcium (Lipitor) 40 mg HS PO Last administered on 07/10/16 20:22 ; Admin Dose 40 MG; Start 07/06/16 at 21:00 Benazepril HCl (Lotensin) 20 mg DAILY PO Last administered on 07/11/16 08:31; Admin Dose 20 MG; Start 07/07/16 at 09:00 Insulin Glargine (Lantus) 25 unit QHS SC Last administered on 07/10/16 20:28; Admin Dose 25 UNIT; Start 07/06/16 at 21:30 Pantoprazole (Protonix Tab) 40 mg DAILY@06 PO Last administered on 07/11/16 06 :10; Admin Dose 40 MG; Start 07/07/16 at 06:00 Tramadol HCl (Ultram) 50 mg Q6H PRN PO PAIN LEVEL 1-5 Last administered on 07/11 08:31; Admin Dose 50 MG; Start 07/06/16 at 20:30 Ondansetron HCl (Zofran Inj) 4 mg Q4H PRN IV NAUSEA AND/OR VOMITING; Start 01/12 at 20:30 Acetaminophen (Tylenol Tab) 650 mg Q6H PRN PO PAIN LEVEL 1-3 OR FEVER; Start at 20:30 Morphine Sulfate (morphine) 1 mg Q4H PRN IV SEVERE PAIN LEVEL 7-10 Last administered on 07/11/16 01:29; Admin Dose 1 MG; Start 07/06/16 at 20:30 Docusate Sodium (Colace) 100 mg Q12H PRN PO CONSTIPATION; Start 07/06/16 at 20: 30 Magnesium Hydroxide (Milk Of Mag) 30 ml DAILY PRN PO CONSTIPATION; Start at 20:30 Bisacodyl (Dulcolax) 5 mg DAILY PRN PO CONSTIPATION; Start 07/06/16 at 20:30 Bisacodyl (Dulcolax Supp) 10 mg DAILY PRN [place] CONSTIPATION; Start 07/06/16 at 20 :30 Sodium Biphosphate/ Sodium Phosphate (Fleet Enema) 133 ml DAILY PRN [place] CONSTIPATION; Start 07/06/16 at 20:30 Zolpidem Tartrate (Ambien) 5 mg QHS PRN PO SLEEP; Start 07/06/16 at 20:30 Heparin Sodium (Porcine) (Heparin (5000 Units/0.5 ml)) 5,000 unit Q12 SC Last administered on 07/11/16 08:30; Admin Dose 5,000 UNIT; Start 07/06/16 at 21:00 Diagnostic Test (Pha) (Accu-Chek) 1 ea 02 XX Last administered on 07/11/16 01: 38; Admin Dose 1 EA; Start 07/07/16 at 02:00 Sodium Hypochlorite (Dakin'S (Dilute 1/40%)) 1 applic DAILY IRR Last administered on 07/10/16 08:26; Admin Dose 1 APPLIC; Start 07/07/16 at 09:00 Miscellaneous Information 1 ea NOTE XX ; Start 07/06/16 at 21:00 Glucose (Glutose) 15 gm Q15M PRN PO DECREASED GLUCOSE; Start 07/06/16 at 21:00 Glucose (Glutose) 22.5 gm Q15M PRN PO DECREASED GLUCOSE; Start 07/06/16 at 21: 00 Dextrose (D50w Syringe) 25 ml Q15M PRN IV DECREASED GLUCOSE; Start 07/06/16 at 21:00 Dextrose (D50w Syringe) 50 ml Q15M PRN IV DECREASED GLUCOSE; Start 07/06/16 at 21:00 Glucagon (Glucagen) 1 mg Q15M PRN IM DECREASED GLUCOSE; Start 07/06/16 at 21:00 Glucose (Glutose) 15 gm Q15M PRN BUCCAL DECREASED GLUCOSE; Start 07/06/16 at 21 :00 Silver Sulfadiazine (Thermazene 1% 25 Gm) 1 applic BID TOP Last administered on 07/10/16 20:29; Admin Dose 1 APPLIC; Start 07/06/16 at 21:30 Amlodipine Besylate (Norvasc) 10 mg DAILY PO Last administered on 07/11/16 08: 31; Admin Dose 10 MG; Start 07/10/16 at 09:00 Hydralazine HCl (Apresoline) 50 mg Q6 PRN PO ELEVATED BLOOD PRESSURE; Start at 23:00 Acetaminophen/ Hydrocodone Bitart ([place] (5/325)) 1 tab Q6H PRN PO PAIN LEVEL 6 -10 Last administered on 07/11/16 06:11; Admin Dose 1 TAB; Start 07/10/16 at 19 :00 Ibuprofen (Motrin) 600 mg Q6H PRN PO PAIN LEVEL 1-5; Start 07/10/16 at 19:00 Diphenhydramine HCl (Benadryl) 25 mg Q6H PRN IV ITCHING; Start 07/10/16 at 19: 00 Ondansetron HCl 4 mg 4 mg Q6H PRN IV NAUSEA AND/OR VOMITING; Start 07/10/16 at 19:00 Vancomycin HCl (Vancocin) 250 ml @ 125 mls/hr Q12H IVPB Last administered on 14:06; Admin Dose 125 MLS/HR; Start 07/11/16 at 14:00 ANTONY CHAVEZ DPM July 11, 2016 15:36
--- NOTE | 2016-07-11 19:57 | CONS ---
Date/Time of Note Date/Time of Note DATE: 07/11/16 TIME: 19:56 Consult Date/Type/Reason Admit Date/Time July 06, 2016 at 17:35 Initial Consult Date 07/07/16 Type of Consultation: Endovascular intervention Objective Vital Signs Date Time Temp Pulse Resp B/P Pulse Ox O2 Delivery O2 Flow Rate FiO2 07/11/16 07:51 98.2 68 18 122/58 99 07/10/16 19:32 Room Air 07/10/16 14:59 21 07/10/16 03:43 2.0 Intake and Output 07/10/16 07/10/16 07/11/16 15:00 23:00 07:00 Intake Total 850 ml 730 ml Output Total 5 ml Balance 845 ml 730 ml Results/Medications Result Diagram: 07/10/16 0520 07/10/16 0520 Results 24 hrs Laboratory Tests Test 07/10/16 20:25 07/11/16 01:36 07/11/16 08:16 07/11/16 11:45 Bedside Glucose 210 158 146 Vancomycin Level Trough 19.3 Test 07/11/16 12:41 07/11/16 17:42 Bedside Glucose 214 174 Medications Current Medications Atorvastatin Calcium (Lipitor) 40 mg HS PO Last administered on 07/10/16 20:22 ; Admin Dose 40 MG; Start 07/06/16 at 21:00 Benazepril HCl (Lotensin) 20 mg DAILY PO Last administered on 07/11/16 08:31; Admin Dose 20 MG; Start 07/07/16 at 09:00 Insulin Glargine (Lantus) 25 unit QHS SC Last administered on 07/10/16 20:28; Admin Dose 25 UNIT; Start 07/06/16 at 21:30 Pantoprazole (Protonix Tab) 40 mg DAILY@06 PO Last administered on 07/11/16 06 :10; Admin Dose 40 MG; Start 07/07/16 at 06:00 Tramadol HCl (Ultram) 50 mg Q6H PRN PO PAIN LEVEL 1-5 Last administered on 07/11 18:48; Admin Dose 50 MG; Start 07/06/16 at 20:30 Acetaminophen (Tylenol Tab) 650 mg Q6H PRN PO PAIN LEVEL 1-3 OR FEVER; Start at 20:30 Morphine Sulfate (morphine) 1 mg Q4H PRN IV SEVERE PAIN LEVEL 7-10 Last administered on 07/11/16 01:29; Admin Dose 1 MG; Start 07/06/16 at 20:30 Docusate Sodium (Colace) 100 mg Q12H PRN PO CONSTIPATION; Start 07/06/16 at 20: 30 Magnesium Hydroxide (Milk Of Mag) 30 ml DAILY PRN PO CONSTIPATION; Start at 20:30 Bisacodyl (Dulcolax) 5 mg DAILY PRN PO CONSTIPATION; Start 07/06/16 at 20:30 Bisacodyl (Dulcolax Supp) 10 mg DAILY PRN [place] CONSTIPATION; Start 07/06/16 at 20 :30 Sodium Biphosphate/ Sodium Phosphate (Fleet Enema) 133 ml DAILY PRN [place] CONSTIPATION; Start 07/06/16 at 20:30 Zolpidem Tartrate (Ambien) 5 mg QHS PRN PO SLEEP; Start 07/06/16 at 20:30 Heparin Sodium (Porcine) (Heparin (5000 Units/0.5 ml)) 5,000 unit Q12 SC Last administered on 07/11/16 08:30; Admin Dose 5,000 UNIT; Start 07/06/16 at 21:00 Diagnostic Test (Pha) (Accu-Chek) 1 ea 02 XX Last administered on 07/11/16 01: 38; Admin Dose 1 EA; Start 07/07/16 at 02:00 Sodium Hypochlorite (Dakin'S (Dilute 1/40%)) 1 applic DAILY IRR Last administered on 07/10/16 08:26; Admin Dose 1 APPLIC; Start 07/07/16 at 09:00 Miscellaneous Information 1 ea NOTE XX ; Start 07/06/16 at 21:00 Glucose (Glutose) 15 gm Q15M PRN PO DECREASED GLUCOSE; Start 07/06/16 at 21:00 Glucose (Glutose) 22.5 gm Q15M PRN PO DECREASED GLUCOSE; Start 07/06/16 at 21: 00 Dextrose (D50w Syringe) 25 ml Q15M PRN IV DECREASED GLUCOSE; Start 07/06/16 at 21:00 Dextrose (D50w Syringe) 50 ml Q15M PRN IV DECREASED GLUCOSE; Start 07/06/16 at 21:00 Glucagon (Glucagen) 1 mg Q15M PRN IM DECREASED GLUCOSE; Start 07/06/16 at 21:00 Glucose (Glutose) 15 gm Q15M PRN BUCCAL DECREASED GLUCOSE; Start 07/06/16 at 21 :00 Silver Sulfadiazine (Thermazene 1% 25 Gm) 1 applic BID TOP Last administered on 07/10/16 20:29; Admin Dose 1 APPLIC; Start 07/06/16 at 21:30 Amlodipine Besylate (Norvasc) 10 mg DAILY PO Last administered on 07/11/16 08: 31; Admin Dose 10 MG; Start 07/10/16 at 09:00 Hydralazine HCl (Apresoline) 50 mg Q6 PRN PO ELEVATED BLOOD PRESSURE; Start at 23:00 Acetaminophen/ Hydrocodone Bitart ([place] (5/325)) 1 tab Q6H PRN PO PAIN LEVEL 6 -10 Last administered on 07/11/16 06:11; Admin Dose 1 TAB; Start 07/10/16 at 19 :00 Ibuprofen (Motrin) 600 mg Q6H PRN PO PAIN LEVEL 1-5; Start 07/10/16 at 19:00 Diphenhydramine HCl (Benadryl) 25 mg Q6H PRN IV ITCHING; Start 07/10/16 at 19: 00 Ondansetron HCl 4 mg 4 mg Q6H PRN IV NAUSEA AND/OR VOMITING; Start 07/10/16 at 19:00 Vancomycin HCl (Vancocin) 250 ml @ 125 mls/hr Q12H IVPB Last administered on 14:06; Admin Dose 125 MLS/HR; Start 07/11/16 at 14:00 Assessment/Plan Chief Complaint/Hosp Course Patient is known to me from out pt s/p revascularization of her left leg AT and PT. Good revascularization Came in for IV abx for osteo Problems: Additional Assessment/Plan Pt is stable doing fine Home health aid access ride set up plan to FLORINDA Jamil MD July 11, 2016 19:57
[2016-07-11 20:05] VITALS: BP 125/60; RESP 18
[2016-07-11] MEDS: ATORVASTATIN 40 MG TAB PO SCH (20:58)
[2016-07-11] MEDS: INSULIN GLARGINE [LANtus] 3 ML PEN SC SCH (21:04)
[2016-07-12] MEDS: ACCU-CHEK XX SCH (02:06)
[2016-07-12] MEDS: VANCOMYCIN 1 GM in NS 250 ML IVPB SCH ×2 (02:27→15:20)
[2016-07-12] MEDS: HYDROCODONE/APAP (5/325) TAB PO PRN (05:25)
[2016-07-12] MEDS: PANTOPRAZOLE (EC) 40 MG TAB PO SCH (05:26)
[2016-07-12 07:14] VITALS: BP 107/59; RESP 18
[2016-07-12] MEDS: AMLODIPINE 10 MG TAB PO SCH (08:09)
[2016-07-12] MEDS: BENAZEPRIL 20 MG TAB PO SCH (08:09)
[2016-07-12] MEDS: HEPARIN 5,000 UNIT/0.5 ML VIAL SC SCH (08:10)
[2016-07-12] MEDS: INSULIN ASPART [NOVOLOG] 3 ML PEN SC SCH ×3 (08:11→17:30)
[2016-07-12] MEDS: SODIUM HYPOCHLORITE 1/40% 1L IRRIG IRR SCH ×2 (09:00→18:31)
--- NOTE | 2016-07-12 14:06 | PDOCDIS ---
Discharge Instructions CONDITION Patient Condition: Good HOME CARE INSTRUCTIONS: Special Diet: ADA 1800 kcal diet ACTIVITY: Activity Restrictions: Slowly Increase Activity Rest between Activity Avoid heavy lifting Avoid Heavy Housework FOLLOW UP/APPOINTMENTS Appointments follow up with Dr.Kalpesh Burns in 1-2 week, Follow up with Dr.Moinakhtar San in 1-2 week MARIAN BURNS MD July 12, 2016 14:06
[2016-07-12] MEDS ORDERED: ATOR40TA68 PO (14:08)
[2016-07-12] MEDS ORDERED: SITA1TAB5 PO (14:08)
[2016-07-12] MEDS ORDERED: BENA20TA48 PO (14:08)
--- NOTE | 2016-07-12 14:30 | CONS ---
Date/Time of Note Date/Time of Note DATE: 07/12/16 TIME: 14:29 Assessment/Plan Assessment/Plan Chief Complaint/Hosp Course SUBJECTIVE: No acute changes overnight. The patient is alert, looks comfortable, no fevers. MICROBIOLOGY: Blood culture, 1 set growing Staph. ANTIMICROBIALS: IV vancomycin. PHYSICAL EXAMINATION: GENERAL: Well-nourished, well-developed, elderly woman who is alert, in no distress. HEENT: Head atraumatic, normocephalic. Sclerae anicteric. Buccal mucosa dry. NECK: Supple, trachea midline. CHEST: Rise symmetrical. Breath sounds clear. HEART: S1, S2. ABDOMEN: Soft. Bowel tones present. EXTREMITIES: Left foot toe dressing intact. ASSESSMENT: 1. Gram-positive cocci bacteremia, cw contaminant. 2. Left second toe and right third toe ulceration with osteomyelitis==> cx + MRSA. 3. Diabetes. 4. Peripheral arterial disease. 5. B feet OM PLAN: Pending final cx's, continue local wound care per podiatry rec-s. Anticipate treating with 6-8 weeks IV abx DW staff Problems: Consultation Date/Type/Reason Admit Date/Time July 06, 2016 at 17:35 Initial Consult Date 07/07/16 Type of Consultation: ID Exam/Review of Systems Vital Signs Vitals Vital Signs Date Time Temp Pulse Resp B/P Pulse Ox O2 Delivery O2 Flow Rate FiO2 07/12/16 07:14 97.8 65 18 107/59 98 07/10/16 19:32 Room Air 07/10/16 14:59 21 07/10/16 03:43 2.0 Intake and Output 07/11/16 07/11/16 07/12/16 14:59 22:59 06:59 Intake Total 1170 ml 770 ml Balance 1170 ml 770 ml Results Result Diagram: 07/10/16 0520 07/10/16 0520 Results 24 hrs Laboratory Tests Test 07/11/16 17:42 07/11/16 21:00 07/12/16 02:03 07/12/16 07:13 Bedside Glucose 174 238 H 224 H 165 Test 07/12/16 11:12 Bedside Glucose 133 Medications Medications Current Medications Atorvastatin Calcium (Lipitor) 40 mg HS PO Last administered on 07/11/16t 20:58 ; Admin Dose 40 MG; Start 07/06/16 at 21:00 Benazepril HCl (Lotensin) 20 mg DAILY PO Last administered on 07/12/16 08:09; Admin Dose 20 MG; Start 07/07/16 at 09:00 Insulin Glargine (Lantus) 25 unit QHS SC Last administered on 07/11/16 21:04; Admin Dose 25 UNIT; Start 07/06/16 at 21:30 Pantoprazole (Protonix Tab) 40 mg DAILY@06 PO Last administered on 07/12/16 05 :26; Admin Dose 40 MG; Start 07/07/16 at 06:00 Tramadol HCl (Ultram) 50 mg Q6H PRN PO PAIN LEVEL 1-5 Last administered on 07/11 18:48; Admin Dose 50 MG; Start 07/06/16 at 20:30 Acetaminophen (Tylenol Tab) 650 mg Q6H PRN PO PAIN LEVEL 1-3 OR FEVER; Start at 20:30 Morphine Sulfate (morphine) 1 mg Q4H PRN IV SEVERE PAIN LEVEL 7-10 Last administered on 07/11/16 01:29; Admin Dose 1 MG; Start 07/06/16 at 20:30 Docusate Sodium (Colace) 100 mg Q12H PRN PO CONSTIPATION; Start 07/06/16 at 20: 30 Magnesium Hydroxide (Milk Of Mag) 30 ml DAILY PRN PO CONSTIPATION; Start at 20:30 Bisacodyl (Dulcolax) 5 mg DAILY PRN PO CONSTIPATION; Start 07/06/16 at 20:30 Bisacodyl (Dulcolax Supp) 10 mg DAILY PRN [place] CONSTIPATION; Start 07/06/16 at 20 :30 Sodium Biphosphate/ Sodium Phosphate (Fleet Enema) 133 ml DAILY PRN TN CONSTIPATION; Start 07/06/16 at 20:30 Zolpidem Tartrate (Ambien) 5 mg QHS PRN PO SLEEP; Start 07/06/16 at 20:30 Heparin Sodium (Porcine) (Heparin (5000 Units/0.5 ml)) 5,000 unit Q12 SC Last administered on 07/12/16 08:10; Admin Dose 5,000 UNIT; Start 07/06/16 at 21:00 Diagnostic Test (Pha) (Accu-Chek) 1 ea 02 XX Last administered on 07/12/16 02: 06; Admin Dose 1 EA; Start 07/07/16 at 02:00 Sodium Hypochlorite (Dakin'S (Dilute 1/40%)) 1 applic DAILY IRR Last administered on 07/10/16 08:26; Admin Dose 1 APPLIC; Start 07/07/16 at 09:00 Miscellaneous Information 1 ea NOTE XX ; Start 07/06/16 at 21:00 Glucose (Glutose) 15 gm Q15M PRN PO DECREASED GLUCOSE; Start 07/06/16 at 21:00 Glucose (Glutose) 22.5 gm Q15M PRN PO DECREASED GLUCOSE; Start 07/06/16 at 21: 00 Dextrose (D50w Syringe) 25 ml Q15M PRN IV DECREASED GLUCOSE; Start 07/06/16 at 21:00 Dextrose (D50w Syringe) 50 ml Q15M PRN IV DECREASED GLUCOSE; Start 07/06/16 at 21:00 Glucagon (Glucagen) 1 mg Q15M PRN IM DECREASED GLUCOSE; Start 07/06/16 at 21:00 Glucose (Glutose) 15 gm Q15M PRN BUCCAL DECREASED GLUCOSE; Start 07/06/16 at 21 :00 Silver Sulfadiazine (Thermazene 1% 25 Gm) 1 applic BID TOP Last administered on 07/11/16 21:08; Admin Dose 1 APPLIC; Start 07/06/16 at 21:30 Amlodipine Besylate (Norvasc) 10 mg DAILY PO Last administered on 07/12/16 08: 09; Admin Dose 10 MG; Start 07/10/16 at 09:00 Hydralazine HCl (Apresoline) 50 mg Q6 PRN PO ELEVATED BLOOD PRESSURE; Start at 23:00 Acetaminophen/ Hydrocodone Bitart ([place] (5/325)) 1 tab Q6H PRN PO PAIN LEVEL 6 -10 Last administered on 07/12/16 05:25; Admin Dose 1 TAB; Start 07/10/16 at 19 :00 Ibuprofen (Motrin) 600 mg Q6H PRN PO PAIN LEVEL 1-5; Start 07/10/16 at 19:00 Diphenhydramine HCl (Benadryl) 25 mg Q6H PRN IV ITCHING; Start 07/10/16 at 19: 00 Ondansetron HCl 4 mg 4 mg Q6H PRN IV NAUSEA AND/OR VOMITING Last administered on 07/12/16 09:17; Admin Dose 4 MG; Start 07/10/16 at 19:00 Vancomycin HCl (Vancocin) 250 ml @ 125 mls/hr Q12H IVPB Last administered on 02:27; Admin Dose 125 MLS/HR; Start 07/11/16 at 14:00 Miscellaneous Information (*Rx Drug Level Order Reminder*) VANCOMYCIN TROUGH AT 1300 ONCE ONCE XX ; Start 07/13/16 at 13:00; Stop 07/13/16 at 13:01 JOSELITO AGARWAL NP July 12, 2016 14:30
[2016-07-12] MEDS: SILVER SULFADIAZINE 1% 25 GM CR TOP SCH (18:31)
== END 2016-07-12 18:54 | disposition home IV services (08) | DRG 853 ==
LOC: E/R 16:20 → PP2 17:35
PROVIDERS: ADMIT Internal Medicine Nephrology; ATTEND Internal Medicine Nephrology
PROC: 0QBQ0ZX Excision of Right Toe Phalanx, Open Approach, Diagnostic (ICD-10-PCS; 2016-07-10)
PROC: 0QBR0ZX Excision of Left Toe Phalanx, Open Approach, Diagnostic (ICD-10-PCS; principal; 2016-07-10 17:00)
DX: A41.02 Sepsis due to Methicillin resistant Staphylococcus aureus (principal); R65.21 Severe sepsis with septic shock; E11.40 Type 2 diabetes mellitus with diabetic neuropathy, unspecified; E11.52 Type 2 diabetes mellitus with diabetic peripheral angiopathy with gangrene; M86.8X7 Other osteomyelitis, ankle and foot; L03.116 Cellulitis of left lower limb; L03.115 Cellulitis of right lower limb; E11.69 Type 2 diabetes mellitus with other specified complication; E11.65 Type 2 diabetes mellitus with hyperglycemia; Z79.4 Long term (current) use of insulin; E78.5 Hyperlipidemia, unspecified; F03.90 Unspecified dementia, unspecified severity, without behavioral disturbance, psychotic disturbance, mood disturbance, and anxiety; E11.621 Type 2 diabetes mellitus with foot ulcer; Z60.2 Problems related to living alone; L97.522 Non-pressure chronic ulcer of other part of left foot with fat layer exposed; L97.511 Non-pressure chronic ulcer of other part of right foot limited to breakdown of skin; I10 Essential (primary) hypertension
CPT/HCPCS: 36415; 71010; 80048; 80053; 80202; 82962; 83605; 84484; 85025; 85610; 85651; 85730; 86140; 87040; 87070; 87075; 87081; 88304; 88311; 93005; 96374; 96375; J1644; J1815; J2270; J2405; J2543; J2765; J3010; J3370; J7030; J7042; J7050

== ENCOUNTER 2016-08-22 20:54 | Emergency (ER) | payer MEDICARE, MEDICAID ==
[~2016-08-22] VITALS: Ht 162.6 cm; Wt 81.5 kg
[~2016-08-22 20:54] MED LIST changes: -CALC1TAB80 PO; -GABA300C PO; -MULT1TAB59 PO; -PHEN100C PO
[2016-08-22 20:59] VITALS: Ht 162.6 cm; Wt 81.5 kg
--- NOTE | 2016-08-22 22:03 | ERD ---
ER Documentation Chief Complaint Date/Time DATE: 08/22/16 TIME: 22:02 Chief Complaint requesting removal of left PICC line HPI 68-year-old female comes in with complaints of wanting a PICC line removed. No complaints. No other issues. ROS All systems reviewed and are negative except as per history of present illness. Medications Home Meds Active Scripts Sitagliptin Phos/Metformin HCl (Janumet 50-1,000 mg Tablet) 1 Each Tablet, 1 EACH PO BID, #180 TAB Prov:MARIAN BURNS MD 07/12/16 Benazepril Hcl* (Benazepril Hcl*) 20 Mg Tablet, 20 MG PO DAILY, #90 TAB Prov:MARIAN BURNS MD 07/12/16 Atorvastatin* (Atorvastatin*) 40 Mg Tablet, 40 MG PO HS, #90 TAB Prov:MARIAN BURNS MD 07/12/16 Insulin Glargine* (Lantus*) 100 Unit/Ml Soln, 25 UNIT SC QHS for 30 Days Prov:RICCARDO GARY MD 06/19/16 Pantoprazole* (Pantoprazole*) 40 Mg Tablet.dr, 40 MG PO DAILY@06 for 30 Days Prov:RICCARDO GARY MD 06/19/16 Tramadol HCl (Tramadol HCl) 50 Mg Tablet, 50 MG PO Q6H Y for PAIN LEVEL 1-5, #1 TAB Prov:RICCARDO GARY MD 06/19/16 [Vancomycin Iv Per Pharmacy] 1 EA EACH No Conflict Check, 0 EA XX .PER PROTOCOL for 50 Days Prov:RICCARDO GARY MD 06/19/16 Allergies Allergies: Coded Allergies: No Known Drug Allergy (Verified Allergy, Mild, 07/06/16) PMhx/Soc History of Surgery: Yes (pt reports surgery in [facility], 1956, pt poor historian ) Anesthesia Reaction: No Hx Neurological Disorder: No Hx Respiratory Disorders: No Hx Cardiac Disorders: No Hx Psychiatric Problems: No Hx Miscellaneous Medical Probl: Yes (hyperlipidemia) Hx Alcohol Use: No Hx Substance Use: No Hx Tobacco Use: No Smoking Status: Never smoker Physical Exam Vitals Vital Signs Date Time Temp Pulse Resp B/P Pulse Ox O2 Delivery O2 Flow Rate FiO2 08/22/16 20:59 97.3 94 20 151/73 99 Physical Exam Const: [] Head: Atraumatic Eyes: Normal Conjunctiva ENT: Normal External Ears, Nose and Mouth. Neck: Full range of motion..~ No meningismus. Resp: Clear to auscultation bilaterally Cardio: Regular rate and rhythm, no murmurs Abd: Soft, non tender, non distended. Normal bowel sounds Skin: No petechiae or rashes Back: No midline or flank tenderness Ext: No cyanosis, or edema Neur: Awake and alert Psych: Normal Mood and Affect Procedures/MDM Medical decision-making: Patient for PICC line removal. PICC line removed. Discharged home to follow with PCP. Departure Diagnosis: Primary Impression: PIC line (peripherally inserted central catheter) removal Condition: Stable Patient Instructions: Picc Line Care YANNICK MASON Aug 22, 2016 22:03
[2016-08-22 22:05] VITALS: BP 149/77; PULSE 62; RESP 20; TEMP 97.3
== END 2016-08-22 22:12 | disposition home or self-care (01) ==
LOC: E/R 20:54
DX: Z45.2 Encounter for adjustment and management of vascular access device (principal); E11.9 Type 2 diabetes mellitus without complications; Z79.4 Long term (current) use of insulin
CPT/HCPCS: 99282

== ENCOUNTER 2017-02-04 12:04 | Inpatient (IN) | payer MEDICARE, OTHER ==
[~2017-02-04] VITALS: Ht 165.1 cm; Wt 83.6 kg
[2017-02-04] MEDS ORDERED: SOD CHLORIDE 0.9% 1,000 ML IV STA (14:37)
--- NOTE | 2017-02-04 14:47 | ERD ---
ER Documentation Chief Complaint Chief Complaint Infection to bilateral great toe Hx of diabetes HPI This is a 76-year-old female history of diabetes who presents to the emergency room for evaluation of potentially infected toe. The daughter reports that the patient has been dealing with fungal infections of bilateral nails to the lower feet. The patient is currently taking topical medication. However over the last week and a half they have noted a discriminating wound to the right third toe. The family members concerned that it may be infected. There are at [facility] this past week and was started on Keflex. Patient has had several days of Keflex without improvement. They saw the guillotine operator 1 week ago but this wound was not present. No fevers or chills or significant pain has been noted. ROS All systems reviewed and are negative except as per history of present illness. Medications Home Meds Active Scripts Sitagliptin Phos/Metformin HCl (Janumet 50-1,000 mg Tablet) 1 Each Tablet, 1 EACH PO BID, #180 TAB Prov:MARIAN PALACIOS MD 07/12/16 Benazepril Hcl* (Benazepril Hcl*) 20 Mg Tablet, 20 MG PO DAILY, #90 TAB Prov:MARIAN PALACIOS MD 07/12/16 Atorvastatin* (Atorvastatin*) 40 Mg Tablet, 40 MG PO HS, #90 TAB Prov:MARIAN PALACIOS MD 07/12/16 Pantoprazole* (Pantoprazole*) 40 Mg Tablet., 40 MG PO DAILY@06 for 30 Days Prov:RICCARDO GARY MD 06/19/16 Tramadol HCl (Tramadol HCl) 50 Mg Tablet, 50 MG PO Q6H Y for PAIN LEVEL 1-5, #1 TAB Prov:RICCARDO GARY MD 06/19/16 Reported Medications Cephalexin* (Cephalexin*) 500 Mg Capsule, 500 MG PO Q6, #28 CAP started 01-28-17 for 10 days 02/04/17 Clopidogrel Bisulfate (Clopidogrel) 75 Mg Tablet, 75 MG PO DAILY, #30 TAB 02/04/17 Pantoprazole* (Protonix*) 40 Mg Tablet., 40 MG PO DAILY, TAB 02/04/17 Aspirin (Low Dose Aspirin) 81 Mg Tablet.dr, 81 MG PO DAILY, #30 TAB 02/04/17 Glipizide* (Glipizide*) 10 Mg Tablet, 10 MG PO BID, TAB 02/04/17 Discontinued Scripts Insulin Glargine* (Lantus*) 100 Unit/Ml Soln, 25 UNIT SC QHS for 30 Days Prov:RICCARDO GARY MD 06/19/16 [Vancomycin Iv Per Pharmacy] 1 EA EACH No Conflict Check, 0 EA XX .PER PROTOCOL for 50 Days Prov:RICCARDO GARY MD 06/19/16 Allergies Allergies: Coded Allergies: No Known Drug Allergy (Verified Allergy, Mild, 02/04/17) PMhx/Soc History of Surgery: Yes (pt reports surgery in [facility], [facility], pt poor historian ) Anesthesia Reaction: No Hx Neurological Disorder: No Hx Respiratory Disorders: No Hx Cardiac Disorders: No Hx Psychiatric Problems: No Hx Miscellaneous Medical Probl: Yes (hyperlipidemia) Hx Alcohol Use: No Hx Substance Use: No Hx Tobacco Use: No FmHx Family History: diabetes Physical Exam Vitals Vital Signs Date Time Temp Pulse Resp B/P Pulse Ox O2 Delivery O2 Flow Rate FiO2 02/04/17 12:13 98.7 49 20 157/64 100 Physical Exam General: Well developed, well nourished, no acute distress Head: Normocephalic, atraumatic. Eyes: Pupils equally reactive, EOM intact ENT: Moist mucous membranes Neck: Supple, no lymphadenopathy Respiratory: Lungs clear bilaterally, no distress Cardiovascular: RRR, no murmurs, rubs, or gallops Abdominal: Soft, non-tender, non-distended, no peritoneal signs : Deferred MSK: Bilateral lower extremities with toes with evidence of a chronic onychomycosis the patient's right third toe has evidence of discrimination at the distal tip with no significant drainage or discharge. No surrounding erythema warmth or tenderness. 2+ dorsalis pedis and posterior tibial pulses. Neurologic: Alert and oriented, moving all extremities, normal speech, no focal weakness, no cerebellar signs Skin: No rash Psych: Normal mood Result Diagram: 02/04/17 1450 02/04/17 1450 Results 24 hrs Laboratory Tests Test 02/04/17 14:34 02/04/17 14:37 02/04/17 14:50 02/04/17 15:00 Bedside Glucose 427mg/dL Blood Gas Specimen Source Blood venous Arterial Blood Date Drawn 02/04/2017 4:49:10 PM Arterial Blood Gas Puncture Site VENOUS LINE Felix Test N/A Venous Blood pH 7.386 Venous Blood pCO2 (Temp Corrected) 32.4mmHG Venous Blood pO2 (Temp Corrected) 17.9mmHG Venous Blood HCO3 19.0mmol/L Venous Blood Oxygen Saturation 28.4mmHG Venous Blood Base Excess -5.2mmol/L Venous Blood Total Hemoglobin 10.6g/dl Venous Blood Oxyhemoglobin 28.3% Venous Blood Methemoglobin 0.5% Carboxyhemoglobin 0% Blood Gas Temperature 37.0C Blood Gas Actual Respiration Rate 18 Blood Gas Modality ROOM AIR FiO2 21.0% Blood Gas Notified Whom TULIO RT Blood Gas Notified Time 02/04/2017 4:57:28 PM White Blood Count 6.510^3/ul Red Blood Count 3.7710^6/ul Hemoglobin 11.3g/dl Hematocrit 33.2% Mean Corpuscular Volume 88.1fl Mean Corpuscular Hemoglobin 30.0pg Mean Corpuscular Hemoglobin Concent 34.0g/dl Red Cell Distribution Width 12.2% Platelet Count 87236^3/UL Mean Platelet Volume 10.7fl Neutrophils % 68.9% Lymphocytes % 23.5% Monocytes % 6.3% Eosinophils % 0.8% Basophils % 0.3% Nucleated Red Blood Cells % 0.0/100WBC Neutrophils # 4.510^3/ul Lymphocytes # 1.510^3/ul Monocytes # 0.410^3/ul Eosinophils # 0.110^3/ul Basophils # 0.010^3/ul Nucleated Red Blood Cells # 0.010^3/ul Erythrocyte Sedimentation Rate 55mm/Hr Sodium Level 135mmol/L Potassium Level 5.1mmol/L Chloride Level 102mmol/L Carbon Dioxide Level 24mmol/L Anion Gap 14 Blood Urea Nitrogen 17mg/dl Creatinine 0.88mg/dl Glucose Level 441mg/dl Lactic Acid Level 1.3mmol/L Calcium Level 8.9mg/dl C-Reactive Protein 4.0mg/dl Urine Color YELLOW Urine Clarity CLOUDY Urine pH 5.0 Urine Specific [place] 1.023 Urine Ketones NEGATIVEmg/dL Urine Nitrite POSITIVEmg/dL Urine Bilirubin NEGATIVEmg/dL Urine Urobilinogen NEGATIVEmg/dL Urine Leukocyte Esterase 3+Maciel/ul Urine Microscopic RBC 6/HPF Urine Microscopic WBC 114/HPF Urine Squamous Epithelial Cells FEW/HPF Urine Bacteria MODERATE/HPF Urine Mucus FEW/HPF Urine Yeast (Budding) FEW/HPF Urine Hemoglobin 2+mg/dL Urine Glucose 3+mg/dL Urine Total Protein NEGATIVEmg/dl Test 02/04/17 16:30 Lactic Acid Level 0.6mmol/L Current Medications Medications (Trade) Dose Ordered Sig/Shavon Route PRN Reason Start Time Stop Time Status Last Admin Dose Admin Sodium Chloride 1,000 ml @ 1,000 mls/hr Q1H STAT IV 02/04/17 14:37 02/04/17 15:36 DC 02/04/17 14:59 Ceftriaxone Sodium (Rocephin) 50 ml @ 100 mls/hr ONCE ONCE IVPB 02/04/17 16:00 02/04/17 16:29 DC 02/04/17 15:42 Insulin Human Lispro 8 unit 8 unit ONCE STAT SC 02/04/17 16:44 02/04/17 16:46 DC Vancomycin HCl 250 ml @ 125 mls/hr ONCE STAT IVPB 02/04/17 16:46 02/04/17 18:45 Piperacillin Sod/ Tazobactam Sod (Zosyn 3.375gm/ 50 ml (Pmx)) 50 ml @ 100 mls/hr ONCE STAT IVPB 02/04/17 16:46 02/04/17 17:15 DC Procedures/MDM EKG, MONITORS, & DIAGNOSTIC IMAGING: X-ray right foot: IMPRESSION: Chronic resorption of the tuft of the third distal phalanx unchanged since prior exam. Findings are similar to prior exam. Cannot exclude chronic osteomyelitis. Soft tissue ulceration at the tip of the third toe. 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 LAB INTERPRETATION: Hyperglycemia without evidence of diabetic ketoacidosis, elevated ESR and CRP MEDICAL DECISION MAKING: The patient presents for a wound to the right third toe of the foot. The patient has some small discrimination likely secondary to chronic onychomycosis infection. The patient was started on Keflex, I would like to add better MRSA coverage though I believe this is more likely secondary to wound discrimination rather than cellulitis, abscess or deep space infection. The family is concerned because the patient has had osteomyelitis in the past. The presentation is not consistent with osteo-myelitis but I do believe she is at risk for given her diabetes. I believe screening with laboratory testing, x- ray imaging and ESR and CRP would be appropriate. If these screening tests are normal outpatient management might be appropriate with the addition of Bactrim to her regimen. Alternatively if the labs are abnormal inpatient hospitalization for MRI and IV antibiotics would also be reasonable. She has close primary care podiatry follow-up which is also reasonable. ER COURSE: The patient is evidence of urinary tract infection and was given ceftriaxone. She is asymptomatic. No evidence of pyelonephritis. The patient has hyperglycemia without DKA and was given subcutaneous Humalog. The patient was given a meal. Unfortunately, the patient's ESR and CRP are elevated to the point where I believe this could be consistent with acute on chronic osteomyelitis. Vancomycin and Zosyn was provided and the patient will be admitted for further management, podiatry consultation and MRI imaging. Blood cultures taken prior to antibiotics. I kept the patient and/or family informed of laboratory and diagnostic imaging results throughout the emergency room course. DISPOSITION PLAN: Medical surgical admission CONSULTATION: Accepting care team and consultations: I discussed the current laboratory data, diagnostic imaging and emergency care provided. Admitting team: Dr. Priscilla Palacios has recommended Dr. Garcia, Dr. Burch was notified Admitting team indication: Insurance directed Departure Diagnosis: Primary Impression: Urinary tract infection Urinary tract infection type: acute cystitis Hematuria presence: without hematuria Qualified Code: N30.00 - Acute cystitis without hematuria Additional Impressions: Hyperglycemia Osteomyelitis of toe of right foot Condition: Stable ERNESTINA ZEPEDA MD Feb 04, 2017 14:47
[2017-02-04 15:01] LABS: BASOPHILS % 0.3 % (0.0-2.0); EOSINOPHILS # 0.1 10^3/ul (0.0-0.5); EOSINOPHILS % 0.8 % (0.0-7.0); HEMATOCRIT 33.2 % (37.0-47.0); HEMOGLOBIN 11.3 g/dl (12.0-16.0); LYMPHOCYTES # 1.5 10^3/ul (0.8-2.9); LYMPHOCYTES % 23.5 % (15.0-51.0); MEAN CORPUSCULAR VOLUME 88.1 fl (82.0-101.0); MEAN PLATELET VOLUME 10.7 fl (7.4-10.4); MONOCYTE # 0.4 10^3/ul (0.3-0.9); MONOCYTES % 6.3 % (0.0-11.0); NEUTROPHIL # 4.5 10^3/ul (1.6-7.5); NEUTROPHILS % 68.9 % (39.0-77.0); PLATELET COUNT 210 10^3/UL (140-415); RED BLOOD COUNT 3.77 10^6/ul (4.20-5.40); RED CELL DISTRIBUTION WIDTH 12.2 % (11.5-14.5); WHITE BLOOD COUNT 6.5 10^3/ul (4.8-10.8)
--- NOTE | 2017-02-04 15:07 | RADRPT ---
PROCEDURE: XR Foot. CLINICAL INDICATION: Right foot pain. Third toe wound. Evaluate for osteomyelitis. TECHNIQUE: AP, lateral, and oblique views of the right foot are available for review. COMPARISON: 06/10/2016 FINDINGS: There is soft tissue ulceration at the tip of the third toe. The resorption of the tuft of the third distal phalanx is noted similar to prior exam. There are no new fractures, dislocation osteolytic l esion identified. Remainder of the bones of the right foot appear intact. Soft tissues are otherwise within normal limits. There is mild hallux valgus with osteoarthritic changes of the first metatars al phalangeal joint. . Calcific atherosclerosis is present. IMPRESSION: Chronic resorption of the tuft of the third distal phalanx unchanged since prior exam. Findings are similar to prior exam. Cannot exclude chronic osteomyelitis. Soft tissue ulceration at the tip of the third toe. 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 RPTAT: QQ .Jhonny Cespedes MD, MD Date Time Electronically viewed and signed by .Jhonny Cespedes MD, on 02/04/2017 15:07 .L/
[2017-02-04 15:27] LABS: ADD UMIC YES; UR ASCORBIC ACID NEGATIVE (NEGATIVE); UR BACTERIA MODERATE /HPF (NONE SEEN); UR BILIRUBIN (Dip) NEGATIVE (NEGATIVE); UR BLOOD (Dip) 2+ mg/dL (NEGATIVE); UR BUDDING YEAST FEW /HPF (NONE SEEN); UR CLARITY CLOUDY (CLEAR); UR COLOR YELLOW (YELLOW); UR GLUCOSE (Dip) 3+ mg/dL (NEGATIVE); UR KETONES (Dip) NEGATIVE (NEGATIVE); UR LEUKOCYTE ESTERASE (Dip) 3+ Leu/ul (NEGATIVE); UR MUCUS FEW /HPF (NONE SEEN); UR NITRITE (Dip) POSITIVE (NEGATIVE); UR RBC 6 /HPF (0-5); UR SPECIFIC GRAVITY (Dip) 1.023 (1.003-1.030); UR SQUAMOUS EPITHELIAL CELL FEW /HPF (FEW); UR TOTAL PROTEIN (Dip) NEGATIVE (NEGATIVE); UR UROBILINOGEN (Dip) NEGATIVE (NEGATIVE)
[2017-02-04 15:31] LABS: CALCIUM 8.9 mg/dl (8.4-10.2); CREATININE 0.88 mg/dl (0.44-1.00); POTASSIUM 5.1 mmol/L (3.5-5.1)
[2017-02-04] MEDS ORDERED: GLIP-95 PO (15:45)
[2017-02-04] MEDS ORDERED: ASPI-664 PO (15:46)
[2017-02-04] MEDS ORDERED: PANT40TA3 PO (15:46)
[2017-02-04] MEDS ORDERED: CLOP75TA27 PO (15:47)
[2017-02-04] MEDS ORDERED: CEPH500C PO (15:49)
[2017-02-04] MEDS ORDERED: CEFTRIAXONE 1 GM/50 ML (PMX) 50 ML IVPB ONE (16:00)
[2017-02-04] MEDS ORDERED: INSULIN LISPRO 100 UNIT/ML VIAL SC STA (16:44)
[2017-02-04] MEDS ORDERED: VANCOMYCIN 1 GM (PMX) 250 ML IVPB STA (16:46)
[2017-02-04] MEDS ORDERED: PIPER-TAZO 3.375 GM IV (PMX) 50 ML IVPB STA (16:46)
[2017-02-04 16:57] LABS: MODE ROOM AIR; MetHgb Venous 0.5 %; Sample Type Blood venous; Venous COHb 0 %; Venous Fraction OxyHgb 28.3 %; Venous Total Hemglobin 10.6 g/dl
[2017-02-04] MEDS ORDERED: ONDANSETRON 4 MG INJ IV PRN (18:00)
[2017-02-04] MEDS ORDERED: ACETAMINOPHEN 325 MG TAB PO PRN ×2 (18:00→19:30)
[2017-02-04 19:21] VITALS: TEMP 98.3
[2017-02-04] MEDS ORDERED: NACL 0.9% 3 ML SYG IV SCH (19:30)
[2017-02-04] MEDS: ONDANSETRON 4 MG INJ IV PRN (19:41)
[2017-02-04] MEDS: morphine 2 MG INJ IV PRN (19:41)
[2017-02-04 22:02] VITALS: BP 153/72; RESP 18
[2017-02-04 22:15] VITALS: Ht 165.1 cm; Wt 83.6 kg
[2017-02-04] MEDS: FAMOTIDINE 20 MG INJ IV SCH (22:49)
[2017-02-04] MEDS ORDERED: GLUCOSE GEL 15 GRAM TUBE PO PRN ×2 (23:00)
[2017-02-04] MEDS ORDERED: GLUCAGON 1 MG INJ IM PRN (23:00)
[2017-02-04] MEDS ORDERED: GLUCOSE GEL 15 GRAM TUBE BUCCAL PRN (23:00)
[2017-02-04] MEDS ORDERED: DEXTROSE 50% 50 ML SYRINGE IV PRN ×2 (23:00)
[2017-02-04] MEDS: traMADol 50 MG TAB PO PRN (23:57)
[2017-02-04] MEDS: INSULIN ASPART [NOVOLOG] 3 ML PEN SC SCH (23:58)
[2017-02-05] MEDS ORDERED: ACCU-CHEK XX SCH (02:00)
[2017-02-05 02:46] VITALS: BP 123/59; RESP 18
[2017-02-05 06:46] LABS: BASOPHILS % 0.4 % (0.0-2.0); EOSINOPHILS # 0.1 10^3/ul (0.0-0.5); EOSINOPHILS % 1.3 % (0.0-7.0); HEMATOCRIT 31.4 % (37.0-47.0); HEMOGLOBIN 10.8 g/dl (12.0-16.0); LYMPHOCYTES # 1.6 10^3/ul (0.8-2.9); LYMPHOCYTES % 33.4 % (15.0-51.0); MEAN CORPUSCULAR HEMOGLOBIN 29.8 pg (29.0-33.0); MEAN CORPUSCULAR HGB CONC 34.4 g/dl (32.0-37.0); MEAN CORPUSCULAR VOLUME 86.7 fl (82.0-101.0); MEAN PLATELET VOLUME 10.3 fl (7.4-10.4); MONOCYTE # 0.4 10^3/ul (0.3-0.9); MONOCYTES % 8.9 % (0.0-11.0); NEUTROPHIL # 2.6 10^3/ul (1.6-7.5); NEUTROPHILS % 55.8 % (39.0-77.0); PLATELET COUNT 201 10^3/UL (140-415); RED BLOOD COUNT 3.62 10^6/ul (4.20-5.40); RED CELL DISTRIBUTION WIDTH 11.9 % (11.5-14.5); WHITE BLOOD COUNT 4.7 10^3/ul (4.8-10.8)
[2017-02-05 07:15] LABS: ALBUMIN 3.1 g/dl (3.3-4.9); BILIRUBIN,INDIRECT 0.1 mg/dl (0-1.1); BILIRUBIN,TOTAL 0.1 mg/dl (0.2-1.3); CALCIUM 8.7 mg/dl (8.4-10.2); CREATININE 0.9 mg/dl (0.44-1.00); POTASSIUM 4.6 mmol/L (3.5-5.1); TOTAL PROTEIN 6.2 g/dl (6.1-8.1)
[2017-02-05 07:27] VITALS: BP 114/66; RESP 20
[2017-02-05] MEDS ORDERED: glipiZIDE 10 MG TAB PO SCH (07:30)
[2017-02-05] MEDS: ENOXAPARIN 30 MG/0.3 ML SYG SC SCH (08:08)
[2017-02-05] MEDS: INSULIN ASPART [NOVOLOG] 3 ML PEN SC SCH ×5 (08:08→20:44)
[2017-02-05] MEDS: CLOPIDOGREL 75 MG TAB PO SCH (08:09)
[2017-02-05] MEDS: ASPIRIN (EC) 81 MG TAB PO SCH (08:09)
[2017-02-05] MEDS: metFORMIN 500 MG TAB PO SCH ×2 (08:09→17:26)
[2017-02-05] MEDS: LINAGLIPTIN 5 MG TABLET PO SCH (08:09)
[2017-02-05] MEDS: FAMOTIDINE 20 MG INJ IV SCH ×2 (08:09→20:43)
[2017-02-05] MEDS: traMADol 50 MG TAB PO PRN ×2 (08:10→15:03)
--- NOTE | 2017-02-05 11:27 | HP ---
Date/Time of Note Date/Time of Note DATE: 02/05/17 TIME: 11:24 Assessment/Plan VTE Prophylaxis VTE Prophylaxis Intervention: LMWH Lines/Catheters IV Catheter Type (from [facility]): Saline Lock Assessment/Plan Assessment/Plan -Right third toe ulcer, will ask Dr. Raya to see patient in podiatry consultation, Dr. San in vascular surgery consultation, in infection disease consultation. -Osteomyelitis of toe of right foot -Urinary tract infection -Severe peripheral arterial disease -Hypertension -Hyperlipidemia -Hyperglycemia in patient with diabetes mellitus type 2. Will obtain hemoglobin A1c start Lantus and pre-meal NovoLog -Obesity Further recommendations based on clinical course. Plan of care discussed with Dr. Garcia HPI/ROS Admit Date/Time Admit Date/Time Feb 04, 2017 at 17:34 Hx of Present Illness The patient is 76-year-old female with a history of diabetes with diabetic neuropathy, severe peripheral arterial disease status post multiple interventions by Dr. San, hypertension, hyperlipidemia, bilateral toes osteomyelitis status post wound debridement by Dr. Lee. Patient presented to the emergency room for evaluation for an infected toe. Patient has a history of fungal infection bilateral toenails and was taking medications for that. Patient was evaluated previously at [facility] last week and was started on Keflex for possible infection of the right third toe. Patient was started on broad-spectrum antibiotic and was admitted for further evaluation and management. PMH/Family/Social Past Medical History Medical History: diabetes, high cholesterol, hypertension, other (Peripheral arterial disease) Past Surgical History Status post vascular interventions, status post left 2nd toe debridement, C- section many years ago, status post hysterectomy, status post left shoulder surgery. Family History Significant Family History: no pertinent family hx Social History Alcohol Use: none Smoking Status: Never smoker Drug Use: none Exam/Review of Systems Vital Signs Vitals Vital Signs Date Time Temp Pulse Resp B/P Pulse Ox O2 Delivery O2 Flow Rate FiO2 02/05/17 07:27 98.0 46 20 114/66 98 02/04/17 19:21 Room Air Intake and Output 02/04/17 02/04/17 02/05/17 15:00 23:00 07:00 Intake Total 1050 ml 360 ml Balance 1050 ml 360 ml Exam Constitutional: alert, oriented Head: atraumatic, normocephalic Neck: supple Respiratory: normal air movement Cardiovascular: nl pulses Gastrointestinal: non-tender, soft Musculoskeletal: nl extremities to inspection Extremities: normal pulses, other (Right third toe wound, left second toe wound.) Neurological: SKIN FITTER II-XII intact, nl mental status Skin: nl turgor Labs Result Diagram: 02/05/17 0547 02/05/17 05 Medications Medications Current Medications Ondansetron HCl (Zofran Inj) 4 mg Q6H PRN IV NAUSEA AND/OR VOMITING Last administered on 02/04/17 19:41; Admin Dose 4 MG; Start 02/04/17 at 19:30 Acetaminophen (Tylenol Tab) 650 mg Q6H PRN PO PAIN LEVEL 1-3 OR FEVER; Start 02/04/17 at 19:30 Morphine Sulfate (morphine) 2 mg Q4H PRN IV SEVERE PAIN LEVEL 7-10 Last administered on 02/04/17 19:41; Admin Dose 2 MG; Start 02/04/17 at 19:30 Famotidine (Pepcid Iv) 20 mg Q12 IV Last administered on 02/05/17 08:09; Admin Dose 20 MG; Start 02/04/17 at 21:00 Enoxaparin Sodium 30 mg 30 mg DAILY SC Last administered on 02/05/17 08:08; Admin Dose 30 MG; Start 02/05/17 at 09:00 Ceftriaxone Sodium (Rocephin) 50 ml @ 100 mls/hr DAILY IVPB ; Start 02/05/17 at 15:00 Aspirin (Halfprin) 81 mg DAILY PO Last administered on 02/05/17 08:09; Admin Dose 81 MG; Start 02/05/17 at 09:00 Atorvastatin Calcium (Lipitor) 40 mg HS PO ; Start 02/05/17 at 21:00 Clopidogrel Bisulfate (plaVIX) 75 mg DAILY PO Last administered on 02/05/17 08:09; Admin Dose 75 MG; Start 02/05/17 at 09:00 Tramadol HCl (Ultram) 50 mg Q6H PRN PO PAIN LEVEL 1-5 Last administered on 08:10; Admin Dose 50 MG; Start 02/04/17 at 22:30 Clonidine (Catapres) 0.1 mg Q6H PRN PO ELEVATED BLOOD PRESSURE; Start at 23:00 Diagnostic Test (Pha) (Accu-Chek) 1 ea 02 XX Last administered on 02/05/17t 02 :15; Admin Dose 1 EA; Start 02/05/17 at 02:00 Miscellaneous Information 1 ea NOTE XX ; Start 02/04/17 at 23:00 Glucose (Glutose) 15 gm Q15M PRN PO DECREASED GLUCOSE; Start 02/04/17 at 23:00 Glucose (Glutose) 22.5 gm Q15M PRN PO DECREASED GLUCOSE; Start 02/04/17 at 23: 00 Dextrose (D50w Syringe) 25 ml Q15M PRN IV DECREASED GLUCOSE; Start 02/04/17 at 23:00 Dextrose (D50w Syringe) 50 ml Q15M PRN IV DECREASED GLUCOSE; Start 02/04/17 at 23:00 Glucagon (Glucagen) 1 mg Q15M PRN IM DECREASED GLUCOSE; Start 02/04/17 at 23: 00 Glucose (Glutose) 15 gm Q15M PRN BUCCAL DECREASED GLUCOSE; Start 02/04/17 at 23:00 Influenza Virus Vaccine (Fluzone) 0.5 ml ONCE ONCE IM* ; Start 02/06/17 at 09: 00; Stop 02/06/17 at 09:01 JOSE RANGEL Feb 05, 2017 11:27
[2017-02-05 14:00] VITALS: BP 133/58; RESP 20
[2017-02-05] MEDS: CEFTRIAXONE 1 GM/50 ML (PMX) 50 ML IVPB SCH (15:02)
[2017-02-05] MEDS ORDERED: VANCOMYCIN IV PER PHARMACY XX SCH (17:30)
--- NOTE | 2017-02-05 19:21 | CONS ---
Date/Time of Note Date/Time of Note DATE: 02/05/17 TIME: 19:18 Assessment/Plan Assessment/Plan Problems: (1) Peripheral vascular disease (2) Non-pressure chronic ulcer of other part of right foot limited to breakdown of skin (3) Non-pressure chronic ulcer of other part of left foot with fat layer exposed (4) PAD (peripheral artery disease) Status: Chronic (5) Urinary tract infection Status: Acute Qualifiers: Qualified Code: N30.00 - Acute cystitis without hematuria (6) Hyperglycemia Status: Acute (7) Osteomyelitis of toe of right foot Status: Acute (8) E. 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 Pt is clinically stable, chronic osteo Consider Podiatry consult for possible distal phalanges amputation, Dr ibarra has seen pt before. can be done out pt as well. I will continue Abx No intervention needed at this time. will plan with podiatry to see if amputation is needed we plan out pt work up and angio. Consultation Date/Type/Reason Admit Date/Time Feb 04, 2017 at 17:34 Date of Consultation: Feb 05, 2017 Type of Consultation: Int and Endovascular Cardiolog Reason for Consultation PAD Patient is know pt to me from out pt for cardiac and vascular care. She has severe below the knee disease with revascularization of both legs but has severe below ankle microvessels disease which are multiple CTOs and non revasculaizable. she is back in the hospital with Chronic PAD and osteo with wound. Constitutional: no complaints Past Medical History Medical History: diabetes, high cholesterol, hypertension, other (Peripheral arterial disease) Social History Alcohol Use: none Smoking Status: Never smoker Drug Use: none Exam/Review of Systems Vital Signs Vitals Vital Signs Date Time Temp Pulse Resp B/P Pulse Ox O2 Delivery O2 Flow Rate FiO2 02/05/17 14:00 98.2 46 20 133/58 98 02/04/17 19:21 Room Air Intake and Output 02/04/17 02/04/17 02/05/17 15:00 23:00 07:00 Intake Total 1050 ml 360 ml Balance 1050 ml 360 ml Exam Constitutional: alert, oriented, well developed Psych: no complaints Head: normocephalic Eyes: nl conjunctiva ENMT: nl external ears & nose Neck: supple Respiratory: clear to auscultation Cardiovascular: regular rate and rhythm Gastrointestinal: soft Results Result Diagram: 02/05/17 0547 02/05/17 0547 Results 24 hrs Laboratory Tests Test 02/04/17 21:01 02/04/17 22:25 02/04/17 23:53 02/05/17 02:13 Lactic Acid Level 1.8 Bedside Glucose 268 H 264 H 243 H Test 02/05/17 05:47 02/05/17 07:44 02/05/17 11:33 02/05/17 17:23 White Blood Count 4.7 #L Red Blood Count 3.62 L Hemoglobin 10.8 L Hematocrit 31.4 L Mean Corpuscular Volume 86.7 Mean Corpuscular Hemoglobin 29.8 Mean Corpuscular Hemoglobin Concent 34.4 Red Cell Distribution Width 11.9 Platelet Count 201 Mean Platelet Volume 10.3 Neutrophils % 55.8 Lymphocytes % 33.4 Monocytes % 8.9 Eosinophils % 1.3 Basophils % 0.4 Nucleated Red Blood Cells % 0.0 Neutrophils # 2.6 Lymphocytes # 1.6 Monocytes # 0.4 Eosinophils # 0.1 Basophils # 0.0 Nucleated Red Blood Cells # 0.0 Sodium Level 141 Potassium Level 4.6 Chloride Level 106 Carbon Dioxide Level 29 Anion Gap 11 Blood Urea Nitrogen 16 Creatinine 0.90 Glucose Level 252 #H Hemoglobin A1c 10.8 H Calcium Level 8.7 Total Bilirubin 0.1 L Direct Bilirubin 0.00 Indirect Bilirubin 0.1 Aspartate Amino Transf (AST/SGOT) 15 Alanine Aminotransferase (ALT/SGPT) 30 Alkaline Phosphatase 113 Total Protein 6.2 Albumin 3.1 L Globulin 3.10 Albumin/Globulin Ratio 1.00 Bedside Glucose 251 H 255 H 201 Medications Medications Current Medications Ondansetron HCl (Zofran Inj) 4 mg Q6H PRN IV NAUSEA AND/OR VOMITING Last administered on 02/04/17 19:41; Admin Dose 4 MG; Start 02/04/17 at 19:30 Acetaminophen (Tylenol Tab) 650 mg Q6H PRN PO PAIN LEVEL 1-3 OR FEVER; Start 02/04/17 at 19:30 Morphine Sulfate (morphine) 2 mg Q4H PRN IV SEVERE PAIN LEVEL 7-10 Last administered on 02/04/17 19:41; Admin Dose 2 MG; Start 02/04/17 at 19:30 Famotidine (Pepcid Iv) 20 mg Q12 IV Last administered on 02/05/17 08:09; Admin Dose 20 MG; Start 02/04/17 at 21:00 Enoxaparin Sodium 30 mg 30 mg DAILY SC Last administered on 02/05/17 08:08; Admin Dose 30 MG; Start 02/05/17 at 09:00 Ceftriaxone Sodium (Rocephin) 50 ml @ 100 mls/hr DAILY IVPB Last administered on 02/05/17 15:02; Admin Dose 100 MLS/HR; Start 02/05/17 at 15:00 Aspirin (Halfprin) 81 mg DAILY PO Last administered on 02/05/17 08:09; Admin Dose 81 MG; Start 02/05/17 at 09:00 Atorvastatin Calcium (Lipitor) 40 mg HS PO ; Start 02/05/17 at 21:00 Clopidogrel Bisulfate (plaVIX) 75 mg DAILY PO Last administered on 02/05/17 08:09; Admin Dose 75 MG; Start 02/05/17 at 09:00 Tramadol HCl (Ultram) 50 mg Q6H PRN PO PAIN LEVEL 1-5 Last administered on 15:03; Admin Dose 50 MG; Start 02/04/17 at 22:30 Clonidine (Catapres) 0.1 mg Q6H PRN PO ELEVATED BLOOD PRESSURE; Start at 23:00 Miscellaneous Information 1 ea NOTE XX ; Start 02/04/17 at 23:00 Glucose (Glutose) 15 gm Q15M PRN PO DECREASED GLUCOSE; Start 02/04/17 at 23:00 Glucose (Glutose) 22.5 gm Q15M PRN PO DECREASED GLUCOSE; Start 02/04/17 at 23: 00 Dextrose (D50w Syringe) 25 ml Q15M PRN IV DECREASED GLUCOSE; Start 02/04/17 at 23:00 Dextrose (D50w Syringe) 50 ml Q15M PRN IV DECREASED GLUCOSE; Start 02/04/17 at 23:00 Glucagon (Glucagen) 1 mg Q15M PRN IM DECREASED GLUCOSE; Start 02/04/17 at 23: 00 Glucose (Glutose) 15 gm Q15M PRN BUCCAL DECREASED GLUCOSE; Start 02/04/17 at 23:00 Influenza Virus Vaccine (Fluzone) 0.5 ml ONCE ONCE IM* ; Start 02/06/17 at 09: 00; Stop 02/06/17 at 09:01 Diagnostic Test (Pha) (Accu-Chek) 1 ea 02 XX ; Start 02/06/17 at 02:00 Insulin Glargine (Lantus) 17 unit DAILY@20 SC ; Start 02/05/17 at 20:00 Fluconazole 200 mg 200 mg DAILY PO ; Start 02/06/17 at 09:00 Vancomycin HCl/ Dextrose/Water (Vancocin/D5W) 150 ml @ 75 mls/hr Q12H IVPB ; Start 02/05/17 at 18:30 FLORINDA GOMEZ MD Feb 05, 2017 19:21
[2017-02-05 19:28] VITALS: BP 126/58; RESP 20
[2017-02-05] MEDS ORDERED: ATORVASTATIN 40 MG TAB ONE (19:37)
[2017-02-05] MEDS: VANCOMYCIN 750 MG in DEXTROSE 5% 150 ML IVPB SCH (20:01)
[2017-02-05] MEDS: INSULIN GLARGINE [LANtus] 3 ML PEN SC SCH (20:42)
[2017-02-05] MEDS: ATORVASTATIN 40 MG TAB PO SCH (20:43)
--- NOTE | 2017-02-05 22:24 | CONS ---
DATE OF ADMISSION: 02/04/2017 DATE OF CONSULTATION: 02/05/2017 INFECTIOUS DISEASE CONSULTATION REASON FOR CONSULTATION: Antibiotic management. HISTORY OF PRESENT ILLNESS: Louise Pacheco is a 76-year-old female with numerous problems, who comes in with infected right third toe and osteomyelitis of the right foot. Past problems incl ude: 1. Adult-onset diabetes mellitus. 2. Diabetic neuropathy. 3. Peripheral artery disease with multiple interventions by Dr. San. 4. Hypertension. 5. Hyperlipidemia. 6. Osteomyelitis of, I believe, the right third toe, status post wound debridement by Dr. Lee. Acutely, the patient comes in for evaluation of infected toe. She has a history of fungal infection in the toenails, taking medications for that. The patient was started on Keflex at [facility] last week for possible infection of the right third toe. PAST MEDICAL HISTORY: Operations: Status post vascular interventions, status post left second toe debridement, status post many years ago, status post hysterectomy, status post left should er surgery. FAMILY HISTORY: Noncontributory. SOCIAL HISTORY: She does not smoke, drink or abuse drugs. ALLERGIES: NONE TO PENICILLIN, SULFA OR FOODS. MEDICATIONS: Per chart. REVIEW OF SYSTEMS: As per HPI. PHYSICAL EXAMINATION: GENERAL: The patient is an elderly ill-appearing female who is awake, responsive, in no acute distr ess. VITAL SIGNS: Stable. She is afebrile. SKIN: Without generalized rash. HEENT: Within normal limits. NECK: Supple. LYMPH NODES: None palpable. CHEST: Decreased breath sounds at the bases. HEART: Without murmur or gallop. ABDOMEN: Soft, nontender without organosplenomegaly or masses. EXTREMITIES: She has right third toe wound, left second toe wound. RECTAL AND GENITAL: Deferred. NEUROLOGIC: No focal neurological abnormalities. ANCILLARY LABORATORY DATA: White count 4.7, H and H 10.8 and 31.4, platelet count . BUN and c reatinine 16/0.9. IMPRESSION AND PLAN: The patient has a right third toe ulcer. Dr. Lee will see patient in podi atric consultation. She has osteomyelitis of the right foot. On evaluation of her labs, her urine is cloudy, 3+ leukocyte esterase, 114 white cells per high-power field with a few yeast. In essence , she has urinary tract infection as well. The patient was started on ceftriaxone. She received va ncomycin and Zosyn as well, and she may benefit from fluconazole. She is currently on ceftriaxone, and she received vancomycin once, so she should be on vancomycin and ceftriaxone, as well as flucona zole. Dictated By: KT BROWNING MD, JD/NTS Conf#: [id number] DID#: [id number] CC: RADHA DAWN MD;*EndCC*
[2017-02-06] MEDS: ACCU-CHEK XX SCH (01:28)
[2017-02-06 01:59] VITALS: BP 108/63; RESP 20
[2017-02-06] MEDS: VANCOMYCIN 750 MG in DEXTROSE 5% 150 ML IVPB SCH (06:53)
[2017-02-06 07:04] LABS: EOSINOPHILS # 0.1 10^3/ul (0.0-0.5); EOSINOPHILS % 1.2 % (0.0-7.0); HEMATOCRIT 32.4 % (37.0-47.0); LYMPHOCYTES # 1.3 10^3/ul (0.8-2.9); LYMPHOCYTES % 30.8 % (15.0-51.0); MEAN CORPUSCULAR HEMOGLOBIN 29.4 pg (29.0-33.0); MEAN CORPUSCULAR VOLUME 86.6 fl (82.0-101.0); MEAN PLATELET VOLUME 10.1 fl (7.4-10.4); MONOCYTE # 0.4 10^3/ul (0.3-0.9); MONOCYTES % 8.6 % (0.0-11.0); NEUTROPHIL # 2.4 10^3/ul (1.6-7.5); NEUTROPHILS % 57.9 % (39.0-77.0); PLATELET COUNT 227 10^3/UL (140-415); RED BLOOD COUNT 3.74 10^6/ul (4.20-5.40); RED CELL DISTRIBUTION WIDTH 11.9 % (11.5-14.5); WHITE BLOOD COUNT 4.1 10^3/ul (4.8-10.8)
[2017-02-06 07:36] LABS: CALCIUM 9.2 mg/dl (8.4-10.2); CHOL/HDL RATIO 4.7 RATIO; CREATININE 0.85 mg/dl (0.44-1.00); POTASSIUM 4.5 mmol/L (3.5-5.1)
[2017-02-06] MEDS ORDERED: LIDOCAINE 4% CR TOP PRN (08:00)
[2017-02-06 08:02] VITALS: BP 157/70; RESP 20
[2017-02-06] MEDS: CLOPIDOGREL 75 MG TAB PO SCH (08:19)
[2017-02-06] MEDS: ASPIRIN (EC) 81 MG TAB PO SCH (08:19)
[2017-02-06] MEDS: FAMOTIDINE 20 MG INJ IV SCH ×2 (08:19→22:17)
[2017-02-06] MEDS: FLUCONAZOLE 200 MG TAB PO SCH (08:19)
[2017-02-06] MEDS: INSULIN ASPART [NOVOLOG] 3 ML PEN SC SCH ×7 (08:21→21:00)
[2017-02-06] MEDS: ENOXAPARIN 30 MG/0.3 ML SYG SC SCH (08:22)
[2017-02-06] MEDS: LINAGLIPTIN 5 MG TABLET PO SCH (08:29)
[2017-02-06] MEDS: metFORMIN 500 MG TAB PO SCH ×2 (08:29→17:26)
[2017-02-06] MEDS: CEFTRIAXONE 1 GM/50 ML (PMX) 50 ML IVPB SCH (08:30)
[2017-02-06] MEDS: GENTAMICIN 0.1% 15 GM OINT TOP SCH ×4 (09:00→22:19)
[2017-02-06] MEDS ORDERED: INFLUENZA VIRUS VACCINE 0.5 ML (DISPENSING) IM* ONE (09:00)
--- NOTE | 2017-02-06 10:26 | CONS ---
DATE OF ADMISSION: 02/04/2017 DATE OF CONSULTATION: 02/06/2017 TYPE OF CONSULTATION: Podiatry REFERRING PHYSICIAN: Dr. San REASON FOR CONSULTATION: Bilateral foot ulcerations. HISTORY OF PRESENT ILLNESS: This is a 76-year-old female who has had a new injury to the left posterior heel from stepping on a foreign object. She also has chronic ulcerations to the right 3rd toe and left hallux. She is also complaining of pain to the left great toe with presence of pus subungually. The patient has been seen by ID, initiated on vancomycin and ceftriaxone, also seen by vascular. There is a suspicion for chronic osteomyelitis given radiographic changes of erosion of the distal tuft of the right 3rd toe. PAST MEDICAL HISTORY: 1. Peripheral arterial disease, history of vascular intervention. 2. Diabetes with neuropathy. 3. Hypertension. 4. Hyperlipidemia. The patient had been on Keflex without improvement. SOCIAL HISTORY: Denies any smoking, drinking, or alcohol use. ALLERGIES: NONE. PHYSICAL EXAMINATION: VITAL SIGNS: Temperature 98.2, pulse is 88, respiratory rate 20, blood pressure is 108/63, pulse ox is 96 on room air. GENERAL: The patient alert, oriented, no acute distress. The patient is overweight. LUNGS: Regular respirations. EXTREMITIES: Patient's skin is warm bilateral feet via 1+ DP pulse bilaterally. There is dried sanguineous exudate to the left great toe. There is tenderness with palpation, presence of onychomycotic changes. Right foot with ulceration distal third toe with dried sanguineous exudate, pain with palpation. There is purulent drainage from the right great toe subungually. There is a severely dystrophic nail, pain with dorsal palpation. There is a 1 cm ulceration posterior aspect of the right heel with necrosis of skin. LABORATORIES: WBC 4.1, hemoglobin 11, hematocrit 32.4, platelets 227. Sed rate is 55. Glucose 151. IMAGING: X-rays, right foot, chronic resorption distal phalanx, third toe, unchanged. Hallux valgus with DJD of the metatarsophalangeal joint. ASSESSMENT: 1. Subungual ulceration left and right great toe. 2. Right third toe chronic ulceration, diabetic, with radiographic changes of bone erosion. 3. Diabetic foot ulceration to the right posterior heel. 4. Diabetes type 2 with neuropathy. 5. Peripheral arterial disease. 6. Urinary tract infection. PLAN: Patient seen and evaluated, discussed debridement of ulcerations which would allow for exploration of the wounds. If there is bone exposure, may require further surgical debridement or partial amputation of toes. The patient was initiated on vancomycin and ceftriaxone. Discussed plan of care with vascular and no surgical revascularization planned at this time, obtained consent. Nursing orders given. Dictated By: JOVANNA VILCHIS DPM RB/LEI Conf#: [id number] DID#: [id number] CC: RADHA DAWN MD; FLORINDA SAN MD;*EndCC* [facility]
[2017-02-06] MEDS: SODIUM HYPOCHLORITE 1/40% 1L IRRIG IRR SCH ×2 (12:38→22:17)
[2017-02-06 14:04] VITALS: BP 108/58; RESP 20
--- NOTE | 2017-02-06 14:37 | PN ---
Date/Time of Note Date/Time of Note DATE: 02/06/17 TIME: 14:35 Assessment/Plan VTE Prophylaxis VTE Prophylaxis Intervention: SCD's Lines/Catheters IV [facility] Saline Lock Assessment/Plan Chief Complaint/Hosp Course Assessment/Plan -Right third toe ulcer, Dr. Raya is following in podiatry consultation, Dr. San in vascular surgery consultation, is following in infection disease consultation. -Osteomyelitis of toe of right foot -Urinary tract infection -Severe peripheral arterial disease -Hypertension -Hyperlipidemia -Hyperglycemia in patient with diabetes mellitus type 2. Will obtain hemoglobin A1c start Lantus and pre-meal NovoLog -Obesity Further recommendations based on clinical course. Plan of care discussed with Dr. Garcia Problems: Exam/Review of Systems Vital Signs Vitals Vital Signs Date Time Temp Pulse Resp B/P Pulse Ox O2 Delivery O2 Flow Rate FiO2 02/06/17 14:04 98.0 94 20 108/58 97 02/04/17 19:21 Room Air Intake and Output 02/05/17 02/05/17 02/06/17 15:00 23:00 07:00 Intake Total 1120 ml 310 ml Output Total 1000 ml Balance 120 ml 310 ml Exam Constitutional: alert, oriented Respiratory: normal air movement Cardiovascular: nl pulses Gastrointestinal: non-tender, soft Musculoskeletal: nl extremities to inspection Extremities: normal pulses, other (Right third toe wound) Results Result Diagram: 02/06/17 0537 02/06/17 0537 Results 24 hrs Laboratory Tests Test 02/05/17 17:23 02/05/17 20:40 02/06/17 05:37 02/06/17 07:49 Bedside Glucose 201 151 171 White Blood Count 4.1 L Red Blood Count 3.74 L Hemoglobin 11.0 L Hematocrit 32.4 L Mean Corpuscular Volume 86.6 Mean Corpuscular Hemoglobin 29.4 Mean Corpuscular Hemoglobin Concent 34.0 Red Cell Distribution Width 11.9 Platelet Count 227 Mean Platelet Volume 10.1 Neutrophils % 57.9 Lymphocytes % 30.8 Monocytes % 8.6 Eosinophils % 1.2 Basophils % 1.0 Nucleated Red Blood Cells % 0.0 Neutrophils # 2.4 Lymphocytes # 1.3 Monocytes # 0.4 Eosinophils # 0.1 Basophils # 0.0 Nucleated Red Blood Cells # 0.0 Sodium Level 139 Potassium Level 4.5 Chloride Level 102 Carbon Dioxide Level 30 Anion Gap 12 Blood Urea Nitrogen 11 Creatinine 0.85 Glucose Level 150 # Calcium Level 9.2 Triglycerides Level 147 Cholesterol Level 148 LDL Cholesterol, Calculated 88 HDL Cholesterol 31 L Cholesterol/HDL Ratio 4.7 Test 02/06/17 11:46 Bedside Glucose 201 Medications Medications Current Medications Ondansetron HCl (Zofran Inj) 4 mg Q6H PRN IV NAUSEA AND/OR VOMITING Last administered on 02/04/17 19:41; Admin Dose 4 MG; Start 02/04/17 at 19:30 Acetaminophen (Tylenol Tab) 650 mg Q6H PRN PO PAIN LEVEL 1-3 OR FEVER; Start 02/04/17 at 19:30 Morphine Sulfate (morphine) 2 mg Q4H PRN IV SEVERE PAIN LEVEL 7-10 Last administered on 02/04/17 19:41; Admin Dose 2 MG; Start 02/04/17 at 19:30 Famotidine (Pepcid Iv) 20 mg Q12 IV Last administered on 02/06/17 08:19; Admin Dose 20 MG; Start 02/04/17 at 21:00 Enoxaparin Sodium 30 mg 30 mg DAILY SC Last administered on 02/06/17 08:22; Admin Dose 30 MG; Start 02/05/17 at 09:00 Ceftriaxone Sodium (Rocephin) 50 ml @ 100 mls/hr DAILY IVPB Last administered on 02/06/17 08:30; Admin Dose 100 MLS/HR; Start 02/05/17 at 15:00 Aspirin (Halfprin) 81 mg DAILY PO Last administered on 02/06/17 08:19; Admin Dose 81 MG; Start 02/05/17 at 09:00 Atorvastatin Calcium (Lipitor) 40 mg HS PO Last administered on 02/05/17 20: 43; Admin Dose 40 MG; Start 02/05/17 at 21:00 Clopidogrel Bisulfate (plaVIX) 75 mg DAILY PO Last administered on 02/06/17 08:19; Admin Dose 75 MG; Start 02/05/17 at 09:00 Tramadol HCl (Ultram) 50 mg Q6H PRN PO PAIN LEVEL 1-5 Last administered on 15:03; Admin Dose 50 MG; Start 02/04/17 at 22:30 Clonidine (Catapres) 0.1 mg Q6H PRN PO ELEVATED BLOOD PRESSURE; Start at 23:00 Miscellaneous Information 1 ea NOTE XX ; Start 02/04/17 at 23:00 Glucose (Glutose) 15 gm Q15M PRN PO DECREASED GLUCOSE; Start 02/04/17 at 23:00 Glucose (Glutose) 22.5 gm Q15M PRN PO DECREASED GLUCOSE; Start 02/04/17 at 23: 00 Dextrose (D50w Syringe) 25 ml Q15M PRN IV DECREASED GLUCOSE; Start 02/04/17 at 23:00 Dextrose (D50w Syringe) 50 ml Q15M PRN IV DECREASED GLUCOSE; Start 02/04/17 at 23:00 Glucagon (Glucagen) 1 mg Q15M PRN IM DECREASED GLUCOSE; Start 02/04/17 at 23: 00 Glucose (Glutose) 15 gm Q15M PRN BUCCAL DECREASED GLUCOSE; Start 02/04/17 at 23:00 Diagnostic Test (Pha) (Accu-Chek) 1 ea 02 XX ; Start 02/06/17 at 02:00 Insulin Glargine (Lantus) 17 unit DAILY@20 SC Last administered on 02/05/17 20:42; Admin Dose 17 UNIT; Start 02/05/17 at 20:00 Fluconazole (Diflucan) 200 mg DAILY PO Last administered on 02/06/17 08:19; Admin Dose 200 MG; Start 02/06/17 at 09:00 Sodium Hypochlorite (Dakin'S (Dilute 1/40%)) 1 applic BID IRR Last administered on 02/06/17 12:38; Admin Dose 1 APPLIC; Start 02/06/17 at 09:00 Lidocaine (Lmx 4% Plus) 1 applic PRN PRN TOP W/ DRESSING CHANGES PRN PAIN; Start 02/06/17 at 08:00 Gentamicin Sulfate 1 applic 1 applic TID TOP Last administered on 02/06/17 12 :45; Admin Dose 1 APPLIC; Start 02/06/17 at 09:00 Vancomycin HCl (Vancocin) 250 ml @ 125 mls/hr Q12H IVPB ; Start 02/06/17 at 17 :00 Miscellaneous Information (*Rx Drug Level Order Reminder*) VANCO TROUGH @ 1, 600 ON ... ONCE ONCE XX ; Start 02/07/17 at 16:00; Stop 02/07/17 at 16:01 JOSE RANGEL Feb 06, 2017 14:37
[2017-02-06] MEDS: traMADol 50 MG TAB PO PRN (15:17)
[2017-02-06] MEDS: VANCOMYCIN 1 GM in NS 250 ML IVPB SCH (17:24)
--- NOTE | 2017-02-06 17:25 | PN ---
DATE: 02/06/2017 SUBJECTIVE: The patient is alert, feels good, looks comfortable. No fevers. LABORATORY: WBC 4.1, no shift, no bands. BUN 11, creatinine 0.85. ANTIMICROBIALS: The patient is on vancomycin and Rocephin. PHYSICAL EXAMINATION: GENERAL: Well-developed, elderly, woman who is in no distress. HEENT: Head atraumatic, normocephalic. Sclerae anicteric. Buccal mucosa pink. NECK: Supple. CHEST: Rise symmetrical. Breath sounds clear. HEART: S1, S2. ABDOMEN: Soft, bowel tones present. EXTREMITIES: With right third toe ulceration. ASSESSMENT: 1. Right third toe chronic ulceration with evidence of bone erosion per x-ray. 2. Multiple decubitus. 3. Diabetes. 4. Peripheral arterial disease. 5. Positive urinalysis, no culture available. PLAN: The patient remains stable. She is being seen by Dr. Lee and vascular team. Continue pr esent care, antibiotics. Dictated By: JOSELITO AGARWAL PHOTO CHECKER AND ASSEMBLER for KT BROWNING MD NI/NTS Conf#: [id number] DID#: [id number] CC: RADHA DAWN MD;*EndCC*
[2017-02-06 19:58] VITALS: BP 138/60; RESP 20
[2017-02-06] MEDS: ATORVASTATIN 40 MG TAB PO SCH (21:00)
[2017-02-06] MEDS: INSULIN GLARGINE [LANtus] 3 ML PEN SC SCH (22:17)
[2017-02-07] MEDS: ACCU-CHEK XX SCH (02:00)
[2017-02-07 02:39] VITALS: BP 111/55; RESP 19
[2017-02-07] MEDS: traMADol 50 MG TAB PO PRN (05:46)
[2017-02-07] MEDS: VANCOMYCIN 1 GM in NS 250 ML IVPB SCH ×2 (05:47→17:43)
[2017-02-07 07:49] VITALS: BP 138/62; RESP 18
[2017-02-07] MEDS: LINAGLIPTIN 5 MG TABLET PO SCH (08:19)
[2017-02-07] MEDS: FLUCONAZOLE 200 MG TAB PO SCH (08:19)
[2017-02-07] MEDS: metFORMIN 500 MG TAB PO SCH ×2 (08:19→17:42)
[2017-02-07] MEDS: FAMOTIDINE 20 MG INJ IV SCH ×2 (08:19→20:23)
[2017-02-07] MEDS: CLOPIDOGREL 75 MG TAB PO SCH (08:19)
[2017-02-07] MEDS: CEFTRIAXONE 1 GM/50 ML (PMX) 50 ML IVPB SCH (08:19)
[2017-02-07] MEDS: GENTAMICIN 0.1% 15 GM OINT TOP SCH ×3 (08:19→20:24)
[2017-02-07] MEDS: ASPIRIN (EC) 81 MG TAB PO SCH (08:19)
[2017-02-07] MEDS: ENOXAPARIN 30 MG/0.3 ML SYG SC SCH ×2 (08:20→08:33)
[2017-02-07] MEDS: INSULIN ASPART [NOVOLOG] 3 ML PEN SC SCH ×7 (08:21→20:21)
[2017-02-07] MEDS: SODIUM HYPOCHLORITE 1/40% 1L IRRIG IRR SCH ×2 (08:22→20:23)
[2017-02-07] MEDS: ONDANSETRON 4 MG INJ IV PRN (11:37)
[2017-02-07 14:00] VITALS: BP 121/75; RESP 18
--- NOTE | 2017-02-07 17:20 | PN ---
Date/Time of Note Date/Time of Note DATE: 02/07/17 TIME: 17:17 Assessment/Plan VTE Prophylaxis VTE Prophylaxis Intervention: SCD's Lines/Catheters IV Catheter Type (from Nrsg): Saline Lock Assessment/Plan Chief Complaint/Hosp Course Patient blood sugar is better controlled, vascular interventions planned, possible debridement by case monitor. Assessment/Plan -Right third toe ulcer, Dr. Raya is following in podiatry consultation, Dr. San in vascular surgery consultation, is following in infection disease consultation. -Osteomyelitis of toe of right foot -Urinary tract infection -Severe peripheral arterial disease -Hypertension -Hyperlipidemia -Hyperglycemia in patient with diabetes mellitus type 2. hemoglobin A1c is 10.8. Continue Lantus and pre-meal NovoLog. Dr. Cornejo is asked to see patient in endocrinology consultation. -Obesity Further recommendations based on clinical course. Plan of care discussed with Dr. Garcia Problems: Exam/Review of Systems Vital Signs Vitals Vital Signs Date Time Temp Pulse Resp B/P Pulse Ox O2 Delivery O2 Flow Rate FiO2 02/07/17 14:00 97.9 50 18 121/75 99 02/04/17 19:21 Room Air Intake and Output 02/06/17 02/06/17 02/07/17 15:00 23:00 07:00 Intake Total 200 ml 1290 ml 250 ml Output Total 1400 ml Balance 200 ml -110 ml 250 ml Exam Constitutional: alert, oriented Respiratory: normal air movement Cardiovascular: nl pulses Gastrointestinal: non-tender, soft Musculoskeletal: nl extremities to inspection Extremities: normal pulses, other (Right third toe wound) Results Result Diagram: 02/06/17 0537 02/06/17 0537 Results 24 hrs Laboratory Tests Test 02/06/17 22:15 02/07/17 08:05 02/07/17 12:42 02/07/17 16:03 Bedside Glucose 148 170 149 Vancomycin Level Trough 8.8 L Medications Medications Current Medications Ondansetron HCl (Zofran Inj) 4 mg Q6H PRN IV NAUSEA AND/OR VOMITING Last administered on 02/07/17t 11:37; Admin Dose 4 MG; Start 02/04/17 at 19:30 Acetaminophen (Tylenol Tab) 650 mg Q6H PRN PO PAIN LEVEL 1-3 OR FEVER; Start 02/04/17 at 19:30 Morphine Sulfate (morphine) 2 mg Q4H PRN IV SEVERE PAIN LEVEL 7-10 Last administered on 02/04/17 19:41; Admin Dose 2 MG; Start 02/04/17 at 19:30 Famotidine (Pepcid Iv) 20 mg Q12 IV Last administered on 02/07/17 08:19; Admin Dose 20 MG; Start 02/04/17 at 21:00 Enoxaparin Sodium 30 mg 30 mg DAILY SC Last administered on 02/06/17 08:22; Admin Dose 30 MG; Start 02/05/17 at 09:00 Ceftriaxone Sodium (Rocephin) 50 ml @ 100 mls/hr DAILY IVPB Last administered on 02/07/17 08:19; Admin Dose 100 MLS/HR; Start 02/05/17 at 15:00 Aspirin (Halfprin) 81 mg DAILY PO Last administered on 02/07/17 08:19; Admin Dose 81 MG; Start 02/05/17 at 09:00 Atorvastatin Calcium (Lipitor) 40 mg HS PO Last administered on 02/05/17 20: 43; Admin Dose 40 MG; Start 02/05/17 at 21:00 Clopidogrel Bisulfate (plaVIX) 75 mg DAILY PO Last administered on 02/07/17 08:19; Admin Dose 75 MG; Start 02/05/17 at 09:00 Tramadol HCl (Ultram) 50 mg Q6H PRN PO PAIN LEVEL 1-5 Last administered on 05:46; Admin Dose 50 MG; Start 02/04/17 at 22:30 Clonidine (Catapres) 0.1 mg Q6H PRN PO ELEVATED BLOOD PRESSURE; Start at 23:00 Miscellaneous Information 1 ea NOTE XX ; Start 02/04/17 at 23:00 Glucose (Glutose) 15 gm Q15M PRN PO DECREASED GLUCOSE; Start 02/04/17 at 23:00 Glucose (Glutose) 22.5 gm Q15M PRN PO DECREASED GLUCOSE; Start 02/04/17 at 23: 00 Dextrose (D50w Syringe) 25 ml Q15M PRN IV DECREASED GLUCOSE; Start 02/04/17 at 23:00 Dextrose (D50w Syringe) 50 ml Q15M PRN IV DECREASED GLUCOSE; Start 02/04/17 at 23:00 Glucagon (Glucagen) 1 mg Q15M PRN IM DECREASED GLUCOSE; Start 02/04/17 at 23: 00 Glucose (Glutose) 15 gm Q15M PRN BUCCAL DECREASED GLUCOSE; Start 02/04/17 at 23:00 Diagnostic Test (Pha) (Accu-Chek) 1 ea 02 XX ; Start 02/06/17 at 02:00 Insulin Glargine (Lantus) 17 unit DAILY@20 SC Last administered on 02/06/17 22:17; Admin Dose 17 UNIT; Start 02/05/17 at 20:00 Fluconazole (Diflucan) 200 mg DAILY PO Last administered on 02/07/17 08:19; Admin Dose 200 MG; Start 02/06/17 at 09:00 Sodium Hypochlorite (Dakin'S (Dilute 1/40%)) 1 applic BID IRR Last administered on 02/07/17 08:22; Admin Dose 1 APPLIC; Start 02/06/17 at 09:00 Lidocaine (Lmx 4% Plus) 1 applic PRN PRN TOP W/ DRESSING CHANGES PRN PAIN; Start 02/06/17 at 08:00 Gentamicin Sulfate 1 applic 1 applic TID TOP Last administered on 02/07/17 13 :03; Admin Dose 1 APPLIC; Start 02/06/17 at 09:00 Vancomycin HCl (Vancocin) 250 ml @ 125 mls/hr Q12H IVPB Last administered on 02/07/17 05:47; Admin Dose 125 MLS/HR; Start 02/06/17 at 17:00 JOSE RANGEL Feb 07, 2017 17:20
--- NOTE | 2017-02-07 17:33 | CONS ---
Date/Time of Note Date/Time of Note DATE: 02/07/17 TIME: 17:32 Consult Date/Type/Reason Admit Date/Time Feb 04, 2017 at 17:34 Initial Consult Date 02/05/17 Type of Consultation: Int and Endovascular Cardiolog Objective Vital Signs Date Time Temp Pulse Resp B/P Pulse Ox O2 Delivery O2 Flow Rate FiO2 02/07/17 14:00 97.9 50 18 121/75 99 02/04/17 19:21 Room Air Intake and Output 02/06/17 02/06/17 02/07/17 15:00 23:00 07:00 Intake Total 200 ml 1290 ml 250 ml Output Total 1400 ml Balance 200 ml -110 ml 250 ml Results/Medications Result Diagram: 02/06/17 0537 02/06/17 0537 Results 24 hrs Laboratory Tests Test 02/06/17 22:15 02/07/17 08:05 02/07/17 12:42 02/07/17 16:03 Bedside Glucose 148 170 149 Vancomycin Level Trough 8.8 L Medications Current Medications Ondansetron HCl (Zofran Inj) 4 mg Q6H PRN IV NAUSEA AND/OR VOMITING Last administered on 02/07/17 11:37; Admin Dose 4 MG; Start 02/04/17 at 19:30 Acetaminophen (Tylenol Tab) 650 mg Q6H PRN PO PAIN LEVEL 1-3 OR FEVER; Start 02/04/17 at 19:30 Morphine Sulfate (morphine) 2 mg Q4H PRN IV SEVERE PAIN LEVEL 7-10 Last administered on 02/04/17 19:41; Admin Dose 2 MG; Start 02/04/17 at 19:30 Famotidine (Pepcid Iv) 20 mg Q12 IV Last administered on 02/07/17 08:19; Admin Dose 20 MG; Start 02/04/17 at 21:00 Enoxaparin Sodium 30 mg 30 mg DAILY SC Last administered on 02/06/17 08:22; Admin Dose 30 MG; Start 02/05/17 at 09:00 Ceftriaxone Sodium (Rocephin) 50 ml @ 100 mls/hr DAILY IVPB Last administered on 02/07/17 08:19; Admin Dose 100 MLS/HR; Start 02/05/17 at 15:00 Aspirin (Halfprin) 81 mg DAILY PO Last administered on 02/07/17 08:19; Admin Dose 81 MG; Start 02/05/17 at 09:00 Atorvastatin Calcium (Lipitor) 40 mg HS PO Last administered on 02/05/17 20: 43; Admin Dose 40 MG; Start 02/05/17 at 21:00 Clopidogrel Bisulfate (plaVIX) 75 mg DAILY PO Last administered on 02/07/17 08:19; Admin Dose 75 MG; Start 02/05/17 at 09:00 Tramadol HCl (Ultram) 50 mg Q6H PRN PO PAIN LEVEL 1-5 Last administered on 05:46; Admin Dose 50 MG; Start 02/04/17 at 22:30 Clonidine (Catapres) 0.1 mg Q6H PRN PO ELEVATED BLOOD PRESSURE; Start at 23:00 Miscellaneous Information 1 ea NOTE XX ; Start 02/04/17 at 23:00 Glucose (Glutose) 15 gm Q15M PRN PO DECREASED GLUCOSE; Start 02/04/17 at 23:00 Glucose (Glutose) 22.5 gm Q15M PRN PO DECREASED GLUCOSE; Start 02/04/17 at 23: 00 Dextrose (D50w Syringe) 25 ml Q15M PRN IV DECREASED GLUCOSE; Start 02/04/17 at 23:00 Dextrose (D50w Syringe) 50 ml Q15M PRN IV DECREASED GLUCOSE; Start 02/04/17 at 23:00 Glucagon (Glucagen) 1 mg Q15M PRN IM DECREASED GLUCOSE; Start 02/04/17 at 23: 00 Glucose (Glutose) 15 gm Q15M PRN BUCCAL DECREASED GLUCOSE; Start 02/04/17 at 23:00 Diagnostic Test (Pha) (Accu-Chek) 1 ea 02 XX ; Start 02/06/17 at 02:00 Insulin Glargine (Lantus) 17 unit DAILY@20 SC Last administered on 02/06/17 22:17; Admin Dose 17 UNIT; Start 02/05/17 at 20:00 Fluconazole (Diflucan) 200 mg DAILY PO Last administered on 02/07/17 08:19; Admin Dose 200 MG; Start 02/06/17 at 09:00 Sodium Hypochlorite (Dakin'S (Dilute 1/40%)) 1 applic BID IRR Last administered on 12/13/17at 08:22; Admin Dose 1 APPLIC; Start 02/06/17 at 09:00 Lidocaine (Lmx 4% Plus) 1 applic PRN PRN TOP W/ DRESSING CHANGES PRN PAIN; Start 02/06/17 at 08:00 Gentamicin Sulfate 1 applic 1 applic TID TOP Last administered on 02/07/17 13 :03; Admin Dose 1 APPLIC; Start 02/06/17 at 09:00 Vancomycin HCl (Vancocin) 250 ml @ 125 mls/hr Q12H IVPB Last administered on 02/07/17 05:47; Admin Dose 125 MLS/HR; Start 02/06/17 at 17:00 Assessment/Plan Problems: (1) Peripheral vascular disease (2) Non-pressure chronic ulcer of other part of right foot limited to breakdown of skin (3) Non-pressure chronic ulcer of other part of left foot with fat layer exposed (4) PAD (peripheral artery disease) (5) Urinary tract infection (6) Hyperglycemia (7) Osteomyelitis of toe of right foot (8) E. coli UTI (9) Osteomyelitis due to type 2 diabetes mellitus Additional Assessment/Plan Pt under going debridement,. if needed amputation pt is medically stable to go LVEF is normal no CP cardaic regalado stable for surgery vascular regalado she has good runoff with mod diffuse disease. there is no need for angio before procedure continue abx. FLORINDA GOMEZ MD Feb 07, 2017 17:33
--- NOTE | 2017-02-07 18:15 | CONS ---
Date/Time of Note Date/Time of Note DATE: 02/07/17 TIME: 18:09 Assessment/Plan Assessment/Plan Problems: (1) Type 2 diabetes mellitus with foot ulcer Status: Chronic Comment: Good glycemic control on current insulin, metformin, and linagliptin doses. Would continue. Pt. must have DM education to continue insulin on d/c. Will follow with you and adjust insulin if necessary. Consultation Date/Type/Reason Admit Date/Time Feb 04, 2017 at 17:34 Date of Consultation: Feb 07, 2017 Type of Consultation: Endocrinology Reason for Consultation T2DM management Referring Provider: JOSE RANEGL Hx of Present Illness 76 y/o H F w/ h/o T2DM w/ neuropathy and recurrent DFU being followed by podiatry. Went to [place] for acute worsening of ulcer and got Rx for Keflex but was not improving. 3 days ago came to [facility] for same. Glucose > 400 mg/dL. A1c 10.8%. Primary team initiated insulin orders per suggested doses and glucose levels have normalized. Endo consulted for ongoing management Constitutional: improved, no complaints Eyes: no complaints ENT: no complaints Respiratory: no complaints Cardiovascular: no complaints Gastrointestinal: no complaints Genitourinary: no complaints Musculoskeletal: no complaints Neurologic: no complaints Past Medical History Medical History: diabetes, GERD, high cholesterol, hypertension, other ( Peripheral arterial disease) Past Surgical History Past Surgical Hx: other (JOAQUIN, c-sect, T&A, back surgery) Family History Significant Family History: other (seizure d/o in mother) Social History b. 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, single, 7 children, 5 living Alcohol Use: none Smoking Status: Never smoker Drug Use: none Exam/Review of Systems Vital Signs Vitals Vital Signs Date Time Temp Pulse Resp B/P Pulse Ox O2 Delivery O2 Flow Rate FiO2 02/07/17 14:00 97.9 50 18 121/75 99 02/04/17 19:21 Room Air Intake and Output 02/06/17 02/06/17 02/07/17 15:00 23:00 07:00 Intake Total 200 ml 1290 ml 250 ml Output Total 1400 ml Balance 200 ml -110 ml 250 ml Exam Constitutional: alert, obese, oriented Psych: nl mood/affect, no complaints Eyes: EOMI, PERRL, nl conjunctiva, nl lids, nl sclera ENMT: mucosa pink and moist, nl external ears & nose Neck: non-tender, supple, No bruits, No masses, No thyromegaly Respiratory: clear to auscultation, normal air movement Cardiovascular: nl pulses, regular rate and rhythm, No edema, No murmurs/extra sounds, No rub Gastrointestinal: bowel sounds, nl liver, spleen, non-tender, soft, No mass, No rebound or guarding Musculoskeletal: No nl extremities to inspection (R 4th toe, L great toe w/ distal ulcerations) Extremities: No clubbing, No cyanosis, No edema 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, nl mental status, nl speech, nl strength Additional Comments Bedside Glucose - 72 Hours Test 02/04/17 18:25 02/04/17 22:25 02/04/17 23:53 02/05/17 02:13 Bedside Glucose 375mg/dL (70-220) H 268mg/dL (70-220) H 264mg/dL (70-220) H 243mg/dL (70-220) H Test 02/05/17 07:44 02/05/17 11:33 02/05/17 17:23 02/05/17 20:40 Bedside Glucose 251mg/dL (70-220) H 255mg/dL (70-220) H 201mg/dL (70-220) 151mg/dL (70-220) Test 02/06/17 07:49 02/06/17 11:46 02/06/17 17:16 02/06/17 22:15 Bedside Glucose 171mg/dL (70-220) 201mg/dL (70-220) 135mg/dL (70-220) 148mg/dL (70-220) Test 02/07/17 08:05 02/07/17 12:42 02/07/17 17:38 Bedside Glucose 170mg/dL (70-220) 149mg/dL (70-220) 90mg/dL (70-220) Results Result Diagram: 02/06/17 0537 02/06/17 0537 Results 24 hrs Laboratory Tests Test 02/06/17 22:15 02/07/17 08:05 02/07/17 12:42 02/07/17 16:03 Bedside Glucose 148 170 149 Vancomycin Level Trough 8.8 L Test 02/07/17 17:38 Bedside Glucose 90 Medications Medications Current Medications Ondansetron HCl (Zofran Inj) 4 mg Q6H PRN IV NAUSEA AND/OR VOMITING Last administered on 02/07/17 11:37; Admin Dose 4 MG; Start 02/04/17 at 19:30 Acetaminophen (Tylenol Tab) 650 mg Q6H PRN PO PAIN LEVEL 1-3 OR FEVER; Start 02/04/17 at 19:30 Morphine Sulfate (morphine) 2 mg Q4H PRN IV SEVERE PAIN LEVEL 7-10 Last administered on 02/04/17 19:41; Admin Dose 2 MG; Start 02/04/17 at 19:30 Famotidine (Pepcid Iv) 20 mg Q12 IV Last administered on 02/07/17 08:19; Admin Dose 20 MG; Start 02/04/17 at 21:00 Enoxaparin Sodium 30 mg 30 mg DAILY SC Last administered on 02/06/17 08:22; Admin Dose 30 MG; Start 02/05/17 at 09:00 Ceftriaxone Sodium (Rocephin) 50 ml @ 100 mls/hr DAILY IVPB Last administered on 02/07/17 08:19; Admin Dose 100 MLS/HR; Start 02/05/17 at 15:00 Aspirin (Halfprin) 81 mg DAILY PO Last administered on 02/07/17 08:19; Admin Dose 81 MG; Start 02/05/17 at 09:00 Atorvastatin Calcium (Lipitor) 40 mg HS PO Last administered on 02/05/17 20: 43; Admin Dose 40 MG; Start 02/05/17 at 21:00 Clopidogrel Bisulfate (plaVIX) 75 mg DAILY PO Last administered on 02/07/17 08:19; Admin Dose 75 MG; Start 02/05/17 at 09:00 Tramadol HCl (Ultram) 50 mg Q6H PRN PO PAIN LEVEL 1-5 Last administered on 05:46; Admin Dose 50 MG; Start 02/04/17 at 22:30 Clonidine (Catapres) 0.1 mg Q6H PRN PO ELEVATED BLOOD PRESSURE; Start at 23:00 Miscellaneous Information 1 ea NOTE XX ; Start 02/04/17 at 23:00 Glucose (Glutose) 15 gm Q15M PRN PO DECREASED GLUCOSE; Start 02/04/17 at 23:00 Glucose (Glutose) 22.5 gm Q15M PRN PO DECREASED GLUCOSE; Start 02/04/17 at 23: 00 Dextrose (D50w Syringe) 25 ml Q15M PRN IV DECREASED GLUCOSE; Start 02/04/17 at 23:00 Dextrose (D50w Syringe) 50 ml Q15M PRN IV DECREASED GLUCOSE; Start 02/04/17 at 23:00 Glucagon (Glucagen) 1 mg Q15M PRN IM DECREASED GLUCOSE; Start 02/04/17 at 23: 00 Glucose (Glutose) 15 gm Q15M PRN BUCCAL DECREASED GLUCOSE; Start 02/04/17 at 23:00 Diagnostic Test (Pha) (Accu-Chek) 1 ea 02 XX ; Start 02/06/17 at 02:00 Insulin Glargine (Lantus) 17 unit DAILY@20 SC Last administered on 02/06/17 22:17; Admin Dose 17 UNIT; Start 02/05/17 at 20:00 Fluconazole (Diflucan) 200 mg DAILY PO Last administered on 02/07/17 08:19; Admin Dose 200 MG; Start 02/06/17 at 09:00 Sodium Hypochlorite (Dakin'S (Dilute 1/40%)) 1 applic BID IRR Last administered on 02/07/17 08:22; Admin Dose 1 APPLIC; Start 02/06/17 at 09:00 Lidocaine (Lmx 4% Plus) 1 applic PRN PRN TOP W/ DRESSING CHANGES PRN PAIN; Start 02/06/17 at 08:00 Gentamicin Sulfate 1 applic 1 applic TID TOP Last administered on 02/07/17 13 :03; Admin Dose 1 APPLIC; Start 02/06/17 at 09:00 Vancomycin HCl (Vancocin) 250 ml @ 125 mls/hr Q12H IVPB Last administered on 02/07/17 17:43; Admin Dose 125 MLS/HR; Start 02/06/17 at 17:00 ARTURO HANCOCK MD Feb 07, 2017 18:15
--- NOTE | 2017-02-07 19:58 | CONS ---
Date/Time of Note Date/Time of Note DATE: 02/07/17 TIME: 19:56 Assessment/Plan Assessment/Plan Chief Complaint/Hosp Course SUBJECTIVE: The patient is alert, feels good, looks comfortable. No fevers. ANTIMICROBIALS: The patient is on vancomycin and Rocephin. PHYSICAL EXAMINATION: GENERAL: Well-developed, elderly, woman who is in no distress. HEENT: Head atraumatic, normocephalic. Sclerae anicteric. Buccal mucosa pink. NECK: Supple. CHEST: Rise symmetrical. Breath sounds clear. HEART: S1, S2. ABDOMEN: Soft, bowel tones present. EXTREMITIES: With right third toe ulceration. ASSESSMENT: 1. Right third toe chronic ulceration with evidence of bone erosion per x-ray. 2. Multiple decubitus. 3. Diabetes. 4. Peripheral arterial disease. 5. Positive urinalysis, no culture available. PLAN: The patient remains stable. Vascular rec-s noted, continue abx, management per podiatry [facility] staff Problems: Consultation Date/Type/Reason Admit Date/Time Feb 04, 2017 at 17:34 Initial Consult Date 02/07/17 Type of Consultation: id Referring Provider: JOSE RANGEL Exam/Review of Systems Vital Signs Vitals Vital Signs Date Time Temp Pulse Resp B/P Pulse Ox O2 Delivery O2 Flow Rate FiO2 02/07/17 14:00 97.9 50 18 121/75 99 02/04/17 19:21 Room Air Intake and Output 02/06/17 02/06/17 02/07/17 15:00 23:00 07:00 Intake Total 200 ml 1290 ml 250 ml Output Total 1400 ml Balance 200 ml -110 ml 250 ml Results Result Diagram: 02/06/17 0537 02/06/17 0537 Results 24 hrs Laboratory Tests Test 02/06/17 22:15 02/07/17 08:05 02/07/17 12:42 02/07/17 16:03 Bedside Glucose 148 170 149 Vancomycin Level Trough 8.8 L Test 02/07/17 17:38 Bedside Glucose 90 Medications Medications Current Medications Ondansetron HCl (Zofran Inj) 4 mg Q6H PRN IV NAUSEA AND/OR VOMITING Last administered on 02/07/17t 11:37; Admin Dose 4 MG; Start 02/04/17 at 19:30 Acetaminophen (Tylenol Tab) 650 mg Q6H PRN PO PAIN LEVEL 1-3 OR FEVER; Start 02/04/17 at 19:30 Morphine Sulfate (morphine) 2 mg Q4H PRN IV SEVERE PAIN LEVEL 7-10 Last administered on 02/04/17 19:41; Admin Dose 2 MG; Start 02/04/17 at 19:30 Famotidine (Pepcid Iv) 20 mg Q12 IV Last administered on 02/07/17 08:19; Admin Dose 20 MG; Start 02/04/17 at 21:00 Enoxaparin Sodium 30 mg 30 mg DAILY SC Last administered on 02/06/17 08:22; Admin Dose 30 MG; Start 02/05/17 at 09:00 Ceftriaxone Sodium (Rocephin) 50 ml @ 100 mls/hr DAILY IVPB Last administered on 02/07/17 08:19; Admin Dose 100 MLS/HR; Start 02/05/17 at 15:00 Aspirin (Halfprin) 81 mg DAILY PO Last administered on 02/07/17 08:19; Admin Dose 81 MG; Start 02/05/17 at 09:00 Atorvastatin Calcium (Lipitor) 40 mg HS PO Last administered on 02/05/17 20: 43; Admin Dose 40 MG; Start 02/05/17 at 21:00 Clopidogrel Bisulfate (plaVIX) 75 mg DAILY PO Last administered on 02/07/17 08:19; Admin Dose 75 MG; Start 02/05/17 at 09:00 Tramadol HCl (Ultram) 50 mg Q6H PRN PO PAIN LEVEL 1-5 Last administered on 05:46; Admin Dose 50 MG; Start 02/04/17 at 22:30 Clonidine (Catapres) 0.1 mg Q6H PRN PO ELEVATED BLOOD PRESSURE; Start at 23:00 Miscellaneous Information 1 ea NOTE XX ; Start 02/04/17 at 23:00 Glucose (Glutose) 15 gm Q15M PRN PO DECREASED GLUCOSE; Start 02/04/17 at 23:00 Glucose (Glutose) 22.5 gm Q15M PRN PO DECREASED GLUCOSE; Start 02/04/17 at 23: 00 Dextrose (D50w Syringe) 25 ml Q15M PRN IV DECREASED GLUCOSE; Start 02/04/17 at 23:00 Dextrose (D50w Syringe) 50 ml Q15M PRN IV DECREASED GLUCOSE; Start 02/04/17 at 23:00 Glucagon (Glucagen) 1 mg Q15M PRN IM DECREASED GLUCOSE; Start 02/04/17 at 23: 00 Glucose (Glutose) 15 gm Q15M PRN BUCCAL DECREASED GLUCOSE; Start 02/04/17 at 23:00 Diagnostic Test (Pha) (Accu-Chek) 1 ea 02 XX ; Start 02/06/17 at 02:00 Insulin Glargine (Lantus) 17 unit DAILY@20 SC Last administered on 02/06/17 22:17; Admin Dose 17 UNIT; Start 02/05/17 at 20:00 Fluconazole (Diflucan) 200 mg DAILY PO Last administered on 02/07/17 08:19; Admin Dose 200 MG; Start 02/06/17 at 09:00 Sodium Hypochlorite (Dakin'S (Dilute 1/40%)) 1 applic BID IRR Last administered on 02/07/17 08:22; Admin Dose 1 APPLIC; Start 02/06/17 at 09:00 Lidocaine (Lmx 4% Plus) 1 applic PRN PRN TOP W/ DRESSING CHANGES PRN PAIN; Start 02/06/17 at 08:00 Gentamicin Sulfate 1 applic 1 applic TID TOP Last administered on 02/07/17 13 :03; Admin Dose 1 APPLIC; Start 02/06/17 at 09:00 Vancomycin HCl 250 ml @ 125 mls/hr Q12H IVPB Last administered on 02/07/17 17:43; Admin Dose 125 MLS/HR; Start 02/06/17 at 17:00; Stop 02/07/17 at 20:00 Vancomycin HCl/ Sodium Chloride (Vancocin/NS) 250 ml @ 83.333 mls/ hr Q12H IVPB ; Start 02/08/17 at 04:00 JOSELITO AGARWAL NP Feb 07, 2017 19:58
[2017-02-07] MEDS: INSULIN GLARGINE [LANtus] 3 ML PEN SC SCH (20:22)
[2017-02-07 20:23] VITALS: BP 130/62; RESP 18
[2017-02-07] MEDS: ATORVASTATIN 40 MG TAB PO SCH (20:23)
[2017-02-08] MEDS: ACCU-CHEK XX SCH (01:17)
[2017-02-08 02:51] VITALS: BP 101/51; RESP 18
[2017-02-08] MEDS: VANCOMYCIN 1.5 GM in SOD CHLORIDE 0.9% 250 ML IVPB SCH ×2 (03:35→15:28)
[2017-02-08] MEDS: traMADol 50 MG TAB PO PRN (03:40)
[2017-02-08 06:41] LABS: BASOPHILS % 0.2 % (0.0-2.0); HEMATOCRIT 30.6 % (37.0-47.0); HEMOGLOBIN 10.6 g/dl (12.0-16.0); LYMPHOCYTES # 0.9 10^3/ul (0.8-2.9); LYMPHOCYTES % 22.3 % (15.0-51.0); MEAN CORPUSCULAR HGB CONC 34.6 g/dl (32.0-37.0); MEAN CORPUSCULAR VOLUME 86.7 fl (82.0-101.0); MEAN PLATELET VOLUME 9.8 fl (7.4-10.4); MONOCYTE # 0.4 10^3/ul (0.3-0.9); MONOCYTES % 9.1 % (0.0-11.0); NEUTROPHIL # 2.8 10^3/ul (1.6-7.5); NEUTROPHILS % 66.9 % (39.0-77.0); PLATELET COUNT 191 10^3/UL (140-415); RED BLOOD COUNT 3.53 10^6/ul (4.20-5.40); RED CELL DISTRIBUTION WIDTH 12.1 % (11.5-14.5); WHITE BLOOD COUNT 4.2 10^3/ul (4.8-10.8)
[2017-02-08 07:20] VITALS: BP 111/55; RESP 18
[2017-02-08] MEDS: INSULIN ASPART [NOVOLOG] 3 ML PEN SC SCH ×7 (08:00→20:24)
[2017-02-08 08:16] LABS: CALCIUM 8.7 mg/dl (8.4-10.2); CREATININE 0.84 mg/dl (0.44-1.00); POTASSIUM 4.4 mmol/L (3.5-5.1)
[2017-02-08] MEDS: GENTAMICIN 0.1% 15 GM OINT TOP SCH ×2 (08:50→12:20)
[2017-02-08] MEDS: SODIUM HYPOCHLORITE 1/40% 1L IRRIG IRR SCH (08:50)
[2017-02-08] MEDS: FLUCONAZOLE 200 MG TAB PO SCH (08:51)
[2017-02-08] MEDS: CEFTRIAXONE 1 GM/50 ML (PMX) 50 ML IVPB SCH (08:51)
[2017-02-08] MEDS: FAMOTIDINE 20 MG INJ IV SCH ×2 (08:51→20:26)
[2017-02-08] MEDS: metFORMIN 500 MG TAB PO SCH ×2 (08:51→17:40)
[2017-02-08] MEDS: CLOPIDOGREL 75 MG TAB PO SCH (08:51)
[2017-02-08] MEDS: ASPIRIN (EC) 81 MG TAB PO SCH (08:52)
[2017-02-08] MEDS: LINAGLIPTIN 5 MG TABLET PO SCH (08:52)
[2017-02-08] MEDS: ENOXAPARIN 30 MG/0.3 ML SYG SC SCH (08:53)
[2017-02-08] MEDS ORDERED: LIDOCAINE 1% (MDV) 20 ML INJ ONE (13:39)
[2017-02-08 14:00] VITALS: BP 114/62; RESP 17
[2017-02-08] MEDS: morphine 2 MG INJ IV PRN (14:26)
--- NOTE | 2017-02-08 16:56 | SP ---
DATE OF PROCEDURE: 02/08/2017 PREOPERATIVE DIAGNOSES: 1. Bilateral diabetic foot ulcerations. 2. Ingrowing nail, left great toe with subungual hematoma ulceration. 3. Ulceration of the right 3rd toe. 4. Peripheral arterial disease, history of vascular intervention. 5. Diabetes with peripheral neuropathy. 6. Unstageable left heel ulceration. POSTOPERATIVE DIAGNOSES: 1. Bilateral diabetic foot ulcerations. 2. Ingrowing nail, left great toe with subungual hematoma ulceration. 3. Ulceration of the right 3rd toe. 4. Peripheral arterial disease, history of vascular intervention. 5. Diabetes with peripheral neuropathy. 6. Unstageable left heel ulceration. PROCEDURES PERFORMED: 1. Left foot avulsion of nail plate and excisional debridement of skin, subcutaneous tissue and bon e, distal phalanx, left great toe. 2. Excisional debridement of skin and subcutaneous tissue, right 3rd toe, less than 20 cm2. ANESTHESIA: Lidocaine 1% plain, 20 mL. PATHOLOGY: Wound culture, left great toe. HEMOSTASIS: Compression. ESTIMATED BLOOD LOSS: 5 to 10 mL. COMPLICATIONS: None. INDICATION FOR PROCEDURE: The patient has infected ulcerations, type 2 diabetic and had failed oral antibiotics. The patient seen by vascular. No surgery planned. Procedure recommended as attempts at limb salvage. Informed consent obtained. Discussed planned procedure, risks, benefits, potenti al complications. PROCEDURE IN DETAIL: The patient was seen at bedside and discussed plan in [place]. Local anesthes ia obtained using lidocaine 1% plain, and at this time, attention was directed to the left great toe . Avulsion of the nail plate obtained using a hemostat underneath the nail plate. There are gangre nous changes, unstageable, involving approximately 50% of the nail bed. Using a #15 blade and a pic kup, excision of this nonviable tissue was performed and ulceration involved distal phalanx. A port ion of the distal phalanx was excised. Wound cultures obtained and the wound was irrigated with Dak in's solution. At this time, attention was directed to the right 3rd toe and in a similar fashion, excisional debridement performed of the necrotic skin, subcutaneous tissue. Ulceration on the right 3rd toe measuring approximately 0.5 cm2, on the left great toe it was 1.5 x 1 cm. I applied gentam icin ointment. The patient tolerated the procedure well. POSTOPERATIVE PLAN: There is bleeding tissue following debridement. Given exposed bone, recommend intravenous antibiotics, discussed with ID and likely will need 6 weeks with a PICC line pending cul ture results. Continue daily wound cleansing and recommend outpatient followup, also discharge plan maura. Continue tight glycemic control. Dictated By: JOVANNA VILCHIS DPM RB/LEI Conf#: [id number] DID#: [id number] CC: CHRISTIE CABEZAS MD; RADHA DAWN MD;*EndCC*
--- NOTE | 2017-02-08 18:04 | CONS ---
Date/Time of Note Date/Time of Note DATE: 02/08/17 TIME: 18:01 Assessment/Plan Assessment/Plan Problems: (1) Type 2 diabetes mellitus with foot ulcer Status: Chronic Comment: Current insulin doses excellent. Pt. remains in glycemic goal range. Cont. current insulin doses. Consultation Date/Type/Reason Admit Date/Time Feb 04, 2017 at 17:34 Initial Consult Date 02/07/17 Type of Consultation: Endocrinology Reason for Consultation T2DM management Referring Provider: JOSE RANGEL 24 HR Interval Summary Free Text/Dictation s/p debridements B feet today Constitutional: improved, no complaints Detailed Summary Respiratory: no complaints Cardiovascular: no complaints Gastrointestinal: no complaints Genitourinary: no complaints Musculoskeletal: no complaints Neurologic: no complaints Exam/Review of Systems Vital Signs Vitals VS - Last 72 Hours, by Label Date Time Temp Pulse Resp B/P Pulse Ox O2 Delivery O2 Flow Rate FiO2 02/08/17 07:20 98.4 84 18 111/55 97 02/08/17 02:51 98.8 63 18 101/51 99 02/07/17 20:23 98.0 64 18 130/62 97 02/07/17 14:00 97.9 50 18 121/75 99 02/07/17 07:49 98.6 50 18 138/62 99 02/07/17 02:39 98.8 86 19 111/55 97 02/06/17 19:58 98.4 85 20 138/60 99 02/06/17 14:04 98.0 94 20 108/58 97 02/06/17 08:02 98.3 46 20 157/70 98 02/06/17 01:59 98.2 88 20 108/63 96 02/05/17 19:28 99.0 84 20 126/58 100 Vital Signs Date Time Temp Pulse Resp B/P Pulse Ox O2 Delivery O2 Flow Rate FiO2 02/08/17 07:20 98.4 84 18 111/55 97 02/04/17 19:21 Room Air Intake and Output 02/07/17 02/07/17 02/08/17 15:00 23:00 07:00 Intake Total 300 ml 1420 ml 570 ml Balance 300 ml 1420 ml 570 ml Exam Constitutional: alert, obese, oriented Respiratory: clear to auscultation, normal air movement Cardiovascular: nl pulses, regular rate and rhythm, No edema, No murmurs/extra sounds, No rub Gastrointestinal: bowel sounds, nl liver, spleen, non-tender, soft, No mass, No rebound or guarding Musculoskeletal: No nl extremities to inspection (B feet wrapped w/ bloody d/c) Extremities: No clubbing, No cyanosis, No edema Neurological: AXLE AND FRAME MECHANIC II-XII intact, nl mental status, nl speech, nl strength Additional Comments Bedside Glucose - 72 Hours Test 02/05/17 20:40 02/06/17 07:49 02/06/17 11:46 02/06/17 17:16 Bedside Glucose 151mg/dL (70-220) 171mg/dL (70-220) 201mg/dL (70-220) 135mg/dL (70-220) Test 02/06/17 22:15 02/07/17 08:05 02/07/17 12:42 02/07/17 17:38 Bedside Glucose 148mg/dL (70-220) 170mg/dL (70-220) 149mg/dL (70-220) 90mg/dL (70-220) Test 02/07/17 20:20 02/08/17 07:57 02/08/17 12:15 02/08/17 17:35 Bedside Glucose 167mg/dL (70-220) 113mg/dL (70-220) 127mg/dL (70-220) 126mg/dL (70-220) Results Result Diagram: 02/08/17 0606 02/08/17 0606 Results 24 hrs Laboratory Tests Test 02/07/17 20:20 02/08/17 06:06 02/08/17 07:57 02/08/17 12:15 Bedside Glucose 167 113 127 White Blood Count 4.2 L Red Blood Count 3.53 L Hemoglobin 10.6 L Hematocrit 30.6 L Mean Corpuscular Volume 86.7 Mean Corpuscular Hemoglobin 30.0 Mean Corpuscular Hemoglobin Concent 34.6 Red Cell Distribution Width 12.1 Platelet Count 191 Mean Platelet Volume 9.8 Neutrophils % 66.9 Lymphocytes % 22.3 Monocytes % 9.1 Eosinophils % 1.0 Basophils % 0.2 Nucleated Red Blood Cells % 0.0 Neutrophils # 2.8 Lymphocytes # 0.9 Monocytes # 0.4 Eosinophils # 0.0 Basophils # 0.0 Nucleated Red Blood Cells # 0.0 Sodium Level 136 Potassium Level 4.4 Chloride Level 105 Carbon Dioxide Level 21 Anion Gap 14 Blood Urea Nitrogen 12 Creatinine 0.84 Glucose Level 135 Calcium Level 8.7 Test 02/08/17 17:35 Bedside Glucose 126 Medications Medications Current Medications Ondansetron HCl (Zofran Inj) 4 mg Q6H PRN IV NAUSEA AND/OR VOMITING Last administered on 02/07/17 11:37; Admin Dose 4 MG; Start 02/04/17 at 19:30 Acetaminophen (Tylenol Tab) 650 mg Q6H PRN PO PAIN LEVEL 1-3 OR FEVER; Start 02/04/17 at 19:30 Morphine Sulfate (morphine) 2 mg Q4H PRN IV SEVERE PAIN LEVEL 7-10 Last administered on 02/08/17 14:26; Admin Dose 2 MG; Start 02/04/17 at 19:30 Famotidine (Pepcid Iv) 20 mg Q12 IV Last administered on 02/08/17 08:51; Admin Dose 20 MG; Start 02/04/17 at 21:00 Enoxaparin Sodium 30 mg 30 mg DAILY SC Last administered on 02/08/17 08:53; Admin Dose 30 MG; Start 02/05/17 at 09:00 Ceftriaxone Sodium (Rocephin) 50 ml @ 100 mls/hr DAILY IVPB Last administered on 02/08/17 08:51; Admin Dose 100 MLS/HR; Start 02/05/17 at 15:00 Aspirin (Halfprin) 81 mg DAILY PO Last administered on 02/08/17 08:52; Admin Dose 81 MG; Start 02/05/17 at 09:00 Atorvastatin Calcium (Lipitor) 40 mg HS PO Last administered on 02/07/17 20: 23; Admin Dose 40 MG; Start 02/05/17 at 21:00 Clopidogrel Bisulfate (plaVIX) 75 mg DAILY PO Last administered on 02/08/17 08:51; Admin Dose 75 MG; Start 02/05/17 at 09:00 Tramadol HCl (Ultram) 50 mg Q6H PRN PO PAIN LEVEL 1-5 Last administered on 03:40; Admin Dose 50 MG; Start 02/04/17 at 22:30 Clonidine (Catapres) 0.1 mg Q6H PRN PO ELEVATED BLOOD PRESSURE; Start at 23:00 Miscellaneous Information 1 ea NOTE XX ; Start 02/04/17 at 23:00 Glucose (Glutose) 15 gm Q15M PRN PO DECREASED GLUCOSE; Start 02/04/17 at 23:00 Glucose (Glutose) 22.5 gm Q15M PRN PO DECREASED GLUCOSE; Start 02/04/17 at 23: 00 Dextrose (D50w Syringe) 25 ml Q15M PRN IV DECREASED GLUCOSE; Start 02/04/17 at 23:00 Dextrose (D50w Syringe) 50 ml Q15M PRN IV DECREASED GLUCOSE; Start 02/04/17 at 23:00 Glucagon (Glucagen) 1 mg Q15M PRN IM DECREASED GLUCOSE; Start 02/04/17 at 23: 00 Glucose (Glutose) 15 gm Q15M PRN BUCCAL DECREASED GLUCOSE; Start 02/04/17 at 23:00 Diagnostic Test (Pha) (Accu-Chek) 1 ea 02 XX ; Start 02/06/17 at 02:00 Insulin Glargine (Lantus) 17 unit DAILY@20 SC Last administered on 02/07/17 20:22; Admin Dose 17 UNIT; Start 02/05/17 at 20:00 Fluconazole (Diflucan) 200 mg DAILY PO Last administered on 02/08/17 08:51; Admin Dose 200 MG; Start 02/06/17 at 09:00 Lidocaine 1 applic 1 applic PRN PRN TOP W/ DRESSING CHANGES PRN PAIN; Start at 08:00 Vancomycin HCl/ Sodium Chloride (Vancocin/NS) 250 ml @ 83.333 mls/ hr Q12H IVPB Last administered on 02/08/17 15:28; Admin Dose 83.333 MLS/HR; Start at 04:00 Miscellaneous Information (*Rx Drug Level Order Reminder*) ONCE ONCE XX ; Start 02/09/17 at 15:00; Stop 02/09/17 at 15:01 Gentamicin Sulfate (Gentamicin 0.1% Oint) 1 applic DAILY TOP ; Start 02/09/17 at 09:00 Sodium Hypochlorite (Dakin'S (Dilute 1/40%)) 1 applic DAILY TOP ; Start at 09:00 ARTURO HANCOCK MD Feb 08, 2017 18:04
--- NOTE | 2017-02-08 18:55 | PN ---
Date/Time of Note Date/Time of Note DATE: 02/08/17 TIME: 18:49 Assessment/Plan VTE Prophylaxis VTE Prophylaxis Intervention: SCD's Lines/Catheters IV [facility] [place] Assessment/Plan Chief Complaint/Hosp Course Patient is status post debridement of the left great toe and the right third toe today, pain is well controlled. Assessment/Plan -Right third toe left great toe ulcers with osteomyelitis of the right foot toe , status post excisional debridement of the right third toe and the left big toe on 02/[address] Raya, podiatry. is following in infection disease consultation. Continue antibiotics per ID. -Severe peripheral arterial disease. Dr. San in vascular surgery consultation, vascular interventions planned. -Urinary tract infection per UA, continue antibiotics per ID. -Hypertension -Hyperlipidemia -Hyperglycemia in patient with diabetes mellitus type 2. hemoglobin A1c is 10.8. Continue Lantus and pre-meal NovoLog. Dr. Cornejo is following in endocrinology consultation. -Obesity Further recommendations based on clinical course. Plan of care discussed with Dr. Garcia Problems: Exam/Review of Systems Vital Signs Vitals Vital Signs Date Time Temp Pulse Resp B/P Pulse Ox O2 Delivery O2 Flow Rate FiO2 02/08/17 14:00 98.5 91 17 114/62 99 02/04/17 19:21 Room Air Intake and Output 02/07/17 02/07/17 02/08/17 15:00 23:00 07:00 Intake Total 300 ml 1420 ml 570 ml Balance 300 ml 1420 ml 570 ml Exam Constitutional: alert, oriented Respiratory: normal air movement Cardiovascular: nl pulses Gastrointestinal: non-tender, soft Musculoskeletal: nl extremities to inspection Extremities: normal pulses. Results Result Diagram: 02/08/17 0606 02/08/17 0606 Results 24 hrs Laboratory Tests Test 02/07/17 20:20 02/08/17 06:06 02/08/17 07:57 02/08/17 12:15 Bedside Glucose 167 113 127 White Blood Count 4.2 L Red Blood Count 3.53 L Hemoglobin 10.6 L Hematocrit 30.6 L Mean Corpuscular Volume 86.7 Mean Corpuscular Hemoglobin 30.0 Mean Corpuscular Hemoglobin Concent 34.6 Red Cell Distribution Width 12.1 Platelet Count 191 Mean Platelet Volume 9.8 Neutrophils % 66.9 Lymphocytes % 22.3 Monocytes % 9.1 Eosinophils % 1.0 Basophils % 0.2 Nucleated Red Blood Cells % 0.0 Neutrophils # 2.8 Lymphocytes # 0.9 Monocytes # 0.4 Eosinophils # 0.0 Basophils # 0.0 Nucleated Red Blood Cells # 0.0 Sodium Level 136 Potassium Level 4.4 Chloride Level 105 Carbon Dioxide Level 21 Anion Gap 14 Blood Urea Nitrogen 12 Creatinine 0.84 Glucose Level 135 Calcium Level 8.7 Test 02/08/17 17:35 Bedside Glucose 126 Medications Medications Current Medications Ondansetron HCl (Zofran Inj) 4 mg Q6H PRN IV NAUSEA AND/OR VOMITING Last administered on 02/07/17 11:37; Admin Dose 4 MG; Start 02/04/17 at 19:30 Acetaminophen (Tylenol Tab) 650 mg Q6H PRN PO PAIN LEVEL 1-3 OR FEVER; Start 02/04/17 at 19:30 Morphine Sulfate (morphine) 2 mg Q4H PRN IV SEVERE PAIN LEVEL 7-10 Last administered on 02/08/17 14:26; Admin Dose 2 MG; Start 02/04/17 at 19:30 Famotidine (Pepcid Iv) 20 mg Q12 IV Last administered on 02/08/17 08:51; Admin Dose 20 MG; Start 02/04/17 at 21:00 Enoxaparin Sodium 30 mg 30 mg DAILY SC Last administered on 02/08/17 08:53; Admin Dose 30 MG; Start 02/05/17 at 09:00 Ceftriaxone Sodium (Rocephin) 50 ml @ 100 mls/hr DAILY IVPB Last administered on 02/08/17 08:51; Admin Dose 100 MLS/HR; Start 02/05/17 at 15:00 Aspirin (Halfprin) 81 mg DAILY PO Last administered on 02/08/17 08:52; Admin Dose 81 MG; Start 02/05/17 at 09:00 Atorvastatin Calcium (Lipitor) 40 mg HS PO Last administered on 02/07/17 20: 23; Admin Dose 40 MG; Start 02/05/17 at 21:00 Clopidogrel Bisulfate (plaVIX) 75 mg DAILY PO Last administered on 02/08/17 08:51; Admin Dose 75 MG; Start 02/05/17 at 09:00 Tramadol HCl (Ultram) 50 mg Q6H PRN PO PAIN LEVEL 1-5 Last administered on 03:40; Admin Dose 50 MG; Start 02/04/17 at 22:30 Clonidine (Catapres) 0.1 mg Q6H PRN PO ELEVATED BLOOD PRESSURE; Start at 23:00 Miscellaneous Information 1 ea NOTE XX ; Start 02/04/17 at 23:00 Glucose (Glutose) 15 gm Q15M PRN PO DECREASED GLUCOSE; Start 02/04/17 at 23:00 Glucose (Glutose) 22.5 gm Q15M PRN PO DECREASED GLUCOSE; Start 02/04/17 at 23: 00 Dextrose (D50w Syringe) 25 ml Q15M PRN IV DECREASED GLUCOSE; Start 02/04/17 at 23:00 Dextrose (D50w Syringe) 50 ml Q15M PRN IV DECREASED GLUCOSE; Start 02/04/17 at 23:00 Glucagon (Glucagen) 1 mg Q15M PRN IM DECREASED GLUCOSE; Start 02/04/17 at 23: 00 Glucose (Glutose) 15 gm Q15M PRN BUCCAL DECREASED GLUCOSE; Start 02/04/17 at 23:00 Diagnostic Test (Pha) (Accu-Chek) 1 ea 02 XX ; Start 02/06/17 at 02:00 Insulin Glargine (Lantus) 17 unit DAILY@20 SC Last administered on 02/07/17 20:22; Admin Dose 17 UNIT; Start 02/05/17 at 20:00 Fluconazole (Diflucan) 200 mg DAILY PO Last administered on 02/08/17 08:51; Admin Dose 200 MG; Start 02/06/17 at 09:00 Lidocaine 1 applic 1 applic PRN PRN TOP W/ DRESSING CHANGES PRN PAIN; Start at 08:00 Vancomycin HCl/ Sodium Chloride (Vancocin/NS) 250 ml @ 83.333 mls/ hr Q12H IVPB Last administered on 02/08/17 15:28; Admin Dose 83.333 MLS/HR; Start at 04:00 Miscellaneous Information (*Rx Drug Level Order Reminder*) ONCE ONCE XX ; Start 02/09/17 at 15:00; Stop 02/09/17 at 15:01 Gentamicin Sulfate (Gentamicin 0.1% Oint) 1 applic DAILY TOP ; Start 02/09/17 at 09:00 Sodium Hypochlorite (Dakin'S (Dilute 1/40%)) 1 applic DAILY TOP ; Start at 09:00 JOSE RANGEL Feb 08, 2017 18:55
[2017-02-08 20:00] VITALS: BP 138/61; RESP 18
[2017-02-08] MEDS: ATORVASTATIN 40 MG TAB PO SCH (20:26)
[2017-02-08] MEDS: INSULIN GLARGINE [LANtus] 3 ML PEN SC SCH (20:31)
--- NOTE | 2017-02-08 22:36 | PN ---
DATE: 02/08/2017 INFECTIOUS DISEASE PROGRESS NOTE SUBJECTIVE: No events overnight. The patient is debridement by Dr. Lee. She is in no di stress, afebrile. LABORATORY DATA: WBC today 4.2, no shift, no bands. BUN 12, creatinine 0.84. MICROBIOLOGY: No cultures. ANTIMICROBIALS: Patient is on: 1. Vancomycin 2. Rocephin. PHYSICAL EXAMINATION: GENERAL: Well-developed elderly woman in no distress. HEENT: Head atraumatic, normocephalic. Sclerae anicteric. Buccal mucosa pink. NECK: Supple. CHEST: Rise symmetrical. Breath sounds clear. HEART: S1, S2. ABDOMEN: Soft. Bowel tones present. ASSESSMENT: 1. Bilateral diabetic foot ulcerations with exposed bone of the left toe, status post incision and drainage. 2. Diabetes. 3. Diabetes neuropathy. 4. Positive urinalysis on admission, urine culture not done. PLAN: The patient remains stable. Continue present care, antibiotics. Await for final cultures. Most likely patient will require long-term IV antibiotics for osteomyelitis of the toe. Dictated By: JOSELITO AGARWAL COPPER MINER BLASTING for KT BROWNING MD NI/NTS Conf#: [id number] DID#: [id number] CC: RADHA DAWN MD;*EndCC*
[2017-02-09 02:00] VITALS: BP 124/60; RESP 19
[2017-02-09] MEDS: ACCU-CHEK XX SCH (02:00)
[2017-02-09] MEDS: VANCOMYCIN 1.5 GM in SOD CHLORIDE 0.9% 250 ML IVPB SCH (03:58)
[2017-02-09 06:36] LABS: BASOPHILS % 0.2 % (0.0-2.0); EOSINOPHILS % 0.8 % (0.0-7.0); HEMATOCRIT 31.4 % (37.0-47.0); HEMOGLOBIN 10.8 g/dl (12.0-16.0); LYMPHOCYTES # 1.2 10^3/ul (0.8-2.9); LYMPHOCYTES % 21.9 % (15.0-51.0); MEAN CORPUSCULAR HEMOGLOBIN 30.1 pg (29.0-33.0); MEAN CORPUSCULAR HGB CONC 34.4 g/dl (32.0-37.0); MEAN CORPUSCULAR VOLUME 87.5 fl (82.0-101.0); MEAN PLATELET VOLUME 9.6 fl (7.4-10.4); MONOCYTE # 0.6 10^3/ul (0.3-0.9); NEUTROPHIL # 3.5 10^3/ul (1.6-7.5); NEUTROPHILS % 65.7 % (39.0-77.0); PLATELET COUNT 212 10^3/UL (140-415); RED BLOOD COUNT 3.59 10^6/ul (4.20-5.40); RED CELL DISTRIBUTION WIDTH 11.9 % (11.5-14.5); WHITE BLOOD COUNT 5.3 10^3/ul (4.8-10.8)
[2017-02-09 06:49] LABS: CALCIUM 9.1 mg/dl (8.4-10.2); CREATININE 0.83 mg/dl (0.44-1.00); POTASSIUM 4.3 mmol/L (3.5-5.1)
[2017-02-09] MEDS: INSULIN ASPART [NOVOLOG] 3 ML PEN SC SCH ×7 (08:00→21:00)
[2017-02-09] MEDS: CLOPIDOGREL 75 MG TAB PO SCH (08:06)
[2017-02-09] MEDS: GENTAMICIN 0.1% 15 GM OINT TOP SCH (08:06)
[2017-02-09] MEDS: CEFTRIAXONE 1 GM/50 ML (PMX) 50 ML IVPB SCH (08:06)
[2017-02-09] MEDS: LINAGLIPTIN 5 MG TABLET PO SCH (08:06)
[2017-02-09] MEDS: ASPIRIN (EC) 81 MG TAB PO SCH (08:06)
[2017-02-09] MEDS: FAMOTIDINE 20 MG INJ IV SCH ×2 (08:06→21:23)
[2017-02-09] MEDS: FLUCONAZOLE 200 MG TAB PO SCH (08:06)
[2017-02-09] MEDS: metFORMIN 500 MG TAB PO SCH ×2 (08:06→17:50)
[2017-02-09] MEDS: ENOXAPARIN 30 MG/0.3 ML SYG SC SCH (08:08)
[2017-02-09] MEDS: SODIUM HYPOCHLORITE 1/40% 1L IRRIG TOP SCH (08:16)
[2017-02-09 08:29] VITALS: BP 130/58; RESP 18
[2017-02-09] MEDS: morphine 2 MG INJ IV PRN ×3 (12:22→23:51)
--- NOTE | 2017-02-09 13:45 | CONS ---
Date/Time of Note Date/Time of Note DATE: 02/09/17 TIME: 13:43 Assessment/Plan Assessment/Plan Problems: (1) Type 2 diabetes mellitus with foot ulcer Status: Chronic Comment: Ongoing excellent glycemic control on regimen placed by primary team. Will monitor. Pt. will need to be d/c'ed on multi-dose insulin (MDI) therapy. Consultation Date/Type/Reason Admit Date/Time Feb 04, 2017 at 17:34 Initial Consult Date 02/07/17 Type of Consultation: Endocrinology Reason for Consultation T2DM management Referring Provider: JOSE RANGEL 24 HR Interval Summary Constitutional: improved, no complaints Detailed Summary Respiratory: no complaints Cardiovascular: no complaints Gastrointestinal: no complaints Genitourinary: no complaints Musculoskeletal: bone/joint pain (L foot) Neurologic: no complaints Exam/Review of Systems Vital Signs Vitals VS - Last 72 Hours, by Label Date Time Temp Pulse Resp B/P Pulse Ox O2 Delivery O2 Flow Rate FiO2 02/09/17 08:29 97.8 87 18 130/58 100 02/09/17 02:00 98.6 90 19 124/60 98 02/08/17 20:00 98.7 99 18 138/61 98 02/08/17 14:00 98.5 91 17 114/62 99 02/08/17 07:20 98.4 84 18 111/55 97 02/08/17 02:51 98.8 63 18 101/51 99 02/07/17 20:23 98.0 64 18 130/62 97 02/07/17 14:00 97.9 50 18 121/75 99 02/07/17 07:49 98.6 50 18 138/62 99 02/07/17 02:39 98.8 86 19 111/55 97 02/06/17 19:58 98.4 85 20 138/60 99 02/06/17 14:04 98.0 94 20 108/58 97 Vital Signs Date Time Temp Pulse Resp B/P Pulse Ox O2 Delivery O2 Flow Rate FiO2 02/09/17 08:29 97.8 87 18 130/58 100 Intake and Output 02/08/17 02/08/17 02/09/17 15:00 23:00 07:00 Intake Total 1880.000 ml 400 ml Output Total 950 ml Balance 930.000 ml 400 ml Exam Constitutional: alert, obese, oriented Psych: nl mood/affect, no complaints Respiratory: clear to auscultation, normal air movement Cardiovascular: regular rate and rhythm, No edema, No murmurs/extra sounds, No rub Gastrointestinal: bowel sounds, nl liver, spleen, non-tender, soft, No mass, No rebound or guarding Musculoskeletal: No nl extremities to inspection (B feet wrapped) Extremities: No clubbing, No cyanosis, No edema Neurological: WELLNESS COORDINATOR II-XII intact, nl mental status, nl speech, nl strength Additional Comments Bedside Glucose - 72 Hours Test 02/06/17 17:16 02/06/17 22:15 02/07/17 08:05 02/07/17 12:42 Bedside Glucose 135mg/dL (70-220) 148mg/dL (70-220) 170mg/dL (70-220) 149mg/dL (70-220) Test 02/07/17 17:38 02/07/17 20:20 02/08/17 07:57 02/08/17 12:15 Bedside Glucose 90mg/dL (70-220) 167mg/dL (70-220) 113mg/dL (70-220) 127mg/dL (70-220) Test 02/08/17 17:35 02/08/17 20:24 02/09/17 07:59 02/09/17 12:11 Bedside Glucose 126mg/dL (70-220) 170mg/dL (70-220) 135mg/dL (70-220) 174mg/dL (70-220) Results Result Diagram: 02/09/17 0549 02/09/17 0549 Results 24 hrs Laboratory Tests Test 02/08/17 17:35 02/08/17 20:24 02/09/17 05:49 02/09/17 07:59 Bedside Glucose 126 170 135 White Blood Count 5.3 # Red Blood Count 3.59 L Hemoglobin 10.8 L Hematocrit 31.4 L Mean Corpuscular Volume 87.5 Mean Corpuscular Hemoglobin 30.1 Mean Corpuscular Hemoglobin Concent 34.4 Red Cell Distribution Width 11.9 Platelet Count 212 Mean Platelet Volume 9.6 Neutrophils % 65.7 Lymphocytes % 21.9 Monocytes % 11.0 Eosinophils % 0.8 Basophils % 0.2 Nucleated Red Blood Cells % 0.0 Neutrophils # 3.5 Lymphocytes # 1.2 Monocytes # 0.6 Eosinophils # 0.0 Basophils # 0.0 Nucleated Red Blood Cells # 0.0 Sodium Level 140 Potassium Level 4.3 Chloride Level 104 Carbon Dioxide Level 25 Anion Gap 15 Blood Urea Nitrogen 11 Creatinine 0.83 Glucose Level 153 Calcium Level 9.1 Test 02/09/17 12:11 Bedside Glucose 174 Medications Medications Current Medications Ondansetron HCl (Zofran Inj) 4 mg Q6H PRN IV NAUSEA AND/OR VOMITING Last administered on 02/07/17 11:37; Admin Dose 4 MG; Start 02/04/17 at 19:30 Acetaminophen (Tylenol Tab) 650 mg Q6H PRN PO PAIN LEVEL 1-3 OR FEVER; Start 02/04/17 at 19:30 Morphine Sulfate (morphine) 2 mg Q4H PRN IV SEVERE PAIN LEVEL 7-10 Last administered on 02/09/17 12:22; Admin Dose 2 MG; Start 02/04/17 at 19:30 Famotidine (Pepcid Iv) 20 mg Q12 IV Last administered on 02/09/17 08:06; Admin Dose 20 MG; Start 02/04/17 at 21:00 Enoxaparin Sodium 30 mg 30 mg DAILY SC Last administered on 02/09/17 08:08; Admin Dose 30 MG; Start 02/05/17 at 09:00 Ceftriaxone Sodium (Rocephin) 50 ml @ 100 mls/hr DAILY IVPB Last administered on 02/09/17 08:06; Admin Dose 100 MLS/HR; Start 02/05/17 at 15:00 Aspirin (Halfprin) 81 mg DAILY PO Last administered on 02/09/17 08:06; Admin Dose 81 MG; Start 02/05/17 at 09:00 Atorvastatin Calcium (Lipitor) 40 mg HS PO Last administered on 02/08/17 20: 26; Admin Dose 40 MG; Start 02/05/17 at 21:00 Clopidogrel Bisulfate (plaVIX) 75 mg DAILY PO Last administered on 02/09/17 08:06; Admin Dose 75 MG; Start 02/05/17 at 09:00 Tramadol HCl (Ultram) 50 mg Q6H PRN PO PAIN LEVEL 1-5 Last administered on 03:40; Admin Dose 50 MG; Start 02/04/17 at 22:30 Clonidine (Catapres) 0.1 mg Q6H PRN PO ELEVATED BLOOD PRESSURE; Start at 23:00 Miscellaneous Information 1 ea NOTE XX ; Start 02/04/17 at 23:00 Glucose (Glutose) 15 gm Q15M PRN PO DECREASED GLUCOSE; Start 02/04/17 at 23:00 Glucose (Glutose) 22.5 gm Q15M PRN PO DECREASED GLUCOSE; Start 02/04/17 at 23: 00 Dextrose (D50w Syringe) 25 ml Q15M PRN IV DECREASED GLUCOSE; Start 02/04/17 at 23:00 Dextrose (D50w Syringe) 50 ml Q15M PRN IV DECREASED GLUCOSE; Start 02/04/17 at 23:00 Glucagon (Glucagen) 1 mg Q15M PRN IM DECREASED GLUCOSE; Start 02/04/17 at 23: 00 Glucose (Glutose) 15 gm Q15M PRN BUCCAL DECREASED GLUCOSE; Start 02/04/17 at 23:00 Diagnostic Test (Pha) (Accu-Chek) 1 ea 02 XX ; Start 02/06/17 at 02:00 Insulin Glargine (Lantus) 17 unit DAILY@20 SC Last administered on 02/08/17 20:31; Admin Dose 17 UNIT; Start 02/05/17 at 20:00 Fluconazole (Diflucan) 200 mg DAILY PO Last administered on 02/09/17 08:06; Admin Dose 200 MG; Start 02/06/17 at 09:00 Lidocaine 1 applic 1 applic PRN PRN TOP W/ DRESSING CHANGES PRN PAIN; Start at 08:00 Vancomycin HCl/ Sodium Chloride (Vancocin/NS) 250 ml @ 83.333 mls/ hr Q12H IVPB Last administered on 02/09/17 03:58; Admin Dose 83.333 MLS/HR; Start at 04:00 Miscellaneous Information (*Rx Drug Level Order Reminder*) ONCE ONCE XX ; Start 02/09/17 at 15:00; Stop 02/09/17 at 15:01 Gentamicin Sulfate (Gentamicin 0.1% Oint) 1 applic DAILY TOP Last administered on 02/09/17 08:06; Admin Dose 1 APPLIC; Start 02/09/17 at 09:00 Sodium Hypochlorite (Dakin'S (Dilute 1/40%)) 1 applic DAILY TOP Last administered on 02/09/17t 08:16; Admin Dose 1 APPLIC; Start 02/09/17 at 09:00 ARTURO HANCOCK MD Feb 09, 2017 13:45
--- NOTE | 2017-02-09 14:51 | CONS ---
Date/Time of Note Date/Time of Note DATE: 02/09/17 TIME: 14:50 Assessment/Plan Assessment/Plan Chief Complaint/Hosp Course SUBJECTIVE: No events overnight. Awake, in no distress, afebrile. MICROBIOLOGY: Wound culture pending ANTIMICROBIALS: Patient is on: 1. Vancomycin 2. Rocephin. PHYSICAL EXAMINATION: GENERAL: Well-developed elderly woman in no distress. HEENT: Head atraumatic, normocephalic. Sclerae anicteric. Buccal mucosa pink. NECK: Supple. CHEST: Rise symmetrical. Breath sounds clear. HEART: S1, S2. ABDOMEN: Soft. Bowel tones present. ASSESSMENT: 1. Bilateral diabetic foot ulcerations with exposed bone of the left toe, status post incision and drainage. 2. Diabetes. 3. Diabetes neuropathy. 4. Positive urinalysis on admission, urine culture not done. PLAN: The patient remains stable. Continue present care, antibiotics. Await for final cultures. Most likely patient will require long-term IV antibiotics for osteomyelitis of the toe. Final recommendations once cultures finalized DW staff Problems: Consultation Date/Type/Reason Admit Date/Time Feb 04, 2017 at 17:34 Initial Consult Date 02/07/17 Type of Consultation: ID Referring Provider: JOSE RANGEL Exam/Review of Systems Vital Signs Vitals Vital Signs Date Time Temp Pulse Resp B/P Pulse Ox O2 Delivery O2 Flow Rate FiO2 02/09/17 08:29 97.8 87 18 130/58 100 Intake and Output 02/08/17 02/08/17 02/09/17 15:00 23:00 07:00 Intake Total 1880.000 ml 400 ml Output Total 950 ml Balance 930.000 ml 400 ml Results Result Diagram: 02/09/17 0549 02/09/17 0549 Results 24 hrs Laboratory Tests Test 02/08/17 17:35 02/08/17 20:24 02/09/17 05:49 02/09/17 07:59 Bedside Glucose 126 170 135 White Blood Count 5.3 # Red Blood Count 3.59 L Hemoglobin 10.8 L Hematocrit 31.4 L Mean Corpuscular Volume 87.5 Mean Corpuscular Hemoglobin 30.1 Mean Corpuscular Hemoglobin Concent 34.4 Red Cell Distribution Width 11.9 Platelet Count 212 Mean Platelet Volume 9.6 Neutrophils % 65.7 Lymphocytes % 21.9 Monocytes % 11.0 Eosinophils % 0.8 Basophils % 0.2 Nucleated Red Blood Cells % 0.0 Neutrophils # 3.5 Lymphocytes # 1.2 Monocytes # 0.6 Eosinophils # 0.0 Basophils # 0.0 Nucleated Red Blood Cells # 0.0 Sodium Level 140 Potassium Level 4.3 Chloride Level 104 Carbon Dioxide Level 25 Anion Gap 15 Blood Urea Nitrogen 11 Creatinine 0.83 Glucose Level 153 Calcium Level 9.1 Test 02/09/17 12:11 Bedside Glucose 174 Medications Medications Current Medications Ondansetron HCl (Zofran Inj) 4 mg Q6H PRN IV NAUSEA AND/OR VOMITING Last administered on 02/07/17 11:37; Admin Dose 4 MG; Start 02/04/17 at 19:30 Acetaminophen (Tylenol Tab) 650 mg Q6H PRN PO PAIN LEVEL 1-3 OR FEVER; Start 02/04/17 at 19:30 Morphine Sulfate (morphine) 2 mg Q4H PRN IV SEVERE PAIN LEVEL 7-10 Last administered on 02/09/17 12:22; Admin Dose 2 MG; Start 02/04/17 at 19:30 Famotidine (Pepcid Iv) 20 mg Q12 IV Last administered on 02/09/17 08:06; Admin Dose 20 MG; Start 02/04/17 at 21:00 Enoxaparin Sodium 30 mg 30 mg DAILY SC Last administered on 02/09/17 08:08; Admin Dose 30 MG; Start 02/05/17 at 09:00 Ceftriaxone Sodium (Rocephin) 50 ml @ 100 mls/hr DAILY IVPB Last administered on 02/09/17 08:06; Admin Dose 100 MLS/HR; Start 02/05/17 at 15:00 Aspirin (Halfprin) 81 mg DAILY PO Last administered on 02/09/17 08:06; Admin Dose 81 MG; Start 02/05/17 at 09:00 Atorvastatin Calcium (Lipitor) 40 mg HS PO Last administered on 02/08/17 20: 26; Admin Dose 40 MG; Start 02/05/17 at 21:00 Clopidogrel Bisulfate (plaVIX) 75 mg DAILY PO Last administered on 02/09/17 08:06; Admin Dose 75 MG; Start 02/05/17 at 09:00 Tramadol HCl (Ultram) 50 mg Q6H PRN PO PAIN LEVEL 1-5 Last administered on 03:40; Admin Dose 50 MG; Start 02/04/17 at 22:30 Clonidine (Catapres) 0.1 mg Q6H PRN PO ELEVATED BLOOD PRESSURE; Start at 23:00 Miscellaneous Information 1 ea NOTE XX ; Start 02/04/17 at 23:00 Glucose (Glutose) 15 gm Q15M PRN PO DECREASED GLUCOSE; Start 02/04/17 at 23:00 Glucose (Glutose) 22.5 gm Q15M PRN PO DECREASED GLUCOSE; Start 02/04/17 at 23: 00 Dextrose (D50w Syringe) 25 ml Q15M PRN IV DECREASED GLUCOSE; Start 02/04/17 at 23:00 Dextrose (D50w Syringe) 50 ml Q15M PRN IV DECREASED GLUCOSE; Start 02/04/17 at 23:00 Glucagon (Glucagen) 1 mg Q15M PRN IM DECREASED GLUCOSE; Start 02/04/17 at 23: 00 Glucose (Glutose) 15 gm Q15M PRN BUCCAL DECREASED GLUCOSE; Start 02/04/17 at 23:00 Diagnostic Test (Pha) (Accu-Chek) 1 ea 02 XX ; Start 02/06/17 at 02:00 Insulin Glargine (Lantus) 17 unit DAILY@20 SC Last administered on 02/08/17 20:31; Admin Dose 17 UNIT; Start 02/05/17 at 20:00 Fluconazole (Diflucan) 200 mg DAILY PO Last administered on 02/09/17 08:06; Admin Dose 200 MG; Start 02/06/17 at 09:00 Lidocaine 1 applic 1 applic PRN PRN TOP W/ DRESSING CHANGES PRN PAIN; Start at 08:00 Vancomycin HCl/ Sodium Chloride (Vancocin/NS) 250 ml @ 83.333 mls/ hr Q12H IVPB Last administered on 02/09/17 03:58; Admin Dose 83.333 MLS/HR; Start at 04:00 Miscellaneous Information (*Rx Drug Level Order Reminder*) ONCE ONCE XX ; Start 02/09/17 at 15:00; Stop 02/09/17 at 15:01 Gentamicin Sulfate (Gentamicin 0.1% Oint) 1 applic DAILY TOP Last administered on 02/09/17 08:06; Admin Dose 1 APPLIC; Start 02/09/17 at 09:00 Sodium Hypochlorite (Dakin'S (Dilute 1/40%)) 1 applic DAILY TOP Last administered on 02/09/17 08:16; Admin Dose 1 APPLIC; Start 02/09/17 at 09:00 JOSELITO AGARWAL NP Feb 09, 2017 14:51
[2017-02-09] MEDS: VANCOMYCIN 1 GM in NS 250 ML IVPB SCH (17:49)
--- NOTE | 2017-02-09 18:15 | PN ---
Date/Time of Note Date/Time of Note DATE: 02/09/17 TIME: 18:14 Assessment/Plan VTE Prophylaxis VTE Prophylaxis Intervention: SCD's Lines/Catheters IV C[facility]ter Type (from [facility]): [place] [facility] Urinary Cath still in place: No Assessment/Plan Chief Complaint/Hosp Course Patient remains hemodynamically stable, blood sugar is well controlled Assessment/Plan -Right third toe left great toe ulcers with osteomyelitis of the right foot toe , status post excisional debridement of the right third toe and the left big toe on 02/[address] Raya, podiatry. is following in infection disease consultation. Continue antibiotics per ID. -Severe peripheral arterial disease. Dr. San in vascular surgery consultation, vascular interventions planned. -Urinary tract infection per UA, continue antibiotics per ID. -Hypertension -Hyperlipidemia -Hyperglycemia in patient with diabetes mellitus type 2. hemoglobin A1c is 10.8. Continue Lantus and pre-meal NovoLog. Dr. Cornejo is following in endocrinology consultation. -Obesity Further recommendations based on clinical course. Plan of care discussed with Dr. Garcia Problems: Exam/Review of Systems Vital Signs Vitals Vital Signs Date Time Temp Pulse Resp B/P Pulse Ox O2 Delivery O2 Flow Rate FiO2 02/09/17 08:29 97.8 87 18 130/58 100 Intake and Output 02/08/17 02/08/17 02/09/17 15:00 23:00 07:00 Intake Total 1880.000 ml 400 ml Output Total 950 ml Balance 930.000 ml 400 ml Exam Constitutional: alert, oriented Respiratory: normal air movement Cardiovascular: nl pulses Gastrointestinal: non-tender, soft Musculoskeletal: nl extremities to inspection Extremities: normal pulses. Results Result Diagram: 02/09/17 0549 02/09/17 0549 Results 24 hrs Laboratory Tests Test 02/08/17 20:24 02/09/17 05:49 02/09/17 07:59 02/09/17 12:11 Bedside Glucose 170 135 174 White Blood Count 5.3 # Red Blood Count 3.59 L Hemoglobin 10.8 L Hematocrit 31.4 L Mean Corpuscular Volume 87.5 Mean Corpuscular Hemoglobin 30.1 Mean Corpuscular Hemoglobin Concent 34.4 Red Cell Distribution Width 11.9 Platelet Count 212 Mean Platelet Volume 9.6 Neutrophils % 65.7 Lymphocytes % 21.9 Monocytes % 11.0 Eosinophils % 0.8 Basophils % 0.2 Nucleated Red Blood Cells % 0.0 Neutrophils # 3.5 Lymphocytes # 1.2 Monocytes # 0.6 Eosinophils # 0.0 Basophils # 0.0 Nucleated Red Blood Cells # 0.0 Sodium Level 140 Potassium Level 4.3 Chloride Level 104 Carbon Dioxide Level 25 Anion Gap 15 Blood Urea Nitrogen 11 Creatinine 0.83 Glucose Level 153 Calcium Level 9.1 Test 02/09/17 15:17 02/09/17 17:48 Vancomycin Level Trough 19.8 Bedside Glucose 132 Medications Medications Current Medications Ondansetron HCl (Zofran Inj) 4 mg Q6H PRN IV NAUSEA AND/OR VOMITING Last administered on 02/07/17 11:37; Admin Dose 4 MG; Start 02/04/17 at 19:30 Acetaminophen (Tylenol Tab) 650 mg Q6H PRN PO PAIN LEVEL 1-3 OR FEVER; Start 02/04/17 at 19:30 Morphine Sulfate (morphine) 2 mg Q4H PRN IV SEVERE PAIN LEVEL 7-10 Last administered on 02/09/17 12:22; Admin Dose 2 MG; Start 02/04/17 at 19:30 Famotidine (Pepcid Iv) 20 mg Q12 IV Last administered on 02/09/17 08:06; Admin Dose 20 MG; Start 02/04/17 at 21:00 Enoxaparin Sodium 30 mg 30 mg DAILY SC Last administered on 02/09/17 08:08; Admin Dose 30 MG; Start 02/05/17 at 09:00 Ceftriaxone Sodium (Rocephin) 50 ml @ 100 mls/hr DAILY IVPB Last administered on 02/09/17 08:06; Admin Dose 100 MLS/HR; Start 02/05/17 at 15:00 Aspirin (Halfprin) 81 mg DAILY PO Last administered on 02/09/17 08:06; Admin Dose 81 MG; Start 02/05/17 at 09:00 Atorvastatin Calcium (Lipitor) 40 mg HS PO Last administered on 02/08/17 20: 26; Admin Dose 40 MG; Start 02/05/17 at 21:00 Clopidogrel Bisulfate (plaVIX) 75 mg DAILY PO Last administered on 02/09/17 08:06; Admin Dose 75 MG; Start 02/05/17 at 09:00 Tramadol HCl (Ultram) 50 mg Q6H PRN PO PAIN LEVEL 1-5 Last administered on 03:40; Admin Dose 50 MG; Start 02/04/17 at 22:30 Clonidine (Catapres) 0.1 mg Q6H PRN PO ELEVATED BLOOD PRESSURE; Start at 23:00 Miscellaneous Information 1 ea NOTE XX ; Start 02/04/17 at 23:00 Glucose (Glutose) 15 gm Q15M PRN PO DECREASED GLUCOSE; Start 02/04/17 at 23:00 Glucose (Glutose) 22.5 gm Q15M PRN PO DECREASED GLUCOSE; Start 02/04/17 at 23: 00 Dextrose (D50w Syringe) 25 ml Q15M PRN IV DECREASED GLUCOSE; Start 02/04/17 at 23:00 Dextrose (D50w Syringe) 50 ml Q15M PRN IV DECREASED GLUCOSE; Start 02/04/17 at 23:00 Glucagon (Glucagen) 1 mg Q15M PRN IM DECREASED GLUCOSE; Start 02/04/17 at 23: 00 Glucose (Glutose) 15 gm Q15M PRN BUCCAL DECREASED GLUCOSE; Start 02/04/17 at 23:00 Diagnostic Test (Pha) (Accu-Chek) 1 ea 02 XX ; Start 02/06/17 at 02:00 Insulin Glargine (Lantus) 17 unit DAILY@20 SC Last administered on 02/08/17 20:31; Admin Dose 17 UNIT; Start 02/05/17 at 20:00 Fluconazole (Diflucan) 200 mg DAILY PO Last administered on 02/09/17 08:06; Admin Dose 200 MG; Start 02/06/17 at 09:00 Lidocaine (Lmx 4% Plus) 1 applic PRN PRN TOP W/ DRESSING CHANGES PRN PAIN; Start 02/06/17 at 08:00 Gentamicin Sulfate (Gentamicin 0.1% Oint) 1 applic DAILY TOP Last administered on 02/09/17 08:06; Admin Dose 1 APPLIC; Start 02/09/17 at 09:00 Sodium Hypochlorite 1 applic 1 applic DAILY TOP Last administered on 08:16; Admin Dose 1 APPLIC; Start 02/09/17 at 09:00 Vancomycin HCl (Vancocin) 250 ml @ 125 mls/hr Q12H IVPB Last administered on 12/15/17at 17:49; Admin Dose 125 MLS/HR; Start 02/09/17 at 17:00 JOSE RANGEL Feb 09, 2017 18:15
[2017-02-09 20:00] VITALS: BP 122/58; RESP 20
[2017-02-09] MEDS: INSULIN GLARGINE [LANtus] 3 ML PEN SC SCH (21:23)
[2017-02-09] MEDS: ATORVASTATIN 40 MG TAB PO SCH (21:24)
[2017-02-10] MEDS: ACCU-CHEK XX SCH (02:00)
[2017-02-10 02:24] VITALS: BP 127/61; RESP 20
[2017-02-10] MEDS: VANCOMYCIN 1 GM in NS 250 ML IVPB SCH ×2 (05:39→17:39)
[2017-02-10 06:55] LABS: CALCIUM 8.5 mg/dl (8.4-10.2); CREATININE 0.84 mg/dl (0.44-1.00); POTASSIUM 3.9 mmol/L (3.5-5.1)
[2017-02-10 08:05] VITALS: BP 132/63; RESP 20
[2017-02-10] MEDS: FAMOTIDINE 20 MG INJ IV SCH ×2 (08:24→21:38)
[2017-02-10] MEDS: ASPIRIN (EC) 81 MG TAB PO SCH (08:24)
[2017-02-10] MEDS: metFORMIN 500 MG TAB PO SCH ×2 (08:24→17:40)
[2017-02-10] MEDS: CEFTRIAXONE 1 GM/50 ML (PMX) 50 ML IVPB SCH (08:24)
[2017-02-10] MEDS: LINAGLIPTIN 5 MG TABLET PO SCH (08:24)
[2017-02-10] MEDS: CLOPIDOGREL 75 MG TAB PO SCH (08:24)
[2017-02-10] MEDS: FLUCONAZOLE 200 MG TAB PO SCH (08:24)
[2017-02-10] MEDS: INSULIN ASPART [NOVOLOG] 3 ML PEN SC SCH ×7 (08:27→21:00)
[2017-02-10] MEDS: GENTAMICIN 0.1% 15 GM OINT TOP SCH (08:28)
[2017-02-10] MEDS: ENOXAPARIN 30 MG/0.3 ML SYG SC SCH (08:28)
[2017-02-10] MEDS: SODIUM HYPOCHLORITE 1/40% 1L IRRIG TOP SCH (08:28)
--- NOTE | 2017-02-10 10:12 | CONS ---
Date/Time of Note Date/Time of Note DATE: 02/10/17 TIME: 10:08 Assessment/Plan Assessment/Plan Problems: (1) Type 2 diabetes mellitus with foot ulcer Status: Chronic Comment: Patient remains with excellent glycemic control on the current regimen. The primary care team has done an outstanding job and selection and maintenance of medication and sugar control Qualifiers: Diabetes mellitus care home insulin use: without care home use Qualified Code: E11.621 - Type 2 diabetes mellitus with foot ulcer, without long-term current use of insulin (2) Osteomyelitis of toe of right foot Status: Acute Comment: On antibiotics. (3) Peripheral vascular disease Status: Chronic Comment: Noted. Consultation Date/Type/Reason Admit Date/Time Feb 04, 2017 at 17:34 Initial Consult Date 02/07/17 Type of Consultation: Endocrinology Reason for Consultation Diabetes mellitus type 2 with foot ulcer Referring Provider: JOSE RANGEL 24 HR Interval Summary Free Text/Dictation Patient reports that she is doing relatively well although still has pain from her feet Exam/Review of Systems Vital Signs Vitals Vital Signs Date Time Temp Pulse Resp B/P Pulse Ox O2 Delivery O2 Flow Rate FiO2 02/10/17 08:05 97.8 95 20 132/63 98 Intake and Output 02/09/17 02/09/17 02/10/17 15:00 23:00 07:00 Intake Total 300 ml 1010 ml 500 ml Balance 300 ml 1010 ml 500 ml Exam Constitutional: alert, oriented Neck: non-tender, supple Respiratory: clear to auscultation, normal air movement Cardiovascular: nl pulses, regular rate and rhythm Results Result Diagram: 02/09/17 0549 02/10/17 0526 Results 24 hrs Laboratory Tests Test 02/09/17 12:11 02/09/17 15:17 02/09/17 17:48 02/09/17 21:20 Bedside Glucose 174 132 99 Vancomycin Level Trough 19.8 Test 02/10/17 05:26 02/10/17 08:16 Sodium Level 137 Potassium Level 3.9 Chloride Level 102 Carbon Dioxide Level 26 Anion Gap 13 Blood Urea Nitrogen 10 Creatinine 0.84 Glucose Level 124 Calcium Level 8.5 Bedside Glucose 156 Medications Medications Current Medications Ondansetron HCl (Zofran Inj) 4 mg Q6H PRN IV NAUSEA AND/OR VOMITING Last administered on 02/07/17t 11:37; Admin Dose 4 MG; Start 02/04/17 at 19:30 Acetaminophen (Tylenol Tab) 650 mg Q6H PRN PO PAIN LEVEL 1-3 OR FEVER; Start 02/04/17 at 19:30 Morphine Sulfate (morphine) 2 mg Q4H PRN IV SEVERE PAIN LEVEL 7-10 Last administered on 02/09/17 23:51; Admin Dose 2 MG; Start 02/04/17 at 19:30 Famotidine (Pepcid Iv) 20 mg Q12 IV Last administered on 02/10/17 08:24; Admin Dose 20 MG; Start 02/04/17 at 21:00 Enoxaparin Sodium 30 mg 30 mg DAILY SC Last administered on 02/10/17 08:28; Admin Dose 30 MG; Start 02/05/17 at 09:00 Ceftriaxone Sodium (Rocephin) 50 ml @ 100 mls/hr DAILY IVPB Last administered on 02/10/17 08:24; Admin Dose 100 MLS/HR; Start 02/05/17 at 15:00 Aspirin (Halfprin) 81 mg DAILY PO Last administered on 02/10/17 08:24; Admin Dose 81 MG; Start 02/05/17 at 09:00 Atorvastatin Calcium (Lipitor) 40 mg HS PO Last administered on 02/09/17 21: 24; Admin Dose 40 MG; Start 02/05/17 at 21:00 Clopidogrel Bisulfate (plaVIX) 75 mg DAILY PO Last administered on 02/10/17 08:24; Admin Dose 75 MG; Start 02/05/17 at 09:00 Tramadol HCl (Ultram) 50 mg Q6H PRN PO PAIN LEVEL 1-5 Last administered on 03:40; Admin Dose 50 MG; Start 02/04/17 at 22:30 Clonidine (Catapres) 0.1 mg Q6H PRN PO ELEVATED BLOOD PRESSURE; Start at 23:00 Miscellaneous Information 1 ea NOTE XX ; Start 02/04/17 at 23:00 Glucose (Glutose) 15 gm Q15M PRN PO DECREASED GLUCOSE; Start 02/04/17 at 23:00 Glucose (Glutose) 22.5 gm Q15M PRN PO DECREASED GLUCOSE; Start 02/04/17 at 23: 00 Dextrose (D50w Syringe) 25 ml Q15M PRN IV DECREASED GLUCOSE; Start 02/04/17 at 23:00 Dextrose (D50w Syringe) 50 ml Q15M PRN IV DECREASED GLUCOSE; Start 02/04/17 at 23:00 Glucagon (Glucagen) 1 mg Q15M PRN IM DECREASED GLUCOSE; Start 02/04/17 at 23: 00 Glucose (Glutose) 15 gm Q15M PRN BUCCAL DECREASED GLUCOSE; Start 02/04/17 at 23:00 Diagnostic Test (Pha) (Accu-Chek) 1 ea 02 XX ; Start 02/06/17 at 02:00 Insulin Glargine (Lantus) 17 unit DAILY@20 SC Last administered on 02/09/17 21:23; Admin Dose 17 UNIT; Start 02/05/17 at 20:00 Fluconazole (Diflucan) 200 mg DAILY PO Last administered on 02/10/17 08:24; Admin Dose 200 MG; Start 02/06/17 at 09:00 Lidocaine (Lmx 4% Plus) 1 applic PRN PRN TOP W/ DRESSING CHANGES PRN PAIN; Start 02/06/17 at 08:00 Gentamicin Sulfate (Gentamicin 0.1% Oint) 1 applic DAILY TOP Last administered on 02/10/17 08:28; Admin Dose 1 APPLIC; Start 02/09/17 at 09:00 Sodium Hypochlorite 1 applic 1 applic DAILY TOP Last administered on 08:28; Admin Dose 1 APPLIC; Start 02/09/17 at 09:00 Vancomycin HCl (Vancocin) 250 ml @ 125 mls/hr Q12H IVPB Last administered on 02/10/17 05:39; Admin Dose 125 MLS/HR; Start 02/09/17 at 17:00 JOSH CUNNINGHAM MD Feb 10, 2017 10:12
--- NOTE | 2017-02-10 14:31 | CONS ---
Date/Time of Note Date/Time of Note DATE: 02/10/17 TIME: 14:31 Assessment/Plan Assessment/Plan Chief Complaint/Hosp Course SUBJECTIVE: No events overnight. Awake, in no distress, afebrile. MICROBIOLOGY: Wound culture pending ANTIMICROBIALS: Patient is on: 1. Vancomycin 2. Rocephin. PHYSICAL EXAMINATION: GENERAL: Well-developed elderly woman in no distress. HEENT: Head atraumatic, normocephalic. Sclerae anicteric. Buccal mucosa pink. NECK: Supple. CHEST: Rise symmetrical. Breath sounds clear. HEART: S1, S2. ABDOMEN: Soft. Bowel tones present. ASSESSMENT: 1. Bilateral diabetic foot ulcerations with exposed bone of the left toe, status post incision and drainage. 2. Diabetes. 3. Diabetes neuropathy. 4. Positive urinalysis on admission, urine culture not done. PLAN: The patient remains stable. Continue present care, antibiotics. Await for final cultures. Most likely patient will require long-term IV antibiotics for osteomyelitis of the toe. Final recommendations once cultures finalized DW staff Problems: Consultation Date/Type/Reason Admit Date/Time Feb 04, 2017 at 17:34 Initial Consult Date 02/07/17 Type of Consultation: ID Referring Provider: JOSE RANGEL Exam/Review of Systems Vital Signs Vitals Vital Signs Date Time Temp Pulse Resp B/P Pulse Ox O2 Delivery O2 Flow Rate FiO2 02/10/17 08:05 97.8 95 20 132/63 98 Intake and Output 02/09/17 02/09/17 02/10/17 15:00 23:00 07:00 Intake Total 300 ml 1010 ml 500 ml Balance 300 ml 1010 ml 500 ml Results Result Diagram: 02/09/17 0549 02/10/17 0526 Results 24 hrs Laboratory Tests Test 02/09/17 15:17 02/09/17 17:48 02/09/17 21:20 02/10/17 05:26 Vancomycin Level Trough 19.8 Bedside Glucose 132 99 Sodium Level 137 Potassium Level 3.9 Chloride Level 102 Carbon Dioxide Level 26 Anion Gap 13 Blood Urea Nitrogen 10 Creatinine 0.84 Glucose Level 124 Calcium Level 8.5 Test 02/10/17 08:16 02/10/17 12:13 Bedside Glucose 156 133 Medications Medications Current Medications Ondansetron HCl (Zofran Inj) 4 mg Q6H PRN IV NAUSEA AND/OR VOMITING Last administered on 02/07/17 11:37; Admin Dose 4 MG; Start 02/04/17 at 19:30 Acetaminophen (Tylenol Tab) 650 mg Q6H PRN PO PAIN LEVEL 1-3 OR FEVER; Start 02/04/17 at 19:30 Morphine Sulfate (morphine) 2 mg Q4H PRN IV SEVERE PAIN LEVEL 7-10 Last administered on 02/09/17 23:51; Admin Dose 2 MG; Start 02/04/17 at 19:30 Famotidine (Pepcid Iv) 20 mg Q12 IV Last administered on 02/10/17 08:24; Admin Dose 20 MG; Start 02/04/17 at 21:00 Enoxaparin Sodium 30 mg 30 mg DAILY SC Last administered on 02/10/17 08:28; Admin Dose 30 MG; Start 02/05/17 at 09:00 Ceftriaxone Sodium (Rocephin) 50 ml @ 100 mls/hr DAILY IVPB Last administered on 02/10/17 08:24; Admin Dose 100 MLS/HR; Start 02/05/17 at 15:00 Aspirin (Halfprin) 81 mg DAILY PO Last administered on 02/10/17 08:24; Admin Dose 81 MG; Start 02/05/17 at 09:00 Atorvastatin Calcium (Lipitor) 40 mg HS PO Last administered on 02/09/17 21: 24; Admin Dose 40 MG; Start 02/05/17 at 21:00 Clopidogrel Bisulfate (plaVIX) 75 mg DAILY PO Last administered on 02/10/17 08:24; Admin Dose 75 MG; Start 02/05/17 at 09:00 Tramadol HCl (Ultram) 50 mg Q6H PRN PO PAIN LEVEL 1-5 Last administered on 03:40; Admin Dose 50 MG; Start 02/04/17 at 22:30 Clonidine (Catapres) 0.1 mg Q6H PRN PO ELEVATED BLOOD PRESSURE; Start at 23:00 Miscellaneous Information 1 ea NOTE XX ; Start 02/04/17 at 23:00 Glucose (Glutose) 15 gm Q15M PRN PO DECREASED GLUCOSE; Start 02/04/17 at 23:00 Glucose (Glutose) 22.5 gm Q15M PRN PO DECREASED GLUCOSE; Start 02/04/17 at 23: 00 Dextrose (D50w Syringe) 25 ml Q15M PRN IV DECREASED GLUCOSE; Start 02/04/17 at 23:00 Dextrose (D50w Syringe) 50 ml Q15M PRN IV DECREASED GLUCOSE; Start 02/04/17 at 23:00 Glucagon (Glucagen) 1 mg Q15M PRN IM DECREASED GLUCOSE; Start 02/04/17 at 23: 00 Glucose (Glutose) 15 gm Q15M PRN BUCCAL DECREASED GLUCOSE; Start 02/04/17 at 23:00 Diagnostic Test (Pha) (Accu-Chek) 1 ea 02 XX ; Start 02/06/17 at 02:00 Insulin Glargine (Lantus) 17 unit DAILY@20 SC Last administered on 02/09/17 21:23; Admin Dose 17 UNIT; Start 02/05/17 at 20:00 Fluconazole (Diflucan) 200 mg DAILY PO Last administered on 02/10/17 08:24; Admin Dose 200 MG; Start 02/06/17 at 09:00 Lidocaine (Lmx 4% Plus) 1 applic PRN PRN TOP W/ DRESSING CHANGES PRN PAIN; Start 02/06/17 at 08:00 Gentamicin Sulfate (Gentamicin 0.1% Oint) 1 applic DAILY TOP Last administered on 02/10/17 08:28; Admin Dose 1 APPLIC; Start 02/09/17 at 09:00 Sodium Hypochlorite 1 applic 1 applic DAILY TOP Last administered on 08:28; Admin Dose 1 APPLIC; Start 02/09/17 at 09:00 Vancomycin HCl (Vancocin) 250 ml @ 125 mls/hr Q12H IVPB Last administered on 02/10/17 05:39; Admin Dose 125 MLS/HR; Start 02/09/17 at 17:00 Cilostazol (Pletal) 50 mg BID PO ; Start 02/10/17 at 21:00 JOSELITO AGARWAL NP Feb 10, 2017 14:31
[2017-02-10 14:46] VITALS: BP 160/67; RESP 20
[2017-02-10 20:00] VITALS: BP 139/60; RESP 20
--- NOTE | 2017-02-10 20:31 | PN ---
Date/Time of Note Date/Time of Note DATE: 02/10/17 TIME: 20:29 Assessment/Plan Lines/Catheters IV Catheter Type (from Nrsg): Saline Lock Urinary Cath still in place: No Assessment/Plan Assessment/Plan - -Right third toe left great toe ulcers with osteomyelitis of the right foot toe , status post excisional debridement of the right third toe and the left big toe on 02/[address] Raya, podiatry. is following in infection disease consultation. Continue antibiotics per ID. -Severe peripheral arterial disease. Dr. San in vascular surgery consultation, vascular interventions planned. -Urinary tract infection per UA, continue antibiotics per ID. -Hypertension -Hyperlipidemia -Hyperglycemia in patient with diabetes mellitus type 2. hemoglobin A1c is 10.8. Continue Lantus and pre-meal NovoLog. Dr. Cornejo is following in endocrinology consultation. -Obesity Further recommendations based on clinical course. Plan of care discussed with Dr. Garcia Subjective 24 Hr Interval Summary Free Text/Dictation c/o Right shoulder pain- xray Right Shoulder- fu Exam/Review of Systems Vital Signs Vitals Vital Signs Date Time Temp Pulse Resp B/P Pulse Ox O2 Delivery O2 Flow Rate FiO2 02/10/17 14:46 98.8 52 20 160/67 96 Intake and Output 02/09/17 02/09/17 02/10/17 15:00 23:00 07:00 Intake Total 300 ml 1010 ml 500 ml Balance 300 ml 1010 ml 500 ml Results Result Diagram: 02/09/17 0549 02/10/17 0526 Results 24 hrs Laboratory Tests Test 02/09/17 21:20 02/10/17 05:26 02/10/17 08:16 02/10/17 12:13 Bedside Glucose 99 156 133 Sodium Level 137 Potassium Level 3.9 Chloride Level 102 Carbon Dioxide Level 26 Anion Gap 13 Blood Urea Nitrogen 10 Creatinine 0.84 Glucose Level 124 Calcium Level 8.5 Test 02/10/17 17:41 Bedside Glucose 111 Medications Medications Current Medications Ondansetron HCl (Zofran Inj) 4 mg Q6H PRN IV NAUSEA AND/OR VOMITING Last administered on 02/07/17t 11:37; Admin Dose 4 MG; Start 02/04/17 at 19:30 Acetaminophen (Tylenol Tab) 650 mg Q6H PRN PO PAIN LEVEL 1-3 OR FEVER; Start 02/04/17 at 19:30 Morphine Sulfate (morphine) 2 mg Q4H PRN IV SEVERE PAIN LEVEL 7-10 Last administered on 02/09/17 23:51; Admin Dose 2 MG; Start 02/04/17 at 19:30 Famotidine (Pepcid Iv) 20 mg Q12 IV Last administered on 02/10/17 08:24; Admin Dose 20 MG; Start 02/04/17 at 21:00 Enoxaparin Sodium 30 mg 30 mg DAILY SC Last administered on 02/10/17 08:28; Admin Dose 30 MG; Start 02/05/17 at 09:00 Ceftriaxone Sodium (Rocephin) 50 ml @ 100 mls/hr DAILY IVPB Last administered on 02/10/17 08:24; Admin Dose 100 MLS/HR; Start 02/05/17 at 15:00 Aspirin (Halfprin) 81 mg DAILY PO Last administered on 02/10/17 08:24; Admin Dose 81 MG; Start 02/05/17 at 09:00 Atorvastatin Calcium (Lipitor) 40 mg HS PO Last administered on 02/09/17 21: 24; Admin Dose 40 MG; Start 02/05/17 at 21:00 Clopidogrel Bisulfate (plaVIX) 75 mg DAILY PO Last administered on 02/10/17 08:24; Admin Dose 75 MG; Start 02/05/17 at 09:00 Tramadol HCl (Ultram) 50 mg Q6H PRN PO PAIN LEVEL 1-5 Last administered on 03:40; Admin Dose 50 MG; Start 02/04/17 at 22:30 Clonidine (Catapres) 0.1 mg Q6H PRN PO ELEVATED BLOOD PRESSURE; Start at 23:00 Miscellaneous Information 1 ea NOTE XX ; Start 02/04/17 at 23:00 Glucose (Glutose) 15 gm Q15M PRN PO DECREASED GLUCOSE; Start 02/04/17 at 23:00 Glucose (Glutose) 22.5 gm Q15M PRN PO DECREASED GLUCOSE; Start 02/04/17 at 23: 00 Dextrose (D50w Syringe) 25 ml Q15M PRN IV DECREASED GLUCOSE; Start 02/04/17 at 23:00 Dextrose (D50w Syringe) 50 ml Q15M PRN IV DECREASED GLUCOSE; Start 02/04/17 at 23:00 Glucagon (Glucagen) 1 mg Q15M PRN IM DECREASED GLUCOSE; Start 02/04/17 at 23: 00 Glucose (Glutose) 15 gm Q15M PRN BUCCAL DECREASED GLUCOSE; Start 02/04/17 at 23:00 Diagnostic Test (Pha) (Accu-Chek) 1 ea 02 XX ; Start 02/06/17 at 02:00 Insulin Glargine (Lantus) 17 unit DAILY@20 SC Last administered on 02/09/17 21:23; Admin Dose 17 UNIT; Start 02/05/17 at 20:00 Fluconazole (Diflucan) 200 mg DAILY PO Last administered on 02/10/17 08:24; Admin Dose 200 MG; Start 02/06/17 at 09:00 Lidocaine (Lmx 4% Plus) 1 applic PRN PRN TOP W/ DRESSING CHANGES PRN PAIN; Start 02/06/17 at 08:00 Gentamicin Sulfate (Gentamicin 0.1% Oint) 1 applic DAILY TOP Last administered on 02/10/17 08:28; Admin Dose 1 APPLIC; Start 02/09/17 at 09:00 Sodium Hypochlorite 1 applic 1 applic DAILY TOP Last administered on 08:28; Admin Dose 1 APPLIC; Start 02/09/17 at 09:00 Vancomycin HCl (Vancocin) 250 ml @ 125 mls/hr Q12H IVPB Last administered on 02/10/17 17:39; Admin Dose 125 MLS/HR; Start 02/09/17 at 17:00 Cilostazol (Pletal) 50 mg BID PO ; Start 02/10/17 at 21:00 Miscellaneous Information (*Rx Drug Level Order Reminder*) VANCO TROUGH @ 1, 600 ON ... ONCE ONCE XX ; Start 02/11/17 at 16:00; Stop 02/11/17 at 16:01 CALEB REINOSO Feb 10, 2017 20:31
--- NOTE | 2017-02-10 20:54 | RADRPT ---
PROCEDURE: XR Shoulder. CLINICAL INDICATION: Pain. TECHNIQUE: Right shoulder x-rays, 3 views. COMPARISON: None. FINDINGS: Bones: Bony mineralization appears slightly decreased. Bony cortices are contiguous. Adjacent ribs a re unremarkable. Joint(s): Intact. Mild degenerative changes of the acromioclavicular and glenohumeral joints are pre sent by joint space narrowing and mild osteophyte formation. Soft tissues: Grossly unremarkable. IMPRESSION: No evidence of acute osseous abnormality. Mild degenerative changes of the acromioclavicular and glenohumeral joints. RPTAT: HLST .Christine Oneill MD, MD Date Time Electronically viewed and signed by .Christine Oneill MD, on 02/10/2017 20:53 .T/
[2017-02-10] MEDS: CILOSTAZOL 100 MG TAB PO SCH (21:39)
[2017-02-10] MEDS: ATORVASTATIN 40 MG TAB PO SCH (21:41)
[2017-02-10] MEDS: INSULIN GLARGINE [LANtus] 3 ML PEN SC SCH (21:41)
[2017-02-10] MEDS: morphine 2 MG INJ IV PRN (21:50)
[2017-02-11] MEDS: ACCU-CHEK XX SCH (01:47)
[2017-02-11 03:18] VITALS: BP 134/63; RESP 17
[2017-02-11] MEDS: VANCOMYCIN 1 GM in NS 250 ML IVPB SCH ×2 (04:34→18:41)
[2017-02-11 07:48] VITALS: BP 122/59; RESP 17
[2017-02-11] MEDS: LINAGLIPTIN 5 MG TABLET PO SCH (08:59)
[2017-02-11] MEDS: metFORMIN 500 MG TAB PO SCH ×2 (08:59→17:49)
[2017-02-11] MEDS: CEFTRIAXONE 1 GM/50 ML (PMX) 50 ML IVPB SCH (09:00)
[2017-02-11] MEDS: FAMOTIDINE 20 MG INJ IV SCH ×2 (09:00→20:17)
[2017-02-11] MEDS: ASPIRIN (EC) 81 MG TAB PO SCH (09:00)
[2017-02-11] MEDS: CLOPIDOGREL 75 MG TAB PO SCH (09:00)
[2017-02-11] MEDS: FLUCONAZOLE 200 MG TAB PO SCH (09:00)
[2017-02-11] MEDS: CILOSTAZOL 100 MG TAB PO SCH ×2 (09:00→20:17)
[2017-02-11] MEDS: SODIUM HYPOCHLORITE 1/40% 1L IRRIG TOP SCH (09:00)
[2017-02-11] MEDS: GENTAMICIN 0.1% 15 GM OINT TOP SCH (09:01)
[2017-02-11] MEDS: INSULIN ASPART [NOVOLOG] 3 ML PEN SC SCH ×7 (09:03→20:16)
[2017-02-11] MEDS: ENOXAPARIN 30 MG/0.3 ML SYG SC SCH (09:03)
--- NOTE | 2017-02-11 11:57 | CONS ---
Date/Time of Note Date/Time of Note DATE: 02/11/17 TIME: 11:51 Assessment/Plan Assessment/Plan Problems: (1) Type 2 diabetes mellitus with foot ulcer Status: Chronic Comment: Adequate glycemic control on the current regimen; continue same regimen Qualifiers: Diabetes mellitus senior living insulin use: without moth exterminator use Qualified Code: E11.621 - Type 2 diabetes mellitus with foot ulcer, without long-term current use of insulin (2) Osteomyelitis of toe of right foot Status: Acute Comment: On antibiotics Consultation Date/Type/Reason Admit Date/Time Feb 04, 2017 at 17:34 Initial Consult Date 02/07/17 Type of Consultation: Endocrinology Reason for Consultation Diabetes mellitus type 2 in the setting of osteomyelitis Referring Provider: JOSE RANGEL 24 HR Interval Summary Constitutional: no complaints (No fevers chills or sweats no hypoglycemia) Exam/Review of Systems Vital Signs Vitals Vital Signs Date Time Temp Pulse Resp B/P Pulse Ox O2 Delivery O2 Flow Rate FiO2 02/11/17 07:48 98.5 98 17 122/59 96 Intake and Output 02/10/17 02/10/17 02/11/17 14:59 22:59 06:59 Intake Total 50 ml 890 ml 730 ml Output Total 800 ml Balance 50 ml 90 ml 730 ml Exam Constitutional: alert, oriented Neck: non-tender, supple Cardiovascular: nl pulses, regular rate and rhythm Gastrointestinal: nl liver, spleen, non-tender, soft Results Result Diagram: 02/09/17 0549 02/10/17 0526 Results 24 hrs Laboratory Tests Test 02/10/17 12:13 02/10/17 17:41 02/10/17 21:24 02/11/17 08:56 Bedside Glucose 133 111 96 178 Medications Medications Current Medications Ondansetron HCl (Zofran Inj) 4 mg Q6H PRN IV NAUSEA AND/OR VOMITING Last administered on 02/07/17 11:37; Admin Dose 4 MG; Start 02/04/17 at 19:30 Acetaminophen (Tylenol Tab) 650 mg Q6H PRN PO PAIN LEVEL 1-3 OR FEVER; Start 02/04/17 at 19:30 Morphine Sulfate (morphine) 2 mg Q4H PRN IV SEVERE PAIN LEVEL 7-10 Last administered on 02/10/17 21:50; Admin Dose 2 MG; Start 02/04/17 at 19:30 Famotidine (Pepcid Iv) 20 mg Q12 IV Last administered on 02/11/17 09:00; Admin Dose 20 MG; Start 02/04/17 at 21:00 Enoxaparin Sodium 30 mg 30 mg DAILY SC Last administered on 02/11/17 09:03; Admin Dose 30 MG; Start 02/05/17 at 09:00 Ceftriaxone Sodium (Rocephin) 50 ml @ 100 mls/hr DAILY IVPB Last administered on 02/11/17 09:00; Admin Dose 100 MLS/HR; Start 02/05/17 at 15:00 Aspirin (Halfprin) 81 mg DAILY PO Last administered on 02/11/17 09:00; Admin Dose 81 MG; Start 02/05/17 at 09:00 Atorvastatin Calcium (Lipitor) 40 mg HS PO Last administered on 02/10/17 21: 41; Admin Dose 40 MG; Start 02/05/17 at 21:00 Clopidogrel Bisulfate (plaVIX) 75 mg DAILY PO Last administered on 02/11/17 09:00; Admin Dose 75 MG; Start 02/05/17 at 09:00 Tramadol HCl (Ultram) 50 mg Q6H PRN PO PAIN LEVEL 1-5 Last administered on 03:40; Admin Dose 50 MG; Start 02/04/17 at 22:30 Clonidine (Catapres) 0.1 mg Q6H PRN PO ELEVATED BLOOD PRESSURE; Start at 23:00 Miscellaneous Information 1 ea NOTE XX ; Start 02/04/17 at 23:00 Glucose (Glutose) 15 gm Q15M PRN PO DECREASED GLUCOSE; Start 02/04/17 at 23:00 Glucose (Glutose) 22.5 gm Q15M PRN PO DECREASED GLUCOSE; Start 02/04/17 at 23: 00 Dextrose (D50w Syringe) 25 ml Q15M PRN IV DECREASED GLUCOSE; Start 02/04/17 at 23:00 Dextrose (D50w Syringe) 50 ml Q15M PRN IV DECREASED GLUCOSE; Start 02/04/17 at 23:00 Glucagon (Glucagen) 1 mg Q15M PRN IM DECREASED GLUCOSE; Start 02/04/17 at 23: 00 Glucose (Glutose) 15 gm Q15M PRN BUCCAL DECREASED GLUCOSE; Start 02/04/17 at 23:00 Diagnostic Test (Pha) (Accu-Chek) 1 ea 02 XX ; Start 02/06/17 at 02:00 Insulin Glargine (Lantus) 17 unit DAILY@20 SC Last administered on 02/10/17 21:41; Admin Dose 17 UNIT; Start 02/05/17 at 20:00 Fluconazole (Diflucan) 200 mg DAILY PO Last administered on 02/11/17 09:00; Admin Dose 200 MG; Start 02/06/17 at 09:00 Lidocaine (Lmx 4% Plus) 1 applic PRN PRN TOP W/ DRESSING CHANGES PRN PAIN; Start 02/06/17 at 08:00 Gentamicin Sulfate (Gentamicin 0.1% Oint) 1 applic DAILY TOP Last administered on 02/11/17 09:01; Admin Dose 1 APPLIC; Start 02/09/17 at 09:00 Sodium Hypochlorite 1 applic 1 applic DAILY TOP Last administered on 09:00; Admin Dose 1 APPLIC; Start 02/09/17 at 09:00 Vancomycin HCl (Vancocin) 250 ml @ 125 mls/hr Q12H IVPB Last administered on 02/11/17 04:34; Admin Dose 125 MLS/HR; Start 02/09/17 at 17:00 Cilostazol (Pletal) 50 mg BID PO Last administered on 02/11/17 09:00; Admin Dose 50 MG; Start 02/10/17 at 21:00 Miscellaneous Information (*Rx Drug Level Order Reminder*) VANCO TROUGH @ 1, 600 ON ... ONCE ONCE XX ; Start 02/11/17 at 16:00; Stop 02/11/17 at 16:01 JOSH CUNNINGHAM MD Feb 11, 2017 11:57
--- NOTE | 2017-02-11 12:16 | CONS ---
Date/Time of Note Date/Time of Note DATE: 02/11/17 TIME: 12:16 Assessment/Plan Assessment/Plan Chief Complaint/Hosp Course ID PROGRESS NOTE CURRENT ABX: =>Vanco IV + Ceftriaxone * Resting after lunch, calm, no complaints offered * NO fevers, WBC down, without respiratory distress * 02/08/17 WOUND CX: GRAM STAIN Final POLYMORPH. LEUKOCYTE NONE SEEN // NO ORGANISM SEEN * WOUND CULTURE Final No growth after 3 days * PHYSICAL EXAMINATION: GENERAL: Afebrile, VSS, NAD HEENT: Unremarkable NECK: Full ROM CHEST: Equal chest rise bilaterally, no distress HEART: RRR pulse ABDOMEN: Soft EXT: Warm, no edema, moves extremities => Bilateral feet DSG C/D/I SKIN: No rash, no diaphoresis ID ASSESSMENT: 76 yo F admit with: 1. SIRS -> ESR 55 + DKA Blood glucose 427 on admission, lactic acid elevated to 1.8 (high norm) 2. Bilateral diabetic foot ulcerations with exposed bone of the left toe, status post incision and drainage. * 02/08/17 WOUND CX: GRAM STAIN Final POLYMORPH. LEUKOCYTE NONE SEEN // NO ORGANISM SEEN * WOUND CULTURE Final No growth after 3 days 3. Diabetes-> A1c 10.8 4. Diabetes neuropathy. 5. Positive urinalysis on admission, urine culture not done. ( )MRSA Nares ABX ALLERGIES: NKDA INVASIVES: PIV CURRENT ABX: => Vanco IV + Ceftriaxone ID RECOMMENDATIONS/PLAN: 1. Continue current ABX 2. Check MRSA Nares screen . . Problems: Consultation Date/Type/Reason Admit Date/Time Feb 04, 2017 at 17:34 Initial Consult Date 02/07/17 Type of Consultation: ID Referring Provider: JOSE RANGEL Exam/Review of Systems Vital Signs Vitals Vital Signs Date Time Temp Pulse Resp B/P Pulse Ox O2 Delivery O2 Flow Rate FiO2 02/11/17 07:48 98.5 98 17 122/59 96 Intake and Output 02/10/17 02/10/17 02/11/17 15:00 23:00 07:00 Intake Total 50 ml 890 ml 730 ml Output Total 800 ml Balance 50 ml 90 ml 730 ml Results Result Diagram: 02/09/17 0549 02/10/17 0526 Results 24 hrs Laboratory Tests Test 02/10/17 17:41 02/10/17 21:24 02/11/17 08:56 Bedside Glucose 111 96 178 Medications Medications Current Medications Ondansetron HCl (Zofran Inj) 4 mg Q6H PRN IV NAUSEA AND/OR VOMITING Last administered on 02/07/17 11:37; Admin Dose 4 MG; Start 02/04/17 at 19:30 Acetaminophen (Tylenol Tab) 650 mg Q6H PRN PO PAIN LEVEL 1-3 OR FEVER; Start 02/04/17 at 19:30 Morphine Sulfate (morphine) 2 mg Q4H PRN IV SEVERE PAIN LEVEL 7-10 Last administered on 02/10/17 21:50; Admin Dose 2 MG; Start 02/04/17 at 19:30 Famotidine (Pepcid Iv) 20 mg Q12 IV Last administered on 02/11/17 09:00; Admin Dose 20 MG; Start 02/04/17 at 21:00 Enoxaparin Sodium 30 mg 30 mg DAILY SC Last administered on 02/11/17 09:03; Admin Dose 30 MG; Start 02/05/17 at 09:00 Ceftriaxone Sodium (Rocephin) 50 ml @ 100 mls/hr DAILY IVPB Last administered on 02/11/17 09:00; Admin Dose 100 MLS/HR; Start 02/05/17 at 15:00 Aspirin (Halfprin) 81 mg DAILY PO Last administered on 02/11/17 09:00; Admin Dose 81 MG; Start 02/05/17 at 09:00 Atorvastatin Calcium (Lipitor) 40 mg HS PO Last administered on 02/10/17 21: 41; Admin Dose 40 MG; Start 02/05/17 at 21:00 Clopidogrel Bisulfate (plaVIX) 75 mg DAILY PO Last administered on 02/11/17 09:00; Admin Dose 75 MG; Start 02/05/17 at 09:00 Tramadol HCl (Ultram) 50 mg Q6H PRN PO PAIN LEVEL 1-5 Last administered on 03:40; Admin Dose 50 MG; Start 02/04/17 at 22:30 Clonidine (Catapres) 0.1 mg Q6H PRN PO ELEVATED BLOOD PRESSURE; Start at 23:00 Miscellaneous Information 1 ea NOTE XX ; Start 02/04/17 at 23:00 Glucose (Glutose) 15 gm Q15M PRN PO DECREASED GLUCOSE; Start 02/04/17 at 23:00 Glucose (Glutose) 22.5 gm Q15M PRN PO DECREASED GLUCOSE; Start 02/04/17 at 23: 00 Dextrose (D50w Syringe) 25 ml Q15M PRN IV DECREASED GLUCOSE; Start 02/04/17 at 23:00 Dextrose (D50w Syringe) 50 ml Q15M PRN IV DECREASED GLUCOSE; Start 02/04/17 at 23:00 Glucagon (Glucagen) 1 mg Q15M PRN IM DECREASED GLUCOSE; Start 02/04/17 at 23: 00 Glucose (Glutose) 15 gm Q15M PRN BUCCAL DECREASED GLUCOSE; Start 02/04/17 at 23:00 Diagnostic Test (Pha) (Accu-Chek) 1 ea 02 XX ; Start 02/06/17 at 02:00 Insulin Glargine (Lantus) 17 unit DAILY@20 SC Last administered on 02/10/17 21:41; Admin Dose 17 UNIT; Start 02/05/17 at 20:00 Fluconazole (Diflucan) 200 mg DAILY PO Last administered on 02/11/17 09:00; Admin Dose 200 MG; Start 02/06/17 at 09:00 Lidocaine (Lmx 4% Plus) 1 applic PRN PRN TOP W/ DRESSING CHANGES PRN PAIN; Start 02/06/17 at 08:00 Gentamicin Sulfate (Gentamicin 0.1% Oint) 1 applic DAILY TOP Last administered on 02/11/17 09:01; Admin Dose 1 APPLIC; Start 02/09/17 at 09:00 Sodium Hypochlorite 1 applic 1 applic DAILY TOP Last administered on 09:00; Admin Dose 1 APPLIC; Start 02/09/17 at 09:00 Vancomycin HCl (Vancocin) 250 ml @ 125 mls/hr Q12H IVPB Last administered on 02/11/17 04:34; Admin Dose 125 MLS/HR; Start 02/09/17 at 17:00 Cilostazol (Pletal) 50 mg BID PO Last administered on 02/11/17 09:00; Admin Dose 50 MG; Start 02/10/17 at 21:00 Miscellaneous Information (*Rx Drug Level Order Reminder*) VANCO TROUGH @ 1, 600 ON ... ONCE ONCE XX ; Start 02/11/17 at 16:00; Stop 02/11/17 at 16:01 VINAYAK PRESTON NP Feb 11, 2017 12:16
--- NOTE | 2017-02-11 12:57 | PN ---
Date/Time of Note Date/Time of Note DATE: 02/11/17 TIME: 12:37 Assessment/Plan VTE Prophylaxis VTE Prophylaxis Intervention: other Lines/Catheters IV Catheter Type (from Nrs): Saline Lock Urinary Cath still in place: No Assessment/Plan Assessment/Plan - Pain in right shoulder- better with pain med - Xray showed no fracture, degenerative changes noted -Right third toe left great toe ulcers with osteomyelitis of the right foot toe , status post excisional debridement of the right third toe and the left big toe on 02/[address] Raya, podiatry. is following in infection disease consultation. Continue antibiotics per ID. -Severe peripheral arterial disease. Dr. San in vascular surgery consultation, vascular interventions planned. -Urinary tract infection per UA, continue antibiotics per ID. -Hypertension -Hyperlipidemia -Hyperglycemia in patient with diabetes mellitus type 2. hemoglobin A1c is 10.8. Continue Lantus and pre-meal NovoLog. Dr. Cornejo is following in endocrinology consultation. -Obesity - weight managment Further recommendations based on clinical course. Plan of care discussed with Dr. Garcia Subjective 24 Hr Interval Summary Free Text/Dictation sitting up in bed, rtight shoilder xray is neg for any fracture. Shasih Martini is at bed side- all Qs answered. No new events reported from last night - dw staff Respiratory: no complaints Cardiovascular: no complaints Gastrointestinal: no complaints Genitourinary: no complaints Musculoskeletal: bone/joint pain, restricted range of motion Neurologic: no complaints Exam/Review of Systems Vital Signs Vitals Vital Signs Date Time Temp Pulse Resp B/P Pulse Ox O2 Delivery O2 Flow Rate FiO2 02/11/17 07:48 98.5 98 17 122/59 96 Intake and Output 02/10/17 02/10/17 02/11/17 15:00 23:00 07:00 Intake Total 50 ml 890 ml 730 ml Output Total 800 ml Balance 50 ml 90 ml 730 ml Exam Constitutional: alert, well developed Respiratory: clear to auscultation Cardiovascular: nl pulses Gastrointestinal: non-tender, soft Musculoskeletal: nl extremities to inspection Extremities: normal pulses Neurological: nl mental status, nl speech Results Result Diagram: 02/09/17 0549 02/10/17 0526 Results 24 hrs Laboratory Tests Test 02/10/17 17:41 02/10/17 21:24 02/11/17 08:56 Bedside Glucose 111 96 178 Medications Medications Current Medications Ondansetron HCl (Zofran Inj) 4 mg Q6H PRN IV NAUSEA AND/OR VOMITING Last administered on 02/07/17 11:37; Admin Dose 4 MG; Start 02/04/17 at 19:30 Acetaminophen (Tylenol Tab) 650 mg Q6H PRN PO PAIN LEVEL 1-3 OR FEVER; Start 02/04/17 at 19:30 Morphine Sulfate (morphine) 2 mg Q4H PRN IV SEVERE PAIN LEVEL 7-10 Last administered on 02/10/17 21:50; Admin Dose 2 MG; Start 02/04/17 at 19:30 Famotidine (Pepcid Iv) 20 mg Q12 IV Last administered on 02/11/17 09:00; Admin Dose 20 MG; Start 02/04/17 at 21:00 Enoxaparin Sodium 30 mg 30 mg DAILY SC Last administered on 02/11/17 09:03; Admin Dose 30 MG; Start 02/05/17 at 09:00 Ceftriaxone Sodium (Rocephin) 50 ml @ 100 mls/hr DAILY IVPB Last administered on 02/11/17 09:00; Admin Dose 100 MLS/HR; Start 02/05/17 at 15:00 Aspirin (Halfprin) 81 mg DAILY PO Last administered on 02/11/17 09:00; Admin Dose 81 MG; Start 02/05/17 at 09:00 Atorvastatin Calcium (Lipitor) 40 mg HS PO Last administered on 02/10/17 21: 41; Admin Dose 40 MG; Start 02/05/17 at 21:00 Clopidogrel Bisulfate (plaVIX) 75 mg DAILY PO Last administered on 02/11/17 09:00; Admin Dose 75 MG; Start 02/05/17 at 09:00 Tramadol HCl (Ultram) 50 mg Q6H PRN PO PAIN LEVEL 1-5 Last administered on 03:40; Admin Dose 50 MG; Start 02/04/17 at 22:30 Clonidine (Catapres) 0.1 mg Q6H PRN PO ELEVATED BLOOD PRESSURE; Start at 23:00 Miscellaneous Information 1 ea NOTE XX ; Start 02/04/17 at 23:00 Glucose (Glutose) 15 gm Q15M PRN PO DECREASED GLUCOSE; Start 02/04/17 at 23:00 Glucose (Glutose) 22.5 gm Q15M PRN PO DECREASED GLUCOSE; Start 02/04/17 at 23: 00 Dextrose (D50w Syringe) 25 ml Q15M PRN IV DECREASED GLUCOSE; Start 02/04/17 at 23:00 Dextrose (D50w Syringe) 50 ml Q15M PRN IV DECREASED GLUCOSE; Start 02/04/17 at 23:00 Glucagon (Glucagen) 1 mg Q15M PRN IM DECREASED GLUCOSE; Start 02/04/17 at 23: 00 Glucose (Glutose) 15 gm Q15M PRN BUCCAL DECREASED GLUCOSE; Start 02/04/17 at 23:00 Diagnostic Test (Pha) (Accu-Chek) 1 ea 02 XX ; Start 02/06/17 at 02:00 Insulin Glargine (Lantus) 17 unit DAILY@20 SC Last administered on 02/10/17 21:41; Admin Dose 17 UNIT; Start 02/05/17 at 20:00 Fluconazole (Diflucan) 200 mg DAILY PO Last administered on 02/11/17 09:00; Admin Dose 200 MG; Start 02/06/17 at 09:00 Lidocaine (Lmx 4% Plus) 1 applic PRN PRN TOP W/ DRESSING CHANGES PRN PAIN; Start 02/06/17 at 08:00 Gentamicin Sulfate (Gentamicin 0.1% Oint) 1 applic DAILY TOP Last administered on 02/11/17 09:01; Admin Dose 1 APPLIC; Start 02/09/17 at 09:00 Sodium Hypochlorite 1 applic 1 applic DAILY TOP Last administered on 09:00; Admin Dose 1 APPLIC; Start 02/09/17 at 09:00 Vancomycin HCl (Vancocin) 250 ml @ 125 mls/hr Q12H IVPB Last administered on 02/11/17 04:34; Admin Dose 125 MLS/HR; Start 02/09/17 at 17:00 Cilostazol (Pletal) 50 mg BID PO Last administered on 02/11/17 09:00; Admin Dose 50 MG; Start 02/10/17 at 21:00 Miscellaneous Information (*Rx Drug Level Order Reminder*) VANCO TROUGH @ 1, 600 ON ... ONCE ONCE XX ; Start 02/11/17 at 16:00; Stop 02/11/17 at 16:01 Procedures Procedures PROCEDURE: XR Shoulder. CLINICAL INDICATION: Pain. TECHNIQUE: Right shoulder x-rays, 3 views. COMPARISON: None. FINDINGS: Bones: Bony mineralization appears slightly decreased. Bony cortices are contiguous. Adjacent ribs are unremarkable. Joint(s): Intact. Mild degenerative changes of the acromioclavicular and glenohumeral joints are present by joint space narrowing and mild osteophyte formation. Soft tissues: Grossly unremarkable. IMPRESSION: No evidence of acute osseous abnormality. Mild degenerative changes of the acromioclavicular and glenohumeral joints. CALEB REINOSO Feb 11, 2017 12:54
[2017-02-11 14:00] VITALS: BP 144/63
[2017-02-11 14:52] LABS: CALCIUM 8.9 mg/dl (8.4-10.2); CREATININE 1.04 mg/dl (0.44-1.00); POTASSIUM 4.5 mmol/L (3.5-5.1)
[2017-02-11 15:41] LABS: BASOPHILS % 0.3 % (0.0-2.0); EOSINOPHILS % 0.6 % (0.0-7.0); HEMATOCRIT 31.4 % (37.0-47.0); HEMOGLOBIN 10.7 g/dl (12.0-16.0); LYMPHOCYTES # 1.1 10^3/ul (0.8-2.9); MEAN CORPUSCULAR HEMOGLOBIN 30.1 pg (29.0-33.0); MEAN CORPUSCULAR HGB CONC 34.1 g/dl (32.0-37.0); MEAN CORPUSCULAR VOLUME 88.5 fl (82.0-101.0); MEAN PLATELET VOLUME 10.1 fl (7.4-10.4); MONOCYTE # 0.7 10^3/ul (0.3-0.9); NEUTROPHIL # 4.6 10^3/ul (1.6-7.5); NEUTROPHILS % 70.8 % (39.0-77.0); PLATELET COUNT 238 10^3/UL (140-415); RED BLOOD COUNT 3.55 10^6/ul (4.20-5.40); RED CELL DISTRIBUTION WIDTH 11.9 % (11.5-14.5); WHITE BLOOD COUNT 6.5 10^3/ul (4.8-10.8)
[2017-02-11 20:00] VITALS: BP 110/55; RESP 20
[2017-02-11] MEDS: INSULIN GLARGINE [LANtus] 3 ML PEN SC SCH (20:15)
[2017-02-11] MEDS: ATORVASTATIN 40 MG TAB PO SCH (20:17)
[2017-02-12 02:00] VITALS: BP 131/63; RESP 19
[2017-02-12] MEDS: ACCU-CHEK XX SCH (02:00)
[2017-02-12] MEDS: VANCOMYCIN 1 GM in NS 250 ML IVPB SCH (05:29)
[2017-02-12 06:10] LABS: BASOPHILS % 0.3 % (0.0-2.0); EOSINOPHILS # 0.1 10^3/ul (0.0-0.5); EOSINOPHILS % 1.3 % (0.0-7.0); HEMATOCRIT 28.9 % (37.0-47.0); HEMOGLOBIN 9.8 g/dl (12.0-16.0); LYMPHOCYTES # 1.3 10^3/ul (0.8-2.9); LYMPHOCYTES % 21.2 % (15.0-51.0); MEAN CORPUSCULAR HEMOGLOBIN 29.5 pg (29.0-33.0); MEAN CORPUSCULAR HGB CONC 33.9 g/dl (32.0-37.0); MEAN PLATELET VOLUME 9.8 fl (7.4-10.4); MONOCYTE # 0.7 10^3/ul (0.3-0.9); MONOCYTES % 11.2 % (0.0-11.0); NEUTROPHILS % 65.7 % (39.0-77.0); PLATELET COUNT 216 10^3/UL (140-415); RED BLOOD COUNT 3.32 10^6/ul (4.20-5.40); RED CELL DISTRIBUTION WIDTH 11.9 % (11.5-14.5); WHITE BLOOD COUNT 6.1 10^3/ul (4.8-10.8)
[2017-02-12 06:52] LABS: CALCIUM 8.5 mg/dl (8.4-10.2); CREATININE 1.12 mg/dl (0.44-1.00); POTASSIUM 4.4 mmol/L (3.5-5.1)
[2017-02-12] MEDS: INSULIN ASPART [NOVOLOG] 3 ML PEN SC SCH ×7 (08:00→20:29)
[2017-02-12] MEDS: LINAGLIPTIN 5 MG TABLET PO SCH (08:06)
[2017-02-12] MEDS: metFORMIN 500 MG TAB PO SCH ×2 (08:06→17:54)
[2017-02-12] MEDS: CEFTRIAXONE 1 GM/50 ML (PMX) 50 ML IVPB SCH (08:14)
[2017-02-12 08:15] VITALS: BP 106/47; RESP 16
[2017-02-12] MEDS: FLUCONAZOLE 200 MG TAB PO SCH (08:15)
[2017-02-12] MEDS: ENOXAPARIN 30 MG/0.3 ML SYG SC SCH (08:15)
[2017-02-12] MEDS: CLOPIDOGREL 75 MG TAB PO SCH (08:15)
[2017-02-12] MEDS: FAMOTIDINE 20 MG INJ IV SCH ×2 (08:15→20:18)
[2017-02-12] MEDS: ASPIRIN (EC) 81 MG TAB PO SCH (08:15)
[2017-02-12] MEDS: CILOSTAZOL 100 MG TAB PO SCH ×2 (08:16→20:18)
[2017-02-12] MEDS: SODIUM HYPOCHLORITE 1/40% 1L IRRIG TOP SCH (08:16)
[2017-02-12] MEDS: GENTAMICIN 0.1% 15 GM OINT TOP SCH (08:17)
--- NOTE | 2017-02-12 15:18 | CONS ---
Date/Time of Note Date/Time of Note DATE: 02/12/17 TIME: 15:17 Assessment/Plan Assessment/Plan Chief Complaint/Hosp Course SUBJECTIVE: No events overnight. Awake, in no distress, afebrile. MICROBIOLOGY: Wound culture pending ANTIMICROBIALS: Patient is on: 1. Vancomycin 2. Rocephin. 3. Diflucan PHYSICAL EXAMINATION: GENERAL: Well-developed elderly woman in no distress. HEENT: Head atraumatic, normocephalic. Sclerae anicteric. Buccal mucosa pink. NECK: Supple. CHEST: Rise symmetrical. Breath sounds clear. HEART: S1, S2. ABDOMEN: Soft. Bowel tones present. ASSESSMENT: 1. Bilateral diabetic foot ulcerations with exposed bone of the left toe, status post incision and drainage. 2. Diabetes. 3. Diabetes neuropathy. 4. Positive urinalysis on admission PLAN: The patient remains stable. All cultures negative. Continue present care, antibiotics. Follow podiatry recommendations . Most likely patient will require long-term IV antibiotics for osteomyelitis of the toe. staff Problems: Consultation Date/Type/Reason Admit Date/Time Feb 04, 2017 at 17:34 Initial Consult Date 02/07/17 Type of Consultation: ID Referring Provider: JOSE RANGEL Exam/Review of Systems Vital Signs Vitals Vital Signs Date Time Temp Pulse Resp B/P Pulse Ox O2 Delivery O2 Flow Rate FiO2 02/12/17 08:15 98.6 51 16 106/47 99 Intake and Output 02/11/17 02/11/17 02/12/17 15:00 23:00 07:00 Intake Total 50 ml 1210 ml 350 ml Balance 50 ml 1210 ml 350 ml Results Result Diagram: 02/12/17 0532 02/12/17 0532 Results 24 hrs Laboratory Tests Test 02/11/17 16:38 02/11/17 17:29 02/11/17 20:13 02/12/17 01:56 Vancomycin Level Trough 19.0 Bedside Glucose 178 188 117 Test 02/12/17 05:32 02/12/17 08:05 02/12/17 11:57 White Blood Count 6.1 Red Blood Count 3.32 L Hemoglobin 9.8 L Hematocrit 28.9 L Mean Corpuscular Volume 87.0 Mean Corpuscular Hemoglobin 29.5 Mean Corpuscular Hemoglobin Concent 33.9 Red Cell Distribution Width 11.9 Platelet Count 216 Mean Platelet Volume 9.8 Neutrophils % 65.7 Lymphocytes % 21.2 Monocytes % 11.2 H Eosinophils % 1.3 Basophils % 0.3 Nucleated Red Blood Cells % 0.0 Neutrophils # 4.0 Lymphocytes # 1.3 Monocytes # 0.7 Eosinophils # 0.1 Basophils # 0.0 Nucleated Red Blood Cells # 0.0 Sodium Level 138 Potassium Level 4.4 Chloride Level 104 Carbon Dioxide Level 27 Anion Gap 11 Blood Urea Nitrogen 14 Creatinine 1.12 H Glucose Level 132 Calcium Level 8.5 Bedside Glucose 138 133 Medications Medications Current Medications Ondansetron HCl (Zofran Inj) 4 mg Q6H PRN IV NAUSEA AND/OR VOMITING Last administered on 02/07/17 11:37; Admin Dose 4 MG; Start 02/04/17 at 19:30 Acetaminophen (Tylenol Tab) 650 mg Q6H PRN PO PAIN LEVEL 1-3 OR FEVER; Start 02/04/17 at 19:30 Morphine Sulfate (morphine) 2 mg Q4H PRN IV SEVERE PAIN LEVEL 7-10 Last administered on 02/10/17 21:50; Admin Dose 2 MG; Start 02/04/17 at 19:30 Famotidine (Pepcid Iv) 20 mg Q12 IV Last administered on 02/12/17 08:15; Admin Dose 20 MG; Start 02/04/17 at 21:00 Enoxaparin Sodium 30 mg 30 mg DAILY SC Last administered on 02/12/17 08:15; Admin Dose 30 MG; Start 02/05/17 at 09:00 Ceftriaxone Sodium (Rocephin) 50 ml @ 100 mls/hr DAILY IVPB Last administered on 02/12/17 08:14; Admin Dose 100 MLS/HR; Start 02/05/17 at 15:00 Aspirin (Halfprin) 81 mg DAILY PO Last administered on 02/12/17 08:15; Admin Dose 81 MG; Start 02/05/17 at 09:00 Atorvastatin Calcium (Lipitor) 40 mg HS PO Last administered on 02/11/17 20: 17; Admin Dose 40 MG; Start 02/05/17 at 21:00 Clopidogrel Bisulfate (plaVIX) 75 mg DAILY PO Last administered on 02/12/17 08:15; Admin Dose 75 MG; Start 02/05/17 at 09:00 Tramadol HCl (Ultram) 50 mg Q6H PRN PO PAIN LEVEL 1-5 Last administered on 03:40; Admin Dose 50 MG; Start 02/04/17 at 22:30 Clonidine (Catapres) 0.1 mg Q6H PRN PO ELEVATED BLOOD PRESSURE; Start at 23:00 Miscellaneous Information 1 ea NOTE XX ; Start 02/04/17 at 23:00 Glucose (Glutose) 15 gm Q15M PRN PO DECREASED GLUCOSE; Start 02/04/17 at 23:00 Glucose (Glutose) 22.5 gm Q15M PRN PO DECREASED GLUCOSE; Start 02/04/17 at 23: 00 Dextrose (D50w Syringe) 25 ml Q15M PRN IV DECREASED GLUCOSE; Start 02/04/17 at 23:00 Dextrose (D50w Syringe) 50 ml Q15M PRN IV DECREASED GLUCOSE; Start 02/04/17 at 23:00 Glucagon (Glucagen) 1 mg Q15M PRN IM DECREASED GLUCOSE; Start 02/04/17 at 23: 00 Glucose (Glutose) 15 gm Q15M PRN BUCCAL DECREASED GLUCOSE; Start 02/04/17 at 23:00 Diagnostic Test (Pha) (Accu-Chek) 1 ea 02 XX ; Start 02/06/17 at 02:00 Insulin Glargine (Lantus) 17 unit DAILY@20 SC Last administered on 02/11/17 20:15; Admin Dose 17 UNIT; Start 02/05/17 at 20:00 Fluconazole (Diflucan) 200 mg DAILY PO Last administered on 02/12/17 08:15; Admin Dose 200 MG; Start 02/06/17 at 09:00 Lidocaine (Lmx 4% Plus) 1 applic PRN PRN TOP W/ DRESSING CHANGES PRN PAIN; Start 02/06/17 at 08:00 Gentamicin Sulfate (Gentamicin 0.1% Oint) 1 applic DAILY TOP Last administered on 02/12/17 08:17; Admin Dose 1 APPLIC; Start 02/09/17 at 09:00 Sodium Hypochlorite (Dakin'S (Dilute 1/40%)) 1 applic DAILY TOP Last administered on 02/12/17 08:16; Admin Dose 1 APPLIC; Start 02/09/17 at 09:00 Cilostazol 50 mg 50 mg BID PO Last administered on 02/12/17t 08:16; Admin Dose 50 MG; Start 02/10/17 at 21:00 Vancomycin HCl/ Sodium Chloride (Vancocin/NS) 250 ml @ 83.333 mls/ hr Q24H IVPB ; Start 02/13/17 at 06:00 JOSELITO AGARWAL NP Feb 12, 2017 15:18
[2017-02-12] MEDS: morphine 2 MG INJ IV PRN (16:00)
--- NOTE | 2017-02-12 18:08 | PN ---
Date/Time of Note Date/Time of Note DATE: 02/12/17 TIME: 18:08 Assessment/Plan VTE Prophylaxis VTE Prophylaxis Intervention: LMWH Lines/Catheters IV [facility] Urinary Cath still in place: No Assessment/Plan Chief Complaint/Hosp Course Assessment/Plan -Right third toe left great toe ulcers with osteomyelitis of the right foot toe , status post excisional debridement of the right third toe and the left big toe on 02/[address] Raya, podiatry. is following in infection disease consultation. Continue antibiotics per ID. -Severe peripheral arterial disease. Dr. San in vascular surgery consultation, vascular interventions planned. -Urinary tract infection per UA, continue antibiotics per ID. -Hypertension -Hyperlipidemia -Hyperglycemia in patient with diabetes mellitus type 2. hemoglobin A1c is 10.8. Continue Lantus and pre-meal NovoLog. Dr. Cornejo is following in endocrinology consultation. -Obesity Further recommendations based on clinical course. Plan of care discussed with Dr. Garcia Problems: Exam/Review of Systems Vital Signs Vitals Vital Signs Date Time Temp Pulse Resp B/P Pulse Ox O2 Delivery O2 Flow Rate FiO2 02/12/17 08:15 98.6 51 16 106/47 99 Intake and Output 02/11/17 02/11/17 02/12/17 15:00 23:00 07:00 Intake Total 50 ml 1210 ml 350 ml Balance 50 ml 1210 ml 350 ml Exam Constitutional: alert, oriented Respiratory: normal air movement Cardiovascular: nl pulses Gastrointestinal: non-tender, soft Musculoskeletal: nl extremities to inspection Extremities: normal pulses. Results Result Diagram: 02/12/17 0532 02/12/17 0532 Results 24 hrs Laboratory Tests Test 02/11/17 20:13 02/12/17 01:56 02/12/17 05:32 02/12/17 08:05 Bedside Glucose 188 117 138 White Blood Count 6.1 Red Blood Count 3.32 L Hemoglobin 9.8 L Hematocrit 28.9 L Mean Corpuscular Volume 87.0 Mean Corpuscular Hemoglobin 29.5 Mean Corpuscular Hemoglobin Concent 33.9 Red Cell Distribution Width 11.9 Platelet Count 216 Mean Platelet Volume 9.8 Neutrophils % 65.7 Lymphocytes % 21.2 Monocytes % 11.2 H Eosinophils % 1.3 Basophils % 0.3 Nucleated Red Blood Cells % 0.0 Neutrophils # 4.0 Lymphocytes # 1.3 Monocytes # 0.7 Eosinophils # 0.1 Basophils # 0.0 Nucleated Red Blood Cells # 0.0 Sodium Level 138 Potassium Level 4.4 Chloride Level 104 Carbon Dioxide Level 27 Anion Gap 11 Blood Urea Nitrogen 14 Creatinine 1.12 H Glucose Level 132 Calcium Level 8.5 Test 02/12/17 11:57 02/12/17 17:53 Bedside Glucose 133 106 Medications Medications Current Medications Ondansetron HCl (Zofran Inj) 4 mg Q6H PRN IV NAUSEA AND/OR VOMITING Last administered on 02/07/17 11:37; Admin Dose 4 MG; Start 02/04/17 at 19:30 Acetaminophen (Tylenol Tab) 650 mg Q6H PRN PO PAIN LEVEL 1-3 OR FEVER; Start 02/04/17 at 19:30 Morphine Sulfate (morphine) 2 mg Q4H PRN IV SEVERE PAIN LEVEL 7-10 Last administered on 02/12/17 16:00; Admin Dose 2 MG; Start 02/04/17 at 19:30 Famotidine (Pepcid Iv) 20 mg Q12 IV Last administered on 02/12/17 08:15; Admin Dose 20 MG; Start 02/04/17 at 21:00 Enoxaparin Sodium 30 mg 30 mg DAILY SC Last administered on 02/12/17 08:15; Admin Dose 30 MG; Start 02/05/17 at 09:00 Ceftriaxone Sodium (Rocephin) 50 ml @ 100 mls/hr DAILY IVPB Last administered on 02/12/17 08:14; Admin Dose 100 MLS/HR; Start 02/05/17 at 15:00 Aspirin (Halfprin) 81 mg DAILY PO Last administered on 02/12/17 08:15; Admin Dose 81 MG; Start 02/05/17 at 09:00 Atorvastatin Calcium (Lipitor) 40 mg HS PO Last administered on 02/11/17 20: 17; Admin Dose 40 MG; Start 02/05/17 at 21:00 Clopidogrel Bisulfate (plaVIX) 75 mg DAILY PO Last administered on 02/12/17 08:15; Admin Dose 75 MG; Start 02/05/17 at 09:00 Tramadol HCl (Ultram) 50 mg Q6H PRN PO PAIN LEVEL 1-5 Last administered on 03:40; Admin Dose 50 MG; Start 02/04/17 at 22:30 Clonidine (Catapres) 0.1 mg Q6H PRN PO ELEVATED BLOOD PRESSURE; Start at 23:00 Miscellaneous Information 1 ea NOTE XX ; Start 02/04/17 at 23:00 Glucose (Glutose) 15 gm Q15M PRN PO DECREASED GLUCOSE; Start 02/04/17 at 23:00 Glucose (Glutose) 22.5 gm Q15M PRN PO DECREASED GLUCOSE; Start 02/04/17 at 23: 00 Dextrose (D50w Syringe) 25 ml Q15M PRN IV DECREASED GLUCOSE; Start 02/04/17 at 23:00 Dextrose (D50w Syringe) 50 ml Q15M PRN IV DECREASED GLUCOSE; Start 02/04/17 at 23:00 Glucagon (Glucagen) 1 mg Q15M PRN IM DECREASED GLUCOSE; Start 02/04/17 at 23: 00 Glucose (Glutose) 15 gm Q15M PRN BUCCAL DECREASED GLUCOSE; Start 02/04/17 at 23:00 Diagnostic Test (Pha) (Accu-Chek) 1 ea 02 XX ; Start 02/06/17 at 02:00 Insulin Glargine (Lantus) 17 unit DAILY@20 SC Last administered on 02/11/17 20:15; Admin Dose 17 UNIT; Start 02/05/17 at 20:00 Fluconazole (Diflucan) 200 mg DAILY PO Last administered on 02/12/17 08:15; Admin Dose 200 MG; Start 02/06/17 at 09:00 Lidocaine (Lmx 4% Plus) 1 applic PRN PRN TOP W/ DRESSING CHANGES PRN PAIN; Start 02/06/17 at 08:00 Gentamicin Sulfate (Gentamicin 0.1% Oint) 1 applic DAILY TOP Last administered on 02/12/17 08:17; Admin Dose 1 APPLIC; Start 02/09/17 at 09:00 Sodium Hypochlorite (Dakin'S (Dilute 1/40%)) 1 applic DAILY TOP Last administered on 02/12/17 08:16; Admin Dose 1 APPLIC; Start 02/09/17 at 09:00 Cilostazol 50 mg 50 mg BID PO Last administered on 02/12/17 08:16; Admin Dose 50 MG; Start 02/10/17 at 21:00 Vancomycin HCl/ Sodium Chloride (Vancocin/NS) 250 ml @ 83.333 mls/ hr Q24H IVPB ; Start 02/13/17 at 06:00 JOSE RANGEL Feb 12, 2017 18:08
--- NOTE | 2017-02-12 18:37 | CONS ---
Date/Time of Note Date/Time of Note DATE: 02/12/17 TIME: 18:35 Assessment/Plan Assessment/Plan Problems: (1) Type 2 diabetes mellitus with foot ulcer Status: Chronic Comment: Excellent glycemic control continues on same doses of oral and insulin meds started by primary team. Would continue these. Will defer other complaints to primary team. Qualifiers: Diabetes mellitus correction insulin use: without terminal worker use Qualified Code: E11.621 - Type 2 diabetes mellitus with foot ulcer, without long-term current use of insulin Consultation Date/Type/Reason Admit Date/Time Feb 04, 2017 at 17:34 Initial Consult Date 02/07/17 Type of Consultation: Endocrinology Reason for Consultation T2DM management Referring Provider: JOSE RANGEL 24 HR Interval Summary Constitutional: no complaints Detailed Summary Respiratory: no complaints Cardiovascular: no complaints Gastrointestinal: other (bloating, gas) Genitourinary: no complaints Musculoskeletal: bone/joint pain (pain B feet, R shoulder) Neurologic: headache Exam/Review of Systems Vital Signs Vitals VS - Last 72 Hours, by Label Date Time Temp Pulse Resp B/P Pulse Ox O2 Delivery O2 Flow Rate FiO2 02/12/17 08:15 98.6 51 16 106/47 99 02/12/17 02:00 98.6 55 19 131/63 98 02/11/17 20:00 98.9 106 20 110/55 97 02/11/17 14:00 98.4 60 144/63 100 02/11/17 07:48 98.5 98 17 122/59 96 02/11/17 03:18 98.0 56 17 134/63 96 02/10/17 20:00 99.7 86 20 139/60 100 02/10/17 14:46 98.8 52 20 160/67 96 02/10/17 08:05 97.8 95 20 132/63 98 02/10/17 02:24 99.1 97 20 127/61 96 02/09/17 20:00 99.0 97 20 122/58 99 Vital Signs Date Time Temp Pulse Resp B/P Pulse Ox O2 Delivery O2 Flow Rate FiO2 02/12/17 08:15 98.6 51 16 106/47 99 Intake and Output 02/11/17 02/11/17 02/12/17 15:00 23:00 07:00 Intake Total 50 ml 1210 ml 350 ml Balance 50 ml 1210 ml 350 ml Exam Constitutional: alert, obese, oriented Psych: nl mood/affect, no complaints Respiratory: clear to auscultation, normal air movement Cardiovascular: nl pulses, regular rate and rhythm, No edema, No murmurs/extra sounds, No rub Gastrointestinal: bowel sounds, nl liver, spleen, non-tender, soft, No mass, No rebound or guarding Musculoskeletal: No nl extremities to inspection (B feet wrapped) Extremities: No clubbing, No cyanosis, No edema Neurological: BAKER BREAD II-XII intact, nl mental status, nl speech, nl strength Additional Comments Bedside Glucose - 72 Hours Test 02/09/17 21:20 02/10/17 08:16 02/10/17 12:13 02/10/17 17:41 Bedside Glucose 99mg/dL (70-220) 156mg/dL (70-220) 133mg/dL (70-220) 111mg/dL (70-220) Test 02/10/17 21:24 02/11/17 08:56 02/11/17 12:29 02/11/17 17:29 Bedside Glucose 96mg/dL (70-220) 178mg/dL (70-220) 139mg/dL (70-220) 178mg/dL (70-220) Test 02/11/17 20:13 02/12/17 01:56 02/12/17 08:05 02/12/17 11:57 Bedside Glucose 188mg/dL (70-220) 117mg/dL (70-220) 138mg/dL (70-220) 133mg/dL (70-220) Test 02/12/17 17:53 Bedside Glucose 106mg/dL (70-220) Results Result Diagram: 02/12/17 0532 02/12/17 0532 Results 24 hrs Laboratory Tests Test 02/11/17 20:13 02/12/17 01:56 02/12/17 05:32 02/12/17 08:05 Bedside Glucose 188 117 138 White Blood Count 6.1 Red Blood Count 3.32 L Hemoglobin 9.8 L Hematocrit 28.9 L Mean Corpuscular Volume 87.0 Mean Corpuscular Hemoglobin 29.5 Mean Corpuscular Hemoglobin Concent 33.9 Red Cell Distribution Width 11.9 Platelet Count 216 Mean Platelet Volume 9.8 Neutrophils % 65.7 Lymphocytes % 21.2 Monocytes % 11.2 H Eosinophils % 1.3 Basophils % 0.3 Nucleated Red Blood Cells % 0.0 Neutrophils # 4.0 Lymphocytes # 1.3 Monocytes # 0.7 Eosinophils # 0.1 Basophils # 0.0 Nucleated Red Blood Cells # 0.0 Sodium Level 138 Potassium Level 4.4 Chloride Level 104 Carbon Dioxide Level 27 Anion Gap 11 Blood Urea Nitrogen 14 Creatinine 1.12 H Glucose Level 132 Calcium Level 8.5 Test 02/12/17 11:57 02/12/17 17:53 Bedside Glucose 133 106 Medications Medications Current Medications Ondansetron HCl (Zofran Inj) 4 mg Q6H PRN IV NAUSEA AND/OR VOMITING Last administered on 02/07/17 11:37; Admin Dose 4 MG; Start 02/04/17 at 19:30 Acetaminophen (Tylenol Tab) 650 mg Q6H PRN PO PAIN LEVEL 1-3 OR FEVER; Start 02/04/17 at 19:30 Morphine Sulfate (morphine) 2 mg Q4H PRN IV SEVERE PAIN LEVEL 7-10 Last administered on 02/12/17 16:00; Admin Dose 2 MG; Start 02/04/17 at 19:30 Famotidine (Pepcid Iv) 20 mg Q12 IV Last administered on 02/12/17 08:15; Admin Dose 20 MG; Start 02/04/17 at 21:00 Enoxaparin Sodium 30 mg 30 mg DAILY SC Last administered on 02/12/17 08:15; Admin Dose 30 MG; Start 02/05/17 at 09:00 Ceftriaxone Sodium (Rocephin) 50 ml @ 100 mls/hr DAILY IVPB Last administered on 02/12/17 08:14; Admin Dose 100 MLS/HR; Start 02/05/17 at 15:00 Aspirin (Halfprin) 81 mg DAILY PO Last administered on 02/12/17 08:15; Admin Dose 81 MG; Start 02/05/17 at 09:00 Atorvastatin Calcium (Lipitor) 40 mg HS PO Last administered on 02/11/17 20: 17; Admin Dose 40 MG; Start 02/05/17 at 21:00 Clopidogrel Bisulfate (plaVIX) 75 mg DAILY PO Last administered on 02/12/17 08:15; Admin Dose 75 MG; Start 02/05/17 at 09:00 Tramadol HCl (Ultram) 50 mg Q6H PRN PO PAIN LEVEL 1-5 Last administered on 03:40; Admin Dose 50 MG; Start 02/04/17 at 22:30 Clonidine (Catapres) 0.1 mg Q6H PRN PO ELEVATED BLOOD PRESSURE; Start at 23:00 Miscellaneous Information 1 ea NOTE XX ; Start 02/04/17 at 23:00 Glucose (Glutose) 15 gm Q15M PRN PO DECREASED GLUCOSE; Start 02/04/17 at 23:00 Glucose (Glutose) 22.5 gm Q15M PRN PO DECREASED GLUCOSE; Start 02/04/17 at 23: 00 Dextrose (D50w Syringe) 25 ml Q15M PRN IV DECREASED GLUCOSE; Start 02/04/17 at 23:00 Dextrose (D50w Syringe) 50 ml Q15M PRN IV DECREASED GLUCOSE; Start 02/04/17 at 23:00 Glucagon (Glucagen) 1 mg Q15M PRN IM DECREASED GLUCOSE; Start 02/04/17 at 23: 00 Glucose (Glutose) 15 gm Q15M PRN BUCCAL DECREASED GLUCOSE; Start 02/04/17 at 23:00 Diagnostic Test (Pha) (Accu-Chek) 1 ea 02 XX ; Start 02/06/17 at 02:00 Insulin Glargine (Lantus) 17 unit DAILY@20 SC Last administered on 02/11/17 20:15; Admin Dose 17 UNIT; Start 02/05/17 at 20:00 Fluconazole (Diflucan) 200 mg DAILY PO Last administered on 02/12/17 08:15; Admin Dose 200 MG; Start 02/06/17 at 09:00 Lidocaine (Lmx 4% Plus) 1 applic PRN PRN TOP W/ DRESSING CHANGES PRN PAIN; Start 02/06/17 at 08:00 Gentamicin Sulfate (Gentamicin 0.1% Oint) 1 applic DAILY TOP Last administered on 02/12/17 08:17; Admin Dose 1 APPLIC; Start 02/09/17 at 09:00 Sodium Hypochlorite (Dakin'S (Dilute 1/40%)) 1 applic DAILY TOP Last administered on 02/12/17 08:16; Admin Dose 1 APPLIC; Start 02/09/17 at 09:00 Cilostazol 50 mg 50 mg BID PO Last administered on 02/12/17t 08:16; Admin Dose 50 MG; Start 02/10/17 at 21:00 Vancomycin HCl/ Sodium Chloride (Vancocin/NS) 250 ml @ 83.333 mls/ hr Q24H IVPB ; Start 02/13/17 at 06:00 ARTURO HANCOCK MD Feb 12, 2017 18:37
[2017-02-12 20:00] VITALS: BP 169/70; RESP 17
[2017-02-12] MEDS: ATORVASTATIN 40 MG TAB PO SCH (20:18)
[2017-02-12] MEDS: INSULIN GLARGINE [LANtus] 3 ML PEN SC SCH (20:21)
[2017-02-12 21:00] VITALS: BP 155/69
[2017-02-13 01:58] VITALS: BP 114/55; RESP 18
[2017-02-13] MEDS: ACCU-CHEK XX SCH (02:00)
[2017-02-13] MEDS: VANCOMYCIN 1.5 GM in SOD CHLORIDE 0.9% 250 ML IVPB SCH (05:40)
[2017-02-13 05:47] LABS: BASOPHILS % 0.6 % (0.0-2.0); EOSINOPHILS # 0.1 10^3/ul (0.0-0.5); EOSINOPHILS % 1.7 % (0.0-7.0); HEMATOCRIT 27.8 % (37.0-47.0); HEMOGLOBIN 9.4 g/dl (12.0-16.0); LYMPHOCYTES # 1.1 10^3/ul (0.8-2.9); LYMPHOCYTES % 20.8 % (15.0-51.0); MEAN CORPUSCULAR HEMOGLOBIN 29.5 pg (29.0-33.0); MEAN CORPUSCULAR HGB CONC 33.8 g/dl (32.0-37.0); MEAN CORPUSCULAR VOLUME 87.1 fl (82.0-101.0); MONOCYTE # 0.6 10^3/ul (0.3-0.9); MONOCYTES % 10.1 % (0.0-11.0); NEUTROPHIL # 3.6 10^3/ul (1.6-7.5); NEUTROPHILS % 66.4 % (39.0-77.0); PLATELET COUNT 237 10^3/UL (140-415); RED BLOOD COUNT 3.19 10^6/ul (4.20-5.40); RED CELL DISTRIBUTION WIDTH 11.9 % (11.5-14.5); WHITE BLOOD COUNT 5.4 10^3/ul (4.8-10.8)
[2017-02-13 06:12] LABS: CALCIUM 8.8 mg/dl (8.4-10.2); CREATININE 1.05 mg/dl (0.44-1.00); POTASSIUM 4.4 mmol/L (3.5-5.1)
--- NOTE | 2017-02-13 07:36 | CONS ---
Date/Time of Note Date/Time of Note DATE: 02/13/17 TIME: 07:32 Assessment/Plan Assessment/Plan Chief Complaint/Hosp Course Bilateral diabetic foot ulcerations, S/P debridement. Continue daily dressing changes. Ingrowing nail, left great toe with subungual hematoma ulceration, S/P nail avulsion and debridement. Continue daily dressing changes. Ulceration of the right 3rd toe, S/P debridement. Continue daily dressing changes. Unstageable left heel ulceration, continue off-loading. Will monitor. Problems: Consultation Date/Type/Reason Admit Date/Time Feb 04, 2017 at 17:34 Initial Consult Date 02/07/17 Type of Consultation: Podiatry: Dr. Jesus restrepo Reason for Consultation Bilateral diabetic foot ulcerations, S/P debridement. Ingrowing nail, left great toe with subungual hematoma ulceration, S/P nail avulsion and debridement. Ulceration of the right 3rd toe, S/P debridement. Unstageable left heel ulceration, continue off-loading. Exam/Review of Systems Vital Signs Vitals Vital Signs Date Time Temp Pulse Resp B/P Pulse Ox O2 Delivery O2 Flow Rate FiO2 02/13/17 01:58 99.0 64 18 114/55 95 Intake and Output 02/12/17 02/12/17 02/13/17 14:59 22:59 06:59 Intake Total 300 ml 1360 ml 250 ml Balance 300 ml 1360 ml 250 ml Exam Dressings are dry, clean, intact. No strike through dressing. Results Result Diagram: 02/13/17 0453 02/13/17 0453 Results 24 hrs Laboratory Tests Test 02/12/17 08:05 02/12/17 11:57 02/12/17 17:53 02/12/17 20:16 Bedside Glucose 138 133 106 120 Test 02/13/17 04:53 White Blood Count 5.4 Red Blood Count 3.19 L Hemoglobin 9.4 L Hematocrit 27.8 L Mean Corpuscular Volume 87.1 Mean Corpuscular Hemoglobin 29.5 Mean Corpuscular Hemoglobin Concent 33.8 Red Cell Distribution Width 11.9 Platelet Count 237 Mean Platelet Volume 10.0 Neutrophils % 66.4 Lymphocytes % 20.8 Monocytes % 10.1 Eosinophils % 1.7 Basophils % 0.6 Nucleated Red Blood Cells % 0.0 Neutrophils # 3.6 Lymphocytes # 1.1 Monocytes # 0.6 Eosinophils # 0.1 Basophils # 0.0 Nucleated Red Blood Cells # 0.0 Sodium Level 140 Potassium Level 4.4 Chloride Level 104 Carbon Dioxide Level 27 Anion Gap 13 Blood Urea Nitrogen 11 Creatinine 1.05 H Glucose Level 135 Calcium Level 8.8 Medications Medications Current Medications Ondansetron HCl (Zofran Inj) 4 mg Q6H PRN IV NAUSEA AND/OR VOMITING Last administered on 02/07/17 11:37; Admin Dose 4 MG; Start 02/04/17 at 19:30 Acetaminophen (Tylenol Tab) 650 mg Q6H PRN PO PAIN LEVEL 1-3 OR FEVER; Start 02/04/17 at 19:30 Morphine Sulfate (morphine) 2 mg Q4H PRN IV SEVERE PAIN LEVEL 7-10 Last administered on 02/12/17 16:00; Admin Dose 2 MG; Start 02/04/17 at 19:30 Famotidine (Pepcid Iv) 20 mg Q12 IV Last administered on 02/12/17 20:18; Admin Dose 20 MG; Start 02/04/17 at 21:00 Enoxaparin Sodium 30 mg 30 mg DAILY SC Last administered on 02/12/17 08:15; Admin Dose 30 MG; Start 02/05/17 at 09:00 Ceftriaxone Sodium (Rocephin) 50 ml @ 100 mls/hr DAILY IVPB Last administered on 02/12/17 08:14; Admin Dose 100 MLS/HR; Start 02/05/17 at 15:00 Aspirin (Halfprin) 81 mg DAILY PO Last administered on 02/12/17 08:15; Admin Dose 81 MG; Start 02/05/17 at 09:00 Atorvastatin Calcium (Lipitor) 40 mg HS PO Last administered on 02/12/17 20: 18; Admin Dose 40 MG; Start 02/05/17 at 21:00 Clopidogrel Bisulfate (plaVIX) 75 mg DAILY PO Last administered on 02/12/17 08:15; Admin Dose 75 MG; Start 02/05/17 at 09:00 Tramadol HCl (Ultram) 50 mg Q6H PRN PO PAIN LEVEL 1-5 Last administered on 03:40; Admin Dose 50 MG; Start 02/04/17 at 22:30 Clonidine (Catapres) 0.1 mg Q6H PRN PO ELEVATED BLOOD PRESSURE; Start at 23:00 Miscellaneous Information 1 ea NOTE XX ; Start 02/04/17 at 23:00 Glucose (Glutose) 15 gm Q15M PRN PO DECREASED GLUCOSE; Start 02/04/17 at 23:00 Glucose (Glutose) 22.5 gm Q15M PRN PO DECREASED GLUCOSE; Start 02/04/17 at 23: 00 Dextrose (D50w Syringe) 25 ml Q15M PRN IV DECREASED GLUCOSE; Start 02/04/17 at 23:00 Dextrose (D50w Syringe) 50 ml Q15M PRN IV DECREASED GLUCOSE; Start 02/04/17 at 23:00 Glucagon (Glucagen) 1 mg Q15M PRN IM DECREASED GLUCOSE; Start 02/04/17 at 23: 00 Glucose (Glutose) 15 gm Q15M PRN BUCCAL DECREASED GLUCOSE; Start 02/04/17 at 23:00 Diagnostic Test (Pha) (Accu-Chek) 1 ea 02 XX ; Start 02/06/17 at 02:00 Insulin Glargine (Lantus) 17 unit DAILY@20 SC Last administered on 02/12/17 20:21; Admin Dose 17 UNIT; Start 02/05/17 at 20:00 Fluconazole (Diflucan) 200 mg DAILY PO Last administered on 02/12/17 08:15; Admin Dose 200 MG; Start 02/06/17 at 09:00 Lidocaine (Lmx 4% Plus) 1 applic PRN PRN TOP W/ DRESSING CHANGES PRN PAIN; Start 02/06/17 at 08:00 Gentamicin Sulfate (Gentamicin 0.1% Oint) 1 applic DAILY TOP Last administered on 02/12/17 08:17; Admin Dose 1 APPLIC; Start 02/09/17 at 09:00 Sodium Hypochlorite (Dakin'S (Dilute 1/40%)) 1 applic DAILY TOP Last administered on 02/12/17 08:16; Admin Dose 1 APPLIC; Start 02/09/17 at 09:00 Cilostazol 50 mg 50 mg BID PO Last administered on 02/12/17 20:18; Admin Dose 50 MG; Start 02/10/17 at 21:00 Vancomycin HCl/ Sodium Chloride (Vancocin/NS) 250 ml @ 83.333 mls/ hr Q24H IVPB Last administered on 12/19/17at 05:40; Admin Dose 83.333 MLS/HR; Start at 06:00 ANTONY CHAVEZ DPM Feb 13, 2017 07:36
[2017-02-13] MEDS: INSULIN ASPART [NOVOLOG] 3 ML PEN SC SCH ×7 (07:43→21:00)
[2017-02-13 07:55] VITALS: BP 118/58; RESP 16
[2017-02-13] MEDS: CILOSTAZOL 100 MG TAB PO SCH ×2 (08:28→21:00)
[2017-02-13] MEDS: metFORMIN 500 MG TAB PO SCH ×2 (08:29→17:08)
[2017-02-13] MEDS: CLOPIDOGREL 75 MG TAB PO SCH (08:30)
[2017-02-13] MEDS: FLUCONAZOLE 200 MG TAB PO SCH (08:30)
[2017-02-13] MEDS: LINAGLIPTIN 5 MG TABLET PO SCH (08:30)
[2017-02-13] MEDS: ASPIRIN (EC) 81 MG TAB PO SCH (08:30)
[2017-02-13] MEDS: CEFTRIAXONE 1 GM/50 ML (PMX) 50 ML IVPB SCH (08:31)
[2017-02-13] MEDS: FAMOTIDINE 20 MG INJ IV SCH ×2 (08:31→21:00)
[2017-02-13] MEDS: ENOXAPARIN 30 MG/0.3 ML SYG SC SCH (08:31)
[2017-02-13] MEDS: SODIUM HYPOCHLORITE 1/40% 1L IRRIG TOP SCH (08:33)
[2017-02-13] MEDS: GENTAMICIN 0.1% 15 GM OINT TOP SCH (08:34)
--- NOTE | 2017-02-13 10:33 | CONS ---
Date/Time of Note Date/Time of Note DATE: 02/13/17 TIME: 10:32 Assessment/Plan Assessment/Plan Chief Complaint/Hosp Course SUBJECTIVE: No events overnight. Awake, in no distress, afebrile. MICROBIOLOGY: Wound culture pending ANTIMICROBIALS: Patient is on: 1. Vancomycin 2. Rocephin. 3. Diflucan PHYSICAL EXAMINATION: GENERAL: Well-developed elderly woman in no distress. HEENT: Head atraumatic, normocephalic. Sclerae anicteric. Buccal mucosa pink. NECK: Supple. CHEST: Rise symmetrical. Breath sounds clear. HEART: S1, S2. ABDOMEN: Soft. Bowel tones present. ASSESSMENT: 1. Bilateral diabetic foot ulcerations with exposed bone of the left toe, status post incision and drainage. 2. Diabetes. 3. Diabetes neuropathy. 4. Positive urinalysis on admission PLAN: The patient remains stable. All cultures negative. Continue present care, antibiotics. Follow podiatry recommendations . Most likely patient will require long-term IV antibiotics for osteomyelitis of the toe. DW staff Problems: Consultation Date/Type/Reason Admit Date/Time Feb 04, 2017 at 17:34 Initial Consult Date 02/07/17 Type of Consultation: ID Exam/Review of Systems Vital Signs Vitals Vital Signs Date Time Temp Pulse Resp B/P Pulse Ox O2 Delivery O2 Flow Rate FiO2 02/13/17 07:55 98.1 104 16 118/58 97 Intake and Output 02/12/17 02/12/17 02/13/17 15:00 23:00 07:00 Intake Total 300 ml 1360 ml 250 ml Balance 300 ml 1360 ml 250 ml Results Result Diagram: 02/13/17 0453 02/13/17 0453 Results 24 hrs Laboratory Tests Test 02/12/17 11:57 02/12/17 17:53 02/12/17 20:16 02/13/17 04:53 Bedside Glucose 133 106 120 White Blood Count 5.4 Red Blood Count 3.19 L Hemoglobin 9.4 L Hematocrit 27.8 L Mean Corpuscular Volume 87.1 Mean Corpuscular Hemoglobin 29.5 Mean Corpuscular Hemoglobin Concent 33.8 Red Cell Distribution Width 11.9 Platelet Count 237 Mean Platelet Volume 10.0 Neutrophils % 66.4 Lymphocytes % 20.8 Monocytes % 10.1 Eosinophils % 1.7 Basophils % 0.6 Nucleated Red Blood Cells % 0.0 Neutrophils # 3.6 Lymphocytes # 1.1 Monocytes # 0.6 Eosinophils # 0.1 Basophils # 0.0 Nucleated Red Blood Cells # 0.0 Sodium Level 140 Potassium Level 4.4 Chloride Level 104 Carbon Dioxide Level 27 Anion Gap 13 Blood Urea Nitrogen 11 Creatinine 1.05 H Glucose Level 135 Calcium Level 8.8 Test 02/13/17 07:41 Bedside Glucose 131 Medications Medications Current Medications Ondansetron HCl (Zofran Inj) 4 mg Q6H PRN IV NAUSEA AND/OR VOMITING Last administered on 02/07/17 11:37; Admin Dose 4 MG; Start 02/04/17 at 19:30 Acetaminophen (Tylenol Tab) 650 mg Q6H PRN PO PAIN LEVEL 1-3 OR FEVER; Start 02/04/17 at 19:30 Morphine Sulfate (morphine) 2 mg Q4H PRN IV SEVERE PAIN LEVEL 7-10 Last administered on 02/12/17 16:00; Admin Dose 2 MG; Start 02/04/17 at 19:30 Famotidine (Pepcid Iv) 20 mg Q12 IV Last administered on 02/13/17 08:31; Admin Dose 20 MG; Start 02/04/17 at 21:00 Enoxaparin Sodium 30 mg 30 mg DAILY SC Last administered on 02/13/17 08:31; Admin Dose 30 MG; Start 02/05/17 at 09:00 Ceftriaxone Sodium (Rocephin) 50 ml @ 100 mls/hr DAILY IVPB Last administered on 02/13/17 08:31; Admin Dose 100 MLS/HR; Start 02/05/17 at 15:00 Aspirin (Halfprin) 81 mg DAILY PO Last administered on 02/13/17 08:30; Admin Dose 81 MG; Start 02/05/17 at 09:00 Atorvastatin Calcium (Lipitor) 40 mg HS PO Last administered on 02/12/17 20: 18; Admin Dose 40 MG; Start 02/05/17 at 21:00 Clopidogrel Bisulfate (plaVIX) 75 mg DAILY PO Last administered on 02/13/17 08:30; Admin Dose 75 MG; Start 02/05/17 at 09:00 Tramadol HCl (Ultram) 50 mg Q6H PRN PO PAIN LEVEL 1-5 Last administered on 03:40; Admin Dose 50 MG; Start 02/04/17 at 22:30 Clonidine (Catapres) 0.1 mg Q6H PRN PO ELEVATED BLOOD PRESSURE; Start at 23:00 Miscellaneous Information 1 ea NOTE XX ; Start 02/04/17 at 23:00 Glucose (Glutose) 15 gm Q15M PRN PO DECREASED GLUCOSE; Start 02/04/17 at 23:00 Glucose (Glutose) 22.5 gm Q15M PRN PO DECREASED GLUCOSE; Start 02/04/17 at 23: 00 Dextrose (D50w Syringe) 25 ml Q15M PRN IV DECREASED GLUCOSE; Start 02/04/17 at 23:00 Dextrose (D50w Syringe) 50 ml Q15M PRN IV DECREASED GLUCOSE; Start 02/04/17 at 23:00 Glucagon (Glucagen) 1 mg Q15M PRN IM DECREASED GLUCOSE; Start 02/04/17 at 23: 00 Glucose (Glutose) 15 gm Q15M PRN BUCCAL DECREASED GLUCOSE; Start 02/04/17 at 23:00 Diagnostic Test (Pha) (Accu-Chek) 1 ea 02 XX ; Start 02/06/17 at 02:00 Insulin Glargine (Lantus) 17 unit DAILY@20 SC Last administered on 02/12/17 20:21; Admin Dose 17 UNIT; Start 02/05/17 at 20:00 Fluconazole (Diflucan) 200 mg DAILY PO Last administered on 02/13/17 08:30; Admin Dose 200 MG; Start 02/06/17 at 09:00 Lidocaine (Lmx 4% Plus) 1 applic PRN PRN TOP W/ DRESSING CHANGES PRN PAIN; Start 02/06/17 at 08:00 Gentamicin Sulfate (Gentamicin 0.1% Oint) 1 applic DAILY TOP Last administered on 02/13/17 08:34; Admin Dose 1 APPLIC; Start 02/09/17 at 09:00 Sodium Hypochlorite (Dakin'S (Dilute 1/40%)) 1 applic DAILY TOP Last administered on 02/13/17 08:33; Admin Dose 1 APPLIC; Start 02/09/17 at 09:00 Cilostazol 50 mg 50 mg BID PO Last administered on 02/13/17 08:28; Admin Dose 50 MG; Start 02/10/17 at 21:00 Vancomycin HCl/ Sodium Chloride (Vancocin/NS) 250 ml @ 83.333 mls/ hr Q24H IVPB Last administered on 02/13/17t 05:40; Admin Dose 83.333 MLS/HR; Start at 06:00 JOSELITO AGARWAL NP Feb 13, 2017 10:33
[2017-02-13 14:40] VITALS: BP 118/58; RESP 18
[2017-02-13] MEDS ORDERED: LIDOCAINE 1% (MPF) 5 ML VIAL SC ONE (18:30)
--- NOTE | 2017-02-13 18:40 | PN ---
Date/Time of Note Date/Time of Note DATE: 02/13/17 TIME: 18:38 Assessment/Plan VTE Prophylaxis VTE Prophylaxis Intervention: SCD's Lines/Catheters IV [facility]ter Type [facility]from [facility] Mid Line Urinary Cath still in place: No Assessment/Plan Chief Complaint/Hosp Course Pending PICC line insertion for long-term antibiotics for osteomyelitis, patient remains hemodynamically stable, blood sugar is well controlled Assessment/Plan -Right third toe left great toe ulcers with osteomyelitis of the right foot toe , status post excisional debridement of the right third toe and the left big toe on 02/[address] Raya, podiatry. is following in infection disease consultation. Continue antibiotics per ID. -Severe peripheral arterial disease. Dr. San in vascular surgery consultation, vascular interventions planned. -Urinary tract infection per UA, continue antibiotics per ID. -Hypertension -Hyperlipidemia -Hyperglycemia in patient with diabetes mellitus type 2. hemoglobin A1c is 10.8. Continue Lantus and pre-meal NovoLog. Dr. Cornejo is following in endocrinology consultation. -Obesity Further recommendations based on clinical course. Plan of care discussed with Dr. Garcia Problems: Exam/Review of Systems Vital Signs Vitals Vital Signs Date Time Temp Pulse Resp B/P Pulse Ox O2 Delivery O2 Flow Rate FiO2 02/13/17 14:40 98.0 64 18 118/58 99 Intake and Output 02/12/17 02/12/17 02/13/17 15:00 23:00 07:00 Intake Total 300 ml 1360 ml 250 ml Balance 300 ml 1360 ml 250 ml Exam Constitutional: alert, oriented Respiratory: normal air movement Cardiovascular: nl pulses Gastrointestinal: non-tender, soft Musculoskeletal: nl extremities to inspection Extremities: normal pulses. Results Result Diagram: 02/13/17 0453 02/13/17 0453 Results 24 hrs Laboratory Tests Test 02/12/17 20:16 02/13/17 04:53 02/13/17 07:41 02/13/17 11:52 Bedside Glucose 120 131 164 White Blood Count 5.4 Red Blood Count 3.19 L Hemoglobin 9.4 L Hematocrit 27.8 L Mean Corpuscular Volume 87.1 Mean Corpuscular Hemoglobin 29.5 Mean Corpuscular Hemoglobin Concent 33.8 Red Cell Distribution Width 11.9 Platelet Count 237 Mean Platelet Volume 10.0 Neutrophils % 66.4 Lymphocytes % 20.8 Monocytes % 10.1 Eosinophils % 1.7 Basophils % 0.6 Nucleated Red Blood Cells % 0.0 Neutrophils # 3.6 Lymphocytes # 1.1 Monocytes # 0.6 Eosinophils # 0.1 Basophils # 0.0 Nucleated Red Blood Cells # 0.0 Sodium Level 140 Potassium Level 4.4 Chloride Level 104 Carbon Dioxide Level 27 Anion Gap 13 Blood Urea Nitrogen 11 Creatinine 1.05 H Glucose Level 135 Calcium Level 8.8 Test 02/13/17 17:05 Bedside Glucose 108 Medications Medications Current Medications Ondansetron HCl (Zofran Inj) 4 mg Q6H PRN IV NAUSEA AND/OR VOMITING Last administered on 02/07/17 11:37; Admin Dose 4 MG; Start 02/04/17 at 19:30 Acetaminophen (Tylenol Tab) 650 mg Q6H PRN PO PAIN LEVEL 1-3 OR FEVER; Start 02/04/17 at 19:30 Morphine Sulfate (morphine) 2 mg Q4H PRN IV SEVERE PAIN LEVEL 7-10 Last administered on 02/12/17 16:00; Admin Dose 2 MG; Start 02/04/17 at 19:30 Famotidine (Pepcid Iv) 20 mg Q12 IV Last administered on 02/13/17 08:31; Admin Dose 20 MG; Start 02/04/17 at 21:00 Enoxaparin Sodium 30 mg 30 mg DAILY SC Last administered on 02/13/17 08:31; Admin Dose 30 MG; Start 02/05/17 at 09:00 Ceftriaxone Sodium (Rocephin) 50 ml @ 100 mls/hr DAILY IVPB Last administered on 02/13/17 08:31; Admin Dose 100 MLS/HR; Start 02/05/17 at 15:00 Aspirin (Halfprin) 81 mg DAILY PO Last administered on 02/13/17 08:30; Admin Dose 81 MG; Start 02/05/17 at 09:00 Atorvastatin Calcium (Lipitor) 40 mg HS PO Last administered on 02/12/17 20: 18; Admin Dose 40 MG; Start 02/05/17 at 21:00 Clopidogrel Bisulfate (plaVIX) 75 mg DAILY PO Last administered on 02/13/17 08:30; Admin Dose 75 MG; Start 02/05/17 at 09:00 Tramadol HCl (Ultram) 50 mg Q6H PRN PO PAIN LEVEL 1-5 Last administered on 03:40; Admin Dose 50 MG; Start 02/04/17 at 22:30 Clonidine (Catapres) 0.1 mg Q6H PRN PO ELEVATED BLOOD PRESSURE; Start at 23:00 Miscellaneous Information 1 ea NOTE XX ; Start 02/04/17 at 23:00 Glucose (Glutose) 15 gm Q15M PRN PO DECREASED GLUCOSE; Start 02/04/17 at 23:00 Glucose (Glutose) 22.5 gm Q15M PRN PO DECREASED GLUCOSE; Start 02/04/17 at 23: 00 Dextrose (D50w Syringe) 25 ml Q15M PRN IV DECREASED GLUCOSE; Start 02/04/17 at 23:00 Dextrose (D50w Syringe) 50 ml Q15M PRN IV DECREASED GLUCOSE; Start 02/04/17 at 23:00 Glucagon (Glucagen) 1 mg Q15M PRN IM DECREASED GLUCOSE; Start 02/04/17 at 23: 00 Glucose (Glutose) 15 gm Q15M PRN BUCCAL DECREASED GLUCOSE; Start 02/04/17 at 23:00 Diagnostic Test (Pha) (Accu-Chek) 1 ea 02 XX ; Start 02/06/17 at 02:00 Insulin Glargine (Lantus) 17 unit DAILY@20 SC Last administered on 02/12/17 20:21; Admin Dose 17 UNIT; Start 02/05/17 at 20:00 Fluconazole (Diflucan) 200 mg DAILY PO Last administered on 02/13/17 08:30; Admin Dose 200 MG; Start 02/06/17 at 09:00 Lidocaine (Lmx 4% Plus) 1 applic PRN PRN TOP W/ DRESSING CHANGES PRN PAIN; Start 02/06/17 at 08:00 Gentamicin Sulfate (Gentamicin 0.1% Oint) 1 applic DAILY TOP Last administered on 02/13/17 08:34; Admin Dose 1 APPLIC; Start 02/09/17 at 09:00 Sodium Hypochlorite (Dakin'S (Dilute 1/40%)) 1 applic DAILY TOP Last administered on 02/13/17 08:33; Admin Dose 1 APPLIC; Start 02/09/17 at 09:00 Cilostazol 50 mg 50 mg BID PO Last administered on 02/13/17 08:28; Admin Dose 50 MG; Start 02/10/17 at 21:00 Vancomycin HCl/ Sodium Chloride (Vancocin/NS) 250 ml @ 83.333 mls/ hr Q24H IVPB Last administered on 02/13/17 05:40; Admin Dose 83.333 MLS/HR; Start at 06:00 Lidocaine (Xylocaine 1% (Mpf)) 5 ml ONCE ONCE SC ; Start 02/13/17 at 18:30; Stop 02/13/17 at 18:31; Status UNJOSE GARCIA Feb 13, 2017 18:40
[2017-02-13 19:51] VITALS: BP 139/65; RESP 18
--- NOTE | 2017-02-13 19:51 | CONS ---
Date/Time of Note Date/Time of Note DATE: 02/13/17 TIME: 19:45 Assessment/Plan Assessment/Plan Problems: (1) Type 2 diabetes mellitus with foot ulcer Status: Chronic Comment: Excellent glycemic control on current insulin regimen as ordered by primary team. Defer to them to manage pt.'s pain complaints. 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: without fpc use Qualified Code: E11.621 - Type 2 diabetes mellitus with foot ulcer, without long-term current use of insulin Consultation Date/Type/Reason Admit Date/Time Feb 04, 2017 at 17:34 Initial Consult Date 02/07/17 Type of Consultation: Endocrinology Reason for Consultation T2DM management Referring Provider: JOSE RANGEL 24 HR Interval Summary Constitutional: improved, no complaints Detailed Summary Respiratory: no complaints Cardiovascular: no complaints Gastrointestinal: other (bloating) Genitourinary: no complaints Musculoskeletal: back pain, bone/joint pain (B foot pain, shoulder pain) Neurologic: headache Exam/Review of Systems Vital Signs Vitals VS - Last 72 Hours, by Label Date Time Temp Pulse Resp B/P Pulse Ox O2 Delivery O2 Flow Rate FiO2 02/13/17 14:40 98.0 64 18 118/58 99 02/13/17 07:55 98.1 104 16 118/58 97 02/13/17 01:58 99.0 64 18 114/55 95 02/12/17 21:00 155/69 02/12/17 20:00 98.2 55 17 169/70 98 02/12/17 08:15 98.6 51 16 106/47 99 02/12/17 02:00 98.6 55 19 131/63 98 02/11/17 20:00 98.9 106 20 110/55 97 02/11/17 14:00 98.4 60 144/63 100 02/11/17 07:48 98.5 98 17 122/59 96 02/11/17 03:18 98.0 56 17 134/63 96 02/10/17 20:00 99.7 86 20 139/60 100 Vital Signs Date Time Temp Pulse Resp B/P Pulse Ox O2 Delivery O2 Flow Rate FiO2 02/13/17 14:40 98.0 64 18 118/58 99 Intake and Output 02/12/17 02/12/17 02/13/17 15:00 23:00 07:00 Intake Total 300 ml 1360 ml 250 ml Balance 300 ml 1360 ml 250 ml Exam Constitutional: alert, obese, oriented Psych: nl mood/affect, no complaints Respiratory: clear to auscultation, normal air movement Cardiovascular: nl pulses, regular rate and rhythm, No edema, No murmurs/extra sounds, No rub Gastrointestinal: bowel sounds, nl liver, spleen, non-tender, soft, No mass, No rebound or guarding Musculoskeletal: No nl extremities to inspection (B feet wrapped) Extremities: normal pulses, No clubbing, No cyanosis, No edema Neurological: FOOT ORTHOPEDIST II-XII intact, nl mental status, nl speech, nl strength Additional Comments Bedside Glucose - 72 Hours Test 02/10/17 21:24 02/11/17 08:56 02/11/17 12:29 02/11/17 17:29 Bedside Glucose 96mg/dL (70-220) 178mg/dL (70-220) 139mg/dL (70-220) 178mg/dL (70-220) Test 02/11/17 20:13 02/12/17 01:56 02/12/17 08:05 02/12/17 11:57 Bedside Glucose 188mg/dL (70-220) 117mg/dL (70-220) 138mg/dL (70-220) 133mg/dL (70-220) Test 02/12/17 17:53 02/12/17 20:16 02/13/17 07:41 02/13/17 11:52 Bedside Glucose 106mg/dL (70-220) 120mg/dL (70-220) 131mg/dL (70-220) 164mg/dL (70-220) Test 02/13/17 17:05 Bedside Glucose 108mg/dL (70-220) Results Result Diagram: 02/13/17 0453 02/13/17 0453 Results 24 hrs Laboratory Tests Test 02/12/17 20:16 02/13/17 04:53 02/13/17 07:41 02/13/17 11:52 Bedside Glucose 120 131 164 White Blood Count 5.4 Red Blood Count 3.19 L Hemoglobin 9.4 L Hematocrit 27.8 L Mean Corpuscular Volume 87.1 Mean Corpuscular Hemoglobin 29.5 Mean Corpuscular Hemoglobin Concent 33.8 Red Cell Distribution Width 11.9 Platelet Count 237 Mean Platelet Volume 10.0 Neutrophils % 66.4 Lymphocytes % 20.8 Monocytes % 10.1 Eosinophils % 1.7 Basophils % 0.6 Nucleated Red Blood Cells % 0.0 Neutrophils # 3.6 Lymphocytes # 1.1 Monocytes # 0.6 Eosinophils # 0.1 Basophils # 0.0 Nucleated Red Blood Cells # 0.0 Sodium Level 140 Potassium Level 4.4 Chloride Level 104 Carbon Dioxide Level 27 Anion Gap 13 Blood Urea Nitrogen 11 Creatinine 1.05 H Glucose Level 135 Calcium Level 8.8 Test 02/13/17 17:05 Bedside Glucose 108 Medications Medications Current Medications Ondansetron HCl (Zofran Inj) 4 mg Q6H PRN IV NAUSEA AND/OR VOMITING Last administered on 02/07/17 11:37; Admin Dose 4 MG; Start 02/04/17 at 19:30 Acetaminophen (Tylenol Tab) 650 mg Q6H PRN PO PAIN LEVEL 1-3 OR FEVER; Start 02/04/17 at 19:30 Morphine Sulfate (morphine) 2 mg Q4H PRN IV SEVERE PAIN LEVEL 7-10 Last administered on 02/12/17 16:00; Admin Dose 2 MG; Start 02/04/17 at 19:30 Famotidine (Pepcid Iv) 20 mg Q12 IV Last administered on 02/13/17 08:31; Admin Dose 20 MG; Start 02/04/17 at 21:00 Enoxaparin Sodium 30 mg 30 mg DAILY SC Last administered on 02/13/17 08:31; Admin Dose 30 MG; Start 02/05/17 at 09:00 Ceftriaxone Sodium (Rocephin) 50 ml @ 100 mls/hr DAILY IVPB Last administered on 02/13/17 08:31; Admin Dose 100 MLS/HR; Start 02/05/17 at 15:00 Aspirin (Halfprin) 81 mg DAILY PO Last administered on 02/13/17 08:30; Admin Dose 81 MG; Start 02/05/17 at 09:00 Atorvastatin Calcium (Lipitor) 40 mg HS PO Last administered on 02/12/17 20: 18; Admin Dose 40 MG; Start 02/05/17 at 21:00 Clopidogrel Bisulfate (plaVIX) 75 mg DAILY PO Last administered on 02/13/17 08:30; Admin Dose 75 MG; Start 02/05/17 at 09:00 Tramadol HCl (Ultram) 50 mg Q6H PRN PO PAIN LEVEL 1-5 Last administered on 03:40; Admin Dose 50 MG; Start 02/04/17 at 22:30 Clonidine (Catapres) 0.1 mg Q6H PRN PO ELEVATED BLOOD PRESSURE; Start at 23:00 Miscellaneous Information 1 ea NOTE XX ; Start 02/04/17 at 23:00 Glucose (Glutose) 15 gm Q15M PRN PO DECREASED GLUCOSE; Start 02/04/17 at 23:00 Glucose (Glutose) 22.5 gm Q15M PRN PO DECREASED GLUCOSE; Start 02/04/17 at 23: 00 Dextrose (D50w Syringe) 25 ml Q15M PRN IV DECREASED GLUCOSE; Start 02/04/17 at 23:00 Dextrose (D50w Syringe) 50 ml Q15M PRN IV DECREASED GLUCOSE; Start 02/04/17 at 23:00 Glucagon (Glucagen) 1 mg Q15M PRN IM DECREASED GLUCOSE; Start 02/04/17 at 23: 00 Glucose (Glutose) 15 gm Q15M PRN BUCCAL DECREASED GLUCOSE; Start 02/04/17 at 23:00 Diagnostic Test (Pha) (Accu-Chek) 1 ea 02 XX ; Start 02/06/17 at 02:00 Insulin Glargine (Lantus) 17 unit DAILY@20 SC Last administered on 02/12/17 20:21; Admin Dose 17 UNIT; Start 02/05/17 at 20:00 Fluconazole (Diflucan) 200 mg DAILY PO Last administered on 02/13/17 08:30; Admin Dose 200 MG; Start 02/06/17 at 09:00 Lidocaine (Lmx 4% Plus) 1 applic PRN PRN TOP W/ DRESSING CHANGES PRN PAIN; Start 02/06/17 at 08:00 Gentamicin Sulfate (Gentamicin 0.1% Oint) 1 applic DAILY TOP Last administered on 02/13/17 08:34; Admin Dose 1 APPLIC; Start 02/09/17 at 09:00 Sodium Hypochlorite (Dakin'S (Dilute 1/40%)) 1 applic DAILY TOP Last administered on 02/13/17 08:33; Admin Dose 1 APPLIC; Start 02/09/17 at 09:00 Cilostazol 50 mg 50 mg BID PO Last administered on 02/13/17 08:28; Admin Dose 50 MG; Start 02/10/17 at 21:00 Vancomycin HCl/ Sodium Chloride (Vancocin/NS) 250 ml @ 83.333 mls/ hr Q24H IVPB Last administered on 02/13/17 05:40; Admin Dose 83.333 MLS/HR; Start at 06:00 ARTURO HANCOCK MD Feb 13, 2017 19:51
[2017-02-13] MEDS: morphine 2 MG INJ IV PRN (21:00)
[2017-02-13] MEDS: ATORVASTATIN 40 MG TAB PO SCH (21:00)
[2017-02-13] MEDS: INSULIN GLARGINE [LANtus] 3 ML PEN SC SCH (21:24)
[2017-02-14] MEDS: ACCU-CHEK XX SCH (02:00)
[2017-02-14 02:06] VITALS: BP 117/53; RESP 18
[2017-02-14] MEDS: VANCOMYCIN 1.5 GM in SOD CHLORIDE 0.9% 250 ML IVPB SCH (05:32)
[2017-02-14 06:10] LABS: BASOPHILS % 0.5 % (0.0-2.0); EOSINOPHILS # 0.1 10^3/ul (0.0-0.5); EOSINOPHILS % 1.3 % (0.0-7.0); HEMATOCRIT 29.8 % (37.0-47.0); HEMOGLOBIN 10.2 g/dl (12.0-16.0); LYMPHOCYTES # 1.5 10^3/ul (0.8-2.9); MEAN CORPUSCULAR HEMOGLOBIN 29.8 pg (29.0-33.0); MEAN CORPUSCULAR HGB CONC 34.2 g/dl (32.0-37.0); MEAN CORPUSCULAR VOLUME 87.1 fl (82.0-101.0); MEAN PLATELET VOLUME 9.7 fl (7.4-10.4); MONOCYTE # 0.5 10^3/ul (0.3-0.9); MONOCYTES % 7.7 % (0.0-11.0); NEUTROPHILS % 65.3 % (39.0-77.0); PLATELET COUNT 284 10^3/UL (140-415); RED BLOOD COUNT 3.42 10^6/ul (4.20-5.40); RED CELL DISTRIBUTION WIDTH 11.9 % (11.5-14.5); WHITE BLOOD COUNT 6.1 10^3/ul (4.8-10.8)
[2017-02-14 06:53] LABS: CALCIUM 9.4 mg/dl (8.4-10.2); CREATININE 1.19 mg/dl (0.44-1.00); POTASSIUM 4.4 mmol/L (3.5-5.1)
[2017-02-14] MEDS: INSULIN ASPART [NOVOLOG] 3 ML PEN SC SCH ×8 (08:00→20:54)
[2017-02-14] MEDS: LINAGLIPTIN 5 MG TABLET PO SCH (08:29)
[2017-02-14] MEDS: CILOSTAZOL 100 MG TAB PO SCH ×2 (08:29→20:54)
[2017-02-14] MEDS: FAMOTIDINE 20 MG INJ IV SCH ×2 (08:29→20:54)
[2017-02-14] MEDS: CLOPIDOGREL 75 MG TAB PO SCH (08:30)
[2017-02-14] MEDS: metFORMIN 500 MG TAB PO SCH ×2 (08:30→17:26)
[2017-02-14] MEDS: CEFTRIAXONE 1 GM/50 ML (PMX) 50 ML IVPB SCH (08:30)
[2017-02-14] MEDS: ASPIRIN (EC) 81 MG TAB PO SCH (08:30)
[2017-02-14] MEDS: FLUCONAZOLE 200 MG TAB PO SCH (08:30)
[2017-02-14 08:32] VITALS: BP 135/71; RESP 18
[2017-02-14] MEDS: ENOXAPARIN 30 MG/0.3 ML SYG SC SCH (08:33)
[2017-02-14] MEDS: GENTAMICIN 0.1% 15 GM OINT TOP SCH (08:34)
[2017-02-14] MEDS: SODIUM HYPOCHLORITE 1/40% 1L IRRIG TOP SCH (08:34)
[2017-02-14] MEDS ORDERED: SOD CHLORIDE 0.9% 100 ML ONE (13:37)
[2017-02-14 14:00] VITALS: BP 126/60; RESP 17
--- NOTE | 2017-02-14 14:10 | RADRPT ---
PROCEDURE: US guidance for PICC line CLINICAL INDICATION: PICC line placement TECHNIQUE: Multiple real-time images were acquired of the patient's arm utilizing a high resolutio n transducer. This was performed by the PICC line nurse for venous access. COMPARISON: None FINDINGS: Ultrasound guidance for PICC line placement. IMPRESSION: Ultrasound guidance for PICC line placement. RPTAT: AA .Audie Diggs MD, MD Date Time Electronically viewed and signed by .Audie Diggs MD, on 02/14/2017 14:10 .S/
--- NOTE | 2017-02-14 14:22 | RADRPT ---
PROCEDURE: XR Chest. CLINICAL INDICATION: PICC line placement TECHNIQUE: Single frontal view of the chest was obtained COMPARISON: 07/06/16 FINDINGS: There is a new left-sided PICC line in place with its tip overlying the mid right atrium. The heart, mediastinum, and lungs are unchanged. There is elevation of the left diaphragm with left lower lobe scarring. The heart is normal in size. There is calcification of the thoracic aorta. RPTAT: AA IMPRESSION: New PICC line in appropriate position with this tip overlying the mid right atrium.. .Audie Diggs MD, MD Date Time Electronically viewed and signed by .Audie Diggs MD, MD on 02/14/2017 14:22 .S/
--- NOTE | 2017-02-14 14:23 | RADRPT ---
PROCEDURE: XR Chest. CLINICAL INDICATION: PICC line placement TECHNIQUE: Single frontal view of the chest was obtained COMPARISON: Same day FINDINGS: There is a new left-sided PICC line in place with its tip overlying the cavoatrial junction. The heart, mediastinum, and lungs are unchanged. RPTAT: AA IMPRESSION: New PICC line in appropriate position. .Audie Diggs MD, MD Date Time Electronically viewed and signed by .Audie Diggs MD, MD on 02/14/2017 14:23 .S/
--- NOTE | 2017-02-14 14:23 | RADRPT ---
PROCEDURE: XR Chest. CLINICAL INDICATION: PICC line placement TECHNIQUE: Single frontal view of the chest was obtained COMPARISON: Same day FINDINGS: The left-sided PICC line has been retracted with its tip partially coiled in the mid SVC. The remainder of the study is unchanged. RPTAT: AA IMPRESSION: Left-sided PICC line has been partially retracted with its tip partially coiled in the mid SVC. .Audie Diggs MD, MD Date Time Electronically viewed and signed by .Audie Diggs MD, on 02/14/2017 14:22 .S/
--- NOTE | 2017-02-14 15:18 | CONS ---
Date/Time of Note Date/Time of Note DATE: 02/14/17 TIME: 15:16 Assessment/Plan Assessment/Plan Chief Complaint/Hosp Course SUBJECTIVE: No events overnight. Awake, in no distress, afebrile. MICROBIOLOGY: Wound culture pending ANTIMICROBIALS: 1. Vancomycin 2. Rocephin. 3. Diflucan PHYSICAL EXAMINATION: GENERAL: Well-developed elderly woman in no distress. HEENT: Head atraumatic, normocephalic. Sclerae anicteric. Buccal mucosa pink. NECK: Supple. CHEST: Rise symmetrical. Breath sounds clear. HEART: S1, S2. ABDOMEN: Soft. Bowel tones present. ASSESSMENT: 1. Bilateral diabetic foot ulcerations with exposed bone of the left toe, status post incision and drainage. 2. Diabetes. 3. Diabetes neuropathy. 4. Positive urinalysis on admission PLAN: The patient remains stable. Continue present care, anticipate dc on Vanco and PO Levaquin for 4 more weeks. Follow podiatry recommendations . [facility] staff Problems: Consultation Date/Type/Reason Admit Date/Time Feb 04, 2017 at 17:34 Initial Consult Date 02/07/17 Type of Consultation: id Referring Provider: JOSE RANGEL Exam/Review of Systems Vital Signs Vitals Vital Signs Date Time Temp Pulse Resp B/P Pulse Ox O2 Delivery O2 Flow Rate FiO2 02/14/17 08:32 98.6 100 18 135/71 97 Intake and Output 02/13/17 02/13/17 02/14/17 15:00 23:00 07:00 Intake Total 300 ml 750 ml 450 ml Balance 300 ml 750 ml 450 ml Results Result Diagram: 02/14/17 0532 02/14/17 0532 Results 24 hrs Laboratory Tests Test 02/13/17 17:05 02/13/17 20:58 02/14/17 05:32 02/14/17 08:11 Bedside Glucose 108 89 123 White Blood Count 6.1 Red Blood Count 3.42 L Hemoglobin 10.2 L Hematocrit 29.8 L Mean Corpuscular Volume 87.1 Mean Corpuscular Hemoglobin 29.8 Mean Corpuscular Hemoglobin Concent 34.2 Red Cell Distribution Width 11.9 Platelet Count 284 Mean Platelet Volume 9.7 Neutrophils % 65.3 Lymphocytes % 25.0 Monocytes % 7.7 Eosinophils % 1.3 Basophils % 0.5 Nucleated Red Blood Cells % 0.0 Neutrophils # 4.0 Lymphocytes # 1.5 Monocytes # 0.5 Eosinophils # 0.1 Basophils # 0.0 Nucleated Red Blood Cells # 0.0 Sodium Level 142 Potassium Level 4.4 Chloride Level 103 Carbon Dioxide Level 28 Anion Gap 15 Blood Urea Nitrogen 12 Creatinine 1.19 H Glucose Level 134 Calcium Level 9.4 Test 02/14/17 13:37 Bedside Glucose 99 Medications Medications Current Medications Ondansetron HCl (Zofran Inj) 4 mg Q6H PRN IV NAUSEA AND/OR VOMITING Last administered on 02/07/17 11:37; Admin Dose 4 MG; Start 02/04/17 at 19:30 Acetaminophen (Tylenol Tab) 650 mg Q6H PRN PO PAIN LEVEL 1-3 OR FEVER; Start 02/04/17 at 19:30 Morphine Sulfate (morphine) 2 mg Q4H PRN IV SEVERE PAIN LEVEL 7-10 Last administered on 02/13/17 21:00; Admin Dose 2 MG; Start 02/04/17 at 19:30 Famotidine (Pepcid Iv) 20 mg Q12 IV Last administered on 02/14/17 08:29; Admin Dose 20 MG; Start 02/04/17 at 21:00 Enoxaparin Sodium 30 mg 30 mg DAILY SC Last administered on 02/14/17 08:33; Admin Dose 30 MG; Start 02/05/17 at 09:00 Ceftriaxone Sodium (Rocephin) 50 ml @ 100 mls/hr DAILY IVPB Last administered on 02/14/17 08:30; Admin Dose 100 MLS/HR; Start 02/05/17 at 15:00 Aspirin (Halfprin) 81 mg DAILY PO Last administered on 02/14/17 08:30; Admin Dose 81 MG; Start 02/05/17 at 09:00 Atorvastatin Calcium (Lipitor) 40 mg HS PO Last administered on 02/13/17 21: 00; Admin Dose 40 MG; Start 02/05/17 at 21:00 Clopidogrel Bisulfate (plaVIX) 75 mg DAILY PO Last administered on 02/14/17 08:30; Admin Dose 75 MG; Start 02/05/17 at 09:00 Tramadol HCl (Ultram) 50 mg Q6H PRN PO PAIN LEVEL 1-5 Last administered on 03:40; Admin Dose 50 MG; Start 02/04/17 at 22:30 Clonidine (Catapres) 0.1 mg Q6H PRN PO ELEVATED BLOOD PRESSURE; Start at 23:00 Miscellaneous Information 1 ea NOTE XX ; Start 02/04/17 at 23:00 Glucose (Glutose) 15 gm Q15M PRN PO DECREASED GLUCOSE; Start 02/04/17 at 23:00 Glucose (Glutose) 22.5 gm Q15M PRN PO DECREASED GLUCOSE; Start 02/04/17 at 23: 00 Dextrose (D50w Syringe) 25 ml Q15M PRN IV DECREASED GLUCOSE; Start 02/04/17 at 23:00 Dextrose (D50w Syringe) 50 ml Q15M PRN IV DECREASED GLUCOSE; Start 02/04/17 at 23:00 Glucagon (Glucagen) 1 mg Q15M PRN IM DECREASED GLUCOSE; Start 02/04/17 at 23: 00 Glucose (Glutose) 15 gm Q15M PRN BUCCAL DECREASED GLUCOSE; Start 02/04/17 at 23:00 Diagnostic Test (Pha) (Accu-Chek) 1 ea 02 XX ; Start 02/06/17 at 02:00 Insulin Glargine (Lantus) 17 unit DAILY@20 SC Last administered on 02/13/17 21:24; Admin Dose 17 UNIT; Start 02/05/17 at 20:00 Fluconazole (Diflucan) 200 mg DAILY PO Last administered on 02/14/17 08:30; Admin Dose 200 MG; Start 02/06/17 at 09:00 Lidocaine (Lmx 4% Plus) 1 applic PRN PRN TOP W/ DRESSING CHANGES PRN PAIN; Start 02/06/17 at 08:00 Gentamicin Sulfate (Gentamicin 0.1% Oint) 1 applic DAILY TOP Last administered on 02/14/17 08:34; Admin Dose 1 APPLIC; Start 02/09/17 at 09:00 Sodium Hypochlorite (Dakin'S (Dilute 1/40%)) 1 applic DAILY TOP Last administered on 02/14/17 08:34; Admin Dose 1 APPLIC; Start 02/09/17 at 09:00 Cilostazol 50 mg 50 mg BID PO Last administered on 02/14/17 08:29; Admin Dose 50 MG; Start 02/10/17 at 21:00 Vancomycin HCl/ Sodium Chloride (Vancocin/NS) 250 ml @ 83.333 mls/ hr Q24H IVPB Last administered on 02/14/17t 05:32; Admin Dose 83.333 MLS/HR; Start at 06:00 IV Flush (NS 10 ml) 10 ml PRN PRN IV IV PROTOCOL; Start 02/14/17 at 13:30 JOSELITO AGARWAL NP Feb 14, 2017 15:18
--- NOTE | 2017-02-14 15:39 | PN ---
Date/Time of Note Date/Time of Note DATE: 02/14/17 TIME: 15:36 Assessment/Plan VTE Prophylaxis VTE Prophylaxis Intervention: SCD's Lines/Catheters IV Catheter Type (from Nrs): PICC Line Central line still needed: Yes Urinary Cath still in place: No Assessment/Plan Chief Complaint/Hosp Course Patient is status post PICC line placement for long-term antibiotics creatinine is 1.19 today, which is increased to compared to baseline, will give some IV fluids and check creatinine tomorrow. If creatinine stable patient can be discharged home with home health IV services on vancomycin IV pharmacy to dose and 500 p.o. Levaquin for 4 weeks, home health for wound care, follow-up with Dr. Lee, executive administrative asst. Plan of care discussed with ID and case management. Assessment/Plan -Right third toe left great toe ulcers with osteomyelitis of the right foot toe , status post excisional debridement of the right third toe and the left big toe on 02/[address] Raya, podiatry. is following in infection disease consultation. Continue antibiotics per ID. -Severe peripheral arterial disease. Dr. San in vascular surgery consultation, vascular interventions planned. -Urinary tract infection per UA, status post treatment. -Hypertension -Hyperlipidemia -Hyperglycemia in patient with diabetes mellitus type 2. hemoglobin A1c is 10.8. Continue Lantus and pre-meal NovoLog. Dr. Cornejo is following in endocrinology consultation. -Obesity Further recommendations based on clinical course. Plan of care discussed with Dr. Garcia Problems: Exam/Review of Systems Vital Signs Vitals Vital Signs Date Time Temp Pulse Resp B/P Pulse Ox O2 Delivery O2 Flow Rate FiO2 02/14/17 08:32 98.6 100 18 135/71 97 Intake and Output 02/13/17 02/13/17 02/14/17 15:00 23:00 07:00 Intake Total 300 ml 750 ml 450 ml Balance 300 ml 750 ml 450 ml Exam Constitutional: alert, oriented Respiratory: normal air movement Cardiovascular: nl pulses Gastrointestinal: non-tender, soft Musculoskeletal: nl extremities to inspection Extremities: normal pulses. Results Result Diagram: 02/14/17 0532 02/14/17 0532 Results 24 hrs Laboratory Tests Test 02/13/17 17:05 02/13/17 20:58 02/14/17 05:32 02/14/17 08:11 Bedside Glucose 108 89 123 White Blood Count 6.1 Red Blood Count 3.42 L Hemoglobin 10.2 L Hematocrit 29.8 L Mean Corpuscular Volume 87.1 Mean Corpuscular Hemoglobin 29.8 Mean Corpuscular Hemoglobin Concent 34.2 Red Cell Distribution Width 11.9 Platelet Count 284 Mean Platelet Volume 9.7 Neutrophils % 65.3 Lymphocytes % 25.0 Monocytes % 7.7 Eosinophils % 1.3 Basophils % 0.5 Nucleated Red Blood Cells % 0.0 Neutrophils # 4.0 Lymphocytes # 1.5 Monocytes # 0.5 Eosinophils # 0.1 Basophils # 0.0 Nucleated Red Blood Cells # 0.0 Sodium Level 142 Potassium Level 4.4 Chloride Level 103 Carbon Dioxide Level 28 Anion Gap 15 Blood Urea Nitrogen 12 Creatinine 1.19 H Glucose Level 134 Calcium Level 9.4 Test 02/14/17 13:37 Bedside Glucose 99 Medications Medications Current Medications Ondansetron HCl (Zofran Inj) 4 mg Q6H PRN IV NAUSEA AND/OR VOMITING Last administered on 02/07/17 11:37; Admin Dose 4 MG; Start 02/04/17 at 19:30 Acetaminophen (Tylenol Tab) 650 mg Q6H PRN PO PAIN LEVEL 1-3 OR FEVER; Start 02/04/17 at 19:30 Morphine Sulfate (morphine) 2 mg Q4H PRN IV SEVERE PAIN LEVEL 7-10 Last administered on 02/13/17 21:00; Admin Dose 2 MG; Start 02/04/17 at 19:30 Famotidine (Pepcid Iv) 20 mg Q12 IV Last administered on 02/14/17 08:29; Admin Dose 20 MG; Start 02/04/17 at 21:00 Enoxaparin Sodium 30 mg 30 mg DAILY SC Last administered on 02/14/17 08:33; Admin Dose 30 MG; Start 02/05/17 at 09:00 Ceftriaxone Sodium (Rocephin) 50 ml @ 100 mls/hr DAILY IVPB Last administered on 02/14/17 08:30; Admin Dose 100 MLS/HR; Start 02/05/17 at 15:00 Aspirin (Halfprin) 81 mg DAILY PO Last administered on 02/14/17 08:30; Admin Dose 81 MG; Start 02/05/17 at 09:00 Atorvastatin Calcium (Lipitor) 40 mg HS PO Last administered on 02/13/17 21: 00; Admin Dose 40 MG; Start 02/05/17 at 21:00 Clopidogrel Bisulfate (plaVIX) 75 mg DAILY PO Last administered on 02/14/17 08:30; Admin Dose 75 MG; Start 02/05/17 at 09:00 Tramadol HCl (Ultram) 50 mg Q6H PRN PO PAIN LEVEL 1-5 Last administered on 03:40; Admin Dose 50 MG; Start 02/04/17 at 22:30 Clonidine (Catapres) 0.1 mg Q6H PRN PO ELEVATED BLOOD PRESSURE; Start at 23:00 Miscellaneous Information 1 ea NOTE XX ; Start 02/04/17 at 23:00 Glucose (Glutose) 15 gm Q15M PRN PO DECREASED GLUCOSE; Start 02/04/17 at 23:00 Glucose (Glutose) 22.5 gm Q15M PRN PO DECREASED GLUCOSE; Start 02/04/17 at 23: 00 Dextrose (D50w Syringe) 25 ml Q15M PRN IV DECREASED GLUCOSE; Start 02/04/17 at 23:00 Dextrose (D50w Syringe) 50 ml Q15M PRN IV DECREASED GLUCOSE; Start 02/04/17 at 23:00 Glucagon (Glucagen) 1 mg Q15M PRN IM DECREASED GLUCOSE; Start 02/04/17 at 23: 00 Glucose (Glutose) 15 gm Q15M PRN BUCCAL DECREASED GLUCOSE; Start 02/04/17 at 23:00 Diagnostic Test (Pha) (Accu-Chek) 1 ea 02 XX ; Start 02/06/17 at 02:00 Insulin Glargine (Lantus) 17 unit DAILY@20 SC Last administered on 02/13/17 21:24; Admin Dose 17 UNIT; Start 02/05/17 at 20:00 Fluconazole (Diflucan) 200 mg DAILY PO Last administered on 02/14/17 08:30; Admin Dose 200 MG; Start 02/06/17 at 09:00 Lidocaine (Lmx 4% Plus) 1 applic PRN PRN TOP W/ DRESSING CHANGES PRN PAIN; Start 02/06/17 at 08:00 Gentamicin Sulfate (Gentamicin 0.1% Oint) 1 applic DAILY TOP Last administered on 02/14/17 08:34; Admin Dose 1 APPLIC; Start 02/09/17 at 09:00 Sodium Hypochlorite (Dakin'S (Dilute 1/40%)) 1 applic DAILY TOP Last administered on 02/14/17 08:34; Admin Dose 1 APPLIC; Start 02/09/17 at 09:00 Cilostazol 50 mg 50 mg BID PO Last administered on 02/14/17 08:29; Admin Dose 50 MG; Start 02/10/17 at 21:00 Vancomycin HCl/ Sodium Chloride (Vancocin/NS) 250 ml @ 83.333 mls/ hr Q24H IVPB Last administered on 02/14/17 05:32; Admin Dose 83.333 MLS/HR; Start at 06:00 IV Flush (NS 10 ml) 10 ml PRN PRN IV IV PROTOCOL; Start 02/14/17 at 13:30 JOSE RANGEL Feb 14, 2017 15:39
[2017-02-14] MEDS: SOD CHLORIDE 0.45% 1,000 ML IV SCH (16:23)
--- NOTE | 2017-02-14 17:51 | CONS ---
Date/Time of Note Date/Time of Note DATE: 02/14/17 TIME: 17:44 Assessment/Plan Assessment/Plan Problems: (1) Type 2 diabetes mellitus with foot ulcer Status: Chronic Comment: Ongoing excellent glycemic control on same regimen initiated prior to my starting on the case. Would continue it without changes. Qualifiers: Diabetes mellitus snf insulin use: without extermination inspector use Qualified Code: E11.621 - Type 2 diabetes mellitus with foot ulcer, without long-term current use of insulin Consultation Date/Type/Reason Admit Date/Time Feb 04, 2017 at 17:34 Initial Consult Date 02/07/17 Type of Consultation: Endocrinology Reason for Consultation T2DM management Referring Provider: JOSE RANGEL 24 HR Interval Summary Constitutional: improved, no complaints Detailed Summary Respiratory: no complaints Cardiovascular: no complaints Gastrointestinal: no complaints Genitourinary: no complaints Musculoskeletal: bone/joint pain (B feet) Neurologic: no complaints Exam/Review of Systems Vital Signs Vitals VS - Last 72 Hours, by Label Date Time Temp Pulse Resp B/P Pulse Ox O2 Delivery O2 Flow Rate FiO2 02/14/17 08:32 98.6 100 18 135/71 97 02/14/17 02:06 98.2 50 18 117/53 96 02/13/17 19:51 98.3 55 18 139/65 99 02/13/17 14:40 98.0 64 18 118/58 99 02/13/17 07:55 98.1 104 16 118/58 97 02/13/17 01:58 99.0 64 18 114/55 95 02/12/17 21:00 155/69 02/12/17 20:00 98.2 55 17 169/70 98 02/12/17 08:15 98.6 51 16 106/47 99 02/12/17 02:00 98.6 55 19 131/63 98 02/11/17 20:00 98.9 106 20 110/55 97 Vital Signs Date Time Temp Pulse Resp B/P Pulse Ox O2 Delivery O2 Flow Rate FiO2 02/14/17 08:32 98.6 100 18 135/71 97 Intake and Output 02/13/17 02/13/17 02/14/17 15:00 23:00 07:00 Intake Total 300 ml 750 ml 450 ml Balance 300 ml 750 ml 450 ml Exam Constitutional: alert, obese, oriented Psych: nl mood/affect, no complaints Respiratory: clear to auscultation, normal air movement Cardiovascular: nl pulses, regular rate and rhythm, No edema, No murmurs/extra sounds, No rub Gastrointestinal: bowel sounds, nl liver, spleen, non-tender, soft, No mass, No rebound or guarding Musculoskeletal: No nl extremities to inspection (B feet wrapped) Extremities: No clubbing, No cyanosis, No edema Neurological: REAL ESTATE LEASING AGENT II-XII intact, nl mental status, nl speech, nl strength Additional Comments Bedside Glucose - 72 Hours Test 02/11/17 20:13 02/12/17 01:56 02/12/17 08:05 02/12/17 11:57 Bedside Glucose 188mg/dL (70-220) 117mg/dL (70-220) 138mg/dL (70-220) 133mg/dL (70-220) Test 02/12/17 17:53 02/12/17 20:16 02/13/17 07:41 02/13/17 11:52 Bedside Glucose 106mg/dL (70-220) 120mg/dL (70-220) 131mg/dL (70-220) 164mg/dL (70-220) Test 02/13/17 17:05 02/13/17 20:58 02/14/17 08:11 02/14/17 13:37 Bedside Glucose 108mg/dL (70-220) 89mg/dL (70-220) 123mg/dL (70-220) 99mg/dL (70-220) Test 02/14/17 17:25 Bedside Glucose 121mg/dL (70-220) Results Result Diagram: 02/14/17 0532 02/14/17 0532 Results 24 hrs Laboratory Tests Test 02/13/17 20:58 02/14/17 05:32 02/14/17 08:11 02/14/17 13:37 Bedside Glucose 89 123 99 White Blood Count 6.1 Red Blood Count 3.42 L Hemoglobin 10.2 L Hematocrit 29.8 L Mean Corpuscular Volume 87.1 Mean Corpuscular Hemoglobin 29.8 Mean Corpuscular Hemoglobin Concent 34.2 Red Cell Distribution Width 11.9 Platelet Count 284 Mean Platelet Volume 9.7 Neutrophils % 65.3 Lymphocytes % 25.0 Monocytes % 7.7 Eosinophils % 1.3 Basophils % 0.5 Nucleated Red Blood Cells % 0.0 Neutrophils # 4.0 Lymphocytes # 1.5 Monocytes # 0.5 Eosinophils # 0.1 Basophils # 0.0 Nucleated Red Blood Cells # 0.0 Sodium Level 142 Potassium Level 4.4 Chloride Level 103 Carbon Dioxide Level 28 Anion Gap 15 Blood Urea Nitrogen 12 Creatinine 1.19 H Glucose Level 134 Calcium Level 9.4 Test 02/14/17 17:25 Bedside Glucose 121 Medications Medications Current Medications Ondansetron HCl (Zofran Inj) 4 mg Q6H PRN IV NAUSEA AND/OR VOMITING Last administered on 02/07/17 11:37; Admin Dose 4 MG; Start 02/04/17 at 19:30 Acetaminophen (Tylenol Tab) 650 mg Q6H PRN PO PAIN LEVEL 1-3 OR FEVER; Start 02/04/17 at 19:30 Morphine Sulfate (morphine) 2 mg Q4H PRN IV SEVERE PAIN LEVEL 7-10 Last administered on 02/13/17 21:00; Admin Dose 2 MG; Start 02/04/17 at 19:30 Famotidine (Pepcid Iv) 20 mg Q12 IV Last administered on 02/14/17 08:29; Admin Dose 20 MG; Start 02/04/17 at 21:00 Enoxaparin Sodium 30 mg 30 mg DAILY SC Last administered on 02/14/17 08:33; Admin Dose 30 MG; Start 02/05/17 at 09:00 Ceftriaxone Sodium (Rocephin) 50 ml @ 100 mls/hr DAILY IVPB Last administered on 02/14/17 08:30; Admin Dose 100 MLS/HR; Start 02/05/17 at 15:00 Aspirin (Halfprin) 81 mg DAILY PO Last administered on 02/14/17 08:30; Admin Dose 81 MG; Start 02/05/17 at 09:00 Atorvastatin Calcium (Lipitor) 40 mg HS PO Last administered on 02/13/17 21: 00; Admin Dose 40 MG; Start 02/05/17 at 21:00 Clopidogrel Bisulfate (plaVIX) 75 mg DAILY PO Last administered on 02/14/17 08:30; Admin Dose 75 MG; Start 02/05/17 at 09:00 Tramadol HCl (Ultram) 50 mg Q6H PRN PO PAIN LEVEL 1-5 Last administered on 03:40; Admin Dose 50 MG; Start 02/04/17 at 22:30 Clonidine (Catapres) 0.1 mg Q6H PRN PO ELEVATED BLOOD PRESSURE; Start at 23:00 Miscellaneous Information 1 ea NOTE XX ; Start 02/04/17 at 23:00 Glucose (Glutose) 15 gm Q15M PRN PO DECREASED GLUCOSE; Start 02/04/17 at 23:00 Glucose (Glutose) 22.5 gm Q15M PRN PO DECREASED GLUCOSE; Start 02/04/17 at 23: 00 Dextrose (D50w Syringe) 25 ml Q15M PRN IV DECREASED GLUCOSE; Start 02/04/17 at 23:00 Dextrose (D50w Syringe) 50 ml Q15M PRN IV DECREASED GLUCOSE; Start 02/04/17 at 23:00 Glucagon (Glucagen) 1 mg Q15M PRN IM DECREASED GLUCOSE; Start 02/04/17 at 23: 00 Glucose (Glutose) 15 gm Q15M PRN BUCCAL DECREASED GLUCOSE; Start 02/04/17 at 23:00 Diagnostic Test (Pha) (Accu-Chek) 1 ea 02 XX ; Start 02/06/17 at 02:00 Insulin Glargine (Lantus) 17 unit DAILY@20 SC Last administered on 02/13/17 21:24; Admin Dose 17 UNIT; Start 02/05/17 at 20:00 Fluconazole (Diflucan) 200 mg DAILY PO Last administered on 02/14/17 08:30; Admin Dose 200 MG; Start 02/06/17 at 09:00 Lidocaine (Lmx 4% Plus) 1 applic PRN PRN TOP W/ DRESSING CHANGES PRN PAIN; Start 02/06/17 at 08:00 Gentamicin Sulfate (Gentamicin 0.1% Oint) 1 applic DAILY TOP Last administered on 02/14/17 08:34; Admin Dose 1 APPLIC; Start 02/09/17 at 09:00 Sodium Hypochlorite (Dakin'S (Dilute 1/40%)) 1 applic DAILY TOP Last administered on 02/14/17 08:34; Admin Dose 1 APPLIC; Start 02/09/17 at 09:00 Cilostazol 50 mg 50 mg BID PO Last administered on 02/14/17 08:29; Admin Dose 50 MG; Start 02/10/17 at 21:00 Vancomycin HCl/ Sodium Chloride (Vancocin/NS) 250 ml @ 83.333 mls/ hr Q24H IVPB Last administered on 02/14/17 05:32; Admin Dose 83.333 MLS/HR; Start at 06:00 IV Flush 10 ml 10 ml PRN PRN IV IV PROTOCOL; Start 02/14/17 at 13:30 Sodium Chloride (1/2 NS) 1,000 ml @ 60 mls/hr [id number] IV Last administered on 02/14/17 16:23; Admin Dose 60 MLS/HR; Start 02/14/17 at 16:00 ARTURO HANCOCK MD Feb 14, 2017 17:51
[2017-02-14 20:47] VITALS: BP 154/64; RESP 21
[2017-02-14] MEDS: ATORVASTATIN 40 MG TAB PO SCH (20:54)
[2017-02-14] MEDS: INSULIN GLARGINE [LANtus] 3 ML PEN SC SCH (20:57)
[2017-02-15] MEDS: ACCU-CHEK XX SCH (02:02)
[2017-02-15 02:44] VITALS: BP 131/62; RESP 18
[2017-02-15] MEDS: VANCOMYCIN 1.5 GM in SOD CHLORIDE 0.9% 250 ML IVPB SCH (05:17)
[2017-02-15 08:00] VITALS: BP 134/90; RESP 18
[2017-02-15] MEDS: FLUCONAZOLE 200 MG TAB PO SCH (08:01)
[2017-02-15] MEDS: FAMOTIDINE 20 MG INJ IV SCH ×2 (08:01→21:12)
[2017-02-15] MEDS: CEFTRIAXONE 1 GM/50 ML (PMX) 50 ML IVPB SCH (08:01)
[2017-02-15] MEDS: CILOSTAZOL 100 MG TAB PO SCH ×2 (08:01→21:12)
[2017-02-15] MEDS: LINAGLIPTIN 5 MG TABLET PO SCH (08:02)
[2017-02-15] MEDS: ASPIRIN (EC) 81 MG TAB PO SCH (08:02)
[2017-02-15] MEDS: metFORMIN 500 MG TAB PO SCH ×2 (08:02→17:52)
[2017-02-15] MEDS: CLOPIDOGREL 75 MG TAB PO SCH (08:02)
[2017-02-15] MEDS: ENOXAPARIN 30 MG/0.3 ML SYG SC SCH (08:03)
[2017-02-15] MEDS: INSULIN ASPART [NOVOLOG] 3 ML PEN SC SCH ×7 (08:04→21:00)
--- NOTE | 2017-02-15 11:49 | PN ---
Date/Time of Note Date/Time of Note DATE: 02/15/17 TIME: 11:46 Assessment/Plan Lines/Catheters IV Catheter Type (from [facility]): PICC Line Urinary Cath still in place: No Assessment/Plan Assessment/Plan -Right third toe left great toe ulcers with osteomyelitis of the right foot toe , status post excisional debridement of the right third toe and the left big toe on 02/[address] Raya, podiatry. is following in infection disease consultation. Continue antibiotics per ID. -Severe peripheral arterial disease. Dr. San in vascular surgery consultation, vascular interventions planned. -Urinary tract infection per UA, status post treatment. -Hypertension -Hyperlipidemia -Hyperglycemia in patient with diabetes mellitus type 2. hemoglobin A1c is 10.8. Continue Lantus and pre-meal NovoLog. Dr. Cornejo is following in endocrinology consultation. -Obesity Further recommendations based on clinical course. Plan of care discussed with Dr. Garcia Subjective 24 Hr Interval Summary Free Text/Dictation -nad- sitting up in chair - sp PICC line placement for long-term antibiotics - creatinine is 1.19 today- sp IVF, no bmp today- fu If creatinine stable patient can be discharged home with home health IV services on vancomycin IV pharmacy to dose and 500 p.o. Levaquin for 4 weeks, home health for wound care, follow-up with Dr. Lee, flight test shop mechanic. - no new events reported overnight Cardiovascular: no complaints Gastrointestinal: no complaints Genitourinary: no complaints Musculoskeletal: no complaints Exam/Review of Systems Vital Signs Vitals Vital Signs Date Time Temp Pulse Resp B/P Pulse Ox O2 Delivery O2 Flow Rate FiO2 02/15/17 08:00 98.6 74 18 134/90 96 Intake and Output 02/14/17 02/14/17 02/15/17 15:00 23:00 07:00 Intake Total 300 ml 950 ml 1080 ml Balance 300 ml 950 ml 1080 ml Results Result Diagram: 02/14/17 0532 02/14/17 0532 Results 24 hrs Laboratory Tests Test 02/14/17 13:37 02/14/17 17:25 02/14/17 20:53 02/15/17 02:01 Bedside Glucose 99 121 96 104 Test 02/15/17 08:00 Bedside Glucose 145 Medications Medications Current Medications Ondansetron HCl (Zofran Inj) 4 mg Q6H PRN IV NAUSEA AND/OR VOMITING Last administered on 02/07/17 11:37; Admin Dose 4 MG; Start 02/04/17 at 19:30 Acetaminophen (Tylenol Tab) 650 mg Q6H PRN PO PAIN LEVEL 1-3 OR FEVER; Start 02/04/17 at 19:30 Morphine Sulfate (morphine) 2 mg Q4H PRN IV SEVERE PAIN LEVEL 7-10 Last administered on 02/13/17 21:00; Admin Dose 2 MG; Start 02/04/17 at 19:30 Famotidine (Pepcid Iv) 20 mg Q12 IV Last administered on 02/15/17 08:01; Admin Dose 20 MG; Start 02/04/17 at 21:00 Enoxaparin Sodium 30 mg 30 mg DAILY SC Last administered on 02/15/17 08:03; Admin Dose 30 MG; Start 02/05/17 at 09:00 Ceftriaxone Sodium (Rocephin) 50 ml @ 100 mls/hr DAILY IVPB Last administered on 02/15/17 08:01; Admin Dose 100 MLS/HR; Start 02/05/17 at 15:00 Aspirin (Halfprin) 81 mg DAILY PO Last administered on 02/15/17 08:02; Admin Dose 81 MG; Start 02/05/17 at 09:00 Atorvastatin Calcium (Lipitor) 40 mg HS PO Last administered on 02/14/17 20: 54; Admin Dose 40 MG; Start 02/05/17 at 21:00 Clopidogrel Bisulfate (plaVIX) 75 mg DAILY PO Last administered on 02/15/17 08:02; Admin Dose 75 MG; Start 02/05/17 at 09:00 Tramadol HCl (Ultram) 50 mg Q6H PRN PO PAIN LEVEL 1-5 Last administered on 03:40; Admin Dose 50 MG; Start 02/04/17 at 22:30 Clonidine (Catapres) 0.1 mg Q6H PRN PO ELEVATED BLOOD PRESSURE; Start at 23:00 Miscellaneous Information 1 ea NOTE XX ; Start 02/04/17 at 23:00 Glucose (Glutose) 15 gm Q15M PRN PO DECREASED GLUCOSE; Start 02/04/17 at 23:00 Glucose (Glutose) 22.5 gm Q15M PRN PO DECREASED GLUCOSE; Start 02/04/17 at 23: 00 Dextrose (D50w Syringe) 25 ml Q15M PRN IV DECREASED GLUCOSE; Start 02/04/17 at 23:00 Dextrose (D50w Syringe) 50 ml Q15M PRN IV DECREASED GLUCOSE; Start 02/04/17 at 23:00 Glucagon (Glucagen) 1 mg Q15M PRN IM DECREASED GLUCOSE; Start 02/04/17 at 23: 00 Glucose (Glutose) 15 gm Q15M PRN BUCCAL DECREASED GLUCOSE; Start 02/04/17 at 23:00 Diagnostic Test (Pha) (Accu-Chek) 1 ea 02 XX Last administered on 02/15/17 02 :02; Admin Dose 1 EA; Start 02/06/17 at 02:00 Insulin Glargine (Lantus) 17 unit DAILY@20 SC Last administered on 02/14/17 20:57; Admin Dose 17 UNIT; Start 02/05/17 at 20:00 Fluconazole (Diflucan) 200 mg DAILY PO Last administered on 02/15/17 08:01; Admin Dose 200 MG; Start 02/06/17 at 09:00 Lidocaine (Lmx 4% Plus) 1 applic PRN PRN TOP W/ DRESSING CHANGES PRN PAIN; Start 02/06/17 at 08:00 Gentamicin Sulfate (Gentamicin 0.1% Oint) 1 applic DAILY TOP Last administered on 02/14/17 08:34; Admin Dose 1 APPLIC; Start 02/09/17 at 09:00 Sodium Hypochlorite (Dakin'S (Dilute 1/40%)) 1 applic DAILY TOP Last administered on 02/14/17 08:34; Admin Dose 1 APPLIC; Start 02/09/17 at 09:00 Cilostazol 50 mg 50 mg BID PO Last administered on 02/15/17 08:01; Admin Dose 50 MG; Start 02/10/17 at 21:00 Vancomycin HCl/ Sodium Chloride (Vancocin/NS) 250 ml @ 83.333 mls/ hr Q24H IVPB Last administered on 02/15/17 05:17; Admin Dose 83.333 MLS/HR; Start at 06:00 IV Flush 10 ml 10 ml PRN PRN IV IV PROTOCOL; Start 02/14/17 at 13:30 Sodium Chloride (1/2 NS) 1,000 ml @ 60 mls/hr [id number] IV Last administered on 02/14/17t 16:23; Admin Dose 60 MLS/HR; Start 02/14/17 at 16:00 Miscellaneous Information (*Rx Drug Level Order Reminder*) VANCOMYCIN TROUGH ON @ .. ONCE ONCE XX ; Start 02/16/17 at 05:00; Stop 02/16/17 at 05:01 CALEB REINOSO Feb 15, 2017 11:49
--- NOTE | 2017-02-15 12:02 | PDOCDIS ---
Discharge Instructions HOME CARE INSTRUCTIONS: Special Diet: CC CALEB REINOSO Feb 15, 2017 12:02
[2017-02-15] MEDS: GENTAMICIN 0.1% 15 GM OINT TOP SCH (12:10)
[2017-02-15] MEDS: SODIUM HYPOCHLORITE 1/40% 1L IRRIG TOP SCH (12:10)
[2017-02-15] MEDS: SOD CHLORIDE 0.45% 1,000 ML IV SCH (12:17)
--- NOTE | 2017-02-15 13:58 | CONS ---
Date/Time of Note Date/Time of Note DATE: 02/15/17 TIME: 13:56 Assessment/Plan Assessment/Plan Problems: (1) Type 2 diabetes mellitus with foot ulcer Status: Chronic Comment: Good glycemic control continues. Cont. current insulin doses and pt. will require sq insulin therapy after d/c. Qualifiers: Diabetes mellitus alf insulin use: without alf use Qualified Code: E11.621 - Type 2 diabetes mellitus with foot ulcer, without long-term current use of insulin Consultation Date/Type/Reason Admit Date/Time Feb 04, 2017 at 17:34 Initial Consult Date 02/07/17 Type of Consultation: Endocrinology Reason for Consultation T2DM management Referring Provider: JOSE RANGEL 24 HR Interval Summary Constitutional: improved, no complaints Detailed Summary Respiratory: no complaints Cardiovascular: no complaints Gastrointestinal: pain (epigastrium, intermittent) Genitourinary: no complaints Musculoskeletal: no complaints Neurologic: no complaints Exam/Review of Systems Vital Signs Vitals VS - Last 72 Hours, by Label Date Time Temp Pulse Resp B/P Pulse Ox O2 Delivery O2 Flow Rate FiO2 02/15/17 08:00 98.6 74 18 134/90 96 02/15/17 02:44 98.6 53 18 131/62 96 02/14/17 20:47 98.1 69 21 154/64 100 02/14/17 14:00 98.2 96 17 126/60 100 02/14/17 08:32 98.6 100 18 135/71 97 02/14/17 02:06 98.2 50 18 117/53 96 02/13/17 19:51 98.3 55 18 139/65 99 02/13/17 14:40 98.0 64 18 118/58 99 02/13/17 07:55 98.1 104 16 118/58 97 02/13/17 01:58 99.0 64 18 114/55 95 02/12/17 21:00 155/69 02/12/17 20:00 98.2 55 17 169/70 98 Vital Signs Date Time Temp Pulse Resp B/P Pulse Ox O2 Delivery O2 Flow Rate FiO2 02/15/17 08:00 98.6 74 18 134/90 96 Intake and Output 02/14/17 02/14/17 02/15/17 15:00 23:00 07:00 Intake Total 300 ml 950 ml 1080 ml Balance 300 ml 950 ml 1080 ml Exam Constitutional: alert, obese, oriented Respiratory: clear to auscultation, normal air movement Cardiovascular: nl pulses, regular rate and rhythm, No edema, No murmurs/extra sounds, No rub Gastrointestinal: bowel sounds, nl liver, spleen, non-tender, soft, No mass, No rebound or guarding Musculoskeletal: No nl extremities to inspection (B feet wrapped) Extremities: No clubbing, No cyanosis, No edema 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, nl mental status, nl speech, nl strength Additional Comments Bedside Glucose - 72 Hours Test 02/12/17 17:53 02/12/17 20:16 02/13/17 07:41 02/13/17 11:52 Bedside Glucose 106mg/dL (70-220) 120mg/dL (70-220) 131mg/dL (70-220) 164mg/dL (70-220) Test 02/13/17 17:05 02/13/17 20:58 02/14/17 08:11 02/14/17 13:37 Bedside Glucose 108mg/dL (70-220) 89mg/dL (70-220) 123mg/dL (70-220) 99mg/dL (70-220) Test 02/14/17 17:25 02/14/17 20:53 02/15/17 02:01 02/15/17 08:00 Bedside Glucose 121mg/dL (70-220) 96mg/dL (70-220) 104mg/dL (70-220) 145mg/dL (70-220) Test 02/15/17 12:14 Bedside Glucose 88mg/dL (70-220) Results Result Diagram: 02/14/17 0532 02/14/17 0532 Results 24 hrs Laboratory Tests Test 02/14/17 17:25 02/14/17 20:53 02/15/17 02:01 02/15/17 08:00 Bedside Glucose 121 96 104 145 Test 02/15/17 12:14 Bedside Glucose 88 Medications Medications Current Medications Ondansetron HCl (Zofran Inj) 4 mg Q6H PRN IV NAUSEA AND/OR VOMITING Last administered on 02/07/17t 11:37; Admin Dose 4 MG; Start 02/04/17 at 19:30 Acetaminophen (Tylenol Tab) 650 mg Q6H PRN PO PAIN LEVEL 1-3 OR FEVER; Start 02/04/17 at 19:30 Morphine Sulfate (morphine) 2 mg Q4H PRN IV SEVERE PAIN LEVEL 7-10 Last administered on 02/13/17 21:00; Admin Dose 2 MG; Start 02/04/17 at 19:30 Famotidine (Pepcid Iv) 20 mg Q12 IV Last administered on 02/15/17 08:01; Admin Dose 20 MG; Start 02/04/17 at 21:00 Enoxaparin Sodium 30 mg 30 mg DAILY SC Last administered on 02/15/17 08:03; Admin Dose 30 MG; Start 02/05/17 at 09:00 Ceftriaxone Sodium (Rocephin) 50 ml @ 100 mls/hr DAILY IVPB Last administered on 02/15/17 08:01; Admin Dose 100 MLS/HR; Start 02/05/17 at 15:00 Aspirin (Halfprin) 81 mg DAILY PO Last administered on 02/15/17 08:02; Admin Dose 81 MG; Start 02/05/17 at 09:00 Atorvastatin Calcium (Lipitor) 40 mg HS PO Last administered on 02/14/17 20: 54; Admin Dose 40 MG; Start 02/05/17 at 21:00 Clopidogrel Bisulfate (plaVIX) 75 mg DAILY PO Last administered on 02/15/17 08:02; Admin Dose 75 MG; Start 02/05/17 at 09:00 Tramadol HCl (Ultram) 50 mg Q6H PRN PO PAIN LEVEL 1-5 Last administered on 03:40; Admin Dose 50 MG; Start 02/04/17 at 22:30 Clonidine (Catapres) 0.1 mg Q6H PRN PO ELEVATED BLOOD PRESSURE; Start at 23:00 Miscellaneous Information 1 ea NOTE XX ; Start 02/04/17 at 23:00 Glucose (Glutose) 15 gm Q15M PRN PO DECREASED GLUCOSE; Start 02/04/17 at 23:00 Glucose (Glutose) 22.5 gm Q15M PRN PO DECREASED GLUCOSE; Start 02/04/17 at 23: 00 Dextrose (D50w Syringe) 25 ml Q15M PRN IV DECREASED GLUCOSE; Start 02/04/17 at 23:00 Dextrose (D50w Syringe) 50 ml Q15M PRN IV DECREASED GLUCOSE; Start 02/04/17 at 23:00 Glucagon (Glucagen) 1 mg Q15M PRN IM DECREASED GLUCOSE; Start 02/04/17 at 23: 00 Glucose (Glutose) 15 gm Q15M PRN BUCCAL DECREASED GLUCOSE; Start 02/04/17 at 23:00 Diagnostic Test (Pha) (Accu-Chek) 1 ea 02 XX Last administered on 02/15/17 02 :02; Admin Dose 1 EA; Start 02/06/17 at 02:00 Insulin Glargine (Lantus) 17 unit DAILY@20 SC Last administered on 02/14/17 20:57; Admin Dose 17 UNIT; Start 02/05/17 at 20:00 Fluconazole (Diflucan) 200 mg DAILY PO Last administered on 02/15/17 08:01; Admin Dose 200 MG; Start 02/06/17 at 09:00 Lidocaine (Lmx 4% Plus) 1 applic PRN PRN TOP W/ DRESSING CHANGES PRN PAIN; Start 02/06/17 at 08:00 Gentamicin Sulfate (Gentamicin 0.1% Oint) 1 applic DAILY TOP Last administered on 02/15/17 12:10; Admin Dose 1 APPLIC; Start 02/09/17 at 09:00 Sodium Hypochlorite (Dakin'S (Dilute 1/40%)) 1 applic DAILY TOP Last administered on 02/15/17 12:10; Admin Dose 1 APPLIC; Start 02/09/17 at 09:00 Cilostazol 50 mg 50 mg BID PO Last administered on 02/15/17 08:01; Admin Dose 50 MG; Start 02/10/17 at 21:00 Vancomycin HCl/ Sodium Chloride (Vancocin/NS) 250 ml @ 83.333 mls/ hr Q24H IVPB Last administered on 02/15/17 05:17; Admin Dose 83.333 MLS/HR; Start at 06:00 IV Flush 10 ml 10 ml PRN PRN IV IV PROTOCOL; Start 02/14/17 at 13:30 Sodium Chloride (1/2 NS) 1,000 ml @ 60 mls/hr [id number] IV Last administered on 02/15/17 12:17; Admin Dose 60 MLS/HR; Start 02/14/17 at 16:00 Miscellaneous Information (*Rx Drug Level Order Reminder*) VANCOMYCIN TROUGH ON @ .. ONCE ONCE XX ; Start 02/16/17 at 05:00; Stop 02/16/17 at 05:01 ARTURO HANCOCK MD Feb 15, 2017 13:58
--- NOTE | 2017-02-15 14:00 | CONS ---
Date/Time of Note Date/Time of Note DATE: 02/15/17 TIME: 13:58 Assessment/Plan Assessment/Plan Chief Complaint/Hosp Course SUBJECTIVE: Alert, feels good, looks comfortable MICROBIOLOGY: Wound culture negative ANTIMICROBIALS: 1. Vancomycin 2. Rocephin. 3. Diflucan PHYSICAL EXAMINATION: GENERAL: Well-developed elderly woman in no distress. HEENT: Head atraumatic, normocephalic. Sclerae anicteric. Buccal mucosa pink. NECK: Supple. CHEST: Rise symmetrical. Breath sounds clear. HEART: S1, S2. ABDOMEN: Soft. Bowel tones present. ASSESSMENT: 1. Bilateral diabetic foot ulcerations with exposed bone of the left toe, status post incision and drainage. 2. Diabetes. 3. Diabetes neuropathy. 4. Positive urinalysis on admission PLAN: The patient remains stable. Per discussion with Dr. Lee will treat patient for total of 6 weeks IV antibiotics we will downgrade her to p.o. Levaquin, continue IV vancomycin [facility] staff Problems: Consultation Date/Type/Reason Admit Date/Time Feb 04, 2017 at 17:34 Initial Consult Date 02/07/17 Type of Consultation: id Referring Provider: JOSE RANGEL Exam/Review of Systems Vital Signs Vitals Vital Signs Date Time Temp Pulse Resp B/P Pulse Ox O2 Delivery O2 Flow Rate FiO2 02/15/17 08:00 98.6 74 18 134/90 96 Intake and Output 02/14/17 02/14/17 02/15/17 15:00 23:00 07:00 Intake Total 300 ml 950 ml 1080 ml Balance 300 ml 950 ml 1080 ml Results Result Diagram: 02/14/17 0532 02/14/17 0532 Results 24 hrs Laboratory Tests Test 02/14/17 17:25 02/14/17 20:53 02/15/17 02:01 02/15/17 08:00 Bedside Glucose 121 96 104 145 Test 02/15/17 12:14 Bedside Glucose 88 Medications Medications Current Medications Ondansetron HCl (Zofran Inj) 4 mg Q6H PRN IV NAUSEA AND/OR VOMITING Last administered on 02/07/17t 11:37; Admin Dose 4 MG; Start 02/04/17 at 19:30 Acetaminophen (Tylenol Tab) 650 mg Q6H PRN PO PAIN LEVEL 1-3 OR FEVER; Start 02/04/17 at 19:30 Morphine Sulfate (morphine) 2 mg Q4H PRN IV SEVERE PAIN LEVEL 7-10 Last administered on 02/13/17 21:00; Admin Dose 2 MG; Start 02/04/17 at 19:30 Famotidine (Pepcid Iv) 20 mg Q12 IV Last administered on 02/15/17 08:01; Admin Dose 20 MG; Start 02/04/17 at 21:00 Enoxaparin Sodium 30 mg 30 mg DAILY SC Last administered on 02/15/17 08:03; Admin Dose 30 MG; Start 02/05/17 at 09:00 Ceftriaxone Sodium (Rocephin) 50 ml @ 100 mls/hr DAILY IVPB Last administered on 02/15/17 08:01; Admin Dose 100 MLS/HR; Start 02/05/17 at 15:00 Aspirin (Halfprin) 81 mg DAILY PO Last administered on 02/15/17 08:02; Admin Dose 81 MG; Start 02/05/17 at 09:00 Atorvastatin Calcium (Lipitor) 40 mg HS PO Last administered on 02/14/17 20: 54; Admin Dose 40 MG; Start 02/05/17 at 21:00 Clopidogrel Bisulfate (plaVIX) 75 mg DAILY PO Last administered on 02/15/17 08:02; Admin Dose 75 MG; Start 02/05/17 at 09:00 Tramadol HCl (Ultram) 50 mg Q6H PRN PO PAIN LEVEL 1-5 Last administered on 03:40; Admin Dose 50 MG; Start 02/04/17 at 22:30 Clonidine (Catapres) 0.1 mg Q6H PRN PO ELEVATED BLOOD PRESSURE; Start at 23:00 Miscellaneous Information 1 ea NOTE XX ; Start 02/04/17 at 23:00 Glucose (Glutose) 15 gm Q15M PRN PO DECREASED GLUCOSE; Start 02/04/17 at 23:00 Glucose (Glutose) 22.5 gm Q15M PRN PO DECREASED GLUCOSE; Start 02/04/17 at 23: 00 Dextrose (D50w Syringe) 25 ml Q15M PRN IV DECREASED GLUCOSE; Start 02/04/17 at 23:00 Dextrose (D50w Syringe) 50 ml Q15M PRN IV DECREASED GLUCOSE; Start 02/04/17 at 23:00 Glucagon (Glucagen) 1 mg Q15M PRN IM DECREASED GLUCOSE; Start 02/04/17 at 23: 00 Glucose (Glutose) 15 gm Q15M PRN BUCCAL DECREASED GLUCOSE; Start 02/04/17 at 23:00 Diagnostic Test (Pha) (Accu-Chek) 1 ea 02 XX Last administered on 02/15/17 02 :02; Admin Dose 1 EA; Start 02/06/17 at 02:00 Insulin Glargine (Lantus) 17 unit DAILY@20 SC Last administered on 02/14/17 20:57; Admin Dose 17 UNIT; Start 02/05/17 at 20:00 Fluconazole (Diflucan) 200 mg DAILY PO Last administered on 02/15/17 08:01; Admin Dose 200 MG; Start 02/06/17 at 09:00 Lidocaine (Lmx 4% Plus) 1 applic PRN PRN TOP W/ DRESSING CHANGES PRN PAIN; Start 02/06/17 at 08:00 Gentamicin Sulfate (Gentamicin 0.1% Oint) 1 applic DAILY TOP Last administered on 02/15/17 12:10; Admin Dose 1 APPLIC; Start 02/09/17 at 09:00 Sodium Hypochlorite (Dakin'S (Dilute 1/40%)) 1 applic DAILY TOP Last administered on 02/15/17 12:10; Admin Dose 1 APPLIC; Start 02/09/17 at 09:00 Cilostazol 50 mg 50 mg BID PO Last administered on 02/15/17 08:01; Admin Dose 50 MG; Start 02/10/17 at 21:00 Vancomycin HCl/ Sodium Chloride (Vancocin/NS) 250 ml @ 83.333 mls/ hr Q24H IVPB Last administered on 02/15/17 05:17; Admin Dose 83.333 MLS/HR; Start at 06:00 IV Flush 10 ml 10 ml PRN PRN IV IV PROTOCOL; Start 02/14/17 at 13:30 Sodium Chloride (1/2 NS) 1,000 ml @ 60 mls/hr [id number] IV Last administered on 02/15/17 12:17; Admin Dose 60 MLS/HR; Start 02/14/17 at 16:00 Miscellaneous Information (*Rx Drug Level Order Reminder*) VANCOMYCIN TROUGH ON @ .. ONCE ONCE XX ; Start 02/16/17 at 05:00; Stop 02/16/17 at 05:01 JOSELITO AGARWAL NP Feb 15, 2017 14:00
[2017-02-15 17:40] LABS: CALCIUM 9.1 mg/dl (8.4-10.2); POTASSIUM 4.1 mmol/L (3.5-5.1)
[2017-02-15] MEDS: INSULIN GLARGINE [LANtus] 3 ML PEN SC SCH (20:02)
[2017-02-15 20:16] VITALS: BP 162/72; RESP 19
[2017-02-15] MEDS: ATORVASTATIN 40 MG TAB PO SCH (21:12)
[2017-02-15 23:30] VITALS: BP 138/75; PULSE 79; RESP 18
[2017-02-16] MEDS: ACCU-CHEK XX SCH (02:00)
[2017-02-16 02:21] VITALS: BP 91/45; RESP 20
[2017-02-16] MEDS: SOD CHLORIDE 0.45% 1,000 ML IV SCH ×2 (05:24→17:03)
[2017-02-16] MEDS: LEVOFLOXACIN 500 MG TAB PO SCH (05:25)
[2017-02-16] MEDS: VANCOMYCIN 1.5 GM in SOD CHLORIDE 0.9% 250 ML IVPB SCH (06:42)
[2017-02-16 07:50] VITALS: BP 140/63; RESP 18
[2017-02-16] MEDS: LINAGLIPTIN 5 MG TABLET PO SCH (08:11)
[2017-02-16] MEDS: metFORMIN 500 MG TAB PO SCH ×2 (08:11→17:03)
[2017-02-16] MEDS: FAMOTIDINE 20 MG INJ IV SCH ×2 (08:28→20:54)
[2017-02-16] MEDS: ASPIRIN (EC) 81 MG TAB PO SCH (08:30)
[2017-02-16] MEDS: CLOPIDOGREL 75 MG TAB PO SCH (08:30)
[2017-02-16] MEDS: CILOSTAZOL 100 MG TAB PO SCH ×2 (08:30→20:54)
[2017-02-16] MEDS: SODIUM HYPOCHLORITE 1/40% 1L IRRIG TOP SCH (08:31)
[2017-02-16] MEDS: GENTAMICIN 0.1% 15 GM OINT TOP SCH (08:32)
[2017-02-16] MEDS: INSULIN ASPART [NOVOLOG] 3 ML PEN SC SCH ×7 (08:37→21:00)
[2017-02-16] MEDS: ENOXAPARIN 30 MG/0.3 ML SYG SC SCH (08:38)
[2017-02-16] MEDS: FLUCONAZOLE 200 MG TAB PO SCH (08:42)
[2017-02-16 14:11] VITALS: BP 123/56; RESP 18
--- NOTE | 2017-02-16 14:52 | CONS ---
Date/Time of Note Date/Time of Note DATE: 02/16/17 TIME: 14:52 Assessment/Plan Assessment/Plan Chief Complaint/Hosp Course SUBJECTIVE: Alert, feels good, looks comfortable MICROBIOLOGY: Wound culture negative ANTIMICROBIALS: 1. Vancomycin 2. Levaquin. 3. Diflucan PHYSICAL EXAMINATION: GENERAL: Well-developed elderly woman in no distress. HEENT: Head atraumatic, normocephalic. Sclerae anicteric. Buccal mucosa pink. NECK: Supple. CHEST: Rise symmetrical. Breath sounds clear. HEART: S1, S2. ABDOMEN: Soft. Bowel tones present. ASSESSMENT: 1. Bilateral diabetic foot ulcerations with exposed bone of the left toe, status post incision and drainage. 2. Diabetes. 3. Diabetes neuropathy. 4. Positive urinalysis on admission PLAN: The patient remains stable. Per discussion with Dr. Lee will treat patient for total of 6 weeks IV antibiotics [facility] staff Problems: Consultation Date/Type/Reason Admit Date/Time Feb 04, 2017 at 17:34 Initial Consult Date 02/07/17 Type of Consultation: id Referring Provider: JOSE RANGEL Exam/Review of Systems Vital Signs Vitals Vital Signs Date Time Temp Pulse Resp B/P Pulse Ox O2 Delivery O2 Flow Rate FiO2 02/16/17 14:11 100.2 109 18 123/56 98 02/15/17 23:30 Room Air Intake and Output 02/15/17 02/15/17 02/16/17 14:59 22:59 06:59 Intake Total 550 ml 1553 ml 1490 ml Balance 550 ml 1553 ml 1490 ml Results Result Diagram: 02/14/17 0532 02/15/17 1655 Results 24 hrs Laboratory Tests Test 02/15/17 16:55 02/15/17 17:23 02/15/17 19:53 02/15/17 21:11 Sodium Level 139 Potassium Level 4.1 Chloride Level 104 Carbon Dioxide Level 25 Anion Gap 14 Blood Urea Nitrogen 12 Creatinine 1.00 Glucose Level 104 Calcium Level 9.1 Bedside Glucose 93 91 98 Test 02/16/17 04:52 02/16/17 08:10 02/16/17 12:14 Vancomycin Level Trough 14.0 Bedside Glucose 165 141 Medications Medications Current Medications Ondansetron HCl (Zofran Inj) 4 mg Q6H PRN IV NAUSEA AND/OR VOMITING Last administered on 02/07/17 11:37; Admin Dose 4 MG; Start 02/04/17 at 19:30 Acetaminophen (Tylenol Tab) 650 mg Q6H PRN PO PAIN LEVEL 1-3 OR FEVER; Start 02/04/17 at 19:30 Morphine Sulfate (morphine) 2 mg Q4H PRN IV SEVERE PAIN LEVEL 7-10 Last administered on 02/13/17 21:00; Admin Dose 2 MG; Start 02/04/17 at 19:30 Famotidine (Pepcid Iv) 20 mg Q12 IV Last administered on 02/16/17 08:28; Admin Dose 20 MG; Start 02/04/17 at 21:00 Enoxaparin Sodium (Lovenox) 30 mg DAILY SC Last administered on 02/16/17 08: 38; Admin Dose 30 MG; Start 02/05/17 at 09:00 Aspirin (Halfprin) 81 mg DAILY PO Last administered on 02/16/17 08:30; Admin Dose 81 MG; Start 02/05/17 at 09:00 Atorvastatin Calcium (Lipitor) 40 mg HS PO Last administered on 02/15/17 21: 12; Admin Dose 40 MG; Start 02/05/17 at 21:00 Clopidogrel Bisulfate (plaVIX) 75 mg DAILY PO Last administered on 02/16/17 08:30; Admin Dose 75 MG; Start 02/05/17 at 09:00 Tramadol HCl (Ultram) 50 mg Q6H PRN PO PAIN LEVEL 1-5 Last administered on 03:40; Admin Dose 50 MG; Start 02/04/17 at 22:30 Clonidine (Catapres) 0.1 mg Q6H PRN PO ELEVATED BLOOD PRESSURE Last administered on 02/15/17 21:12; Admin Dose 0.1 MG; Start 02/04/17 at 23:00 Miscellaneous Information 1 ea NOTE XX ; Start 02/04/17 at 23:00 Glucose (Glutose) 15 gm Q15M PRN PO DECREASED GLUCOSE; Start 02/04/17 at 23:00 Glucose (Glutose) 22.5 gm Q15M PRN PO DECREASED GLUCOSE; Start 02/04/17 at 23: 00 Dextrose (D50w Syringe) 25 ml Q15M PRN IV DECREASED GLUCOSE; Start 02/04/17 at 23:00 Dextrose (D50w Syringe) 50 ml Q15M PRN IV DECREASED GLUCOSE; Start 02/04/17 at 23:00 Glucagon (Glucagen) 1 mg Q15M PRN IM DECREASED GLUCOSE; Start 02/04/17 at 23: 00 Glucose (Glutose) 15 gm Q15M PRN BUCCAL DECREASED GLUCOSE; Start 02/04/17 at 23:00 Diagnostic Test (Pha) (Accu-Chek) 1 ea 02 XX Last administered on 02/15/17 02 :02; Admin Dose 1 EA; Start 02/06/17 at 02:00 Insulin Glargine (Lantus) 17 unit DAILY@20 SC Last administered on 02/15/17 20:02; Admin Dose 17 UNIT; Start 02/05/17 at 20:00 Fluconazole (Diflucan) 200 mg DAILY PO Last administered on 02/16/17 08:42; Admin Dose 200 MG; Start 02/06/17 at 09:00 Lidocaine (Lmx 4% Plus) 1 applic PRN PRN TOP W/ DRESSING CHANGES PRN PAIN; Start 02/06/17 at 08:00 Gentamicin Sulfate (Gentamicin 0.1% Oint) 1 applic DAILY TOP Last administered on 02/16/17 08:32; Admin Dose 1 APPLIC; Start 02/09/17 at 09:00 Sodium Hypochlorite (Dakin'S (Dilute 1/40%)) 1 applic DAILY TOP Last administered on 02/16/17 08:31; Admin Dose 1 APPLIC; Start 02/09/17 at 09:00 Cilostazol 50 mg 50 mg BID PO Last administered on 02/16/17 08:30; Admin Dose 50 MG; Start 02/10/17 at 21:00 Vancomycin HCl/ Sodium Chloride (Vancocin/NS) 250 ml @ 83.333 mls/ hr Q24H IVPB Last administered on 02/16/17 06:42; Admin Dose 83.333 MLS/HR; Start at 06:00 IV Flush 10 ml 10 ml PRN PRN IV IV PROTOCOL; Start 02/14/17 at 13:30 Sodium Chloride (1/2 NS) 1,000 ml @ 60 mls/hr [id number] IV Last administered on 02/16/17 05:24; Admin Dose 60 MLS/HR; Start 02/14/17 at 16:00 Levofloxacin (Levaquin) 500 mg DAILY@06 PO Last administered on 02/16/17t 05: 25; Admin Dose 500 MG; Start 02/16/17 at 06:00 JOSELITO AGARWAL NP Feb 16, 2017 14:52
[2017-02-16] MEDS: IBUPROFEN 400 MG TAB PO PRN (16:07)
--- NOTE | 2017-02-16 17:49 | CONS ---
Date/Time of Note Date/Time of Note DATE: 02/16/17 TIME: 17:46 Assessment/Plan Assessment/Plan Problems: (1) Wheezing Status: Acute Comment: start albuterol and atrovent. Defer to primary team for ongoing management (2) Type 2 diabetes mellitus with foot ulcer Status: Chronic Comment: Excellent glycemic control on same insulin and oral DM meds initiated by primary team prior to my coming onto the case. Would continue these. Qualifiers: Diabetes mellitus fdc insulin use: without fdc use Qualified Code: E11.621 - Type 2 diabetes mellitus with foot ulcer, without long-term current use of insulin Consultation Date/Type/Reason Admit Date/Time Feb 04, 2017 at 17:34 Initial Consult Date 02/07/17 Type of Consultation: Endocrinology Reason for Consultation T2DM management Referring Provider: JOSE RANGEL 24 HR Interval Summary Constitutional: no complaints Detailed Summary Respiratory: cough, wheezing Cardiovascular: no complaints Gastrointestinal: no complaints Genitourinary: no complaints Musculoskeletal: no complaints Neurologic: no complaints Exam/Review of Systems Vital Signs Vitals VS - Last 72 Hours, by Label Date Time Temp Pulse Resp B/P Pulse Ox O2 Delivery O2 Flow Rate FiO2 02/16/17 14:11 100.2 109 18 123/56 98 02/16/17 07:50 98.6 61 18 140/63 98 02/16/17 02:21 98.7 96 20 91/45 96 02/15/17 23:30 98.1 79 18 138/75 98 Room Air 02/15/17 20:16 98.8 59 19 162/72 96 02/15/17 08:00 98.6 74 18 134/90 96 02/15/17 02:44 98.6 53 18 131/62 96 02/14/17 20:47 98.1 69 21 154/64 100 02/14/17 14:00 98.2 96 17 126/60 100 02/14/17 08:32 98.6 100 18 135/71 97 02/14/17 02:06 98.2 50 18 117/53 96 02/13/17 19:51 98.3 55 18 139/65 99 Vital Signs Date Time Temp Pulse Resp B/P Pulse Ox O2 Delivery O2 Flow Rate FiO2 02/16/17 14:11 100.2 109 18 123/56 98 02/15/17 23:30 Room Air Intake and Output 02/15/17 02/15/17 02/16/17 15:00 23:00 07:00 Intake Total 550 ml 1553 ml 1490 ml Balance 550 ml 1553 ml 1490 ml Exam Constitutional: alert, obese, oriented Respiratory: wheezing (diffusely B) Cardiovascular: regular rate and rhythm, No edema, No murmurs/extra sounds, No rub Gastrointestinal: bowel sounds, nl liver, spleen, non-tender, soft, No mass, No rebound or guarding Musculoskeletal: No nl extremities to inspection Extremities: No clubbing, No cyanosis, No edema 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, nl mental status, nl speech, nl strength Additional Comments Bedside Glucose - 72 Hours Test 02/13/17 20:58 02/14/17 08:11 02/14/17 13:37 02/14/17 17:25 Bedside Glucose 89mg/dL (70-220) 123mg/dL (70-220) 99mg/dL (70-220) 121mg/dL (70-220) Test 02/14/17 20:53 02/15/17 02:01 02/15/17 08:00 02/15/17 12:14 Bedside Glucose 96mg/dL (70-220) 104mg/dL (70-220) 145mg/dL (70-220) 88mg/dL (70-220) Test 02/15/17 17:23 02/15/17 19:53 02/15/17 21:11 02/16/17 08:10 Bedside Glucose 93mg/dL (70-220) 91mg/dL (70-220) 98mg/dL (70-220) 165mg/dL (70-220) Test 02/16/17 12:14 02/16/17 17:02 Bedside Glucose 141mg/dL (70-220) 166mg/dL (70-220) Results Result Diagram: 02/14/17 0532 02/15/17 1655 Results 24 hrs Laboratory Tests Test 02/15/17 19:53 02/15/17 21:11 02/16/17 04:52 02/16/17 08:10 Bedside Glucose 91 98 165 Vancomycin Level Trough 14.0 Test 02/16/17 12:14 02/16/17 17:02 Bedside Glucose 141 166 Medications Medications Current Medications Ondansetron HCl (Zofran Inj) 4 mg Q6H PRN IV NAUSEA AND/OR VOMITING Last administered on 02/07/17 11:37; Admin Dose 4 MG; Start 02/04/17 at 19:30 Acetaminophen (Tylenol Tab) 650 mg Q6H PRN PO PAIN LEVEL 1-3 OR FEVER; Start 02/04/17 at 19:30 Morphine Sulfate (morphine) 2 mg Q4H PRN IV SEVERE PAIN LEVEL 7-10 Last administered on 02/13/17 21:00; Admin Dose 2 MG; Start 02/04/17 at 19:30 Famotidine (Pepcid Iv) 20 mg Q12 IV Last administered on 02/16/17 08:28; Admin Dose 20 MG; Start 02/04/17 at 21:00 Enoxaparin Sodium (Lovenox) 30 mg DAILY SC Last administered on 02/16/17 08: 38; Admin Dose 30 MG; Start 02/05/17 at 09:00 Aspirin (Halfprin) 81 mg DAILY PO Last administered on 02/16/17 08:30; Admin Dose 81 MG; Start 02/05/17 at 09:00 Atorvastatin Calcium (Lipitor) 40 mg HS PO Last administered on 02/15/17 21: 12; Admin Dose 40 MG; Start 02/05/17 at 21:00 Clopidogrel Bisulfate (plaVIX) 75 mg DAILY PO Last administered on 02/16/17 08:30; Admin Dose 75 MG; Start 02/05/17 at 09:00 Tramadol HCl (Ultram) 50 mg Q6H PRN PO PAIN LEVEL 1-5 Last administered on 03:40; Admin Dose 50 MG; Start 02/04/17 at 22:30 Clonidine (Catapres) 0.1 mg Q6H PRN PO ELEVATED BLOOD PRESSURE Last administered on 02/15/17 21:12; Admin Dose 0.1 MG; Start 02/04/17 at 23:00 Miscellaneous Information 1 ea NOTE XX ; Start 02/04/17 at 23:00 Glucose (Glutose) 15 gm Q15M PRN PO DECREASED GLUCOSE; Start 02/04/17 at 23:00 Glucose (Glutose) 22.5 gm Q15M PRN PO DECREASED GLUCOSE; Start 02/04/17 at 23: 00 Dextrose (D50w Syringe) 25 ml Q15M PRN IV DECREASED GLUCOSE; Start 02/04/17 at 23:00 Dextrose (D50w Syringe) 50 ml Q15M PRN IV DECREASED GLUCOSE; Start 02/04/17 at 23:00 Glucagon (Glucagen) 1 mg Q15M PRN IM DECREASED GLUCOSE; Start 02/04/17 at 23: 00 Glucose (Glutose) 15 gm Q15M PRN BUCCAL DECREASED GLUCOSE; Start 02/04/17 at 23:00 Diagnostic Test (Pha) (Accu-Chek) 1 ea 02 XX Last administered on 02/15/17 02 :02; Admin Dose 1 EA; Start 02/06/17 at 02:00 Insulin Glargine (Lantus) 17 unit DAILY@20 SC Last administered on 02/15/17 20:02; Admin Dose 17 UNIT; Start 02/05/17 at 20:00 Fluconazole (Diflucan) 200 mg DAILY PO Last administered on 02/16/17 08:42; Admin Dose 200 MG; Start 02/06/17 at 09:00 Lidocaine (Lmx 4% Plus) 1 applic PRN PRN TOP W/ DRESSING CHANGES PRN PAIN; Start 02/06/17 at 08:00 Gentamicin Sulfate (Gentamicin 0.1% Oint) 1 applic DAILY TOP Last administered on 02/16/17 08:32; Admin Dose 1 APPLIC; Start 02/09/17 at 09:00 Sodium Hypochlorite (Dakin'S (Dilute 1/40%)) 1 applic DAILY TOP Last administered on 02/16/17 08:31; Admin Dose 1 APPLIC; Start 02/09/17 at 09:00 Cilostazol 50 mg 50 mg BID PO Last administered on 02/16/17 08:30; Admin Dose 50 MG; Start 02/10/17 at 21:00 Vancomycin HCl/ Sodium Chloride (Vancocin/NS) 250 ml @ 83.333 mls/ hr Q24H IVPB Last administered on 02/16/17 06:42; Admin Dose 83.333 MLS/HR; Start at 06:00 IV Flush 10 ml 10 ml PRN PRN IV IV PROTOCOL; Start 02/14/17 at 13:30 Sodium Chloride (1/2 NS) 1,000 ml @ 60 mls/hr [id number] IV Last administered on 02/16/17 05:24; Admin Dose 60 MLS/HR; Start 02/14/17 at 16:00 Levofloxacin (Levaquin) 500 mg DAILY@06 PO Last administered on 02/16/17 05: 25; Admin Dose 500 MG; Start 02/16/17 at 06:00 Ibuprofen (Motrin) 400 mg Q6H PRN PO TEMPERATURE OVER 101 Last administered on 02/16/17 16:07; Admin Dose 400 MG; Start 02/16/17 at 15:30 ARTURO HANCOCK MD Feb 16, 2017 17:49
[2017-02-16] MEDS ORDERED: IPRATROPIUM (NEB) 0.5 MG/2.5 ML AMP HHN PRN (18:00)
[2017-02-16 20:00] VITALS: BP 107/52; RESP 18
[2017-02-16] MEDS: INSULIN GLARGINE [LANtus] 3 ML PEN SC SCH (20:07)
[2017-02-16] MEDS: ATORVASTATIN 40 MG TAB PO SCH (20:54)
[2017-02-17 02:00] VITALS: BP 96/46; RESP 17
[2017-02-17] MEDS: ACCU-CHEK XX SCH ×2 (02:00→20:39)
[2017-02-17] MEDS: SOD CHLORIDE 0.45% 1,000 ML IV SCH ×2 (02:51→20:45)
[2017-02-17] MEDS: VANCOMYCIN 1.5 GM in SOD CHLORIDE 0.9% 250 ML IVPB SCH (06:07)
[2017-02-17] MEDS: LEVOFLOXACIN 500 MG TAB PO SCH (06:07)
--- NOTE | 2017-02-17 07:28 | CONS ---
Date/Time of Note Date/Time of Note DATE: 02/17/17 TIME: 07:26 Assessment/Plan Assessment/Plan Problems: (1) Type 2 diabetes mellitus with foot ulcer Status: Chronic Comment: Blood sugar control is very good on the current regimen I would not change this at this point in time. 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 Gregg Lee again and asked him to come by and repeat his evaluation given the patient's and the patient's family's request (3) Non-pressure chronic ulcer of other part of left foot with fat layer exposed Status: Chronic Comment: Noted. (4) Wheezing Status: Acute Comment: Improved and as per the management of the primary team (5) Osteomyelitis due to type 2 diabetes mellitus Status: Chronic Comment: On long-term antibiotics Consultation Date/Type/Reason Admit Date/Time Feb 04, 2017 at 17:34 Initial Consult Date 02/07/17 Type of Consultation: Endocrinology Reason for Consultation Diabetes mellitus type 2; osteomyelitis of foot; bilateral foot ulcers; Referring Provider: JOSE RANGEL 24 HR Interval Summary Free Text/Dictation Patient and patient's daughter vigorously describe new purulent discharge from underneath the right great toenail. They wish to have this reevaluated expeditiously. Constitutional: no complaints (Denies fevers chills or sweats) Detailed Summary Respiratory: no complaints (No further wheezing) Cardiovascular: no complaints Gastrointestinal: no complaints Exam/Review of Systems Vital Signs Vitals Vital Signs Date Time Temp Pulse Resp B/P Pulse Ox O2 Delivery O2 Flow Rate FiO2 02/17/17 02:00 97.4 95 17 96/46 97 02/15/17 23:30 Room Air Intake and Output 02/16/17 02/16/17 02/17/17 15:00 23:00 07:00 Intake Total 250 ml 600 ml 2080 ml Output Total 750 ml Balance 250 ml -150 ml 2080 ml Exam Constitutional: alert, oriented Neck: non-tender, supple Respiratory: clear to auscultation, normal air movement Cardiovascular: nl pulses, regular rate and rhythm Extremities: other (Bandaged and the nurse requests that we take off the bandages at a later point in time) Results Result Diagram: 02/14/17 0532 02/15/17 1655 Results 24 hrs Laboratory Tests Test 02/16/17 08:10 02/16/17 12:14 02/16/17 17:02 02/16/17 20:06 Bedside Glucose 165 141 166 122 Test 02/16/17 21:02 Bedside Glucose 91 Medications Medications Current Medications Ondansetron HCl (Zofran Inj) 4 mg Q6H PRN IV NAUSEA AND/OR VOMITING Last administered on 02/07/17 11:37; Admin Dose 4 MG; Start 02/04/17 at 19:30 Acetaminophen (Tylenol Tab) 650 mg Q6H PRN PO PAIN LEVEL 1-3 OR FEVER; Start 02/04/17 at 19:30 Morphine Sulfate (morphine) 2 mg Q4H PRN IV SEVERE PAIN LEVEL 7-10 Last administered on 02/13/17 21:00; Admin Dose 2 MG; Start 02/04/17 at 19:30 Famotidine (Pepcid Iv) 20 mg Q12 IV Last administered on 02/16/17 20:54; Admin Dose 20 MG; Start 02/04/17 at 21:00 Enoxaparin Sodium (Lovenox) 30 mg DAILY SC Last administered on 02/16/17 08: 38; Admin Dose 30 MG; Start 02/05/17 at 09:00 Aspirin (Halfprin) 81 mg DAILY PO Last administered on 02/16/17 08:30; Admin Dose 81 MG; Start 02/05/17 at 09:00 Atorvastatin Calcium (Lipitor) 40 mg HS PO Last administered on 02/16/17 20: 54; Admin Dose 40 MG; Start 02/05/17 at 21:00 Clopidogrel Bisulfate (plaVIX) 75 mg DAILY PO Last administered on 02/16/17 08:30; Admin Dose 75 MG; Start 02/05/17 at 09:00 Tramadol HCl (Ultram) 50 mg Q6H PRN PO PAIN LEVEL 1-5 Last administered on 03:40; Admin Dose 50 MG; Start 02/04/17 at 22:30 Clonidine (Catapres) 0.1 mg Q6H PRN PO ELEVATED BLOOD PRESSURE Last administered on 02/15/17 21:12; Admin Dose 0.1 MG; Start 02/04/17 at 23:00 Miscellaneous Information 1 ea NOTE XX ; Start 02/04/17 at 23:00 Glucose (Glutose) 15 gm Q15M PRN PO DECREASED GLUCOSE; Start 02/04/17 at 23:00 Glucose (Glutose) 22.5 gm Q15M PRN PO DECREASED GLUCOSE; Start 02/04/17 at 23: 00 Dextrose (D50w Syringe) 25 ml Q15M PRN IV DECREASED GLUCOSE; Start 02/04/17 at 23:00 Dextrose (D50w Syringe) 50 ml Q15M PRN IV DECREASED GLUCOSE; Start 02/04/17 at 23:00 Glucagon (Glucagen) 1 mg Q15M PRN IM DECREASED GLUCOSE; Start 02/04/17 at 23: 00 Glucose (Glutose) 15 gm Q15M PRN BUCCAL DECREASED GLUCOSE; Start 02/04/17 at 23:00 Diagnostic Test (Pha) (Accu-Chek) 1 ea 02 XX Last administered on 02/15/17 02 :02; Admin Dose 1 EA; Start 02/06/17 at 02:00 Insulin Glargine (Lantus) 17 unit DAILY@20 SC Last administered on 02/16/17 20:07; Admin Dose 17 UNIT; Start 02/05/17 at 20:00 Fluconazole (Diflucan) 200 mg DAILY PO Last administered on 02/16/17 08:42; Admin Dose 200 MG; Start 02/06/17 at 09:00 Lidocaine (Lmx 4% Plus) 1 applic PRN PRN TOP W/ DRESSING CHANGES PRN PAIN; Start 02/06/17 at 08:00 Gentamicin Sulfate (Gentamicin 0.1% Oint) 1 applic DAILY TOP Last administered on 02/16/17 08:32; Admin Dose 1 APPLIC; Start 02/09/17 at 09:00 Sodium Hypochlorite (Dakin'S (Dilute 1/40%)) 1 applic DAILY TOP Last administered on 02/16/17 08:31; Admin Dose 1 APPLIC; Start 02/09/17 at 09:00 Cilostazol 50 mg 50 mg BID PO Last administered on 02/16/17 20:54; Admin Dose 50 MG; Start 02/10/17 at 21:00 Vancomycin HCl/ Sodium Chloride (Vancocin/NS) 250 ml @ 83.333 mls/ hr Q24H IVPB Last administered on 02/17/17 06:07; Admin Dose 83.333 MLS/HR; Start at 06:00 IV Flush 10 ml 10 ml PRN PRN IV IV PROTOCOL; Start 02/14/17 at 13:30 Sodium Chloride (1/2 NS) 1,000 ml @ 60 mls/hr [id number] IV Last administered on 02/17/17 02:51; Admin Dose 60 MLS/HR; Start 02/14/17 at 16:00 Levofloxacin (Levaquin) 500 mg DAILY@06 PO Last administered on 02/17/17 06: 07; Admin Dose 500 MG; Start 02/16/17 at 06:00 Ibuprofen (Motrin) 400 mg Q6H PRN PO TEMPERATURE OVER 101 Last administered on 02/16/17 16:07; Admin Dose 400 MG; Start 02/16/17 at 15:30 JOSH CUNNINGHAM MD Feb 17, 2017 07:28
[2017-02-17 08:00] VITALS: BP_SYST 110; BP_DIAS 61; BP_DIAS 72; RESP 20
[2017-02-17] MEDS: INSULIN ASPART [NOVOLOG] 3 ML PEN SC SCH ×7 (08:00→20:36)
[2017-02-17] MEDS: metFORMIN 500 MG TAB PO SCH ×2 (08:17→17:26)
[2017-02-17] MEDS: LINAGLIPTIN 5 MG TABLET PO SCH (08:17)
[2017-02-17] MEDS: ENOXAPARIN 30 MG/0.3 ML SYG SC SCH (09:08)
[2017-02-17] MEDS: CILOSTAZOL 100 MG TAB PO SCH ×2 (09:08→20:39)
[2017-02-17] MEDS: FAMOTIDINE 20 MG INJ IV SCH ×2 (09:09→20:38)
[2017-02-17] MEDS: ASPIRIN (EC) 81 MG TAB PO SCH (09:09)
[2017-02-17] MEDS: FLUCONAZOLE 200 MG TAB PO SCH (09:09)
[2017-02-17] MEDS: CLOPIDOGREL 75 MG TAB PO SCH (09:09)
[2017-02-17] MEDS: SODIUM HYPOCHLORITE 1/40% 1L IRRIG TOP SCH (09:18)
--- NOTE | 2017-02-17 12:33 | CONS ---
DATE OF ADMISSION: 02/04/2017 DATE OF CONSULTATION: 02/17/2017 SUBJECTIVE FINDINGS: The patient is being followed for diabetic foot ulceration. She has had new d rainage beneath the right great toenail and I was asked to reevaluate. The patient denies any fever , nausea or vomiting. She is getting daily dressing changes for bilateral diabetic foot ulcerations . OBJECTIVE FINDINGS: VITAL SIGNS: Temperature 98.8, pulse 88, respiratory rate 20, blood pressure 110/72, pulse oximetry 94. GENERAL: The patient is alert, resting comfortably in no acute distress. RESPIRATORY: Regular respiration. EXTREMITIES: The right foot with onychogryphotic nails with drainage subungually, tenderness with p alpation, callus present to the periungual area. The patient's right second toe with ulceration, 5 x 4 mm, decreased erythema, no malodor. LABORATORY DATA: Left great toe culture is negative. ASSESSMENT: 1. Onychocryptosis, right hallux. 2. Onychogryphosis right great toe. 3. Pain. 4. Diabetic foot ulceration, right great toe. 5. Left hallux ulceration with osteomyelitis of distal phalanx. PLAN: Patient seen, evaluated and unable to assess reason for drainage. At this time debridement o f right great toenail in thickness and length, removing approximately 80% of the nail allowed visual ization. She had a superficial wound at the central part of the nail bed which had serous drainage. Once exposed, there was no purulent material. Adjacent sides of the nail there was ingrowing nail , this was removed and the wound cleansed with Betadine. The patient tolerated the procedure well. The patient is receiving tight glycemic control, is pending discharge. She is recommended continua tion of intravenous antibiotics for 6 weeks and she will schedule follow up as an outpatient. Dictated By: JOVANNA SIMMONS/LEI Conf#: [id number] DID#: [id number]
[2017-02-17] MEDS: GENTAMICIN 0.1% 15 GM OINT TOP SCH (12:34)
--- NOTE | 2017-02-17 13:32 | PN ---
Date/Time of Note Date/Time of Note DATE: 02/17/17 TIME: 13:32 Assessment/Plan VTE Prophylaxis VTE Prophylaxis Intervention: other Lines/Catheters IV Catheter Type (from Nrs): PICC Line Central line still needed: Yes Urinary Cath still in place: No Assessment/Plan Chief Complaint/Hosp Course -Right third toe left great toe ulcers with osteomyelitis of the right foot toe , status post excisional debridement of the right third toe and the left big toe on 02/[address] Raya, podiatry. is following in infection disease consultation. Continue antibiotics per ID. -Severe peripheral arterial disease. Dr. San in vascular surgery consultation, vascular interventions planned. -Urinary tract infection per UA, status post treatment. -Hypertension -Hyperlipidemia -Hyperglycemia in patient with diabetes mellitus type 2. hemoglobin A1c is 10.8. Continue Lantus and pre-meal NovoLog. Dr. Cornejo is following in endocrinology consultation. -Obesity Problems: Subjective 24 Hr Interval Summary Free Text/Dictation Patient has no complaints Exam/Review of Systems Vital Signs Vitals Vital Signs Date Time Temp Pulse Resp B/P Pulse Ox O2 Delivery O2 Flow Rate FiO2 02/17/17 08:00 98.8 88 20 110/72 94 02/15/17 23:30 Room Air Intake and Output 02/16/17 02/16/17 02/17/17 15:00 23:00 07:00 Intake Total 250 ml 600 ml 2080 ml Output Total 750 ml Balance 250 ml -150 ml 2080 ml Exam Constitutional: well developed Head: atraumatic, normocephalic Neck: supple Respiratory: clear to auscultation Cardiovascular: regular rate and rhythm Gastrointestinal: non-tender, soft Extremities: normal pulses Results Result Diagram: 02/14/17 0532 02/15/17 1655 Results 24 hrs Laboratory Tests Test 02/16/17 17:02 02/16/17 20:06 02/16/17 21:02 02/17/17 08:14 Bedside Glucose 166 122 91 117 Test 02/17/17 12:33 Bedside Glucose 140 Medications Medications Current Medications Ondansetron HCl (Zofran Inj) 4 mg Q6H PRN IV NAUSEA AND/OR VOMITING Last administered on 02/07/17t 11:37; Admin Dose 4 MG; Start 02/04/17 at 19:30 Acetaminophen (Tylenol Tab) 650 mg Q6H PRN PO PAIN LEVEL 1-3 OR FEVER; Start 02/04/17 at 19:30 Morphine Sulfate (morphine) 2 mg Q4H PRN IV SEVERE PAIN LEVEL 7-10 Last administered on 02/13/17 21:00; Admin Dose 2 MG; Start 02/04/17 at 19:30 Famotidine (Pepcid Iv) 20 mg Q12 IV Last administered on 02/17/17 09:09; Admin Dose 20 MG; Start 02/04/17 at 21:00 Enoxaparin Sodium (Lovenox) 30 mg DAILY SC Last administered on 02/17/17 09: 08; Admin Dose 30 MG; Start 02/05/17 at 09:00 Aspirin (Halfprin) 81 mg DAILY PO Last administered on 02/17/17 09:09; Admin Dose 81 MG; Start 02/05/17 at 09:00 Atorvastatin Calcium (Lipitor) 40 mg HS PO Last administered on 02/16/17 20: 54; Admin Dose 40 MG; Start 02/05/17 at 21:00 Clopidogrel Bisulfate (plaVIX) 75 mg DAILY PO Last administered on 02/17/17 09:09; Admin Dose 75 MG; Start 02/05/17 at 09:00 Tramadol HCl (Ultram) 50 mg Q6H PRN PO PAIN LEVEL 1-5 Last administered on 03:40; Admin Dose 50 MG; Start 02/04/17 at 22:30 Clonidine (Catapres) 0.1 mg Q6H PRN PO ELEVATED BLOOD PRESSURE Last administered on 02/15/17 21:12; Admin Dose 0.1 MG; Start 02/04/17 at 23:00 Miscellaneous Information 1 ea NOTE XX ; Start 02/04/17 at 23:00 Glucose (Glutose) 15 gm Q15M PRN PO DECREASED GLUCOSE; Start 02/04/17 at 23:00 Glucose (Glutose) 22.5 gm Q15M PRN PO DECREASED GLUCOSE; Start 02/04/17 at 23: 00 Dextrose (D50w Syringe) 25 ml Q15M PRN IV DECREASED GLUCOSE; Start 02/04/17 at 23:00 Dextrose (D50w Syringe) 50 ml Q15M PRN IV DECREASED GLUCOSE; Start 02/04/17 at 23:00 Glucagon (Glucagen) 1 mg Q15M PRN IM DECREASED GLUCOSE; Start 02/04/17 at 23: 00 Glucose (Glutose) 15 gm Q15M PRN BUCCAL DECREASED GLUCOSE; Start 02/04/17 at 23:00 Diagnostic Test (Pha) (Accu-Chek) 1 ea 02 XX Last administered on 02/15/17 02 :02; Admin Dose 1 EA; Start 02/06/17 at 02:00 Insulin Glargine (Lantus) 17 unit DAILY@20 SC Last administered on 02/16/17 20:07; Admin Dose 17 UNIT; Start 02/05/17 at 20:00 Fluconazole (Diflucan) 200 mg DAILY PO Last administered on 02/17/17 09:09; Admin Dose 200 MG; Start 02/06/17 at 09:00 Lidocaine (Lmx 4% Plus) 1 applic PRN PRN TOP W/ DRESSING CHANGES PRN PAIN; Start 02/06/17 at 08:00 Gentamicin Sulfate (Gentamicin 0.1% Oint) 1 applic DAILY TOP Last administered on 02/17/17 12:34; Admin Dose 1 APPLIC; Start 02/09/17 at 09:00 Sodium Hypochlorite (Dakin'S (Dilute 1/40%)) 1 applic DAILY TOP Last administered on 02/17/17 09:18; Admin Dose 1 APPLIC; Start 02/09/17 at 09:00 Cilostazol 50 mg 50 mg BID PO Last administered on 02/17/17 09:08; Admin Dose 50 MG; Start 02/10/17 at 21:00 Vancomycin HCl/ Sodium Chloride (Vancocin/NS) 250 ml @ 83.333 mls/ hr Q24H IVPB Last administered on 02/17/17 06:07; Admin Dose 83.333 MLS/HR; Start at 06:00 IV Flush 10 ml 10 ml PRN PRN IV IV PROTOCOL; Start 02/14/17 at 13:30 Sodium Chloride (1/2 NS) 1,000 ml @ 60 mls/hr [id number] IV Last administered on 02/17/17 02:51; Admin Dose 60 MLS/HR; Start 02/14/17 at 16:00 Levofloxacin (Levaquin) 500 mg DAILY@06 PO Last administered on 02/17/17 06: 07; Admin Dose 500 MG; Start 02/16/17 at 06:00 Ibuprofen (Motrin) 400 mg Q6H PRN PO TEMPERATURE OVER 101 Last administered on 02/16/17 16:07; Admin Dose 400 MG; Start 02/16/17 at 15:30 RADHA DAWN Feb 17, 2017 13:32
[2017-02-17 14:00] VITALS: BP 155/70; RESP 20
[2017-02-17] MEDS: IBUPROFEN 400 MG TAB PO PRN (17:28)
--- NOTE | 2017-02-17 18:22 | CONS ---
Date/Time of Note Date/Time of Note DATE: 02/17/17 TIME: 18:20 Consultation Date/Type/Reason Admit Date/Time Feb 04, 2017 at 17:34 Initial Consult Date SUBJECTIVE: Pt is awake,alert, resting in bed. Denies fever, chills. VS: 155/70 P:96 R:20 T:98.8 SO2:96% LABS: reviewed. None for today. MICROBIOLOGY: Wound culture negative ANTIMICROBIALS: 1. Vancomycin 2. Levaquin. 3. Diflucan PHYSICAL EXAMINATION: GENERAL: Well-developed elderly woman in no distress. HEENT: Head atraumatic, normocephalic. Sclerae anicteric. Buccal mucosa pink. NECK: Supple. CHEST: Rise symmetrical. Breath sounds clear. HEART: S1, S2. ABDOMEN: Soft. Bowel tones present. ASSESSMENT: 1. Bilateral diabetic foot ulcerations with exposed bone of the left toe, status post incision and drainage. 2. Diabetes. 3. Diabetes neuropathy. 4. Positive urinalysis on admission PLAN: The patient remains stable. Continue with current antbx x 6 weeks. Type of Consultation: ID Referring Provider: JOSE RANGEL Exam/Review of Systems Vital Signs Vitals Vital Signs Date Time Temp Pulse Resp B/P Pulse Ox O2 Delivery O2 Flow Rate FiO2 02/17/17 14:00 98.8 96 20 155/70 96 02/15/17 23:30 Room Air Intake and Output 02/16/17 02/16/17 02/17/17 15:00 23:00 07:00 Intake Total 250 ml 600 ml 2080 ml Output Total 750 ml Balance 250 ml -150 ml 2080 ml Results Result Diagram: 02/14/17 0532 02/15/17 1655 Results 24 hrs Laboratory Tests Test 02/16/17 20:06 02/16/17 21:02 02/17/17 08:14 02/17/17 12:33 Bedside Glucose 122 91 117 140 Test 02/17/17 17:24 Bedside Glucose 93 Medications Medications Current Medications Ondansetron HCl (Zofran Inj) 4 mg Q6H PRN IV NAUSEA AND/OR VOMITING Last administered on 02/07/17t 11:37; Admin Dose 4 MG; Start 02/04/17 at 19:30 Acetaminophen (Tylenol Tab) 650 mg Q6H PRN PO PAIN LEVEL 1-3 OR FEVER; Start 02/04/17 at 19:30 Morphine Sulfate (morphine) 2 mg Q4H PRN IV SEVERE PAIN LEVEL 7-10 Last administered on 02/13/17 21:00; Admin Dose 2 MG; Start 02/04/17 at 19:30 Famotidine (Pepcid Iv) 20 mg Q12 IV Last administered on 02/17/17 09:09; Admin Dose 20 MG; Start 02/04/17 at 21:00 Enoxaparin Sodium (Lovenox) 30 mg DAILY SC Last administered on 02/17/17 09: 08; Admin Dose 30 MG; Start 02/05/17 at 09:00 Aspirin (Halfprin) 81 mg DAILY PO Last administered on 02/17/17 09:09; Admin Dose 81 MG; Start 02/05/17 at 09:00 Atorvastatin Calcium (Lipitor) 40 mg HS PO Last administered on 02/16/17 20: 54; Admin Dose 40 MG; Start 02/05/17 at 21:00 Clopidogrel Bisulfate (plaVIX) 75 mg DAILY PO Last administered on 02/17/17 09:09; Admin Dose 75 MG; Start 02/05/17 at 09:00 Tramadol HCl (Ultram) 50 mg Q6H PRN PO PAIN LEVEL 1-5 Last administered on 03:40; Admin Dose 50 MG; Start 02/04/17 at 22:30 Clonidine (Catapres) 0.1 mg Q6H PRN PO ELEVATED BLOOD PRESSURE Last administered on 02/15/17 21:12; Admin Dose 0.1 MG; Start 02/04/17 at 23:00 Miscellaneous Information 1 ea NOTE XX ; Start 02/04/17 at 23:00 Glucose (Glutose) 15 gm Q15M PRN PO DECREASED GLUCOSE; Start 02/04/17 at 23:00 Glucose (Glutose) 22.5 gm Q15M PRN PO DECREASED GLUCOSE; Start 02/04/17 at 23: 00 Dextrose (D50w Syringe) 25 ml Q15M PRN IV DECREASED GLUCOSE; Start 02/04/17 at 23:00 Dextrose (D50w Syringe) 50 ml Q15M PRN IV DECREASED GLUCOSE; Start 02/04/17 at 23:00 Glucagon (Glucagen) 1 mg Q15M PRN IM DECREASED GLUCOSE; Start 02/04/17 at 23: 00 Glucose (Glutose) 15 gm Q15M PRN BUCCAL DECREASED GLUCOSE; Start 02/04/17 at 23:00 Diagnostic Test (Pha) (Accu-Chek) 1 ea 02 XX Last administered on 02/15/17 02 :02; Admin Dose 1 EA; Start 02/06/17 at 02:00 Insulin Glargine (Lantus) 17 unit DAILY@20 SC Last administered on 02/16/17 20:07; Admin Dose 17 UNIT; Start 02/05/17 at 20:00 Fluconazole (Diflucan) 200 mg DAILY PO Last administered on 02/17/17 09:09; Admin Dose 200 MG; Start 02/06/17 at 09:00 Lidocaine (Lmx 4% Plus) 1 applic PRN PRN TOP W/ DRESSING CHANGES PRN PAIN; Start 02/06/17 at 08:00 Gentamicin Sulfate (Gentamicin 0.1% Oint) 1 applic DAILY TOP Last administered on 02/17/17 12:34; Admin Dose 1 APPLIC; Start 02/09/17 at 09:00 Sodium Hypochlorite (Dakin'S (Dilute 1/40%)) 1 applic DAILY TOP Last administered on 02/17/17 09:18; Admin Dose 1 APPLIC; Start 02/09/17 at 09:00 Cilostazol 50 mg 50 mg BID PO Last administered on 02/17/17 09:08; Admin Dose 50 MG; Start 02/10/17 at 21:00 Vancomycin HCl/ Sodium Chloride (Vancocin/NS) 250 ml @ 83.333 mls/ hr Q24H IVPB Last administered on 02/17/17 06:07; Admin Dose 83.333 MLS/HR; Start at 06:00 IV Flush 10 ml 10 ml PRN PRN IV IV PROTOCOL; Start 02/14/17 at 13:30 Sodium Chloride (1/2 NS) 1,000 ml @ 60 mls/hr [id number] IV Last administered on 02/17/17 02:51; Admin Dose 60 MLS/HR; Start 02/14/17 at 16:00 Levofloxacin (Levaquin) 500 mg DAILY@06 PO Last administered on 02/17/17 06: 07; Admin Dose 500 MG; Start 02/16/17 at 06:00 Ibuprofen (Motrin) 400 mg Q6H PRN PO TEMPERATURE OVER 101 Last administered on 02/17/17t 17:28; Admin Dose 400 MG; Start 02/16/17 at 15:30 MISTY SOTOMAYOR Feb 17, 2017 18:22
[2017-02-17 20:00] VITALS: BP 127/58; RESP 20
[2017-02-17] MEDS: INSULIN GLARGINE [LANtus] 3 ML PEN SC SCH (20:38)
[2017-02-17] MEDS: ATORVASTATIN 40 MG TAB PO SCH (20:39)
[2017-02-18 02:00] VITALS: BP 102/58; RESP 20
[2017-02-18] MEDS ORDERED: ALTEPLASE (CATHFLO) 2 MG INJ CATHETER ONE (05:00)
[2017-02-18] MEDS ORDERED: ALTEPLASE (CATHFLO) 2 MG INJ CATHETER PRN (06:00)
[2017-02-18] MEDS: LEVOFLOXACIN 500 MG TAB PO SCH (06:14)
[2017-02-18] MEDS: VANCOMYCIN 1.5 GM in SOD CHLORIDE 0.9% 250 ML IVPB SCH (06:14)
[2017-02-18 06:46] LABS: CREATININE 1.21 mg/dl (0.44-1.00)
[2017-02-18 08:00] VITALS: BP 113/53; RESP 18
[2017-02-18] MEDS: INSULIN ASPART [NOVOLOG] 3 ML PEN SC SCH ×7 (08:00→20:37)
[2017-02-18] MEDS: ENOXAPARIN 30 MG/0.3 ML SYG SC SCH (09:07)
[2017-02-18] MEDS: metFORMIN 500 MG TAB PO SCH ×2 (09:08→17:38)
[2017-02-18] MEDS: FAMOTIDINE 20 MG INJ IV SCH ×2 (09:08→20:40)
[2017-02-18] MEDS: LINAGLIPTIN 5 MG TABLET PO SCH (09:08)
[2017-02-18] MEDS: CILOSTAZOL 100 MG TAB PO SCH ×2 (09:09→20:40)
[2017-02-18] MEDS: FLUCONAZOLE 200 MG TAB PO SCH (09:09)
[2017-02-18] MEDS: ASPIRIN (EC) 81 MG TAB PO SCH (09:09)
[2017-02-18] MEDS: CLOPIDOGREL 75 MG TAB PO SCH (09:09)
[2017-02-18] MEDS: GENTAMICIN 0.1% 15 GM OINT TOP SCH (09:09)
[2017-02-18] MEDS: SODIUM HYPOCHLORITE 1/40% 1L IRRIG TOP SCH (09:10)
--- NOTE | 2017-02-18 11:20 | CONS ---
Date/Time of Note Date/Time of Note DATE: 02/18/17 TIME: 11:18 Assessment/Plan Assessment/Plan Problems: (1) Type 2 diabetes mellitus with foot ulcer Status: Chronic Comment: Blood sugar control is adequate under the current regimen. 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 I will initiate her on formalized treatment for same (3) Osteomyelitis due to type 2 diabetes mellitus Status: Chronic Comment: For long-term antibiotic therapy. Please note she has had a reevaluation by podiatry with relief Consultation Date/Type/Reason Admit Date/Time Feb 04, 2017 at 17:34 Initial Consult Date 02/07/17 Type of Consultation: Endocrinology Reason for Consultation Diabetes mellitus type 2 complicated by peripheral vascular disease; diabetic foot ulcer; diabetic peripheral neuropathy Referring Provider: JOSE RANGEL 24 HR Interval Summary Free Text/Dictation Patient complains of cough Constitutional: no complaints (No fevers chills or sweats) Detailed Summary Respiratory: cough Cardiovascular: no complaints Gastrointestinal: no complaints Exam/Review of Systems Vital Signs Vitals Vital Signs Date Time Temp Pulse Resp B/P Pulse Ox O2 Delivery O2 Flow Rate FiO2 02/18/17 08:00 97.8 55 18 113/53 97 02/15/17 23:30 Room Air Intake and Output 02/17/17 02/17/17 02/18/17 15:00 23:00 07:00 Intake Total 250 ml 1200 ml 720 ml Output Total 700 ml Balance 250 ml 500 ml 720 ml Exam Constitutional: alert, oriented Neck: supple Respiratory: diminished breath sounds (Increased AP diameter), wheezing Cardiovascular: nl pulses, regular rate and rhythm Results Result Diagram: 02/14/17 0532 02/18/17 0447 Results 24 hrs Laboratory Tests Test 02/17/17 12:33 02/17/17 17:24 02/17/17 20:35 02/18/17 04:47 Bedside Glucose 140 93 157 Blood Urea Nitrogen 12 Creatinine 1.21 H Test 02/18/17 08:49 Bedside Glucose 112 Medications Medications Current Medications Ondansetron HCl (Zofran Inj) 4 mg Q6H PRN IV NAUSEA AND/OR VOMITING Last administered on 02/07/17 11:37; Admin Dose 4 MG; Start 02/04/17 at 19:30 Acetaminophen (Tylenol Tab) 650 mg Q6H PRN PO PAIN LEVEL 1-3 OR FEVER Last administered on 02/17/17 20:40; Admin Dose 650 MG; Start 02/04/17 at 19:30 Morphine Sulfate (morphine) 2 mg Q4H PRN IV SEVERE PAIN LEVEL 7-10 Last administered on 02/13/17 21:00; Admin Dose 2 MG; Start 02/04/17 at 19:30 Famotidine (Pepcid Iv) 20 mg Q12 IV Last administered on 02/18/17 09:08; Admin Dose 20 MG; Start 02/04/17 at 21:00 Enoxaparin Sodium (Lovenox) 30 mg DAILY SC Last administered on 02/18/17 09: 07; Admin Dose 30 MG; Start 02/05/17 at 09:00 Aspirin (Halfprin) 81 mg DAILY PO Last administered on 02/18/17 09:09; Admin Dose 81 MG; Start 02/05/17 at 09:00 Atorvastatin Calcium (Lipitor) 40 mg HS PO Last administered on 02/17/17 20: 39; Admin Dose 40 MG; Start 02/05/17 at 21:00 Clopidogrel Bisulfate (plaVIX) 75 mg DAILY PO Last administered on 02/18/17 09:09; Admin Dose 75 MG; Start 02/05/17 at 09:00 Tramadol HCl (Ultram) 50 mg Q6H PRN PO PAIN LEVEL 1-5 Last administered on 03:40; Admin Dose 50 MG; Start 02/04/17 at 22:30 Clonidine (Catapres) 0.1 mg Q6H PRN PO ELEVATED BLOOD PRESSURE Last administered on 02/15/17 21:12; Admin Dose 0.1 MG; Start 02/04/17 at 23:00 Miscellaneous Information 1 ea NOTE XX ; Start 02/04/17 at 23:00 Glucose (Glutose) 15 gm Q15M PRN PO DECREASED GLUCOSE; Start 02/04/17 at 23:00 Glucose (Glutose) 22.5 gm Q15M PRN PO DECREASED GLUCOSE; Start 02/04/17 at 23: 00 Dextrose (D50w Syringe) 25 ml Q15M PRN IV DECREASED GLUCOSE; Start 02/04/17 at 23:00 Dextrose (D50w Syringe) 50 ml Q15M PRN IV DECREASED GLUCOSE; Start 02/04/17 at 23:00 Glucagon (Glucagen) 1 mg Q15M PRN IM DECREASED GLUCOSE; Start 02/04/17 at 23: 00 Glucose (Glutose) 15 gm Q15M PRN BUCCAL DECREASED GLUCOSE; Start 02/04/17 at 23:00 Diagnostic Test (Pha) (Accu-Chek) 1 ea 02 XX Last administered on 02/15/17 02 :02; Admin Dose 1 EA; Start 02/06/17 at 02:00 Insulin Glargine (Lantus) 17 unit DAILY@20 SC Last administered on 02/17/17 20:38; Admin Dose 17 UNIT; Start 02/05/17 at 20:00 Fluconazole (Diflucan) 200 mg DAILY PO Last administered on 02/18/17 09:09; Admin Dose 200 MG; Start 02/06/17 at 09:00 Lidocaine (Lmx 4% Plus) 1 applic PRN PRN TOP W/ DRESSING CHANGES PRN PAIN; Start 02/06/17 at 08:00 Gentamicin Sulfate (Gentamicin 0.1% Oint) 1 applic DAILY TOP Last administered on 02/18/17 09:09; Admin Dose 1 APPLIC; Start 02/09/17 at 09:00 Sodium Hypochlorite (Dakin'S (Dilute 1/40%)) 1 applic DAILY TOP Last administered on 02/18/17 09:10; Admin Dose 1 APPLIC; Start 02/09/17 at 09:00 Cilostazol 50 mg 50 mg BID PO Last administered on 02/18/17 09:09; Admin Dose 50 MG; Start 02/10/17 at 21:00 Vancomycin HCl/ Sodium Chloride (Vancocin/NS) 250 ml @ 83.333 mls/ hr Q24H IVPB Last administered on 02/18/17 06:14; Admin Dose 83.333 MLS/HR; Start at 06:00 IV Flush 10 ml 10 ml PRN PRN IV IV PROTOCOL; Start 02/14/17 at 13:30 Sodium Chloride (1/2 NS) 1,000 ml @ 60 mls/hr [id number] IV Last administered on 02/17/17 20:45; Admin Dose 60 MLS/HR; Start 02/14/17 at 16:00 Levofloxacin (Levaquin) 500 mg DAILY@06 PO Last administered on 02/18/17 06: 14; Admin Dose 500 MG; Start 02/16/17 at 06:00 Ibuprofen (Motrin) 400 mg Q6H PRN PO TEMPERATURE OVER 101 Last administered on 02/17/17 17:28; Admin Dose 400 MG; Start 02/16/17 at 15:30 JOSH CUNNINGHAM MD Feb 18, 2017 11:20
[2017-02-18] MEDS: SALMETEROL/FLUTICASONE 250/50 INHA INH SCH ×2 (12:50→20:44)
[2017-02-18] MEDS: TIOTROPIUM 18 MCG CAPSULE INHA DEV INH SCH (12:50)
--- NOTE | 2017-02-18 12:54 | PN ---
Date/Time of Note Date/Time of Note DATE: 02/18/17 TIME: 12:54 Assessment/Plan VTE Prophylaxis VTE Prophylaxis Intervention: other Lines/Catheters IV Catheter Type (from Nrsg): PICC Line Central line still needed: Yes Urinary Cath still in place: No Assessment/Plan Chief Complaint/Hosp Course -Right third toe left great toe ulcers with osteomyelitis of the right foot toe , status post excisional debridement of the right third toe and the left big toe on 02/[address] Raya, podiatry. is following in infection disease consultation. Continue antibiotics per ID. -Severe peripheral arterial disease. Dr. San in vascular surgery consultation, vascular interventions planned. -Urinary tract infection per UA, status post treatment. -Hypertension -Hyperlipidemia -Hyperglycemia in patient with diabetes mellitus type 2. hemoglobin A1c is 10.8. Continue Lantus and pre-meal NovoLog. Dr. Cornejo is following in endocrinology consultation. -Obesity Problems: Subjective 24 Hr Interval Summary Free Text/Dictation Patient has no complaints Exam/Review of Systems Vital Signs Vitals Vital Signs Date Time Temp Pulse Resp B/P Pulse Ox O2 Delivery O2 Flow Rate FiO2 02/18/17 08:00 97.8 55 18 113/53 97 02/15/17 23:30 Room Air Intake and Output 02/17/17 02/17/17 02/18/17 15:00 23:00 07:00 Intake Total 250 ml 1200 ml 720 ml Output Total 700 ml Balance 250 ml 500 ml 720 ml Exam Constitutional: well developed Head: atraumatic, normocephalic Neck: supple Respiratory: clear to auscultation Cardiovascular: regular rate and rhythm Gastrointestinal: non-tender, soft Extremities: normal pulses Results Result Diagram: 02/14/17 0532 02/18/17 0447 Results 24 hrs Laboratory Tests Test 02/17/17 17:24 02/17/17 20:35 02/18/17 04:47 02/18/17 08:49 Bedside Glucose 93 157 112 Blood Urea Nitrogen 12 Creatinine 1.21 H Medications Medications Current Medications Ondansetron HCl (Zofran Inj) 4 mg Q6H PRN IV NAUSEA AND/OR VOMITING Last administered on 02/07/17t 11:37; Admin Dose 4 MG; Start 02/04/17 at 19:30 Acetaminophen (Tylenol Tab) 650 mg Q6H PRN PO PAIN LEVEL 1-3 OR FEVER Last administered on 02/17/17 20:40; Admin Dose 650 MG; Start 02/04/17 at 19:30 Morphine Sulfate (morphine) 2 mg Q4H PRN IV SEVERE PAIN LEVEL 7-10 Last administered on 02/13/17 21:00; Admin Dose 2 MG; Start 02/04/17 at 19:30 Famotidine (Pepcid Iv) 20 mg Q12 IV Last administered on 02/18/17 09:08; Admin Dose 20 MG; Start 02/04/17 at 21:00 Enoxaparin Sodium (Lovenox) 30 mg DAILY SC Last administered on 02/18/17 09: 07; Admin Dose 30 MG; Start 02/05/17 at 09:00 Aspirin (Halfprin) 81 mg DAILY PO Last administered on 02/18/17 09:09; Admin Dose 81 MG; Start 02/05/17 at 09:00 Atorvastatin Calcium (Lipitor) 40 mg HS PO Last administered on 02/17/17 20: 39; Admin Dose 40 MG; Start 02/05/17 at 21:00 Clopidogrel Bisulfate (plaVIX) 75 mg DAILY PO Last administered on 02/18/17 09:09; Admin Dose 75 MG; Start 02/05/17 at 09:00 Tramadol HCl (Ultram) 50 mg Q6H PRN PO PAIN LEVEL 1-5 Last administered on 03:40; Admin Dose 50 MG; Start 02/04/17 at 22:30 Clonidine (Catapres) 0.1 mg Q6H PRN PO ELEVATED BLOOD PRESSURE Last administered on 02/15/17 21:12; Admin Dose 0.1 MG; Start 02/04/17 at 23:00 Miscellaneous Information 1 ea NOTE XX ; Start 02/04/17 at 23:00 Glucose (Glutose) 15 gm Q15M PRN PO DECREASED GLUCOSE; Start 02/04/17 at 23:00 Glucose (Glutose) 22.5 gm Q15M PRN PO DECREASED GLUCOSE; Start 02/04/17 at 23: 00 Dextrose (D50w Syringe) 25 ml Q15M PRN IV DECREASED GLUCOSE; Start 02/04/17 at 23:00 Dextrose (D50w Syringe) 50 ml Q15M PRN IV DECREASED GLUCOSE; Start 02/04/17 at 23:00 Glucagon (Glucagen) 1 mg Q15M PRN IM DECREASED GLUCOSE; Start 02/04/17 at 23: 00 Glucose (Glutose) 15 gm Q15M PRN BUCCAL DECREASED GLUCOSE; Start 02/04/17 at 23:00 Diagnostic Test (Pha) (Accu-Chek) 1 ea 02 XX Last administered on 02/15/17 02 :02; Admin Dose 1 EA; Start 02/06/17 at 02:00 Insulin Glargine (Lantus) 17 unit DAILY@20 SC Last administered on 02/17/17 20:38; Admin Dose 17 UNIT; Start 02/05/17 at 20:00 Fluconazole (Diflucan) 200 mg DAILY PO Last administered on 02/18/17 09:09; Admin Dose 200 MG; Start 02/06/17 at 09:00 Lidocaine (Lmx 4% Plus) 1 applic PRN PRN TOP W/ DRESSING CHANGES PRN PAIN; Start 02/06/17 at 08:00 Gentamicin Sulfate (Gentamicin 0.1% Oint) 1 applic DAILY TOP Last administered on 02/18/17 09:09; Admin Dose 1 APPLIC; Start 02/09/17 at 09:00 Sodium Hypochlorite (Dakin'S (Dilute 1/40%)) 1 applic DAILY TOP Last administered on 02/18/17 09:10; Admin Dose 1 APPLIC; Start 02/09/17 at 09:00 Cilostazol 50 mg 50 mg BID PO Last administered on 02/18/17 09:09; Admin Dose 50 MG; Start 02/10/17 at 21:00 Vancomycin HCl/ Sodium Chloride (Vancocin/NS) 250 ml @ 83.333 mls/ hr Q24H IVPB Last administered on 02/18/17 06:14; Admin Dose 83.333 MLS/HR; Start at 06:00 IV Flush 10 ml 10 ml PRN PRN IV IV PROTOCOL; Start 02/14/17 at 13:30 Sodium Chloride (1/2 NS) 1,000 ml @ 60 mls/hr [id number] IV Last administered on 02/17/17 20:45; Admin Dose 60 MLS/HR; Start 02/14/17 at 16:00 Levofloxacin (Levaquin) 500 mg DAILY@06 PO Last administered on 02/18/17 06: 14; Admin Dose 500 MG; Start 02/16/17 at 06:00 Ibuprofen (Motrin) 400 mg Q6H PRN PO TEMPERATURE OVER 101 Last administered on 02/17/17 17:28; Admin Dose 400 MG; Start 02/16/17 at 15:30 Tiotropium [place] (Spiriva) 1 inh DAILY INH Last administered on 02/18/17 12 :50; Admin Dose 1 INH; Start 02/18/17 at 11:30 Salmeterol Xinafoate/ Fluticasone (Advair 250/50 Diskus) 1 inh BID INH Last administered on 02/18/17 12:50; Admin Dose 1 INH; Start 02/18/17 at 11:30 RADHA DAWN Feb 18, 2017 12:54
[2017-02-18 14:00] VITALS: BP 143/60; RESP 17
--- NOTE | 2017-02-18 18:22 | CONS ---
Date/Time of Note Date/Time of Note DATE: 02/18/17 TIME: 18:20 Assessment/Plan Assessment/Plan Chief Complaint/Hosp Course SUBJECTIVE: Looks comfortable, no fevers MICROBIOLOGY: Wound culture negative ANTIMICROBIALS: 1. Vancomycin 2. Levaquin. 3. Diflucan PHYSICAL EXAMINATION: GENERAL: Well-developed elderly woman in no distress. HEENT: Head atraumatic, normocephalic. Sclerae anicteric. Buccal mucosa pink. NECK: Supple. CHEST: Rise symmetrical. Breath sounds clear. HEART: S1, S2. ABDOMEN: Soft. Bowel tones present. ASSESSMENT: 1. Bilateral diabetic foot ulcerations with exposed bone of the left toe, status post incision and drainage. 2. Diabetes. 3. Diabetes neuropathy. 4. Positive urinalysis on admission PLAN: The patient remains stable. Continue abx for total of 6 weeks, f/u podiatry rec-s [facility] staff Problems: Consultation Date/Type/Reason Admit Date/Time Feb 04, 2017 at 17:34 Initial Consult Date 02/07/17 Type of Consultation: ID Referring Provider: JOSE RANGEL Exam/Review of Systems Vital Signs Vitals Vital Signs Date Time Temp Pulse Resp B/P Pulse Ox O2 Delivery O2 Flow Rate FiO2 02/18/17 14:00 98.6 58 17 143/60 98 02/15/17 23:30 Room Air Intake and Output 02/17/17 02/17/17 02/18/17 15:00 23:00 07:00 Intake Total 250 ml 1200 ml 720 ml Output Total 700 ml Balance 250 ml 500 ml 720 ml Results Result Diagram: 02/14/17 0532 02/18/17 0447 Results 24 hrs Laboratory Tests Test 02/17/17 20:35 02/18/17 04:47 02/18/17 08:49 02/18/17 12:34 Bedside Glucose 157 112 64 L Blood Urea Nitrogen 12 Creatinine 1.21 H Test 02/18/17 12:51 02/18/17 13:10 02/18/17 13:39 02/18/17 17:36 Bedside Glucose 77 96 100 169 Medications Medications Current Medications Ondansetron HCl (Zofran Inj) 4 mg Q6H PRN IV NAUSEA AND/OR VOMITING Last administered on 02/07/17t 11:37; Admin Dose 4 MG; Start 02/04/17 at 19:30 Acetaminophen (Tylenol Tab) 650 mg Q6H PRN PO PAIN LEVEL 1-3 OR FEVER Last administered on 02/17/17 20:40; Admin Dose 650 MG; Start 02/04/17 at 19:30 Morphine Sulfate (morphine) 2 mg Q4H PRN IV SEVERE PAIN LEVEL 7-10 Last administered on 02/13/17 21:00; Admin Dose 2 MG; Start 02/04/17 at 19:30 Famotidine (Pepcid Iv) 20 mg Q12 IV Last administered on 02/18/17 09:08; Admin Dose 20 MG; Start 02/04/17 at 21:00 Enoxaparin Sodium (Lovenox) 30 mg DAILY SC Last administered on 02/18/17 09: 07; Admin Dose 30 MG; Start 02/05/17 at 09:00 Aspirin (Halfprin) 81 mg DAILY PO Last administered on 02/18/17 09:09; Admin Dose 81 MG; Start 02/05/17 at 09:00 Atorvastatin Calcium (Lipitor) 40 mg HS PO Last administered on 02/17/17 20: 39; Admin Dose 40 MG; Start 02/05/17 at 21:00 Clopidogrel Bisulfate (plaVIX) 75 mg DAILY PO Last administered on 02/18/17 09:09; Admin Dose 75 MG; Start 02/05/17 at 09:00 Tramadol HCl (Ultram) 50 mg Q6H PRN PO PAIN LEVEL 1-5 Last administered on 03:40; Admin Dose 50 MG; Start 02/04/17 at 22:30 Clonidine (Catapres) 0.1 mg Q6H PRN PO ELEVATED BLOOD PRESSURE Last administered on 02/15/17 21:12; Admin Dose 0.1 MG; Start 02/04/17 at 23:00 Miscellaneous Information 1 ea NOTE XX ; Start 02/04/17 at 23:00 Glucose (Glutose) 15 gm Q15M PRN PO DECREASED GLUCOSE; Start 02/04/17 at 23:00 Glucose (Glutose) 22.5 gm Q15M PRN PO DECREASED GLUCOSE; Start 02/04/17 at 23: 00 Dextrose (D50w Syringe) 25 ml Q15M PRN IV DECREASED GLUCOSE; Start 02/04/17 at 23:00 Dextrose (D50w Syringe) 50 ml Q15M PRN IV DECREASED GLUCOSE; Start 02/04/17 at 23:00 Glucagon (Glucagen) 1 mg Q15M PRN IM DECREASED GLUCOSE; Start 02/04/17 at 23: 00 Glucose (Glutose) 15 gm Q15M PRN BUCCAL DECREASED GLUCOSE; Start 02/04/17 at 23:00 Diagnostic Test (Pha) (Accu-Chek) 1 ea 02 XX Last administered on 02/15/17 02 :02; Admin Dose 1 EA; Start 02/06/17 at 02:00 Insulin Glargine (Lantus) 17 unit DAILY@20 SC Last administered on 02/17/17 20:38; Admin Dose 17 UNIT; Start 02/05/17 at 20:00 Fluconazole (Diflucan) 200 mg DAILY PO Last administered on 02/18/17 09:09; Admin Dose 200 MG; Start 02/06/17 at 09:00 Lidocaine (Lmx 4% Plus) 1 applic PRN PRN TOP W/ DRESSING CHANGES PRN PAIN; Start 02/06/17 at 08:00 Gentamicin Sulfate (Gentamicin 0.1% Oint) 1 applic DAILY TOP Last administered on 02/18/17 09:09; Admin Dose 1 APPLIC; Start 02/09/17 at 09:00 Sodium Hypochlorite (Dakin'S (Dilute 1/40%)) 1 applic DAILY TOP Last administered on 02/18/17 09:10; Admin Dose 1 APPLIC; Start 02/09/17 at 09:00 Cilostazol 50 mg 50 mg BID PO Last administered on 02/18/17 09:09; Admin Dose 50 MG; Start 02/10/17 at 21:00 Vancomycin HCl/ Sodium Chloride (Vancocin/NS) 250 ml @ 83.333 mls/ hr Q24H IVPB Last administered on 02/18/17 06:14; Admin Dose 83.333 MLS/HR; Start at 06:00 IV Flush 10 ml 10 ml PRN PRN IV IV PROTOCOL; Start 02/14/17 at 13:30 Sodium Chloride (1/2 NS) 1,000 ml @ 60 mls/hr [id number] IV Last administered on 02/17/17 20:45; Admin Dose 60 MLS/HR; Start 02/14/17 at 16:00 Levofloxacin (Levaquin) 500 mg DAILY@06 PO Last administered on 02/18/17 06: 14; Admin Dose 500 MG; Start 02/16/17 at 06:00 Ibuprofen (Motrin) 400 mg Q6H PRN PO TEMPERATURE OVER 101 Last administered on 02/17/17 17:28; Admin Dose 400 MG; Start 02/16/17 at 15:30 Tiotropium [place] (Spiriva) 1 inh DAILY INH Last administered on 02/18/17 12 :50; Admin Dose 1 INH; Start 02/18/17 at 11:30 Salmeterol Xinafoate/ Fluticasone (Advair 250/50 Diskus) 1 inh BID INH Last administered on 02/18/17 12:50; Admin Dose 1 INH; Start 02/18/17 at 11:30 JOSELITO AGARWAL NP Feb 18, 2017 18:22
[2017-02-18 19:47] VITALS: BP 134/61; RESP 20
[2017-02-18] MEDS: INSULIN GLARGINE [LANtus] 3 ML PEN SC SCH (20:39)
[2017-02-18] MEDS: ATORVASTATIN 40 MG TAB PO SCH (20:40)
[2017-02-18] MEDS: SOD CHLORIDE 0.45% 1,000 ML IV SCH (20:40)
[2017-02-18] MEDS: ACCU-CHEK XX SCH (20:52)
[2017-02-19 02:13] VITALS: BP 123/58; RESP 20
--- NOTE | 2017-02-19 02:45 | CONS ---
Date/Time of Note Date/Time of Note DATE: 02/19/17 TIME: 02:45 Assessment/Plan Assessment/Plan Additional Assessment/Plan 1. acute kidney injury on CKD due to ATN from SIRS 2. SIRS 3. BilaterL LE diabetic foot ulcer s/p I & D 4. possibel CKD due to diabetic nephropathy 5. peripheral vasculr disease 6. Hypokalemia 7. Anemia of Chronic disease Plan : Continue current IV abx, Renally dose all abx, Montior Electroltyes and Cr KCL replacement, Endocrine Folliwng Cr iproved to 1.06 with IVF hydration will conitnue to follow up No need for renal US Consultation Date/Type/Reason Admit Date/Time Feb 04, 2017 at 17:34 Date of Consultation: Feb 19, 2017 Type of Consultation: NEPHROLOGY Reason for Consultation acute kidney injury Referring Provider: CHRISTIE CABEZAS MD Hx of Present Illness 76 F with PMhx of Poorly controlled DM with HBA1c 10.8 who admitted with bilateral LE diabetic ulceration and infection s/p I & D. pt presented with Normal BUN and Cr Treated wt IV abx Cr bumped to 1.6 and renal has been consulted for JANNIE vs JANNIE on CKD. Constitutional: no complaints Eyes: no complaints ENT: no complaints Respiratory: no complaints Cardiovascular: no complaints Gastrointestinal: no complaints Genitourinary: no complaints Musculoskeletal: neck pain, no complaints, other (bilateral LE pain , swelling , ulcer ) Skin: no complaints Neurologic: no complaints Endocrine: no complaints Past Medical History Medical History: diabetes, GERD, high cholesterol, hypertension, other ( Peripheral arterial disease) Past Surgical History Past Surgical Hx: other (JOAQUIN, c-sect, T&A, back surgery) Family History Significant Family History: no pertinent family hx Social History Alcohol Use: none Smoking Status: Never smoker Drug Use: none Exam/Review of Systems Vital Signs Vitals Vital Signs Date Time Temp Pulse Resp B/P Pulse Ox O2 Delivery O2 Flow Rate FiO2 02/18/17 19:47 99.0 103 20 134/61 98 02/15/17 23:30 Room Air Intake and Output 02/18/17 02/18/17 02/19/17 14:59 22:59 06:59 Intake Total 250 ml 1300 ml Balance 250 ml 1300 ml Exam GENERAL: Afebrile, VSS, NAD HEENT: Unremarkable NECK: Full ROM CHEST: Equal chest rise bilaterally, no distress HEART: RRR pulse ABDOMEN: Soft EXT: Warm, no edema, moves extremities => Bilateral feet DSG C/D/I SKIN: No rash, no diaphoresis Results Result Diagram: 02/18/17 0447 Results 24 hrs Laboratory Tests Test 02/18/17 04:47 02/18/17 08:49 02/18/17 12:34 02/18/17 12:51 Blood Urea Nitrogen 12 Creatinine 1.21 H Bedside Glucose 112 64 L 77 Test 02/18/17 13:10 02/18/17 13:39 02/18/17 17:36 02/18/17 20:36 Bedside Glucose 96 100 169 99 Medications Medications Current Medications Ondansetron HCl (Zofran Inj) 4 mg Q6H PRN IV NAUSEA AND/OR VOMITING Last administered on 02/07/17 11:37; Admin Dose 4 MG; Start 02/04/17 at 19:30 Acetaminophen (Tylenol Tab) 650 mg Q6H PRN PO PAIN LEVEL 1-3 OR FEVER Last administered on 02/17/17 20:40; Admin Dose 650 MG; Start 02/04/17 at 19:30 Morphine Sulfate (morphine) 2 mg Q4H PRN IV SEVERE PAIN LEVEL 7-10 Last administered on 02/13/17 21:00; Admin Dose 2 MG; Start 02/04/17 at 19:30 Famotidine (Pepcid Iv) 20 mg Q12 IV Last administered on 02/18/17 20:40; Admin Dose 20 MG; Start 02/04/17 at 21:00 Enoxaparin Sodium (Lovenox) 30 mg DAILY SC Last administered on 02/18/17 09: 07; Admin Dose 30 MG; Start 02/05/17 at 09:00 Aspirin (Halfprin) 81 mg DAILY PO Last administered on 02/18/17 09:09; Admin Dose 81 MG; Start 02/05/17 at 09:00 Atorvastatin Calcium (Lipitor) 40 mg HS PO Last administered on 02/18/17 20: 40; Admin Dose 40 MG; Start 02/05/17 at 21:00 Clopidogrel Bisulfate (plaVIX) 75 mg DAILY PO Last administered on 02/18/17 09:09; Admin Dose 75 MG; Start 02/05/17 at 09:00 Tramadol HCl (Ultram) 50 mg Q6H PRN PO PAIN LEVEL 1-5 Last administered on 03:40; Admin Dose 50 MG; Start 02/04/17 at 22:30 Clonidine (Catapres) 0.1 mg Q6H PRN PO ELEVATED BLOOD PRESSURE Last administered on 02/15/17 21:12; Admin Dose 0.1 MG; Start 02/04/17 at 23:00 Miscellaneous Information 1 ea NOTE XX ; Start 02/04/17 at 23:00 Glucose (Glutose) 15 gm Q15M PRN PO DECREASED GLUCOSE; Start 02/04/17 at 23:00 Glucose (Glutose) 22.5 gm Q15M PRN PO DECREASED GLUCOSE; Start 02/04/17 at 23: 00 Dextrose (D50w Syringe) 25 ml Q15M PRN IV DECREASED GLUCOSE; Start 02/04/17 at 23:00 Dextrose (D50w Syringe) 50 ml Q15M PRN IV DECREASED GLUCOSE; Start 02/04/17 at 23:00 Glucagon (Glucagen) 1 mg Q15M PRN IM DECREASED GLUCOSE; Start 02/04/17 at 23: 00 Glucose (Glutose) 15 gm Q15M PRN BUCCAL DECREASED GLUCOSE; Start 02/04/17 at 23:00 Diagnostic Test (Pha) (Accu-Chek) 1 ea 02 XX Last administered on 02/15/17 02 :02; Admin Dose 1 EA; Start 02/06/17 at 02:00 Insulin Glargine (Lantus) 17 unit DAILY@20 SC Last administered on 02/18/17 20:39; Admin Dose 17 UNIT; Start 02/05/17 at 20:00 Fluconazole (Diflucan) 200 mg DAILY PO Last administered on 02/18/17 09:09; Admin Dose 200 MG; Start 02/06/17 at 09:00 Lidocaine (Lmx 4% Plus) 1 applic PRN PRN TOP W/ DRESSING CHANGES PRN PAIN; Start 02/06/17 at 08:00 Gentamicin Sulfate (Gentamicin 0.1% Oint) 1 applic DAILY TOP Last administered on 02/18/17 09:09; Admin Dose 1 APPLIC; Start 02/09/17 at 09:00 Sodium Hypochlorite (Dakin'S (Dilute 1/40%)) 1 applic DAILY TOP Last administered on 02/18/17 09:10; Admin Dose 1 APPLIC; Start 02/09/17 at 09:00 Cilostazol 50 mg 50 mg BID PO Last administered on 02/18/17 20:40; Admin Dose 50 MG; Start 02/10/17 at 21:00 Vancomycin HCl/ Sodium Chloride (Vancocin/NS) 250 ml @ 83.333 mls/ hr Q24H IVPB Last administered on 02/18/17 06:14; Admin Dose 83.333 MLS/HR; Start at 06:00 IV Flush 10 ml 10 ml PRN PRN IV IV PROTOCOL; Start 02/14/17 at 13:30 Sodium Chloride (1/2 NS) 1,000 ml @ 60 mls/hr [id number] IV Last administered on 02/18/17 20:40; Admin Dose 60 MLS/HR; Start 02/14/17 at 16:00 Levofloxacin (Levaquin) 500 mg DAILY@06 PO Last administered on 02/18/17 06: 14; Admin Dose 500 MG; Start 02/16/17 at 06:00 Ibuprofen (Motrin) 400 mg Q6H PRN PO TEMPERATURE OVER 101 Last administered on 02/17/17 17:28; Admin Dose 400 MG; Start 02/16/17 at 15:30 Tiotropium [place] (Spiriva) 1 inh DAILY INH Last administered on 02/18/17 12 :50; Admin Dose 1 INH; Start 02/18/17 at 11:30 Salmeterol Xinafoate/ Fluticasone (Advair 250/50 Diskus) 1 inh BID INH Last administered on 02/18/17 20:44; Admin Dose 1 INH; Start 02/18/17 at 11:30 MARIAN BURNS MD Feb 19, 2017 02:45
[2017-02-19] MEDS: VANCOMYCIN 1.5 GM in SOD CHLORIDE 0.9% 250 ML IVPB SCH (05:19)
[2017-02-19] MEDS: LEVOFLOXACIN 500 MG TAB PO SCH (05:19)
[2017-02-19 05:39] LABS: BASOPHILS % 0.3 % (0.0-2.0); EOSINOPHILS % 0.5 % (0.0-7.0); HEMATOCRIT 25.1 % (37.0-47.0); HEMOGLOBIN 8.5 g/dl (12.0-16.0); LYMPHOCYTES % 25.9 % (15.0-51.0); MEAN CORPUSCULAR HEMOGLOBIN 29.5 pg (29.0-33.0); MEAN CORPUSCULAR HGB CONC 33.9 g/dl (32.0-37.0); MEAN CORPUSCULAR VOLUME 87.2 fl (82.0-101.0); MEAN PLATELET VOLUME 9.4 fl (7.4-10.4); MONOCYTE # 0.4 10^3/ul (0.3-0.9); MONOCYTES % 9.5 % (0.0-11.0); NEUTROPHIL # 2.4 10^3/ul (1.6-7.5); NEUTROPHILS % 63.3 % (39.0-77.0); PLATELET COUNT 229 10^3/UL (140-415); RED BLOOD COUNT 2.88 10^6/ul (4.20-5.40); RED CELL DISTRIBUTION WIDTH 11.9 % (11.5-14.5); WHITE BLOOD COUNT 3.8 10^3/ul (4.8-10.8)
[2017-02-19 06:43] LABS: CREATININE 1.09 mg/dl (0.44-1.00); POTASSIUM 3.4 mmol/L (3.5-5.1)
[2017-02-19 07:35] VITALS: BP 121/60; RESP 18
[2017-02-19] MEDS: INSULIN ASPART [NOVOLOG] 3 ML PEN SC SCH ×7 (07:51→21:00)
[2017-02-19] MEDS: LINAGLIPTIN 5 MG TABLET PO SCH (07:54)
[2017-02-19] MEDS: metFORMIN 500 MG TAB PO SCH ×2 (07:54→17:18)
[2017-02-19] MEDS: ENOXAPARIN 30 MG/0.3 ML SYG SC SCH (08:43)
[2017-02-19] MEDS: SALMETEROL/FLUTICASONE 250/50 INHA INH SCH ×2 (08:44→21:05)
[2017-02-19] MEDS: FAMOTIDINE 20 MG INJ IV SCH ×2 (08:44→21:05)
[2017-02-19] MEDS: CILOSTAZOL 100 MG TAB PO SCH ×2 (08:44→21:07)
[2017-02-19] MEDS: ASPIRIN (EC) 81 MG TAB PO SCH (08:44)
[2017-02-19] MEDS: FLUCONAZOLE 200 MG TAB PO SCH (08:44)
[2017-02-19] MEDS: CLOPIDOGREL 75 MG TAB PO SCH (08:44)
[2017-02-19] MEDS: TIOTROPIUM 18 MCG CAPSULE INHA DEV INH SCH (08:45)
[2017-02-19] MEDS: SODIUM HYPOCHLORITE 1/40% 1L IRRIG TOP SCH ×2 (08:52→21:40)
[2017-02-19] MEDS: GENTAMICIN 0.1% 15 GM OINT TOP SCH ×2 (08:52→21:36)
[2017-02-19] MEDS ORDERED: POTASSIUM CHLORIDE (SR) 20 MEQ TAB PO STA ×2 (09:08→12:22)
--- NOTE | 2017-02-19 09:16 | CONS ---
Date/Time of Note Date/Time of Note DATE: 02/19/17 TIME: 09:11 Assessment/Plan Assessment/Plan Problems: (1) Diabetes mellitus type 2 with complications Status: Chronic Comment: At this time her blood sugar control is doing well. I would continue the present regimen. 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 coli UTI Status: Acute Comment: She has been on antibiotics for this appropriately and doing well, expect full resolution (3) Wheezing Status: Acute Comment: I suspect she has some underlying lung disease. She is responded quite nicely to treatment using Spiriva and Advair. I would continue this. (4) Non-pressure chronic ulcer of other part of left foot with fat layer exposed Status: Chronic Comment: She has been treated by podiatry. Discharge planning (5) Osteomyelitis due to type 2 diabetes mellitus Status: Chronic Comment: She will need long-term antibiotics so this is chronic osteomyelitis I have a suspicion ultimately this toe #3 is going to have to be removed; discharge planning. Addendum please note that the vascular surgery consultations did not indicate any plans for vascular intervention (6) PAD (peripheral artery disease) Status: Chronic Comment: As above. Vascular surgery did not indicate any plans for vascular intervention Consultation Date/Type/Reason Admit Date/Time Feb 04, 2017 at 17:34 Initial Consult Date 02/07/17 Type of Consultation: Endocrinology Reason for Consultation Diabetes mellitus type 2 with diabetic foot ulcers bilaterally Referring Provider: CHRISTIE CABEZAS MD 24 HR Interval Summary Free Text/Dictation Patient reports she is doing well. No hypoglycemia, negative endocrine review of systems Constitutional: no complaints (No fevers chills or sweats) Detailed Summary Respiratory: no complaints Cardiovascular: no complaints Gastrointestinal: no complaints Exam/Review of Systems Vital Signs Vitals Vital Signs Date Time Temp Pulse Resp B/P Pulse Ox O2 Delivery O2 Flow Rate FiO2 02/19/17 07:35 99.0 59 18 121/60 98 02/15/17 23:30 Room Air Intake and Output 02/18/17 02/18/17 02/19/17 15:00 23:00 07:00 Intake Total 250 ml 1300 ml 910 ml Balance 250 ml 1300 ml 910 ml Exam Constitutional: alert, oriented Respiratory: clear to auscultation, normal air movement Cardiovascular: nl pulses, regular rate and rhythm Gastrointestinal: nl liver, spleen, non-tender, soft Results Result Diagram: 02/19/175 02/19/17 0445 Results 24 hrs Laboratory Tests Test 02/18/17 12:34 02/18/17 12:51 02/18/17 13:10 02/18/17 13:39 Bedside Glucose 64 L 77 96 100 Test 02/18/17 17:36 02/18/17 20:36 02/19/17 04:45 02/19/17 07:49 Bedside Glucose 169 99 118 White Blood Count 3.8 #L Red Blood Count 2.88 L Hemoglobin 8.5 L Hematocrit 25.1 L Mean Corpuscular Volume 87.2 Mean Corpuscular Hemoglobin 29.5 Mean Corpuscular Hemoglobin Concent 33.9 Red Cell Distribution Width 11.9 Platelet Count 229 Mean Platelet Volume 9.4 Neutrophils % 63.3 Lymphocytes % 25.9 Monocytes % 9.5 Eosinophils % 0.5 Basophils % 0.3 Nucleated Red Blood Cells % 0.0 Neutrophils # 2.4 Lymphocytes # 1.0 Monocytes # 0.4 Eosinophils # 0.0 Basophils # 0.0 Nucleated Red Blood Cells # 0.0 Sodium Level 138 Potassium Level 3.4 L Chloride Level 105 Carbon Dioxide Level 23 Anion Gap 13 Blood Urea Nitrogen 9 Creatinine 1.09 H Glucose Level 159 Calcium Level 8.0 L Medications Medications Current Medications Ondansetron HCl (Zofran Inj) 4 mg Q6H PRN IV NAUSEA AND/OR VOMITING Last administered on 02/07/17 11:37; Admin Dose 4 MG; Start 02/04/17 at 19:30 Acetaminophen (Tylenol Tab) 650 mg Q6H PRN PO PAIN LEVEL 1-3 OR FEVER Last administered on 02/17/17 20:40; Admin Dose 650 MG; Start 02/04/17 at 19:30 Morphine Sulfate (morphine) 2 mg Q4H PRN IV SEVERE PAIN LEVEL 7-10 Last administered on 02/13/17 21:00; Admin Dose 2 MG; Start 02/04/17 at 19:30 Famotidine (Pepcid Iv) 20 mg Q12 IV Last administered on 02/19/17 08:44; Admin Dose 20 MG; Start 02/04/17 at 21:00 Enoxaparin Sodium (Lovenox) 30 mg DAILY SC Last administered on 02/19/17 08: 43; Admin Dose 30 MG; Start 02/05/17 at 09:00 Aspirin (Halfprin) 81 mg DAILY PO Last administered on 02/19/17 08:44; Admin Dose 81 MG; Start 02/05/17 at 09:00 Atorvastatin Calcium (Lipitor) 40 mg HS PO Last administered on 02/18/17 20: 40; Admin Dose 40 MG; Start 02/05/17 at 21:00 Clopidogrel Bisulfate (plaVIX) 75 mg DAILY PO Last administered on 02/19/17 08:44; Admin Dose 75 MG; Start 02/05/17 at 09:00 Tramadol HCl (Ultram) 50 mg Q6H PRN PO PAIN LEVEL 1-5 Last administered on 03:40; Admin Dose 50 MG; Start 02/04/17 at 22:30 Clonidine (Catapres) 0.1 mg Q6H PRN PO ELEVATED BLOOD PRESSURE Last administered on 02/15/17 21:12; Admin Dose 0.1 MG; Start 02/04/17 at 23:00 Miscellaneous Information 1 ea NOTE XX ; Start 02/04/17 at 23:00 Glucose (Glutose) 15 gm Q15M PRN PO DECREASED GLUCOSE; Start 02/04/17 at 23:00 Glucose (Glutose) 22.5 gm Q15M PRN PO DECREASED GLUCOSE; Start 02/04/17 at 23: 00 Dextrose (D50w Syringe) 25 ml Q15M PRN IV DECREASED GLUCOSE; Start 02/04/17 at 23:00 Dextrose (D50w Syringe) 50 ml Q15M PRN IV DECREASED GLUCOSE; Start 02/04/17 at 23:00 Glucagon (Glucagen) 1 mg Q15M PRN IM DECREASED GLUCOSE; Start 02/04/17 at 23: 00 Glucose (Glutose) 15 gm Q15M PRN BUCCAL DECREASED GLUCOSE; Start 02/04/17 at 23:00 Diagnostic Test (Pha) (Accu-Chek) 1 ea 02 XX Last administered on 02/15/17 02 :02; Admin Dose 1 EA; Start 02/06/17 at 02:00 Insulin Glargine (Lantus) 17 unit DAILY@20 SC Last administered on 02/18/17 20:39; Admin Dose 17 UNIT; Start 02/05/17 at 20:00 Fluconazole (Diflucan) 200 mg DAILY PO Last administered on 02/19/17 08:44; Admin Dose 200 MG; Start 02/06/17 at 09:00 Lidocaine (Lmx 4% Plus) 1 applic PRN PRN TOP W/ DRESSING CHANGES PRN PAIN; Start 02/06/17 at 08:00 Gentamicin Sulfate (Gentamicin 0.1% Oint) 1 applic DAILY TOP Last administered on 02/18/17 09:09; Admin Dose 1 APPLIC; Start 02/09/17 at 09:00 Sodium Hypochlorite (Dakin'S (Dilute 1/40%)) 1 applic DAILY TOP Last administered on 02/18/17 09:10; Admin Dose 1 APPLIC; Start 02/09/17 at 09:00 Cilostazol 50 mg 50 mg BID PO Last administered on 02/19/17 08:44; Admin Dose 50 MG; Start 02/10/17 at 21:00 Vancomycin HCl/ Sodium Chloride (Vancocin/NS) 250 ml @ 83.333 mls/ hr Q24H IVPB Last administered on 02/19/17 05:19; Admin Dose 83.333 MLS/HR; Start at 06:00 IV Flush 10 ml 10 ml PRN PRN IV IV PROTOCOL; Start 02/14/17 at 13:30 Sodium Chloride (1/2 NS) 1,000 ml @ 60 mls/hr [id number] IV Last administered on 02/18/17 20:40; Admin Dose 60 MLS/HR; Start 02/14/17 at 16:00 Levofloxacin (Levaquin) 500 mg DAILY@06 PO Last administered on 02/19/17 05: 19; Admin Dose 500 MG; Start 02/16/17 at 06:00 Ibuprofen (Motrin) 400 mg Q6H PRN PO TEMPERATURE OVER 101 Last administered on 02/17/17 17:28; Admin Dose 400 MG; Start 02/16/17 at 15:30 Tiotropium [place] (Spiriva) 1 inh DAILY INH Last administered on 02/19/17 08 :45; Admin Dose 1 INH; Start 02/18/17 at 11:30 Salmeterol Xinafoate/ Fluticasone (Advair 250/50 Diskus) 1 inh BID INH Last administered on 02/19/17t 08:44; Admin Dose 1 INH; Start 02/18/17 at 11:30 JOSH CUNNINGHAM MD Feb 19, 2017 09:16
--- NOTE | 2017-02-19 12:23 | PN ---
Date/Time of Note Date/Time of Note DATE: 02/19/17 TIME: 12:22 Assessment/Plan VTE Prophylaxis VTE Prophylaxis Intervention: other Lines/Catheters IV C[facility]ter Type (from [facility]): PICC Line Central line still needed: Yes Urinary Cath still in place: No Assessment/Plan Chief Complaint/Hosp Course -Right third toe left great toe ulcers with osteomyelitis of the right foot toe , status post excisional debridement of the right third toe and the left big toe on 02/[address] Raya, podiatry. is following in infection disease consultation. Continue antibiotics per ID. -Severe peripheral arterial disease. Dr. San in vascular surgery consultation, vascular interventions planned. -Urinary tract infection per UA, status post treatment. -Hypertension -Hyperlipidemia -Hyperglycemia in patient with diabetes mellitus type 2. hemoglobin A1c is 10.8. Continue Lantus and pre-meal NovoLog. Dr. Cornejo is following in endocrinology consultation. -Obesity Problems: Subjective 24 Hr Interval Summary Free Text/Dictation Patient has no complaints Exam/Review of Systems Vital Signs Vitals Vital Signs Date Time Temp Pulse Resp B/P Pulse Ox O2 Delivery O2 Flow Rate FiO2 02/19/17 07:35 99.0 59 18 121/60 98 02/15/17 23:30 Room Air Intake and Output 02/18/17 02/18/17 02/19/17 15:00 23:00 07:00 Intake Total 250 ml 1300 ml 910 ml Balance 250 ml 1300 ml 910 ml Exam Constitutional: well developed Head: atraumatic, normocephalic Neck: supple Respiratory: clear to auscultation Cardiovascular: regular rate and rhythm Gastrointestinal: non-tender, soft Extremities: normal pulses Results Result Diagram: 02/19/17 0445 02/19/17 0445 Results 24 hrs Laboratory Tests Test 02/18/17 12:34 02/18/17 12:51 02/18/17 13:10 02/18/17 13:39 Bedside Glucose 64 L 77 96 100 Test 02/18/17 17:36 02/18/17 20:36 02/19/17 04:45 02/19/17 07:49 Bedside Glucose 169 99 118 White Blood Count 3.8 #L Red Blood Count 2.88 L Hemoglobin 8.5 L Hematocrit 25.1 L Mean Corpuscular Volume 87.2 Mean Corpuscular Hemoglobin 29.5 Mean Corpuscular Hemoglobin Concent 33.9 Red Cell Distribution Width 11.9 Platelet Count 229 Mean Platelet Volume 9.4 Neutrophils % 63.3 Lymphocytes % 25.9 Monocytes % 9.5 Eosinophils % 0.5 Basophils % 0.3 Nucleated Red Blood Cells % 0.0 Neutrophils # 2.4 Lymphocytes # 1.0 Monocytes # 0.4 Eosinophils # 0.0 Basophils # 0.0 Nucleated Red Blood Cells # 0.0 Sodium Level 138 Potassium Level 3.4 L Chloride Level 105 Carbon Dioxide Level 23 Anion Gap 13 Blood Urea Nitrogen 9 Creatinine 1.09 H Glucose Level 159 Calcium Level 8.0 L Medications Medications Current Medications Ondansetron HCl (Zofran Inj) 4 mg Q6H PRN IV NAUSEA AND/OR VOMITING Last administered on 02/07/17 11:37; Admin Dose 4 MG; Start 02/04/17 at 19:30 Acetaminophen (Tylenol Tab) 650 mg Q6H PRN PO PAIN LEVEL 1-3 OR FEVER Last administered on 02/17/17 20:40; Admin Dose 650 MG; Start 02/04/17 at 19:30 Morphine Sulfate (morphine) 2 mg Q4H PRN IV SEVERE PAIN LEVEL 7-10 Last administered on 02/13/17 21:00; Admin Dose 2 MG; Start 02/04/17 at 19:30 Famotidine (Pepcid Iv) 20 mg Q12 IV Last administered on 02/19/17 08:44; Admin Dose 20 MG; Start 02/04/17 at 21:00 Enoxaparin Sodium (Lovenox) 30 mg DAILY SC Last administered on 02/19/17 08: 43; Admin Dose 30 MG; Start 02/05/17 at 09:00 Aspirin (Halfprin) 81 mg DAILY PO Last administered on 02/19/17 08:44; Admin Dose 81 MG; Start 02/05/17 at 09:00 Atorvastatin Calcium (Lipitor) 40 mg HS PO Last administered on 02/18/17 20: 40; Admin Dose 40 MG; Start 02/05/17 at 21:00 Clopidogrel Bisulfate (plaVIX) 75 mg DAILY PO Last administered on 02/19/17 08:44; Admin Dose 75 MG; Start 02/05/17 at 09:00 Tramadol HCl (Ultram) 50 mg Q6H PRN PO PAIN LEVEL 1-5 Last administered on 03:40; Admin Dose 50 MG; Start 02/04/17 at 22:30 Clonidine (Catapres) 0.1 mg Q6H PRN PO ELEVATED BLOOD PRESSURE Last administered on 02/15/17 21:12; Admin Dose 0.1 MG; Start 02/04/17 at 23:00 Miscellaneous Information 1 ea NOTE XX ; Start 02/04/17 at 23:00 Glucose (Glutose) 15 gm Q15M PRN PO DECREASED GLUCOSE; Start 02/04/17 at 23:00 Glucose (Glutose) 22.5 gm Q15M PRN PO DECREASED GLUCOSE; Start 02/04/17 at 23: 00 Dextrose (D50w Syringe) 25 ml Q15M PRN IV DECREASED GLUCOSE; Start 02/04/17 at 23:00 Dextrose (D50w Syringe) 50 ml Q15M PRN IV DECREASED GLUCOSE; Start 02/04/17 at 23:00 Glucagon (Glucagen) 1 mg Q15M PRN IM DECREASED GLUCOSE; Start 02/04/17 at 23: 00 Glucose (Glutose) 15 gm Q15M PRN BUCCAL DECREASED GLUCOSE; Start 02/04/17 at 23:00 Diagnostic Test (Pha) (Accu-Chek) 1 ea 02 XX Last administered on 02/15/17 02 :02; Admin Dose 1 EA; Start 02/06/17 at 02:00 Insulin Glargine (Lantus) 17 unit DAILY@20 SC Last administered on 02/18/17 20:39; Admin Dose 17 UNIT; Start 02/05/17 at 20:00 Fluconazole (Diflucan) 200 mg DAILY PO Last administered on 02/19/17 08:44; Admin Dose 200 MG; Start 02/06/17 at 09:00 Lidocaine (Lmx 4% Plus) 1 applic PRN PRN TOP W/ DRESSING CHANGES PRN PAIN; Start 02/06/17 at 08:00 Gentamicin Sulfate (Gentamicin 0.1% Oint) 1 applic DAILY TOP Last administered on 02/18/17 09:09; Admin Dose 1 APPLIC; Start 02/09/17 at 09:00 Sodium Hypochlorite (Dakin'S (Dilute 1/40%)) 1 applic DAILY TOP Last administered on 02/18/17 09:10; Admin Dose 1 APPLIC; Start 02/09/17 at 09:00 Cilostazol 50 mg 50 mg BID PO Last administered on 02/19/17 08:44; Admin Dose 50 MG; Start 02/10/17 at 21:00 Vancomycin HCl/ Sodium Chloride (Vancocin/NS) 250 ml @ 83.333 mls/ hr Q24H IVPB Last administered on 02/19/17 05:19; Admin Dose 83.333 MLS/HR; Start at 06:00 IV Flush 10 ml 10 ml PRN PRN IV IV PROTOCOL; Start 02/14/17 at 13:30 Sodium Chloride (1/2 NS) 1,000 ml @ 60 mls/hr [id number] IV Last administered on 02/18/17 20:40; Admin Dose 60 MLS/HR; Start 02/14/17 at 16:00 Levofloxacin (Levaquin) 500 mg DAILY@06 PO Last administered on 02/19/17 05: 19; Admin Dose 500 MG; Start 02/16/17 at 06:00 Ibuprofen (Motrin) 400 mg Q6H PRN PO TEMPERATURE OVER 101 Last administered on 02/17/17 17:28; Admin Dose 400 MG; Start 02/16/17 at 15:30 Tiotropium [place] (Spiriva) 1 inh DAILY INH Last administered on 02/19/17 08 :45; Admin Dose 1 INH; Start 02/18/17 at 11:30 Salmeterol Xinafoate/ Fluticasone (Advair 250/50 Diskus) 1 inh BID INH Last administered on 02/19/17 08:44; Admin Dose 1 INH; Start 02/18/17 at 11:30 RADHA DAWN Feb 19, 2017 12:23
[2017-02-19] MEDS: SOD CHLORIDE 0.45% 1,000 ML IV SCH ×2 (12:40→17:43)
[2017-02-19 14:11] VITALS: BP 143/63; RESP 20
[2017-02-19] MEDS: ONDANSETRON 4 MG INJ IV PRN (17:23)
--- NOTE | 2017-02-19 18:23 | CONS ---
Date/Time of Note Date/Time of Note DATE: 02/19/17 TIME: 18:22 Assessment/Plan Assessment/Plan Chief Complaint/Hosp Course SUBJECTIVE: Looks comfortable, no fevers MICROBIOLOGY: Wound culture negative ANTIMICROBIALS: 1. Vancomycin 2. Levaquin. 3. Diflucan PHYSICAL EXAMINATION: GENERAL: Well-developed elderly woman in no distress. HEENT: Head atraumatic, normocephalic. Sclerae anicteric. Buccal mucosa pink. NECK: Supple. CHEST: Rise symmetrical. Breath sounds clear. HEART: S1, S2. ABDOMEN: Soft. Bowel tones present. ASSESSMENT: 1. Bilateral diabetic foot ulcerations with exposed bone of the left toe, status post incision and drainage. 2. Diabetes. 3. Diabetes neuropathy. 4. Positive urinalysis on admission PLAN: The patient remains stable. Continue abx for 4 more weeks, f/u podiatry rec-s [facility] staff Problems: Consultation Date/Type/Reason Admit Date/Time Feb 04, 2017 at 17:34 Initial Consult Date 02/07/17 Type of Consultation: ID Referring Provider: CHRISTIE CABEZAS MD Exam/Review of Systems Vital Signs Vitals Vital Signs Date Time Temp Pulse Resp B/P Pulse Ox O2 Delivery O2 Flow Rate FiO2 02/19/17 14:11 98.7 59 20 143/63 96 02/15/17 23:30 Room Air Intake and Output 02/18/17 02/18/17 02/19/17 15:00 23:00 07:00 Intake Total 250 ml 1300 ml 910 ml Balance 250 ml 1300 ml 910 ml Results Result Diagram: 02/19/17 0445 02/19/17 0445 Results 24 hrs Laboratory Tests Test 02/18/17 20:36 02/19/17 04:45 02/19/17 07:49 02/19/17 12:21 Bedside Glucose 99 118 193 White Blood Count 3.8 #L Red Blood Count 2.88 L Hemoglobin 8.5 L Hematocrit 25.1 L Mean Corpuscular Volume 87.2 Mean Corpuscular Hemoglobin 29.5 Mean Corpuscular Hemoglobin Concent 33.9 Red Cell Distribution Width 11.9 Platelet Count 229 Mean Platelet Volume 9.4 Neutrophils % 63.3 Lymphocytes % 25.9 Monocytes % 9.5 Eosinophils % 0.5 Basophils % 0.3 Nucleated Red Blood Cells % 0.0 Neutrophils # 2.4 Lymphocytes # 1.0 Monocytes # 0.4 Eosinophils # 0.0 Basophils # 0.0 Nucleated Red Blood Cells # 0.0 Sodium Level 138 Potassium Level 3.4 L Chloride Level 105 Carbon Dioxide Level 23 Anion Gap 13 Blood Urea Nitrogen 9 Creatinine 1.09 H Glucose Level 159 Calcium Level 8.0 L Test 02/19/17 17:16 Bedside Glucose 143 Medications Medications Current Medications Ondansetron HCl (Zofran Inj) 4 mg Q6H PRN IV NAUSEA AND/OR VOMITING Last administered on 02/19/17 17:23; Admin Dose 4 MG; Start 02/04/17 at 19:30 Acetaminophen (Tylenol Tab) 650 mg Q6H PRN PO PAIN LEVEL 1-3 OR FEVER Last administered on 02/17/17 20:40; Admin Dose 650 MG; Start 02/04/17 at 19:30 Morphine Sulfate (morphine) 2 mg Q4H PRN IV SEVERE PAIN LEVEL 7-10 Last administered on 02/13/17 21:00; Admin Dose 2 MG; Start 02/04/17 at 19:30 Famotidine (Pepcid Iv) 20 mg Q12 IV Last administered on 02/19/17 08:44; Admin Dose 20 MG; Start 02/04/17 at 21:00 Enoxaparin Sodium (Lovenox) 30 mg DAILY SC Last administered on 02/19/17 08: 43; Admin Dose 30 MG; Start 02/05/17 at 09:00 Aspirin (Halfprin) 81 mg DAILY PO Last administered on 02/19/17 08:44; Admin Dose 81 MG; Start 02/05/17 at 09:00 Atorvastatin Calcium (Lipitor) 40 mg HS PO Last administered on 02/18/17 20: 40; Admin Dose 40 MG; Start 02/05/17 at 21:00 Clopidogrel Bisulfate (plaVIX) 75 mg DAILY PO Last administered on 02/19/17 08:44; Admin Dose 75 MG; Start 02/05/17 at 09:00 Tramadol HCl (Ultram) 50 mg Q6H PRN PO PAIN LEVEL 1-5 Last administered on 03:40; Admin Dose 50 MG; Start 02/04/17 at 22:30 Clonidine (Catapres) 0.1 mg Q6H PRN PO ELEVATED BLOOD PRESSURE Last administered on 02/15/17 21:12; Admin Dose 0.1 MG; Start 02/04/17 at 23:00 Miscellaneous Information 1 ea NOTE XX ; Start 02/04/17 at 23:00 Glucose (Glutose) 15 gm Q15M PRN PO DECREASED GLUCOSE; Start 02/04/17 at 23:00 Glucose (Glutose) 22.5 gm Q15M PRN PO DECREASED GLUCOSE; Start 02/04/17 at 23: 00 Dextrose (D50w Syringe) 25 ml Q15M PRN IV DECREASED GLUCOSE; Start 02/04/17 at 23:00 Dextrose (D50w Syringe) 50 ml Q15M PRN IV DECREASED GLUCOSE; Start 02/04/17 at 23:00 Glucagon (Glucagen) 1 mg Q15M PRN IM DECREASED GLUCOSE; Start 02/04/17 at 23: 00 Glucose (Glutose) 15 gm Q15M PRN BUCCAL DECREASED GLUCOSE; Start 02/04/17 at 23:00 Diagnostic Test (Pha) (Accu-Chek) 1 ea 02 XX Last administered on 02/15/17 02 :02; Admin Dose 1 EA; Start 02/06/17 at 02:00 Insulin Glargine (Lantus) 17 unit DAILY@20 SC Last administered on 02/18/17 20:39; Admin Dose 17 UNIT; Start 02/05/17 at 20:00 Fluconazole (Diflucan) 200 mg DAILY PO Last administered on 02/19/17 08:44; Admin Dose 200 MG; Start 02/06/17 at 09:00 Lidocaine (Lmx 4% Plus) 1 applic PRN PRN TOP W/ DRESSING CHANGES PRN PAIN; Start 02/06/17 at 08:00 Gentamicin Sulfate (Gentamicin 0.1% Oint) 1 applic DAILY TOP Last administered on 02/18/17 09:09; Admin Dose 1 APPLIC; Start 02/09/17 at 09:00 Sodium Hypochlorite (Dakin'S (Dilute 1/40%)) 1 applic DAILY TOP Last administered on 02/18/17 09:10; Admin Dose 1 APPLIC; Start 02/09/17 at 09:00 Cilostazol 50 mg 50 mg BID PO Last administered on 02/19/17 08:44; Admin Dose 50 MG; Start 02/10/17 at 21:00 Vancomycin HCl/ Sodium Chloride (Vancocin/NS) 250 ml @ 83.333 mls/ hr Q24H IVPB Last administered on 02/19/17 05:19; Admin Dose 83.333 MLS/HR; Start at 06:00 IV Flush 10 ml 10 ml PRN PRN IV IV PROTOCOL; Start 02/14/17 at 13:30 Sodium Chloride (1/2 NS) 1,000 ml @ 60 mls/hr [id number] IV Last administered on 02/19/17 17:43; Admin Dose 60 MLS/HR; Start 02/14/17 at 16:00 Levofloxacin (Levaquin) 500 mg DAILY@06 PO Last administered on 02/19/17 05: 19; Admin Dose 500 MG; Start 02/16/17 at 06:00 Ibuprofen (Motrin) 400 mg Q6H PRN PO TEMPERATURE OVER 101 Last administered on 02/17/17 17:28; Admin Dose 400 MG; Start 02/16/17 at 15:30 Tiotropium [place] (Spiriva) 1 inh DAILY INH Last administered on 02/19/17 08 :45; Admin Dose 1 INH; Start 02/18/17 at 11:30 Salmeterol Xinafoate/ Fluticasone (Advair 250/50 Diskus) 1 inh BID INH Last administered on 02/19/17 08:44; Admin Dose 1 INH; Start 02/18/17 at 11:30 Miscellaneous Information (*Rx Drug Level Order Reminder*) VANCOMYCIN TROUGH LEVEL... ONCE ONCE XX ; Start 02/20/17 at 06:00; Stop 02/20/17 at 06:01 JOSELITO AGARWAL NP Feb 19, 2017 18:23
[2017-02-19 20:13] VITALS: BP 143/63; RESP 18
[2017-02-19] MEDS: ATORVASTATIN 40 MG TAB PO SCH (21:05)
[2017-02-19] MEDS: INSULIN GLARGINE [LANtus] 3 ML PEN SC SCH (21:05)
[2017-02-19] MEDS: ALBUTEROL 0.083% (NEB) 2.5 MG/3 ML AMP HHN PRN (22:02)
[2017-02-20] MEDS: ACCU-CHEK XX SCH (02:00)
[2017-02-20 02:55] VITALS: BP 133/60; RESP 18
[2017-02-20] MEDS: LEVOFLOXACIN 500 MG TAB PO SCH (05:15)
[2017-02-20 07:15] VITALS: BP 102/50; RESP 18
[2017-02-20] MEDS: INSULIN ASPART [NOVOLOG] 3 ML PEN SC SCH ×7 (08:00→20:16)
[2017-02-20] MEDS: VANCOMYCIN 1.5 GM in SOD CHLORIDE 0.9% 250 ML IVPB SCH (08:04)
[2017-02-20] MEDS: metFORMIN 500 MG TAB PO SCH ×2 (08:04→17:30)
[2017-02-20] MEDS: LINAGLIPTIN 5 MG TABLET PO SCH (08:04)
[2017-02-20] MEDS: FAMOTIDINE 20 MG INJ IV SCH ×2 (08:43→20:19)
[2017-02-20] MEDS: FLUCONAZOLE 200 MG TAB PO SCH (08:44)
[2017-02-20] MEDS: SALMETEROL/FLUTICASONE 250/50 INHA INH SCH ×2 (08:44→20:19)
[2017-02-20] MEDS: CLOPIDOGREL 75 MG TAB PO SCH (08:44)
[2017-02-20] MEDS: CILOSTAZOL 100 MG TAB PO SCH ×2 (08:44→20:17)
[2017-02-20] MEDS: TIOTROPIUM 18 MCG CAPSULE INHA DEV INH SCH (08:44)
[2017-02-20] MEDS: ASPIRIN (EC) 81 MG TAB PO SCH (08:44)
[2017-02-20] MEDS: ENOXAPARIN 30 MG/0.3 ML SYG SC SCH (08:45)
[2017-02-20] MEDS: SODIUM HYPOCHLORITE 1/40% 1L IRRIG TOP SCH ×2 (09:00→20:31)
[2017-02-20] MEDS: GENTAMICIN 0.1% 15 GM OINT TOP SCH ×2 (09:00→20:31)
--- NOTE | 2017-02-20 13:58 | PN ---
Date/Time of Note Date/Time of Note DATE: 02/20/17 TIME: 13:57 Assessment/Plan VTE Prophylaxis VTE Prophylaxis Intervention: other Lines/Catheters IV Catheter Type (from Nrs): PICC Line Central line still needed: Yes Urinary Cath still in place: No Assessment/Plan Chief Complaint/Hosp Course -Right third toe left great toe ulcers with osteomyelitis of the right foot toe , status post excisional debridement of the right third toe and the left big toe on 02/[address] Raya, podiatry. is following in infection disease consultation. Continue antibiotics per ID. -Severe peripheral arterial disease. Dr. San in vascular surgery consultation, vascular interventions planned. -Urinary tract infection per UA, status post treatment. -Hypertension -Hyperlipidemia -Hyperglycemia in patient with diabetes mellitus type 2. hemoglobin A1c is 10.8. Continue Lantus and pre-meal NovoLog. Dr. Cornejo is following in endocrinology consultation. -Obesity Problems: Subjective 24 Hr Interval Summary Free Text/Dictation Patient has no complaints Exam/Review of Systems Vital Signs Vitals Vital Signs Date Time Temp Pulse Resp B/P Pulse Ox O2 Delivery O2 Flow Rate FiO2 02/20/17 07:15 98.6 59 18 102/50 97 02/19/17 22:02 21 Intake and Output 02/19/17 02/19/17 02/20/17 15:00 23:00 07:00 Intake Total 250 ml 1540 ml 1300 ml Balance 250 ml 1540 ml 1300 ml Exam Constitutional: well developed Head: atraumatic, normocephalic Neck: supple Respiratory: clear to auscultation Cardiovascular: regular rate and rhythm Gastrointestinal: non-tender, soft Extremities: normal pulses Results Result Diagram: 02/19/17 0445 02/19/17 0445 Results 24 hrs Laboratory Tests Test 02/19/17 17:16 02/19/17 21:00 02/20/17 04:45 02/20/17 08:00 Bedside Glucose 143 148 120 Vancomycin Level Trough 13.1 Test 02/20/17 11:57 Bedside Glucose 105 Medications Medications Current Medications Ondansetron HCl (Zofran Inj) 4 mg Q6H PRN IV NAUSEA AND/OR VOMITING Last administered on 02/19/17t 17:23; Admin Dose 4 MG; Start 02/04/17 at 19:30 Acetaminophen (Tylenol Tab) 650 mg Q6H PRN PO PAIN LEVEL 1-3 OR FEVER Last administered on 02/17/17 20:40; Admin Dose 650 MG; Start 02/04/17 at 19:30 Morphine Sulfate (morphine) 2 mg Q4H PRN IV SEVERE PAIN LEVEL 7-10 Last administered on 02/13/17 21:00; Admin Dose 2 MG; Start 02/04/17 at 19:30 Famotidine (Pepcid Iv) 20 mg Q12 IV Last administered on 02/20/17 08:43; Admin Dose 20 MG; Start 02/04/17 at 21:00 Enoxaparin Sodium (Lovenox) 30 mg DAILY SC Last administered on 02/20/17 08: 45; Admin Dose 30 MG; Start 02/05/17 at 09:00 Aspirin (Halfprin) 81 mg DAILY PO Last administered on 02/20/17 08:44; Admin Dose 81 MG; Start 02/05/17 at 09:00 Atorvastatin Calcium (Lipitor) 40 mg HS PO Last administered on 02/19/17 21: 05; Admin Dose 40 MG; Start 02/05/17 at 21:00 Clopidogrel Bisulfate (plaVIX) 75 mg DAILY PO Last administered on 02/20/17 08:44; Admin Dose 75 MG; Start 02/05/17 at 09:00 Tramadol HCl (Ultram) 50 mg Q6H PRN PO PAIN LEVEL 1-5 Last administered on 03:40; Admin Dose 50 MG; Start 02/04/17 at 22:30 Clonidine (Catapres) 0.1 mg Q6H PRN PO ELEVATED BLOOD PRESSURE Last administered on 02/15/17 21:12; Admin Dose 0.1 MG; Start 02/04/17 at 23:00 Miscellaneous Information 1 ea NOTE XX ; Start 02/04/17 at 23:00 Glucose (Glutose) 15 gm Q15M PRN PO DECREASED GLUCOSE; Start 02/04/17 at 23:00 Glucose (Glutose) 22.5 gm Q15M PRN PO DECREASED GLUCOSE; Start 02/04/17 at 23: 00 Dextrose (D50w Syringe) 25 ml Q15M PRN IV DECREASED GLUCOSE; Start 02/04/17 at 23:00 Dextrose (D50w Syringe) 50 ml Q15M PRN IV DECREASED GLUCOSE; Start 02/04/17 at 23:00 Glucagon (Glucagen) 1 mg Q15M PRN IM DECREASED GLUCOSE; Start 02/04/17 at 23: 00 Glucose (Glutose) 15 gm Q15M PRN BUCCAL DECREASED GLUCOSE; Start 02/04/17 at 23:00 Diagnostic Test (Pha) (Accu-Chek) 1 ea 02 XX Last administered on 02/15/17 02 :02; Admin Dose 1 EA; Start 02/06/17 at 02:00 Insulin Glargine (Lantus) 17 unit DAILY@20 SC Last administered on 02/19/17 21:05; Admin Dose 17 UNIT; Start 02/05/17 at 20:00 Fluconazole (Diflucan) 200 mg DAILY PO Last administered on 02/20/17 08:44; Admin Dose 200 MG; Start 02/06/17 at 09:00 Lidocaine (Lmx 4% Plus) 1 applic PRN PRN TOP W/ DRESSING CHANGES PRN PAIN; Start 02/06/17 at 08:00 Gentamicin Sulfate (Gentamicin 0.1% Oint) 1 applic DAILY TOP Last administered on 02/19/17 21:36; Admin Dose 1 APPLIC; Start 02/09/17 at 09:00 Sodium Hypochlorite (Dakin'S (Dilute 1/40%)) 1 applic DAILY TOP Last administered on 02/19/17 21:40; Admin Dose 1 APPLIC; Start 02/09/17 at 09:00 Cilostazol (Pletal) 50 mg BID PO Last administered on 02/20/17 08:44; Admin Dose 50 MG; Start 02/10/17 at 21:00 IV Flush 10 ml 10 ml PRN PRN IV IV PROTOCOL; Start 02/14/17 at 13:30 Sodium Chloride (1/2 NS) 1,000 ml @ 60 mls/hr [id number] IV Last administered on 02/19/17 17:43; Admin Dose 60 MLS/HR; Start 02/14/17 at 16:00 Levofloxacin (Levaquin) 500 mg DAILY@06 PO Last administered on 02/20/17 05: 15; Admin Dose 500 MG; Start 02/16/17 at 06:00 Ibuprofen (Motrin) 400 mg Q6H PRN PO TEMPERATURE OVER 101 Last administered on 02/17/17 17:28; Admin Dose 400 MG; Start 02/16/17 at 15:30 Tiotropium [place] (Spiriva) 1 inh DAILY INH Last administered on 02/20/17 08 :44; Admin Dose 1 INH; Start 02/18/17 at 11:30 Salmeterol Xinafoate/ Fluticasone 1 inh 1 inh BID INH Last administered on 08:44; Admin Dose 1 INH; Start 02/18/17 at 11:30 Vancomycin HCl/ Sodium Chloride (Vancocin/NS) 500 ml @ 125 mls/hr Q24H IVPB ; Start 02/21/17 at 06:00 Guaifenesin/ Codeine Phosphate (Robitussin Ac Liquid Cup) 5 ml Q4H PRN PO COUGH ; Start 02/20/17 at 14:00; Status UNV RADHA DAWN Feb 20, 2017 13:58
[2017-02-20] MEDS ORDERED: GUAIFENESIN/CODEINE 5ML CUP PO PRN (14:00)
[2017-02-20 14:12] VITALS: BP 141/81; RESP 16
--- NOTE | 2017-02-20 14:17 | CONS ---
Date/Time of Note Date/Time of Note DATE: 02/20/17 TIME: 14:15 Assessment/Plan Assessment/Plan Problems: (1) Type 2 diabetes mellitus with foot ulcer Status: Chronic Comment: Good glycemic control on same regimen ordered by primary team. Would continue. 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 reports that breathing treatments have been helping. However, still w/ cough and abnormal lung exam. Defer to primary team for management of this. Consultation Date/Type/Reason Admit Date/Time Feb 04, 2017 at 17:34 Initial Consult Date 02/07/17 Type of Consultation: Endocrinology Reason for Consultation T2DM management Referring Provider: CHRISTIE CABEZAS MD 24 HR Interval Summary Constitutional: improved, no complaints Detailed Summary Respiratory: cough, No shortness of breath (better) Cardiovascular: no complaints Gastrointestinal: no complaints Genitourinary: no complaints Musculoskeletal: no complaints Neurologic: no complaints Exam/Review of Systems Vital Signs Vitals VS - Last 72 Hours, by Label Date Time Temp Pulse Resp B/P Pulse Ox O2 Delivery O2 Flow Rate FiO2 02/20/17 14:12 98.1 57 16 141/81 98 02/20/17 07:15 98.6 59 18 102/50 97 02/20/17 02:55 98.9 72 18 133/60 98 02/19/17 22:02 60 18 96 21 02/19/17 22:02 96 21 02/19/17 20:13 98.6 60 18 143/63 98 02/19/17 14:11 98.7 59 20 143/63 96 02/19/17 07:35 99.0 59 18 121/60 98 02/19/17 02:13 99.2 62 20 123/58 96 02/18/17 19:47 99.0 103 20 134/61 98 02/18/17 14:00 98.6 58 17 143/60 98 02/18/17 08:00 97.8 55 18 113/53 97 02/18/17 02:00 98.2 97 20 102/58 97 02/17/17 21:36 97.9 02/17/17 20:00 100.0 107 20 127/58 97 Vital Signs Date Time Temp Pulse Resp B/P Pulse Ox O2 Delivery O2 Flow Rate FiO2 02/20/17 14:12 98.1 57 16 141/81 98 02/19/17 22:02 21 Intake and Output 02/19/17 02/19/17 02/20/17 15:00 23:00 07:00 Intake Total 250 ml 1540 ml 1300 ml Balance 250 ml 1540 ml 1300 ml Exam Constitutional: obese, oriented Psych: nl mood/affect, no complaints Respiratory: wheezing (L side only) Cardiovascular: nl pulses, regular rate and rhythm, No edema, No murmurs/extra sounds, No rub Gastrointestinal: bowel sounds, nl liver, spleen, non-tender, soft, No mass, No rebound or guarding Musculoskeletal: No nl extremities to inspection (B feet wrapped) Extremities: No clubbing, No cyanosis, No edema 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, nl mental status, nl speech, nl strength Additional Comments Bedside Glucose - 72 Hours Test 02/17/17 17:24 02/17/17 20:35 02/18/17 08:49 02/18/17 12:34 Bedside Glucose 93mg/dL (70-220) 157mg/dL (70-220) 112mg/dL (70-220) 64mg/dL (70-220) L Test 02/18/17 12:51 02/18/17 13:10 02/18/17 13:39 02/18/17 17:36 Bedside Glucose 77mg/dL (70-220) 96mg/dL (70-220) 100mg/dL (70-220) 169mg/dL (70-220) Test 02/18/17 20:36 02/19/17 07:49 02/19/17 12:21 02/19/17 17:16 Bedside Glucose 99mg/dL (70-220) 118mg/dL (70-220) 193mg/dL (70-220) 143mg/dL (70-220) Test 02/19/17 21:00 02/20/17 08:00 02/20/17 11:57 Bedside Glucose 148mg/dL (70-220) 120mg/dL (70-220) 105mg/dL (70-220) Results Result Diagram: 02/19/17 0445 02/19/17 0445 Results 24 hrs Laboratory Tests Test 02/19/17 17:16 02/19/17 21:00 02/20/17 04:45 02/20/17 08:00 Bedside Glucose 143 148 120 Vancomycin Level Trough 13.1 Test 02/20/17 11:57 Bedside Glucose 105 Medications Medications Current Medications Ondansetron HCl (Zofran Inj) 4 mg Q6H PRN IV NAUSEA AND/OR VOMITING Last administered on 02/19/17 17:23; Admin Dose 4 MG; Start 02/04/17 at 19:30 Acetaminophen (Tylenol Tab) 650 mg Q6H PRN PO PAIN LEVEL 1-3 OR FEVER Last administered on 02/17/17 20:40; Admin Dose 650 MG; Start 02/04/17 at 19:30 Morphine Sulfate (morphine) 2 mg Q4H PRN IV SEVERE PAIN LEVEL 7-10 Last administered on 02/13/17 21:00; Admin Dose 2 MG; Start 02/04/17 at 19:30 Famotidine (Pepcid Iv) 20 mg Q12 IV Last administered on 02/20/17 08:43; Admin Dose 20 MG; Start 02/04/17 at 21:00 Enoxaparin Sodium (Lovenox) 30 mg DAILY SC Last administered on 02/20/17 08: 45; Admin Dose 30 MG; Start 02/05/17 at 09:00 Aspirin (Halfprin) 81 mg DAILY PO Last administered on 02/20/17 08:44; Admin Dose 81 MG; Start 02/05/17 at 09:00 Atorvastatin Calcium (Lipitor) 40 mg HS PO Last administered on 02/19/17 21: 05; Admin Dose 40 MG; Start 02/05/17 at 21:00 Clopidogrel Bisulfate (plaVIX) 75 mg DAILY PO Last administered on 02/20/17 08:44; Admin Dose 75 MG; Start 02/05/17 at 09:00 Tramadol HCl (Ultram) 50 mg Q6H PRN PO PAIN LEVEL 1-5 Last administered on 03:40; Admin Dose 50 MG; Start 02/04/17 at 22:30 Clonidine (Catapres) 0.1 mg Q6H PRN PO ELEVATED BLOOD PRESSURE Last administered on 02/15/17 21:12; Admin Dose 0.1 MG; Start 02/04/17 at 23:00 Miscellaneous Information 1 ea NOTE XX ; Start 02/04/17 at 23:00 Glucose (Glutose) 15 gm Q15M PRN PO DECREASED GLUCOSE; Start 02/04/17 at 23:00 Glucose (Glutose) 22.5 gm Q15M PRN PO DECREASED GLUCOSE; Start 02/04/17 at 23: 00 Dextrose (D50w Syringe) 25 ml Q15M PRN IV DECREASED GLUCOSE; Start 02/04/17 at 23:00 Dextrose (D50w Syringe) 50 ml Q15M PRN IV DECREASED GLUCOSE; Start 02/04/17 at 23:00 Glucagon (Glucagen) 1 mg Q15M PRN IM DECREASED GLUCOSE; Start 02/04/17 at 23: 00 Glucose (Glutose) 15 gm Q15M PRN BUCCAL DECREASED GLUCOSE; Start 02/04/17 at 23:00 Diagnostic Test (Pha) (Accu-Chek) 1 ea 02 XX Last administered on 02/15/17 02 :02; Admin Dose 1 EA; Start 02/06/17 at 02:00 Insulin Glargine (Lantus) 17 unit DAILY@20 SC Last administered on 02/19/17 21:05; Admin Dose 17 UNIT; Start 02/05/17 at 20:00 Fluconazole (Diflucan) 200 mg DAILY PO Last administered on 02/20/17 08:44; Admin Dose 200 MG; Start 02/06/17 at 09:00 Lidocaine (Lmx 4% Plus) 1 applic PRN PRN TOP W/ DRESSING CHANGES PRN PAIN; Start 02/06/17 at 08:00 Gentamicin Sulfate (Gentamicin 0.1% Oint) 1 applic DAILY TOP Last administered on 02/19/17 21:36; Admin Dose 1 APPLIC; Start 02/09/17 at 09:00 Sodium Hypochlorite (Dakin'S (Dilute 1/40%)) 1 applic DAILY TOP Last administered on 02/19/17 21:40; Admin Dose 1 APPLIC; Start 02/09/17 at 09:00 Cilostazol (Pletal) 50 mg BID PO Last administered on 02/20/17 08:44; Admin Dose 50 MG; Start 02/10/17 at 21:00 IV Flush 10 ml 10 ml PRN PRN IV IV PROTOCOL; Start 02/14/17 at 13:30 Sodium Chloride (1/2 NS) 1,000 ml @ 60 mls/hr [id number] IV Last administered on 02/19/17 17:43; Admin Dose 60 MLS/HR; Start 02/14/17 at 16:00 Levofloxacin (Levaquin) 500 mg DAILY@06 PO Last administered on 02/20/17 05: 15; Admin Dose 500 MG; Start 02/16/17 at 06:00 Ibuprofen (Motrin) 400 mg Q6H PRN PO TEMPERATURE OVER 101 Last administered on 02/17/17 17:28; Admin Dose 400 MG; Start 02/16/17 at 15:30 Tiotropium [place] (Spiriva) 1 inh DAILY INH Last administered on 02/20/17 08 :44; Admin Dose 1 INH; Start 02/18/17 at 11:30 Salmeterol Xinafoate/ Fluticasone 1 inh 1 inh BID INH Last administered on 08:44; Admin Dose 1 INH; Start 02/18/17 at 11:30 Vancomycin HCl/ Sodium Chloride (Vancocin/NS) 500 ml @ 125 mls/hr Q24H IVPB ; Start 02/21/17 at 06:00 Guaifenesin/ Codeine Phosphate (Robitussin Ac Liquid Cup) 5 ml Q4H PRN PO COUGH ; Start 02/20/17 at 14:00; Status ARTURO DANIEL MD Feb 20, 2017 14:17
[2017-02-20] MEDS: ALBUTEROL 0.083% (NEB) 2.5 MG/3 ML AMP HHN PRN (14:38)
[2017-02-20] MEDS: SOD CHLORIDE 0.45% 1,000 ML IV SCH (15:46)
--- NOTE | 2017-02-20 20:16 | CONS ---
Date/Time of Note Date/Time of Note DATE: 02/20/17 TIME: 20:15 Assessment/Plan Assessment/Plan Chief Complaint/Hosp Course SUBJECTIVE: Alert, looks comfortable, no fevers MICROBIOLOGY: Wound culture negative ANTIMICROBIALS: 1. Vancomycin 2. Levaquin. 3. Diflucan PHYSICAL EXAMINATION: GENERAL: Well-developed elderly woman in no distress. HEENT: Head atraumatic, normocephalic. Sclerae anicteric. Buccal mucosa pink. NECK: Supple. CHEST: Rise symmetrical. Breath sounds clear. HEART: S1, S2. ABDOMEN: Soft. Bowel tones present. ASSESSMENT: 1. Bilateral diabetic foot ulcerations with exposed bone of the left toe, status post incision and drainage. 2. Diabetes. 3. Diabetes neuropathy. 4. Positive urinalysis on admission PLAN: The patient remains stable. Continue abx for 4 more weeks, f/u podiatry rec-s staff Problems: Consultation Date/Type/Reason Admit Date/Time Feb 04, 2017 at 17:34 Initial Consult Date 02/07/17 Type of Consultation: ID Referring Provider: CHRISTIE CABEZAS MD Exam/Review of Systems Vital Signs Vitals Vital Signs Date Time Temp Pulse Resp B/P Pulse Ox O2 Delivery O2 Flow Rate FiO2 02/20/17 14:40 17 96 21 02/20/17 14:12 98.1 57 141/81 Intake and Output 02/19/17 02/19/17 02/20/17 15:00 23:00 07:00 Intake Total 250 ml 1540 ml 1300 ml Balance 250 ml 1540 ml 1300 ml Results Result Diagram: 02/19/17 0445 02/19/17 0445 Results 24 hrs Laboratory Tests Test 02/19/17 21:00 02/20/17 04:45 02/20/17 08:00 02/20/17 11:57 Bedside Glucose 148 120 105 Vancomycin Level Trough 13.1 Test 02/20/17 17:28 Bedside Glucose 99 Medications Medications Current Medications Ondansetron HCl (Zofran Inj) 4 mg Q6H PRN IV NAUSEA AND/OR VOMITING Last administered on 02/19/17 17:23; Admin Dose 4 MG; Start 02/04/17 at 19:30 Acetaminophen (Tylenol Tab) 650 mg Q6H PRN PO PAIN LEVEL 1-3 OR FEVER Last administered on 02/17/17 20:40; Admin Dose 650 MG; Start 02/04/17 at 19:30 Morphine Sulfate (morphine) 2 mg Q4H PRN IV SEVERE PAIN LEVEL 7-10 Last administered on 02/13/17 21:00; Admin Dose 2 MG; Start 02/04/17 at 19:30 Famotidine (Pepcid Iv) 20 mg Q12 IV Last administered on 02/20/17 08:43; Admin Dose 20 MG; Start 02/04/17 at 21:00 Enoxaparin Sodium (Lovenox) 30 mg DAILY SC Last administered on 02/20/17 08: 45; Admin Dose 30 MG; Start 02/05/17 at 09:00 Aspirin (Halfprin) 81 mg DAILY PO Last administered on 02/20/17 08:44; Admin Dose 81 MG; Start 02/05/17 at 09:00 Atorvastatin Calcium (Lipitor) 40 mg HS PO Last administered on 02/19/17 21: 05; Admin Dose 40 MG; Start 02/05/17 at 21:00 Clopidogrel Bisulfate (plaVIX) 75 mg DAILY PO Last administered on 02/20/17 08:44; Admin Dose 75 MG; Start 02/05/17 at 09:00 Tramadol HCl (Ultram) 50 mg Q6H PRN PO PAIN LEVEL 1-5 Last administered on 03:40; Admin Dose 50 MG; Start 02/04/17 at 22:30 Clonidine (Catapres) 0.1 mg Q6H PRN PO ELEVATED BLOOD PRESSURE Last administered on 02/15/17 21:12; Admin Dose 0.1 MG; Start 02/04/17 at 23:00 Miscellaneous Information 1 ea NOTE XX ; Start 02/04/17 at 23:00 Glucose (Glutose) 15 gm Q15M PRN PO DECREASED GLUCOSE; Start 02/04/17 at 23:00 Glucose (Glutose) 22.5 gm Q15M PRN PO DECREASED GLUCOSE; Start 02/04/17 at 23: 00 Dextrose (D50w Syringe) 25 ml Q15M PRN IV DECREASED GLUCOSE; Start 02/04/17 at 23:00 Dextrose (D50w Syringe) 50 ml Q15M PRN IV DECREASED GLUCOSE; Start 02/04/17 at 23:00 Glucagon (Glucagen) 1 mg Q15M PRN IM DECREASED GLUCOSE; Start 02/04/17 at 23: 00 Glucose (Glutose) 15 gm Q15M PRN BUCCAL DECREASED GLUCOSE; Start 02/04/17 at 23:00 Diagnostic Test (Pha) (Accu-Chek) 1 ea 02 XX Last administered on 02/15/17 02 :02; Admin Dose 1 EA; Start 02/06/17 at 02:00 Insulin Glargine (Lantus) 17 unit DAILY@20 SC Last administered on 02/19/17 21:05; Admin Dose 17 UNIT; Start 02/05/17 at 20:00 Fluconazole (Diflucan) 200 mg DAILY PO Last administered on 02/20/17 08:44; Admin Dose 200 MG; Start 02/06/17 at 09:00 Lidocaine (Lmx 4% Plus) 1 applic PRN PRN TOP W/ DRESSING CHANGES PRN PAIN; Start 02/06/17 at 08:00 Gentamicin Sulfate (Gentamicin 0.1% Oint) 1 applic DAILY TOP Last administered on 02/19/17 21:36; Admin Dose 1 APPLIC; Start 02/09/17 at 09:00 Sodium Hypochlorite (Dakin'S (Dilute 1/40%)) 1 applic DAILY TOP Last administered on 02/19/17 21:40; Admin Dose 1 APPLIC; Start 02/09/17 at 09:00 Cilostazol (Pletal) 50 mg BID PO Last administered on 02/20/17 08:44; Admin Dose 50 MG; Start 02/10/17 at 21:00 IV Flush 10 ml 10 ml PRN PRN IV IV PROTOCOL; Start 02/14/17 at 13:30 Sodium Chloride (1/2 NS) 1,000 ml @ 60 mls/hr [id number] IV Last administered on 02/20/17 15:46; Admin Dose 60 MLS/HR; Start 02/14/17 at 16:00 Levofloxacin (Levaquin) 500 mg DAILY@06 PO Last administered on 02/20/17 05: 15; Admin Dose 500 MG; Start 02/16/17 at 06:00 Ibuprofen (Motrin) 400 mg Q6H PRN PO TEMPERATURE OVER 101 Last administered on 02/17/17 17:28; Admin Dose 400 MG; Start 02/16/17 at 15:30 Tiotropium [place] (Spiriva) 1 inh DAILY INH Last administered on 02/20/17 08 :44; Admin Dose 1 INH; Start 02/18/17 at 11:30 Salmeterol Xinafoate/ Fluticasone 1 inh 1 inh BID INH Last administered on 08:44; Admin Dose 1 INH; Start 02/18/17 at 11:30 Vancomycin HCl/ Sodium Chloride (Vancocin/NS) 500 ml @ 125 mls/hr Q24H IVPB ; Start 02/21/17 at 06:00 Guaifenesin/ Codeine Phosphate (Robitussin Ac Liquid Cup) 5 ml Q4H PRN PO COUGH ; Start 02/20/17 at 14:00 JOSELITO AGARWAL NP Feb 20, 2017 20:16
[2017-02-20] MEDS: ATORVASTATIN 40 MG TAB PO SCH (20:17)
[2017-02-20] MEDS: INSULIN GLARGINE [LANtus] 3 ML PEN SC SCH (20:19)
[2017-02-20 20:22] VITALS: BP 138/63; RESP 19
--- NOTE | 2017-02-20 21:56 | CONS ---
Date/Time of Note Date/Time of Note DATE: 02/20/17 TIME: 21:54 Assessment/Plan Assessment/Plan Additional Assessment/Plan 1. acute kidney injury on CKD due to ATN from SIRS 2. SIRS 3. BilaterL LE diabetic foot ulcer s/p I & D 4. possibel CKD due to diabetic nephropathy 5. peripheral vasculr disease 6. Hypokalemia 7. Anemia of Chronic disease Plan : Continue current IV abx, Renally dose all abx, Montior Electroltyes and Cr KCL replacement, Endocrine Folliwng Cr iproved to 1.06 with IVF hydration - no labs today to review yet, will order AM labs Consultation Date/Type/Reason Admit Date/Time Feb 04, 2017 at 17:34 Initial Consult Date 02/19/17 Type of Consultation: NEPHROLOGY Referring Provider: CHRISTIE CABEZAS MD 24 HR Interval Summary Free Text/Dictation No labs today, Cr was better yesterday, BS controlled Exam/Review of Systems Vital Signs Vitals Vital Signs Date Time Temp Pulse Resp B/P Pulse Ox O2 Delivery O2 Flow Rate FiO2 02/20/17 20:22 98.5 57 19 138/63 98 02/20/17 14:40 21 Intake and Output 02/19/17 02/19/17 02/20/17 15:00 23:00 07:00 Intake Total 250 ml 1540 ml 1300 ml Balance 250 ml 1540 ml 1300 ml Exam GENERAL: Afebrile, VSS, NAD HEENT: Unremarkable NECK: Full ROM CHEST: Equal chest rise bilaterally, no distress HEART: RRR pulse ABDOMEN: Soft EXT: Warm, no edema, moves extremities => Bilateral feet DSG C/D/I SKIN: No rash, no diaphoresis Results Result Diagram: 02/19/17 0445 02/19/17 0445 Results 24 hrs Laboratory Tests Test 02/20/17 04:45 02/20/17 08:00 02/20/17 11:57 02/20/17 17:28 Vancomycin Level Trough 13.1 Bedside Glucose 120 105 99 Test 02/20/17 20:15 Bedside Glucose 86 Medications Medications Current Medications Ondansetron HCl (Zofran Inj) 4 mg Q6H PRN IV NAUSEA AND/OR VOMITING Last administered on 02/19/17t 17:23; Admin Dose 4 MG; Start 02/04/17 at 19:30 Acetaminophen (Tylenol Tab) 650 mg Q6H PRN PO PAIN LEVEL 1-3 OR FEVER Last administered on 02/17/17 20:40; Admin Dose 650 MG; Start 02/04/17 at 19:30 Morphine Sulfate (morphine) 2 mg Q4H PRN IV SEVERE PAIN LEVEL 7-10 Last administered on 02/13/17 21:00; Admin Dose 2 MG; Start 02/04/17 at 19:30 Famotidine (Pepcid Iv) 20 mg Q12 IV Last administered on 02/20/17 20:19; Admin Dose 20 MG; Start 02/04/17 at 21:00 Enoxaparin Sodium (Lovenox) 30 mg DAILY SC Last administered on 02/20/17 08: 45; Admin Dose 30 MG; Start 02/05/17 at 09:00 Aspirin (Halfprin) 81 mg DAILY PO Last administered on 02/20/17 08:44; Admin Dose 81 MG; Start 02/05/17 at 09:00 Atorvastatin Calcium (Lipitor) 40 mg HS PO Last administered on 02/20/17 20: 17; Admin Dose 40 MG; Start 02/05/17 at 21:00 Clopidogrel Bisulfate (plaVIX) 75 mg DAILY PO Last administered on 02/20/17 08:44; Admin Dose 75 MG; Start 02/05/17 at 09:00 Tramadol HCl (Ultram) 50 mg Q6H PRN PO PAIN LEVEL 1-5 Last administered on 03:40; Admin Dose 50 MG; Start 02/04/17 at 22:30 Clonidine (Catapres) 0.1 mg Q6H PRN PO ELEVATED BLOOD PRESSURE Last administered on 02/15/17 21:12; Admin Dose 0.1 MG; Start 02/04/17 at 23:00 Miscellaneous Information 1 ea NOTE XX ; Start 02/04/17 at 23:00 Glucose (Glutose) 15 gm Q15M PRN PO DECREASED GLUCOSE; Start 02/04/17 at 23:00 Glucose (Glutose) 22.5 gm Q15M PRN PO DECREASED GLUCOSE; Start 02/04/17 at 23: 00 Dextrose (D50w Syringe) 25 ml Q15M PRN IV DECREASED GLUCOSE; Start 02/04/17 at 23:00 Dextrose (D50w Syringe) 50 ml Q15M PRN IV DECREASED GLUCOSE; Start 02/04/17 at 23:00 Glucagon (Glucagen) 1 mg Q15M PRN IM DECREASED GLUCOSE; Start 02/04/17 at 23: 00 Glucose (Glutose) 15 gm Q15M PRN BUCCAL DECREASED GLUCOSE; Start 02/04/17 at 23:00 Diagnostic Test (Pha) (Accu-Chek) 1 ea 02 XX Last administered on 02/15/17 02 :02; Admin Dose 1 EA; Start 02/06/17 at 02:00 Insulin Glargine (Lantus) 17 unit DAILY@20 SC Last administered on 02/20/17 20:19; Admin Dose 17 UNIT; Start 02/05/17 at 20:00 Fluconazole (Diflucan) 200 mg DAILY PO Last administered on 02/20/17 08:44; Admin Dose 200 MG; Start 02/06/17 at 09:00 Lidocaine (Lmx 4% Plus) 1 applic PRN PRN TOP W/ DRESSING CHANGES PRN PAIN; Start 02/06/17 at 08:00 Gentamicin Sulfate (Gentamicin 0.1% Oint) 1 applic DAILY TOP Last administered on 02/20/17 20:31; Admin Dose 1 APPLIC; Start 02/09/17 at 09:00 Sodium Hypochlorite (Dakin'S (Dilute 1/40%)) 1 applic DAILY TOP Last administered on 02/20/17 20:31; Admin Dose 1 APPLIC; Start 02/09/17 at 09:00 Cilostazol (Pletal) 50 mg BID PO Last administered on 02/20/17 20:17; Admin Dose 50 MG; Start 02/10/17 at 21:00 IV Flush 10 ml 10 ml PRN PRN IV IV PROTOCOL; Start 02/14/17 at 13:30 Sodium Chloride (1/2 NS) 1,000 ml @ 60 mls/hr [id number] IV Last administered on 02/20/17 15:46; Admin Dose 60 MLS/HR; Start 02/14/17 at 16:00 Levofloxacin (Levaquin) 500 mg DAILY@06 PO Last administered on 02/20/17 05: 15; Admin Dose 500 MG; Start 02/16/17 at 06:00 Ibuprofen (Motrin) 400 mg Q6H PRN PO TEMPERATURE OVER 101 Last administered on 02/17/17 17:28; Admin Dose 400 MG; Start 02/16/17 at 15:30 Tiotropium [place] (Spiriva) 1 inh DAILY INH Last administered on 02/20/17 08 :44; Admin Dose 1 INH; Start 02/18/17 at 11:30 Salmeterol Xinafoate/ Fluticasone 1 inh 1 inh BID INH Last administered on 20:19; Admin Dose 1 INH; Start 02/18/17 at 11:30 Vancomycin HCl/ Sodium Chloride (Vancocin/NS) 500 ml @ 125 mls/hr Q24H IVPB ; Start 02/21/17 at 06:00 Guaifenesin/ Codeine Phosphate (Robitussin Ac Liquid Cup) 5 ml Q4H PRN PO COUGH ; Start 02/20/17 at 14:00 MARIAN BURNS MD Feb 20, 2017 21:55
[2017-02-21] MEDS: ACCU-CHEK XX SCH (02:00)
[2017-02-21 02:18] VITALS: BP 134/65; RESP 21
[2017-02-21] MEDS: LEVOFLOXACIN 500 MG TAB PO SCH (05:28)
[2017-02-21] MEDS ORDERED: VANCOMYCIN 1.75 GM in NS 500 ML IVPB SCH (06:00)
[2017-02-21 06:16] LABS: BASOPHILS % 0.3 % (0.0-2.0); EOSINOPHILS % 0.8 % (0.0-7.0); HEMATOCRIT 25.7 % (37.0-47.0); HEMOGLOBIN 8.6 g/dl (12.0-16.0); LYMPHOCYTES % 26.6 % (15.0-51.0); MEAN CORPUSCULAR HEMOGLOBIN 29.4 pg (29.0-33.0); MEAN CORPUSCULAR HGB CONC 33.5 g/dl (32.0-37.0); MEAN CORPUSCULAR VOLUME 87.7 fl (82.0-101.0); MEAN PLATELET VOLUME 9.3 fl (7.4-10.4); MONOCYTE # 0.3 10^3/ul (0.3-0.9); MONOCYTES % 8.7 % (0.0-11.0); NEUTROPHIL # 2.3 10^3/ul (1.6-7.5); NEUTROPHILS % 63.1 % (39.0-77.0); PLATELET COUNT 220 10^3/UL (140-415); RED BLOOD COUNT 2.93 10^6/ul (4.20-5.40); RED CELL DISTRIBUTION WIDTH 12.2 % (11.5-14.5); WHITE BLOOD COUNT 3.7 10^3/ul (4.8-10.8)
[2017-02-21 06:52] LABS: CALCIUM 8.1 mg/dl (8.4-10.2); CREATININE 1.02 mg/dl (0.44-1.00); POTASSIUM 3.9 mmol/L (3.5-5.1)
[2017-02-21 07:34] VITALS: BP 133/62; RESP 20
[2017-02-21] MEDS: INSULIN ASPART [NOVOLOG] 3 ML PEN SC SCH ×5 (07:35→17:07)
[2017-02-21] MEDS: GENTAMICIN 0.1% 15 GM OINT TOP SCH ×2 (08:06→11:58)
[2017-02-21] MEDS: metFORMIN 500 MG TAB PO SCH (08:09)
[2017-02-21] MEDS: CILOSTAZOL 100 MG TAB PO SCH (08:09)
[2017-02-21] MEDS: FLUCONAZOLE 200 MG TAB PO SCH (08:09)
[2017-02-21] MEDS: CLOPIDOGREL 75 MG TAB PO SCH (08:10)
[2017-02-21] MEDS: LINAGLIPTIN 5 MG TABLET PO SCH (08:10)
[2017-02-21] MEDS: FAMOTIDINE 20 MG INJ IV SCH (08:10)
[2017-02-21] MEDS: ASPIRIN (EC) 81 MG TAB PO SCH (08:10)
[2017-02-21] MEDS: SALMETEROL/FLUTICASONE 250/50 INHA INH SCH (08:10)
[2017-02-21] MEDS: TIOTROPIUM 18 MCG CAPSULE INHA DEV INH SCH (08:10)
[2017-02-21] MEDS: ENOXAPARIN 30 MG/0.3 ML SYG SC SCH (08:11)
[2017-02-21] MEDS: SODIUM HYPOCHLORITE 1/40% 1L IRRIG TOP SCH (11:58)
[2017-02-21] MEDS: traMADol 50 MG TAB PO PRN (12:04)
[2017-02-21] MEDS: SOD CHLORIDE 0.45% 1,000 ML IV SCH (12:57)
--- NOTE | 2017-02-21 13:04 | DS ---
Date/Time of Note Date/Time of Note DATE: 02/21/17 TIME: 13:02 Discharge Summary Admission/Discharge Info Admit Date/Time Feb 04, 2017 at 17:34 Discharge Date/Time 02/21/17 Patient Condition: Fair Consults infectious disease surgery nephrology podiatry vascular surgery Hx of Present Illness Patient with diabetes, renal insufficiency comes in with leg/foot cellulitis Hospital Course Patient has right foot osteomyelitis s/p debridement. Patient will need continued antibiotics but is stable to have it given as an outpatient -Right third toe left great toe ulcers with osteomyelitis of the right foot toe , status post excisional debridement of the right third toe and the left big toe on 02/[address] Raya, podiatry. is following in infection disease consultation. Continue antibiotics per ID. -Severe peripheral arterial disease. Dr. San in vascular surgery consultation, vascular interventions planned. -Urinary tract infection per UA, status post treatment. -Hypertension -Hyperlipidemia -Hyperglycemia in patient with diabetes mellitus type 2. hemoglobin A1c is 10.8. Continue Lantus and pre-meal NovoLog. Dr. Cornejo is following in endocrinology consultation. -Obesity Home Meds Active Scripts Sitagliptin Phos/Metformin HCl (Janumet 50-1,000 mg Tablet) 1 Each Tablet, 1 EACH PO BID, #180 TAB Prov:OSMANY PALACIOS MD 07/12/16 Benazepril Hcl* (Benazepril Hcl*) 20 Mg Tablet, 20 MG PO DAILY, #90 TAB Prov:OSMANY PALACIOS MD 07/12/16 Atorvastatin* (Atorvastatin*) 40 Mg Tablet, 40 MG PO HS, #90 TAB Prov:OSMANY PALACIOS MD 07/12/16 Pantoprazole* (Pantoprazole*) 40 Mg Tablet., 40 MG PO DAILY@06 for 30 Days Prov:RICCARDO GARY MD 06/19/16 Tramadol HCl (Tramadol HCl) 50 Mg Tablet, 50 MG PO Q6H Y for PAIN LEVEL 1-5, #1 TAB Prov:RICCARDO GARY MD 06/19/16 Reported Medications Cephalexin* (Cephalexin*) 500 Mg Capsule, 500 MG PO Q6, #28 CAP started 01-28-17 for 10 days 02/04/17 Clopidogrel Bisulfate (Clopidogrel) 75 Mg Tablet, 75 MG PO DAILY, #30 TAB 02/04/17 Pantoprazole* (Protonix*) 40 Mg Tablet.dr, 40 MG PO DAILY, TAB 02/04/17 Aspirin (Low Dose Aspirin) 81 Mg Tablet.dr, 81 MG PO DAILY, #30 TAB 02/04/17 Glipizide* (Glipizide*) 10 Mg Tablet, 10 MG PO BID, TAB 02/04/17 Primary Care Provider Osmany Palacios MD Pending Labs Laboratory Tests Test 02/20/17 17:28 02/20/17 20:15 02/21/17 05:27 02/21/17 08:04 Bedside Glucose 99mg/dL (70-220) 86mg/dL (70-220) 110mg/dL (70-220) White Blood Count 3.710^3/ul (4.8-10.8) Red Blood Count 2.9310^6/ul (4.20-5.40) Hemoglobin 8.6g/dl (12.0-16.0) Hematocrit 25.7% (37.0-47.0) Mean Corpuscular Volume 87.7fl (82.0-101.0) Mean Corpuscular Hemoglobin 29.4pg (29.0-33.0) Mean Corpuscular Hemoglobin Concent 33.5g/dl (32.0-37.0) Red Cell Distribution Width 12.2% (11.5-14.5) Platelet Count 42053^3/UL (140-415) Mean Platelet Volume 9.3fl (7.4-10.4) Neutrophils % 63.1% (39.0-77.0) Lymphocytes % 26.6% (15.0-51.0) Monocytes % 8.7% (0.0-11.0) Eosinophils % 0.8% (0.0-7.0) Basophils % 0.3% (0.0-2.0) Nucleated Red Blood Cells % 0.0/100WBC (0.0-0.0) Neutrophils # 2.310^3/ul (1.6-7.5) Lymphocytes # 1.010^3/ul (0.8-2.9) Monocytes # 0.310^3/ul (0.3-0.9) Eosinophils # 0.010^3/ul (0.0-0.5) Basophils # 0.010^3/ul (0.0-0.1) Nucleated Red Blood Cells # 0.010^3/ul (0.0-0.0) Sodium Level 138mmol/L (135-144) Potassium Level 3.9mmol/L (3.5-5.1) Chloride Level 105mmol/L (97-110) Carbon Dioxide Level 23mmol/L (21-31) Anion Gap 14 (8-16) Blood Urea Nitrogen 6mg/dl (7-20) Creatinine 1.02mg/dl (0.44-1.00) Glucose Level 95mg/dl (70-220) Calcium Level 8.1mg/dl (8.4-10.2) Test 02/21/17 11:37 Bedside Glucose 114mg/dL (70-220) RADHA DAWN Feb 21, 2017 13:04
[2017-02-21] MEDS: ALBUTEROL 0.083% (NEB) 2.5 MG/3 ML AMP HHN PRN (13:14)
[2017-02-21 14:46] VITALS: BP 141/62; RESP 20
--- NOTE | 2017-02-21 16:44 | CONS ---
Date/Time of Note Date/Time of Note DATE: 02/21/17 TIME: 16:44 Assessment/Plan Assessment/Plan Additional Assessment/Plan 1. acute kidney injury on CKD due to ATN from SIRS 2. SIRS 3. BilaterL LE diabetic foot ulcer s/p I & D 4. possibel CKD due to diabetic nephropathy 5. peripheral vasculr disease 6. Hypokalemia 7. Anemia of Chronic disease Plan : Continue current IV abx, Renally dose all abx, Montior Electroltyes and Cr KCL replacement, Endocrine Folliwng Cr iproved to 1.02 with IVF hydration - will follow peripherally Consultation Date/Type/Reason Admit Date/Time Feb 04, 2017 at 17:34 Initial Consult Date 02/19/17 Type of Consultation: NEPHROLOGY Referring Provider: CHRISTIE CABEZAS MD 24 HR Interval Summary Free Text/Dictation Cr 1.02, Electrolyte stable Exam/Review of Systems Vital Signs Vitals Vital Signs Date Time Temp Pulse Resp B/P Pulse Ox O2 Delivery O2 Flow Rate FiO2 02/21/17 14:46 98.5 113 20 141/62 96 02/21/17 13:25 21 Intake and Output 02/20/17 02/20/17 02/21/17 15:00 23:00 07:00 Intake Total 250 ml 1170 ml 1110 ml Balance 250 ml 1170 ml 1110 ml Exam GENERAL: Afebrile, VSS, NAD HEENT: Unremarkable NECK: Full ROM CHEST: Equal chest rise bilaterally, no distress HEART: RRR pulse ABDOMEN: Soft EXT: Warm, no edema, moves extremities => Bilateral feet DSG C/D/I SKIN: No rash, no diaphoresis Results Result Diagram: 02/21/1727 02/21/17526 Results 24 hrs Laboratory Tests Test 02/20/17 17:28 02/20/17 20:15 02/21/17 05:27 02/21/17 08:04 Bedside Glucose 99 86 110 White Blood Count 3.7 L Red Blood Count 2.93 L Hemoglobin 8.6 L Hematocrit 25.7 L Mean Corpuscular Volume 87.7 Mean Corpuscular Hemoglobin 29.4 Mean Corpuscular Hemoglobin Concent 33.5 Red Cell Distribution Width 12.2 Platelet Count 220 Mean Platelet Volume 9.3 Neutrophils % 63.1 Lymphocytes % 26.6 Monocytes % 8.7 Eosinophils % 0.8 Basophils % 0.3 Nucleated Red Blood Cells % 0.0 Neutrophils # 2.3 Lymphocytes # 1.0 Monocytes # 0.3 Eosinophils # 0.0 Basophils # 0.0 Nucleated Red Blood Cells # 0.0 Sodium Level 138 Potassium Level 3.9 Chloride Level 105 Carbon Dioxide Level 23 Anion Gap 14 Blood Urea Nitrogen 6 L Creatinine 1.02 H Glucose Level 95 Calcium Level 8.1 L Test 02/21/17 11:37 Bedside Glucose 114 Medications Medications Current Medications Ondansetron HCl (Zofran Inj) 4 mg Q6H PRN IV NAUSEA AND/OR VOMITING Last administered on 02/19/17 17:23; Admin Dose 4 MG; Start 02/04/17 at 19:30 Acetaminophen (Tylenol Tab) 650 mg Q6H PRN PO PAIN LEVEL 1-3 OR FEVER Last administered on 02/17/17 20:40; Admin Dose 650 MG; Start 02/04/17 at 19:30 Morphine Sulfate (morphine) 2 mg Q4H PRN IV SEVERE PAIN LEVEL 7-10 Last administered on 02/13/17 21:00; Admin Dose 2 MG; Start 02/04/17 at 19:30 Famotidine (Pepcid Iv) 20 mg Q12 IV Last administered on 02/21/17 08:10; Admin Dose 20 MG; Start 02/04/17 at 21:00 Enoxaparin Sodium (Lovenox) 30 mg DAILY SC Last administered on 02/21/17 08: 11; Admin Dose 30 MG; Start 02/05/17 at 09:00 Aspirin (Halfprin) 81 mg DAILY PO Last administered on 02/21/17 08:10; Admin Dose 81 MG; Start 02/05/17 at 09:00 Atorvastatin Calcium (Lipitor) 40 mg HS PO Last administered on 02/20/17 20: 17; Admin Dose 40 MG; Start 02/05/17 at 21:00 Clopidogrel Bisulfate (plaVIX) 75 mg DAILY PO Last administered on 02/21/17 08:10; Admin Dose 75 MG; Start 02/05/17 at 09:00 Tramadol HCl (Ultram) 50 mg Q6H PRN PO PAIN LEVEL 1-5 Last administered on 12:04; Admin Dose 50 MG; Start 02/04/17 at 22:30 Clonidine (Catapres) 0.1 mg Q6H PRN PO ELEVATED BLOOD PRESSURE Last administered on 02/15/17 21:12; Admin Dose 0.1 MG; Start 02/04/17 at 23:00 Miscellaneous Information 1 ea NOTE XX ; Start 02/04/17 at 23:00 Glucose (Glutose) 15 gm Q15M PRN PO DECREASED GLUCOSE; Start 02/04/17 at 23:00 Glucose (Glutose) 22.5 gm Q15M PRN PO DECREASED GLUCOSE; Start 02/04/17 at 23: 00 Dextrose (D50w Syringe) 25 ml Q15M PRN IV DECREASED GLUCOSE; Start 02/04/17 at 23:00 Dextrose (D50w Syringe) 50 ml Q15M PRN IV DECREASED GLUCOSE; Start 02/04/17 at 23:00 Glucagon (Glucagen) 1 mg Q15M PRN IM DECREASED GLUCOSE; Start 02/04/17 at 23: 00 Glucose (Glutose) 15 gm Q15M PRN BUCCAL DECREASED GLUCOSE; Start 02/04/17 at 23:00 Diagnostic Test (Pha) (Accu-Chek) 1 ea 02 XX Last administered on 02/15/17 02 :02; Admin Dose 1 EA; Start 02/06/17 at 02:00 Insulin Glargine (Lantus) 17 unit DAILY@20 SC Last administered on 02/20/17 20:19; Admin Dose 17 UNIT; Start 02/05/17 at 20:00 Fluconazole (Diflucan) 200 mg DAILY PO Last administered on 02/21/17 08:09; Admin Dose 200 MG; Start 02/06/17 at 09:00 Lidocaine (Lmx 4% Plus) 1 applic PRN PRN TOP W/ DRESSING CHANGES PRN PAIN; Start 02/06/17 at 08:00 Gentamicin Sulfate (Gentamicin 0.1% Oint) 1 applic DAILY TOP Last administered on 02/21/17 11:58; Admin Dose 1 APPLIC; Start 02/09/17 at 09:00 Sodium Hypochlorite (Dakin'S (Dilute 1/40%)) 1 applic DAILY TOP Last administered on 02/21/17 11:58; Admin Dose 1 APPLIC; Start 02/09/17 at 09:00 Cilostazol (Pletal) 50 mg BID PO Last administered on 02/21/17 08:09; Admin Dose 50 MG; Start 02/10/17 at 21:00 IV Flush 10 ml 10 ml PRN PRN IV IV PROTOCOL; Start 02/14/17 at 13:30 Sodium Chloride (1/2 NS) 1,000 ml @ 60 mls/hr [id number] IV Last administered on 02/21/17 12:57; Admin Dose 60 MLS/HR; Start 02/14/17 at 16:00 Levofloxacin (Levaquin) 500 mg DAILY@06 PO Last administered on 02/21/17 05: 28; Admin Dose 500 MG; Start 02/16/17 at 06:00 Ibuprofen (Motrin) 400 mg Q6H PRN PO TEMPERATURE OVER 101 Last administered on 02/17/17 17:28; Admin Dose 400 MG; Start 02/16/17 at 15:30 Tiotropium Joy (Spiriva) 1 inh DAILY INH Last administered on 02/21/17 08 :10; Admin Dose 1 INH; Start 02/18/17 at 11:30 Salmeterol Xinafoate/ Fluticasone 1 inh 1 inh BID INH Last administered on 08:10; Admin Dose 1 INH; Start 02/18/17 at 11:30 Vancomycin HCl/ Sodium Chloride (Vancocin/NS) 500 ml @ 125 mls/hr Q24H IVPB Last administered on 02/21/17 05:28; Admin Dose 125 MLS/HR; Start 02/21/17 at 06:00 Guaifenesin/ Codeine Phosphate (Robitussin Ac Liquid Cup) 5 ml Q4H PRN PO COUGH ; Start 02/20/17 at 14:00 MARIAN BURNS MD Feb 21, 2017 16:44
== END 2017-02-21 18:00 | disposition home health service (06) | DRG 629 ==
LOC: E/R 12:04 → PP2 17:34
PROVIDERS: ADMIT Internal Medicine; ATTEND Internal Medicine
PROC: 4A033R1 Measurement of Arterial Saturation, Peripheral, Percutaneous Approach (ICD-10-PCS; 2017-02-04)
PROC: 3E0234Z Introduction of Serum, Toxoid and Vaccine into Muscle, Percutaneous Approach (ICD-10-PCS; 2017-02-06)
PROC: 0QBR0ZZ Excision of Left Toe Phalanx, Open Approach (ICD-10-PCS; principal; 2017-02-08)
PROC: 0HBMXZZ Excision of Right Foot Skin, External Approach (ICD-10-PCS; 2017-02-08)
PROC: 0HDRXZZ Extraction of Toe Nail, External Approach (ICD-10-PCS; 2017-02-08)
PROC: 02HV33Z Insertion of Infusion Device into Superior Vena Cava, Percutaneous Approach (ICD-10-PCS; 2017-02-14)
DX: E11.621 Type 2 diabetes mellitus with foot ulcer (principal); M86.8X7 Other osteomyelitis, ankle and foot; N17.0 Acute kidney failure with tubular necrosis; E11.10 Type 2 diabetes mellitus with ketoacidosis without coma; N39.0 Urinary tract infection, site not specified; L97.526 Non-pressure chronic ulcer of other part of left foot with bone involvement without evidence of necrosis; E11.52 Type 2 diabetes mellitus with diabetic peripheral angiopathy with gangrene; E11.42 Type 2 diabetes mellitus with diabetic polyneuropathy; E78.00 Pure hypercholesterolemia, unspecified; B96.20 Unspecified Escherichia coli [E. coli] as the cause of diseases classified elsewhere; L97.511 Non-pressure chronic ulcer of other part of right foot limited to breakdown of skin; E11.69 Type 2 diabetes mellitus with other specified complication; E11.65 Type 2 diabetes mellitus with hyperglycemia; E66.9 Obesity, unspecified; Z23 Encounter for immunization; L60.0 Ingrowing nail; R06.2 Wheezing; E11.22 Type 2 diabetes mellitus with diabetic chronic kidney disease; I12.9 Hypertensive chronic kidney disease with stage 1 through stage 4 chronic kidney disease, or unspecified chronic kidney disease; N18.9 Chronic kidney disease, unspecified; E11.21 Type 2 diabetes mellitus with diabetic nephropathy; E87.6 Hypokalemia; D63.8 Anemia in other chronic diseases classified elsewhere; K21.9 Gastro-esophageal reflux disease without esophagitis; Z68.30 Body mass index [BMI] 30.0-30.9, adult; Z79.82 Long term (current) use of aspirin; Z79.4 Long term (current) use of insulin
CPT/HCPCS: 36415; 36569; 71010; 73630; 76937; 80048; 80053; 80061; 80202; 81001; 82565; 82803; 82962; 83036; 83605; 84520; 85025; 85651; 86140; 87070; 87081; 90686; 94640; 94664; 96361; 96365; 96372; 96375; 97162; A4310; J0696; J1650; J1815; J2270; J2405; J2543; J2997; J3370; J7030; J7040; J7050